=== PATIENT | female | born 1960 | race Caucasian/White ===

== ENCOUNTER 2020-08-04 16:13 | Outpatient (REF) | payer MEDICAID, SELFPAY ==
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
== END 2020-08-04 16:14 | disposition home or self-care (01) ==
LOC: HO.MAMMO 16:13
PROVIDERS: Visit Provider Internal Medicine
DX: Z12.31 Encounter for screening mammogram for malignant neoplasm of breast (principal)
CPT/HCPCS: 77063; 77067

== ENCOUNTER 2020-10-02 16:22 | Emergency (ER) | payer OTHER, MEDICAID, SELFPAY ==
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
[2020-10-02 16:42] VITALS: BP 177/95; PULSE 76; RESP 18; TEMP 35.7; O2SAT 97
[2020-10-02 16:45] VITALS: BP 180/80; PULSE 80; O2SAT 98
[2020-10-02 16:48] VITALS: BP 177/82; PULSE 78; RESP 18; TEMP 36.9; O2SAT 97; BMI 30.6
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
--- NOTE | 2020-10-02 18:07 | PC.NURSE ---
pt ambulating to restroom w c collar on despite educationfrom this rn. pt cleared from c spine by provider while in restroom. pt then ambulated to xray w slow, steady gait.
== END 2020-10-02 20:46 | disposition home or self-care (01) ==
PROVIDERS: Emergency Provider Internal Medicine
DX: S00.83XA Contusion of other part of head, initial encounter (principal); S80.02XA Contusion of left knee, initial encounter; S60.222A Contusion of left hand, initial encounter; S70.02XA Contusion of left hip, initial encounter; S16.1XXA Strain of muscle, fascia and tendon at neck level, initial encounter; V43.62XA Car passenger injured in collision with other type car in traffic accident, initial encounter; M16.0 Bilateral primary osteoarthritis of hip; M17.12 Unilateral primary osteoarthritis, left knee; Y93.89 Activity, other specified; Y92.414 Local residential or business street as the place of occurrence of the external cause; Y99.9 Unspecified external cause status
CPT/HCPCS: 70450; 71046; 72125; 73120; 73502; 73564; 99284

== ENCOUNTER 2020-10-13 16:02 | Outpatient (REF) | payer MEDICAID, OTHER, SELFPAY | END 2020-10-13 16:03 | disposition home or self-care (01) | LOC: HO.HOSX 16:02 | PROVIDERS: Visit Provider Orthopaedic Surgery | DX: Z13.89 Encounter for screening for other disorder (principal) ==

== ENCOUNTER → 2020-10-27 11:14 | Outpatient (BNVA) | payer MEDICAID, SELFPAY | PROVIDERS: PCP Internal Medicine; Visit Provider Orthopaedic Surgery | DX: M79.642 Pain in left hand (principal); M25.532 Pain in left wrist; M79.632 Pain in left forearm | CPT/HCPCS: 99202 ==

== ENCOUNTER 2020-12-11 13:39 | Outpatient (REF) | payer MEDICAID, SELFPAY ==
[2020-12-12 04:52] LABS: CT PCR NOT DETECTED (Not Detect.); NG PCR NOT DETECTED (Not Detect.)
[2020-12-12 11:58] LABS: BV Int Neg Control Negative (Negative); BV Int Pos Control Positive (Positive)
== END 2020-12-11 13:40 | disposition home or self-care (01) ==
LOC: HO.LAB 13:39
PROVIDERS: PCP Internal Medicine; Visit Provider Obstetrics & Gynecology
DX: R10.2 Pelvic and perineal pain (principal); N76.6 Ulceration of vulva; R31.29 Other microscopic hematuria
CPT/HCPCS: 87086; 87255; 87480; 87491; 87510; 87591; 87660; 99212

== ENCOUNTER 2020-12-31 12:33 | Outpatient (REF) | payer MEDICAID, SELFPAY ==
--- NOTE | ~2020-12-31 | US_ITS ---
EXAMINATION: PELVIC ULTRASOUND CLINICAL INFORMATION: Pain COMPARISON: Previous CT of the abdomen and pelvis February 2020 and pelvic ultrasound February 2015 TECHNIQUE: Transabdominal and transvaginal pelvic ultrasound was performed. Transvaginal exam was performed for better visualization of the uterus and ovaries. Exam is limited due to patient body habitus. FINDINGS: The uterus measures 6 x 3 x 3.8 cm in dimension. No focal uterine lesion is seen. Endometrial thickness is normal measuring 0.4 cm. There are multiple nabothian cysts in the cervix. The right ovary is normal-appearing and measures 2.4 x 1.1 x 1.2 cm. The left ovary is not seen. There is no fluid in the pelvis. US/US pelvic and transvaginal IMPRESSION: Very limited exam. Normal-appearing uterus and right ovary. Left ovary not seen.
== END 2020-12-31 12:34 | disposition home or self-care (01) ==
LOC: HO.US 12:33
PROVIDERS: Visit Provider Obstetrics & Gynecology
DX: R10.2 Pelvic and perineal pain (principal)
CPT/HCPCS: 76830; 76856

== ENCOUNTER → 2021-01-26 11:49 | Outpatient (BNVA) | payer MEDICAID, SELFPAY | PROVIDERS: Visit Provider Obstetrics & Gynecology ==

== ENCOUNTER 2021-02-03 11:38 | Outpatient (REF) | payer MEDICAID, SELFPAY ==
[2021-02-04 08:50] LABS: HBsAGNum1 0.18 S/CO (0.00-0.99); HIV AB/AG Nonreactive (Nonreactive); HIV Num 1 0.05 S/CO (0.00-0.99); Hepatitis B Surface Antigen Negative (Negative); ~HepC Num1 0.11 S/CO (0.00-0.79); ~Hepatitis C Antibody Nonreactive (Nonreactive)
[2021-02-04 09:10] LABS: Syphilis Screen Reactive (Nonreactive)
[2021-02-08 17:21] LABS: HSV 1 IgM IFA Negative (Negative); HSV 2 IgM IFA Negative (Negative)
[2021-02-14 13:16] LABS: RPR Quantitative Reactive 1:1 (Nonreactive); T.Pallidum Particle Agg Test Reactive (Nonreactive)
== END 2021-02-03 11:39 | disposition home or self-care (01) ==
LOC: HO.LAB 11:38
PROVIDERS: PCP Internal Medicine; Visit Provider Obstetrics & Gynecology
DX: Z01.84 Encounter for antibody response examination (principal); Z11.4 Encounter for screening for human immunodeficiency virus [HIV]; Z11.3 Encounter for screening for infections with a predominantly sexual mode of transmission; Z11.59 Encounter for screening for other viral diseases; A60.9 Anogenital herpesviral infection, unspecified
CPT/HCPCS: 36415; 86592; 86695; 86696; 86780; 86803; 87340; 87389

== ENCOUNTER → 2021-02-18 13:07 | Outpatient (BNVA) | payer MEDICAID, SELFPAY | PROVIDERS: Visit Provider Obstetrics & Gynecology | DX: R31.29 Other microscopic hematuria (principal); A60.00 Herpesviral infection of urogenital system, unspecified; A52.8 Late syphilis, latent | CPT/HCPCS: 99212; J0561 ==

== ENCOUNTER → 2021-02-25 12:59 | Outpatient (BNVA) | payer MEDICAID, SELFPAY | PROVIDERS: Visit Provider Obstetrics & Gynecology | DX: A52.8 Late syphilis, latent (principal); A60.00 Herpesviral infection of urogenital system, unspecified | CPT/HCPCS: 96372; 99202; 99211; J0561 ==

== ENCOUNTER 2021-03-03 14:48 | Outpatient (REF) | payer MEDICAID, SELFPAY ==
[2021-03-03 16:12] LABS: Blood Urea Nitrogen 15 mg/dL (9-16); Estimated Glomerular Filt Rate > 60
== END 2021-03-03 14:49 | disposition home or self-care (01) ==
LOC: HO.CT 14:48
PROVIDERS: Visit Provider Obstetrics & Gynecology
DX: R31.29 Other microscopic hematuria (principal); A52.8 Late syphilis, latent
CPT/HCPCS: 36415; 82565; 84520; 96372; 99211; J0561

== ENCOUNTER 2021-03-05 13:04 | Outpatient (REF) | payer MEDICAID, SELFPAY ==
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
[2021-03-05] MEDS: iohexoL 350 MG/ML 100 ML INFUS..BTL IV (13:51)
== END 2021-03-05 13:05 | disposition home or self-care (01) ==
LOC: HO.CT 13:04
PROVIDERS: Visit Provider Obstetrics & Gynecology
DX: R31.29 Other microscopic hematuria (principal)
CPT/HCPCS: 74178; Q9967

== ENCOUNTER 2021-03-18 13:58 | Outpatient (REF) | payer MEDICAID, SELFPAY ==
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
== END 2021-03-18 13:59 | disposition home or self-care (01) ==
LOC: HO.MAMMO 13:58
PROVIDERS: PCP Internal Medicine; Visit Provider Emergency Medicine
DX: N64.52 Nipple discharge (principal); R23.4 Changes in skin texture
CPT/HCPCS: 76642

== ENCOUNTER 2021-03-25 10:55 | Outpatient (REF) | payer MEDICAID, SELFPAY ==
--- NOTE | ~2021-03-25 | XR_ITS ---
EXAMINATION: XR HIP, RIGHT CLINICAL INFORMATION: Right hip pain. COMPARISON: Pelvic radiograph dated 10/02/2020. TECHNIQUE: 2 views of the right hip. FINDINGS: [id number] joint space narrowing with subchondral cirrhosis, subchondral cystic change, and marginal osteophytes. Findings are similar when compared to the prior examination. Right sacroiliac subchondral sclerosis and small marginal osteophytes. No fracture or dislocation. XR/XR hip RT min 2V IMPRESSION: Moderate right hip osteoarthritis, unchanged. [id number]-[id number] right sacroiliac joint osteoarthritis, unchanged.
== END 2021-03-25 10:56 | disposition home or self-care (01) ==
LOC: HO.XRAY 10:55
PROVIDERS: PCP Internal Medicine; Visit Provider Internal Medicine
DX: M25.551 Pain in right hip (principal)
CPT/HCPCS: 73502

== ENCOUNTER → 2021-04-03 11:07 | Outpatient (BNVA) | payer MEDICAID, SELFPAY | PROVIDERS: PCP Internal Medicine; Referring Provider Emergency Medicine; Visit Provider Surgery | DX: N64.52 Nipple discharge (principal); L29.8 Other pruritus; T21.01XS Burn of unspecified degree of chest wall, sequela; F17.210 Nicotine dependence, cigarettes, uncomplicated; Z88.6 Allergy status to analgesic agent | CPT/HCPCS: 99202 ==

== ENCOUNTER 2021-04-20 08:54 | Day surgery (SDC) | payer MEDICAID, SELFPAY ==
[2021-04-13 13:53] VITALS: BMI 42.0
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
[2021-04-20 09:36] LABS: Glucose, Whole Blood 119 mg/dL (60-115)
[2021-04-20 09:39] VITALS: BP 153/80; PULSE 63; RESP 16; TEMP 36.5; O2SAT 99
[2021-04-20] MEDS: Lactated Ringers 1,000 ML 100 ML IVCONT (09:59)
--- NOTE | 2021-04-20 10:00 | MHC.SHP ---
Pre-Procedural Eval Section A Date of Service: 04/20/21 The patient is an INPATIENT: No Changes since office visit: Yes Patient answered all questions; No Cold of Flu in the past 2 weeks, No New Medical Problems and No Changes in Medication The History & Physical has been completed within 30 days and I have reviewed it.: Yes Section B Chief Complaint: Nipple discharge Allergies: Allergies Allergy/AdvReac Type Severity Reaction Status Date / Time morphine [MORPHINE] Allergy Unknown UNKNOWN Verified 04/20/21 09:17 Plan Diagnosis/Plan: Unchanged I have reviewed the history and physical and performed a pertinent physical examination on my patient. No changes have occurred unless specified.
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
[2021-04-20 11:15] VITALS: BP 136/74; PULSE 53; RESP 16; TEMP 36.2; O2SAT 100
[2021-04-20 11:20] VITALS: BP 147/78; PULSE 56; RESP 18; O2SAT 100
[2021-04-20 11:25] VITALS: BP 149/78; PULSE 63; RESP 18; O2SAT 98
[2021-04-20 11:32] VITALS: BP 156/90; PULSE 60; RESP 18; O2SAT 97
[2021-04-20 11:47] VITALS: BP 167/83; PULSE 60; RESP 17; TEMP 36.4; O2SAT 97
[2022-11-12 11:34] VITALS: BMI 39.3
== END 2021-04-20 12:00 | disposition home or self-care (01) ==
PROVIDERS: PCP Internal Medicine; Visit Provider Surgery
PROC: (CPT 19120; principal; 2021-04-20 10:20)
DX: N63.0 Unspecified lump in unspecified breast (principal); N64.52 Nipple discharge; Z87.828 Personal history of other (healed) physical injury and trauma; Z94.5 Skin transplant status; F32.9 Major depressive disorder, single episode, unspecified; I10 Essential (primary) hypertension; G47.33 Obstructive sleep apnea (adult) (pediatric); J45.909 Unspecified asthma, uncomplicated; E11.9 Type 2 diabetes mellitus without complications; Z79.84 Long term (current) use of oral hypoglycemic drugs; Z79.82 Long term (current) use of aspirin; Z79.899 Other long term (current) drug therapy; Z88.8 Allergy status to other drugs, medicaments and biological substances; Z98.51 Tubal ligation status; F17.210 Nicotine dependence, cigarettes, uncomplicated
CPT/HCPCS: 19120; 82947; 88305; 88311; J0690; J2250; J2405; J3010

== ENCOUNTER → 2021-04-28 14:40 | Outpatient (BNVA) | payer MEDICAID, SELFPAY | PROVIDERS: PCP Internal Medicine; Referring Provider Internal Medicine; Visit Provider Surgery | DX: N60.01 Solitary cyst of right breast (principal); I10 Essential (primary) hypertension; E11.9 Type 2 diabetes mellitus without complications; E78.00 Pure hypercholesterolemia, unspecified; M79.7 Fibromyalgia; G47.33 Obstructive sleep apnea (adult) (pediatric); F17.210 Nicotine dependence, cigarettes, uncomplicated; F41.8 Other specified anxiety disorders; Z98.890 Other specified postprocedural states; Z88.6 Allergy status to analgesic agent; Z99.89 Dependence on other enabling machines and devices; Z79.84 Long term (current) use of oral hypoglycemic drugs; Z79.899 Other long term (current) drug therapy | CPT/HCPCS: 99212 ==

== ENCOUNTER 2021-06-26 13:48 | Outpatient (REF) | payer MEDICAID, SELFPAY ==
[2021-06-26 15:12] LABS: Syphilis Screen Reactive (Nonreactive)
[2021-07-02 13:26] LABS: RPR Quantitative Reactive 1:1 (Nonreactive); T.Pallidum Particle Agg Test Reactive (Nonreactive)
== END 2021-06-26 13:49 | disposition home or self-care (01) ==
LOC: HO.LAB 13:48
PROVIDERS: Visit Provider Internal Medicine
DX: A52.8 Late syphilis, latent (principal)
CPT/HCPCS: 36415; 86592; 86780

== ENCOUNTER → 2021-06-30 14:46 | Outpatient (BNVA) | payer MEDICAID, SELFPAY | PROVIDERS: Visit Provider Internal Medicine | DX: A52.8 Late syphilis, latent (principal) ==

== ENCOUNTER 2021-07-09 14:51 | Outpatient (REF) | payer MEDICAID, SELFPAY ==
[2021-07-09 16:43] LABS: Urine Cytology See Pathology rpt
== END 2021-07-09 14:52 | disposition home or self-care (01) ==
LOC: HO.LAB 14:51
PROVIDERS: PCP Internal Medicine
DX: R31.9 Hematuria, unspecified (principal)
CPT/HCPCS: 88112; 99202

== ENCOUNTER → 2021-07-28 11:17 | Outpatient (BNVA) | payer MEDICAID, SELFPAY | PROVIDERS: Visit Provider Internal Medicine ==

== ENCOUNTER 2021-07-30 14:59 | Outpatient (REF) | payer MEDICAID, SELFPAY ==
--- NOTE | ~2021-07-30 | US_ITS ---
EXAMINATION: US RETROPERITONEAL LIMITED (RENAL ONLY) CLINICAL INFORMATION: Hematuria, unspecified. COMPARISON: CT abdomen and pelvis without and with contrast 03/05/2021. TECHNIQUE: Real-time imaging of the kidneys. FINDINGS: RIGHT KIDNEY: 11.4 x 5.0 x 6.4 cm (SAG x AP x TRV). The kidney is normal in size, contour, and echogenicity. Renal cortical thickness is normal. There is a 1 x 0.9 x 0.7 cm hypoechoic lesion exophytic to the midpole this is similar in size to previous CT scan February 2021 when compared with previous CT scans this probably represents a hyperdense cyst. No renal calculi or hydronephrosis. LEFT KIDNEY: 11.0 x 5.8 x 5.7 cm (SAG x AP x TRV). The kidney is normal in size, contour, and echogenicity. Renal cortical thickness is normal. There is a 0.7 cm cyst with wall calcification or milk of calcium cyst in the lower pole. There is a 9 mm peripelvic cyst in the midpole. There are 2 small echogenic densities measuring 4 mm in the mid and lower pole questionable for small stones. No stone is seen on most recent CT of the abdomen and pelvis February 2021. No hydronephrosis. US/US renal BI IMPRESSION: Stable 1 cm hypoechoic lesion exophytic to the lateral mid right kidney. When compared with previous CT scans this probably represents a hyperdense or complex cyst. Small left renal cysts. Question small left renal stones. No stone is seen on recent CT of the abdomen and pelvis February 2021.
== END 2021-07-30 15:00 | disposition home or self-care (01) ==
LOC: HO.US 14:59
DX: R31.9 Hematuria, unspecified (principal)
CPT/HCPCS: 76775

== ENCOUNTER 2021-08-06 13:54 | Outpatient (REF) | payer MEDICAID, SELFPAY | END 2021-08-06 13:55 | disposition home or self-care (01) | LOC: HO.MAMMO 13:54 | PROVIDERS: Visit Provider Internal Medicine | DX: Z13.89 Encounter for screening for other disorder (principal) ==

== ENCOUNTER → 2021-08-18 12:54 | Outpatient (BNVA) | payer MEDICAID, SELFPAY | PROVIDERS: PCP Internal Medicine; Referring Provider Internal Medicine; Visit Provider Surgery | DX: N64.4 Mastodynia (principal); Z98.890 Other specified postprocedural states | CPT/HCPCS: 99212 ==

== ENCOUNTER 2021-08-21 11:58 | Outpatient (REF) | payer MEDICAID, SELFPAY ==
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
== END 2021-08-21 11:59 | disposition home or self-care (01) ==
LOC: HO.MAMMO 11:58
PROVIDERS: Visit Provider Surgery
DX: N64.4 Mastodynia (principal); Z98.890 Other specified postprocedural states
CPT/HCPCS: 76641

== ENCOUNTER → 2021-09-03 15:01 | Outpatient (BNVA) | payer MEDICAID, SELFPAY | PROVIDERS: PCP Internal Medicine; Referring Provider Internal Medicine; Visit Provider Surgery | DX: N64.4 Mastodynia (principal) | CPT/HCPCS: 99212 ==

== ENCOUNTER 2021-09-17 06:40 | Outpatient (REF) | payer MEDICAID, SELFPAY ==
--- NOTE | ~2021-09-17 | XR_ITS ---
EXAMINATION: XR PELVIS CLINICAL INFORMATION: Pain COMPARISON: Previous hip x-rays from September and March 2021 TECHNIQUE: AP view of the pelvis. FINDINGS: There is bilateral hip arthritis, right greater than left. This does not appear appreciably changed. There is soft tissue ossification adjacent to the left greater trochanter. Bones of the pelvis are normal. There are degenerative changes of the visualized lower lumbar spine. Soft tissues are normal. XR/XR pelvis 1-2V IMPRESSION: Bilateral hip arthritis, right greater than left.
== END 2021-09-17 06:41 | disposition home or self-care (01) ==
LOC: HO.HOSX 06:40
PROVIDERS: Visit Provider Physician Assistant
DX: M70.61 Trochanteric bursitis, right hip (principal)
CPT/HCPCS: 72170; 99202

== ENCOUNTER → 2021-09-22 08:29 | Outpatient (BNVA) | payer MEDICAID, SELFPAY | PROVIDERS: PCP Internal Medicine | DX: Z13.89 Encounter for screening for other disorder (principal) ==

== ENCOUNTER 2021-09-30 14:07 | Outpatient (REF) | payer MEDICAID, SELFPAY ==
[2021-09-30 17:28] LABS: CT PCR NOT DETECTED (Not Detect.); NG PCR NOT DETECTED (Not Detect.)
[2021-10-01 11:10] LABS: BV Int Neg Control Negative (Negative); BV Int Pos Control Positive (Positive)
== END 2021-09-30 14:08 | disposition home or self-care (01) ==
LOC: HO.LAB 14:07
PROVIDERS: PCP Internal Medicine; Visit Provider Obstetrics & Gynecology
DX: R10.2 Pelvic and perineal pain (principal); N39.0 Urinary tract infection, site not specified; N76.0 Acute vaginitis
CPT/HCPCS: 87086; 87480; 87491; 87510; 87591; 87660; 99212

== ENCOUNTER → 2021-10-08 14:02 | Outpatient (REF) | payer MEDICAID, SELFPAY | LOC: HO.CARD 14:02 | PROVIDERS: PCP Internal Medicine; Referring Provider Internal Medicine; Visit Provider Internal Medicine | DX: R00.2 Palpitations (principal); I10 Essential (primary) hypertension | CPT/HCPCS: 93005; 99202 ==

== ENCOUNTER → 2021-11-27 09:00 | Outpatient (REF) | payer MEDICAID, SELFPAY ==
--- NOTE | 2021-11-27 09:14 | ECG_ITS ---
Hook-up date: 2021-11-27 09:03:00 Duration: 47:59:00 Test Indications: PALPITATIONS Medications: 20170817 QRS complexes 12 Ventricular ectopics which represent <1 % of total QRS comp. 255 Supraventricular ectopics which represent <1 % of total QRS comp. * Paced QRS complexs which represent % of total QRS comp. VENTRICULAR ECTOPY 12 Isolated 0 Bigeminal Cycles 0 Couplets 0 Runs 0 Beats in Runs * Beats LONGEST at * BPM at :: -- * Beats FASTEST at * BPM at :: -- SUPRAVENTRICULAR ECTOPY 194 Isolated 10 Couplets 6 Runs 41 Beats in Runs 21 Beats LONGEST at 46 BPM at 07:21:25 2021-11-28 3 Beats FASTEST at 120 BPM at 18:59:19 2021-11-27 HEART RATES 35 MIN at 05:19:47 2021-11-28 70 AVG 135 MAX at 15:22:37 2021-11-28 LONGEST RR 2.5200 secs at 07:15:52 2021-11-28 S-T LEVELS Channel 1 - 128 mm at 09:03:00 2021-11-27 - 128 mm at 09:03:00 2021-11-27 Channel 2 - 128 mm at 09:03:00 2021-11-27 - 128 mm at 09:03:00 2021-11-27 Channel 3 - 128 mm at 02:82:21 -- - 128 mm at 02:82:21 Basic rhythm Normal sinus rhythm No sinus pauses noted. 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
--- NOTE | 2021-11-27 09:14 | CA_ITS ---
Transthoracic Echocardiogram Patient (Last, First, Middle): Violet Pascal, Gender: Female Date of : 1960 Age: 61 Procedure Date: 11/27/2021 Procedure Type: Transthoracic Echocardiogram Location: OP Height: 157.48 cm Weight: 106.6 kg BSA: 2.05 m2 Heart Rate: 62 bpm BP: 136 / 70 mmHg Representative Government Relations: SB Referring MD: Maury Glover MD Symptoms: R00.2 - Palpitations Study Quality: Adequate ECG Rhythm: Sinus Conclusions: - Normal left ventricular size and systolic function. The visually estimated ejection fraction is between 55-60%. - Elevated filling pressures. There is severe septal asymmetric hypertrophy. - Normal right ventricular cavity size and systolic function. - No significant valvular or pericardial pathology. Findings Left Ventricle Normal left ventricular size and systolic function. The visually estimated ejection fraction is between 55-60%. There is no evidence of regional wall motion abnormalities. Abnormal diastolic function is noted. Spectral Doppler is indicative of a pseudonormal filling pattern. Elevated filling pressures. There is severe septal asymmetric hypertrophy. Right Ventricle Normal right ventricular cavity size and systolic function. Atria The left atrium is normal in size. Aortic Valve Normal aortic valve structure and function. There is no aortic valve stenosis. There is no aortic valve regurgitation. Mitral Valve The mitral valve appears normal. There is no mitral valve regurgitation. There is no mitral valve stenosis. Pulmonic Valve Normal pulmonic valve structure and function. There is trace pulmonic valve regurgitation. Tricuspid Valve Normal tricuspid valve structure and function. There is no tricuspid valve regurgitation. Tricuspid regurgitation envelope is inadequate for calculation of right ventricular systolic pressure. Normal right atrial pressure. Great Vessels All visible segments of the aorta are normal in size. The visualized portions of the pulmonary artery and branches are normal. Venous The inferior vena cava is normal in size and collapses greater than 50% with inspiration. Pericardium/Pleural There is no evidence of pericardial effusion. Measurements 2D Linear Measurements IVSd: 1.47 0.6-0.9/0.6-1.0 cm LVIDd: 4.74 3.9-5.3/4.2-5.9 cm LVIDd Index: 2.31 2.4-3.2/2.2-3.1 cm/m2 LVIDs: 2.89 2.0-3.6 cm LVPWd: 0.84 0.7-1.1 cm Ao Root: 2.80 2.1-3.5 cm LA Diam: 3.10 2.7-3.8/3.0-4.0 cm LAIDs Index: 1.51 1.5-2.3 cm/m2 LV Mass: 253.82 67-162/88-224 g LV Mass Index: 123.81 43-95/49-115 g/m2 LVOT Diam: 2.00 3.0+(-)1.3 cm 2D Systolic Function EF 4C: 62.80 >55% EF 2C: 56.80 >55% Mitral Valve MV Pk E: 0.85 MV PK A: 0.59 MV Decel Time: 234.00 E/A: 1.40 E'Lateral: 8.63 E'Medial: 4.65 E/E' Med: 18.20 E/E' Lat: 9.80 PHT: 69.00 MVA PHT: 3.19 Decel Elk: 3.61 Aortic Valve AoV Pk Beny: 1.43 AoV Mn Beny: 0.96 AoV VTI: 0.31 AoV Pk Grad: 8.00 Aov Mn Grad: 4.00 SAMANTHA Cont.VTI: 2.48 LVOT LVOT Pk Beny: 1.10 LVOT Mn Beny: 0.80 LVOT VTI: 0.25 LVOT Pk Grad: 5.00 LVOT Mn Grad: 3.00 LVOT Diam: 2.00 LVOT Area: 3.14 Diastolic Function MV Pk E: 0.85 MV Pk A: 0.59 E/A: 1.40 E'Medial: 4.65 E/E' Med: 18.20 E' Laterial: 8.63 E/E' Lat: 9.80 Right Ventricle TAPSE (mm): 23.50 TVS' Beny: 12.20 Tricuspid Valve RA Press: 8.00 Great Vessels Aorta Ao Root-2D: 2.80 2.0-3.7 cm Sinus of Valsalva: 2.80 2.0-3.5 cm Ao Asc: 3.00 2.1-3.4 cm Pulmonary Veins Pulm Vein S/D 1.10 Pulmonary Valve PV Pk Beny: 0.78 Peak PV Grad: 2.00 Updated in Other Vendor System with Status of Final Placido Miller MD electronically signed on 11/28/2021 7:41:38 PM with status of Final
== END ==
LOC: HO.CARD 09:00
PROVIDERS: Visit Provider Internal Medicine
DX: R00.2 Palpitations (principal)
CPT/HCPCS: 93225; 93226; 93306

== ENCOUNTER 2021-11-29 15:43 | Emergency (ER) | payer MEDICAID, SELFPAY ==
--- NOTE | ~2021-11-29 | XR_ITS ---
EXAMINATION: XR CHEST CLINICAL INFORMATION: Cough. COMPARISON: Chest 10/02/2020 TECHNIQUE: 2 views of the chest were obtained. FINDINGS: No significant abnormality is noted involving the heart, lungs, mediastinum, bony thorax or soft tissues. XR/XR chest 2V IMPRESSION: Unremarkable chest examination.
[2021-11-29 15:47] VITALS: BP 184/88; PULSE 65; RESP 18; TEMP 36.4; O2SAT 100; BMI 43.5
[2021-11-29 16:26] LABS: COVID-19 Test Negative (Negative); IDNOW Serial# 16C4AD1C
--- NOTE | 2021-11-29 17:26 | ED_ITS ---
HPI - General Adult General Chief complaint: General Medical Stated complaint: exposure to COVID Time Seen by Provider: 11/29/21 16:56 Source: patient Mode of arrival: ambulatory History of Present Illness HPI narrative: 61-year-old female with a past medical history anxiety, depression, asthma, diabetes, hyperlipidemia, fibromyalgia, GERD, hypertension, MARK on CPAP, presenting to the ED requesting COVID-19 testing as lives with someone who just tested positive for COVID-19 today. Reports sinus pain, rhinorrhea, and productive cough. Denies fever, chills, chest pain, shortness breath Related Data Home Medications Medication Instructions Recorded Confirmed duloxetine 30 mg capsule,delayed 30 mg PO QPM 04/03/21 10/08/21 release duloxetine 60 mg capsule,delayed 60 mg PO QAM 04/03/21 10/08/21 release fluoride (sodium) 1.1 % dental appl PO BEDTIME 04/03/21 10/08/21 cream (SF 5000 Plus) hydrochlorothiazide 12.5 mg tablet 12.5 mg PO QAM 04/03/21 10/08/21 albuterol sulfate 1 amp inhalation Q6H PRN Wheezing 04/13/21 10/08/21 albuterol sulfate 90 mcg/actuation 2 puff inhalation Q4-6H PRN 04/13/21 10/08/21 aerosol inhaler (ProAir HFA) Wheezing aspirin 81 mg tablet,delayed 1 tab PO DAILY 04/13/21 10/08/21 release cetirizine 10 mg tablet 1 tab PO QAM 04/13/21 10/08/21 cholecalciferol (vitamin D3) 25 1 cap PO QAM 04/13/21 10/08/21 mcg (1,000 unit) capsule (Vitamin D3) cyclosporine 0.05 % eye drops in a 1 drp ophthalmic (eye) BID 04/13/21 10/08/21 dropperette (Restasis) docusate sodium 100 mg capsule 1 - 2 cap PO BEDTIME PRN 04/13/21 10/08/21 Constipation fluticasone propionate 50 2 spray intranasal DAILY 04/13/21 10/08/21 mcg/actuation nasal spray,suspension gabapentin 300 mg capsule 2 cap PO TID 04/13/21 10/08/21 glipizide 10 mg tablet 1 tab PO QAM 04/13/21 10/08/21 hydroxyzine pamoate 25 mg capsule 1 - 2 cap PO BEDTIME PRN Anxiety 04/13/21 10/08/21 loratadine 10 mg tablet 1 tab PO DAILY PRN allergies 04/13/21 10/08/21 metformin 500 mg tablet 2 tab PO 04/13/21 10/08/21 omeprazole 20 mg capsule,delayed 1 cap PO QAM 04/13/21 10/08/21 release sitagliptin 50 mg tablet (Januvia) 1 tab PO QAM 04/13/21 10/08/21 alcohol swabs (Alcohol Prep Pads) pad topical DAILY 07/09/21 10/08/21 lancets 33 gauge (TRUEplus Lancets) #100 ea 07/09/21 10/08/21 peg [id number] 1 1 drp ophthalmic (eye) QID PRN 07/09/21 10/08/21 %-0.2 %-0.2 % eye drops (Dry Eye Relief) ketoconazole 2 % shampoo topical 2XW 09/22/21 10/08/21 mometasone 0.1 % topical ointment topical 09/22/21 10/08/21 polyvinyl alcohol 1.4 % eye drops 1 drp ophthalmic (eye) 09/22/21 10/08/21 (Artificial Tears (polyvinyl alcohol)) atorvastatin 40 mg tablet 40 mg PO BEDTIME 10/08/21 10/08/21 losartan 50 mg tablet 50 mg PO DAILY 10/08/21 10/08/21 nifedipine 30 mg tablet,extended 30 mg PO DAILY 10/08/21 10/08/21 release Previous Rx's Medication Instructions Recorded cyclobenzaprine 5 mg tablet 10 mg PO TID PRN muscle spasm #10 10/02/20 tabs naproxen 500 mg tablet 500 mg PO BID PRN pain #10 tabs 10/02/20 oxycodone-acetaminophen 5 mg-325 1 tab PO Q6H PRN pain (scale score 04/20/21 mg tablet (Endocet) 7-10) #14 tabs ibuprofen 600 mg tablet 600 mg PO Q6H PRN pain #20 tabs 04/22/21 celecoxib 200 mg capsule (Celebrex) 200 mg PO BID 30 days #60 caps 09/17/21 nitrofurantoin 100 mg PO BID 5 days #10 caps 09/30/21 monohydrate/macrocrystals 100 mg capsule (Macrobid) terconazole 0.8 % vaginal cream 1 appful vaginal BEDTIME 3 days 09/30/21 #20 grams guaifenesin 200 mg/5 mL oral liquid 200 mg (5 mL) PO Q4H PRN cough 11/29/21 #118 mL Allergies Allergy/AdvReac Type Severity Reaction Status Date / Time morphine [MORPHINE] Allergy Unknown UNKNOWN Verified 10/08/21 14:18 Review of Systems Review of Systems: Constitutional: No Fever, No Chills ENT/Mouth: No Ear Pain, + Nasal Congestion, No Hoarseness, No sore throat, + Rhinorrhea, No Swallowing Difficulty Cardiovascular: No Chest Pain, No SOB Respiratory: + Cough, + Sputum, No Wheezing Gastrointestinal: No Nausea, No Vomiting, No Diarrhea, No Constipation, No Abdominal pain Genitourinary: No Dysuria, No Urinary Frequency, No Hematuria, No Urinary Incontinence/retention, No Flank Pain Musculoskeletal: No joint pain, No Myalgias, No Joint Swelling Skin: No Skin Lesions, No rash Neuro: No Weakness, No Numbness, No Paresthesias Yes all other systems are reviewed and are negative [facility] Past Medical History Attestation statement: The following information was validated with the patient. Medical History Anxiety and depression Arthritis Asthma Back pain Chronic sinusitis Diabetes Elevated cholesterol Fibromyalgia GERD (gastroesophageal reflux disease) HTN (hypertension) MARK on CPAP Smoker Surgical History H/O tubal ligation History of skin graft Hx of colonoscopy Hx of dilation and curettage Family History Family History Father No problems noted. Mother No problems noted. 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 Physical Exam ED Vital Signs: Vital Signs - 24 hr 11/29/21 15:47 Temperature 97.5 F Pulse Rate 65 Respiratory Rate 18 Blood Pressure 184/88 H Pulse Oximetry 100 Oxygen Delivery Method Room Air BMI result Body Mass Index 43.5 Const General: cooperative, healthy appearing, no acute distress, well developed, alert and awake Orientation/consciousness: patient oriented x3 Limitations: no limitations HENMT Head: Yes normal to inspection and Yes atraumatic Ears: hearing grossly normal bilaterally General nose exam: Normal external nose present Face and sinus: Yes normal facial exam Mouth: Normal oral and palatal mucosa present Throat: Yes posterior oropharynx normal, Yes tonsils normal, Yes uvula midline, No peritonsillar mass and No uvula laterally displaced Eyes General: appearance normal, both eyes and all related structures EOM: EOMs intact bilaterally Neck Neck: Yes normal visual inspection, Yes no lymphadenopathy, Yes no meningeal signs, Yes supple and No anterior neck swelling Resp Effort & Inspection: normal respiratory effort and no respiratory distress Auscultation: clear to auscultation bilaterally, no crackles, no rales, no rhonchi and no wheezes Cardio Rate: regular rate Heart sounds: S1 normal heart sound present and S2 normal heart sound present Skin Rashes: no rashes Wounds: no wounds Neuro General: patient oriented x3, tone normal and no meningeal signs Gait exam (Neuro): Normal gait present Extrem General: Yes normal to inspection Course Course Course Narrative: -COVID-19 negative CXR unremarkable Medical Decision Making [facility] Narrative Medical decision making narrative: 61-year-old female with a past medical history anxiety, depression, asthma, diabetes, hyperlipidemia, fibromyalgia, GERD, hypertension, MARK on CPAP, presenting to the ED requesting COVID-19 testing as lives with someone who just tested positive for COVID-19 today. On exam vital signs stable, NAD, nontoxic appearing, lungs CTA. Concern for viral illness vs pneumonia. Plan: COVID-19 testing, CXR Medical Records Medical records reviewed: Yes I reviewed the patient's medical records. Lab Data Lab results reviewed: Yes I reviewed the patient's lab results. Labs: Lab Results 11/29/21 Range/Units 15:55 COVID-19 (SAUL) Negative (Negative) COVID-19 Clin Com See Note Discharge Plan Discharge Clinical Impression: Acute viral syndrome Patient Disposition: Home, Self-Care Instructions: Viral Syndrome (ED) Additional Instructions: You tested negative for COVID-19. Her chest x-ray was unremarkable. Please consider getting retested in the next 3-5 days as you have had high exposure to COVID-19. If symptoms persist or worsen please return to the emergency department. Robitussin cough medicine was sent to the pharmacy. follow up with your doctor Kurt negativo para COVID-19. Galan radiograf?a de t?rax fue normal. Considere volver a hacerse la prueba en los pr?ximos 3 a 5 d?as, ya que wadsworth tenido geoffrey alyce exposici?n al COVID-19. Si los s?ntomas persisten o empeoran, regrese al departamento de emergencias. La medicina para la tos Robitussin fue enviada a la farmacia. seguimiento con galan m?dico Prescriptions: New guaifenesin 200 mg/5 mL liquid 200 mg PO Q4H PRN (Reason: cough) Qty: 118 0RF No Action ibuprofen 600 mg tablet 600 mg PO Q6H PRN (Reason: pain) Qty: 20 0RF cyclobenzaprine 5 mg tablet 10 mg PO TID PRN (Reason: muscle spasm) Qty: 10 0RF naproxen 500 mg tablet 500 mg PO BID PRN (Reason: pain) Qty: 10 0RF metformin 500 mg tablet 2 tab PO albuterol sulfate 2.5 mg /3 mL (0.083 %) solution for nebulization 1 amp inhalation Q6H PRN (Reason: Wheezing) cetirizine 10 mg tablet 1 tab PO QAM glipizide 10 mg tablet 1 tab PO QAM aspirin 81 mg tablet,delayed release (DR/EC) 1 tab PO DAILY docusate sodium 100 mg capsule 1 - 2 cap PO BEDTIME PRN (Reason: Constipation) gabapentin 300 mg capsule 2 cap PO TID omeprazole 20 mg capsule,delayed release(DR/EC) 1 cap PO QAM albuterol sulfate [ProAir HFA] 90 mcg/actuation HFA aerosol inhaler 2 puff inhalation Q4-6H PRN (Reason: Wheezing) fluticasone propionate 50 mcg/actuation spray,suspension 2 spray intranasal DAILY loratadine 10 mg tablet 1 tab PO DAILY PRN (Reason: allergies) hydroxyzine pamoate 25 mg capsule 1 - 2 cap PO BEDTIME PRN (Reason: Anxiety) cholecalciferol (vitamin D3) [Vitamin D3] 25 mcg (1,000 unit) capsule 1 cap PO QAM Restasis 0.05 % dropperette 1 drp ophthalmic (eye) BID Januvia 50 mg tablet 1 tab PO QAM oxycodone-acetaminophen [Endocet] 5-325 mg tablet 1 tab PO Q6H PRN (Reason: pain (scale score 7-10)) Qty: 14 0RF atorvastatin 40 mg tablet 40 mg PO BEDTIME nifedipine 30 mg tablet extended release 30 mg PO DAILY penicillin G benzathine 2,400,000 unit/4 mL syringe 2.4 mmu IM QWEEK Qty: 4 0RF alcohol swabs [Alcohol Prep Pads] Pads, Medicated topical DAILY Dry Eye Relief 1-0.2-0.2 % drops 1 drp ophthalmic (eye) QID PRN (DME) lancets [TRUEplus Lancets] 33 gauge misc See Rx Instructions Not Applicable BID Qty: 100 Rx Instructions: As directed terconazole 0.8 % cream 1 appful vaginal BEDTIME 3 Days Qty: 20 0RF nitrofurantoin monohyd/m-cryst [Macrobid] 100 mg capsule 100 mg PO BID 5 Days Qty: 10 0RF losartan 50 mg tablet 50 mg PO DAILY duloxetine 30 mg capsule,delayed release(DR/EC) 30 mg PO QPM duloxetine 60 mg capsule,delayed release(DR/EC) 60 mg PO QAM fluoride (sodium) [SF 5000 Plus] 1.1 % cream PO BEDTIME hydrochlorothiazide 12.5 mg tablet 12.5 mg PO QAM ketoconazole 2 % shampoo topical 2XW polyvinyl alcohol [Artificial Tears (polyvin alc)] 1.4 % drops 1 drp ophthalmic (eye) mometasone 0.1 % ointment topical celecoxib [Celebrex] 200 mg capsule 200 mg PO BID 30 Days Qty: 60 3RF Referrals: Pretty Molina MD [Primary Care Provider] - 3 days Print Language: Sami
== END 2021-11-29 18:19 | disposition home or self-care (01) ==
PROVIDERS: Emergency Provider Internal Medicine; PCP Internal Medicine
DX: B34.9 Viral infection, unspecified (principal); R05.9 Cough, unspecified; J34.89 Other specified disorders of nose and nasal sinuses; Z20.822 Contact with and (suspected) exposure to COVID-19; Z79.899 Other long term (current) drug therapy; F17.210 Nicotine dependence, cigarettes, uncomplicated; Z71.6 Tobacco abuse counseling
CPT/HCPCS: 71046; 87635; 99282

== ENCOUNTER 2021-12-02 13:55 | Outpatient (REF) | payer MEDICAID, SELFPAY ==
[2021-12-02 14:29] LABS: COVID-19 Test Negative (Negative); IDNOW Serial# 08D9AD1C
== END 2021-12-02 13:56 | disposition home or self-care (01) ==
LOC: HO.LAB 13:55
PROVIDERS: Visit Provider Internal Medicine
DX: Z20.822 Contact with and (suspected) exposure to COVID-19 (principal)
CPT/HCPCS: 87635; C9803

== ENCOUNTER → 2021-12-09 14:59 | Outpatient (REF) | payer MEDICAID, SELFPAY | LOC: HO.CARD 14:59 | PROVIDERS: Visit Provider Internal Medicine | DX: I42.2 Other hypertrophic cardiomyopathy (principal); I44.30 Unspecified atrioventricular block; I10 Essential (primary) hypertension | CPT/HCPCS: 99212 ==

== ENCOUNTER 2021-12-23 12:35 | Outpatient (REF) | payer MEDICAID, SELFPAY ==
--- NOTE | ~2021-12-23 | US_ITS ---
EXAMINATION: US PELVIS CLINICAL INFORMATION: Pelvic and perineal pain. COMPARISON: Previous pelvic ultrasound December [address] of the abdomen and pelvis February 2021. TECHNIQUE: Ultrasound of the pelvis is performed using both transabdominal and transvaginal transducers along with Doppler. Transvaginal imaging is performed due to inadequate visualization transabdominally. Exam is limited due to patient body habitus. FINDINGS: The uterus measures 8.4 x 4.6 x 6.3 cm in dimension. There is a large amount of fluid seen in the endometrial cavity. There is also fluid seen in the endocervical canal. This is a new finding from previous exams. No focal uterine lesion is seen. The ovaries are not seen. There is no fluid in the pelvis. US/US pelvic and transvaginal IMPRESSION: Limited exam. New large amount of fluid in the endometrial canal. The endometrium is not well visualized. Tissue sampling recommended.
== END 2021-12-23 12:36 | disposition home or self-care (01) ==
LOC: HO.US 12:35
PROVIDERS: Visit Provider Obstetrics & Gynecology
DX: R10.2 Pelvic and perineal pain (principal)
CPT/HCPCS: 76830; 76856

== ENCOUNTER → 2021-12-29 12:42 | Outpatient (REF) | payer MEDICAID, SELFPAY | LOC: HO.CARD 12:42 | PROVIDERS: Visit Provider Internal Medicine | DX: Z13.89 Encounter for screening for other disorder (principal) ==

== ENCOUNTER 2022-01-06 15:47 | Outpatient (REF) | payer MEDICAID, SELFPAY | END 2022-01-06 15:48 | disposition home or self-care (01) | LOC: HO.LAB 15:47 | PROVIDERS: Visit Provider Obstetrics & Gynecology | DX: R10.2 Pelvic and perineal pain (principal); R31.29 Other microscopic hematuria | CPT/HCPCS: 58100; 88305; 99212 ==

== ENCOUNTER → 2022-02-03 14:05 | Outpatient (BNVA) | payer MEDICAID, SELFPAY | PROVIDERS: PCP Internal Medicine; Visit Provider Obstetrics & Gynecology | DX: R10.2 Pelvic and perineal pain (principal) | CPT/HCPCS: 99212 ==

== ENCOUNTER 2022-03-02 14:27 | Outpatient (REF) | payer MEDICAID, SELFPAY ==
--- NOTE | ~2022-03-02 | US_ITS ---
EXAMINATION: US RETROPERITONEAL LIMITED (RENAL ONLY) CLINICAL INFORMATION: Cyst of kidney, acquired. COMPARISON: Ultrasound retroperitoneal limited (renal only) 07/30/2021. CT abdomen and pelvis without and with contrast 03/05/2021. TECHNIQUE: Real-time imaging of the kidneys. FINDINGS: RIGHT KIDNEY: 10.5 x 5.0 x 5.8 cm (SAG x AP x TRV). The kidney is normal in size, contour, and echogenicity. Renal cortical thickness is normal. There is a 9 x 6 x 7 mm heterogeneous but partially hyperechoic lesion exophytic to the lateral midpole. There is a 7 x 8 x 7 mm hypoechoic lesion exophytic to the lower pole with internal echoes. There is a 4 mm simple cyst in the lower pole. There are 2 stones measuring 4 and 7 mm in the upper pole. No hydronephrosis. LEFT KIDNEY: 11.0 x 4.7 x 5.0 cm (SAG x AP x TRV). The kidney is normal in size, contour, and echogenicity. Renal cortical thickness is normal. There is a 8 x 6 x 8 mm cyst with peripheral wall calcification or milk of calcium cyst in the lower pole. No renal calculi or hydronephrosis. US/US renal BI IMPRESSION: Question right upper pole renal stones and bilateral complex cysts. Small right renal simple cyst.
== END 2022-03-02 14:28 | disposition home or self-care (01) ==
LOC: HO.US 14:27
DX: N28.1 Cyst of kidney, acquired (principal); R00.2 Palpitations; I42.2 Other hypertrophic cardiomyopathy; I10 Essential (primary) hypertension
CPT/HCPCS: 76775; 99212

== ENCOUNTER → 2022-03-09 15:50 | Outpatient (BNVA) | payer MEDICAID, SELFPAY | PROVIDERS: PCP Internal Medicine; Visit Provider Surgery | DX: N64.4 Mastodynia (principal); Z98.890 Other specified postprocedural states | CPT/HCPCS: 99212 ==

== ENCOUNTER 2022-03-10 16:04 | Outpatient (REF) | payer MEDICAID, SELFPAY ==
--- NOTE | ~2022-03-10 | MM_ITS ---
EXAMINATION: MM SCREENING DIGITAL BREAST TOMOSYNTHESIS, BILATERAL CLINICAL INFORMATION: Screening. Asymptomatic. The lifetime risk of breast cancer based on the Tyrer-Cuzick Model is 7%. COMPARISON: Mammography: 08/04/2020, 07/13/2019, 07/10/2018 TECHNIQUE: Digital breast tomosynthesis is performed in both the craniocaudal and mediolateral oblique views along with computer-aided detection (CAD). Synthesized 2D images are generated from the tomosynthesis. FINDINGS: There are scattered areas of fibroglandular density (ACR BI-RADS breast composition Category b). Breast tissue composition borders on predominantly fatty. There is old scarring right breast with benign dystrophic calcification in the scar similar to prior studies. Intramammary node again noted central 11:30 left breast. There is no interval mass or architectural abnormality or abnormal calcifications. No significant changes. MM/MM tomosynthesis screening BI IMPRESSION: No mammographic evidence of malignancy. ASSESSMENT: BI-RADS 2: Benign RECOMMENDATION: Routine annual mammography screening. This patient's information was entered into a reminder system with a target due date for their next mammogram.
== END 2022-03-10 16:05 | disposition home or self-care (01) ==
LOC: HO.MAMMO 16:04
PROVIDERS: PCP Internal Medicine; Visit Provider Internal Medicine
DX: Z12.31 Encounter for screening mammogram for malignant neoplasm of breast (principal)
CPT/HCPCS: 77063; 77067

== ENCOUNTER 2022-04-19 12:35 | Outpatient (REF) | payer MEDICAID, SELFPAY ==
[2022-04-19 17:04] LABS: Urine Cytology See Pathology rpt
== END 2022-04-19 12:36 | disposition home or self-care (01) ==
LOC: HO.LAB 12:35
PROVIDERS: PCP Internal Medicine; Visit Provider Urology
DX: R31.29 Other microscopic hematuria (principal); N28.1 Cyst of kidney, acquired
CPT/HCPCS: 88112; 99212

== ENCOUNTER 2022-05-05 15:03 | Outpatient (REF) | payer MEDICAID, SELFPAY ==
[2022-05-07 07:39] LABS: Creatinine POC 0.6 mg/dL (0.5-1.4); GFR POC > 60
== END 2022-05-05 15:04 | disposition home or self-care (01) ==
LOC: HO.CT 15:03
PROVIDERS: PCP Internal Medicine; Visit Provider Urology
DX: R31.29 Other microscopic hematuria (principal)
CPT/HCPCS: 82565

== ENCOUNTER 2022-05-10 11:51 | Outpatient (REF) | payer MEDICAID, SELFPAY ==
--- NOTE | ~2022-05-10 | CT_ITS ---
EXAMINATION: CT ABDOMEN WITHOUT AND WITH CONTRAST CLINICAL INFORMATION: Microscopic hematuria COMPARISON: Previous CT of the abdomen and pelvis February 2021 and previous renal ultrasound February 2022 and pelvic ultrasound December 2021 TECHNIQUE: Contiguous axial thin section helical images of the abdomen were performed before and after the administration of oral contrast and 85 mL of Omnipaque 350 intravenous contrast. The data set was reformatted in the coronal and sagittal planes and reviewed on an independent workstation. This CT examination was performed using dose optimization techniques as appropriate, variously including the following: *Automated exposure control *Adjustment of mA and/or kV according to patient size (this includes techniques or standardized protocols for targeted exams where dose is matched to indication/reason for exam; i.e. extremities or head) *Use of iterative reconstruction technique DLP: 894 mGy-cm FINDINGS: LUNG BASES: Normal LIVER, GALLBLADDER, AND BILIARY TREE: Normal PANCREAS: Normal SPLEEN: Normal ADRENAL GLANDS AND KIDNEYS: Stable 1.5 x 2.2 cm low-attenuation left adrenal lesion probably representing a benign neuroma. Normal right adrenal gland. Innumerable small less than 1 cm renal cysts. Small 7 mm lesion exophytic to the lateral midpole of right kidney probably representing a complex cyst axial image 49 series 4 and medial upper pole left kidney probably representing a complex cyst, axial image 49 series 4 on the right and 41 series 4 on the left. Similar appearing to February 2021 exam. No stone or hydronephrosis. BOWEL LOOPS: Diverticulosis of the colon. Visualized small and large bowel is otherwise normal. Normal appendix. Normal stomach. LYMPH NODES: Normal. VASCULAR: Unremarkable. BONES: Degenerative changes of the spine. CT/CT abdomen wo/w IV con IMPRESSION: Multiple small bilateral renal cysts. 7 mm complex cyst exophytic to the lateral mid pole right kidney and exophytic to the medial upper pole of the left kidney. The remainder of the cysts probably represent simple cysts cysts. Stable low-attenuation left adrenal lesion probably representing a benign. Diverticulosis of the colon. Fleischner guidelines were followed.
[2022-05-10] MEDS: iohexoL 350 MG/ML 100 ML INFUS..BTL 85 ML IV (12:42)
[2022-05-11 07:21] LABS: Creatinine POC 0.7 mg/dL (0.5-1.4); GFR POC > 60
== END 2022-05-10 11:52 | disposition home or self-care (01) ==
LOC: HO.CT 11:51
PROVIDERS: PCP Internal Medicine; Visit Provider Urology
DX: N28.1 Cyst of kidney, acquired (principal); R31.29 Other microscopic hematuria
CPT/HCPCS: 74170; 82565; Q9967

== ENCOUNTER → 2022-05-14 12:54 | Outpatient (REF) | payer MEDICAID, SELFPAY ==
--- NOTE | 2022-05-14 12:57 | HM_ITS ---
Conclusion: 1. Patient was monitored for total period of 1 day and 23 hours 2. Baseline was normal sinus rhythm with average heart rate of 71 beats per minute 3. No significant pauses noted 4. Occasional PACs noted with total burden of 0.16% 5. No patient reported symptoms MTDD
== END ==
LOC: HO.CARD 12:54
PROVIDERS: PCP Internal Medicine; Visit Provider Internal Medicine
DX: R00.2 Palpitations (principal); I44.30 Unspecified atrioventricular block; I42.2 Other hypertrophic cardiomyopathy
CPT/HCPCS: 93226

== ENCOUNTER → 2022-07-06 12:31 | Outpatient (BNVA) | payer MEDICAID, SELFPAY | PROVIDERS: PCP Internal Medicine; Referring Provider Internal Medicine; Visit Provider Nurse Practitioner Family | DX: R00.2 Palpitations (principal); I44.30 Unspecified atrioventricular block; I42.2 Other hypertrophic cardiomyopathy; I10 Essential (primary) hypertension | CPT/HCPCS: 99212 ==

== ENCOUNTER → 2022-07-09 15:08 | Outpatient (BNVA) | payer MEDICAID, SELFPAY | PROVIDERS: PCP Internal Medicine; Visit Provider Urology | DX: R31.29 Other microscopic hematuria (principal); N32.81 Overactive bladder; N76.0 Acute vaginitis; F17.210 Nicotine dependence, cigarettes, uncomplicated; Z79.82 Long term (current) use of aspirin; Z79.899 Other long term (current) drug therapy | CPT/HCPCS: 52000; 99212 ==

== ENCOUNTER 2022-09-13 13:35 | Outpatient (REF) | payer MEDICAID, SELFPAY ==
--- NOTE | ~2022-09-13 | XR_ITS ---
EXAMINATION: XR RIBS, BILATERAL CLINICAL INFORMATION: Bilateral rib pain COMPARISON: None available. TECHNIQUE: 3 views of the bilateral ribs were obtained. FINDINGS: Lungs are clear. No consolidation, pneumothorax, or pleural effusion. The cardiomediastinal silhouette and pulmonary vasculature are normal. Osseous structures are unremarkable. Ribs are intact. No fractures are identified. XR/XR ribs BI min 4V w CXR1V IMPRESSION: Unremarkable bilateral rib examination.
== END 2022-09-13 13:36 | disposition home or self-care (01) ==
LOC: HO.XRAY 13:35
PROVIDERS: PCP Internal Medicine; Visit Provider Registered Nurse
DX: M79.7 Fibromyalgia (principal); R31.29 Other microscopic hematuria; R10.2 Pelvic and perineal pain; R39.9 Unspecified symptoms and signs involving the genitourinary system; R39.15 Urgency of urination
CPT/HCPCS: 71111; 99212

== ENCOUNTER 2022-09-13 16:34 | Outpatient (REF) | payer MEDICAID, SELFPAY | END 2022-09-13 16:35 | disposition home or self-care (01) | LOC: HO.LAB 16:34 | PROVIDERS: Visit Provider Urology | DX: R31.29 Other microscopic hematuria (principal) | CPT/HCPCS: 87086 ==

== ENCOUNTER → 2022-10-13 12:47 | Outpatient (BNVA) | payer MEDICAID, SELFPAY | PROVIDERS: PCP Internal Medicine; Visit Provider Obstetrics & Gynecology | DX: R23.8 Other skin changes (principal) | CPT/HCPCS: 99212 ==

== ENCOUNTER → 2022-10-25 14:53 | Outpatient (REF) | payer MEDICAID, SELFPAY ==
--- NOTE | 2022-10-25 14:55 | CA_ITS ---
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 The calculated ejection fraction is 58% by biplane method. - Severe focal hypertrophy of the basal septum. - There is mild calcification of the aortic valve. - No obvious valvular pathology seen on this study. Findings Left Ventricle Normal left ventricular cavity size. There is mildly increased left ventricular wall thickness. The left ventricular systolic function is normal. The calculated ejection fraction is 58% by biplane method. There is no evidence of regional wall motion abnormalities. Diastolic function is normal for age. Severe focal hypertrophy of the basal septum. LV peak GLS 14.2%. Right Ventricle Normal right ventricular cavity size and systolic function. Atria Both atria are normal in size. Aortic Valve There is a normal trileaflet aortic valve. There is mild calcification of the aortic valve. There is no aortic valve stenosis. There is no aortic valve regurgitation. Mitral Valve The mitral valve appears normal. There is no mitral valve regurgitation. There is no mitral valve stenosis. Pulmonic Valve The pulmonic valve is likely normal. Tricuspid Valve There is no tricuspid valve regurgitation. Tricuspid regurgitation envelope is inadequate for calculation of right ventricular systolic pressure. Great Vessels The asc aorta is normal in size. Small plaque is seen in the sino tubular ridge. Venous The inferior vena cava is normal in size and collapses less than 50% with inspiration. Pericardium/Pleural There is no evidence of pericardial effusion. Prior Study Comparison No significant change compared to prior study dated: 11/27/2021. Recommendations, Care & Conclusions No obvious valvular pathology seen on this study. Measurements 2D Linear Measurements IVSd: 1.48 0.6-0.9/0.6-1.0 cm LVIDd: 4.45 3.9-5.3/4.2-5.9 cm LVIDd Index: 2.19 2.4-3.2/2.2-3.1 cm/m2 LVIDs: 2.93 2.0-3.6 cm LVPWd: 1.17 0.7-1.1 cm LA Diam: 3.20 2.7-3.8/3.0-4.0 cm LAIDs Index: 1.58 1.5-2.3 cm/m2 LV Mass: 280.58 67-162/88-224 g LV Mass Index: 138.22 43-95/49-115 g/m2 LVOT Diam: 2.10 3.0+(-)1.3 cm 2D Systolic Function EF 4C: 60.00 >55% EF 2C: 53.70 >55% EF BiP: 57.50 >55% Mitral Valve MV Pk E: 0.68 MV PK A: 0.60 MV Decel Time: 275.00 E/A: 1.10 E'Lateral: 9.03 E'Medial: 5.77 E/E' Med: 11.70 E/E' Lat: 7.50 PHT: 80.00 MVA PHT: 2.75 Decel Butler: 2.46 Aortic Valve AoV Pk Beny: 1.45 AoV Mn Beny: 0.98 AoV VTI: 0.33 AoV Pk Grad: 8.00 Aov Mn Grad: 4.00 SAMANTHA Cont.VTI: 2.43 LVOT LVOT Pk Beny: 1.10 LVOT Mn Beny: 0.70 LVOT VTI: 0.23 LVOT Pk Grad: 5.00 LVOT Mn Grad: 2.00 LVOT Diam: 2.10 LVOT Area: 3.46 Diastolic Function MV Pk E: 0.68 MV Pk A: 0.60 E/A: 1.10 E'Medial: 5.77 E/E' Med: 11.70 E' Laterial: 9.03 E/E' Lat: 7.50 Right Ventricle TAPSE (mm): 25.40 TVS' Beny: 12.50 Tricuspid Valve RA Press: 8.00 Great Vessels Aorta Sinus of Valsalva: 3.02 2.0-3.[address] Ridge: 2.19 1.7-3.4 cm Ao Asc: 3.40 2.1-3.4 cm Updated in Other Vendor System with Status of Final Maury Glover MD electronically signed on 10/26/2022 12:23:04 PM with status of Final
== END ==
LOC: HO.CARD 14:53
PROVIDERS: PCP Internal Medicine; Visit Provider Nurse Practitioner Family
DX: I10 Essential (primary) hypertension (principal); I42.2 Other hypertrophic cardiomyopathy
CPT/HCPCS: 93306; 93356

== ENCOUNTER → 2022-11-09 15:13 | Outpatient (BNVA) | payer MEDICAID, SELFPAY | PROVIDERS: PCP Internal Medicine; Visit Provider Surgery | DX: K60.2 Anal fissure, unspecified (principal) | CPT/HCPCS: 99212 ==

== ENCOUNTER 2022-11-16 08:52 | Day surgery (SDC) | payer MEDICAID, SELFPAY ==
[2022-11-12 11:36] VITALS: BMI 39.3
[2022-11-16 10:29] LABS: Glucose, Whole Blood 210 mg/dL (60-115)
--- NOTE | 2022-11-16 10:41 | ECG_ITS ---
Test Reason : postop Blood Pressure : / mmHG Vent. Rate : 054 BPM Atrial Rate : 054 BPM P-R Int : 268 ms QRS Dur : 084 ms QT Int : 434 ms P-R-T Axes : 016 000 005 degrees QTc Int : 411 ms Sinus bradycardia with 1st degree A-V block Otherwise normal ECG When compared with ECG of 10-MAR-2020 12:45, TX interval has increased Non-specific change in ST segment in Inferior leads Referred By: Adam Dillard Electronically Signed By:Placido Miller
[2022-11-16 10:49] VITALS: BP 126/57; PULSE 54; RESP 16; TEMP 36.1; O2SAT 98
[2022-11-16] MEDS: Lactated Ringers 1,000 ML 100 ML IVCONT (10:51)
--- NOTE | 2022-11-16 13:51 | P.HPSUR_ITS ---
Pre-Procedural Eval Section A Date of Service: 11/16/22 The patient is an INPATIENT: No The History & Physical has been completed within 30 days and I have reviewed it.: No Section B Chief Complaint: Other microscopic hematuria Details of Present Illness: Violet is a 62 year old [place] speaking female complains having pain in the pelvis region since 6 months. Complains pain while having a full bladder. CAT scan results reviewed--05/10/2022- Suggestive of 7 mm complex cyst in the right kidney and bilateral simple cyst, no kidney stones. Relevant Family History (Specify if Yes): No Relevant Social History: None Allergies: Allergies Allergy/AdvReac Type Severity Reaction Status Date / Time morphine [MORPHINE] Allergy Unknown UNKNOWN Verified 11/16/22 09:44 Review of Systems Review of Systems Comment: 10 point ROS negative other that stated in HPI Exam Surgical H&P Exam: Normal: HEENT, Normal: Heart, Normal: Lungs, Normal: Skin and Normal: Neurological Plan Diagnosis/Plan: Unchanged I have reviewed the history and physical and performed a pertinent physical examination on my patient. No changes have occurred unless specified. Cystoscopy. Discussed risks to include but not limited to, blood in the urine, burning with urination, urgency. Time Spent With Patient Time: Total time managing care of this patient today ____ minutes.
--- NOTE | 2022-11-16 14:04 | P.CONAN_ITS ---
Documented by User: Mary Santana NP 11/15/22 10:53 HPI - Anesthesia Eval Consult details Narrative: 62yo F for Cystoscopy Hydrodistention of Bladder with poss bladder biopsy Cardiac optimized ( She does have cardiac risk factors but no known CAD. She does have severe basal septal hypertrophy without obstruction.? ) [facility] Active Problems Active Problems: All Active Problems (Updated 10/13/22 @ 13:10 by Ramesh Gurrola MD) Papule of skin (Acute) Urinary urgency (Acute) UTI symptoms (Acute) Pelvic pain (Acute) Overactive bladder (Acute) Microscopic hematuria (Acute) Complex renal cyst (Acute) Heart block atrioventricular (Acute) Asymmetric septal hypertrophy (Acute) Essential hypertension (Acute) Heart palpitations (Acute) UTI (urinary tract infection) (Acute) Vulvovaginitis (Acute) Renal cyst (Acute) Trochanteric bursitis of right hip (Acute) Breast pain, right (Acute) Hematuria of unknown cause (Acute) S/P lumpectomy of breast (Acute 04/20/21) Left hand pain (Acute) Left wrist pain (Acute) Left forearm pain (Acute) Vulvar ulcer (Acute) Female pelvic pain (Acute) Microscopic hematuria (Acute) Herpes genitalia (Acute) Late latent syphilis (Acute) Nipple discharge (Acute) Past Medical History Medical History Anxiety and depression Arthritis Asthma Back pain Chronic sinusitis Diabetes Elevated cholesterol Fibromyalgia GERD (gastroesophageal reflux disease) Hematuria of unknown cause HTN (hypertension) MARK on CPAP Renal cyst Smoker Family History Family History Father No problems noted. Mother No problems noted. Maternal Aunt Breast cancer Surgical History Surgical History H/O tubal ligation History of skin graft Hx of colonoscopy Hx of dilation and curettage S/P lumpectomy of breast (04/20/21) History of Problems with Anesthesia: No Social History Social History Household Members Other:: Friend Are you a primary care transition coordinator to a significant other at home: No Do you presently have visiting nurse or other home services: Yes (Friend helps take care of her) Alcohol intake: never Patient Tobacco Use Status: Current everyday Tobacco user Tobacco use type: Cigarette Cigarette Packs Per Day: 0.25 Cigarettes Per Day: 6 Years Smoked: 30 Use of substances other than those prescribed or required for medical reasons: No Are you DNR?: No Advance Directives: No Advance Directives Information Provided: Yes Current occupational status: disabled 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 Meds Allergies Allergy/AdvReac Type Severity Reaction Status Date / Time morphine [MORPHINE] Allergy Unknown UNKNOWN Verified 11/16/22 09:44 Home Medications Medication Instructions Recorded Confirmed Last Taken Type duloxetine 30 mg capsule,delayed 30 mg PO QPM 04/03/21 11/16/22 11/16/22 08:15 History release (Cymbalta) duloxetine 60 mg capsule,delayed 60 mg PO QAM 04/03/21 11/16/22 11/16/22 08:15 History release (Cymbalta) fluoride (sodium) 1.1 % dental 1 appl dental BID 04/03/21 11/16/22 Unknown History cream (SF 5000 Plus) hydrochlorothiazide 12.5 mg tablet 12.5 mg PO QAM 04/03/21 11/16/22 Unknown History albuterol sulfate 2.5 mg/3 mL 1 amp inhalation Q6H PRN Wheezing 04/13/21 11/16/22 Unknown History (0.083 %) solution for nebulization albuterol sulfate 90 mcg/actuation 2 puff inhalation Q4-6H PRN 04/13/21 11/16/22 04/20/21 08:30 History aerosol inhaler (ProAir HFA) Wheezing cholecalciferol (vitamin D3) 25 1 cap PO QAM 04/13/21 11/16/22 Unknown History mcg (1,000 unit) capsule (Vitamin D3) cyclosporine 0.05 % eye drops in a 1 drp ophthalmic (eye) BID 04/13/21 11/16/22 Unknown History dropperette (Restasis) docusate sodium 100 mg capsule 1 - 2 cap PO BEDTIME PRN 04/13/21 11/16/22 Unknown History (Colace) Constipation fluticasone propionate 50 2 spray intranasal DAILY 04/13/21 11/16/22 04/20/21 08:30 History mcg/actuation nasal spray,suspension (Flonase Allergy Relief) lancets 33 gauge (TRUEplus Lancets) #100 ea 07/09/21 11/16/22 Unknown History ketoconazole 2 % shampoo 1 appl topical BID 09/22/21 11/16/22 Unknown History atorvastatin 40 mg tablet (Lipitor) 40 mg PO BEDTIME 10/08/21 11/16/22 Unknown History losartan 50 mg tablet (Cozaar) 50 mg PO DAILY 10/08/21 11/16/22 Unknown History aspirin 81 mg tablet,delayed 81 mg PO DAILY 03/02/22 11/16/22 11/14/22 History release (Adult Low Dose Aspirin) cetirizine 10 mg tablet (Allergy 10 mg PO QAM 03/02/22 11/16/22 11/16/22 08:15 History Relief (cetirizine)) gabapentin 300 mg capsule 600 mg PO TID 03/02/22 11/16/22 11/16/22 08:15 History (Neurontin) glipizide 10 mg tablet 10 mg PO QAM 03/02/22 11/16/22 Unknown History omeprazole 20 mg capsule,delayed 20 mg PO QAM 03/02/22 11/16/22 11/16/22 08:15 History release sitagliptin phosphate 50 mg tablet 50 mg PO QAM 03/02/22 11/16/22 Unknown History (Januvia) loratadine 10 mg tablet (Claritin) 10 mg PO DAILY PRN allergies 07/06/22 11/16/22 Unknown History empagliflozin 25 mg tablet 25 mg PO QAM 07/09/22 11/16/22 Unknown History (Jardiance) metformin 1,000 mg tablet 1,000 mg PO BID 07/09/22 11/16/22 Unknown History nifedipine 20 mg capsule 20 mg PO DAILY 07/09/22 11/16/22 11/16/22 08:15 History risperidone 2 mg tablet (Risperdal) 2 mg PO BEDTIME 07/09/22 11/16/22 Unknown History carvedilol 6.25 mg tablet (Coreg) 6.25 mg PO BID 11/16/22 11/16/22 11/16/22 08:15 History celecoxib 200 mg capsule (Celebrex) 200 mg PO QAM 11/16/22 11/16/22 11/16/22 08:15 History dulaglutide 0.75 mg/0.5 mL mg subcut QWEEK 11/16/22 11/16/22 Unknown History subcutaneous pen injector (Trulicity) ibuprofen 600 mg tablet (IBU) 600 mg PO Q6H PRN pain 11/16/22 11/16/22 11/13/22 History naproxen 500 mg tablet (Naprosyn) 500 mg PO BID PRN pain 11/16/22 11/16/22 11/13/22 History tdswrgfi-[id number]-lhkczmbpd 3.5 otic (ears) 11/16/22 Unknown History mg/mL-10,000 unit/mL-1 % ear solution Exam Exam Date and Time: November 15, 2022 1043 Height,Weight and Vital Signs: Height 5 ft 2 in Weight 97.522 kg Narrative Narrative: ECHO 10/2022 Conclusions: - The left ventricular systolic function is normal.? The ? calculated ejection fraction is 58% by biplane method. ? - Severe focal hypertrophy of the basal septum.? - There is mild calcification of the aortic valve. ? - No obvious valvular pathology seen on this study.? ? ? Assessment and Plan Assessment Anesthesia Assessment: Chart Reviewed Final Anesthetic Review History of Problems with Anesthesia: No Documented by User: Mckenzie Viveros DO 11/16/22 14:04 [facility] Past Medical History Medical History Anxiety and depression Arthritis Asthma Back pain Chronic sinusitis Diabetes Elevated cholesterol Fibromyalgia GERD (gastroesophageal reflux disease) Hematuria of unknown cause HTN (hypertension) MARK on CPAP Renal cyst Smoker Family History Family History Father No problems noted. Mother No problems noted. Maternal Aunt Breast cancer Surgical History Surgical History H/O tubal ligation History of skin graft Hx of colonoscopy Hx of dilation and curettage S/P lumpectomy of breast (04/20/21) History of Problems with Anesthesia: No Social History Social History Household Members Other:: Friend Are you a primary care transition coordinator to a significant other at home: No Do you presently have visiting nurse or other home services: Yes (Friend helps take care of her) Alcohol intake: never Patient Tobacco Use Status: Current everyday Tobacco user Tobacco use type: Cigarette Cigarette Packs Per Day: 0.25 Cigarettes Per Day: 6 Years Smoked: 30 Use of substances other than those prescribed or required for medical reasons: No Are you DNR?: No Advance Directives: No Advance Directives Information Provided: Yes Current occupational status: disabled 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 Meds Allergies Allergy/AdvReac Type Severity Reaction Status Date / Time morphine [MORPHINE] Allergy Unknown UNKNOWN Verified 11/16/22 09:44 Home Medications Medication Instructions Recorded Confirmed Last Taken Type duloxetine 30 mg capsule,delayed 30 mg PO QPM 04/03/21 11/16/22 11/16/22 08:15 History release (Cymbalta) duloxetine 60 mg capsule,delayed 60 mg PO QAM 04/03/21 11/16/22 11/16/22 08:15 History release (Cymbalta) fluoride (sodium) 1.1 % dental 1 appl dental BID 04/03/21 11/16/22 Unknown Hi story cream (SF 5000 Plus) hydrochlorothiazide 12.5 mg tablet 12.5 mg PO QAM 04/03/21 11/16/22 Unknown History albuterol sulfate 2.5 mg/3 mL 1 amp inhalation Q6H PRN Wheezing 04/13/21 Unknown History (0.083 %) solution for nebulization albuterol sulfate 90 mcg/actuation 2 puff inhalation Q4-6H PRN 04/13/21 11/16/22 04/20/21 08:30 History aerosol inhaler (ProAir HFA) Wheezing cholecalciferol (vitamin D3) 25 1 cap PO QAM 04/13/21 11/16/22 Unknown History mcg (1,000 unit) capsule (Vitamin D3) cyclosporine 0.05 % eye drops in a 1 drp ophthalmic (eye) BID 04/13/21 11/16/22 Unknown History dropperette (Restasis) docusate sodium 100 mg capsule 1 - 2 cap PO BEDTIME PRN 04/13/21 11/16/22 Unknown History (Colace) Constipation fluticasone propionate 50 2 spray intranasal DAILY 04/13/21 11/16/22 04/20/21 08:30 History mcg/actuation nasal spray,suspension (Flonase Allergy Relief) lancets 33 gauge (TRUEplus Lancets) #100 ea 07/09/21 11/16/22 Unknown History ketoconazole 2 % shampoo 1 appl topical BID 09/22/21 11/16/22 Unknown History atorvastatin 40 mg tablet (Lipitor) 40 mg PO BEDTIME 10/08/21 11/16/22 Unknown History losartan 50 mg tablet (Cozaar) 50 mg PO DAILY 10/08/21 11/16/22 Unknown History aspirin 81 mg tablet,delayed 81 mg PO DAILY 03/02/22 11/16/22 11/14/22 History release (Adult Low Dose Aspirin) cetirizine 10 mg tablet (Allergy 10 mg PO QAM 03/02/22 11/16/22 11/16/22 08:15 History Relief (cetirizine)) gabapentin 300 mg capsule 600 mg PO TID 03/02/22 11/16/22 11/16/22 08:15 History (Neurontin) glipizide 10 mg tablet 10 mg PO QAM 03/02/22 11/16/22 Unknown History omeprazole 20 mg capsule,delayed 20 mg PO QAM 03/02/22 11/16/22 11/16/22 08:15 History release sitagliptin phosphate 50 mg tablet 50 mg PO QAM 03/02/22 11/16/22 Unknown History (Januvia) loratadine 10 mg tablet (Claritin) 10 mg PO DAILY PRN allergies 07/06/22 11/16/22 Unknown History empagliflozin 25 mg tablet 25 mg PO QAM 07/09/22 11/16/22 Unknown History (Jardiance) metformin 1,000 mg tablet 1,000 mg PO BID 07/09/22 11/16/22 Unknown History nifedipine 20 mg capsule 20 mg PO DAILY 07/09/22 11/16/22 11/16/22 08:15 History risperidone 2 mg tablet (Risperdal) 2 mg PO BEDTIME 07/09/22 11/16/22 Unknown History carvedilol 6.25 mg tablet (Coreg) 6.25 mg PO BID 11/16/22 11/16/22 11/16/22 08:15 History celecoxib 200 mg capsule (Celebrex) 200 mg PO QAM 11/16/22 11/16/22 11/16/22 08:15 History dulaglutide 0.75 mg/0.5 mL mg subcut QWEEK 11/16/22 11/16/22 Unknown History subcutaneous pen injector (Trulicity) ibuprofen 600 mg tablet (IBU) 600 mg PO Q6H PRN pain 11/16/22 11/16/22 11/13/22 History naproxen 500 mg tablet (Naprosyn) 500 mg PO BID PRN pain 11/16/22 11/16/22 11/13/22 History gdxhicic-mygnuplbu-hphdnewur 3.5 otic (ears) 11/16/22 Unknown History mg/mL-10,000 unit/mL-1 % ear solution Exam Exam Date and Time: November 16, 2022 1400 Height,Weight and Vital Signs: Height 5 ft 2 in Weight 97.522 kg Vital Signs Temperature 96.9 F 11/16/22 10:49 Pulse Rate 54 11/16/22 10:49 Respiratory Rate 16 11/16/22 10:49 Blood Pressure 126/57 L 11/16/22 10:49 Pulse Oximetry 98 11/16/22 10:49 Oxygen Delivery Method Room Air 11/16/22 10:49 Temperature 96.9 F 11/16/22 10:49 Pulse Rate 54 11/16/22 10:49 Respiratory Rate 16 11/16/22 10:49 Blood Pressure 126/57 L 11/16/22 10:49 Pulse Oximetry 98 11/16/22 10:49 Oxygen Delivery Method Room Air 11/16/22 10:49 Airway Mallampati Class: II TM Dist: >3cm Neck ROM: Limited Loose/Missing/Broken Teeth: No (patient denies any loose or chipped teeth) Heart: S1S2 Lungs: CTAB Assessment and Plan Assessment Anesthesia Assessment: Anesthesia Plan Discussed and Chart Reviewed Final Anesthetic Review History of Problems with Anesthesia: No NPO: Yes ASA Class: III Final Preanesthetic Review: No Changes in Pt Med Stat, Meds/Allgs Chart Reviewed, Consent Obtained/Reviewed and Anes Risks/Benef Reviewed Patient Risk: Intermediate Procedure Risk: Low Anesthetic Plan Anesthetic Plan: GA and Agree w/ Assess. and Plan Disposition: Standard PACU
[2022-11-16 14:47] VITALS: BP 146/83; PULSE 59; RESP 16; TEMP 36.3; O2SAT 100
--- NOTE | 2022-11-16 14:48 | W.PM.OPN ---
Operative Note Operative Note Date of Service: 11/16/22 Narrative: PREOP DIAGNOSIS: pelvic pain, microscopic hematuria POSTOP DIAGNOSIS: pelvic pain, microscopic hematuria, PROCEDURE: CYSTOSCOPY HYDRODISTENTION BLADDER INSTILLATION Anethesia: General Surgeon: Dr. Darian Bunn Indications: Violet is a 62 year old female with complaints of pain and pressure in the bladder area. Details of procedure: The patient was brought into the operating room placed on the OR table in supine position. 2 g of Ancef IV. General anesthesia was administered. The patient was repositioned into lithotomy position, prepped and draped in the usual sterile fashion. Time-out was done per protocol. A 22 fr cystoscope was placed transurethrally into the bladder. Urine was drained from the bladder measuring 125 mL.The right and left ureteral orifices were visualized. The entire bladder was visualized. There were no suspicious bladder lesions seen. There were mild trabeculations noted. The bladder was filled with sterile water at 80 cm of water pressure under gravity. The bladder was distended for 2 minutes. Bladder capacity measured 800 mL. Revisualization of the bladder, noted no glomerulations. No Shaan ulcerations. The bladder was refilled with sterile water again at 80 cm of water pressure under gravity. The bladder was distended for 3 minutes. The fluid was drained from the bladder and measured 875 mL. The cystoscope was removed. 2% lidocaine urojet was passed transurethrally, Solution of (1% lidocaine plain, 15 mL, 0.5 % Marcaine 15 mL mixed with 30, 000 units of heparin concentration 5000 units per mL total of 6 mL hepaine) instilled transurethrally into the bladder via 16 fr red rubber catheter. The patient was brought out of anesthesia and taken to recovery in stable condition. Complications: None Drains: none
[2022-11-16 14:52] VITALS: BP 152/77; PULSE 60; RESP 16; O2SAT 100
[2022-11-16 14:57] VITALS: BP 139/73; PULSE 65; RESP 16; O2SAT 97
[2022-11-16 15:02] VITALS: BP 133/46; PULSE 65; RESP 16; TEMP 36.6; O2SAT 96
[2022-11-16 15:16] VITALS: BP 136/78; PULSE 60; RESP 16; TEMP 36.6; O2SAT 96
[2022-11-16] MEDS: Phenazopyridine HCL 200 MG TABLET PO (15:23)
== END 2022-11-16 16:00 | disposition home or self-care (01) ==
PROVIDERS: PCP Internal Medicine; Visit Provider Urology
PROC: 0T7B7ZZ Dilation of Bladder, Via Natural or Artificial Opening (ICD-10-PCS; CPT 52000; principal; 2022-11-16 10:45)
DX: R10.2 Pelvic and perineal pain (principal); R31.29 Other microscopic hematuria; N32.89 Other specified disorders of bladder; N28.1 Cyst of kidney, acquired; R39.15 Urgency of urination; N32.81 Overactive bladder; R39.9 Unspecified symptoms and signs involving the genitourinary system; E11.8 Type 2 diabetes mellitus with unspecified complications; I10 Essential (primary) hypertension; J45.909 Unspecified asthma, uncomplicated; E78.00 Pure hypercholesterolemia, unspecified; M79.7 Fibromyalgia; G47.33 Obstructive sleep apnea (adult) (pediatric); Z79.84 Long term (current) use of oral hypoglycemic drugs; Z79.1 Long term (current) use of non-steroidal anti-inflammatories (NSAID); Z79.51 Long term (current) use of inhaled steroids; Z79.82 Long term (current) use of aspirin; Z79.899 Other long term (current) drug therapy; Z88.8 Allergy status to other drugs, medicaments and biological substances; F17.210 Nicotine dependence, cigarettes, uncomplicated
CPT/HCPCS: 52000; 51700; 82947; 93005; J0690; J1100; J1643; J2405; J2795; J3010

== ENCOUNTER → 2022-11-30 12:04 | Outpatient (BNVA) | payer MEDICAID, SELFPAY | PROVIDERS: PCP Internal Medicine; Visit Provider Surgery | DX: Z31.438 Encounter for other genetic testing of female for procreative management (principal) | CPT/HCPCS: 99211 ==

== ENCOUNTER 2022-12-06 14:08 | Outpatient (AMB) | payer MEDICAID, SELFPAY ==
--- NOTE | 2022-12-06 14:13 | A.OFFVIS_ITS ---
Intake Intake Visit Reasons: S/P cysto hydrodistension Intake Note: * Patient presents today for a follow-up on S/P Cysto Hydrodistemsion. * Meds- Macrobid * Allergies to Antibiotic- None * Blood Thinner- Aspirin Ceo Ziff Davis Required: Yes Ceo Ziff Davis Language: Tajik Allergies morphine [MORPHINE] Allergy (Unknown, Verified 01/21/23 14:24) UNKNOWN HPI HPI Comments History of Present Illness Details Violet is a 62-year-old female who presents to the office s/p cystoscopy [facility]. 12/06/22-- The patient underwent the procedure on 11/16/22 for pelvic pain and microscopic hematuria. Cystoscopy findings-- bladder capacity post distention 875 milliliters. No glomerulations noted post distention. The patient states that her bladder pain has improved since the procedure She states that she has some symptoms of nausea chills and joint pain after the procedure. She thinks that she may have gotten a virus during the recovery period. She is doing much better now. She has stopped oxybutynin and Vistaril because it upsets her stomach. I discussed if her symptoms worsen she can try the Vistaril 25 mg again at bedtime. Review of chart: --09/13/2022-- Violet is a 62-year-old female who presents to the clinic for follow-up OAB and renal cysts. The patient is a Tajik speaking female. Qualified spanish interpreter was present during the visit. States having minimal improvement in OAB with Vesicare 10 mg QD and was replaced with oxybutynin 15 mg. Complains having pain in the pelvis region since 6 months. Complains pain while having a full bladder. Complains feels 'like badder dropping out.' The patient underwent cystoscopy and pelvic exam with Dr. Kovacs which is not suggestive of significant bladder prolapse or bladder lesions. It was discussed that her symptoms may be due to bladder spasms. Plan: Urine for culture was ordered. Patient education material regarding microscopic hematuria was provided to the patient. It was discussed that infection or inflammation in the bladder can cause microscopic hematuria, pelvis pain. Discussed that her symptoms are suggestive of IC, which can cause frequent urination, dysuria or pelvic pain. Consent was obtained to perform cystoscopy hydrodistention. Continue with oxybutynin 15 mg QD. Trial Antihistamine, Vistaril 25 mg qhs Office visit?07/09/2022-- by Dr Kovacs-- The patient was treated for OAB with Vesicare 10 mg QD. Renal US findings showed bilateral complex cyst. CAT scan results reviewed--05/10/2022- Suggestive of 7 mm complex cyst in the right kidney and bilateral simple cyst. There is no kidney stones. 12/06/22--Evaluation today-- Blood: 10 Alverto/uL, leukocytes: 15 Yanni/uL. Plan: Discussed to try Vistaril 25 mg QHS again if symptoms worsen. Follow-up after 6 months. [facility] Medical History Anxiety and depression Arthritis Asthma Back pain Blurring of visual image Burn scar contracture of upper arm Carpal tunnel syndrome Chronic pain Chronic sinusitis Chronic vulvovaginitis Cubital tunnel syndrome Depression Diabetes Elevated cholesterol Fibromyalgia Foot callus Foot pain GERD (gastroesophageal reflux disease) Hematuria of unknown cause Hip pain HTN (hypertension) Hyperlipidemia [place] Mood disorder MARK on CPAP Renal cyst Smoker Vascular insufficiency Surgical History H/O tubal ligation History of skin graft Hx of colonoscopy Hx of dilation and curettage S/P lumpectomy of breast (04/20/21) Family History Father No problems noted. Mother No problems noted. 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 Female Reproductive History Menstrual Age of Menarche: 14 Review of Systems Const Reports no additional complaints Eyes Reports no additional complaints ENT Reports no additional complaints Card Denies dyspnea Resp Denies cough and Denies dyspnea GI Reports no additional complaints Reports no additional complaints Musc Reports no additional complaints Skin/Breast Denies rash and Denies unusual bruising Neuro Reports no additional complaints Psych Reports no additional complaints Endo Reports no additional complaints Isma/Lymph Reports no additional complaints Aller/Immun Reports no additional complaints Physical Exam Const General: cooperative, healthy appearing and no acute distress Nutritional Appearance: overweight Orientation/consciousness: patient oriented x3 HEENT Head: Yes normal to inspection, Yes normocephalic and Yes atraumatic Eyes Conjunctivae: conjunctivae normal Neck Neck: Yes normal visual inspection and Yes trachea midline Chest Chest palpation & inspection: normal inspection of the chest Resp Effort & Inspection: normal respiratory effort Cardio Rate: regular rate GI Inspection: Yes normal to inspection Skin General skin exam: no rashes or lesions noted Neuro General: patient oriented x3 Psych Appearance: grossly normal Results AMB Urinalysis, Automated UA Leukoctes 15 Yanni/uL Last Edit by MILAGRO Booth on 12/06/22 14:37 UA Nitrite Negative Last Edit by MILAGRO Booth on 12/06/22 14:37 UA Urobilinogen 0.2 mg/dL Last Edit by MILAGRO Booth on 12/06/22 14:3 7 UA Protein 300 mg/dL Last Edit by MILAGRO Booth on 12/06/22 14:37 3+ Kurt Crowell 12/06/22 14:37 UA pH 6.0 Last Edit by MILAGRO Booth on 12/06/22 14:37 UA Blood 10 Alverto/uL Last Edit by MILAGRO Booth on 12/06/22 14:37 UA Specific [place] 1.030 Last Edit by MILAGRO Booth on 12/06/22 14: 37 UA Ketone Positive Last Edit by MILAGRO Booth on 12/06/22 14:37 5mg Kurt Crowell 12/06/22 14:37 UA Bilirubin 2 mg/dL Last Edit by MILAGRO Booth on 12/06/22 14:37 2+ Kurt Crowell 12/06/22 14:37 UA Glucose 0 mg/dL Last Edit by MILAGRO Booth on 12/06/22 14:37 Results Reviewed Results Reviewed: Laboratory Last Values Urine pH (Auto) 6.0 12/06/22 14:16 Specific [place] (Auto) 1.030 12/06/22 14:16 Urine Protein (Auto) 300 mg/dL 12/06/22 14:16 Glucose (UA)(Auto) 0 mg/dL 12/06/22 14:16 Urine Ketones (Auto) Positive 12/06/22 14:16 Urine Blood (Auto) 10 Alverto/uL 12/06/22 14:16 Urine Nitrite (Auto) Negative 12/06/22 14:16 Urine Bilirubin (Auto) 2 mg/dL 12/06/22 14:16 Urine Urobilinogen (Auto) 0.2 mg/dL 12/06/22 14:16 Leukocyte Esterase (Auto) 15 Yanni/uL 12/06/22 14:16 Assessment & Plan Assessment & Plan (1) Microscopic hematuria: Code(s): R31.29 - Other microscopic hematuria (2) Pelvic pain: Code(s): R10.2 - Pelvic and perineal pain (3) UTI symptoms: Code(s): R39.9 - Unspecified symptoms and signs involving the genitourinary system (4) Urinary urgency: Code(s): R39.15 - Urgency of urination Plan Discussed to try Vistaril 25 mg QHS again if symptoms worsen. Follow-up after 6 months. Orders: Orders AMB Urinalysis Automated 12/06/22 Z13.9 - Encounter for screening, unspecified Medications: Discontinued naproxen 500 mg PO BID PRN 10 tabs 0RF pain oxycodone-acetaminophen 5-325 mg 1 tab PO Q6H PRN 14 tabs 0RF pain (scale score 7-10) N64.52 - Nipple discharge, Z98.890 - Other specified postprocedural states ibuprofen 600 mg PO Q6H PRN 20 tabs 0RF pain Z98.890 - Other specified postprocedural states carvedilol 6.25 mg PO BID 90 days 180 tabs 1RF celecoxib 200 mg PO QAM 60 caps 3RF Patient Instructions: The patient had an opportunity to ask questions regarding treatment plan. All questions were answered. Laboratory studies and physical exam results were discussed and reviewed in detail. No major barriers to understanding were identified. The patient expressed understanding and agreement with the above treatment plan. The patient is aware they should contact our office by phone for worsening of their current condition or the appearance of new symptoms. Compliance is encouraged with any medications and followup testing that is ordered. It is a privilege to be allowed the opportunity to participate in the urologic care of your patient. If you have any questions or concerns regarding treatment for the above conditions please do not hesitate to contact me. The office tele phone contact is [phone]. This note is constructed in part using voice recognition software. While every effort has been made to ensure accuracy veterinary science teacher errors may have been included. Yours sincerely, Darian Bunn MD Coding Level of Care Code Est Pt Level 4 (85980) Diagnoses Microscopic hematuria R31.29 Pelvic pain R10.2 UTI symptoms R39.9 Urinary urgency R39.15
== END 2022-12-06 14:45 | disposition home or self-care (01) ==
PROVIDERS: PCP Internal Medicine; Visit Provider Urology
DX: R31.29 Other microscopic hematuria (principal); R10.2 Pelvic and perineal pain; R39.9 Unspecified symptoms and signs involving the genitourinary system; R39.15 Urgency of urination
CPT/HCPCS: 99214

== ENCOUNTER → 2022-12-06 14:08 | Outpatient (BNVA) | payer MEDICAID, SELFPAY | PROVIDERS: PCP Internal Medicine; Visit Provider Urology | DX: R31.29 Other microscopic hematuria (principal); R10.2 Pelvic and perineal pain; R39.9 Unspecified symptoms and signs involving the genitourinary system; R39.15 Urgency of urination | CPT/HCPCS: 99212 ==

== ENCOUNTER 2022-12-29 09:16 | Outpatient (REF) | payer MEDICAID, SELFPAY ==
[2022-12-29 11:55] LABS: TSH reflex Free T4 0.89 uIU/mL (0.32-4.0)
== END 2022-12-29 09:17 | disposition home or self-care (01) ==
LOC: HO.LAB 09:16
PROVIDERS: PCP Internal Medicine; Visit Provider Internal Medicine
DX: R53.83 Other fatigue (principal); R00.2 Palpitations
CPT/HCPCS: 36415; 84443

== ENCOUNTER 2023-01-13 11:02 | Outpatient (AMB) | payer MEDICAID, SELFPAY ==
--- NOTE | 2023-01-13 11:06 | A.OFFVIS_ITS ---
Intake Vital Signs 01/13/23 11:23 Height 5 ft 2 in Weight 213 lb BMI 39.0 BP 172/81 H Blood Pressure Location Lt brachial Position Sitting Pulse 77 Intake Visit Reasons: Gen test results *HERE* Intake Note: Patient is seen in office for genetic testing results. Patient c/o:denies any concerns or changes. Credit Risk Modeler Required: Yes Credit Risk Modeler Language: Automatic Presser Name: Hannah HUMPHREY Information Interpreted: non-clinical & clinical Facility Security Officer: Facility Security Officer Present Accompanied by: Self / Same As Patient Allergies morphine [MORPHINE] Allergy (Unknown, Verified 01/13/23 11:24) UNKNOWN Medication List - Last Reconciled 01/13/23 by Henri Flores MD albuterol sulfate 90 mcg/actuation (ProAir HFA) 2 puffs inhalation Q4-6H PRN albuterol sulfate 1 amp inhalation Q6H PRN aspirin (Adult Low Dose Aspirin) 81 mg PO DAILY atorvastatin (Lipitor) 40 mg PO BEDTIME carvedilol (Coreg) 6.25 mg PO BID celecoxib (Celebrex) 200 mg PO QAM cetirizine (Allergy Relief (cetirizine)) 10 mg PO QAM cholecalciferol (vitamin D3) (Vitamin D3) 1 cap PO QAM cyclobenzaprine 10 mg (2 x 5 mg) PO TID PRN cyclosporine 0.05% (Restasis) 1 drp ophthalmic (eye) BID docusate sodium (Colace) 1 - 2 caps PO BEDTIME PRN dulaglutide (Trulicity) 0.75 mg subcut QWEEK duloxetine (Cymbalta) 60 mg PO QAM duloxetine (Cymbalta) 30 mg PO QPM empagliflozin (Jardiance) 25 mg PO QAM fluoride (sodium) 1.1% (SF 5000 Plus) 1 appl dental BID fluticasone propionate 50 mcg/actuation (Flonase Allergy Relief) 2 sprays intranasal DAILY gabapentin (Neurontin) 600 mg PO TID glipizide 10 mg PO QAM guaifenesin 200 mg (5 mL) PO Q4H PRN hydrochlorothiazide 12.5 mg PO QAM hydroxyzine pamoate (Vistaril) 25 mg PO BEDTIME ketoconazole 2% 1 appl topical BID lancets (TRUEplus Lancets) As directed loratadine (Claritin) 10 mg PO DAILY PRN losartan 100 mg PO QAM metformin 1,000 mg PO BID naloxone 4 mg/actuation 1 spray intranasal DAILY PRN [id number]-[id number]-AH 3.5-10,000-1 mg/mL-unit/mL-% 3 drps otic (ears) QD-TID nifedipine ER 60 mg PO DAILY nitrofurantoin monohyd/m-cryst 100 mg (Macrobid) 100 mg PO BID 5 days omeprazole 20 mg PO QAM oxybutynin chloride ER 15 mg PO DAILY 30 days oxycodone-acetaminophen 5-325 mg (Endocet) 1 tab PO BID PRN phenazopyridine (Pyridium) 200 mg PO TID PRN risperidone (Risperdal) 2 mg PO BEDTIME sitagliptin phosphate (Januvia) 50 mg PO QAM HPI HPI Comments History of Present Illness Details Patient returns to discuss genetic testing performed on 11/30/2022. Her family history is significant for her mother having ovarian cancer father having prostate cancer maternal aunt with breast cancer at the age of 57 a paternal aunt with ovarian cancer the age of 43 1st cousin with prostate cancer the age of 59 a niece with pancreatic cancer at the age of 35 and a 2nd niece with thyroid cancer at the age of 47. HER0 Tyrer-Cuzick breast cancer risk calculation for her remaining lifetime was calculated at 7% placing her well below the 20% threshold. Her breast cancer risk score calculated 3%. Genetic testing revealed no clinically significant mutations identified and no variance of uncertain significance identified. A copy of the report was provided to the patient. [facility] Medical History Anxiety and depression Arthritis Asthma Back pain Blurring of visual image Burn scar contracture of upper arm Carpal tunnel syndrome Chronic pain Chronic sinusitis Chronic vulvovaginitis Cubital tunnel syndrome Depression Diabetes Elevated cholesterol Fibromyalgia Foot callus Foot pain GERD (gastroesophageal reflux disease) Hematuria of unknown cause Hip pain HTN (hypertension) Hyperlipidemia Lichen Mood disorder MARK on CPAP Renal cyst Smoker Vascular insufficiency Surgical History H/O tubal ligation History of skin graft Hx of colonoscopy Hx of dilation and curettage S/P lumpectomy of breast (04/20/21) Family History Father No problems noted. Mother No problems noted. 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 Female Reproductive History Menstrual Age of Menarche: 14 Review of Systems Const All systems reviewed & are unremarkable except as noted in HPI and below Physical Exam Vital Signs: Last Vital Signs Pulse 77 01/13/23 11:23 BP 172/81 H 01/13/23 11:23 BMI result Body Mass Index 39.0 Const General: no acute distress and well developed Nutritional Appearance: well nourished Orientation/consciousness: patient oriented x3 Limitations: no limitations Resp Effort & Inspection: normal respiratory effort Skin General skin exam: no rashes or lesions noted Neuro General: patient oriented x3 Extrem General: Yes no clubbing, cyanosis or edema Assessment & Plan Assessment & Plan (1) Family history of cancer: Code(s): Z80.9 - Family history of malignant neoplasm, unspecified Plan Patient returns today to review her genetic testing performed on 11/30/2022. Testing revealed no clinically significant mutations and no mutations of unknown significance. A copy of the report was provided to the patient. She should call for any additional questions. She should follow up as needed. Medications: Discontinued naproxen 500 mg PO BID PRN 10 tabs 0RF pain oxycodone-acetaminophen 5-325 mg 1 tab PO Q6H PRN 14 tabs 0RF pain (scale score 7-10) N64.52 - Nipple discharge, Z98.890 - Other specified postprocedural states ibuprofen 600 mg PO Q6H PRN 20 tabs 0RF pain Z98.890 - Other specified postprocedural states carvedilol 6.25 mg PO BID 90 days 180 tabs 1RF celecoxib 200 mg PO QAM 60 caps 3RF Coding Level of Care Code Est Pt Level 3 (43632) Diagnoses Family history of cancer Z80.9
[2023-01-13 11:23] VITALS: BP 172/81; PULSE 77; BMI 39.0
== END 2023-01-13 11:30 | disposition home or self-care (01) ==
PROVIDERS: PCP Internal Medicine; Referring Provider Internal Medicine; Visit Provider Surgery
DX: Z80.9 Family history of malignant neoplasm, unspecified (principal)
CPT/HCPCS: 99213

== ENCOUNTER → 2023-01-13 11:02 | Outpatient (BNVA) | payer MEDICAID, SELFPAY | PROVIDERS: PCP Internal Medicine; Referring Provider Internal Medicine; Visit Provider Surgery | DX: Z80.9 Family history of malignant neoplasm, unspecified (principal) | CPT/HCPCS: 99212 ==

== ENCOUNTER 2023-01-21 14:07 | Outpatient (AMB) | payer MEDICAID, SELFPAY ==
[2023-01-21 14:16] VITALS: BP 128/82; PULSE 68; BMI 38.3
--- NOTE | 2023-01-21 14:16 | MHC.OFFVIS ---
Intake Vital Signs 01/21/23 14:16 Height 5 ft 2 in Weight 209 lb 7.026 oz BMI 38.3 BP 128/82 Blood Pressure Location Rt brachial Position Sitting Pulse 68 Pulse Source Pulse Oximeter Intake Visit Reasons: 6 month f/u Intake Note: 6 month f/u [facility] [facility] Hospitalist Required: Yes [employer] [facility] Hospitalist Name: radhika zamarripa [id number] Allergies morphine [MORPHINE] Allergy (Unknown, Verified 01/21/23 14:24) UNKNOWN HPI 6 month f/u HPI Details Violet is a 62-year-old female past medical history of hypertension, hyperlipidemia, diabetes, obstructive sleep apnea, hypertropic cardiomyopathy, heart palpitations who presents for follow-up. Today she reports that her heart palpitations have not been as bothersome as they were in the past. She is denying any exertional discomfort in her chest. She is vague with describing her symptoms however no clear shortness of breath, presyncope, syncope, PND, orthopnea or edema. She admits to being mostly sedentary. She ambulates with a cane. Taking all meds as directed. Tells me her blood pressure is high at times and good at other times. 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 [facility] Medical History Anxiety and depression Arthritis Asthma Back pain Blurring of visual image Burn scar contracture of upper arm Carpal tunnel syndrome Chronic pain Chronic sinusitis Chronic vulvovaginitis Cubital tunnel syndrome Depression Diabetes Elevated cholesterol Fibromyalgia Foot callus Foot pain GERD (gastroesophageal reflux disease) Hematuria of unknown cause Hip pain HTN (hypertension) Hyperlipidemia Lichen Mood disorder MARK on CPAP Renal cyst Smoker Vascular insufficiency Surgical History H/O tubal ligation History of skin graft Hx of colonoscopy Hx of dilation and curettage S/P lumpectomy of breast (04/20/21) Family History Father No problems noted. Mother No problems noted. 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 Female Reproductive History Menstrual Age of Menarche: 14 Review of Systems Const All systems reviewed & are unremarkable except as noted in HPI and below ENT Denies dizziness Card Details: Mild palpitation Denies chest pain, Denies chest pain at rest, Denies chest pain with activity, Denies rapid heart rate, Denies pedal edema, Denies edema, Denies leg edema, Denies lightheadedness, Denies palpitations, Denies dyspnea, Denies dyspnea on exertion and Denies orthopnea Resp Denies cough, Denies dyspnea and Denies dyspnea on exertion GI Denies hematochezia and Denies change in stool character Musc Denies abnormal gait, Denies limited range of motion, Denies muscle cramps, Denies muscle weakness, Denies numbness, Denies radiating pain into limb, Denies stiffness and Denies tingling Neuro Denies abnormal gait, Denies dizziness, Denies numbness and Denies tingling Endo Denies palpitations Physical Exam Vital Signs: Last Vital Signs Pulse 68 01/21/23 14:16 BP 128/82 01/21/23 14:16 BMI result Body Mass Index 38.3 Const General: cooperative, comfortable and no acute distress Orientation/consciousness: patient oriented x3 Neck Neck: Yes normal visual inspection Resp Effort & Inspection: normal respiratory effort Auscultation: clear to auscultation bilaterally, no crackles, no rales, no rhonchi and no wheezes Cardio Jugular venous distension: no JVD Rate: regular rate Rhythm: regular rhythm Heart sounds: S1 normal heart sound present, S2 normal heart sound present, no murmurs and no rubs Neuro General: patient oriented x3 Extrem General: Yes normal to inspection Psych Appearance: grossly normal Mental Status: mental status grossly normal Speech and movement: Normal speech and movement present Assessment & Plan Assessment & Plan (1) Heart palpitations: Code(s): R00.2 - Palpitations Plan: Prior reports of heart palpitations, previously described as fluttering. No associated symptoms. Holter monitor done for 48 hours on 11/27/2021 showing sinus rhythm with rare PACs and PVCs, average heart rate 70, low heart rate 35 and high heart rate 135 with episodes of Wenckebach, second-degree type 1 in the early a.m. as well as intermittent junctional rhythm. Echocardiogram done 11/27/2021 showed EF 55-60%, severe septal asymmetric hypertrophy, no regional wall motion abnormality. A 30 day cardiac event monitor was ordered and she declined to wear due to fears of wearing a monitor with wires. Attempted a 7 day heart monitor however her insurance only pay for 48 hours. A repeat Holter monitor done on 05/14/2022 for 48 hours showed sinus rhythm with average heart rate 71, no pauses, rare PAC, 1 PVC. Today she reports less concern over her palpitations. No dizziness, presyncope, syncope. Admits to being mostly sedentary. Will continue to follow clinically. (2) Heart block atrioventricular: Code(s): I44.30 - Unspecified atrioventricular block Plan: As above. Noted on prior Holter. Follow-up Holter did not show anything concerning. (3) Asymmetric septal hypertrophy: Code(s): I42.2 - Other hypertrophic cardiomyopathy Plan: Finding on echocardiogram, likely related to uncontrolled hypertension. Last echo done 10/25/2022 showing EF 58%, severe focal hypertrophy of the basal septum, mild calcification the aortic valve, overall no change from 11/27/2021. Blood pressure good today. She does report elevated readings at times. I do see blood pressure 172/[address] Flores last week. She is on multiple antihypertensive agents. Overall no concerning symptoms. Will continue on current med management including hydrochlorothiazide, carvedilol, losartan and nifedipine for blood pressure control. Reviewed low-salt diet. Instructed on no heavy lifting which she confirms she does not do. (4) Essential hypertension: Code(s): I10 - Essential (primary) hypertension Plan: As above. Medications: Discontinued naproxen 500 mg PO BID PRN 10 tabs 0RF pain oxycodone-acetaminophen 5-325 mg 1 tab PO Q6H PRN 14 tabs 0RF pain (scale score 7-10) N64.52 - Nipple discharge, Z98.890 - Other specified postprocedural states ibuprofen 600 mg PO Q6H PRN 20 tabs 0RF pain Z98.890 - Other specified postprocedural states carvedilol 6.25 mg PO BID 90 days 180 tabs 1RF celecoxib 200 mg PO QAM 60 caps 3RF Coding Level of Care Code Est Pt Level 4 (84865) Diagnoses Heart palpitations R00.2 Heart block atrioventricular I44.30 Asymmetric septal hypertrophy I42.2 Essential hypertension I10 Time Spent (min) 28 Comment Chart review, documentation, interview, assessment
== END 2023-01-21 14:59 | disposition home or self-care (01) ==
PROVIDERS: PCP Internal Medicine; Referring Provider Internal Medicine; Visit Provider Nurse Practitioner Family
DX: R00.2 Palpitations (principal); I44.30 Unspecified atrioventricular block; I42.2 Other hypertrophic cardiomyopathy; I10 Essential (primary) hypertension
CPT/HCPCS: 99214

== ENCOUNTER → 2023-01-21 14:07 | Outpatient (BNVA) | payer MEDICAID, SELFPAY | PROVIDERS: PCP Internal Medicine; Referring Provider Internal Medicine; Visit Provider Nurse Practitioner Family | DX: R00.2 Palpitations (principal); I44.30 Unspecified atrioventricular block; I42.2 Other hypertrophic cardiomyopathy; I10 Essential (primary) hypertension; Z79.899 Other long term (current) drug therapy | CPT/HCPCS: 99212; 99214 ==

== ENCOUNTER 2023-03-16 14:24 | Outpatient (REF) | payer MEDICAID, SELFPAY ==
--- NOTE | ~2023-03-16 | MM_ITS ---
EXAMINATION: MM SCREENING DIGITAL BREAST TOMOSYNTHESIS, BILATERAL CLINICAL INFORMATION: Screening. Asymptomatic. The patient has a history of prior right breast surgery for benign disease. COMPARISON: Mammography: This study is compared with prior exams dating back to TECHNIQUE: Digital breast tomosynthesis is performed in both the craniocaudal and mediolateral oblique views along with computer-aided detection (CAD). Synthesized 2D images are generated from the tomosynthesis. FINDINGS: The breasts are almost entirely fatty (ACR BI-RADS breast composition Category a). There are no significant masses, abnormal calcifications, or other abnormalities. There are architectural changes in the right breast from prior surgery. These include breast deformity and benign, dystrophic calcifications. MM/MM tomosynthesis screening BI IMPRESSION: No mammographic evidence of malignancy. ASSESSMENT: BI-RADS BI-RADS 2 - Benign Findings RECOMMENDATION: Routine annual mammography screening. 1 year F/U This examination should not preclude the clinical evaluation of a suspicious palpable abnormality. This patient's information was entered into a reminder system with a target due date for their next mammogram.
== END 2023-03-16 14:25 | disposition home or self-care (01) ==
LOC: HO.MAMMO 14:24
PROVIDERS: PCP Internal Medicine; Visit Provider Internal Medicine
DX: Z12.31 Encounter for screening mammogram for malignant neoplasm of breast (principal)
CPT/HCPCS: 77063; 77067

== ENCOUNTER → 2023-03-16 15:15 | Outpatient (BNV) | payer MEDICAID, SELFPAY | PROVIDERS: PCP Internal Medicine; Visit Provider Radiology Diagnostic Radiology | DX: Z12.31 Encounter for screening mammogram for malignant neoplasm of breast (principal) | CPT/HCPCS: 77063; 77067 ==

== ENCOUNTER 2023-04-04 12:53 | Outpatient (AMB) | payer MEDICAID, SELFPAY ==
[2023-04-04 13:05] VITALS: BP 95/67; PULSE 69; BMI 38.5
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
== END 2023-04-04 14:34 | disposition home or self-care (01) ==
PROVIDERS: PCP Internal Medicine; Visit Provider Physician Assistant
DX: K59.09 Other constipation (principal); E11.9 Type 2 diabetes mellitus without complications; Z12.11 Encounter for screening for malignant neoplasm of colon; R20.8 Other disturbances of skin sensation
CPT/HCPCS: 99204

== ENCOUNTER → 2023-04-04 12:53 | Outpatient (BNVA) | payer MEDICAID, SELFPAY | PROVIDERS: PCP Internal Medicine; Visit Provider Physician Assistant | DX: Z12.11 Encounter for screening for malignant neoplasm of colon (principal); K59.09 Other constipation; R20.8 Other disturbances of skin sensation; E11.9 Type 2 diabetes mellitus without complications | CPT/HCPCS: 99212 ==

== ENCOUNTER 2023-04-18 15:59 | Outpatient (REF) | payer MEDICAID, SELFPAY ==
[2023-04-21 20:34] LABS: HPV mRNA E6/E7 rflx Not Detected (Not Detected)
== END 2023-04-18 16:00 | disposition home or self-care (01) ==
LOC: HO.HHCLNP 15:59
PROVIDERS: Visit Provider Advanced Practice Midwife
DX: Z12.4 Encounter for screening for malignant neoplasm of cervix (principal); Z11.51 Encounter for screening for human papillomavirus (HPV); R30.0 Dysuria
CPT/HCPCS: 87086; 87624; 88142

== ENCOUNTER 2023-05-23 10:55 | Outpatient (AMB) | payer MEDICAID, SELFPAY ==
--- NOTE | 2023-05-23 11:00 | A.OFFVIS_ITS ---
Intake Intake Visit Reasons: 6m follow up Intake Note: Patient presents today for a follow-up Meds- Oxybutynin & Pyridium Allergies to Antibiotic- None Blood Thinner- Aspirin Post Void Residual: 0 mL Receiving Supervisor Required: Yes Receiving Supervisor Language: Iraqi Accompanied by: Self / Same As Patient Allergies morphine [MORPHINE] Allergy (Unknown, Verified 05/23/23 11:03) UNKNOWN Medication List - Last Reconciled 05/23/23 by Darian Bunn MD albuterol sulfate 90 mcg/actuation (ProAir HFA) 2 puffs inhalation Q4-6H PRN albuterol sulfate 1 amp inhalation Q6H PRN aspirin (Adult Low Dose Aspirin) 81 mg PO DAILY atorvastatin (Lipitor) 40 mg PO BEDTIME bisacodyl (Dulcolax (bisacodyl)) 20 mg (4 x 5 mg) PO ONCE 1 day carvedilol 6.25 mg PO BID celecoxib (Celebrex) 200 mg PO QAM cetirizine (Allergy Relief (cetirizine)) 10 mg PO QAM cholecalciferol (vitamin D3) (Vitamin D3) 1 cap PO QAM cyclobenzaprine 10 mg (2 x 5 mg) PO TID PRN cyclosporine 0.05% (Restasis) 1 drp ophthalmic (eye) BID docusate sodium (Colace) 1 - 2 caps PO BEDTIME PRN dulaglutide (Trulicity) 0.75 mg subcut QWEEK duloxetine (Cymbalta) 60 mg PO QAM duloxetine (Cymbalta) 30 mg PO QPM empagliflozin (Jardiance) 25 mg PO QAM fluoride (sodium) 1.1% (SF 5000 Plus) 1 appl dental BID fluticasone propionate 50 mcg/actuation (Flonase Allergy Relief) 2 sprays intranasal DAILY gabapentin (Neurontin) 600 mg PO TID glipizide 10 mg PO QAM guaifenesin 200 mg (5 mL) PO Q4H PRN hydrochlorothiazide 12.5 mg PO QAM hydroxyzine HCl 50 mg PO BEDTIME ketoconazole 2% 1 appl topical BID lancets (TRUEplus Lancets) As directed loratadine (Claritin) 10 mg PO DAILY PRN losartan 100 mg PO QAM metformin 1,000 mg PO BID mirabegron ER (Myrbetriq) 50 mg PO DAILY naloxone 4 mg/actuation 1 spray intranasal DAILY PRN wyqlccpi-pimictyuo-FM 3.5-10,000-1 mg/mL-unit/mL-% 3 drps otic (ears) QD-TID nifedipine ER 60 mg PO DAILY omeprazole 20 mg PO QAM oxycodone-acetaminophen 5-325 mg (Endocet) 1 tab PO BID PRN phenazopyridine (Pyridium) 200 mg PO TID PRN polyethylene glycol 3350 (Miralax) 238 grams PO ONCE 1 day risperidone (Risperdal) 2 mg PO BEDTIME sitagliptin phosphate (Januvia) 50 mg PO QAM HPI HPI Comments History of Present Illness Details Violet is a 63 year old female who is here for FU for LUTS pelvic pain, urgency. The patient is a Iraqi speaking female. 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 Past Medical history Fibromyalgia, Arthritis, Asthma, Back pain, Chronic vulvovaginitis The patient underwent cystoscopy hydrodistension procedure on 11/16/22 for pelvic pain and microscopic hematuria. The patient complains of daytime urinary frequency every 2-3 hours, denies urinary incontinence, nocturia 2-3x, denies hematuria, has intermittent dysuria, feeling of incomplete bladder emptying/pressure. I have discussed avoiding dietary bladder irritants, including to cut back on caffeine usage. She states she stopped the oxybutynin 15 mg because it was not helping, was treated with vesicare in the past, she states the vistaril 25 mg is beneficial. I will increase the vistaril to 50 mg, disussed pyridium prn dysuria, Trial myrbetriq to replace oxybutynin. Review of chart: Imaging/Labs/Results-- 11/16/22 --Cysto/hydrodistention--Cystosco py findings-- bladder capacity post distention 875 milliliters. No glomerulations noted post distention. The patient stated that her bladder pain improved after the procedure 03/02/22--Renal US findings showed bilate ral complex cyst. CAT scan results reviewed--05/10/2022- Suggestive of 7 mm complex cyst in the right kidney and bilateral simple cyst. There is no kidney stones. Plan: Increase Vistaril to 50 mg QHS Myrbetriq 50 mg Follow-up after 4 months. Diet modification avoid dietary bladder irritants PFSH Medical History Chronic pain Depression Vascular insufficiency Lichen Hip pain Foot pain Foot callus Cubital tunnel syndrome Chronic vulvovaginitis Carpal tunnel syndrome Burn scar contracture of upper arm Blurring of visual image Mood disorder Hyperlipidemia Renal cyst Hematuria of unknown cause Smoker Arthritis Back pain Diabetes GERD (gastroesophageal reflux disease) Fibromyalgia Anxiety and depression MARK on CPAP Chronic sinusitis Asthma Elevated cholesterol HTN (hypertension) Surgical History S/P lumpectomy of breast (04/20/21) Hx of colonoscopy Hx of dilation and curettage H/O tubal ligation History of skin graft Family History Father No problems noted. Mother No problems noted. 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 Female Reproductive History Menstrual Age of Menarche: 14 Review of Systems Const Reports no additional complaints Eyes Reports no additional complaints ENT Reports no additional complaints Card Denies dyspnea Resp Denies cough and Denies dyspnea GI Reports no additional complaints Reports no additional complaints Musc Reports no additional complaints Skin/Breast Denies rash and Denies unusual bruising Neuro Reports no additional complaints Psych Reports no additional complaints Endo Reports no additional complaints Isma/Lymph Reports no additional complaints Aller/Immun Reports no additional complaints Results AMB Urinalysis, Automated UA Leukoctes 15 Yanni/uL Last Edit by MILAGRO Booth on 05/23/23 11:13 UA Nitrite Negative Last Edit by Kurt Croewll Lulu on 05/23/23 11:13 UA Urobilinogen 0.2 mg/dL Last Edit by Kurt Crowell [facility] on 05/23/23 11:1 3 UA Protein 100 mg/dL Last Edit by Kurt Crowell L[facility] on 05/23/23 11:13 2+ Kurt Crowell 05/23/23 11:13 UA pH 6.0 Last Edit by Kurt Crowell Lulu on 05/23/23 11:13 UA Blood 25 Alverto/uL Last Edit by Kurt Crowell [facility] on 05/23/23 11:13 1+ Kurt Crowell 05/23/23 11:13 UA Specific Eva 1.025 Last Edit by MILAGRO Booth on 05/23/23 11: 13 UA Ketone Negative Last Edit by Kurt Crowell [facility] on 05/23/23 11:13 UA Bilirubin 1 mg/dL Last Edit by Kurt Crowell Lulu on 05/23/23 11:13 UA Glucose 0 mg/dL Last Edit by Kurt Crowell [facility] on 05/23/23 11:13 Results Reviewed Results Reviewed: Laboratory Last Values Urine pH (Auto) 6.0 05/23/23 11:11 Specific Eva (Auto) 1.025 05/23/23 11:11 Urine Protein (Auto) 100 mg/dL 05/23/23 11:11 Glucose (UA)(Auto) 0 mg/dL 05/23/23 11:11 Urine Ketones (Auto) Negative 05/23/23 11:11 Urine Blood (Auto) 25 Alverto/uL 05/23/23 11:11 Urine Nitrite (Auto) Negative 05/23/23 11:11 Urine Bilirubin (Auto) 1 mg/dL 05/23/23 11:11 Urine Urobilinogen (Auto) 0.2 mg/dL 05/23/23 11:11 Leukocyte Esterase (Auto) 15 Yanni/uL 12/11/23 11:11 Assessment & Plan Assessment & Plan (1) Microscopic hematuria: Code(s): R31.29 - Other microscopic hematuria (2) Pelvic pain: Code(s): R10.2 - Pelvic and perineal pain (3) UTI symptoms: Code(s): R39.9 - Unspecified symptoms and signs involving the genitourinary system (4) Urinary urgency: Code(s): R39.15 - Urgency of urination (5) Renal cyst: Comment: bilateral Code(s): N28.1 - Cyst of kidney, acquired Plan Increase Vistaril to 50 mg QHS Myrbetriq 50 mg Follow-up after 4 months. Diet modification avoid dietary bladder irritants Orders: Orders AMB Post Void Residual by ultrasound Today N39.8 - Other specified disorders of urinary system AMB Urinalysis Automated Today Z13.9 - Encounter for screening, unspecified Medications: New hydroxyzine HCl 50 mg PO BEDTIME 90 tabs 2RF mirabegron ER (Myrbetriq) 50 mg PO DAILY 90 tabs 2RF Refilled phenazopyridine (Pyridium) 200 mg PO TID PRN 30 tabs 0RF urinary pain bladder pressure Patient Instructions: The patient had an opportunity to ask questions regarding treatment plan. All questions were answered. Imaging, Laboratory studies and physical exam results were discussed and reviewed in detail. No major barriers to understanding were identified. The patient expressed understanding and agreement with the above treatment plan. The patient is aware they should contact our office by phone for worsening of their current condition or the appearance of new symptoms. Compliance is encouraged with any medications and followup testing that is ordered. It is a privilege to be allowed the opportunity to participate in the urologic care of your patient. If you have any questions or concerns regarding treatment for the above conditions please do not hesitate to contact me. The office telephone contact is [phone]. This note is constructed in part using voice recognition software. While every effort has been made to ensure accuracy inweaver errors may have been included. Yours sincerely, Darian Bunn MD Coding Level of Care Code Est Pt Level 4 (30007) Diagnoses Microscopic hematuria R31.29 Pelvic pain R10.2 UTI symptoms R39.9 Urinary urgency R39.15 Renal cyst N28.1
== END 2023-05-23 11:55 | disposition home or self-care (01) ==
PROVIDERS: PCP Internal Medicine; Visit Provider Urology
DX: R31.29 Other microscopic hematuria (principal); R10.2 Pelvic and perineal pain; R39.9 Unspecified symptoms and signs involving the genitourinary system; R39.15 Urgency of urination; N28.1 Cyst of kidney, acquired; Z13.9 Encounter for screening, unspecified
CPT/HCPCS: 99214

== ENCOUNTER → 2023-05-23 10:55 | Outpatient (BNVA) | payer MEDICAID, SELFPAY | PROVIDERS: PCP Internal Medicine; Visit Provider Urology | DX: R31.29 Other microscopic hematuria (principal); R10.2 Pelvic and perineal pain; R39.9 Unspecified symptoms and signs involving the genitourinary system; R39.15 Urgency of urination; N28.1 Cyst of kidney, acquired | CPT/HCPCS: 81003; 99212 ==

== ENCOUNTER 2023-07-26 14:44 | Outpatient (AMB) | payer MEDICAID, SELFPAY ==
--- NOTE | 2023-07-26 14:47 | A.OFFVIS_ITS ---
Intake Vital Signs 07/26/23 14:48 Height 5 ft 2 in Weight 211 lb 10.3 oz BMI 38.7 BP 134/82 Blood Pressure Location Rt radial Position Sitting Pulse 69 Pulse Source Pulse Oximeter Intake Visit Reasons: 6 month follow up Senior Production Supervisor Required: Yes Senior Production Supervisor Language: [employer] Chair Name: radhika dougherty [id number] Allergies morphine [MORPHINE] Allergy (Unknown, Verified 07/26/23 14:49) UNKNOWN Medication List - Last Reconciled 07/26/23 by GIULIA David albuterol sulfate 90 mcg/actuation (ProAir HFA) 2 puffs inhalation Q4-6H PRN albuterol sulfate 1 amp inhalation Q6H PRN aspirin (Adult Low Dose Aspirin) 81 mg PO DAILY atorvastatin (Lipitor) 40 mg PO BEDTIME bisacodyl (Dulcolax (bisacodyl)) 20 mg (4 x 5 mg) PO ONCE 1 day carvedilol 6.25 mg PO BID celecoxib (Celebrex) 200 mg PO QAM cetirizine (Allergy Relief (cetirizine)) 10 mg PO QAM cholecalciferol (vitamin D3) (Vitamin D3) 1 cap PO QAM cyclobenzaprine 10 mg (2 x 5 mg) PO TID PRN cyclosporine 0.05% (Restasis) 1 drp ophthalmic (eye) BID docusate sodium (Colace) 1 - 2 caps PO BEDTIME PRN dulaglutide (Trulicity) 0.75 mg subcut QWEEK duloxetine (Cymbalta) 60 mg PO QAM duloxetine (Cymbalta) 30 mg PO QPM empagliflozin (Jardiance) 25 mg PO QAM fluoride (sodium) 1.1% (SF 5000 Plus) 1 appl dental BID fluticasone propionate 50 mcg/actuation (Flonase Allergy Relief) 2 sprays intranasal DAILY gabapentin (Neurontin) 600 mg PO TID glipizide 10 mg PO QAM guaifenesin 200 mg (5 mL) PO Q4H PRN hydrochlorothiazide 12.5 mg PO QAM hydroxyzine HCl 50 mg PO BEDTIME ketoconazole 2% 1 appl topical BID lancets (TRUEplus Lancets) As directed loratadine (Claritin) 10 mg PO DAILY PRN losartan 100 mg PO QAM metformin 1,000 mg PO BID mirabegron ER (Myrbetriq) 50 mg PO DAILY naloxone 4 mg/actuation 1 spray intranasal DAILY PRN fvyicqme-cdznwrbiz-TJ 3.5-10,000-1 mg/mL-unit/mL-% 3 drps otic (ears) QD-TID nifedipine ER 60 mg PO DAILY omeprazole 20 mg PO QAM oxycodone-acetaminophen 5-325 mg (Endocet) 1 tab PO BID PRN phenazopyridine (Pyridium) 200 mg PO TID PRN polyethylene glycol 3350 (Miralax) 238 grams PO ONCE 1 day risperidone (Risperdal) 2 mg PO BEDTIME sitagliptin phosphate (Januvia) 50 mg PO QAM HPI 6 month follow up HPI Details Violet is a 63-year-old female past medical history of hypertension, hyperlipidemia, diabetes, obstructive sleep apnea, hypertropic cardiomyopathy, heart palpitations who presents for follow-up. Today she reports that she occasionally feels heart palpitations however they are not concerning for her. She describes it as brief fast beating, like fluttering, decreased frequency compared to prior reports. She will also feel an occasional pinching sensation in her chest. No chest discomfort brought on by exertion. No concerning shortness of breath, lightheadedness, presyncope, syncope, PND, orthopnea or edema. She does only light physical activity. She ambulates with a cane. She reports compliance with all her medications. 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 [facility] Medical History Chronic pain Depression Vascular insufficiency Lichen Hip pain Foot pain Foot callus Cubital tunnel syndrome Chronic vulvovaginitis Carpal tunnel syndrome Burn scar contracture of upper arm Blurring of visual image Mood disorder Hyperlipidemia Renal cyst Hematuria of unknown cause Smoker Arthritis Back pain Diabetes GERD (gastroesophageal reflux disease) Fibromyalgia Anxiety and depression MARK on CPAP Chronic sinusitis Asthma Elevated cholesterol HTN (hypertension) Surgical History S/P lumpectomy of breast (04/20/21) Hx of colonoscopy Hx of dilation and curettage H/O tubal ligation History of skin graft Family History Father No problems noted. Mother No problems noted. 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 Female Reproductive History Menstrual Age of Menarche: 14 Review of Systems Const All systems reviewed & are unremarkable except as noted in HPI and below ENT Denies dizziness Card Reports chest pain, Denies chest pain at rest, Denies chest pain with activity, Reports rapid heart rate, Denies pedal edema, Denies edema, Denies leg edema, Denies lightheadedness, Reports palpitations, Denies dyspnea, Denies dyspnea on exertion and Denies orthopnea Resp Denies cough, Denies dyspnea and Denies dyspnea on exertion GI Denies hematochezia and Denies change in stool character Musc Details: Uses cane Reports abnormal gait, Denies limited range of motion, Denies muscle cramps, Denies muscle weakness, Denies numbness, Denies radiating pain into limb, Denies stiffness and Denies tingling Neuro Reports abnormal gait, Denies dizziness, Denies numbness and Denies tingling Endo Reports palpitations Physical Exam Vital Signs: Last Vital Signs Pulse 69 07/26/23 14:48 BP 134/82 07/26/23 14:48 BMI result Body Mass Index 38.7 Const General: cooperative, comfortable and no acute distress Orientation/consciousness: patient oriented x3 Neck Neck: Yes normal visual inspection Resp Effort & Inspection: normal respiratory effort Auscultation: clear to auscultation bilaterally, no crackles, no rales, no rhonchi and no wheezes Cardio Jugular venous distension: no JVD Rate: regular rate Rhythm: regular rhythm Heart sounds: S1 normal heart sound present, S2 normal heart sound present, no murmurs and no rubs Neuro General: patient oriented x3 Extrem General: Yes normal to inspection Psych Appearance: grossly normal Mental Status: mental status grossly normal Speech and movement: Normal speech and movement present Assessment & Plan Assessment & Plan (1) Heart palpitations: Code(s): R00.2 - Palpitations Plan: Prior reports of heart palpitations, previously described as fluttering. No associated symptoms. Holter monitor done for 48 hours on 11/27/2021 showing sinus rhythm with rare PACs and PVCs, average heart rate 70, low heart rate 35 and high heart rate 135 with episodes of Wenckebach, second-degree type 1 in the early a.m. as well as intermittent junctional rhythm. Echocardiogram done 11/27/2021 showed EF 55-60%, severe septal asymmetric hypertrophy, no regional wall motion abnormality. A 30 day cardiac event monitor was ordered and she declined to wear due to fears of wearing a monitor with wires. Attempted a 7 day heart monitor however her insurance only pay for 48 hours. A repeat Holter monitor done on 05/14/2022 for 48 hours showed sinus rhythm with average heart rate 71, no pauses, rare PAC, 1 PVC. Today she reports less concern over her pa lpitations. She still gets occasional brief fluttering lasting seconds. Her symptoms are most likely related to extrasystoles. Offered reassurance. She is on carvedilol for blood pressure control. Will continue without change. (2) Heart block atrioventricular: Code(s): I44.30 - Unspecified atrioventricular block Plan: As above. Noted on prior Holter. Follow-up Holter did not show anything concerning. No dizziness, presyncope, syncope. Pulse is in the normal range today. She continues on carvedilol. (3) Asymmetric septal hypertrophy: Code(s): I42.2 - Other hypertrophic cardiomyopathy Plan: Finding on echocardiogram, likely related to uncontrolled hypertension. Last echo done 10/25/2022 showing EF 58%, severe focal hypertrophy of the basal septum, mild calcification the aortic valve, overall no change from 11/27/2021. Blood pressure good today. She is on multiple antihypertensive agents. Will continue on current med management including hydrochlorothiazide, carvedilol, losartan and nifedipine for blood pressure control. Reviewed low-salt diet. Instructed on no heavy lifting which she confirms she does not do. Checking with her primary culturist to see if cardiac MRI as indicated. (4) Essential hypertension: Code(s): I10 - Essential (primary) hypertension Plan: As above. Plan Time spent on chart review, documentation, interview and assessment Coding Level of Care Code Est Pt Level 4 (04253) Diagnoses Heart palpitations R00.2 Heart block atrioventricular I44.30 Asymmetric septal hypertrophy I42.2 Essential hypertension I10 Time Spent (min) 28
[2023-07-26 14:48] VITALS: BP 134/82; PULSE 69; BMI 38.7
== END 2023-07-26 15:16 | disposition home or self-care (01) ==
PROVIDERS: PCP Internal Medicine; Visit Provider Nurse Practitioner Family
DX: R00.2 Palpitations (principal); I44.30 Unspecified atrioventricular block; I42.2 Other hypertrophic cardiomyopathy; I10 Essential (primary) hypertension
CPT/HCPCS: 99214

== ENCOUNTER → 2023-07-26 14:44 | Outpatient (BNVA) | payer MEDICAID, SELFPAY | PROVIDERS: PCP Internal Medicine; Visit Provider Nurse Practitioner Family | DX: R00.2 Palpitations (principal); I44.30 Unspecified atrioventricular block; I42.2 Other hypertrophic cardiomyopathy; I10 Essential (primary) hypertension | CPT/HCPCS: 99212 ==

== ENCOUNTER 2023-08-10 07:46 | Emergency (ER) | payer MEDICAID, SELFPAY ==
--- NOTE | 2023-08-10 08:14 | ED_ITS ---
HPI - Asthma General Chief Complaint: Dyspnea Stated Complaint: Cough Time Seen by Provider: 08/10/23 07:59 Source: patient, old records reviewed and [employer] Mode of arrival: ambulatory Limitations: no limitations History of Present Illness HPI Narrative: 63 yo female with PMH of asthma, DM, HLD, MARK, GERD, septal hypertrophy, mobitz type 1 2nd degree block here with c/o 2 days of cough, runny nose, body aches and feeling intermittent wheezes. She denies travel or sick contacts. She is vaccinated against the flu and covid complaint: asthma attack , shortness of breath and wheezing Onset (ago): day(s) (2) Severity: mild Associated symptoms: dry cough Asthma History: adult onset Treatments Prior to Arrival: inhaled bronchodilator Related Data Home Medications Medication Instructions Recorded Confirmed duloxetine 30 mg capsule,delayed 30 mg PO QPM 04/03/21 07/26/23 release (Cymbalta) duloxetine 60 mg capsule,delayed 60 mg PO QAM 04/03/21 07/26/23 release (Cymbalta) fluoride (sodium) 1.1 % dental 1 appl dental BID 04/03/21 07/26/23 cream (SF 5000 Plus) hydrochlorothiazide 12.5 mg tablet 12.5 mg PO QAM 04/03/21 07/26/23 albuterol sulfate 2.5 mg/3 mL 1 amp inhalation Q6H PRN Wheezing 04/13/21 07/26/23 (0.083 %) solution for nebulization albuterol sulfate 90 mcg/actuation 2 puff inhalation Q4-6H PRN 04/13/21 07/26/23 aerosol inhaler (ProAir HFA) Wheezing cholecalciferol (vitamin D3) 25 1 cap PO QAM 04/13/21 07/26/23 mcg (1,000 unit) capsule (Vitamin D3) cyclosporine 0.05 % eye drops in a 1 drp ophthalmic (eye) BID 04/13/21 07/26/23 dropperette (Restasis) docusate sodium 100 mg capsule 1 - 2 cap PO BEDTIME PRN 04/13/21 07/26/23 (Colace) Constipation fluticasone propionate 50 2 spray intranasal DAILY 04/13/21 07/26/23 mcg/actuation nasal spray,suspension (Flonase Allergy Relief) lancets 33 gauge (TRUEplus Lancets) #100 ea 07/09/21 07/26/23 ketoconazole 2 % shampoo 1 appl topical BID 09/22/21 07/26/23 atorvastatin 40 mg tablet (Lipitor) 40 mg PO BEDTIME 10/08/21 07/26/23 aspirin 81 mg tablet,delayed 81 mg PO DAILY 03/02/22 07/26/23 release (Adult Low Dose Aspirin) cetirizine 10 mg tablet (Allergy 10 mg PO QAM 03/02/22 07/26/23 Relief (cetirizine)) gabapentin 300 mg capsule 600 mg PO TID 03/02/22 07/26/23 (Neurontin) glipizide 10 mg tablet 10 mg PO QAM 03/02/22 07/26/23 omeprazole 20 mg capsule,delayed 20 mg PO QAM 03/02/22 07/26/23 release sitagliptin phosphate 50 mg tablet 50 mg PO QAM 03/02/22 07/26/23 (Januvia) loratadine 10 mg tablet (Claritin) 10 mg PO DAILY PRN allergies 07/06/22 07/26/23 empagliflozin 25 mg tablet 25 mg PO QAM 07/09/22 07/26/23 (Jardiance) metformin 1,000 mg tablet 1,000 mg PO BID 07/09/22 07/26/23 risperidone 2 mg tablet (Risperdal) 2 mg PO BEDTIME 07/09/22 07/26/23 celecoxib 200 mg capsule (Celebrex) 200 mg PO QAM 11/16/22 07/26/23 dulaglutide 0.75 mg/0.5 mL 0.75 mg subcut QWEEK 11/16/22 07/26/23 subcutaneous pen injector (Trulicity) [id number]-zvsuhownd-txmembeki 3.5 3 drp otic (ears) QD-TID 11/16/22 07/26/23 mg/mL-10,000 unit/mL-1 % ear solution losartan 100 mg tablet 100 mg PO QAM 12/27/22 07/26/23 naloxone 4 mg/actuation nasal spray 1 spray intranasal DAILY PRN 12/27/22 07/26/23 Opioid Overdose nifedipine 60 mg tablet,extended 60 mg PO DAILY 12/27/22 07/26/23 release 24 hr oxycodone-acetaminophen 5 mg-325 1 tab PO BID PRN pain (scale score 12/27/22 07/26/23 mg tablet (Endocet) 7-10) Previous Rx's Medication Instructions Recorded cyclobenzaprine 5 mg tablet 10 mg (2 x 5 mg) PO TID PRN muscle 10/02/20 spasm #10 tabs guaifenesin 200 mg/5 mL oral liquid 200 mg (5 mL) PO Q4H PRN cough 11/29/21 #118 mL bisacodyl 5 mg tablet,delayed 20 mg (4 x 5 mg) PO ONCE 04/04/23 release (Dulcolax (bisacodyl)) colonoscopy prep 1 day #4 tabs polyethylene glycol 3350 17 238 g PO ONCE laxative effect 1 04/04/23 gram/dose oral powder (Miralax) day #238 grams hydroxyzine HCl 50 mg tablet 50 mg PO BEDTIME #90 tabs 05/23/23 mirabegron 50 mg tablet,extended 50 mg PO DAILY #90 tabs 05/23/23 release 24 hr (Myrbetriq) phenazopyridine 200 mg tablet 200 mg PO TID PRN urinary pain 05/23/23 (Pyridium) bladder pressure #30 tabs carvedilol 6.25 mg tablet 6.25 mg PO BID #180 tabs 07/20/23 azithromycin 250 mg tablet See Rx Instructions PO .COMPLEX #6 08/10/23 tabs guaifenesin 100 mg/5 mL oral liquid 200 mg (10 mL) PO Q4H PRN 08/10/23 congestion #473 mL Allergies Allergy/AdvReac Type Severity Reaction Status Date / Time morphine [MORPHINE] Allergy Unknown UNKNOWN Verified 08/10/23 08:39 Review of Systems Review of Systems: Constitutional : No Fever, No Chills ENT/Mouth : No Hoarseness, pos sore throat, pos Rhinorrhea Eyes: No Redness, No Discharge, No Vision Changes Cardiovascular : No Chest Pain, positive SOB, positive Dyspnea on Exertion, No Edema Respiratory : positive Cough, No Sputum, positive Wheezing, Gastrointestinal : No Nausea, No Vomiting, No Diarrhea, No abdominal Pain Genitourinary : No Dysuria, No Hematuria Musculoskeletal : No joint pain, pos Myalgias Skin : No rash Neuro : No Weakness, No Numbness, No Headache Psych : No anxiety, depression All other systems reviewed and are negative PMFSH Past Medical History Attestation statement: The following information was validated with the patient. Source: old records reviewed Medical History Chronic pain Depression Vascular insufficiency Lichen Hip pain Foot pain Foot callus Cubital tunnel syndrome Chronic vulvovaginitis Carpal tunnel syndrome Burn scar contracture of upper arm Blurring of visual image Mood disorder Hyperlipidemia Renal cyst Hematuria of unknown cause Smoker Arthritis Back pain Diabetes GERD (gastroesophageal reflux disease) Fibromyalgia Anxiety and depression MARK on CPAP Chronic sinusitis Asthma Elevated cholesterol HTN (hypertension) Surgical History S/P lumpectomy of breast (04/20/21) Hx of colonoscopy Hx of dilation and curettage H/O tubal ligation History of skin graft Family History Family History Father No problems noted. Mother No problems noted. 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 Oriented X3. No acute distress. Eyes: Pupils equal, round and reactive to light. ENT: Pharynx normal. no erythema no exudates, TM noted bilaterally, no purulence from either nares Neck: Normal inspection. Neck supple. CVS: Normal heart rate and rhythm. Pulses normal. Respiratory: No respiratory distress. Breath sounds diffuse mild end exp wheezes Abdomen: Soft and nontender. Skin: Skin warm and dry. Normal skin color. Normal skin turgor. Extremities: No lower extremity edema. No calf ttp Neuro: Oriented X 3. No motor deficit. No sensory deficit. Course Course Course Narrative: no wheezing or hypoxia but has dry cough now - medications ordered. Medications Administered Discontinued Medications Generic Name Dose Route Start Last Admin Trade Name Freq PRN Reason Stop Dose Admin Benzonatate 200 mg 08/10/23 09:44 08/10/23 09:54 Benzonatate 100 Mg Capsule PO 08/10/23 09:45 200 mg ONCE ONE Administration Albuterol Sulfate 2.5 mg/ 0 mg 08/10/23 08:16 08/10/23 08:19 Albuterol/Ipratropium 3 ml INHALE 08/10/23 08:17 1 dose ONCE ONE Administration Albuterol Sulfate 2.5 mg/ 0 mg 08/10/23 09:04 08/10/23 09:06 Albuterol/Ipratropium 3 ml INHALE 08/10/23 09:05 1 dose ONCE ONE Administration Dexamethasone 10 mg 08/10/23 08:09 08/10/23 08:46 Dexamethasone 2 Mg Tablet PO 08/10/23 08:10 10 mg ONCE ONE Administration Guaifenesin 5 ml 08/10/23 09:45 08/10/23 09:54 Guaifenesin 100 Mg/5 Ml Liquid PO 08/10/23 09:46 5 ml ONCE ONE Administration Medical Decision Making Medical Decision Making [facility] Narrative: 63 yo female with PMH of asthma, DM, HLD, MARK, GERD, septal hypertrophy, mobitz type 1 2nd degree block here with c/o URI symptoms exacerbating her asthma at this time viral panel, PO dexamethasone, bronchodilator protocol ordered, suspect URI - viral exacerbating her asthma at this time Differential Diagnosis Differential Diagnoses: The differential diagnosis associated with the presentation includes flu, covid, rsv, bronchitis, asthma Admission/Observation Consideration of admission/observation: Escalation of care including admission/observation considered no hypoxia improved stable for DC Lab Data [facility] Lab Attestation statement: I reviewed the patient's lab results. Labs: Lab Results 08/10/23 Range/Units 08:21 Influenza Type A (PCR) NEGATIVE (Negative) Influenza Type B (PCR) NEGATIVE (Negative) RSV RNA Qual (PCR) NEGATIVE (Negative) SARS-CoV-2 RNA (RT-PCR) NEGATIVE (Negative) External Record Review External record reviewed: Inpatient record and Office record Prescription Management I considered prescription management with: Antiviral, Antibiotic and Other Chronic Conditions Patient?s care impacted by: Diabetes Discharge Plan Discharge Clinical Impression: Bronchitis Asthma exacerbation Qualifiers: Asthma severity: moderate Asthma persistence: persistent Qualified Code(s): J45.41 - Moderate persistent asthma with (acute) exacerbation Patient Disposition: Home, Self-Care Instructions: Asthma (ED), Acute Bronchitis (ED) Additional Instructions: NEGATIVE FLU COVID RSV return for worsening symptoms, low oxygen saturation, vomiting, inability to breathe or any other concerns, continue your inhalers and neb treatments Regrese si los s?ntomas empeoran, baja saturaci?n de ox?santos, v?mitos, incapacidad para respirar o cualquier otra inquietud, contin?e con luis daniel inhaladores y tratamientos nebulizadores. Prescriptions: New azithromycin 250 mg tablet See Rx Instructions .ROUTE .COMPLEX Qty: 6 0RF Rx Instructions: For 250 mg dose pack: take 500 mg today (day 1), then 250 mg for 4 days (days 2-5) guaifenesin 100 mg/5 mL liquid 200 mg PO Q4H PRN (Reason: congestion) Qty: 473 0RF No Action carvedilol 6.25 mg tablet 6.25 mg PO BID Qty: 180 3RF cyclobenzaprine 5 mg tablet 10 mg PO TID PRN (Reason: muscle spasm) Qty: 10 0RF albuterol sulfate 2.5 mg /3 mL (0.083 %) solution for nebulization 1 amp inhalation Q6H PRN (Reason: Wheezing) docusate sodium [Colace] 100 mg capsule 1 - 2 cap PO BEDTIME PRN (Reason: Constipation) albuterol sulfate [ProAir HFA] 90 mcg/actuation HFA aerosol inhaler 2 puff inhalation Q4-6H PRN (Reason: Wheezing) fluticasone propionate [Flonase Allergy Relief] 50 mcg/actuation spray,suspension 2 spray intranasal DAILY cholecalciferol (vitamin D3) [Vitamin D3] 25 mcg (1,000 unit) capsule 1 cap PO QAM cyclosporine [Restasis] 0.05 % dropperette 1 drp ophthalmic (eye) BID atorvastatin [Lipitor] 40 mg tablet 40 mg PO BEDTIME aspirin [Adult Low Dose Aspirin] 81 mg tablet,delayed release (DR/EC) 81 mg PO DAILY cetirizine [Allergy Relief (cetirizine)] 10 mg tablet 10 mg PO QAM gabapentin [Neurontin] 300 mg capsule 600 mg PO TID glipizide 10 mg tablet 10 mg PO QAM omeprazole 20 mg capsule,delayed release(DR/EC) 20 mg PO QAM Januvia 50 mg tablet 50 mg PO QAM loratadine [Claritin] 10 mg tablet 10 mg PO DAILY PRN (Reason: allergies) guaifenesin 200 mg/5 mL liquid 200 mg PO Q4H PRN (Reason: cough) Qty: 118 0RF celecoxib [Celebrex] 200 mg capsule 200 mg PO QAM [id number]-CW 3.5-10,000-1 mg/mL-unit/mL-% solution 3 drp otic (ears) QD-TID Trulicity 0.75 mg/0.5 mL pen injector 0.75 mg subcut QWEEK nifedipine 60 mg tablet extended release 24hr 60 mg PO DAILY losartan 100 mg tablet 100 mg PO QAM naloxone 4 mg/actuation spray,non-aerosol 1 spray intranasal DAILY PRN (Reason: Opioid Overdose) oxycodone-acetaminophen [Endocet] 5-325 mg tablet 1 tab PO BID PRN (Reason: pain (scale score 7-10)) (DME) lancets [TRUEplus Lancets] 33 gauge misc See Rx Instructions Not Applicable BID Qty: 100 Rx Instructions: As directed duloxetine [Cymbalta] 30 mg capsule,delayed release(DR/EC) 30 mg PO QPM duloxetine [Cymbalta] 60 mg capsule,delayed release(DR/EC) 60 mg PO QAM fluoride (sodium) [SF 5000 Plus] 1.1 % cream 1 appl dental BID hydrochlorothiazide 12.5 mg tablet 12.5 mg PO QAM ketoconazole 2 % shampoo 1 appl topical BID risperidone [Risperdal] 2 mg tablet 2 mg PO BEDTIME metformin 1,000 mg tablet 1,000 mg PO BID Jardiance 25 mg tablet 25 mg PO QAM Myrbetriq 50 mg tablet extended release 24 hr 50 mg PO DAILY Qty: 90 2RF phenazopyridine [Pyridium] 200 mg tablet 200 mg PO TID PRN (Reason: urinary pain bladder pressure) Qty: 30 0RF hydroxyzine HCl 50 mg tablet 50 mg PO BEDTIME Qty: 90 2RF bisacodyl [Dulcolax (bisacodyl)] 5 mg tablet,delayed release (DR/EC) 20 mg PO ONCE 1 Days Qty: 4 0RF Rx Instructions: Day before procedure, prep day Take 4 tablets by mouth upon awakening followed by large glass of water polyethylene glycol 3350 [Miralax] 17 gram/dose powder 238 g PO ONCE 1 Days Qty: 238 0RF Rx Instructions: Take as directed by mouth the day before your procedure. Print Language: Polish
[2023-08-10 08:19] VITALS: PULSE 65; RESP 22; O2SAT 100
[2023-08-10] MEDS: Albuterol Sulfate 2.5 MG, Albuterol/Iprat 2.5/0.5MG 3 ML 3 ML INHALE ×2 (08:19→09:06)
[2023-08-10 08:39] VITALS: BP 177/79; PULSE 71; RESP 20; TEMP 36.6; O2SAT 100; BMI 38.4
[2023-08-10] MEDS: dexAMETHasone 2 MG TABLET 10 MG PO (08:46)
[2023-08-10 09:06] VITALS: PULSE 71; RESP 20; O2SAT 100
[2023-08-10 09:44] LABS: Influenza A PCR NEGATIVE (Negative); Influenza B PCR NEGATIVE (Negative); Resp Syncy Virus RNA Qual PCR NEGATIVE (Negative); SARS COV2 PCR INHOUSE NEGATIVE (Negative)
[2023-08-10] MEDS: guaiFENesin 100 MG/5 ML LIQUID PO (09:54)
[2023-08-10] MEDS: Benzonatate 100 MG CAPSULE 200 MG PO (09:54)
[2023-08-10 10:09] VITALS: BP 145/72; PULSE 70; RESP 16; TEMP 36.6; O2SAT 99
== END 2023-08-10 10:40 | disposition home or self-care (01) ==
PROVIDERS: Emergency Provider Emergency Medicine; PCP Internal Medicine
DX: J45.41 Moderate persistent asthma with (acute) exacerbation (principal); E11.9 Type 2 diabetes mellitus without complications; I44.1 Atrioventricular block, second degree; G47.33 Obstructive sleep apnea (adult) (pediatric); Z11.52 Encounter for screening for COVID-19; Z20.828 Contact with and (suspected) exposure to other viral communicable diseases
CPT/HCPCS: 0241U; 94640; 99284; J8540

== ENCOUNTER 2023-09-22 13:35 | Outpatient (AMB) | payer MEDICAID, SELFPAY ==
--- NOTE | 2023-09-22 13:53 | A.OFFVIS_ITS ---
Intake Intake Visit Reasons: 4m follow up Intake Note: Patient presents today for a follow-up Meds- Oxybutynin & Pyridium Allergies to Antibiotic- None Blood Thinner- Aspirin Post Void Residual: 79mL Quarry Supervisor Required: Yes Quarry Supervisor Language: Inventory Accountant Name: Kurt Crowell, MILAGRO/NIRAJ Fernández Information Interpreted: non-clinical & clinical Accompanied by: Self / Same As Patient Allergies morphine [MORPHINE] Allergy (Unknown, Verified 08/10/23 08:39) UNKNOWN Medication List - Last Reconciled 09/22/23 by Darian Bunn MD albuterol sulfate 90 mcg/actuation (ProAir HFA) 2 puffs inhalation Q4-6H PRN albuterol sulfate 1 amp inhalation Q6H PRN aspirin (Adult Low Dose Aspirin) 81 mg PO DAILY atorvastatin (Lipitor) 40 mg PO BEDTIME bisacodyl (Dulcolax (bisacodyl)) 20 mg (4 x 5 mg) PO ONCE 1 day carvedilol 6.25 mg PO BID celecoxib (Celebrex) 200 mg PO QAM cetirizine (Allergy Relief (cetirizine)) 10 mg PO QAM cholecalciferol (vitamin D3) (Vitamin D3) 1 cap PO QAM cyclobenzaprine 10 mg (2 x 5 mg) PO TID PRN cyclosporine 0.05% (Restasis) 1 drp ophthalmic (eye) BID docusate sodium (Colace) 1 - 2 caps PO BEDTIME PRN dulaglutide (Trulicity) 0.75 mg subcut QWEEK duloxetine (Cymbalta) 60 mg PO QAM duloxetine (Cymbalta) 30 mg PO QPM empagliflozin (Jardiance) 25 mg PO QAM fluoride (sodium) 1.1% (SF 5000 Plus) 1 appl dental BID fluticasone propionate 50 mcg/actuation (Flonase Allergy Relief) 2 sprays intr anasal DAILY gabapentin (Neurontin) 600 mg PO TID glipizide 10 mg PO QAM guaifenesin 200 mg (10 mL) PO Q4H PRN hydrochlorothiazide 12.5 mg PO QAM hydroxyzine HCl 50 mg PO BEDTIME ketoconazole 2% 1 appl topical BID lancets (TRUEplus Lancets) As directed loratadine (Claritin) 10 mg PO DAILY PRN losartan 100 mg PO QAM metformin 1,000 mg PO BID mirabegron ER (Myrbetriq) 50 mg PO DAILY naloxone 4 mg/actuation 1 spray intranasal DAILY PRN [id number] 3.5-10,000-1 mg/mL-unit/mL-% 3 drps otic (ears) QD-TID nifedipine ER 60 mg PO DAILY omeprazole 20 mg PO QAM oxycodone-acetaminophen 5-325 mg (Endocet) 1 tab PO BID PRN phenazopyridine (Pyridium) 200 mg PO TID PRN polyethylene glycol 3350 (Miralax) 238 grams PO ONCE 1 day risperidone (Risperdal) 2 mg PO BEDTIME sitagliptin phosphate (Januvia) 50 mg PO QAM HPI HPI Comments 2 History of Present Illness Details 09/22/23--Violet is a 63 year old fem swetha who is here for FU for LUTS pelvic pain, urgency. The patient is a Thai speaking female. Certified break up worker was present during the visit. Past Medical history Fibromyalgia, Arthritis, Asthma, Back pain, Chronic vulvovaginitis. She had previous cystoscopy hydrodistention 11/16/22, she is prescribed Vistaril 50 mg at bedtime and Myrbetriq 50 mg q.a.m.. She states that she will occasionally still get flare-ups of bladder pressure. I have reviewed the importance of avoiding dietary bladder irritants. Urinalysis 1+ trace protein, Blood 25 Alverto, leuk - trace; bladder scan PVR 79 mL Plan continue Vistaril 50 mg and Myrbetriq 50 mg, IC diet. follow-up in 6 months Review of chart: 05/23/2023-- Violet is a 63 year old female who is here for FU for LUTS pelvic pain, urgency. The patient is a Thai speaking female. Certified break up worker was present during the visit. Past Medical history Fibromyalgia, Arthritis, Asthma, Back pain, Chronic vulvovaginitis The patient underwent cystoscopy hydrodistension procedure on 11/16/22 for pelvic pain and microscopic hematuria. The patient complains of daytime urinary frequency every 2-3 hours, denies urinary incontinence, nocturia 2-3x, denies hematuria, has intermittent dysuria, feeling of incomplete bladder emptying/pressure. I have discussed avoiding dietary bladder irritants, including to cut back on caffeine usage. She states she stopped the oxybutynin 15 mg because it was not helping, was treated with vesicare in the past, she states the vistaril 25 mg is beneficial. I will increase the vistaril to 50 mg, disussed pyridium prn dysuria, Trial myrbetriq to replace oxybutynin. Review of chart: Imaging/Labs/Results-- 11/16/22 --Cysto/hydrodistention--Cystosco py findings-- bladder capacity post distention 875 milliliters. No glomerulations noted post distention. The patient stated that her bladder pain improved after the procedure 03/02/22--Renal US findings showed bilate ral complex cyst. CAT scan results reviewed--05/10/2022- Suggestive of 7 mm complex cyst in the right kidney and bilateral simple cyst. There is no kidney stones. 09/22/23--Plan: Vistaril to 50 mg QHS Myrbetriq 50 mg Follow-up after 6 months. Diet modification avoid dietary bladder irritants PFSH Medical History Asymmetric septal hypertrophy Heart block atrioventricular Chronic pain Depression Vascular insufficiency Lichen Hip pain Foot pain Foot callus Cubital tunnel syndrome Chronic vulvovaginitis Carpal tunnel syndrome Burn scar contracture of upper arm Blurring of visual image Mood disorder Hyperlipidemia Renal cyst Hematuria of unknown cause Smoker Arthritis Back pain Diabetes GERD (gastroesophageal reflux disease) Fibromyalgia Anxiety and depression MARK on CPAP Chronic sinusitis Asthma Elevated cholesterol HTN (hypertension) Surgical History Hx of cystoscopy S/P lumpectomy of breast (04/20/21) Hx of colonoscopy Hx of dilation and curettage H/O tubal ligation History of skin graft Family History Father No problems noted. Mother No problems noted. 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 Female Reproductive History Menstrual Age of Menarche: 14 Review of Systems Const All systems reviewed & are unremarkable except as noted in HPI and below Reports no additional complaints Eyes Reports no additional complaints ENT Reports no additional complaints Card Reports no additional complaints Resp Reports no additional complaints GI Reports no additional complaints Reports as per HPI Musc Reports no additional complaints Skin/Breast Reports system reviewed and no additional complaints, except as documented Neuro Reports no additional complaints Psych Reports no additional complaints Endo Reports no additional complaints Isma/Lymph Reports no additional complaints Aller/Immun Reports no additional complaints Office Procedures Post Void Residual Post Residual Void Post Void Residual (PVR): [id number] Void Residual by ultrasound Results AMB Urinalysis, Automated UA Leukoctes 0 Yanni/uL Last Edit by MILAGRO Booth on 09/22/23 14:20 UA Nitrite Negative Last Edit by MILAGRO Booth on 09/22/23 14:20 UA Urobilinogen 0.2 mg/dL Last Edit by MILAGRO Booth on 09/22/23 14:2 0 UA Protein 15 mg/dL Last Edit by MILAGRO Booth on 09/22/23 14:20 UA pH 5.5 Last Edit by MILAGRO Booth on 09/22/23 14:20 UA Blood 25 Alverto/uL Last Edit by MILAGRO Booth on 09/22/23 14:20 UA Specific [place] 1.015 Last Edit by MILAGRO Booth on 09/22/23 14: 20 UA Ketone Negative Last Edit by MILAGRO Booth on 09/22/23 14:20 UA Bilirubin 0 mg/dL Last Edit by MILAGRO Booth on 09/22/23 14:20 UA Glucose 0 mg/dL Last Edit by MILAGRO Booth on 09/22/23 14:20 Results Reviewed Results Reviewed: Laboratory Last Values Urine pH (Auto) 5.5 09/22/23 14:18 Specific [place] (Auto) 1.015 09/22/23 14:18 Urine Protein (Auto) 15 mg/dL 09/22/23 14:18 Glucose (UA)(Auto) 0 mg/dL 09/22/23 14:18 Urine Ketones (Auto) Negative 09/22/23 14:18 Urine Blood (Auto) 25 Alverto/uL 09/22/23 14:18 Urine Nitrite (Auto) Negative 09/22/23 14:18 Urine Bilirubin (Auto) 0 mg/dL 09/22/23 14:18 Urine Urobilinogen (Auto) 0.2 mg/dL 09/22/23 14:18 Leukocyte Esterase (Auto) 0 Yanni/uL 09/22/23 14:18 Date of Service: 05/10/22 EXAMINATION: CT ABDOMEN WITHOUT AND WITH CONTRAST CLINICAL INFORMATION: Microscopic hematuria? COMPARISON: Previous CT of the abdomen and pelvis February 2021 and previous renal ultrasound February 2022 and pelvic ultrasound December 2021? TECHNIQUE: Contiguous axial thin section helical images of the abdomen were performed before and after the administration of oral contrast and? 85 mL of Omnipaque 350 intravenous contrast. The data set was reformatted in the coronal and sagittal planes and reviewed on an independent workstation. This CT examination was performed using dose optimization techniques as appropriate, variously including the following: *Automated exposure control *Adjustment of mA and/or kV according to patient size (this includes techniques or standardized protocols for targeted exams where dose is matched to indication/reason for exam; i.e. extremities or head) *Use of iterative reconstruction technique DLP: 894 mGy-cm FINDINGS: LUNG BASES: Normal? LIVER, GALLBLADDER, AND BILIARY TREE: Normal? PANCREAS: Normal? SPLEEN: Normal? ADRENAL GLANDS AND KIDNEYS: Stable 1.5 x 2.2 cm low-attenuation left adrenal lesion probably representing a benign neuroma. Normal right adrenal gland. Innumerable small less than 1 cm renal cysts. Small 7 mm lesion exophytic to the lateral midpole of right kidney probably representing a complex cyst axial image 49 series 4 and medial upper pole left kidney probably representing a complex cyst, axial image 49 series 4 on the right and 41 series 4 on the left. Similar appearing to February 2021 exam. No stone or hydronephrosis. BOWEL LOOPS: Diverticulosis of the colon. Visualized small and large bowel is otherwise normal. Normal appendix. Normal stomach.? LYMPH NODES: Normal. VASCULAR: Unremarkable. BONES: Degenerative changes of the spine.? IMPRESSION: Multiple small bilateral renal cysts. 7 mm complex cyst exophytic to the lateral mid pole right kidney and exophytic to the medial upper pole of the left kidney. The remainder of the cysts probably represent simple cysts cysts. Stable low-attenuation left adrenal lesion probably representing a benign. Diverticulosis of the colon.? ? Fleischner guidelines were followed. Assessment & Plan Assessment & Plan (1) Microscopic hematuria: Code(s): R31.29 - Other microscopic hematuria (2) Pelvic pain: Code(s): R10.2 - Pelvic and perineal pain (3) UTI symptoms: Code(s): R39.9 - Unspecified symptoms and signs involving the genitourinary system (4) Urinary urgency: Code(s): R39.15 - Urgency of urination (5) Renal cyst: Comment: bilateral Code(s): N28.1 - Cyst of kidney, acquired Plan Vistaril to 50 mg QHS Myrbetriq 50 mg Follow-up after 6 months. Diet modification avoid dietary bladder irritants Orders: Orders AMB Urinalysis Automated Today Z13.9 - Encounter for screening, unspecified AMB Post Void Residual by ultrasound Today N39.8 - Other specified disorders of urinary system Medications: Refilled hydroxyzine HCl 50 mg PO BEDTIME 90 tabs 2RF mirabegron ER (Myrbetriq) 50 mg PO DAILY 90 tabs 2RF Patient Instructions: The patient had an opportunity to ask questions regarding treatment plan. All questions were answered. Imaging, Laboratory studies and physical exam results were discussed and reviewed in detail. No major barriers to understanding were identified. The patient expressed understanding and agreement with the above treatment plan. The patient is aware they should contact our office by phone for worsening of their current condition or the appearance of new symptoms. Compliance is encouraged with any medications and followup testing that is ordered. It is a privilege to be allowed the opportunity to participate in the urologic care of your patient. If you have any questions or concerns regarding treatment for the above conditions please do not hesitate to contact me. The office telephone contact is [phone]. This note is constructed in part using voice recognition software. While every effort has been made to ensure accuracy developmental mathematics instructor errors may have been included. Yours sincerely, Darian Bunn MD Coding Level of Care Code Est Pt Level 4 (97211) Diagnoses Microscopic hematuria R31.29 Pelvic pain R10.2 UTI symptoms R39.9 Urinary urgency R39.15 Renal cyst N28.1 CPT Codes Post Residual Void - PVR CPT Code: 90288-Gaam Void Residual by ultrasound ([id number])
== END 2023-09-22 14:31 | disposition home or self-care (01) ==
PROVIDERS: PCP Internal Medicine; Referring Provider Internal Medicine; Visit Provider Urology
DX: R31.29 Other microscopic hematuria (principal); R10.2 Pelvic and perineal pain; R39.9 Unspecified symptoms and signs involving the genitourinary system; R39.15 Urgency of urination; N28.1 Cyst of kidney, acquired; Z13.9 Encounter for screening, unspecified
CPT/HCPCS: 99214

== ENCOUNTER → 2023-09-22 13:35 | Outpatient (BNVA) | payer MEDICAID, SELFPAY | PROVIDERS: PCP Internal Medicine; Visit Provider Urology | DX: N28.1 Cyst of kidney, acquired (principal); R39.15 Urgency of urination; R31.29 Other microscopic hematuria; R39.9 Unspecified symptoms and signs involving the genitourinary system; R10.2 Pelvic and perineal pain; Z79.82 Long term (current) use of aspirin; Z79.899 Other long term (current) drug therapy | CPT/HCPCS: 51798; 81003; 99212 ==

== ENCOUNTER → 2023-09-27 12:00 | Outpatient (BNV) | payer MEDICAID, SELFPAY | PROVIDERS: PCP Internal Medicine; Visit Provider Internal Medicine | DX: Z12.11 Encounter for screening for malignant neoplasm of colon (principal); D12.3 Benign neoplasm of transverse colon; K64.8 Other hemorrhoids; K57.30 Diverticulosis of large intestine without perforation or abscess without bleeding; Z91.198 Patient's noncompliance with other medical treatment and regimen for other reason | CPT/HCPCS: 45385 ==

== ENCOUNTER 2023-09-27 14:23 | Day surgery (SDC) | payer MEDICAID, SELFPAY ==
[2023-09-22 09:26] VITALS: BMI 38.7
--- NOTE | 2023-09-27 10:49 | HO.ANESPROP2 ---
PMFSH Active Problems Active Problems: aAll Active Problems Skin pain (Acute) Encounter for screening colonoscopy (Acute) Chronic constipation (Acute) Family history of cancer (Acute) Anal fissure (Acute) Papule of skin (Acute) Urinary urgency (Acute) UTI symptoms (Acute) Pelvic pain (Acute) Overactive bladder (Acute) Microscopic hematuria (Acute) Complex renal cyst (Acute) Heart block atrioventricular (Acute) Asymmetric septal hypertrophy (Acute) Essential hypertension (Acute) Heart palpitations (Acute) UTI (urinary tract infection) (Acute) Vulvovaginitis (Acute) Trochanteric bursitis of right hip (Acute) Breast pain, right (Acute) Nipple discharge (Acute) Late latent syphilis (Acute) Herpes genitalia (Acute) Microscopic hematuria (Acute) Female pelvic pain (Acute) Vulvar ulcer (Acute) Left forearm pain (Acute) Left wrist pain (Acute) Left hand pain (Acute) wDiabetes (Acute) Renal cyst (Acute) Hematuria of unknown cause (Acute) S/P lumpectomy of breast (Acute 04/20/21) Past Medical History Medical History Asymmetric septal hypertrophy Heart block atrioventricular Chronic pain Depression Vascular insufficiency Lichen Hip pain Foot pain Foot callus Cubital tunnel syndrome Chronic vulvovaginitis Carpal tunnel syndrome Burn scar contracture of upper arm Blurring of visual image Mood disorder Hyperlipidemia Renal cyst Hematuria of unknown cause Smoker Arthritis Back pain Diabetes GERD (gastroesophageal reflux disease) Fibromyalgia Anxiety and depression MARK on CPAP Chronic sinusitis Asthma Elevated cholesterol HTN (hypertension) Family History Family History Father No problems noted. Mother No problems noted. Maternal Aunt Breast cancer Surgical History Surgical History Hx of cystoscopy S/P lumpectomy of breast (04/20/21) Hx of colonoscopy Hx of dilation and curettage H/O tubal ligation History of skin graft History of Problems with Anesthesia: No Social History Social History Household Members Other:: Friend Are you a primary skin care instructor to a significant other at home: No Do you presently have visiting nurse or other home services: Yes (Friend helps take care of her) Alcohol intake: never Patient Tobacco Use Status: Current everyday Tobacco user Tobacco use type: Cigarette Cigarette Packs Per Day: 0.25 Cigarettes Per Day: 6 Years Smoked: 30 Current occupational status: disabled 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 Meds Allergies Allergy/AdvReac Type Severity Reaction Status Date / Time morphine [MORPHINE] Allergy Unknown UNKNOWN Verified 08/10/23 08:39 Home Medications ?Medication ?Instructions ?Recorded ?Confirmed ?Last Taken ?Type duloxetine 30 mg capsule,delayed 30 mg PO QPM 04/03/21 09/22/23 11/16/22 08:15 History release (Cymbalta) duloxetine 60 mg capsule,delayed 60 mg PO QAM 04/03/21 09/22/23 11/16/22 08:15 History release (Cymbalta) fluoride (sodium) 1.1 % dental 1 appl dental BID 04/03/21 09/22/23 Unknown History cream (SF 5000 Plus) hydrochlorothiazide 12.5 mg tablet 12.5 mg PO QAM 04/03/21 09/22/23 Unknown History albuterol sulfate 2.5 mg/3 mL 1 amp inhalation Q6H PRN Wheezing 04/13/21 09/22/23 Unknown History (0.083 %) solution for nebulization albuterol sulfate 90 mcg/actuation 2 puff inhalation Q4-6H PRN 04/13/21 09/22/23 04/20/21 08:30 History aerosol inhaler (ProAir HFA) Wheezing cholecalciferol (vitamin D3) 25 1 cap PO QAM 04/13/21 09/22/23 Unknown History mcg (1,000 unit) capsule (Vitamin D3) cyclosporine 0.05 % eye drops in a 1 drp ophthalmic (eye) BID 04/13/21 09/22/23 Unknown History dropperette (Restasis) docusate sodium 100 mg capsule 1 - 2 cap PO BEDTIME PRN 04/13/21 09/22/23 Unknown History (Colace) Constipation fluticasone propionate 50 2 spray intranasal DAILY 04/13/21 09/22/23 04/20/21 08:30 History mcg/actuation nasal spray,suspension (Flonase Allergy Relief) lancets 33 gauge (TRUEplus Lancets) #100 ea 07/09/21 09/22/23 Unknown History ketoconazole 2 % shampoo 1 appl topical BID 09/22/21 09/22/23 Unknown History atorvastatin 40 mg tablet (Lipitor) 40 mg PO BEDTIME 10/08/21 09/22/23 Unknown History aspirin 81 mg tablet,delayed 81 mg PO DAILY 03/02/22 09/22/23 11/14/22 History release (Adult Low Dose Aspirin) cetirizine 10 mg tablet (Allergy 10 mg PO QAM 03/02/22 09/22/23 11/16/22 08:15 History Relief (cetirizine)) gabapentin 300 mg capsule 600 mg PO TID 03/02/22 09/22/23 11/16/22 08:15 History (Neurontin) glipizide 10 mg tablet 10 mg PO QAM 03/02/22 09/22/23 Unknown History omeprazole 20 mg capsule,delayed 20 mg PO QAM 03/02/22 09/22/23 11/16/22 08:15 History release sitagliptin phosphate 50 mg tablet 50 mg PO QAM 03/02/22 09/22/23 Unknown History (Januvia) loratadine 10 mg tablet (Claritin) 10 mg PO DAILY PRN allergies 07/06/22 09/22/23 Unknown History empagliflozin 25 mg tablet 25 mg PO QAM 07/09/22 09/22/23 Unknown History (Jardiance) metformin 1,000 mg tablet 1,000 mg PO BID 07/09/22 09/22/23 Unknown History risperidone 2 mg tablet (Risperdal) 2 mg PO BEDTIME 07/09/22 09/22/23 Unknown History celecoxib 200 mg capsule (Celebrex) 200 mg PO QAM 11/16/22 09/22/23 11/16/22 08:15 History dulaglutide 0.75 mg/0.5 mL 0.75 mg subcut QWEEK 11/16/22 09/22/23 Unknown History subcutaneous pen injector (Trulicity) [id number] 3.5 3 drp otic (ears) QD-TID 11/16/22 09/22/23 Unknown History mg/mL-10,000 unit/mL-1 % ear solution losartan 100 mg tablet 100 mg PO QAM 12/27/22 09/22/23 Unknown History naloxone 4 mg/actuation nasal spray 1 spray intranasal DAILY PRN 12/27/22 09/22/23 Unknown History Opioid Overdose nifedipine 60 mg tablet,extended 60 mg PO DAILY 12/27/22 09/22/23 Unknown History release 24 hr oxycodone-acetaminophen 5 mg-325 1 tab PO BID PRN pain (scale score 12/27/22 09/22/23 Unknown History mg tablet (Endocet) 7-10) Exam Height,Weight and Vital Signs: Height 5 ft 2 in Weight 96 kg Assessment and Plan Final Anesthetic Review History of Problems with Anesthesia: No
[2023-09-27 10:50] VITALS: BP 145/98; PULSE 78; RESP 18; TEMP 36.7; O2SAT 98; BMI 38.4
--- NOTE | 2023-09-27 11:56 | MHC.SHP ---
Pre-Procedural Eval Section A - 24 Hr Update-Section A only Date of Service: 09/27/23 Section B - Complete if H&P > 30 days Chief Complaint: SCREENING Details of Present Illness: Chronic pain Depression Vascular insufficiency Lichen Hip pain Foot pain Foot callus Cubital tunnel syndrome Chronic vulvovaginitis Carpal tunnel syndrome Burn scar contracture of upper arm Blurring of visual image Mood disorder Hyperlipidemia Renal cyst Hematuria of unknown cause Smoker Arthritis Back pain Diabetes GERD (gastroesophageal reflux disease) Fibromyalgia Anxiety and depression MARK on CPAP Chronic sinusitis Asthma Elevated cholesterol HTN (hypertension) Surgical History S/P lumpectomy of breast (04/20/21) Hx of colonoscopy Hx of dilation and curettage H/O tubal ligation History of skin graft Allergies: Allergies Allergy/AdvReac Type Severity Reaction Status Date / Time morphine [MORPHINE] Allergy Unknown UNKNOWN Verified 08/10/23 08:39 Review of Systems Review of Systems Comment: 10 point ROS negative Exam Exam Comment: Gen appear: No acute distress HEENT: no icterus Chest: No overt resp distress Abd: soft, nontender, nondistended Psych: Stable affect, answering questions appropriately Neuro: A/Ox3 noted to move all extremities spontaneously Ext: no peripheral edema Plan Diagnosis/Plan: Unchanged I have reviewed the history and physical and performed a pertinent physical examination on my patient. No changes have occurred unless specified. Time Spent With Patient Time: Total time managing care of this patient today ____ minutes.
[2023-09-27 12:01] VITALS: BMI 38.4
--- NOTE | 2023-09-27 12:48 | W.PM.OPN ---
Operative Note Operative Note Date of Service: 09/27/23 Narrative: Procedure: Colonoscopy Indication: Screening Endoscopist: Viola Acuna MD Anesthesia Provider: Daniella Gay CRNA Anesthesia type: MAC Instrument: Olympus [id number] Consent: Indication, risks vs benefits, and alternatives were discussed with the patient who gave written informed consent to proceed. An medical coordinator pesticide use was utilized to assist with the consent. EKG, pulse, pulse oximetry and blood pressure were monitored throughout the procedure. Please see anesthesia flowsheet. Procedure: The patient was brought to the procedure room and placed in the left lateral decubitus position. IV medications were administered by the anesthesia provider in attendance. A digital rectal exam was performed which was abnormal due to finding of hemorrhoids. A distal attachment cap was affixed to the tip of the scope and the colonoscope was then inserted through the anus and advanced through the colon to the cecum at 80 cm, and terminal ileum. Mucosa was carefully examined under high definition white light as the instrument was slowly withdrawn in a retrograde panoramic fashion. Retroflexion was performed in rectum. The procedure was not difficult. There were no immediate obvious complications. The quality of the prep was BBPS: 1+2+1 = inadequate Withdrawal time 18 minutes. Limitations: Poor prep. Findings: Mucosa: Extensive liquid opaque stool was seen in the colon, which was suctioned and flushed out. Visualization remained poor however bhavesh in R colon. Protruding lesions: 1 sessile polyp of size 3 mm in transverse colon. Cold snare polypectomy was performed. The polyp was completely removed and retrieved. Medium internal hemorrhoids without stigmata of recent bleeding. Excavated lesions: Mild to moderate diverticulosis of left sided colon. Impression: 1. Poor prep 2. Total of 1 polyp removed 3. Diverticulosis 4. External and internal hemorrhoids Recommendations: - Follow path results. - Repeat colonoscopy in 1-2 years due to poor prep.
[2023-09-27 12:51] VITALS: BP 134/55; PULSE 62; RESP 16; TEMP 36.1; O2SAT 97
[2023-09-27 13:06] VITALS: BP 145/64; PULSE 54; RESP 16; O2SAT 98
[2023-09-27 13:21] VITALS: BP 148/68; PULSE 54; RESP 16; TEMP 36.2; O2SAT 98
[2023-10-04 13:11] LABS: Glucose, Whole Blood 110 mg/dL (60-115)
== END 2023-09-27 14:25 | disposition home or self-care (01) ==
LOC: HO.SSS 14:23
PROVIDERS: PCP Internal Medicine; Visit Provider Internal Medicine
PROC: 0DJD8ZZ Inspection of Lower Intestinal Tract, Via Natural or Artificial Opening Endoscopic (ICD-10-PCS; CPT 45378; principal; 2023-09-27 12:00)
DX: Z12.11 Encounter for screening for malignant neoplasm of colon (principal); D12.3 Benign neoplasm of transverse colon; K57.30 Diverticulosis of large intestine without perforation or abscess without bleeding; K64.8 Other hemorrhoids; K64.4 Residual hemorrhoidal skin tags; E11.9 Type 2 diabetes mellitus without complications; I10 Essential (primary) hypertension; J45.909 Unspecified asthma, uncomplicated; Z79.4 Long term (current) use of insulin; Z79.82 Long term (current) use of aspirin; Z79.899 Other long term (current) drug therapy
CPT/HCPCS: 45385; 82947; 88305; J1596; J2704

== ENCOUNTER 2023-10-25 14:09 | Outpatient (REF) | payer MEDICAID, SELFPAY ==
[2023-10-25 16:43] LABS: Anion Gap 15 (12-20); Blood Urea Nitrogen 17 mg/dL (9-16); Calcium 9.5 mg/dL (8.4-10.2); Carbon Dioxide 23 mmol/L (22-29); Chloride 107 mmol/L (96-108); Estimated Glomerular Filt Rate > 60; Glucose Random 80 mg/dL (60-115); Potassium 4.1 mmol/L (3.3-5.1); Sodium 141 mmol/L (135-145)
== END 2023-10-25 14:10 | disposition home or self-care (01) ==
LOC: HO.HHCL 14:09
PROVIDERS: Visit Provider Internal Medicine Geriatric Medicine
DX: M79.602 Pain in left arm (principal)
CPT/HCPCS: 36415; 80048

== ENCOUNTER 2023-11-16 13:07 | Outpatient (AMB) | payer MEDICAID, SELFPAY ==
[2023-11-16 13:17] VITALS: BP 139/79; PULSE 68; BMI 39.1
--- NOTE | 2023-11-16 13:17 | A.OFFVIS_ITS ---
Vital Signs 11/16/23 13:17 Height 5 ft 2 in Weight 214 lb BMI 39.1 BP 139/79 Blood Pressure Location Lt radial Position Sitting Pulse 68 Intake Visit Reasons: S/P colon Intake Note: Patient in office today in follow up s/p colonoscopy. CC: Patient states that since after her colonoscopy she is very constipated and has to digitally help her stool to come out. She also c/of rectal pain and lower back pain. Groundwater Monitoring Technician Required: Yes Accompanied by: Self / Same As Patient Allergies morphine [MORPHINE] Allergy (Unknown, Verified 11/16/23 13:24) UNKNOWN Medication List - Last Reconciled 11/16/23 by Billie Block PA-C albuterol sulfate 90 mcg/actuation (ProAir HFA) 2 puffs inhalation Q4-6H PRN albuterol sulfate 1 amp inhalation Q6H PRN aspirin (Adult Low Dose Aspirin) 81 mg PO DAILY atorvastatin (Lipitor) 40 mg PO BEDTIME carvedilol 6.25 mg PO BID celecoxib (Celebrex) 200 mg PO QAM cetirizine (Allergy Relief (cetirizine)) 10 mg PO QAM cholecalciferol (vitamin D3) (Vitamin D3) 1 cap PO QAM cyclobenzaprine 10 mg (2 x 5 mg) PO TID PRN cyclosporine 0.05% (Restasis) 1 drp ophthalmic (eye) BID docusate sodium (Colace) 1 - 2 caps PO BEDTIME PRN dulaglutide (Trulicity) mg subcut QWEEK duloxetine (Cymbalta) 60 mg PO QAM duloxetine (Cymbalta) 30 mg PO QPM empagliflozin (Jardiance) 25 mg PO QAM fluoride (sodium) 1.1% (SF 5000 Plus) 1 appl dental BID fluticasone propionate 50 mcg/actuation (Flonase Allergy Relief) 2 sprays intranasal DAILY gabapentin (Neurontin) 600 mg PO TID glipizide 10 mg PO QAM guaifenesin 200 mg (10 mL) PO Q4H PRN hydrochlorothiazide 12.5 mg PO QAM hydroxyzine HCl 50 mg PO BEDTIME ketoconazole 2% 1 appl topical BID lancets (TRUEplus Lancets) As directed loratadine (Claritin) 10 mg PO DAILY PRN losartan 100 mg PO QAM metformin 1,000 mg PO BID mirabegron ER (Myrbetriq) 50 mg PO DAILY naloxone 4 mg/actuation 1 spray intranasal DAILY PRN nifedipine ER 60 mg PO DAILY omeprazole 20 mg PO QAM oxycodone-acetaminophen 5-325 mg (Endocet) 1 tab PO BID PRN phenazopyridine (Pyridium) 200 mg PO TID PRN polyethylene glycol 3350 (Miralax) 238 grams PO ONCE 1 day risperidone (Risperdal) 2 mg PO BEDTIME sitagliptin phosphate (Januvia) 50 mg PO QAM HPI Comments Details: A 63 y/o female f/u after colonoscopy with polypectomy - inadequate prep She c/o constipation- at time disimpacts herself-she is not following any remedy She does have hemorrhoids she was scheduled for hemorrhoidectomy per her report however she canceled Reviewed procedure report, pathology and recommendation Diverticulosis/diverticulitis er protocol review Colon prep reviewed- Polyps discussed-need for follow-up with tubular adenomas No nausea, vomiting, hematemesis, fever or chills PFSH Medical History Asymmetric septal hypertrophy Heart block atrioventricular Chronic pain Depression Vascular insufficiency Lichen Hip pain Foot pain Foot callus Cubital tunnel syndrome Chronic vulvovaginitis Carpal tunnel syndrome Burn scar contracture of upper arm Blurring of visual image Mood disorder Hyperlipidemia Renal cyst Hematuria of unknown cause Smoker Arthritis Back pain Diabetes GERD (gastroesophageal reflux disease) Fibromyalgia Anxiety and depression MARK on CPAP Chronic sinusitis Asthma Elevated cholesterol HTN (hypertension) Surgical History Hx of cystoscopy S/P lumpectomy of breast (04/20/21) Hx of colonoscopy Hx of dilation and curettage H/O tubal ligation History of skin graft Family History Father No problems noted. Mother No problems noted. 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 Female Reproductive History Menstrual Age of Menarche: 14 Review of Systems Const All systems reviewed & are unremarkable except as noted in HPI and below GI Denies abdominal pain, Reports constipation, Denies heartburn, Denies nausea and Denies vomiting Physical Exam Vital Signs: Last Vital Signs Pulse 68 11/16/23 13:17 BP 139/79 11/16/23 13:17 BMI result Body Mass Index 39.1 Const General: cooperative, comfortable and no acute distress Nutritional Appearance: overweight Orientation/consciousness: patient oriented x3 Limitations: language barrier and ambulation with cane Resp Effort & Inspection: normal respiratory effort and able to speak in complete sentences Neuro General: patient oriented x3 Psych Appearance: grossly normal Mental Status: mental status grossly normal Speech and movement: Normal speech and movement present Affect: normal affect Attitude: cooperative Thought process: Normal thought process present Thought content: Normal thought content present Results Reviewed Results Reviewed: mpression: 1. Poor prep 2. Total of 1 polyp removed 3. Diverticulosis 4. External and internal hemorrhoids Recommendations: - Follow path results. - Repeat colonoscopy in 1-2 years due to poor prep. Name: Violet Pascal Age/Sex: 63/F Attending: Viola Acuna MD : 1960 Submitted by: Viola Acuna MD Copies to: Pretty Molina MD MR #: [id number] Status: [facility] Collected: 09/27/23 Location: [facility] Received: 09/27/23 Diagnosis Colon, transverse, polypectomy: Tubular adenoma; negative for high-grade dysplasia or carcinoma. Clinical History Pre-Op Dx: Screening Post-Op Dx: External hemorrhoids, diverticulosis, polyp Microscopic Description Microscopic sections reviewed. Material Received Transverse colon polyp Gross Description Received in formalin labeled ?transverse colon polyp? is a 0.25 cm ordonez papular tissue fragment, submitted in toto in a cassette labeled A. CEDS Copies To Pretty Molina MD [address] [place] [address] Viola Acuna MD [address] [place] [address], [address] [place] [address] [email or web address] NOTE: Unless otherwise stated, all tissue is formalin-fixed and paraffin- embedded. Some or all of the immunohistochemical tests reported herein may have been developed and their performance characteristics determined by [facility]. They have not been cleared or approved by the U.S. Food and Drug Administration (FDA). However, the FDA has determined that such clearance or approval is not necessary. This laboratory is certified under the Clinical Laboratory Improvement Amendments of 1988 (CLIA) as qualified to perform high complexity clinical laboratory testing. Electronically Signed By: Wally Harding MD 09/28/23 1522 Patient: Violet Pascal Age/Sex: 63/F MR#: [id number] Page 1 of 1 Assessment & Plan Assessment & Plan (1) Chronic constipation: Comment: Consistent bowel regimen Code(s): K59.09 - Other constipation Category: Medical Plan: Maintain high-fiber Adequate hydration Consistent bowel regimen (2) Tubular adenoma: Code(s): D36.9 - Benign neoplasm, unspecified site Category: Medical Plan: Repeat asymptomatic colonoscopy 1-2 year (3) Hemorrhoids: Code(s): K64.9 - Unspecified hemorrhoids Category: Medical Plan: Avoid straining Follow back with Dr. Mathis Plan Place reminder for 1 year to discuss colonoscopy Will need extended prep Medications: New docusate sodium (Colace) 200 mg (2 x 100 mg) PO BEDTIME 30 days 60 caps 5RF polyethylene glycol 3350 (Miralax) 17 grams PO DAILY 510 grams 6RF psyllium husk (Metamucil) mix into at least 8 oz of water or juice before administering 1 tbsp PO DAILY 30 days 660 grams 5RF bisacodyl (Dulcolax (bisacodyl)) 10 mg [place] DAILY PRN 20 ea 2RF constipation hydrocortisone 2.5% (Proctosol HC) 1 appl [place] BEDTIME PRN 30 grams 3RF hemorrhoids Patient Instructions: Repeat asymptomatic colonoscopy 1 year with extended prep Follow-up with surgery any further issues with hemorrhoids Maintain a high-fiber diet Avoid straining Use rectal cream Adequate hydration Diverticulosis/diverticulitis ER protocol Foods to avoid Coding Level of Care Code Est Pt Level 3 (43433) Diagnoses Chronic constipation K59.09 Tubular adenoma D36.9 Hemorrhoids K64.9 Time Spent (min) 30 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
== END 2023-11-16 14:26 | disposition home or self-care (01) ==
PROVIDERS: PCP Internal Medicine; Visit Provider Physician Assistant
DX: K59.09 Other constipation (principal); D36.9 Benign neoplasm, unspecified site; K64.9 Unspecified hemorrhoids
CPT/HCPCS: 99213

== ENCOUNTER → 2023-11-16 13:07 | Outpatient (BNVA) | payer MEDICAID, SELFPAY | PROVIDERS: PCP Internal Medicine; Visit Provider Physician Assistant | DX: K59.09 Other constipation (principal); K64.9 Unspecified hemorrhoids; D36.9 Benign neoplasm, unspecified site | CPT/HCPCS: 99212 ==

== ENCOUNTER 2024-01-10 08:23 | Outpatient (REF) | payer MEDICAID, SELFPAY ==
[2024-01-10 12:11] LABS: Alanine Aminotransferase 17 U/L (0-31); Albumin Level 4.1 g/dL (3.5-5.0); Alkaline Phosphatase 102 U/L (39-117); Anion Gap 12 (12-20); Aspartate Amino Transferase 21 U/L (5-31); Bilirubin Total 0.3 mg/dL (0.0-1.0); Blood Urea Nitrogen 19 mg/dL (9-16); Carbon Dioxide 26 mmol/L (22-29); Chloride 105 mmol/L (96-108); Cholesterol 155 mg/dL (<200); Estimated Glomerular Filt Rate > 60; Glucose Random 108 mg/dL (60-115); HDL Cholesterol 47 mg/dL (>40); LDL Cholesterol Calculated 80 mg/dL (<100); Potassium 4.4 mmol/L (3.3-5.1); Sodium 139 mmol/L (135-145); Total Protein 6.8 g/dL (6.5-8.0); Triglycerides 140 mg/dL (<150)
[2024-01-10 12:16] LABS: Vitamin D 25-OH Total 54.1 ng/mL (>30)
[2024-01-10 12:48] LABS: Reflex LDLD? No
== END 2024-01-10 08:24 | disposition home or self-care (01) ==
LOC: HO.HHCL 08:23
PROVIDERS: Visit Provider Internal Medicine
DX: I10 Essential (primary) hypertension (principal)
CPT/HCPCS: 36415; 80053; 80061; 82306

== ENCOUNTER 2024-02-02 13:42 | Outpatient (AMB) | payer MEDICAID, SELFPAY ==
--- NOTE | 2024-02-02 13:45 | MHC.OFFVIS ---
Vital Signs 02/02/24 13:46 Height 5 ft 2 in Weight 210 lb 5.136 oz BMI 38.5 BP 130/78 Blood Pressure Location Lt brachial Position Sitting Pulse 66 Pulse Source Pulse Oximeter Intake Visit Reasons: 6 month f/u (Pt wants to see MD only) Plunger Shovel Operator Required: Yes Plunger Shovel Operator Services: Plunger Shovel Operator Present Plunger Shovel Operator Name: Savannah [id number] Accompanied by: Self / Same As Patient Allergies morphine [MORPHINE] Allergy (Unknown, Verified 11/16/23 13:24) UNKNOWN Medication List - Last Reconciled 02/02/24 by Maury Glover MD albuterol sulfate 90 mcg/actuation (ProAir HFA) 2 puffs inhalation Q4-6H PRN albuterol sulfate 1 amp inhalation Q6H PRN aspirin (Adult Low Dose Aspirin) 81 mg PO DAILY atorvastatin (Lipitor) 40 mg PO BEDTIME bisacodyl (Dulcolax (bisacodyl)) 10 mg [place] DAILY PRN carvedilol 6.25 mg PO BID celecoxib (Celebrex) 200 mg PO QAM cetirizine (Allergy Relief (cetirizine)) 10 mg PO QAM cholecalciferol (vitamin D3) (Vitamin D3) 1 cap PO QAM cyclobenzaprine 10 mg (2 x 5 mg) PO TID PRN cyclosporine 0.05% (Restasis) 1 drp ophthalmic (eye) BID docusate sodium (Colace) 200 mg (2 x 100 mg) PO BEDTIME 30 days dulaglutide (Trulicity) mg subcut QWEEK duloxetine (Cymbalta) 60 mg PO QAM duloxetine (Cymbalta) 30 mg PO QPM empagliflozin (Jardiance) 25 mg PO QAM fluoride (sodium) 1.1% (SF 5000 Plus) 1 appl dental BID fluticasone propionate 50 mcg/actuation (Flonase Allergy Relief) 2 sprays intranasal DAILY gabapentin (Neurontin) 600 mg PO TID glipizide 10 mg PO QAM hydrochlorothiazide 12.5 mg PO QAM hydrocortisone 2.5% (Proctosol HC) 1 appl [place] BEDTIME PRN hydroxyzine HCl 50 mg PO BEDTIME ketoconazole 2% 1 appl topical BID lancets (TRUEplus Lancets) As directed loratadine (Claritin) 10 mg PO DAILY PRN losartan 100 mg PO QAM metformin 1,000 mg PO BID mirabegron ER (Myrbetriq) 50 mg PO DAILY naloxone 4 mg/actuation 1 spray intranasal DAILY PRN nifedipine ER 60 mg PO DAILY omeprazole 20 mg PO QAM oxycodone-acetaminophen 5-325 mg (Endocet) 1 tab PO BID PRN polyethylene glycol 3350 (Miralax) 17 grams PO DAILY psyllium husk (Metamucil) 1 tbsp PO DAILY 30 days risperidone (Risperdal) 2 mg PO BEDTIME sitagliptin phosphate (Januvia) 50 mg PO QAM HPI Comments Details: Patient returns for follow-up. She has been seen in the past regarding hypertension and palpitations. Many comorbidities including hypertension, diabetes, dyslipidemia, obstructive sleep apnea. She has had uncontrolled blood pressures in the past but improved more recently. She still has some palpitations off and on. She also gets some chest pressure/discomfort at different times. Even with the river rafting guide, difficult to assess what it is. No documented coronary disease. [facility] Medical History Asymmetric septal hypertrophy Heart block atrioventricular Chronic pain Depression Vascular insufficiency Lichen Hip pain Foot pain Foot callus Cubital tunnel syndrome Chronic vulvovaginitis Carpal tunnel syndrome Burn scar contracture of upper arm Blurring of visual image Mood disorder Hyperlipidemia Renal cyst Hematuria of unknown cause Smoker Arthritis Back pain Diabetes GERD (gastroesophageal reflux disease) Fibromyalgia Anxiety and depression MARK on CPAP Chronic sinusitis Asthma Elevated cholesterol HTN (hypertension) Surgical History Hx of cystoscopy S/P lumpectomy of breast (04/20/21) Hx of colonoscopy Hx of dilation and curettage H/O tubal ligation History of skin graft Family History Father No problems noted. Mother No problems noted. 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 Female Reproductive History Menstrual Age of Menarche: 14 Review of Systems Const Denies chills, Denies fatigue, Denies fever(s), Denies weight gain and Denies weight loss ENT Denies dizziness Card Denies chest pain, Denies leg edema, Denies lightheadedness, Denies palpitations, Denies dyspnea on exertion, Denies orthopnea and Denies other Resp Denies cough and Denies dyspnea on exertion GI Denies hematochezia and Denies change in stool character Musc Denies abnormal gait, Denies muscle weakness, Denies numbness, Denies radiating pain into limb and Denies tingling Neuro Denies abnormal gait, Denies dizziness, Denies numbness and Denies tingling Endo Denies fatigue and Denies palpitations Physical Exam Vital Signs: Last Vital Signs Pulse 66 02/02/24 13:46 BP 130/78 02/02/24 13:46 BMI result Body Mass Index 38.5 Const General: comfortable and no acute distress Orientation/consciousness: patient oriented x3 HEENT Other: Unremarkable Head: Yes normal to inspection Neck Neck: Yes normal visual inspection Chest Chest palpation & inspection: normal inspection of the chest Resp Auscultation: clear to auscultation bilaterally Cardio Palpation: normal PMI Heart sounds: S1 normal heart sound present, S2 normal heart sound present, no gallops, no murmurs and no rubs GI Palpation (GI): Soft to palpation Back/Spine/Pelvis Other: unremarkable Skin General skin exam: no rashes or lesions noted Neuro General: patient oriented x3 Extrem General: Yes normal to inspection Psych Mental Status: mental status grossly normal Assessment & Plan Assessment & Plan (1) Asymmetric septal hypertrophy: Code(s): I42.2 - Other hypertrophic cardiomyopathy Category: Medical Plan: Echocardiogram with severe septal hypertrophy which could be related to hypertension. Mainly blood pressure management only. No evidence of LVOT obstruction. (2) Essential hypertension: Code(s): I10 - Essential (primary) hypertension Category: Medical Plan: She is on combination of losartan, hydrochlorothiazide as well as carvedilol. Seems stable at this time. (3) Heart block atrioventricular: Code(s): I44.30 - Unspecified atrioventricular block Category: Medical Plan: Was seen in a prior Holter during revenue enforcement agent hours-Mobitz type 1 second-degree block and some junctional. Baseline EKG has first-degree heart block. Possibly stopped beta-blockers in the future but then her blood pressure may go up. In that case, may need a different agent for blood pressure like spironolactone. Can address follow-up visits. (4) Chest discomfort: Code(s): R07.89 - Other chest pain Category: Medical Plan: She is walking with a cane and hence not suitable for exercise stress testing. She already has evidence of heart block and hence not suitable for Lexiscan either. Obtain coronary CTA. Orders: Orders Basic Metabolic Panel Today I42.2 - Other hypertrophic cardiomyopathy CT Cardiac Coronary Angio Today I25.10 - Atherosclerotic heart disease of [place] coronary artery without angina pectoris Coding Level of Care Code Est Pt Level 4 (57645) Diagnoses Asymmetric septal hypertrophy I42.2 Essential hypertension I10 Heart block atrioventricular I44.30 Chest discomfort R07.89
[2024-02-02 13:46] VITALS: BP 130/78; PULSE 66; BMI 38.5
== END 2024-02-02 14:22 | disposition home or self-care (01) ==
PROVIDERS: PCP Internal Medicine; Referring Provider Internal Medicine; Visit Provider Internal Medicine
DX: I42.2 Other hypertrophic cardiomyopathy (principal); I10 Essential (primary) hypertension; I44.30 Unspecified atrioventricular block; R07.89 Other chest pain
CPT/HCPCS: 99214

== ENCOUNTER → 2024-02-02 13:42 | Outpatient (BNVA) | payer MEDICAID, SELFPAY | PROVIDERS: PCP Internal Medicine; Visit Provider Internal Medicine | DX: I10 Essential (primary) hypertension (principal); I44.30 Unspecified atrioventricular block; I42.2 Other hypertrophic cardiomyopathy; R07.89 Other chest pain | CPT/HCPCS: 99212 ==

== ENCOUNTER 2024-03-22 08:51 | Outpatient (AMB) | payer MEDICAID, SELFPAY ==
--- NOTE | 2024-03-22 09:03 | MHC.OFFVIS ---
Intake Visit Reasons: 6m follow up Intake Note: Patient is present for 6M F/U Urology Medication:HYDROXYZINE, MYRBETRIQ Antibiotic Allergy:NONE Blood Thinner:NONE Patternmaker Pressure Cast Required: Yes Patternmaker Pressure Cast Language: Engraver Copperplate Name: Cortney--[id number] Allergies morphine [MORPHINE] Allergy (Unknown, Verified 04/04/24 14:05) UNKNOWN HPI Comments Details: 03/22/24--Violet is a 64 year old female who is here for FU for LUTS pelvic pain, urgency. The patient is a Swedish speaking female. Certified eyeglass fitter was present during the visit. She had previous cystoscopy hydrodistention 11/16/22, presenting with urinary frequency and nocturia. She complains of vaginal pain. Will refer to GEL COAT SPRAYER Review of chart: 09/22/23--Violet is a 63 year old female who is here for FU for LUTS pelvic pain, urgency. The patient is a Swedish speaking female. Certified eyeglass fitter was present during the visit. Past Medical history Fibromyalgia, Arthritis, Asthma, Back pain, Chronic vulvovaginitis. She had previous cystoscopy hydrodistention 11/16/22, she is prescribed Vistaril 50 mg at bedtime and Myrbetriq 50 mg q.a.m.. She states that she will occasionally still get flare-ups of bladder pressure. I have reviewed the importance of avoiding dietary bladder irritants. Urinalysis 1+ trace protein, Blood 25 Alverto, leuk - trace; bladder scan PVR 79 mL Plan continue Vistaril 50 mg and Myrbetriq 50 mg, IC diet. follow-up in 6 months. 05/23/2023-- Violet is a 63 year old female who is here for FU for LUTS pelvic pain, urgency. The patient is a Swedish speaking female. Certified eyeglass fitter was present during the visit. Past Medical history Fibromyalgia, Arthritis, Asthma, Back pain, Chronic vulvovaginitis The patient underwent cystoscopy hydrodistension procedure on 11/16/22 for pelvic pain and microscopic hematuria. The patient complains of daytime urinary frequency every 2-3 hours, denies urinary incontinence, nocturia 2-3x, denies hematuria, has intermittent dysuria, feeling of incomplete bladder emptying/pressure. I have discussed avoiding dietary bladder irritants, including to cut back on caffeine usage. She states she stopped the oxybutynin 15 mg because it was not helping, was treated with vesicare in the past, she states the vistaril 25 mg is beneficial. I will increase the vistaril to 50 mg, disussed pyridium prn dysuria, Trial myrbetriq to replace oxybutynin. Review of Tests: Imaging/Labs/Results-- 11/16/22 --Cysto/hydrodistention--Cystoscopy findings-- bladder capacity post distention 875 milliliters. No glomerulations noted post distention. The patient stated that her bladder pain improved after the procedure 03/02/22--Renal US findings showed bilateral complex cyst. CAT scan results reviewed--05/10/2022- Suggestive of 7 mm complex cyst in the right kidney and bilateral simple cyst. There is no kidney stones. [facility] Medical History Asymmetric septal hypertrophy Heart block atrioventricular Chronic pain Depression Vascular insufficiency Lichen Hip pain Foot pain Foot callus Cubital tunnel syndrome Chronic vulvovaginitis Carpal tunnel syndrome Burn scar contracture of upper arm Blurring of visual image Mood disorder Hyperlipidemia Renal cyst Hematuria of unknown cause Smoker Arthritis Back pain Diabetes GERD (gastroesophageal reflux disease) Fibromyalgia Anxiety and depression MARK on CPAP Chronic sinusitis Asthma Elevated cholesterol HTN (hypertension) Surgical History Hx of cystoscopy S/P lumpectomy of breast (04/20/21) Hx of colonoscopy Hx of dilation and curettage H/O tubal ligation History of skin graft Family History Father No problems noted. Mother No problems noted. 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 Female Reproductive History Menstrual Age of Menarche: 14 Review of Systems Const All systems reviewed & are unremarkable except as noted in HPI and below Reports no additional complaints Eyes Reports no additional complaints ENT Reports no additional complaints Card Reports no additional complaints Resp Reports no additional complaints GI Reports no additional complaints Reports as per HPI Musc Reports no additional complaints Skin/Breast Reports system reviewed and no additional complaints, except as documented Neuro Reports no additional complaints Psych Reports no additional complaints Endo Reports no additional complaints Isma/Lymph Reports no additional complaints Aller/Immun Reports no additional complaints Results AMB Urinalysis, Automated UA Leukoctes 0 Yanni/uL Last Edit by REYMUNDO Corea on 03/22/24 09:39 UA Nitrite Negative Last Edit by Kira Orozco CCM on 03/22/24 09:39 UA Urobilinogen 0.2 mg/dL Last Edit by REYMUNDO Corea on 03/22/24 09:39 UA Protein 100 mg/dL Last Edit by Kira Orozco CCM on 03/22/24 09:39 UA pH 6.0 Last Edit by Kira Orozco CCM on 03/22/24 09:39 UA Blood 80 Alverto/uL Last Edit by Kira Orozco CCM on 03/22/24 09:39 UA Specific [place] 1.025 Last Edit by REYMUNDO Corea on 03/22/24 09:39 UA Ketone Negative Last Edit by Kira Orozco CCM on 03/22/24 09:39 UA Bilirubin 0 mg/dL Last Edit by Kira Orozco CCM on 03/22/24 09:39 UA Glucose 0 mg/dL Last Edit by Kira Orozco [facility] on 03/22/24 09:39 Results Reviewed Results Reviewed: Laboratory Last Values Urine pH (Auto) 6.0 03/22/24 09:38 Specific [place] (Auto) 1.025 03/22/24 09:38 Urine Protein (Auto) 100 mg/dL 03/22/24 09:38 Glucose (UA)(Auto) 0 mg/dL 03/22/24 09:38 Urine Ketones (Auto) Negative 03/22/24 09:38 Urine Blood (Auto) 80 Alverto/uL 03/22/24 09:38 Urine Nitrite (Auto) Negative 10/10/24 09:38 Urine Bilirubin (Auto) 0 mg/dL 03/22/24 09:38 Urine Urobilinogen (Auto) 0.2 mg/dL 03/22/24 09:38 Leukocyte Esterase (Auto) 0 Yanni/uL 03/22/24 09:38 Assessment & Plan Assessment & Plan (1) Urinary frequency: Code(s): R35.0 - Frequency of micturition Category: Medical (2) Microscopic hematuria: Code(s): R31.29 - Other microscopic hematuria Category: Medical (3) Pelvic pain: Code(s): R10.2 - Pelvic and perineal pain Category: Medical (4) Urinary urgency: Code(s): R39.15 - Urgency of urination Category: Medical (5) Renal cyst: Comment: bilateral Code(s): N28.1 - Cyst of kidney, acquired Category: Medical Plan Vistaril to 50 mg QHS Myrbetriq 50 mg Diet modification avoid dietary bladder irritants. renal US Refer to GEL COAT SPRAYER - vaginal pain Orders: Orders US renal BI 03/29/24 R35.0 - Frequency of micturition AMB Urinalysis Automated 03/22/24 Z13.9 - Encounter for screening, unspecified Patient Instructions: The patient had an opportunity to ask questions regarding treatment plan. The patient expressed understanding and agreement with the above treatment plan. The patient is aware they should contact our office by phone for worsening of their current condition or the appearance of new symptoms. Compliance is encouraged with any medications and followup testing that is ordered. It is a privilege to be allowed the opportunity to participate in the urologic care of your patient. If you have any questions or concerns regarding treatment for the above conditions please do not hesitate to contact me. The office telephone contact is [phone]. This note is constructed in part using voice recognition software. While every effort has been made to ensure accuracy dope maintenance worker errors may have been included. Yours sincerely, Darian Bunn MD Coding Level of Care Code Est Pt Level 4 (58575) Diagnoses Urinary frequency R35.0 Microscopic hematuria R31.29 Pelvic pain R10.2 Urinary urgency R39.15 Renal cyst N28.1
== END 2024-03-22 10:14 | disposition home or self-care (01) ==
PROVIDERS: PCP Internal Medicine; Visit Provider Urology
DX: R35.0 Frequency of micturition (principal); R31.29 Other microscopic hematuria; R10.2 Pelvic and perineal pain; R39.15 Urgency of urination; N28.1 Cyst of kidney, acquired
CPT/HCPCS: 99214

== ENCOUNTER → 2024-03-22 08:51 | Outpatient (BNVA) | payer MEDICAID, SELFPAY | PROVIDERS: PCP Internal Medicine; Visit Provider Urology | DX: R35.1 Nocturia (principal); R35.0 Frequency of micturition; R10.2 Pelvic and perineal pain | CPT/HCPCS: 81003; 99212 ==

== ENCOUNTER 2024-03-29 13:43 | Outpatient (REF) | payer MEDICAID, SELFPAY ==
--- NOTE | ~2024-03-29 | US_ITS ---
EXAMINATION: US RETROPERITONEAL LIMITED (RENAL ONLY) CLINICAL INFORMATION: Frequency of micturition. COMPARISON: CT abdomen without and with contrast 05/10/2022. Renal ultrasound 03/10/2022 and 07/30/2021. TECHNIQUE: Real-time imaging of the kidneys. FINDINGS: RIGHT KIDNEY: 9.7 x 4.9 x 5.5 cm (SAG x AP x TRV). The kidney is normal in size, contour, and echogenicity. Renal cortical thickness is normal. No renal calculi or hydronephrosis. There is a right lower pole cortical exophytic 9 x 7 x 7 mm mass present, similar to the 03/02/2022 ultrasound. On the prior CT dated 05/10/2022, this can be seen and shows no enhancement. LEFT KIDNEY: 10.0 x 4.9 x 3.6 cm (SAG x AP x TRV). The kidney is normal in size, contour, and echogenicity. Renal cortical thickness is normal. No renal calculi or hydronephrosis. A benign lower pole 0.6 cm Bosniak class I renal cyst is noted which requires no additional imaging or follow up. No solid renal masses are seen. US/US renal BI IMPRESSION: 1. A cause for the patient's urinary frequency has not been found. The bladder or prostate was not evaluated as this was not ordered. 2. Incidental note made of a 9 mm right lower pole cortical exophytic mass which is stable compared to the 03/02/2022 ultrasound and 05/10/2022 CT scan. This is a benign Bosniak class I or possibly II renal cyst which, in either case, requires no additional imaging or follow up. Electronically signed by: Ruben Peterson MD 05/27/2024 10:50 PM EST
== END 2024-03-29 13:44 | disposition home or self-care (01) ==
LOC: HO.US 13:43
PROVIDERS: PCP Internal Medicine; Visit Provider Urology
DX: R35.0 Frequency of micturition (principal)
CPT/HCPCS: 76775

== ENCOUNTER 2024-04-04 13:51 | Outpatient (AMB) | payer MEDICAID, SELFPAY ==
--- NOTE | 2024-04-04 13:54 | MHC.OFFVIS ---
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 Operator Required: Yes Filling And Stapling Machine Operator Language: Botany Technician Services: Filling And Stapling Machine Operator Present (in person) Filling And Stapling Machine Operator Name: Kandice HUMPHREY Information Interpreted: non-clinical & clinical Assistant Cross Country Coach: Assistant Cross Country Coach Present (Kandice HUMPHREY) Accompanied by: Self / Same As Patient Allergies morphine [MORPHINE] Allergy (Unknown, Verified 04/04/24 14:05) UNKNOWN Post menopausal: Yes HPI Comments Details: Presenting complaining of suprapubic pressure associated with urinary frequency and nocturia and relieved after emptying blood bladder. The patient had microscopic hematuria was refer to urology, and was treated with oxybutynin and VESIcare to no avail then the patient was started on Vistaril and the dose was increased to 50 mg p.o. Last visit was on 03/22/24. No vaginal bleeding discharge or any other symptom PFSH Medical History Asymmetric septal hypertrophy Heart block atrioventricular Chronic pain Depression Vascular insufficiency Lichen Hip pain Foot pain Foot callus Cubital tunnel syndrome Chronic vulvovaginitis Carpal tunnel syndrome Burn scar contracture of upper arm Blurring of visual image Mood disorder Hyperlipidemia Renal cyst Hematuria of unknown cause Smoker Arthritis Back pain Diabetes GERD (gastroesophageal reflux disease) Fibromyalgia Anxiety and depression MARK on CPAP Chronic sinusitis Asthma Elevated cholesterol HTN (hypertension) Surgical History Hx of cystoscopy S/P lumpectomy of breast (04/20/21) Hx of colonoscopy Hx of dilation and curettage H/O tubal ligation History of skin graft Family History Father No problems noted. Mother No problems noted. 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 Female Reproductive History Menstrual Age of Menarche: 14 Review of Systems Const All systems reviewed & are unremarkable except as noted in HPI and below Physical Exam Vital Signs: BMI result Body Mass Index 38.3 General: Yes no CVA tenderness External Female Exam: normal external appearance and normal appearance of the urethra Speculum Exam - Vagina: normal appearance of the vagina, normal palpation, no lesions and no masses Speculum Exam - Cervix: normal appearance of the cervix, normal palpation, no lesions, no masses and nontender Bimanual exam- vagina & uterus: normal bimanual exam, normal palpation, uterine size normal, normal palpation, uterine shape normal, No Cervical tenderness present and non-tender Bimanual Exam- Adnexa, other: normal adnexae Back/Spine/Pelvis Back: no CVA tenderness Assessment & Plan Assessment & Plan (1) Pelvic pressure in female: Code(s): R10.2 - Pelvic and perineal pain Category: Medical Plan: Urine dip done in the office was negative. Will order pelvic ultrasound to rule out pelvic pathology causing urinary frequency. Instructions given the patient to schedule a pelvic ultrasound and an ultrasound follow-up appointment within 2 weeks. All questions answered, the patient verbalized understanding Coding Level of Care Code Est Pt Level 3 (97824) Diagnoses Pelvic pressure in female R10.2
[2024-04-04 14:05] VITALS: BMI 38.3
== END 2024-04-04 15:10 | disposition home or self-care (01) ==
LOC: HO.HWS 13:51
PROVIDERS: PCP Internal Medicine; Visit Provider Obstetrics & Gynecology
DX: R10.2 Pelvic and perineal pain (principal)
CPT/HCPCS: 99213

== ENCOUNTER → 2024-04-04 13:51 | Outpatient (BNVA) | payer MEDICAID, SELFPAY | PROVIDERS: PCP Internal Medicine; Visit Provider Obstetrics & Gynecology | DX: R10.2 Pelvic and perineal pain (principal) | CPT/HCPCS: 99212 ==

== ENCOUNTER 2024-04-10 13:27 | Outpatient (REF) | payer MEDICAID, SELFPAY | END 2024-04-10 13:28 | disposition home or self-care (01) | LOC: HO.US 13:27 | PROVIDERS: PCP Internal Medicine; Visit Provider Obstetrics & Gynecology | DX: R10.2 Pelvic and perineal pain (principal) | CPT/HCPCS: 76830; 76856 ==

== ENCOUNTER 2024-04-24 12:58 | Emergency (ER) | payer MEDICAID, SELFPAY ==
--- NOTE | ~2024-04-24 | XR_ITS ---
EXAMINATION: XR CHEST CLINICAL INFORMATION: Cough for several weeks COMPARISON: 11/29/2021 and 09/13/2022 TECHNIQUE: 2 views of the chest were obtained. FINDINGS: Lungs grossly clear. Heart size normal with normal caliber pulmonary vessels. No pleural effusion. Mild spondylitic change in the thoracic spine. Calcified left axillary node noted. XR/XR chest 2V IMPRESSION: No active disease. Electronically signed by: Khoa Machuca MD 04/24/2024 02:20 PM EDEN TAYLOR
--- NOTE | ~2024-04-24 | CT_ITS ---
EXAMINATION: CT CHEST WITHOUT CONTRAST CLINICAL INFORMATION: RSV, SOB, ?PNA COMPARISON: Chest x-ray April 22, 2024 TECHNIQUE: Multidetector volumetric CT imaging of the chest was done. Axial MIP volume rendering provided. Sagittal and coronal reformatted images were obtained. This CT examination was performed using dose optimization techniques as appropriate, variously including the following: *Automated exposure control *Adjustment of mA and/or kV according to patient size (this includes techniques or standardized protocols for targeted exams where dose is matched to indication/reason for exam; i.e. extremities or head) *Use of iterative reconstruction technique DLP: 362 mGy-cm FINDINGS: LUNGS: Multifocal scattered groundglass opacities in the lungs bilateral. This is nonspecific but consistent with inflammatory/ infectious etiology given patient history. No dense consolidation. Central bronchial airways are open. There is no bronchiectasis. MEDIASTINUM: No bulky lymphadenopathy. 0.9 cm lymph node in the pretracheal retrovascular space and a few smaller shotty lymph nodes at the AP window and subcarinal. Heart size normal. No pericardial effusion. CORONARY ARTERY CALCIFICATION: Small volume of coronary calcification. PLEURA: There is no pleural effusion. No pleural mass or thickening. AXILLA: No lymphadenopathy. UPPER ABDOMEN: Enlarged left adrenal gland measuring 2.7 x 1.9 cm. Density measurement 2 Hounsfield units consistent with adrenal adenoma. No further follow-up imaging recommended. Left Adrenal adenoma unchanged since CAT scan May 10, 2022. Normal right adrenal gland. OSSEOUS STRUCTURES: Unremarkable. CT/CT chest wo IV con IMPRESSION: 1. Multifocal scattered groundglass opacities in the lungs bilateral. This is nonspecific but consistent with inflammatory/infectious etiology given patient history. No dense consolidation. Fleischner guidelines were followed. Electronically signed by: Lavelle Kendall MD 04/24/2024 11:13 PM [facility]
--- NOTE | 2024-04-24 13:49 | ED_ITS ---
HPI - General Adult General Chief complaint: Upper Respiratory Symptoms Stated complaint: multiple symptoms Time Seen by Provider: 04/24/24 20:34 Source: patient Mode of arrival: ambulatory Limitations: no limitations History of Present Illness ED Provider: Ashlie Rust NP HPI narrative: Patient is a 64-year-old female who presents emergency department for evaluation. She states that she received her flu vaccination at the end of March, and she has been feeling generally unwell since then. She has been having progressive shortness of breath, productive cough, intermittent headache, fatigue and generalized weakness. She states that she was seen at [facility] 04/18 and was given medication for management of her asthma but she states she has not had any relief with this. She continues to be using her inhaler at home and nebulizer without much improvement. Denies dizziness, neck pain, neck stiffness, chest pain, sore throat, nausea, vomiting, abdominal pain, numbness or tingling of the extremities, genitourinary symptoms. Related Data Home Medications ?Medication ?Instructions ?Recorded ?Confirmed duloxetine 30 mg capsule,delayed 30 mg PO QPM 04/03/21 02/02/24 release (Cymbalta) duloxetine 60 mg capsule,delayed 60 mg PO QAM 04/03/21 02/02/24 release (Cymbalta) fluoride (sodium) 1.1 % dental 1 appl dental BID 04/03/21 02/02/24 cream (SF 5000 Plus) hydrochlorothiazide 12.5 mg tablet 12.5 mg PO QAM 04/03/21 02/02/24 albuterol sulfate 2.5 mg/3 mL 1 amp inhalation Q6H PRN Wheezing 04/13/21 02/02/24 (0.083 %) solution for nebulization albuterol sulfate 90 mcg/actuation 2 puff inhalation Q4-6H PRN 04/13/21 02/02/24 aerosol inhaler (ProAir HFA) Wheezing cholecalciferol (vitamin D3) 25 1 cap PO QAM 04/13/21 02/02/24 mcg (1,000 unit) capsule (Vitamin D3) cyclosporine 0.05 % eye drops in a 1 drp ophthalmic (eye) BID 04/13/21 02/02/24 dropperette (Restasis) fluticasone propionate 50 2 spray intranasal DAILY 04/13/21 02/02/24 mcg/actuation nasal spray,suspension (Flonase Allergy Relief) lancets 33 gauge (TRUEplus Lancets) #100 ea 07/09/21 02/02/24 ketoconazole 2 % shampoo 1 appl topical BID 09/22/21 02/02/24 atorvastatin 40 mg tablet (Lipitor) 40 mg PO BEDTIME 10/08/21 02/02/24 aspirin 81 mg tablet,delayed 81 mg PO DAILY 03/02/22 02/02/24 release (Adult Low Dose Aspirin) cetirizine 10 mg tablet (Allergy 10 mg PO QAM 03/02/22 02/02/24 Relief (cetirizine)) gabapentin 300 mg capsule 600 mg PO TID 03/02/22 02/02/24 (Neurontin) glipizide 10 mg tablet 10 mg PO QAM 03/02/22 02/02/24 omeprazole 20 mg capsule,delayed 20 mg PO QAM 03/02/22 02/02/24 release sitagliptin phosphate 50 mg tablet 50 mg PO QAM 03/02/22 02/02/24 (Januvia) loratadine 10 mg tablet (Claritin) 10 mg PO DAILY PRN allergies 07/06/22 02/02/24 empagliflozin 25 mg tablet 25 mg PO QAM 07/09/22 02/02/24 (Jardiance) metformin 1,000 mg tablet 1,000 mg PO BID 07/09/22 02/02/24 risperidone 2 mg tablet (Risperdal) 2 mg PO BEDTIME 07/09/22 02/02/24 celecoxib 200 mg capsule (Celebrex) 200 mg PO QAM 11/16/22 02/02/24 losartan 100 mg tablet 100 mg PO QAM 12/27/22 02/02/24 naloxone 4 mg/actuation nasal spray 1 spray intranasal DAILY PRN 12/27/22 02/02/24 Opioid Overdose nifedipine 60 mg tablet,extended 60 mg PO DAILY 12/27/22 02/02/24 release 24 hr oxycodone-acetaminophen 5 mg-325 1 tab PO BID PRN pain (scale score 12/27/22 02/02/24 mg tablet (Endocet) 7-10) dulaglutide 1.5 mg/0.5 mL mg subcut QWEEK 06/05/24 08/22/24 subcutaneous pen injector (Trulicity) Previous Rx's ?Medication ?Instructions ?Recorded cyclobenzaprine 5 mg tablet 10 mg (2 x 5 mg) PO TID PRN muscle 10/02/20 spasm #10 tabs carvedilol 6.25 mg tablet 6.25 mg PO BID #180 tabs 07/20/23 hydroxyzine HCl 50 mg tablet 50 mg PO BEDTIME #90 tabs 09/22/23 mirabegron 50 mg tablet,extended 50 mg PO DAILY #90 tabs 09/22/23 release 24 hr (Myrbetriq) bisacodyl 10 mg rectal suppository 10 mg WV DAILY PRN constipation 11/16/23 (Dulcolax (bisacodyl)) #20 ea docusate sodium 100 mg capsule 200 mg (2 x 100 mg) PO BEDTIME 30 11/16/23 (Colace) days #60 caps polyethylene glycol 3350 17 17 g PO DAILY #510 grams 11/16/23 gram/dose oral powder (Miralax) psyllium husk 3.4 gram/5.4 gram 1 tbsp PO DAILY 30 days #660 grams 11/16/23 oral powder (Metamucil) hydrocortisone 2.5 % topical cream 1 appl WV BEDTIME PRN hemorrhoids 03/02/24 with perineal applicator #30 grams amoxicillin 875 mg-potassium 1 tab PO BID #14 tabs 04/24/24 clavulanate 125 mg tablet azithromycin 250 mg tablet See Rx Instructions PO .COMPLEX #6 04/24/24 tabs prednisone 20 mg tablet 40 mg (2 x 20 mg) PO DAILY #8 tabs 04/24/24 Allergies Allergy/AdvReac Type Severity Reaction Status Date / Time morphine [MORPHINE] Allergy Unknown UNKNOWN Verified 04/24/24 13:55 Review of Systems 2 Review of Systems: Yes all other systems are reviewed and are negative PMFSH Past Medical History Attestation statement: The following information was validated with the patient. Source: old records reviewed Medical History Asymmetric septal hypertrophy Heart block atrioventricular Chronic pain Depression Vascular insufficiency Lichen Hip pain Foot pain Foot callus Cubital tunnel syndrome Chronic vulvovaginitis Carpal tunnel syndrome Burn scar contracture of upper arm Blurring of visual image Mood disorder Hyperlipidemia Renal cyst Hematuria of unknown cause Smoker Arthritis Back pain Diabetes GERD (gastroesophageal reflux disease) Fibromyalgia Anxiety and depression MARK on CPAP Chronic sinusitis Asthma Elevated cholesterol HTN (hypertension) Surgical History Hx of cystoscopy S/P lumpectomy of breast (04/20/21) Hx of colonoscopy Hx of dilation and curettage H/O tubal ligation History of skin graft Family History Family History Father No problems noted. Mother No problems noted. 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 No acute distress.?Normal affect. Eyes: Pupils equal, round and reactive to light.? ENT: Pharynx normal.??TM normal bilaterally. Neck: Normal inspection.? Neck supple.??No cervical adenopathy. Full range of motion. CVS: Heart sounds normal. Normal heart rate and rhythm.? Pulses normal.?? Respiratory: No respiratory distress.? Lung sounds diminished in the right lung base, clear in the right apices, diffuse expiratory wheezing on the left.?? Abdomen: Soft and non-tender. Normoactive bowel sounds. Skin: Skin warm and dry.? Normal skin color.? Extremities: No lower extremity edema.? No calf ttp? Neuro: Moves all extremities spontaneously. Sensation intact bilaterally. No focal neuro deficits. Ambulates with normal steady gait. Course Course Course Narrative: This is a rapid medical exam performed by Madison Grewal NP: Additional HPI, ROS, PE not included below will be deferred to primary provider. Patient is a 64-year-old Turkmen speaking female with history of asymetric septal hypertrophy, AV block, DM, chronic pain, depression, arthritis, fibromyalgia, MARK on CPAP, asthma, HTN presenting with complaint of shortness of breath, body aches, headache, weakness, cough for several days. Went to an ED on 04/18, was prescribed an unknown medication but states it did not help her symptoms. Wheezing throughout. Plan: viral serology, labs, CXR Reevaluation(s) Reevaluation #1: CT revealing multifocal pneumonia, consistent with RSV, however given her past medical history and duration of illness, I will treat prophylactically to cover any bacterial etiology, including Augmentin and azithromycin. Will do a short course of prednisone burst therapy. Ambulatory O2 trial without distress, O2 saturation remaining at 98%. At this time I feel that she is stable for discharge, we discussed strict return precautions. Discussed conservative treatment including rest, hydration, Tylenol as needed for fever and body aches, saline nasal spray, humidifier, [id number] cold medication. Advised to follow-up with primary care provider as needed, discussed reasons to return back to the emergency department. All questions were answered. Patient discharged home in stable condition. Medications Administered Discontinued Medications Generic Name Dose Route Start Last Admin Trade Name Freq PRN Reason Stop Dose Admin Albuterol Sulfate 7.5 mg/ 10 mg 04/24/24 22:03 04/24/24 22:13 Albuterol Sulfate 2.5 mg INHALE 04/24/24 22:04 10 mg ONCE ONE Administration Prednisone 60 mg 04/24/24 21:30 04/24/24 21:35 Prednisone 20 Mg Tablet PO 04/24/24 21:31 60 mg ONCE ONE Administration Medical Decision Making Medical Decision Making MDM Narrative: Patient is a 64-year-old female with past medical history of asymetric septal hypertrophy, AV block, DM, chronic pain, depression, arthritis, fibromyalgia, MARK on CPAP, asthma, HTN, presenting for evaluation of upper respiratory symptoms. Serum labs were obtained prior to my assumption of care, revealing a mild leukocytosis of 12.7 without left shift, no electrolyte derangement, no DELROY, LFTs within normal range. She was no associated chest pain. No lower extremity swelling pain or history of DVT. COVID-19 /influenza testing are negative. RSV testing is positive. At this time history and physical exam not consistent with ACS/PE/pneumonia. CXR does not show evidence of any infiltrate or consolidation. However she states that she has been sick for the better part of 2-3 weeks. On evaluation she has expiratory wheezing primarily on the left. At rest she is able to speak clear full sentences. Overall she appears slightly fatigued nontoxic, afebrile, no tachycardia or tachypnea/hypoxia. Speaking clear full sentences, ambulatory with steady gait. Evaluation of her pharmacy records it is appears as though on 04/19 she received prescription for guaifenesin cough syrup and Tylenol which she states have not helped her symptoms. She continues to feel unwell. Given her duration of illness, and lung sounds, will obtain CT of the chest to evaluate for pneumonia, she will receive nebulizer in the emergency department as well as prednisone, planning for ambulatory O2 trial and re-evaluation. Differential Diagnosis Differential Diagnoses: The differential diagnosis associated with the presentation includes ( See narrative above) Admission/Observation Consideration of admission/observation: Escalation of care including admission/observation considered ( see narrative above) Lab Data MDM Lab Attestation statement: I reviewed the patient's lab results. ( see narrative above) 04/24/24 15:11 04/24/24 15:11 Labs: Lab Results 04/24/24 Range/Units 15:11 WBC 12.7 H (4.8-10.8) X10*3/uL RBC 4.24 (4.20-5.50) X10*6/uL Hgb 13.6 (12.0-16.0) g/dl Hct 39.8 (37.0-47.0) % MCV 93.9 (80.0-98.0) fL MCH 32.1 (27.0-33.0) pg MCHC 34.2 (31.0-35.0) g/dl RDW 13.5 (11.0-16.0) % Plt Count 329 (160-400) X10*3/uL MPV 9.4 (9.4-12.3) fL Immature Gran % (Auto) 0.2 (0.0-0.4) % Neut % (Auto) 54.2 (45-73) % Lymph % (Auto) 32.9 (20-40) % Norman % (Auto) 6.7 (2-11) % Eos % (Auto) 5.6 H (0-4) % Baso % (Auto) 0.4 (0-2) % Lymph # (Auto) 4.2 (1.2-4.9) X10*3/uL Norman # (Auto) 0.9 (0.1-1.2) X10*3/uL Eos # (Auto) 0.7 H (0.0-0.4) X10*3/uL Baso # (Auto) 0.1 (0.0-0.2) X10*3/uL Abs Immat Gran (auto) 0.03 (0.00-0.03) X10*3/uL Absolute Neuts (auto) 6.9 (2.0-8.3) x10*3/uL Absolute Nucleated RBC 0.000 (0.0-0.012) X10*3/uL Nucleated RBC % (auto) 0.0 (0.0-0.2) /100WBC Sodium 140 (135-145) mmol/L Potassium 4.4 (3.3-5.1) mmol/L Chloride 105 (96-108) mmol/L Carbon Dioxide 25 (22-29) mmol/L Anion Gap 14 (12-20) BUN 17 H (9-16) mg/dL Creatinine 0.77 (0.5-1.4) mg/dL Estim Creat Clear Calc 80.3 Estimated GFR > 60 Random Glucose 75 (60-115) mg/dL Calcium 9.8 (8.4-10.2) mg/dL Total Bilirubin 0.3 (0.0-1.0) mg/dL AST 25 (5-31) U/L ALT 21 (0-31) U/L Alkaline Phosphatase 107 (39-117) U/L Total Protein 7.0 (6.5-8.0) g/dL Albumin 3.9 (3.5-5.0) g/dL Influenza Type A (PCR) NEGATIVE (Negative) Influenza Type B (PCR) NEGATIVE (Negative) RSV RNA Qual (PCR) POSITIVE A (Negative) SARS-CoV-2 RNA (RT-PCR) NEGATIVE (Negative) Radiology Impression Discussion of test interpretation with radiology: I have reviewed the radiologist's reading. Radiologist Impression: CT/CT chest wo IV con IMPRESSION: 1. Multifocal scattered groundglass opacities in the lungs bilateral. This is nonspecific but consistent with inflammatory/infectious etiology given patient history. No dense consolidation. XR/XR chest 2V IMPRESSION: No active disease. Prescription Management I considered prescription management with: Pain Medication ( acetaminophen/ibuprofen) Discharge Plan Discharge Clinical Impression: Multifocal pneumonia, Respiratory syncytial virus (RSV) Patient Disposition: Home, Self-Care Instructions: Pneumonia (ED) Additional Instructions: A CT imaging today shows that you have developed pneumonia, in the setting of having an RSV infection. RSV is a common respiratory viruses that causes mild, cold-like symptoms. Typically symptoms resolve in 1-2 weeks. Be sure to get plenty of rest, stay well hydrated drinking plenty of fluids, eat small frequent meals. Tylenol may be used for fever or pain. Saline nasal spray, humidifier may be helpful for nasal congestion. Most people are usually contagious for 3-8 days, however in some infants they may continue to spread the virus even after having symptoms for as long as 4 weeks. As discussed, I have sent prescriptions to your pharmacy, given how long you have been ill for an your past medical history I am also sending a course of antibiotics to treat any bacterial source of the pneumonia, prescription for Augmentin and azithromycin were sent, please take these accordingly as prescribed do not skip any doses or stopped taking early even if you begin to feel better. A short course of prednisone has been sent to your pharmacy, take this daily with food you may start taking this tomorrow as he received a dose in the emergency department today. Use your albuterol inhaler/nebulizer as needed at home for shortness of breath/wheezing. You may return to the emergency department with any new or worsening symptoms or concerns, be sure to monitor for shortness of breath, or difficulty breathing as discussed. Follow-up with your primary care provider as needed. Prescriptions: New prednisone 20 mg tablet 40 mg PO DAILY Qty: 8 0RF azithromycin 250 mg tablet See Rx Instructions .ROUTE .COMPLEX Qty: 6 0RF Rx Instructions: For 250 mg dose pack: take 500 mg today (day 1), then 250 mg for 4 days (days 2-5) amoxicillin-pot clavulanate 875-125 mg tablet 1 tab PO BID Qty: 14 0RF No Action carvedilol 6.25 mg tablet 6.25 mg PO BID Qty: 180 3RF hydrocortisone 2.5 % cream with perineal applicator 1 appl WV BEDTIME PRN (Reason: hemorrhoids) Qty: 30 3RF cyclobenzaprine 5 mg tablet 10 mg PO TID PRN (Reason: muscle spasm) Qty: 10 0RF albuterol sulfate 2.5 mg /3 mL (0.083 %) solution for nebulization 1 amp inhalation Q6H PRN (Reason: Wheezing) albuterol sulfate [ProAir HFA] 90 mcg/actuation HFA aerosol inhaler 2 puff inhalation Q4-6H PRN (Reason: Wheezing) fluticasone propionate [Flonase Allergy Relief] 50 mcg/actuation spray,suspension 2 spray intranasal DAILY cholecalciferol (vitamin D3) [Vitamin D3] 25 mcg (1,000 unit) capsule 1 cap PO QAM cyclosporine [Restasis] 0.05 % dropperette 1 drp ophthalmic (eye) BID atorvastatin [Lipitor] 40 mg tablet 40 mg PO BEDTIME aspirin [Adult Low Dose Aspirin] 81 mg tablet,delayed release (DR/EC) 81 mg PO DAILY cetirizine [Allergy Relief (cetirizine)] 10 mg tablet 10 mg PO QAM gabapentin [Neurontin] 300 mg capsule 600 mg PO TID glipizide 10 mg tablet 10 mg PO QAM omeprazole 20 mg capsule,delayed release(DR/EC) 20 mg PO QAM Januvia 50 mg tablet 50 mg PO QAM loratadine [Claritin] 10 mg tablet 10 mg PO DAILY PRN (Reason: allergies) celecoxib [Celebrex] 200 mg capsule 200 mg PO QAM nifedipine 60 mg tablet extended release 24hr 60 mg PO DAILY losartan 100 mg tablet 100 mg PO QAM naloxone 4 mg/actuation spray,non-aerosol 1 spray intranasal DAILY PRN (Reason: Opioid Overdose) oxycodone-acetaminophen [Endocet] 5-325 mg tablet 1 tab PO BID PRN (Reason: pain (scale score 7-10)) (DME) lancets [TRUEplus Lancets] 33 gauge misc See Rx Instructions Not Applicable BID Qty: 100 Rx Instructions: As directed duloxetine [Cymbalta] 30 mg capsule,delayed release(DR/EC) 30 mg PO QPM duloxetine [Cymbalta] 60 mg capsule,delayed release(DR/EC) 60 mg PO QAM fluoride (sodium) [SF 5000 Plus] 1.1 % cream 1 appl dental BID hydrochlorothiazide 12.5 mg tablet 12.5 mg PO QAM ketoconazole 2 % shampoo 1 appl topical BID risperidone [Risperdal] 2 mg tablet 2 mg PO BEDTIME metformin 1,000 mg tablet 1,000 mg PO BID Jardiance 25 mg tablet 25 mg PO QAM Myrbetriq 50 mg tablet extended release 24 hr 50 mg PO DAILY Qty: 90 2RF hydroxyzine HCl 50 mg tablet 50 mg PO BEDTIME Qty: 90 2RF Trulicity 1.5 mg/0.5 mL pen injector subcut QWEEK bisacodyl [Dulcolax (bisacodyl)] 10 mg suppository 10 mg W[place] DAILY PRN (Reason: constipation) Qty: 20 2RF docusate sodium [Colace] 100 mg capsule 200 mg PO BEDTIME 30 Days Qty: 60 5RF polyethylene glycol 3350 [Miralax] 17 gram/dose powder 17 g PO DAILY Qty: 510 6RF Metamucil 3.4 gram/5.4 gram powder 1 tbsp PO DAILY 30 Days Qty: 660 5RF Rx Instructions: mix into at least 8 oz of water or juice before administering Referrals: Pretty Molina MD [Primary Care Provider] - Print Language: Turkmen
[2024-04-24 13:50] VITALS: BP 137/112; PULSE 62; RESP 18; TEMP 37.1; O2SAT 97; BMI 38.3
[2024-04-24 15:14] LABS: MANUAL DIFF FLAG NO
[2024-04-24 15:16] LABS: Basophils Absolute Auto 0.1 X10*3/uL (0.0-0.2); Basophils Percent Auto 0.4 % (0-2); Eosinophils Absolute Auto 0.7 X10*3/uL (0.0-0.4); Eosinophils Percent Auto 5.6 % (0-4); Hematocrit 39.8 % (37.0-47.0); Hemoglobin 13.6 g/dl (12.0-16.0); Imm Gran Abs Auto 0.03 X10*3/uL (0.00-0.03); Imm Gran Pct Auto 0.2 % (0.0-0.4); Lymphocytes Absolute Auto 4.2 X10*3/uL (1.2-4.9); Lymphocytes Percent Auto 32.9 % (20-40); Mean Corpuscular HGB Conc 34.2 g/dl (31.0-35.0); Mean Corpuscular Hemoglobin 32.1 pg (27.0-33.0); Mean Corpuscular Volume 93.9 fL (80.0-98.0); Mean Platelet Volume 9.4 fL (9.4-12.3); Monocytes Absolute Auto 0.9 X10*3/uL (0.1-1.2); Monocytes Percent Auto 6.7 % (2-11); Neutrophils Absolute Auto 6.9 x10*3/uL (2.0-8.3); Neutrophils Percent Auto 54.2 % (45-73); Platelet Count 329 X10*3/uL (160-400); Red Blood Count 4.24 X10*6/uL (4.20-5.50); Red Cell Distribution Width 13.5 % (11.0-16.0); White Blood Count 12.7 X10*3/uL (4.8-10.8)
[2024-04-24 15:29] LABS: Alanine Aminotransferase 21 U/L (0-31); Albumin Level 3.9 g/dL (3.5-5.0); Alkaline Phosphatase 107 U/L (39-117); Anion Gap 14 (12-20); Aspartate Amino Transferase 25 U/L (5-31); Bilirubin Total 0.3 mg/dL (0.0-1.0); Blood Urea Nitrogen 17 mg/dL (9-16); Calcium 9.8 mg/dL (8.4-10.2); Carbon Dioxide 25 mmol/L (22-29); Chloride 105 mmol/L (96-108); Creatinine Clr Calc Pharmacy 80.3; Estimated Glomerular Filt Rate > 60; Glucose Random 75 mg/dL (60-115); Potassium 4.4 mmol/L (3.3-5.1); Sodium 140 mmol/L (135-145)
[2024-04-24 15:53] LABS: Influenza A PCR NEGATIVE (Negative); Influenza B PCR NEGATIVE (Negative); Resp Syncy Virus RNA Qual PCR POSITIVE (Negative); SARS COV2 PCR INHOUSE NEGATIVE (Negative)
[2024-04-24 20:55] VITALS: BP 154/69; PULSE 67; RESP 16; TEMP 37.4; O2SAT 98
[2024-04-24] MEDS: predniSONE 20 MG TABLET 60 MG PO (21:35)
[2024-04-24 22:01] VITALS: PULSE 80; RESP 18; O2SAT 99
[2024-04-24 22:02] VITALS: BP 121/52; PULSE 63; RESP 16; TEMP 36.9; O2SAT 99
[2024-04-24] MEDS: Albuterol Sulfate 7.5 MG, Albuterol Sulfate (0.083%) 2.5 MG 10 MG INHALE (22:13)
[2024-04-24 22:26] VITALS: O2SAT 98
--- NOTE | 2024-04-24 22:26 | PC.NURSE ---
Breathing treatment complete; ambulation trial completed, oxygen saturation remained 98% and greater for the entire duration of the ambulation trial
[2024-04-25] MEDS: Amoxicillin/Potassium Clav 875 MG TABLET PO (00:04)
[2024-04-25 00:06] VITALS: BP 121/52; PULSE 63; RESP 16; TEMP 36.9; O2SAT 98
== END 2024-04-25 00:07 | disposition home or self-care (01) ==
PROVIDERS: Registered Nurse Emergency; Emergency Provider Emergency Medicine; PCP Internal Medicine
DX: J18.9 Pneumonia, unspecified organism (principal); J12.1 Respiratory syncytial virus pneumonia; R05.9 Cough, unspecified; R06.02 Shortness of breath; R51.9 Headache, unspecified; R53.83 Other fatigue; R53.1 Weakness; J45.909 Unspecified asthma, uncomplicated; Z79.899 Other long term (current) drug therapy
CPT/HCPCS: 0241U; 36415; 71046; 71250; 80053; 85025; 94640; 99284

== ENCOUNTER 2024-05-28 15:50 | Outpatient (AMB) | payer MEDICAID, SELFPAY ==
[2024-05-28 15:52] VITALS: BP 144/86; PULSE 76; O2SAT 97; BMI 38.7
--- NOTE | 2024-05-28 15:52 | A.OFFVIS_ITS ---
Vital Signs 05/28/24 15:52 Height 5 ft 2 in Weight 211 lb 10.3 oz BMI 38.7 BP 144/86 H Blood Pressure Location Rt radial Position Sitting Pulse 76 Pulse Source Pulse Oximeter Pulse Oximetry (%) 97 Oxygen Delivery Method Room Air Comment R Radial per pt request. Intake Visit Reasons: Chronic Constipation/ Billie pt Intake Note: ESTABLISHED PATIENT Violet presents in office today for a scheduled FUV to re-establish care. Pt prev saw SYEDA. Meds and Allergies reviewed? Y No recent or relevant surgeries? N Any significant concerns or new changes? No significant changes or concerns at this time. Pharmacy verified? [facility] Pharmacy. Complex Director Required: Yes Complex Director Services: Complex Director Present Complex Director Name: Mary [id number] Information Interpreted: non-clinical & clinical Allergies morphine [MORPHINE] Allergy (Unknown, Verified 05/28/24 16:01) UNKNOWN HPI Comments Details: 64 y.o F who is here to discuss repeat colo - as previous colo was poor prep. Pt seen with conference interpreter. Pt reports constipation at baseline. Has to take bisacodyl and miralax 2-3 times a week to ensure daily BMs. Otherwise has hard stools that she has to strain for. Otherwise has no abd pain, N/V,D. No blood in stool. No fam hx of crc. Smokes 5-6 cigs/day. No etOH use. Last colo September 2023 - R colon not visualised. TA in transverse colon. Pt also reports lower back pain in lumbar area that is worse in the mornings, unchanged with BMs. PMH: septal hypertrophy, HTN, DM PFSH Medical History Asymmetric septal hypertrophy Heart block atrioventricular Chronic pain Depression Vascular insufficiency Lichen Hip pain Foot pain Foot callus Cubital tunnel syndrome Chronic vulvovaginitis Carpal tunnel syndrome Burn scar contracture of upper arm Blurring of visual image Mood disorder Hyperlipidemia Renal cyst Hematuria of unknown cause Smoker Arthritis Back pain Diabetes GERD (gastroesophageal reflux disease) Fibromyalgia Anxiety and depression MARK on CPAP Chronic sinusitis Asthma Elevated cholesterol HTN (hypertension) Surgical History Hx of cystoscopy S/P lumpectomy of breast (04/20/21) Hx of colonoscopy Hx of dilation and curettage H/O tubal ligation History of skin graft Family History Father No problems noted. Mother No problems noted. 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 Female Reproductive History Menstrual Age of Menarche: 14 Review of Systems Const All systems reviewed & are unremarkable except as noted in HPI and below Physical Exam Vital Signs: Last Vital Signs Pulse 76 05/28/24 15:52 BP 144/86 H 05/28/24 15:52 Pulse Ox 97 05/28/24 15:52 Oxygen Delivery Method Room Air 05/28/24 15:52 BMI result Body Mass Index 38.7 No apparent distress Nonicteric Abdomen soft, nondistended Alert and oriented x3, normal gait Assessment & Plan Assessment & Plan (1) Tubular adenoma: Code(s): D36.9 - Benign neoplasm, unspecified site Category: Medical (2) Hemorrhoids: Code(s): K64.9 - Unspecified hemorrhoids Category: Medical (3) Low back pain: Code(s): M54.50 - Low back pain, unspecified Category: Medical (4) Diabetes: Code(s): E11.9 - Type 2 diabetes mellitus without complications Category: Medical Plan 1. Hx of polyps Repeat colo will be set up. Detailed instructions reviewed in English with the pt including hte need to hold trulicity and jardiane. PEG prep sent to pharmacy 2. LBP Educated pt that likely not GI related. Encouraged to discuss mgmt with PCP. Follow up after colo Medications: New peg 3350-electrolytes 236-22.74-6.74 -5.86 gram (Golytely) as per split prep instructions, until fecal effluent is clear 240 mL PO Q10M 4,000 mL 0RF colonoscopy Coding Level of Care Code Est Pt Level 4 (89534) Diagnoses Tubular adenoma D36.9 Hemorrhoids K64.9 Low back pain M54.50 Diabetes E11.9
== END 2024-05-30 09:30 | disposition home or self-care (01) ==
PROVIDERS: PCP Internal Medicine; Visit Provider Internal Medicine
DX: D36.9 Benign neoplasm, unspecified site (principal); K64.9 Unspecified hemorrhoids; M54.50 Low back pain, unspecified; E11.9 Type 2 diabetes mellitus without complications
CPT/HCPCS: 99214

== ENCOUNTER → 2024-05-28 15:50 | Outpatient (BNVA) | payer MEDICAID, SELFPAY | PROVIDERS: PCP Internal Medicine; Visit Provider Internal Medicine | DX: K59.09 Other constipation (principal); K64.9 Unspecified hemorrhoids; M54.50 Low back pain, unspecified; D36.9 Benign neoplasm, unspecified site; E11.9 Type 2 diabetes mellitus without complications | CPT/HCPCS: 99212 ==

== ENCOUNTER 2024-07-11 14:53 | Outpatient (AMB) | payer MEDICAID, SELFPAY ==
--- NOTE | 2024-07-11 15:11 | MHC.OFFVIS ---
Intake Visit Reasons: US follow up/DO NOT RS Director Product Management Required: Yes Director Product Management Language: Right Of Way Man Services: Director Product Management Present ([employer]) Director Product Management Name: Arianna [id number] Information Interpreted: clinical only Accompanied by: Self / Same As Patient Allergies morphine [MORPHINE] Allergy (Unknown, Verified 07/11/24 15:15) UNKNOWN HPI Comments Details: Presenting for ultrasound follow-up which showed the following: Uterus: The uterus is anteverted and measures 7.4 x 2.9 x 3.7 cm. The double wall endometrial thickness is 6 mm. The uterus is smooth in contour and has normal myometrial echogenicity. There is a 1.0 x 1.4 x 1.3 cm fibroid at the fundus on the left. Nabothian cysts are present in the cervix, some complex Adnexa: The right ovary measures 2.4 x 0.8 x 1.7 cm for a volume 1.8 cc and contains a few punctate calcifications. Left ovary was not seen. [facility] Medical History Asymmetric septal hypertrophy Heart block atrioventricular Chronic pain Depression Vascular insufficiency Lichen Hip pain Foot pain Foot callus Cubital tunnel syndrome Chronic vulvovaginitis Carpal tunnel syndrome Burn scar contracture of upper arm Blurring of visual image Mood disorder Hyperlipidemia Renal cyst Hematuria of unknown cause Smoker Arthritis Back pain Diabetes GERD (gastroesophageal reflux disease) Fibromyalgia Anxiety and depression MARK on CPAP Chronic sinusitis Asthma Elevated cholesterol HTN (hypertension) Surgical History Hx of cystoscopy S/P lumpectomy of breast (04/20/21) Hx of colonoscopy Hx of dilation and curettage H/O tubal ligation History of skin graft Family History Father No problems noted. Mother No problems noted. 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 Female Reproductive History Menstrual Age of Menarche: 14 Review of Systems Const All systems reviewed & are unremarkable except as noted in HPI and below Reports as per HPI and Reports no additional complaints GI Reports no additional complaints Reports no additional complaints Assessment & Plan Assessment & Plan (1) Uterine myoma: Code(s): D25.9 - Leiomyoma of uterus, unspecified Category: Medical Plan: Discussed with the patient the findings on pelvic ultrasound & the risk of myosarcoma; discussed with the patient the options of treatment including expectant management versus hysterectomy; the pros and cons, risks benefits of each approach were discussed with the patient including the fact that in cases of myosarcoma, surgical treatment can lead to early diagnosis and positively affects the prognosis; after further discussion, the patient decided to proceed with expectant management. Will repeat pelvic ultrasound periodically. Instructions given to patient to call in case any of the following occurs: pressure symptoms, abnormal uterine bleeding, pelvic pain; and to schedule a 3-months pelvic ultrasound (order placed) and a follow-up appointment . All questions answered, the patient verbalized understanding and agreed with the plan . (2) Thickened endometrium: Code(s): R93.89 - Abnormal findings on diagnostic imaging of other specified body structures Category: Medical Plan: Discussed with the patient endometrial thickness above 4 mm in menopause , the differential diagnosis of a thickened endometrium includes but not limited to endometrial polyp, hyperplasia or carcinoma. Explained to the patient that endometrial each thickness is less predictive of endometrial neoplasia in asymptomatic patients, i.e. those without postmenopausal uterine bleeding. The sensitivity and specificity for detecting endometrial carcinoma at an endometrial thickness of >= 5mm was 83 and 72 percent, respectively; this is lower than in patients with bleeding. Studies have shown that postmenopausal patients without uterine bleeding who had an endometrial thickness >11 mm had an endometrial carcinoma risk of 6.7 percent; this risk is similar to postmenopausal patients with bleeding and an endometrial thickness >5 mm. Recommended endometrial sampling to rule endometrial pathology via either office endometrial biopsy or diagnostic hysteroscopy/D&C with possible polypectomy/myomectomy. All pros and cons, risks and benefits of each approach were discussed with the patient, the patient decided to proceed with endometrial biopsy. Instructions given the patient to schedule an EMB appointment within 2 weeks. All questions answered, the patient verbalized Orders: Orders US pelvic and transvaginal Today D25.9 - Leiomyoma of uterus, unspecified Coding Level of Care Code Est Pt Level 3 (65100) Diagnoses Uterine myoma D25.9 Thickened endometrium R93.89
--- OUTSIDE RECORDS SUMMARY | 2024-07-11 17:00 | XMS_ITS | Encounter Summary ---
Author Organization [employer] Address [address] [facility] 7t [place] [address] Care Team Providers Care Contract Coordinator Name Role Phone Pretty Molina MD Primary Care Provide r Reason for Visit * Reason Comments Med Refill Encounter Details Date Type Department Care Team (Late st Contact Info) Description 07/01/2024 Refill [facility] [address] [place] [address] Keysha Nagel, ERIC [address] [place] [address] Social History Tobacco Use Types Packs/Day Years Used Date Smoking Tobacco: Some Days Cigarettes Passive Smoke Exposure: Current Smokeless Tobacco: Never Alcohol Use Standard Drinks/Week Comments Not Currently 0 (1 standard drink = 0.6 oz pur e alcohol) Depression Answer Date Recorded Patient Health Questionnaire-9 Score 4 01/06/2024 Patient Health Questionnaire-9 Score 4 01/06/2024 Last PHQ-9: Questionnaire Data Not on file 0 01/06/2024 Housing Stability Answer Date Recorded What is your housing situation today? I have krystian rascon 12/28/[address] you li ve. Do you have problems with any of the following? None of the above 12/28/2023 Food Insecurity Answer Date Recorded Within the past 12 months, y ou worried that your food would run out before you got money to buy more: Never True 12/28/2023 Within the past 12 months,th e food you bought just didn't last and you didn't have enough money to get more: Never True Transportation Answer Date Recorded In the past 12 months, has l ack of transportation kept you from medical appts, meetings, work or from getting things needed for daily living? No 12/28/2023 Utilities Answer Date Recorded In the past 12 months, has t he electric, gas, oil or water company threatened to shut off services in your home? No 12/28/2023 Depression Answer Date Recorded Patient Health Questionnaire-2 Score 2 01/06/2024 Internet Access Answer Date Recorded Internet Access Q1 Yes 02/13/2024 Internet Access Q2 Not on file 02/13/2024 Comments No Sex and Gender Information Value Date Recorded Sex Assigned at Female 04/12/2022 10:19 AM EDT Legal Sex Female 10:19 AM EDT Gender Identity Female 04/12/2022 10:19 AM EDT Sexual Orientation Straight 04/12/2022 10 :19 AM EDT documented as of this encounter Plan of Treatment Upcoming Encounters Date Type Department Care Team (Late st Contact Info) Description 07/23/2024 1:00 PM EST Medication Management [address] [address] Guero Burns, PharmD [address] [place] [phone] 10/04/2024 1:00 PM EDT Clinical Support [address] [address] Sandra Boyd, RN documented as of this encounter Visit Diagnoses Not on filedocumented in this encounter Additional Health Concerns Assessment Noted Time PHQ-9 Depression Total Score: 4 01/06/20 24 2:22 PM EDT documented as of this encounter Care Teams Contract Coordinator Relationship Specialty Start Date End Date Pretty Molina MD [address] [place] [phone] PCP - General Family Medicine 12/24/20 documented as of this encounter
--- OUTSIDE RECORDS SUMMARY | 2024-07-11 17:00 | XMS_ITS | Encounter Summary ---
Author Organization [employer] Address [address] [facility] 7t [place] [address] Care Team Providers Care Ink Technician Name Role Phone Pretty Molina MD Primary Care Provide r Encounter Details Date Type Department Care Team (Late st Contact Info) Description 07/01/2022 Orders Only [facility] [address] [place] [address] Marti Cedillo RN Chronically on opiate therapy (Primary Dx) Social History Tobacco Use Types Packs/Day Years Used Date Smoking Tobacco: Never Assessed Comments Unknown Sex and Gender Information Value Date Recorded Sex Assigned at Female 04/12/2022 10:19 AM EDT Legal Sex Female 10:19 AM EDT Gender Identity Female 04/12/2022 10:19 AM EDT Sexual Orientation Straight 04/12/2022 10 :19 AM EDT documented as of this encounter Plan of Treatment Upcoming Encounters Date Type Department Care Team (Late st Contact Info) Description 07/23/2024 1:00 PM EST Medication Management [address] [address] Guero Burns, PoloD [address] [place] [address] 10/04/2024 1:00 PM EDT Clinical Support [address] [address] Snadra Boyd RN documented as of this encounter Visit Diagnoses Diagnosis Chronically on opiate therapy- Primary documented in this encounter Care Teams Ink Technician Relationship Specialty Start Date End Date Pretty Molina MD [address] [place] [address] PCP - General Family Medicine 12/24/20 documented as of this encounter
--- OUTSIDE RECORDS SUMMARY | 2024-07-11 17:00 | XMS_ITS | Encounter Summary ---
Author Organization [employer] Address [address] [facility] 7t [place] [address] Care Team Providers Care It Programmer Analyst Name Role Phone Pretty Molina MD Primary Care Provide r Reason for Visit * Reason Comments Med Refill Encounter Details Date Type Department Care Team (Late st Contact Info) Description 06/25/2024 Refill [facility] [address] [place] [address] Pretty Molina MD [address] [place] [address] Primary hypertension Social History Tobacco Use Types Packs/Day Years [...] Description 07/23/2024 1:00 PM EST Medication Management [address] [address] Guero Burns, PharmD [address] [place] [address] 10/04/2024 1:00 PM EDT Clinical Support [address] [address] Sandra Boyd, RN documented as of this encounter Visit Diagnoses Diagnosis Primary hypertension Unspecified essential hypertension documented in this encounter Additional Health Concerns Assessment Noted Time PHQ-9 Depression Total Score: 4 01/06/20 24 2:22 PM EDT documented as of this encounter Care Teams It Programmer Analyst Relationship Specialty Start Date End Date Pretty Molina MD [address] [place] [address] PCP - General Family Medicine 12/24/20 documented as of this encounter
--- OUTSIDE RECORDS SUMMARY | 2024-07-11 17:00 | XMS_ITS | Encounter Summary ---
Author Organization [employer] Address [address] [facility] 7t [place] [address] Care Team Providers Care Staffing Administrator Name Role Phone Pretty Molian MD Primary Care Provide r Encounter Details Date Type Department Care Team ([facility] Contact Info) Description 09/01/2022 Orders Only [facility] [address] [place], [place] [phone] Jocelyn Fleming LPN Social History Tobacco Use Types Packs/Day Years Used Date Smoking Tobacco: Never Smokeless Tobacco: Never Comments Unknown Sex and Gender Information Value Date Recorded Sex Assigned at Female 04/12/2022 10:19 AM EDT Legal Sex Female 10:19 AM EDT Gender Identity Female 04/12/2022 10:19 AM EDT Sexual Orientation Straight 04/12/2022 10 :19 AM EDT COVID-19 Exposure Response Date Recorded In the last 10 days, have yo u been in contact with someone who was confirmed or suspected to have Coronavirus/COVID-19? No / Unsure 08/31/2022 12:01 PM EDT documented as of this encounter Plan of Treatment Upcoming Encounters Date Type Department Care Team (Late st Contact Info) Description 07/23/2024 1:00 PM EST Medication Management [facility] [address] [place] [address] Guero Burns, PoloD [address] [place] [address] 10/04/2024 1:00 PM EDT Clinical Support [facility] [address] [place] [address] Sandra Boyd, RN documented as of this encounter Visit Diagnoses Not on filedocumented in this encounter Care Teams Staffing Administrator Relationship Specialty Start Date End Date Pretty Molina MD [address] [place] [address] PCP - General Family Medicine 12/24/20 documented as of this encounter
--- OUTSIDE RECORDS SUMMARY | 2024-07-11 17:00 | XMS_ITS | Encounter Summary ---
Author Organization [employer] Address [address] [facility] 7t [place] [address] Care Team Providers Care Rn Occupational Health Name Role Phone Pretty Molina MD Primary Care Provide r Reason for Visit * Reason Onset Date Comments Med Refill 07/09/2024 Encounter Details Date Type Department Care Team (Late st Contact Info) Description 07/09/2024 Refill [facility] [address] [place] [address] Pretty Molina MD [address] [place] [address] Other chronic pain Social History Tobacco Use Types Packs/Day Years [...] AM EDT documented as of this encounter Miscellaneous Notes * Telephone Encounter - Anastacio Montano - 07/09/2024 9:00 AM EST TC from pt requesting medication refill. Medications needing refill: oxyCODONE-acetaminophen (Percocet) 5-325 MG tablet To be sent to: [facility] - [place], [place] - [address] [place] [address] documented in this encounter Plan of Treatment Upcoming Encounters Date Type Department Care Team ([facility] st Contact Info) Description 07/23/2024 1:00 PM EST Medication Management [facility] [address] [place] [address] Guero Burns, PharmD [address] [place] [address] 10/04/2024 1:00 PM EDT Clinical Support [address] [address] Sandra Boyd, TONY documented as of this encounter Visit Diagnoses Diagnosis Other chronic pain documented in this encounter Additional Health Concerns Assessment Noted Time PHQ-9 Depression Total Score: 4 01/06/20 24 2:22 PM EDT documented as of this encounter Care Teams Rn Occupational Health Relationship Specialty Start Date End Date Pretty Molina MD [address] [place] [address] PCP - General Family Medicine 12/24/20 documented as of this encounter
--- OUTSIDE RECORDS SUMMARY | 2024-07-11 17:00 | XMS_ITS | Encounter Summary ---
Author Organization [employer] Address [address] [facility] 7t [place] [address] Care Team Providers Care Lever Tender Name Role Phone Pretty Molina MD Primary Care Provide r Encounter Details Date Type Department Care Team (Late st Contact Info) Description 07/12/2022 Orders Only [facility] [address] [place], [place] [phone] Jocelyn Fleming LPN Social History Tobacco Use [...] Description 07/23/2024 1:00 PM EST Medication Management [address] [address] Guero Burns, PharmD [address] [place] [address] 10/04/2024 1:00 PM EDT Clinical Support [address] [phone] Sandra Boyd, RN documented as of this encounter Visit Diagnoses Not on filedocumented in this encounter Care Teams Lever Tender Relationship Specialty Start Date End Date Pretty Molina MD [address] [place] [phone] PCP - General Family Medicine 12/24/20 documented as of this encounter
--- OUTSIDE RECORDS SUMMARY | 2024-07-11 17:01 | XMS_ITS | Encounter Summary ---
Author Organization [email or web address] Address [address] [facility] 7t [place] [address] Care Team Providers Care Cardiopulmonary Technologist Name Role Phone Pretty Molina MD Primary Care Provide r Encounter Details Date Type Department Care Team (Latest Contact Info) Description 2019 Abstract [facility] CONVERSIONS Dental, Provider, DDS Social History Tobacco Use Types Packs/Day Years [...] Description 07/23/2024 1:00 PM EST Medication Management [facility] [address] [place] [phone] Guero Burns, PoloD [address] [place] [address] 10/04/2024 1:00 PM EDT Clinical Support [facility] [address] [place] [phone] Sandra Boyd, TONY documented as of this encounter Visit Diagnoses Not on filedocumented in this encounter Care Teams Cardiopulmonary Technologist Relationship Specialty Start Date End Date Pretty Molina MD [address] [place] [address] PCP - General Family Medicine 12/24/20 documented as of this encounter
--- OUTSIDE RECORDS SUMMARY | 2024-07-11 17:01 | XMS_ITS | Encounter Summary ---
Author Organization [employer] Address [address] [facility] [address]t [place] [address] Care Team Providers Care Hair Spinning Machine Operator Name Role Phone Pretty Molina MD Primary Care Provide r Reason for Visit * Reason Comments Med Refill Encounter Details Date Type Department Care Team (Late st Contact Info) Description 06/20/2024 Refill [facility] MEDICINE [address] [place] [address] Noemi Schwartz MD [address] [place] [address] Seasonal allergies Social History Tobacco Use Types Packs/Day Years [...] 07/23/2024 1:00 PM EST Medication Management [address] [address] Guero Burns, PharmD [address] [place] [phone] 10/04/2024 1:00 PM EDT Clinical Support [address] [address] Sandra Boyd, TONY documented as of this encounter Visit Diagnoses Diagnosis Seasonal allergies Allergic rhinitis, cause unspecified documented in this encounter Additional Health Concerns Assessment Noted Time PHQ-9 Depression Total Score: 4 01/06/20 24 2:22 PM EDT documented as of this encounter Care Teams Hair Spinning Machine Operator Relationship Specialty Start Date End Date Pretty Molina MD [address] [place] [phone] PCP - General Family Medicine 12/24/20 documented as of this encounter
--- OUTSIDE RECORDS SUMMARY | 2024-07-11 17:01 | XMS_ITS | Encounter Summary ---
Author Organization [employer] Address 75 [facility] 7t [place] [address] Care Team Providers Care Property Worker Name Role Phone Pretty Molina MD Primary Care Provide r Reason for Visit * Reason Comments Med Refill Encounter Details Date Type Department Care Team (Late st Contact Info) Description 06/16/2024 Refill [facility] MEDICINE 230 [place], [place] [phone] Pretty Molina MD 230 [place], [place] [phone] Neuropathy Social History Tobacco Use Types Packs/Day Years [...] Description 07/23/2024 1:00 PM EST Medication Management [address] [address] Guero Burns, PharmD [address] [place] [address] 10/04/2024 1:00 PM EDT Clinical Support [address] [address] Sandra Boyd, TONY documented as of this encounter Visit Diagnoses Diagnosis Neuropathy Mononeuritis of unspecified site documented in this encounter Additional Health Concerns Assessment Noted Time PHQ-9 Depression Total Score: 4 01/06/20 24 2:22 PM EDT documented as of this encounter Care Teams Property Worker Relationship Specialty Start Date End Date Pretty Molina MD [address] [place] [phone] PCP - General Family Medicine 12/24/20 documented as of this encounter
--- OUTSIDE RECORDS SUMMARY | 2024-07-11 17:01 | XMS_ITS | Encounter Summary ---
Author Organization [employer] Address 75 [facility] 7t [place] [address] Care Team Providers Care Curriculum Facilitator Name Role Phone Pretty Molina MD Primary Care Provide r Reason for Visit * Reason Comments Med Refill Encounter Details Date Type Department Care Team (Late st Contact Info) Description 05/12/[address] [facility] MED & PEDS [address] [place], [place] [phone] Pretty Molina MD 230 [place] [address] Neuropathy Social History Tobacco Use Types Packs/Day Years Used Date Smoking Tobacco: Never Smokeless Tobacco: Never Alcohol Use Standard Drinks/Week Comments Not Currently 0 (1 standard drink = 0.6 oz pur e alcohol) Depression Answer Date Recorded Patient Health Questionnaire-9 Score 12 11/24/2022 Housing Stability Answer Date Recorded What is your housing situation today? I have krystian rascon 03/30/[address] you li ve. Do you have problems with any of the following? None of the above 03/30/2023 Food Insecurity Answer Date Recorded Within the past 12 months, y ou worried that your food would run out before you got money to buy more: Never True 03/30/2023 Within the past 12 months,th e food you bought just didn't last and you didn't have enough money to get more: Never True Transportation Answer Date Recorded In the past 12 months, has l ack of transportation kept you from medical appts, meetings, work or from getting things needed for daily living? No 03/30/2023 Utilities Answer Date Recorded In the past 12 months, has t he electric, gas, oil or water company threatened to shut off services in your home? No 03/30/2023 Depression Answer Date Recorded Patient Health Questionnaire-2 Score 4 11/24/2022 Comments No Sex and Gender Information Value [...] Description 07/23/2024 1:00 PM EST Medication Management [address] [address] Guero Burns, PharmD [address] [place] [phone] 10/04/2024 1:00 PM EDT Clinical Support [address] [address] Sandra Boyd, TONY documented as of this encounter Visit Diagnoses Diagnosis Neuropathy Mononeuritis of unspecified site documented in this encounter Additional Health Concerns Assessment Noted Time PHQ-9 Depression Total Score: 12 023 3:08 PM EDT documented as of this encounter Care Teams Curriculum Facilitator Relationship Specialty Start Date End Date Pretty Molina MD [address] [place] [phone] PCP - General Family Medicine 12/24/20 documented as of this encounter
--- OUTSIDE RECORDS SUMMARY | 2024-07-11 17:01 | XMS_ITS | Encounter Summary ---
Author Organization [employer] Address [address] [facility] 7t [place] [address] Care Team Providers Care Filteration Operator Name Role Phone Pretty Molina MD Primary Care Provide r Reason for Visit * Reason Comments Med Refill Encounter Details Date Type Department Care Team (Late st Contact Info) Description 05/09/2023 Refill [facility] MEDICINE 230 [place], [place] [phone] Pretty Molina MD 230 [place], [place] [phone] Other chronic pain Social History Tobacco Use [...] Description 07/23/2024 1:00 PM EST Medication Management [facility] MEDICINE [address] [place] [phone] Guero Burns, PharmD [address] [place] [address] 10/04/2024 1:00 PM EDT Clinical Support [address] [address] Sandra Boyd, RN documented as of this encounter Visit Diagnoses Diagnosis Other chronic pain documented in this encounter Additional Health Concerns Assessment Noted Time PHQ-9 Depression Total Score: 12 023 3:08 PM EDT documented as of this encounter Care Teams Filteration Operator Relationship Specialty Start Date End Date Pretty Molina MD [address] [place] [phone] PCP - General Family Medicine 12/24/20 documented as of this encounter
--- OUTSIDE RECORDS SUMMARY | 2024-07-11 17:01 | XMS_ITS | Clinical Summary ---
Author Organization [facility] Address [address] [place] [address] Phone Care Team Providers Care Flask Fitter Name Role Phone Pretty Molina MD Primary Care Provide r Allergies No known active allergies Medications Medication Sig Dispensed Refills Start Date End Date Status albuterol HFA (PROAIR HFA ; PROVENTIL HFA ; VENTOLIN HFA) 90 mcg/actuation inhaler Inhale 2 Puffs into the lungs every 4 hours as needed. Active ammonium lactate (AMLACTIN) 12 % cream Apply topically 2 times daily as needed. Active ammonium lactate (LAC-HYDRIN) 12 % lotion APPLY TO SUNS OF FEET DAILY. EN LA NOCHE UTILIZA MEDIAS PARA DORMIR 10/28/2023 Active aspirin 81 mg EC tablet Take 81 mg by mouth daily. Active atorvastatin (LIPITOR) 40 mg tablet Take 40 mg by mouth daily. Active clonazePAM (KlonoPIN) 1 mg disintegrating tablet Take 1 mg by mouth 2 times daily as needed. Active clotrimazole (LOTRIMIN) 1 % cream Apply topically 2 times daily. Active clotrimazole-betametha sone (LOTRISONE) 1-0.05 % cream Apply topically to affected area twice daily for no more than 10 days 01/16/2019 Active citrate dextrose (ACD-A) 2.45-2.2 gram- 730 mg/100 mL solution Take 4 g by mouth. Active econazole nitrate (ECONAZOLE TOP) Apply topically. Act junior docusate sodium (COLACE) 100 mg capsule Take 100 mg by mouth 2 times daily. Active ceramide 1,3,9-GL-xqdg-hyalur (CeraVe PM) lotion,extended release Apply topically. Active colloidal oatmeaL 1 % cream Apply topically. Active ARTIFICIAL TEARS,HYPROMELLOSE, OPHT apply to the eye. Active estradioL (ESTRACE) 0.01 % (0.1 mg/gram) vaginal cream Place 1 g vaginally at bedtime. Active fluocinonide (LIDEX) 0.05 % gel Apply topically 2 times daily. Active gabapentin (NEURONTIN) 300 mg capsule Take 300 mg by mouth 2 times daily. Active glipiZIDE (GLUCOTROL) 5 mg tablet Take 5 mg by mouth 2 times daily (before meals). Active hydroCHLOROthiazide (HYDRODIURIL) 25 mg tablet Take 25 mg by mouth daily. Active hydrOXYzine pamoate (VISTARIL) 50 mg capsule Take 1 Cap by mouth every 6 hours as needed for Itching. 01/16/2019 Active ketoconazole (NIZORAL) 2 % shampoo Apply topically daily as needed. Active loratadine (CLARITIN) 10 mg tablet Take 10 mg by mouth daily. Active losartan (COZAAR) 100 mg tablet Take 100 mg by mouth daily. Active metFORMIN (GLUCOPHAGE) 500 mg tablet Take 500 mg by mouth 2 times daily (with meals). Active NIFEdipine (ADALAT CC) 30 mg 24 hr tablet Take 30 mg by mouth daily. Active omeprazole 20 mg tablet,disintegrat, delay rel Take by mouth. Active oxyCODONE-acetaminophe n (PERCOCET) 5-325 mg per tablet Take 1 tablet by mouth every 4 hours as needed. Active risperiDONE (RisperDAL) 1 mg tablet Take 1 mg by mouth 2 times daily. Active miscellaneous medical supply mis by Does not apply route. Active NICOTINE, POLACRILEX, BUCL Take by mouth. Active polyethylene glycol (PEG) 17 gram/dose oral powder Take by mouth. Active sertraline HCl (SERTRALINE ORAL) Take 100 mg by mouth. Active meloxicam (MOBIC) 15 mg tablet Take 1 Tablet by mouth daily. - Oral 03/19/2024 Active diclofenac (VOLTAREN) 1 % topical gel Apply topically. Apply 1 Squirt topically 3 times daily. Apply to affected area - Apply externally 03/19/2024 Active Active Problems Problem Noted Date Diagnosed Date HTN (hypertension) 03/20/2024 IBS (irritable bowel syndrome) 03/20/2024 Chronic pruritus 01/23/2019 Overview (03/20/2024): Had allergy testing completed and was unremarkable Morbid obesity 01/23/2019 Type 2 diabetes mellitus 01/23/2019 Encounters Date Type Department Care Team Description 05/25/2024 Telephone Orthopedic Surgery - [facility] [address] [facility] [address] [place] [address] Maria Isabel More MA from Last 3 Months Surgical History Surgery Date Site/Laterality Comments TUBAL LIGATION PROCEDURE: HISTORICAL TUBAL LIGATION OTHER SURGICAL HISTORY PROCEDURE: IN GRAFT COMPOSITE W/PRIMARY CLOSURE DONOR AREA Medical History Medical History Date Comments HTN (hypertension) DX:HTN (hyper tension) Depression DX:Depression Chronic pain DX:Chronic pain Obesity DX:Obesity 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) Hyperlipidemia DX:Hyperlipidemi a Carpal tunnel syndrome, bilateral DX:Carpal tunnel syndrome, bilateral Type 2 diabetes mellitus (CMS/HCC) DX:Type 2 diabetes mellitus (HCC) IBS (irritable bowel syndrome) D X:IBS (irritable bowel syndrome) Asthma DX:Asthma 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 Family History Medical History Relation Name Comments Hypertension Father Mental illness Father Hypertension Mother Mental illness Mother Relation Name Status Comments Father Mother Social History Tobacco Use Types Packs/Day Years Used Date Smoking Tobacco: Former Smokeless Tobacco: Never Alcohol Use Standard Drinks/Week Comments No 0 (1 standard drink = 0.6 oz pur e alcohol) Sex and Gender Information Value Date Recorded Sex Assigned at Not on file Gender Identity Not on file Sexual Orientation Not on file Job Start Date Occupation Industry Not on file Not on file Not on file Obstetrics History Last Filed Vital Signs Vital Sign Reading Time Taken Comments Blood Pressure - - Pulse - - Temperature - - Respiratory Rate - - Oxygen Saturation - - Inhaled Oxygen Concentration - - Weight 83.9 kg (185 lb) 03/19/2024 1:29 PM EDT Height 165.1 cm (5' 5 ) 03/19/2024 1:29 PM EDT Body Mass Index 30.79 03/19/2024 1:29 PM EDT Plan of Treatment Health Maintenance Due Date Last Done Comments Breast Cancer Screening 1961 Pneumococcal Vaccine: Pediat rics (0 to 5 Years) and At-Risk Patients (6 to 64 Years) (1 of 2 - PCV) 1967 Diabetes: Annual Foot Exam 1971 Diabetes: Annual Retina Eye Exam 1971 DTaP,Tdap,and Td Vaccines (1 - Tdap) 1980 Zoster Vaccines (1 of 2) 2011 RSV Immunization Patients 60 + Years Old (1 - Risk 60-74 years 1-dose series) 2021 Colorectal Cancer Screening: Colonoscopy 05/11/2022 Depression Screening 05/11/2022 HIV Screening 05/11/2022 Hepatitis C Screening 05/11/2022 Social Influencers of Health Screening 05/11/2022 Diabetes: Annual Urine Albumin-Creatinine Ratio (uACR) 05/27/2022 Diabetes: Blood Sugar Contro l Test (HGBA1C) 05/27/2022 07/20/2021 COVID-19 Vaccine ( - 2023-2 5 season) 2024 Influenza Vaccine (#1) 2024 Diabetes: Annual GFR (Glomer ular Filtration Rate) 01/09/2025 01/10/2024 Hypertension/CHF/CAD Annual BMP Blood Test 01/09/2025 01/10/2024 Cervical Cancer Screening: HPV 04/18/2028 04/18/2023 Cholesterol Screening (Lipid Panel) 01/09/2029 01/10/2024 HIB Vaccines Aged Out No longer eligi ble based on patient's age to complete this topic HPV Vaccines Aged Out No longer eligi ble based on patient's age to complete this topic Hepatitis A Vaccines Aged Out No long er eligible based on patient's age to complete this topic Hepatitis B Vaccines Aged Out No long er eligible based on patient's age to complete this topic IPV Vaccines Aged Out No longer eligi ble based on patient's age to complete this topic MMR Vaccines Aged Out No longer eligi ble based on patient's age to complete this topic Meningococcal ACWY Vaccine Aged Out N o longer eligible based on patient's age to complete this topic RSV Immunization Patients Un eleonora 20 months Aged Out No longer eligible b ased on patient's age to complete this topic Varicella Vaccines Aged Out No longer eligible based on patient's age to complete this topic Procedures Procedure Name Priority Date/Time Associated Diagnosis Comments ANNUAL BMP BLOOD TEST Routine 01/10/2024 LIPID PANEL Routine 01/10/2024 HPV Routine 04/18/2023 HEMOGLOBIN A1C Routine 07/20/2021 from Last 3 Months or Most Recently Relevant to Health Maintenance Results * Annual BMP Blood Test (01/10/2024) Pathologist [facility] Annual BMP Blood Test abstracted Historical Provider MD MARY ACOSTA E * Lipid panel (01/10/2024) [facility] Triglycerides 0 mg/dL Comment:no interpretation Cholesterol 0 mg/dL Comment:no interpretation HDL 0 mg/dL Comment:no interpretation LDL Cholesterol 0 mg/dL Comment:no interpretation Blood Venous blood specimen / Unknown Historical Provider LAB BLOOD ORDERAB LES * Cervical Cancer Screening: HPV (04/18/2023) [facility] Cervical Cancer Screening: HPV No interpreta tion,abstr acted Historical Provider MD MARY ACOSTA E * Hemoglobin A1c (07/20/2021) [facility] Hemoglobin A1C 0.0 % Comment:no interpretation Blood Venous blood specimen / Unknown Historical Provider LAB BLOOD ORDERAB LES from Last 3 Months or Most Recently Relevant to Health Maintenance Care Teams Flask Fitter Relationship Specialty Start Date End Date Pretty Molina MD [address] [phone] [facility] - General 06/01/23
--- OUTSIDE RECORDS SUMMARY | 2024-07-11 17:01 | XMS_ITS | Encounter Summary ---
Author Organization [employer] Address [address] [facility] 7t [place] [address] Care Team Providers Care Rhythmic Gymnastics Coach Name Role Phone Pretty Molina MD Primary Care Provide r Reason for Visit * Reason Comments Med Refill Encounter Details Date Type Department Care Team (Late st Contact Info) Description 03/30/2023 Refill [facility] MEDICINE 230 [place], [place] [phone] Pretty Molina MD [address] [place] [address] Other chronic pain Social History Tobacco Use [...] Patient Health Questionnaire-2 Score 4 11/24/2022 Comments Unknown Sex and Gender Information Value [...] Description 07/23/2024 1:00 PM EST Medication Management [facility] MEDICINE [address] [place] [address] Guero Burns, PharmD [address] [place] [address] 10/04/2024 1:00 PM EDT Clinical Support [address] [address] Sandra Boyd, RN documented as of this encounter Visit Diagnoses Diagnosis Other chronic pain documented in this encounter Additional Health Concerns Assessment Noted Time PHQ-9 Depression Total Score: 12 023 3:08 PM EDT documented as of this encounter Care Teams Rhythmic Gymnastics Coach Relationship Specialty Start Date End Date Pretty Molina MD [address] [place] [phone] PCP - General Family Medicine 12/24/20 documented as of this encounter
--- OUTSIDE RECORDS SUMMARY | 2024-07-11 17:01 | XMS_ITS | Encounter Summary ---
Author Organization [employer] Address [address] [facility] 7t [place] [address] Care Team Providers Care Screedman Name Role Phone Pretty Molina MD Primary Care Provide r Reason for Referral * Consultation (Routine) - Authorized Specialty Diagnoses / Procedures Referred By Chrissy lopez Referred To Contact Pharmacy Diagnoses Tobacco dependence Pretty Molina MD [address] [place] [address] Phone: tel: fax: Referral ID Status Reason Start Date Expiration Date Visits Requested Visits Authorized [id number] Authorized Consult and Treat 06/11/2024 06/11/2025 6 6 * Imaging (Routine) - Closed Specialty Diagnoses / Procedures Referred By Chrissy lopez Referred To Contact Radiology Diagnoses Encounter for screening mammogram for malignant neoplasm of breast Procedures BI Mammogram Screening Tomosynthesis Bilateral Pretty Molina MD [address] [place] [address] Phone: tel: fax: [facility] [address] [place] [address] Phone: tel: fax: Referral ID Status Reason Start Date Expiration Date Visits Re quested Visits Authorized [id number] Closed 06/11/2024 06/11/2025 1 1 Encounter Details Date Type Department Care Team (Late st Contact Info) Description 06/11/2024 2:00 PM EST Office Visit [facility] [address] [facility] [place] [address] Pretty Molina MD [address] [facility] [place] [address] Chronic cough (Primary Dx); Type 2 diabetes mellitus with hyperglycemia, without long-term current use of insulin ([facility]); Encounter for screening mammogram for malignant neoplasm of breast; Tobacco dependence; Encounter for preventive care Social History Tobacco Use Types Packs/Day Years [...] AM EDT documented as of this encounter Last Filed Vital Signs Vital Sign Reading Time Taken Comments Blood Pressure 157/85 06/11/2024 1:57 PM EST Pulse 77 06/11/2024 1:57 PM EST Temperature 35.6 ??C (96 ??F) 06/11/2024 1:57 PM EST Respiratory Rate 18 06/11/2024 1:57 PM EST Oxygen Saturation - - Inhaled Oxygen Concentration - - Weight 94.3 kg (208 lb) 06/11/2024 1:57 PM EST Height 157.5 cm (5' 2 ) 06/11/2024 1:57 PM EST Body Mass Index 38.04 06/11/2024 1:57 PM EST documented in this encounter Progress Notes * Pretty Zayas MD - 06/11/2024 2:00 PM EST SUBJECTIVE: Violet Pascal is a 64 y.o. year old female who presents for Physical . 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 Diet:diabetic diet/low Na diet Exercise: sedentary Pap Smear: up to date due on 04/18/2028 Colonoscopy: patient has an appointment on 07/2024 Mammogram ordered today Hospitalizations/Surgeries: no recently Eye Care: up to date Dental Care: up to date Immunizations: Reviewed Acute Concerns: Cough requesting cough syrup Social History Social History Narrative Not on file Patient Active Problem List Diagnosis Type 2 diabetes mellitus with hyperglycemia, without long-term current use of insulin (CMS/HCC) Mood disorder (CMS/HCC) Hyperlipidemia Complex renal cyst Fibromyalgia Blurring of visual image Breast discharge Burn scar contracture of upper arm Carpal tunnel syndrome Chronic vulvovaginitis Cubital tunnel syndrome Foot callus Foot pain Hip pain Essential hypertension Hypertension Lichen Microalbuminuric diabetic nephropathy (CMS/HCC) Moderate persistent asthma without complication Morbid obesity (CMS/HCC) Palpitations Vascular insufficiency Chronic pain Depressive disorder Genital warts Other hemorrhoids Acute diffuse otitis externa of both ears Subacute cough Other fatigue Seasonal allergies Recurrent otitis externa of left ear Colon cancer screening Other constipation Dry eyes Chronic cough Encounter for preventive care Dermatitis Bronchitis Right foot pain Bunion of right foot UTI symptoms Moderate persistent asthma with exacerbation RSV (respiratory syncytial virus pneumonia) Encounter for screening mammogram for malignant neoplasm of breast Tobacco dependence No family history on file. Review of Systems Constitutional: Negative. HENT: Negative. Respiratory: Positive for cough. Negative for apnea, choking, chest tightness, shortness of breath,wheezing and stridor. Cardiovascular: Negative. OBJECTIVE: Vitals: 06/11/24 1357 BP: (!) 157/85 BP Location: Left arm Patient Position: Sitting BP Cuff Size: Large adult Pulse: 77 Resp: 18 Temp: 96 ??F (35.6 ??C) TempSrc: Oral Weight: 208 lb (94.3 kg) Height: 5' 2 (1.575 m) Physical Exam Constitutional: Appearance: Normal appearance. Cardiovascular: Rate and Rhythm: Normal rate and regular rhythm. Pulmonary: Effort: Pulmonary effort is normal. Breath sounds: Normal breath sounds. Abdominal: General: Abdomen is flat. Palpations: Abdomen is soft. Musculoskeletal: Right lower leg: No edema. Left lower leg: No edema. Neurological: Mental Status: She is alert. Follow Up: No follow-ups on file. Current Outpatient Medications on File Prior to Visit Medication Sig Dispense Refill albuterol (2.5 MG/3ML) 0.083% nebulizer solution INHALE 1 AMPULE USING A NEBULIZER EVERY 6 HOURS ASNEEDED 90 mL 3 albuterol (Ventolin HFA) 108 (90 Base) MCG/ACT inhaler INHALE 2 PUFFS EVERY 4 TO 6 HOURS NEEDED 18 g 3 Alcohol Swabs (Alcohol Prep) 70 % pads USE FOR TEST BLOOD SUGAR THREE TIMES DAILY 100 each 11 Aspirin Low Dose 81 MG EC tablet TAKE 1 TABLET BY MOUTH EVERYDAY AT NOON 90 tablet 3 atorvastatin (Lipitor) 80 MG tablet Take 1 tablet (80 mg) by mouth Once per day. 30 tablet 11 Blood Glucose Monitoring Suppl ([employer] Lite) w/Device kit 1 kit 2 times daily. To monitor blood glucose. 1 kit 0 Blood Pressure Monitoring (B-D ASSURE BPM/AUTO WRIST CUFF) misc 1 each Once daily. 1 each 0 cetirizine (ZyrTEC) 10 MG tablet TAKE 1 TABLET BY MOUTH EVERY MORNING 90 tablet 0 cholecalciferol (D3-1000) 25 MCG (1000 UT) capsule TAKE 1 CAPSULE BY MOUTH EVERY MORNING 90 capsule1 dextran 70-hypromellose (artificial tears) 0.1-0.3 % ophthalmic solution Administer 1 drop into both eyes if needed in the morning, at noon, and at bedtime for dry eyes. 30 mL 0 Diclofenac Sodium 1 % gel APPLY 2 GRAMS TOPICALLY TO AFFECTED AREA(S) EVERY TWELVE HOURS NEEDED 100 g 1 dulaglutide (Trulicity) 1.5 MG/0.5ML solution pen-injector Inject 1.5 mg under the skin 1 (one) time per week. 4 pen 11 Dulaglutide 1.5 MG/0.5ML solution auto-injector Inject 0.5 mL (1.5 mg) under the skin 1 (one) time per week. 0.5 mL 1 estradiol (Estrace) 0.1 MG/GM vaginal cream APPLY 1 GRAM TOPICALLY VAGINALLY 2 TIMES PER WEEK. 42.5g 1 fluticasone (Flonase) 50 MCG/ACT nasal spray INHALE 2 SPRAYS IN EACH NOSTRIL ONCE DAILY 48 g 1 gabapentin (Neurontin) 300 MG capsule TAKE 2 CAPSULES BY MOUTH THREE TIMES DAILY IN THE MORNING, EVENING AND BEDTIME 180 capsule 1 glipiZIDE (Glucotrol) 10 MG tablet TAKE 1 TABLET BY MOUTH EVERY MORNING BEFORE BREAKFAST 90 tablet 3 glucose blood (FREESTYLE LITE) test strip TEST BLOOD SUGAR 3 TIMES A DAY DIRECTED 100 strip 11 Grfmqcma-Qyiackgyrnwi-VIY 400 (SM Dry Eye Relief) 0.2-0.2-1 % solution INSTILL 1 DROP IN EACH EYE THREE TIMES DAILY IN THE MORNING, AT NOON, AND AT BEDTIME FOR DRY EYES 15 mL 1 hydroCHLOROthiazide 12.5 MG tablet TAKE 1 TABLET BY MOUTH EVERY MORNING (CALL IF BLOOD PRESSURE CONTINUAMENTE >140/90) 90 tablet 1 hydrocortisone (Anusol-HC) 2.5 % rectal cream Apply a thin layer to affected area(s)twice daily to four times daily as needed 30 g 0 Jardiance 25 MG TAKE 1 TABLET BY MOUTH EVERY MORNING 90 tablet 1 losartan (Cozaar) 100 MG tablet TAKE 1 TABLET BY MOUTH EVERY MORNING 90 tablet 3 magnesium hydroxide (Milk of Magnesia) 2400 MG/10ML suspension suspension Take 10 mL by mouth if needed each day for constipation. 300 mL 1 metFORMIN (Glucophage) 1000 MG tablet TAKE 1 TABLET BY MOUTH TWICE DAILY IN THE MORNING AND IN THE EVENING WITH FOOD 180 tablet 3 naloxone (Narcan) 4 mg/0.1 mL nasal spray Administer 1 spray (4 mg) into affected nostril(s) if needed for opioid reversal. May repeat every 2-3 minutes if needed, alternating nostrils, until medicalassistance becomes available. Pt on Oxycodone 2 each 2 Ygwmivku-Msjemxdse-EK 1 % solution Administer 3 drops into affected ear(s) 4 times daily. 10 mL 0 NIFEdipine XL (Procardia XL) 60 MG 24 hr tablet TAKE 1 TABLET BY MOUTH EVERYDAY AT NOON 90 tablet 3 omeprazole (PriLOSEC) [address] capsule TAKE 1 CAPSULE BY MOUTH EVERY MORNING 90 capsule 1 oxyCODONE-acetaminophen (Percocet) 5-325 MG tablet Take 1 tablet by mouth every 12 (twelve) hours if needed for severe pain for up to 28 days. 56 tablet 0 polyvinyl alcohol (Liquifilm Tears) 1.4 % ophthalmic solution INSTILL 1 DROP IN EACH EYE THREE TIMES DAILY IN THE MORNING, AT NOON, AND AT BEDTIME NEEDED FOR DRY EYES 15 mL 1 Proventil HFA 108 (90 Base) MCG/ACT inhaler INHALE 2 PUFFS BY MOUTH EVERY 4 TO 6 HOURS NEEDED 6.7 g 3 RSV Pre-Fusion F A&B Vac Rcmb (Abrysvo) 120 MCG/0.5ML reconstituted solution Inject 1 each intothe shoulder, thigh, or buttocks Once daily. 1 each 0 SF 5000 Plus 1.1 % cream USE AT BEDTIME DO NOT RINSE FOR 30 MINUTES 51 g 0 TRUEplus Lancets 33G misc TEST BLOOD SUGAR 3 TIMES DAILY 100 each 11 [DISCONTINUED] oxyCODONE-acetaminophen (Percocet) 5-325 MG tablet Take 1 tablet by mouth every 12 (twelve) hours if needed for severe pain for up to 28 days. 56 tablet 0 [DISCONTINUED] Trulicity 0.75 MG/0.5ML solution pen-injector INJECT ONE PEN (=0.75MG) SUBCUTANEOUSLY ONCE A WEEK DIRECTED 2 mL 2 No current facility-administered medications on file prior to visit. Problem List Items Addressed This Visit Type 2 diabetes mellitus with hyperglycemia, without long-term current use of insulin ([facility]) Diabetes is: almost at goal - Lab Results Component Value Date HGBA1C 6.9 (A) 04/05/2024 HGBA1C 6.5 (A) 01/06/2024 HGBA1C 6.3 (A) 05/30/2023 - Lab Results Component Value Date MICROALBUR 204.8 07/20/2021 CREATININE 0.89 01/10/2024 -Changes: none - Diabetic eye exam:up o date - Diabetic foot exam:up to date - Continue lifestyle modifications - Continue current medications - Follow up: 3 months Relevant Orders POCT Glucose (Completed) Chronic cough - Primary Relevant Medications ifjbhrcshtoxtzj-hwlgdhtooinvfez-PA 30-2-10 MG/5ML syrup Encounter for screening mammogram for malignant neoplasm of breast Relevant Orders BI Mammogram Screening Tomosynthesis Bilateral Tobacco dependence Counseling done CDTM referral Relevant Medications nicotine polacrilex (Nicotine Mini) 2 MG lozenge Other Relevant Orders Referral to Pharmacy CDTM Encounter for preventive care See HPI documented in this encounter Miscellaneous Notes * Assessment & Plan Note - Pretty Zayas MD - 06/11/2024 4:03 PM EST Associated Problem(s): Tobacco dependence Counseling done CDTM referral * Assessment & Plan Note - Pretty Zayas MD - 06/11/2024 4:02 PM EST Associated Problem(s): Encounter for preventive care See HPI * Assessment & Plan Note - Pretty Zayas MD - 06/11/2024 4:02 PM EST Associated Problem(s): Type 2 diabetes mellitus with hyperglycemia, without long-term current use of insulin ([facility]) Diabetes is: almost at goal - Lab Results Component Value Date HGBA1C 6.9 (A) 04/05/2024 HGBA1C 6.5 (A) 01/06/2024 HGBA1C 6.3 (A) 05/30/2023 - Lab Results Component Value Date MICROALBUR 204.8 07/20/2021 CREATININE 0.89 01/10/2024 -Changes: none - Diabetic eye exam:up o date - Diabetic foot exam:up to date - Continue lifestyle modifications - Continue current medications - Follow up: 3 months documented in this encounter Plan of Treatment Upcoming Encounters Date Type Department Care Team (Late st Contact Info) Description 07/23/2024 1:00 PM EST Medication Management [address] [address] Guero Burns PharmD [address] [place] [phone] 10/04/2024 1:00 PM EDT Clinical Support [address] [address] Sandra Boyd, TONY Scheduled Orders Name Type Priority Associated Diagnoses Orde r Schedule BI Mammogram Screening Tomosynthesis Bilateral Imaging Routine Encounter for screening mammogram for malignant neoplasm of breast Expected: 06/11/2024, Expires: 08/10/2025 Scheduled Referrals Name Type Priority Associated Diagnoses Orde r Schedule Referral to Pharmacy CDTM Outpatient Referral Routine Tobacco dependence Ordered: 06/11/2024 documented as of this encounter Procedures Procedure Name Priority Date/Time Associated Diagnosis Comments POCT GLUCOSE Routine 06/11/2024 1:58 PM EST Type 2 diabetes mellitus with hyperglycemia, without long-term current use of insulin ([facility]) documented in this encounter Results * POCT Glucose (06/11/2024 1:58 PM EST) Glucose Blood, POC 103 60 - 200 mg/dL QC Media Lot # [id number] Lot# Expiration Date Blood Capillary blood specimen / Unknown 06/11/2024 1:58 PM EST us Pretty Zayas MD POINT OF CARE TEST EN TER/EDIT ORDERABLES Final Result documented in this encounter Visit Diagnoses Diagnosis Chronic cough- Primary Cough Type 2 diabetes mellitus with hyperglycemia, without long-term current use of insulin ([facility]) Encounter for screening mammogram for malignant neoplasm of breast Tobacco dependence Tobacco use disorder Encounter for preventive care documented in this encounter Additional Health Concerns Assessment Noted Time PHQ-9 Depression Total Score: 4 01/06/20 24 2:22 PM EDT documented as of this encounter Care Teams Screedman Relationship Specialty Start Date End Date Pretty Molina MD [address] [place] [phone] PCP - General Family Medicine 12/24/20 documented as of this encounter
--- OUTSIDE RECORDS SUMMARY | 2024-07-11 17:01 | XMS_ITS | Encounter Summary ---
Author Organization [employer] Address [address] [facility] 7t [place] [address] Care Team Providers Care Conference Center Coordinator Name Role Phone Pretty Molina MD Primary Care Provide r Reason for Visit * Reason Comments Med Refill Encounter Details Date Type Department Care Team (Late st Contact Info) Description 06/11/2022 Refill [facility] [address] [place], [place] [phone] Yasmine Hernandez MD [address] [place] [address] Chronic pain syndrome Social History Tobacco Use Types Packs/Day Years Used Date Smoking Tobacco: Never Assessed Comments Unknown Sex and Gender Information Value Date Recorded Sex Assigned at Female 04/12/2022 10:19 AM EDT Legal Sex Female 10:19 AM EDT Gender Identity Female 04/12/2022 10:19 AM EDT Sexual Orientation Straight 04/12/2022 10 :19 AM EDT documented as of this encounter Miscellaneous Notes * Telephone Encounter - Marti Cedillo RN - 06/15/2022 10:45 AM EST Hospitality Host ck 06/15/22. documented in this encounter Plan of Treatment Upcoming Encounters Date Type Department Care Team (Late st Contact Info) Description 07/23/2024 1:00 PM EST Medication Management [facility] [address] [place] [address] Guero Burns, PharmD [address] [place] [address] 10/04/2024 1:00 PM EDT Clinical Support [facility] [address] [place] [address] Sandra Boyd RN documented as of this encounter Visit Diagnoses Diagnosis Chronic pain syndrome documented in this encounter Care Teams Conference Center Coordinator Relationship Specialty Start Date End Date Pretty Molina MD [address] [place] [address] PCP - General Family Medicine 12/24/20 documented as of this encounter
--- OUTSIDE RECORDS SUMMARY | 2024-07-11 17:01 | XMS_ITS | Encounter Summary ---
Author Organization [employer] Address [address] [facility] 7t [place] [address] Care Team Providers Care Java Web User Interface Developer Name Role Phone Pretty Molina MD Primary Care Provide r Encounter Details Date Type Department Care Team (Latest Contact Info) Description 05/31/2019 Abstract [facility] CONVERSIONS Dental, Provider, DDS Social History [...] Description 07/23/2024 1:00 PM EST Medication Management [facility] [address] [place] [phone] Guero Burns, PoloD [address] [place] [address] 10/04/2024 1:00 PM EDT Clinical Support [facility] [address] [place] [phone] Sandra Boyd, TONY documented as of this encounter Visit Diagnoses Not on filedocumented in this encounter Care Teams Java Web User Interface Developer Relationship Specialty Start Date End Date Pretty Molina MD [address] [place] [address] PCP - General Family Medicine 12/24/20 documented as of this encounter
--- OUTSIDE RECORDS SUMMARY | 2024-07-11 17:01 | XMS_ITS | Encounter Summary ---
Author Organization [employer] Address [address] [facility] 7t [place] [address] Care Team Providers Care Signal Circuit Designer Name Role Phone Pretty Molina MD Primary Care Provide r Reason for Visit * Reason Onset Date Comments DME from [facility] 06/07/2024 Encounter Details Date Type Department Care Team ([facility] st Contact Info) Description 06/07/2024 Telephone [facility] [address] [place] [address] Mauro Frye MA DME from [facility] Social History Tobacco Use Types Packs/Day Years [...] encounter Miscellaneous Notes * Telephone Encounter - Ro Beckwith MA - 06/18/2024 12:57 PM EST Received fors below back from PCP and I faxed them back to company. * Telephone Encounter - Mauro Frye MA - 06/07/2024 10:00 AM EST Certificate or medical necessity and DME for DM shoes from [facility] placed on PCP desk for signature. documented in this encounter Plan of Treatment Upcoming Encounters Date Type Department Care Team (Late st Contact Info) Description 07/23/2024 1:00 PM EST Medication Management [facility] [address] [place] [phone] Guero Burns, PharmD [address] [place] [address] 10/04/2024 1:00 PM EDT Clinical Support [facility] [address] [place] [phone] Sandra Boyd RN documented as of this encounter Visit Diagnoses Not on filedocumented in this encounter Additional Health Concerns Assessment Noted Time PHQ-9 Depression Total Score: 4 01/06/20 24 2:22 PM EDT documented as of this encounter Care Teams Signal Circuit Designer Relationship Specialty Start Date End Date Pretty Molina MD [address] [place] [address] PCP - General Family Medicine 12/24/20 documented as of this encounter
--- OUTSIDE RECORDS SUMMARY | 2024-07-11 17:01 | XMS_ITS | Encounter Summary ---
Author Organization [employer] Address [address] [facility] 7t [place] [address] Care Team Providers Care Seo Marketing Specialist Name Role Phone Pretty Molina MD Primary Care Provide r Encounter Details Date Type Department Care Team (Latest Contact Info) Description 04/21/2020 Abstract [facility] CONVERSIONS Dental, Provider, DDS Social History [...] Description 07/23/2024 1:00 PM EST Medication Management [facility] MEDICINE [address] [place] [id number] Guero Burns, PoloD [address] [place] [address] 10/04/2024 1:00 PM EDT Clinical Support [facility] [address] [place] [phone] Sandra Boyd, RN documented as of this encounter Visit Diagnoses Not on filedocumented in this encounter Care Teams Seo Marketing Specialist Relationship Specialty Start Date End Date Pretty Molina MD [address] [place] [address] PCP - General Family Medicine 12/24/20 documented as of this encounter
--- OUTSIDE RECORDS SUMMARY | 2024-07-11 17:01 | XMS_ITS | Encounter Summary ---
Author Organization [employer] Address 75 [facility] [address]t [place] [address] Care Team Providers Care Axle Turner Name Role Phone Pretty Molina MD Primary Care Provide r Reason for Visit * Reason Comments Med Refill Encounter Details Date Type Department Care Team (Late st Contact Info) Description 05/02/2023 Refill [facility] [address] [place] [address] Jocelyn Bender DO [address] [place] [address] Seasonal allergic rhinitis, unspecified trigger Social History Tobacco Use Types Packs/Day Years [...] Description 07/23/2024 1:00 PM EST Medication Management [address] [address] Guero Burns, PharmD [address] [place] [address] 10/04/2024 1:00 PM EDT Clinical Support [address] [address] Sandra Boyd, TONY documented as of this encounter Visit Diagnoses Diagnosis Seasonal allergic rhinitis, unspecified trigger documented in this encounter Additional Health Concerns Assessment Noted Time PHQ-9 Depression Total Score: 12 023 3:08 PM EDT documented as of this encounter Care Teams Axle Turner Relationship Specialty Start Date End Date Pretty Molina MD [address] [place] [phone] PCP - General Family Medicine 12/24/20 documented as of this encounter
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
--- OUTSIDE RECORDS SUMMARY | 2024-07-11 17:01 | XMS_ITS | Encounter Summary ---
Author Organization [employer] Address [address] [facility] 7t [place] [address] Care Team Providers Care Contract Post Office Clerk Name Role Phone Pretty Molina MD Primary Care Provide r Reason for Visit * Reason Comments Med Refill Encounter Details Date Type Department Care Team (Late st Contact Info) Description 07/05/2023 Refill [facility] MED & PEDS [address] [place], [place] [phone] Pretty Molina MD [address] [place] [address] Social History Tobacco Use Types Packs/Day Years Used Date Smoking Tobacco: Some Days Cigarettes Smokeless Tobacco: Never Alcohol Use Standard Drinks/Week [...] Description 07/23/2024 1:00 PM EST Medication Management [address] [address] Guero Burns, PharmD [address] [place] [address] 10/04/2024 1:00 PM EDT Clinical Support [address] [address] Sandra Boyd, TONY documented as of this encounter Visit Diagnoses Not on filedocumented in this encounter Additional Health Concerns Assessment Noted Time PHQ-9 Depression Total Score: 12 023 3:08 PM EDT documented as of this encounter Care Teams Contract Post Office Clerk Relationship Specialty Start Date End Date Pretty Molina MD [address] [place] [phone] PCP - General Family Medicine 12/24/20 documented as of this encounter
--- OUTSIDE RECORDS SUMMARY | 2024-07-11 17:01 | XMS_ITS | Encounter Summary ---
Author Organization [employer] Address [address] [facility] 7t [place] [address] Care Team Providers Care Health Navigator Name Role Phone Pretty Molina MD Primary Care Provide r Reason for Visit * Reason Onset Date Comments Appointment Request 06/10/2022 Encounter Details Date Type Department Care Team ([facility] st Contact Info) Description 06/10/2022 Telephone [facility] MEDICINE [address] [place] [address] Pretty Molina MD [address] [place] [address] Appointment Request Social History Tobacco Use Types Packs/Day Years Used Date Smoking Tobacco: Never Assessed Depression Answer Date Recorded Patient Health Questionnaire-9 [...] Access Q2 Not on file 02/13/2024 Comments Unknown Sex and Gender Information Value [...] suspected to have Coronavirus/COVID-19? No / Unsure 12/02/2022 2:47 PM EDT documented as of this encounter Miscellaneous Notes * Telephone Encounter - Mehnaz Alejandra - 06/10/2022 2:04 PM EST Tc from pt requesting to r/s COT RN appt scheduled for 06/10/22 @ 2;30pm , Appt was cancelled RN out today, Advised pt will leave a message. Please contact at [phone] Speaks Arabic. documented in this encounter Plan of Treatment Upcoming Encounters Date Type Department Care Team (Late st Contact Info) Description 07/23/2024 1:00 PM EST Medication Management [facility] MED[facility]INE [address] [place] [phone] Guero Burns, PharmD [address] [place] [address] 10/04/2024 1:00 PM EDT Clinical Support [address] [address] Sandra Boyd RN documented as of this encounter Visit Diagnoses Not on filedocumented in this encounter Care Teams Health Navigator Relationship Specialty Start Date End Date Pretty Molina MD [address] [place] [address] PCP - General Family Medicine 12/24/20 documented as of this encounter
--- OUTSIDE RECORDS SUMMARY | 2024-07-11 17:01 | XMS_ITS | Encounter Summary ---
Author Organization [employer] Address [address] [place] [address] 7t [place] [address] Care Team Providers Care Paralegal Assistant Name Role Phone Pretty Molina MD Primary Care Provide r Reason for Visit * Reason Comments Med Refill Encounter Details Date Type Department Care Team (Late st Contact Info) Description 02/28/2023 Refill [facility] MEDICINE [address] [place], [place] [phone] Pretty Molina MD [address] [place], [place] [phone] Social History Tobacco Use Types Packs/Day Years Used Date Smoking Tobacco: Never Smokeless Tobacco: Never Alcohol Use Standard Drinks/Week Comments Not Currently 0 (1 standard drink = 0.6 oz pur e alcohol) Depression Answer Date Recorded Patient Health Questionnaire-9 Score 12 11/24/2022 Depression Answer Date Recorded Patient Health Questionnaire-2 [...] Description 07/23/2024 1:00 PM EST Medication Management [facility] [address] [place] [address] Guero Burns, PharmD [address] [place], [place] [phone] 10/04/2024 1:00 PM EDT Clinical Support [facility] [address] [place] [address] Sandra Boyd RN documented as of this encounter Visit Diagnoses Not on filedocumented in this encounter Additional Health Concerns Assessment Noted Time PHQ-9 Depression Total Score: 12 11/24/ 023 3:08 PM EDT documented as of this encounter Care Teams Paralegal Assistant Relationship Specialty Start Date End Date Pretty Molina MD [address] [place] [address] PCP - General Family Medicine 12/24/20 documented as of this encounter
--- OUTSIDE RECORDS SUMMARY | 2024-07-11 17:01 | XMS_ITS | Encounter Summary ---
Author Organization [employer] Address [address] [facility] 7t [place] [address] Care Team Providers Care Director Of Public Health Name Role Phone Pretty Molina MD Primary Care Provide r Reason for Visit * Reason Comments Med Refill Encounter Details Date Type Department Care Team ([facility] st Contact Info) Description 03/23/2023 Refill [facility] MED & PEDS [address] [place] [address] Pretty Molina MD [address] [place] [address] Neuropathy Social History Tobacco Use Types Packs/Day Years Used Date Smoking Tobacco: Never Smokeless Tobacco: Never Alcohol Use Standard Drinks/Week Comments Not Currently 0 (1 standard drink = 0.6 oz pur e alcohol) Depression Answer Date Recorded Patient Health Questionnaire-9 Score 12 11/24/2022 Housing Stability Answer Date Recorded What is your housing situation today? I have krystian rascon 03/23/[address] you li ve. Do you have problems with any of the following? None of the above 03/23/2023 Food Insecurity Answer Date Recorded Within the past 12 months, y ou worried that your food would run out before you got money to buy more: Never True 03/23/2023 Within the past 12 months,th e food you bought just didn't last and you didn't have enough money to get more: Never True 04/2023 Transportation Answer Date Recorded In the past 12 months, has l ack of transportation kept you from medical appts, meetings, work or from getting things needed for daily living? No 03/23/2023 Utilities Answer Date Recorded In the past 12 months, has t he electric, gas, oil or water company threatened to shut off services in your home? No 03/23/2023 Depression Answer Date Recorded Patient Health Questionnaire-2 [...] Description 07/23/2024 1:00 PM EST Medication Management [address] [address] Guero Burns, PharmD [address] [place] [address] 10/04/2024 1:00 PM EDT Clinical Support [address] [address] Sandra Boyd, TONY documented as of this encounter Visit Diagnoses Diagnosis Neuropathy Mononeuritis of unspecified site documented in this encounter Additional Health Concerns Assessment Noted Time PHQ-9 Depression Total Score: 12 023 3:08 PM EDT documented as of this encounter Care Teams Director Of Public Health Relationship Specialty Start Date End Date Pretty Molina MD [address] [place] [phone] PCP - General Family Medicine 12/24/20 documented as of this encounter
--- OUTSIDE RECORDS SUMMARY | 2024-07-11 17:01 | XMS_ITS | Encounter Summary ---
Author Organization [employer] Address [address] [facility] 7t [place] [address] Care Team Providers Care Clinical Program Director Name Role Phone Pretty Molina MD Primary Care Provide r Encounter Details Date Type Department Care Team (Latest Contact Info) Description 06/11/2024 Travel Social History Tobacco Use Types Packs/Day Years [...] Description 07/23/2024 1:00 PM EST Medication Management [address] [address] Guero Burns, PharmD [address] [place] [address] 10/04/2024 1:00 PM EDT Clinical Support [address] [address] Sandra Boyd, TONY documented as of this encounter Visit Diagnoses Not on filedocumented in this encounter Additional Health Concerns Assessment Noted Time PHQ-9 Depression Total Score: 4 01/06/20 24 2:22 PM EDT documented as of this encounter Care Teams Clinical Program Director Relationship Specialty Start Date End Date Pretty Molina MD [address] [place] [address] PCP - General Family Medicine 12/24/20 documented as of this encounter
--- OUTSIDE RECORDS SUMMARY | 2024-07-11 17:01 | XMS_ITS | Encounter Summary ---
Author Organization [employer] Address [address] [facility] 7t [place] [address] Care Team Providers Care Media Center Assistant Name Role Phone Pretty Molina MD Primary Care Provide r Reason for Visit * Reason Comments Med Refill Encounter Details Date Type Department Care Team (Late st Contact Info) Description 06/06/2024 Refill [facility] MED & PEDS [address] [place] [address] Pretty Molina MD [address] [place] [address] Type 2 diabetes mellitus with hyperglycemia, without long-term current use of insulin ([facility]) Social History Tobacco Use Types Packs/Day Years [...] Description 07/23/2024 1:00 PM EST Medication Management [address] [address] Guero Burns, PharmD [address] [place] [address] 10/04/2024 1:00 PM EDT Clinical Support [address] [address] Sandra Boyd RN documented as of this encounter Visit Diagnoses Diagnosis Type 2 diabetes mellitus with hyperglycemia, without long-term current use of insulin ([facility]) documented in this encounter Additional Health Concerns Assessment Noted Time PHQ-9 Depression Total Score: 4 01/06/20 24 2:22 PM EDT documented as of this encounter Care Teams Media Center Assistant Relationship Specialty Start Date End Date Pretty Molina MD [address] [place] [phone] PCP - General Family Medicine 12/24/20 documented as of this encounter
--- OUTSIDE RECORDS SUMMARY | 2024-07-11 17:01 | XMS_ITS | Encounter Summary ---
Author Organization [employer] Address [address] [facility] 7 [place] [address] Care Team Providers Care Central Service Tech Name Role Phone Pretty Molina MD Primary Care Provide r Reason for Visit * Reason Onset Date Comments Med Refill 06/10/2022 Encounter Details Date Type Department Care Team (Late st Contact Info) Description 06/10/2022 Refill [facility] [address] [place] [address] Pretty Molina MD [address] [place] [address] Social History Tobacco Use Types Packs/Day Years Used Date Smoking Tobacco: Never Assessed Comments Unknown Sex and Gender Information Value Date Recorded Sex Assigned at Female 04/12/2022 10:19 AM EDT Legal Sex Female 10:19 AM EDT Gender Identity Female 04/12/2022 10:19 AM EDT Sexual Orientation Straight 04/12/2022 10 :19 AM EDT documented as of this encounter Miscellaneous Notes * Telephone Encounter - Willis Ghosh - 06/10/2022 9:22 AM EST Tc from pt requesting med refill (oxycodone HCl/acetaminophen) 5 mg-325 mg take 1 tablet by oral route twice daily as needed ) documented in this encounter Plan of Treatment Upcoming Encounters Date Type Department Care Team (Late st Contact Info) Description 07/23/2024 1:00 PM EST Medication Management [facility] [address] [place], [place] [phone] Guero Burns, PharmD [address] [place] [address] 10/04/2024 1:00 PM EDT Clinical Support [facility] [address] [place] [phone] Sandra Boyd, RN documented as of this encounter Visit Diagnoses Not on filedocumented in this encounter Care Teams Central Service Tech Relationship Specialty Start Date End Date Pretty Molina MD [address] [place] [phone] PCP - General Family Medicine 12/24/20 documented as of this encounter
--- OUTSIDE RECORDS SUMMARY | 2024-07-11 17:01 | XMS_ITS | Encounter Summary ---
Author Organization [employer] Address [address] [facility] 7t [place] [address] Care Team Providers Care Broach Operator Name Role Phone Pretty Molina MD Primary Care Provide r Reason for Visit * Reason Comments Med Refill Encounter Details Date Type Department Care Team (Late st Contact Info) Description 05/10/2023 Refill [facility] MEDICINE [address] [place], [place] [phone] Pretty Molina MD [address] [place], [place] [phone] Other chronic pain Social History Tobacco Use [...] Description 07/23/2024 1:00 PM EST Medication Management [facility] MED[facility]INE [address] [place] [address] Guero Burns, PharmD [address] [place] [address] 10/04/2024 1:00 PM EDT Clinical Support [address] [address] Sandra Boyd, RN documented as of this encounter Visit Diagnoses Diagnosis Other chronic pain documented in this encounter Additional Health Concerns Assessment Noted Time PHQ-9 Depression Total Score: 12 023 3:08 PM EDT documented as of this encounter Care Teams Broach Operator Relationship Specialty Start Date End Date Pretty Molina MD [address] [place] [address] PCP - General Family Medicine 12/24/20 documented as of this encounter
--- OUTSIDE RECORDS SUMMARY | 2024-07-11 17:01 | XMS_ITS | Clinical Summary ---
Author Organization [employer] Address [address] [place] [address] [address] [place] [address] Care Team Providers Care Carton Folder Name Role Phone Pretty Molina MD Primary Care Provide r Allergies Active Allergy Reactions Criticality Noted Date Comments Morphine Palpitations Low 06/25/2022 tachycardia Medications hydrocortisone (Anusol-HC) 2.5 % rectal creamIndications :Hemorrhoids, unspecified hemorrhoid type Apply a thin layer to affected area(s)twice daily to four times daily as needed 30 g 023 Active Proventil HFA 108 (90 Base) MCG/ACT inhaler INHALE 2 PUFFS BY MOUTH EVERY 4 TO 6 HOURS NEEDED 6.7 g 3 023 Active Neomycin-Polymyx in-HC 1 % solutionIndicati ons:Acute diffuse otitis externa of both ears Administer 3 drops into affected ear(s) 4 times daily. 10 mL 023 Active Blood Glucose Monitoring Suppl (FreeStyle Lite) w/Device kitIndications:T ype 2 diabetes mellitus with hyperglycemia, without long-term current use of insulin (CMS/[facility]) 1 kit 2 times daily. To monitor blood glucose. 1 kit 023 Active SF 5000 Plus 1.1 % cream USE AT BEDTIME DO NOT RINSE FOR 30 MINUTES 51 g 023 Active dulaglutide (Trulicity) 1.5 MG/0.5ML solution pen-injectorIndi cations:Type 2 diabetes mellitus with hyperglycemia, without long-term current use of insulin (CMS/HCC) Inject 1.5 mg under the skin 1 (one) time per week. 4 pen 11 023 Active Blood Pressure Monitoring (B-D ASSURE BPM/AUTO WRIST CUFF) miscIndications: Essential hypertension 1 each Once daily. 1 each 023 Active RSV Pre-Fusion F A&B Vac Rcmb (Abrysvo) 120 MCG/0.5ML reconstituted solutionIndicati ons:Type 2 diabetes mellitus with hyperglycemia, without long-term current use of insulin (CMS/HCC) Inject 1 each into the shoulder, thigh, or buttocks Once daily. 1 each 023 Active Alcohol Swabs (Alcohol Prep) 70 % pads USE FOR TEST BLOOD SUGAR THREE TIMES DAILY 100 each 11 024 Active estradiol (Estrace) 0.1 MG/GM vaginal cream APPLY 1 GRAM TOPICALLY VAGINALLY 2 TIMES PER WEEK. 42.5 g 1 024 Active metFORMIN (Glucophage) 1000 MG tablet TAKE 1 TABLET BY MOUTH TWICE DAILY IN THE MORNING AND IN THE EVENING WITH FOOD 180 tablet 3 024 Active Aspirin Low Dose 81 MG EC tablet TAKE 1 TABLET BY MOUTH EVERYDAY AT NOON 90 tablet 3 024 Active NIFEdipine XL (Procardia XL) 60 MG 24 hr tabletIndication s:Essential hypertension TAKE 1 TABLET BY MOUTH EVERYDAY AT NOON 90 tablet 3 024 Active magnesium hydroxide (Milk of Magnesia) 2400 MG/10ML suspension suspensionIndica tions:Other constipation Take 10 mL by mouth if needed each day for constipation. 300 mL 1 024 Active dextran 70-hypromellose (artificial tears) 0.1-0.3 % ophthalmic solutionIndicati ons:Dry eyes Administer 1 drop into both eyes if needed in the morning, at noon, and at bedtime for dry eyes. 30 mL 024 2024 Active Glycerin-Hyprome llose-PEG 400 (SM Dry Eye Relief) 0.2-0.2-1 % solutionIndicati ons:Dry eye syndrome of bilateral lacrimal glands INSTILL 1 DROP IN EACH EYE THREE TIMES DAILY IN THE MORNING, AT NOON, AND AT BEDTIME FOR DRY EYES 15 mL 1 024 Active losartan (Cozaar) 100 MG tabletIndication s:Primary hypertension TAKE 1 TABLET BY MOUTH EVERY MORNING 90 tablet 3 024 Active glipiZIDE (Glucotrol) 10 MG tabletIndication s:Diabetes mellitus type 2 in nonobese ([facility]) TAKE 1 TABLET BY MOUTH EVERY MORNING BEFORE BREAKFAST 90 tablet 3 Active Diclofenac Sodium 1 % gelIndications:F ibromyalgia APPLY 2 GRAMS TOPICALLY TO AFFECTED AREA(S) EVERY TWELVE HOURS NEEDED 100 g 1 024 Active glucose blood (FREESTYLE LITE) test strip TEST BLOOD SUGAR 3 TIMES A DAY DIRECTED 100 strip 11 Active TRUEplus Lancets 33G misc TEST BLOOD SUGAR 3 TIMES DAILY 100 each 11 024 Active polyvinyl alcohol (Liquifilm Tears) 1.4 % ophthalmic solutionIndicati ons:Dry eye syndrome of bilateral lacrimal glands INSTILL 1 DROP IN EACH EYE THREE TIMES DAILY IN THE MORNING, AT NOON, AND AT BEDTIME NEEDED FOR DRY EYES 15 mL 1 024 Active atorvastatin (Lipitor) 80 MG tabletIndication s:Essential hypertension Take 1 tablet (80 mg) by mouth Once per day. 30 tablet 11 024 2024 Active fluticasone (Flonase) 50 MCG/ACT nasal sprayIndications :Cough in adult patient INHALE 2 SPRAYS IN EACH NOSTRIL ONCE DAILY 48 g 1 024 Active cholecalciferol (D3-1000) 25 MCG (1000 UT) capsuleIndicatio ns:Vitamin D deficiency TAKE 1 CAPSULE BY MOUTH EVERY MORNING 90 capsule 1 024 Active albuterol (2.5 MG/3ML) 0.083% nebulizer solution INHALE 1 AMPULE USING A NEBULIZER EVERY 6 HOURS NEEDED 90 mL 3 024 Active albuterol (Ventolin HFA) 108 (90 Base) MCG/ACT inhaler INHALE 2 PUFFS EVERY 4 TO 6 HOURS NEEDED 18 g 3 024 Active Jardiance 25 MGIndications:Ty pe 2 diabetes mellitus with other specified complication, unspecified whether usp insulin use ([facility]) TAKE 1 TABLET BY MOUTH EVERY MORNING 90 tablet 1 024 Active omeprazole (PriLOSEC) [address] capsule TAKE 1 CAPSULE BY MOUTH EVERY MORNING 90 capsule 1 024 Active Dulaglutide 1.5 MG/0.5ML solution auto-injectorInd ications:Type 2 diabetes mellitus with hyperglycemia, without long-term current use of insulin ([facility]) Inject 0.5 mL (1.5 mg) under the skin 1 (one) time per week. 0.5 mL 1 024 Active nicotine polacrilex (Nicotine Mini) 2 MG lozengeIndicatio ns:Tobacco dependence Dissolve 1 lozenge (2 mg) in the mouth if needed for smoking cessation. 100 lozenge 024 Active gabapentin (Neurontin) 300 MG capsuleIndicatio ns:Neuropathy TAKE 2 CAPSULES BY MOUTH THREE TIMES DAILY IN THE MORNING, EVENING AND BEDTIME 180 capsule 1 025 Active cetirizine (ZyrTEC) 10 MG tabletIndication s:Seasonal allergies TAKE 1 TABLET BY MOUTH EVERY MORNING 90 tablet 025 Active hydroCHLOROthiaz malorie 12.5 MG tabletIndication s:Primary hypertension TAKE 1 TABLET BY MOUTH EVERY MORNING (CALL IF BLOOD PRESSURE CONTINUAMENTE >140/90) 90 tablet 1 025 Active oxyCODONE-acetam inophen (Percocet) 5-325 MG tabletIndication s:Other chronic pain Take 1 tablet by mouth every 12 (twelve) hours if needed for severe pain for up to 28 days. 56 tablet 025 2024 Active naloxone (Narcan) 4 mg/0.1 mL nasal sprayIndications :Other chronic pain Administer 1 spray (4 mg) into affected nostril(s) if needed for opioid reversal. May repeat every 2-3 minutes if needed, alternating nostrils, until medical assistance becomes available. Pt on Oxycodone 2 each 2 024 2024 hydroCHLOROthiaz malorie 12.5 MG tabletIndication s:Primary hypertension TAKE 1 TABLET BY MOUTH EVERY MORNING (CALL IF BLOOD PRESSURE CONTINUAMENTE >140/90) 90 tablet 1 024 2024 Discontinued cetirizine (ZyrTEC) 10 MG tabletIndication s:Seasonal allergies TAKE 1 TABLET BY MOUTH EVERY MORNING 90 tablet 024 2024 Discontinued gabapentin (Neurontin) 300 MG capsuleIndicatio ns:Neuropathy TAKE 2 CAPSULES BY MOUTH THREE TIMES DAILY IN THE MORNING, EVENING AND BEDTIME 180 capsule 1 024 2024 Discontinued oxyCODONE-acetam inophen (Percocet) 5-325 MG tabletIndication s:Other chronic pain Take 1 tablet by mouth every 12 (twelve) hours if needed for severe pain for up to 28 days. 56 tablet 024 2024 Discontinued(R eorder (will not trigger notification to Pharmacy)) brompheniramine- pseudoephedrine- DM 30-2-10 MG/5ML syrupIndications :Chronic cough Take 5 mL by mouth if needed in the morning, at noon, in the evening, and at bedtime for allergies for up to 10 days. 473 mL 2024 Active Problems Problem Noted Date Diagnosed Date Encounter for screening mamm ogram for malignant neoplasm of breast 06/11/2024 Tobacco dependence 06/11/2024 Assessment & Plan (06/11/2024 4:03 PM EST): Counseling done CDTM referral Moderate persistent asthma with exacerbation Assessment & Plan (04/27/2024 4:22 PM EST): Albuterol nebulization today I will extend her prednisone therapy for 5 more days RSV (respiratory syncytial virus pneumonia) 04/13 Assessment & Plan (04/27/2024 4:23 PM EST): Finish medications prescribed in the emergency room Drink plenty of fluids and rest UTI symptoms 01/06/2024 Bronchitis 10/07/2023 Assessment & Plan (10/07/2023 4:41 PM EDT): Resolved Right foot pain 10/07/2023 Bunion of right foot 10/07/2023 Encounter for preventive care 05/30/2023 Assessment & Plan (06/11/2024 4:02 PM EST): See HPI Assessment & Plan (05/30/2023 4:06 PM EST): See HPI Dermatitis 05/30/2023 Colon cancer screening 02/23/2023 Other constipation 02/23/2023 Dry eyes 02/23/2023 Chronic cough 02/23/2023 Other fatigue 11/24/2022 Seasonal allergies 11/24/2022 Recurrent otitis externa of left ear 11/24/2022 Genital warts 10/06/2022 Other hemorrhoids 10/06/2022 Acute diffuse otitis externa of both ears 2022 Subacute cough 10/06/2022 Blurring of visual image 10/01/2022 Breast discharge 10/01/2022 Chronic vulvovaginitis 10/01/2022 Foot callus 10/01/2022 Foot pain 10/01/2022 Hip pain 10/01/2022 Essential hypertension 10/01/2022 Assessment & Plan (04/05/2024 3:38 PM EDT): Today blood pressure is elevated likely because of pain, I advise low Na diet continue with same medication regimen I increase her atorvastatin to 80mg due to high ASCVD risk Assessment & Plan (10/07/2023 4:41 PM EDT): Slightly elevated I advice low Na diet and to take her medications every day, monitor BP at home and report back Assessment & Plan (05/30/2023 4:06 PM EST): Patient is known to have high blood pressure readings, her BP fluctuates, I advise low Na diet, she is already losing some weight I advise not to miss her medications Continue to follow with cardiology Assessment & Plan (02/23/2023 3:03 PM EDT): - Aerobic exercise to reduce BP. Initial goal of 30 min walk 3-5x/week. Increase as tolerated. - low-sodium diet (goal: <2g/day) and heart healthy diet such as DASH to reduce BP and prevent ASCVD. - Home BP monitoring 1-2 x day with goal of <140/90. - Seek immediate medical attention for chest pain, palpitations, SOB, syncope, or sudden changes in mental status. - Do not change or discontinue current prescriptions without first consulting health care provider Assessment & Plan (11/24/2022 4:45 PM EDT): I prescribed a wrist BP kit I advise to monitor BP then RTC 1 week with nurse for BP check if still high Ill adjust her medications Assessment & Plan (10/06/2022 11:27 AM EDT): Maintenance: BMP: ordered Lipid Panel: ordered - Aerobic exercise to reduce BP. Initial goal of 30 min walk 3-5x/week. Increase as tolerated. - low-sodium diet (goal: <2g/day) and heart healthy diet such as DASH to reduce BP and prevent ASCVD. - Home BP monitoring 1-2 x day with goal of <140/90. - Seek immediate medical attention for chest pain, palpitations, SOB, syncope, or sudden changes in mental status. -I increase nifedipine to 60mg daily - Do not change or discontinue current prescriptions without first consulting health care provider [place] 10/01/2022 Moderate persistent asthma without complication 10/01/2022 Assessment & Plan (04/05/2024 3:40 PM EDT): Stable c/w same interventions Palpitations 10/01/2022 Vascular insufficiency 10/01/2022 Mood disorder 08/31/2022 Complex renal cyst 08/31/2022 Fibromyalgia 08/31/2022 Assessment & Plan (01/07/2024 11:45 AM EDT): Patient was educated about multidisciplinary approach for her condition, it was advise cardiovascular exercise, maintain hydration, treat anxiety/depression and take medications as directed Assessment & Plan (09/05/2022 5:58 PM EDT): -Will order XR for further eval as requested, although low suspicion for fx Type 2 diabetes mellitus wit h hyperglycemia, without long-term current use of insulin 05/23/2018 Assessment & Plan (06/11/2024 4:02 PM EST): Diabetes is: almost at goal - Lab Results Component Value Date HGBA1C 6.9 (A) 04/05/2024 HGBA1C 6.5 (A) 01/06/2024 HGBA1C 6.3 (A) 05/30/2023 - Lab Results Component Value Date MICROALBUR 204.8 07/20/2021 CREATININE 0.89 01/10/2024 -Changes: none - Diabetic eye exam:up o date - Diabetic foot exam:up to date - Continue lifestyle modifications - Continue current medications - Follow up: 3 months Assessment & Plan (04/05/2024 3:39 PM EDT): Diabetes is: controlled - Lab Results Component Value Date HGBA1C 6.9 (A) 04/05/2024 HGBA1C 6.5 (A) 01/06/2024 HGBA1C 6.3 (A) 05/30/2023 - Lab Results Component Value Date MICROALBUR 204.8 07/20/2021 CREATININE 0.89 01/10/2024 -Changes: c/w same medications - Diabetic eye exam: pending - Diabetic foot exam:pending - Continue lifestyle modifications - Continue current medications - Follow up: 3 months Assessment & Plan (01/07/2024 11:44 AM EDT): Diabetes is: controlled - Lab Results Component Value Date HGBA1C 6.5 (A) 01/06/2024 HGBA1C 6.3 (A) 05/30/2023 HGBA1C 6.3 (A) 02/23/2023 - Lab Results Component Value Date MICROALBUR 204.8 07/20/2021 CREATININE 0.75 10/25/2023 -Changes: none - Diabetic eye exam:up to date - Diabetic foot exam:pending - Continue lifestyle modifications - Continue current medications - Follow up: 3 months Assessment & Plan (10/07/2023 4:42 PM EDT): Diabetes is: controlled - Lab Results Component Value Date HGBA1C 6.3 (A) 05/30/2023 HGBA1C 6.3 (A) 02/23/2023 HGBA1C 9.0 (A) 11/24/2022 - Lab Results Component Value Date MICROALBUR 204.8 07/20/2021 CREATININE 0.96 10/11/2022 -Changes: none - Diabetic eye exam:up to date - Diabetic foot exam:referral done - Continue lifestyle modifications - Continue current medications - Follow up: 3 months Assessment & Plan (02/23/2023 3:02 PM EDT): - Lab Results Component Value Date HGBA1C 6.3 (A) 02/23/2023 HGBA1C 9.0 (A) 11/24/2022 HGBA1C 9.1 (A) 10/06/2022 - Lab Results Component Value Date MICROALBUR 204.8 07/20/2021 CREATININE 0.96 10/11/2022 - - Continue lifestyle modifications - Continue current medications Assessment & Plan (11/24/2022 4:44 PM EDT): I increase trulicity to 1.5mg weekly C/w rest of interventions Assessment & Plan (10/06/2022 11:28 AM EDT): A1c 9 - Lab Results Component Value Date HGBA1C 7.7 (H) 07/20/2021 HGBA1C 6.5 (H) 09/19/2020 - Lab Results Component Value Date MICROALBUR 204.8 07/20/2021 CREATININE 0.76 03/03/2021 - - Diabetic eye exam: - Diabetic foot exam: - Continue lifestyle modifications - Continue current medications, I added today trulicity 0.75mg weekly Carpal tunnel syndrome 04/07/2018 Cubital tunnel syndrome 04/07/2018 Hyperlipidemia 04/15/2016 Microalbuminuric diabetic nephropathy 04/15/2016 Burn scar contracture of upper arm 06/01/2013 Hypertension 06/01/2013 Morbid obesity 06/01/2013 Chronic pain 06/01/2013 Depressive disorder 06/01/2013 Encounters Date Type Department Care Team Description 07/09/2024 Refill [facility] [address] [place] [address] Pretty Molina MD Other chronic pain 07/01/2024 Refill [facility] [address], [place] [phone] Cristian Briones CNM 06/25/2024 Refill [facility] [address] [place], [place] [phone] Pretty Molina MD Primary hypertension 06/20/2024 Refill [facility] [address] [place] [address] Noemi Schwartz MD Seasonal allergies 06/16/2024 Refill [facility] [address] [place] [address] Pretty Molina MD Neuropathy 06/11/2024 2:00 PM EST Office Visit [address] [phone] Pretty Molina MD Chronic cough (Primary Dx); Type 2 diabetes mellitus with hyperglycemia, without long-term current use of insulin (CMS/HCC); Encounter for screening mammogram for malignant neoplasm of breast; Tobacco dependence; Encounter for preventive care 06/11/2024 Travel 06/08/[address] [phone] Vicki Ghosh MA Chart Prep 06/07/[address] [phone] Mauro Frye MA DME from [facility] 06/06/2024 Refill [facility] [address] [place] [address] Pretty Molina MD Type 2 diabetes mellitus with hyperglycemia, without long-term current use of insulin (CMS/HCC) 06/05/2024 10:30 AM EST Clinical Support [address] [phone] Sandra Boyd RN Other chronic pain (Primary Dx) 06/05/2024 Refill [facility] [address] [place] [phone] Sandra Boyd RN Other chronic pain 06/05/2024 Refill [facility] [address] [place] [phone] Pretty Molina MD Type 2 diabetes mellitus with hyperglycemia, without long-term current use of insulin (CMS/HCC) 06/05/2024 Travel 06/05/[address] [phone] Sandra Boyd, TONY Recommend [employer] Tier 3 05/30/2024 Patient Outreach [address] [place] [address] Pretty Molina MD Pre-visit Planning ([facility] screening completed on 12/28/2023) 05/25/2024 Telephone [facility] [address] [place] [phone] Frye, MaikelCRISTIN brownlee DME from [facility] 05/22/2024 Refill [facility] [address] [place] [phone] Pretty Molina MD 05/20/2024 Refill [facility] [address] [place] [address] Pretty Molina MD Type 2 diabetes mellitus with other specified complication, unspecified whether usp insulin use (CMS/[facility]) 05/16/2024 Refill [facility] [address] [place] [address] Pretty Molina MD 05/08/2024 Telephone [facility] [address] [place] [phone] Pretty Molina MD Med Refill 05/07/2024 Refill [facility] [address] [place] [address] Pretty Molina MD Other chronic pain 05/04/2024 Telephone [facility] [address] [place] [phone] Pretty Molina MD Appointment Request 04/30/2024 Refill [facility] [address] [place] [phone] Pretty Molina MD Neuropathy 04/27/2024 11:00 AM EST Office Visit [facility] [address] [place] [phone] Pretty Molina MD Moderate persistent asthma with exacerbation (Primary Dx); Type 2 diabetes mellitus with hyperglycemia, without long-term current use of insulin (CMS/[facility]); RSV (respiratory syncytial virus pneumonia) 04/27/2024 Travel 04/26/2024 Telephone [facility] [address] [place] [phone] Pretty Molina MD Nurse Triage 04/26/2024 Refill [facility] [address] [place] [address] Pretty Molina MD Vitamin D deficiency 04/24/2024 Orders Only [facility] External Provider, [facility] 04/21/2024 Refill [facility] [address] [place] [phone] Pretty Molina MD Neuropathy 04/19/2024 3:20 PM EST Office Visit [facility] [address] [place] [phone] Lorena Wilson NP Wheezing on auscultation (Primary Dx); Cough in adult patient 04/16/[address] [address] Pretty Molina MD Durable Medical Equipment 04/15/2024 Refill [facility] [address] [place] [address] Pretty Molina MD 04/12/2024 1:00 PM EDT Clinical Support [facility] [address] [place] [phone] Sandra Boyd RN Chronic pain syndrome (Primary Dx); Other chronic pain 04/12/[address] [phone] Mandy Coffey RN 04/12/2024 Travel 04/11/2024 Telephone [facility] [address] [place] [phone] Pretty Molina MD Durable Medical Equipment from Last 3 Months Immunizations Name Administration Dates Next Due Hep B, adult 08/26/2016,05/27/2016,04/27/2016 Influenza injectable quadriv alent IIV4 with preservative 03/07/2018,04/15/2016 Influenza injectable quadriv alent preservative free 04/15/2022,03/28/2020,03/08/2019,2016,03/24/2015 Influenza, IIV3, injectable 02/22/2014 Influenza, seasonal, injecta ble, preservative free 04/05/2024 RSV Bivalent 06/03/2023 Tdap 04/15/2016 Zoster, Recombinant 08/17/2023,06/16/2023 Social History Tobacco Use Types Packs/Day Years Used Date Smoking Tobacco: Some Days Cigarettes Passive Smoke Exposure: Current Smokeless Tobacco: Never Tobacco Cessation:Ready to Q uit: Not Asked; Counseling Given: Not Answered Alcohol Use Standard Drinks/Week Comments Not Currently [...] the past 12 months, has t he [employer], gas, oil or water company threatened to [...] Orientation Straight 04/12/2022 10 :19 AM EDT Last Filed Vital Signs Vital Sign Reading Time Taken Comments Blood Pressure 157/85 06/11/2024 1:57 PM EST Pulse 77 06/11/2024 1:57 PM EST Temperature 35.6 ??C (96 ??F) 06/11/2024 1:57 PM EST Respiratory Rate 18 06/11/2024 1:57 PM EST Oxygen Saturation 99% 04/27/2024 11:19 AM EST Inhaled Oxygen Concentration - - Weight 94.3 kg (208 lb) 06/11/2024 1:57 PM EST Height 157.5 cm (5' 2 ) 06/11/2024 1:57 PM EST Body Mass Index 38.04 06/11/2024 1:57 PM EST Plan of Treatment Upcoming Encounters Date Type Department Care Team (Late st Contact Info) Description 07/23/2024 1:00 PM EST Medication Management [facility] [address] [place] [phone] Guero Burns, PharmD [address] [place] [address] 10/04/2024 1:00 PM EDT Clinical Support [facility] [address] [place] [phone] Sandra Boyd, RN Health Maintenance Due Date Last Done Comments CT Colonography 1961 Colonoscopy 1961 Colorectal Cancer Screening 1961 FIT DNA/Cologuard 1961 FIT 1961 FOBT 1961 Sigmoidoscopy 1961 Pneumococcal Vaccine: Pediatrics (0 to 5 Years) and At-Risk Patients (6 to 49) Years) (1 of 2 - PCV) 1967 Diabetes: Foot Exam 1971 Eye Exam 1971 Alcohol/Substance Use Screening 1973 Hepatitis A Vaccines (1 of 2 - Risk 2-dose series) 1980 COVID-19 Vaccine ( season) 2024 10/30/2020, 10/02/2020 Mammogram 03/16/2024 03/16/2023, 02/12, 08/04/2020, Additional history exists Diabetes: Hemoglobin A1C 10/04/2024 024, 01/06/2024, 05/30/2023, Additional history exists SDOH Screening 12/27/2024 12/28/2023 Depression Screening 01/05/2025 01/06/2024, 01/06/20 Lipid Panel 01/09/2025 01/10/2024, 05/0 06/2022, 07/20/2021, Additional history exists Tobacco Screening 06/11/2025 06/11/2024 DTaP/Tdap/Td Vaccines (2 - Td or Tdap) 04/15/2026 04/15/2016 Pap Smear 04/18/2026 04/18/2023 Cervical Cancer Screening 04/18/2028 HPV/Cotest 04/18/2028 04/18/2023, 04/19/2018 Hepatitis B Vaccines Completed 08/26/2016, 05/27/2016, 04/27/2016 HIV Screening Completed 02/03/2021 Hepatitis C Screening Completed 02/03/2021 RSV Patients and Patients Aged 60 years or older Completed 06/03/2023 Zoster Vaccines Completed 08/17/2023, 06/16/2023 Influenza Vaccine Completed 04/05/2024, , 03/28/2020, Additional history exists HIB Vaccines Aged Out No longer eligi ble based on patient's age to complete this topic HPV Vaccines Aged Out No longer eligi ble based on patient's age to complete this topic IPV Vaccines Aged Out No longer eligi ble based on patient's age to complete this topic Meningococcal Vaccine Aged Out No herber jaguar eligible based on patient's age to complete this topic RSV under 20 months Aged Out No longe r eligible based on patient's age to complete this topic Rotavirus Vaccines Aged Out No longer eligible based on patient's age to complete this topic Procedures Procedure Name Priority Date/Time Associated Diagnosis Comments POCT GLUCOSE Routine 06/11/2024 1:58 PM EST Type 2 diabetes mellitus with hyperglycemia, without long-term current use of insulin ([facility]) POCT HECTOR-14 URINE DRUG SCREEN Routine 06/05/2024 10:01 AM EST Other chronic pain POCT GLUCOSE Routine 04/27/2024 11:24 AM EST Type 2 diabetes mellitus with hyperglycemia, without long-term current use of insulin (CMS/HCC) CT CHEST WO CONTRAST Routine 04/24/2024 9:30 PM EST POCT INFLUENZA B (ID NOW RAPID MOLECULAR) Routine 04/19/2024 2:56 PM EST Cough in adult patient POCT INFLUENZA A (ID NOW RAPID MOLECULAR) Routine 04/19/2024 2:56 PM EST Cough in adult patient POCT RAPID COVID ANTIGEN Routine 04/19/2024 2:56 PM EST Cough in adult patient POCT HECTOR-14 URINE DRUG SCREEN Routine 04/12/2024 1:16 PM EDT Chronic pain syndrome US PELVIS TRANSVAGINAL Routine 04/10/2024 1:56 PM EDT POCT GLYCATED HEMOGLOBIN, TOTAL Routine 04/05/2024 3:05 PM EDT Type 2 diabetes mellitus with hyperglycemia, without long-term current use of insulin (CMS/HCC) LIPID PANEL WITH REFLEX TO DIRECT LDL Routine 01/10/2024 8:26 AM EDT Essential hypertension HPV MRNA E6/E7 REFLEX TO HPV 16, 18/45 Routine 04/18/2023 2:08 PM EST PAP SMEAR Routine 04/18/2023 2:08 PM EST BI MAMMOGRAM SCREENING TOMOSYNTHESIS BILATERAL Routine 03/16/2023 3:02 PM EDT ZZZ HISTORICAL HEPATITIS C ANTIBODY Routine 02/03/2021 12:01 PM EDT from Last 3 Months or Most Recently Relevant to Health Maintenance Results * POCT Glucose (06/11/2024 1:58 PM EST) Only the most recent of2 resultswithin the time period is included. Pathologist [facility] Glucose Blood, POC 103 60 - 200 mg/dL QC Media Lot # [id number] Lot# Expiration Date Blood Capillary blood specimen / Unknown 06/11/2024 1:58 PM EST Pretty Zayas MD POINT OF CARE TEST EN TER/EDIT ORDERABLES Final Result * POCT HECTOR-14 Urine Drug Screen (06/05/2024 10:01 AM EST) Only the most recent of2 resultswithin the time period is included. Pathologist [facility] Oxycodone Screen, Urine Positive Urine Urine specimen obtained by clean catch procedure / Unknown 06/05/2024 10:01 AM EST Narrative Sandra Boyd RN - 06/05/2024 10:01 AM EST UTOX cup Lot#[id number] Exp. 03/07/26 Internal Pass Control us Pretty Zayas MD POINT OF CARE TEST EN TER/EDIT ORDERABLES Final Result * CT Chest w/o Contrast (04/24/2024 9:30 PM EST) Anatomical Region Laterality Modality Body, Chest Computed Tomogra phy 04/24/2024 9:30 PM EST Narrative 04/24/2024 11:17 PM EST ? [facility] ?[address] ?[place] [address] ? CT Scan Report ? Signed ? Patient: Naida,Violet ?MR#: [id number] ?? [id number] ? : 1960 ?Acct:[id number] ? Age/Sex: 64 / F ?ADM Date: 11/12/24 ? Loc: HO.ED ? Attending Dr: ? Ordering Physician: Ashlie Rust CNP ?? Date of Service: 04/24/24 ?? Procedure(s): CT chest wo IV con ?? Accession Number(s): [id number] ? cc: Pretty Molina MD; Ashlie Rust CNP ? EXAMINATION: ?? CT CHEST WITHOUT CONTRAST ? CLINICAL INFORMATION: ?? RSV, SOB, ?PNA ? COMPARISON: ?? Chest x-ray April 22, 2024 ? TECHNIQUE: ?? Multidetector volumetric CT imaging of the chest was done. Axial MIP ?? volume rendering provided. Sagittal and coronal reformatted images were ?? obtained. ? This CT examination was performed using dose optimization techniques as ?? appropriate, variously including the following: ?? *Automated exposure control ?? *Adjustment of mA and/or kV according to patient size (this includes ?? techniques or standardized protocols for targeted exams where dose is ?? matched to indication/reason for exam; i.e. extremities or head) ?? *Use of iterative reconstruction technique ? DLP: ?? 362 mGy-cm ? FINDINGS: ? LUNGS: Multifocal scattered groundglass opacities in the lungs ?? bilateral. This is nonspecific but consistent with inflammatory/ ?? infectious etiology given patient history. ??No dense consolidation. ?? Central bronchial airways are open. There is no bronchiectasis. ? MEDIASTINUM: No bulky lymphadenopathy. 0.9 cm lymph node in the ?? pretracheal retrovascular space and a few smaller shotty lymph nodes at ?? the AP window and subcarinal. ? Heart size normal. No pericardial effusion. ? CORONARY ARTERY CALCIFICATION: Small volume of coronary calcification. ? PLEURA: There is no pleural effusion. No pleural mass or thickening. ? AXILLA: No lymphadenopathy. ? UPPER ABDOMEN: Enlarged left adrenal gland measuring 2.7 x 1.9 cm. ?? Density measurement 2 Hounsfield units consistent with adrenal adenoma. ?? No further follow-up imaging recommended. Left Adrenal adenoma ?? unchanged since CAT scan May 10, 2022. ?? Normal right adrenal gland. ? OSSEOUS STRUCTURES: Unremarkable. ? CT/CT chest wo IV con ?? IMPRESSION: ?? 1. ??Multifocal scattered groundglass opacities in the lungs bilateral. ?? This is nonspecific but consistent with inflammatory/infectious ?? etiology given patient history. No dense consolidation. ? Fleischner guidelines were followed. ? Electronically signed by: ??Lavelle Kendall MD ??04/24/2024 11:13 PM EST RP ? Dictated By: ?Lavelle Kendall MD ? Signed By: ?<Electronically signed by Lavelle Kendall MD in OV> ?04/24/242312 ? DD/ 29 ? TD/TT: 04/24/245 ? Channel Lip Stiffener Insoles: BREANNA ? Procedure Note Donotuseinterpreter, Image - 04/24/[address] [address] [address] Scan Report Signed Patient: Abraham Pascal#: [id number] : 1960cct:[id number] Age/Sex: 64 / FADM Date: 04/24/24 Loc: HO.ED Attending Dr: Ordering Physician: Ashlie Rust CNP Date of Service: 04/24/24 Procedure(s): CT chest wo IV con Accession Number(s): [id number] cc: Pretty Molina MD; Ashlie Rust CNP EXAMINATION: CT CHEST WITHOUT CONTRAST CLINICAL INFORMATION: RSV, SOB, ?PNA COMPARISON: Chest x-ray April 22, 2024 TECHNIQUE: Multidetector volumetric CT imaging of the chest was done. Axial MIP volume rendering provided. Sagittal and coronal reformatted images were obtained. This CT examination was performed using dose optimization techniques as appropriate, variously including the following: *Automated exposure control *Adjustment of mA and/or kV according to patient size (this includes techniques or standardized protocols for targeted exams where dose is matched to indication/reason for exam; i.e. extremities or head) *Use of iterative reconstruction technique DLP: 362 mGy-cm FINDINGS: LUNGS: Multifocal scattered groundglass opacities in the lungs bilateral. This is nonspecific but consistent with inflammatory/ infectious etiology given patient history. No dense consolidation. Central bronchial airways are open. There is no bronchiectasis. MEDIASTINUM: No bulky lymphadenopathy. 0.9 cm lymph node in the pretracheal retrovascular space and a few smaller shotty lymph nodes at the AP window and subcarinal. Heart size normal. No pericardial effusion. CORONARY ARTERY CALCIFICATION: Small volume of coronary calcification. PLEURA: There is no pleural effusion. No pleural mass or thickening. AXILLA: No lymphadenopathy. UPPER ABDOMEN: Enlarged left adrenal gland measuring 2.7 x 1.9 cm. Density measurement 2 Hounsfield units consistent with adrenal adenoma. No further follow-up imaging recommended. Left Adrenal adenoma unchanged since CAT scan May 10, 2022. Normal right adrenal gland. OSSEOUS STRUCTURES: Unremarkable. CT/CT chest wo IV con IMPRESSION: 1. Multifocal scattered groundglass opacities in the lungs bilateral. This is nonspecific but consistent with inflammatory/infectious etiology given patient history. No dense consolidation. Fleischner guidelines were followed. Electronically signed by: Lavelle Kendall MD 04/24/2024 11:13 PM EST Dictated By: Lavelle Kendall MD Signed By: <Electronically signed by Lavelle Kendall MD in OV> 04/24/248 DD/ 29 TD/TT: 04/24/242144 Channel Lip Stiffener Insoles: BREANNA [facility] External Provider IMG CT PROCEDURES Edited Result - Final * Influenza B (ID NOW Rapid Molecular) (04/19/2024 2:56 PM EST) Influenza B Negative Negative, Indeterminate [facility] Swab 04/19/2024 2:56 PM EST [facility] Lavern GAS APPLIANCE INSTALLER POINT OF CARE TEST ENTER/EDIT O RDERABLES Final Result Performing Organization Address [facility] Co de Phone Number [facility] [address] [place] [phone] * Influenza A (ID NOW Rapid Molecular) (04/19/2024 2:56 PM EST) Influenza A Negative Negative, Indeterminate [facility] Swab 04/19/2024 2:56 PM EST [facility] Appra GAS APPLIANCE INSTALLER POINT OF CARE TEST ENTER/EDIT O RDERABLES Final Result Performing Organization Address [facility] Co de Phone Number [facility] [address] [place] [address] [phone] * POCT Rapid COVID Ag (04/19/2024 2:56 PM EST) Rapid COVID Ag Negative Swab 04/19/2024 2:56 PM EST us Lorena Appram G[employer] APPLIANCE INSTALLER POINT OF CARE TEST ENTER/EDIT O RDERABLES Final Result * US Pelvis Transvaginal (04/10/2024 1:56 PM EDT) Anatomical Region Laterality Modality Pelvis Ultrasound 04/10/2024 1:56 PM EDT Narrative 06/05/2024 11:59 AM EST ? [facility] ?[address] ?[place] [address] ? Ultrasound Report ? Signed ? Patient: Naida,Violet ?MR#: [id number] ?? [id number] ? : 1960 ?Acct:[id number] ? Age/Sex: 64 / F ?ADM Date: 04/10/24 ? Loc: HO.US ? Attending Dr: Ramesh Gurrola MD ? Ordering Physician: Ramesh Gurrola MD ?? Date of Service: 04/10/24 ?? Procedure(s): US pelvic and transvaginal ?? Accession Number(s): [id number] ? cc: Pretty Molina MD; Ramesh Gurrola MD ? EXAMINATION: ? US PELVIS ? CLINICAL INFORMATION: ? Pelvic and perineal pain ? COMPARISON: ?? CT abdomen pelvis 05/10/2022, pelvic ultrasound 12/23/2021 ? TECHNIQUE: ?? Ultrasound of the pelvis is performed using both transabdominal and ?? transvaginal transducers along with Doppler. Transvaginal imaging is ?? performed due to inadequate visualization transabdominally. ? FINDINGS: ?? Uterus: ?? The uterus is anteverted and measures 7.4 x 2.9 x 3.7 cm. ? The double wall endometrial thickness is 6 mm. ? The uterus is smooth in contour and has normal myometrial echogenicity. ?There is a 1.0 x 1.4 x 1.3 cm fibroid at the fundus on the left. ?? Nabothian cysts are present in the cervix, some complex ? Adnexa: ?? The right ovary measures 2.4 x 0.8 x 1.7 cm for a volume 1.8 cc and ?? contains a few punctate calcifications. ?? Left ovary was not seen. ? US/US pelvic and transvaginal ?? IMPRESSION: ?? 1. ??Small uterine fibroid. ?? 2. ??Left ovary not seen. ? Electronically signed by: ??Ruben Peterson MD ??06/05/2024 11:56 AM EST ?? RP ? Dictated By: ?Ruben Peterson MD ? Signed By: ?<Electronically signed by Ruben Peterson MD in OV> ? 06/05/24 1156 ? DD/ 1356 ? TD/TT: 04/10/24 1408 ? Channel Lip Stiffener Insoles: SS ? Procedure Note Gila Parr - 06/05/2024 [place] [address] Ultrasound Report Signed Patient: Abraham Pascal#: [id number] : 1960cct:[id number] Age/Sex: 64 / FADM Date: 04/10/24 Loc: HO.US Attending Dr: Ramesh Gurrola MD Ordering Physician: Ramesh Gurrola MD Date of Service: 04/10/24 Procedure(s): US pelvic and transvaginal Accession Number(s): [id number] cc: Pretty Molina MD; Ramesh Gurrola MD EXAMINATION: US PELVIS CLINICAL INFORMATION: Pelvic and perineal pain COMPARISON: CT abdomen pelvis 05/10/2022, pelvic ultrasound 12/23/2021 TECHNIQUE: Ultrasound of the pelvis is performed using both transabdominal and transvaginal transducers along with Doppler. Transvaginal imaging is performed due to inadequate visualization transabdominally. FINDINGS: Uterus: The uterus is anteverted and measures 7.4 x 2.9 x 3.7 cm. The double wall endometrial thickness is 6 mm. The uterus is smooth in contour and has normal myometrial echogenicity. There is a 1.0 x 1.4 x 1.3 cm fibroid at the fundus on the left. Nabothian cysts are present in the cervix, some complex Adnexa: The right ovary measures 2.4 x 0.8 x 1.7 cm for a volume 1.8 cc and contains a few punctate calcifications. Left ovary was not seen. US/US pelvic and transvaginal IMPRESSION: 1. Small uterine fibroid. 2. Left ovary not seen. Electronically signed by: Ruben Peterson MD 06/05/2024 11:56 AM [facility] Dictated By: Ruben Peterson MD Signed By: <Electronically signed by Ruben Peterson MD in OV> 06/05/24 1156 DD/ 1356 TD/TT: 04/10/24 1408 Channel Lip Stiffener Insoles: SS [facility] External Provider IMG US PROCEDURES Edited Result - Final * (ABNORMAL) POCT HGB A1C (04/05/2024 3:05 PM EDT) Hemoglobin A1C 6.9(A) 4.0 - 6.0 % QC Media Lot # [id number] Lot# Expiration Date [id number] Blood 04/05/2024 3:05 PM EDT Pretty Zayas MD POINT OF CARE TEST EN TER/EDIT ORDERABLES Final Result * Lipid Panel with Reflex to Direct LDL (01/10/2024 8:26 AM EDT) Triglycerides 140 <150 mg/dL [facility] Comment:Desirable Triglyceri de: less than 150 mg/dLBorderline High Triglyceride 150-199 mg/dLHigh Triglyceride: 200-499 mg/dLVery High Triglyceride: greater than or equal to 5OO mg/dL Cholesterol 155 <200 mg/dL [facility] Comment:Desirable Cholestero l: less than 200 mg/dLBorderline High Cholesterol: 200-239 mg/dLHigh Cholesterol: greater than 239 mg/dL LDL Cholesterol Calculated 80 <100 mg/dL [facility] Comment:Desirable LDL: less than 100 mg/dLNear Optimal/Above Optimal LDL: 110- 129 mg/dLBorderline High LDL: 130-159 mg/dLHigh LDL: 160-189 mg/dLVery High LDL: greater than or equal to 190 mg/dL HDL Cholesterol 47 >40 mg/dL [facility] Comment:Desirable HDL: great er than 40 mg/dL Note: This HDL assay may give artificially low results in patients with liver disease. Blood 01/10/2024 8:26 AM EDT 01/10/2024 11:20 AM EDT Pretty Zayas MD LAB BLOOD ORDERABLES Final Result [facility] [address] [place] [address] [phone] * HPV mRNA E6/E7 w/Reflex to HPV Genotypes 16, 18/45 (04/18/2023 2:08 PM EST) HPV nRNA E6/E7 Not Detected Not Detected [facility] Comment:Methodology: Transcr iption-Mediated AmplificationThis assay detects E6/E7 viral messenger RNA (mRNA) from 14high-risk HPV types (16,18,31,33,35,39,45,51,52,56,58,59,66,68).Cervical sources are required for HPV testing.If a vaginal source from a patient who has had atotal hysterectomy with removal of cervix wassubmitted, please contact the testing laboratoryfor alternative testing options.For additional information, please refer tohttp://education.Productify/faq/VKP245r6(This link if provided for information/educational purposes only.)THIS TEST WAS PERFORMED AT:[facility] [place] [phone] ANNE MD HPV mRNA E6/E7 TNP [facility] HPV 16 RNA [facility] HPV 18/45 RNA [facility] 04/18/2023 2:08 PM EST 04/19/2023 8:20 AM EST [facility]ian [facility] CYTOLOGY ORDERABLES F inal Result [facility] [address] [place] [phone] * Pap Smear (04/18/2023 2:08 PM EST) 04/18/2023 2:08 PM EST 04/19/2023 8:20 AM EST Narrative [facility] - 04/26/2023 1:40 PM EST ----- ------- Name: Violet Pascal ? Age/Sex: 63/F ? : 1960 Unit#: [id number] ?? Attend Dr: CRISTIAN BRIONES CNM ?Re04/18/23 ?Status: DEP REF ? Location: HO.HHCLNP ? Disch: ? ----- ------- SPEC : [id number] ?RECD: 04/19/23 ? STATUS: ??SOUT ? REQ NUM: [id number] ? YASMINE: 04/18/23 ? SUBM DR: CRISTIAN BRIONES CNGeovanni ? ENTERED: ??04/19/23 ?SP TYPE: Pap Smr ?OTHR DR: ? ORDERED: ??Pap Smear ? Interpretation ?? Satisfactory for evaluation. ?? No endocervical cells seen. ?? Cytolysis noted. ?? Negative for intraepithelial lesion or malignancy. ?HPV mRNA E6/E7: ?NOT DETECTED ? This assay detects E6/E7 viral messenger RNA (mRNA) from 14 high-risk HPV types (16, 18, ?? 31, 33, 35, 39, 45, 51, 52, 56, 58, 59, 66, 68) ?? HPV testing performed by [facility], [place], [place]. ??See reference laboratory ?? pion of the EMR for entire report. ?Clinical Information LMP: Postmenopausal Previous PAP test: Unknown date/findings ? Material Received ?? ThinPrep-Cervical ----- ------- Signed (signature on file) MARIOLA Walker ([facility]) 04/26/23 1340 ? ----- ------- ? END OF REPORT ? us Cristian Briones [facility] CYTOLOGY ORDERABLES F inal Result [facility] [address] [place] [address] [phone] * BI Mammogram Screening Tomosynthesis Bilateral (03/16/2023 3:02 PM EDT) Anatomical Region Laterality Modality Breast Bilateral Mammography 03/16/2023 3:02 PM EDT Narrative 04/06/2023 11:34 PM EDT ? [facility] ? [address] ?[place] [address] ? Mammography Report ? Signed ? Patient: Violet Pascal ?MR#: [id number] ?? [id number] ? : 1960 ?Acct:[id number] ? Age/Sex: 63 / F ?ADM Date: 10/04/23 ? Loc: HO.MAMMO ? Attending Dr: Pretty Zayas MD ? Ordering Physician: Pretty Molina MD ?Results: ?? 2Benign Findings ? Date of Service: 03/16/23 ?Follow Up: 1 Year From Orig ?? inal Mammogram ? Procedure(s): MM tomosynthesis screening BI ?? Accession Number(s): [id number] ? cc: Pretty Molina MD ? EXAMINATION: ?? MM SCREENING DIGITAL BREAST TOMOSYNTHESIS, BILATERAL ? CLINICAL INFORMATION: ? Screening. Asymptomatic. ? The patient has a history of prior right breast surgery for benign ?? disease. ? COMPARISON: ?? Mammography: This study is compared with prior exams dating back to ? TECHNIQUE: ?? Digital breast tomosynthesis is performed in both the craniocaudal and ?? mediolateral oblique views along with computer-aided detection (CAD). ?? Synthesized 2D images are generated from the tomosynthesis. ? FINDINGS: ?? The breasts are almost entirely fatty (ACR BI-RADS breast composition ?? Category a). ? There are no significant masses, abnormal calcifications, or other ?? abnormalities. ?? There are architectural changes in the right breast from prior surgery. ?? These include breast deformity and benign, dystrophic calcifications. ? MM/MM tomosynthesis screening BI ?? IMPRESSION: ?? No mammographic evidence of malignancy. ? ASSESSMENT: ? BI-RADS BI-RADS 2 - Benign Findings ? RECOMMENDATION: ?? Routine annual mammography screening. ? 1 year F/U ? This examination should not preclude the clinical evaluation of a ?? suspicious palpable abnormality. ? This patient's information was entered into a reminder system with a ?? target due date for their next mammogram. ? Dictated By: ?Kimberlyn Anderson MD ? Signed By: ?<Electronically signed by Kimberlyn Anderson MD in OV> ? 04/06/234 ? DD/ 1502 ? TD/TT: ? Channel Lip Stiffener Insoles: ? Procedure Note Donotuseinterpreter, Image - 04/06/2023 [place] [facility] [address] [place] [address] Mammography Report Signed Patient: Abraham Pascal#: [id number] : 1960cct:[id number] Age/Sex: 63 / FADM Date: 03/16/23 Loc: HO.MAMMO Attending Dr: Pretty Zayas MD Ordering Physician: Pretty Molina MDResults: 2Benign Findings Date of Service: 03/16/23Follow Up: 1 Year From Orig inal Mammogram Procedure(s): MM tomosynthesis screening BI Accession Number(s): [id number] cc: Pretty Molina MD EXAMINATION: MM SCREENING DIGITAL BREAST TOMOSYNTHESIS, BILATERAL CLINICAL INFORMATION: Screening. Asymptomatic. The patient has a history of prior right breast surgery for benign disease. COMPARISON: Mammography: This study is compared with prior exams dating back to TECHNIQUE: Digital breast tomosynthesis is performed in both the craniocaudal and mediolateral oblique views along with computer-aided detection (CAD). Synthesized 2D images are generated from the tomosynthesis. FINDINGS: The breasts are almost entirely fatty (ACR BI-RADS breast composition Category a). There are no significant masses, abnormal calcifications, or other abnormalities. There are architectural changes in the right breast from prior surgery. These include breast deformity and benign, dystrophic calcifications. MM/MM tomosynthesis screening BI IMPRESSION: No mammographic evidence of malignancy. ASSESSMENT: BI-RADS BI-RADS 2 - Benign Findings RECOMMENDATION: Routine annual mammography screening. 1 year F/U This examination should not preclude the clinical evaluation of a suspicious palpable abnormality. This patient's information was entered into a reminder system with a target due date for their next mammogram. Dictated By: Kimberlyn Anderson MD Signed By: <Electronically signed by Kimberlyn Anderson MD in OV> 04/06/23 2304 DD/ 1502 TD/TT: Channel Lip Stiffener Insoles: us Pretty Zayas MD IMG BI PROCEDURES Fadi tiara Result - Final * Hepatitis C Antibody (02/03/2021 12:01 PM EDT) Hepatitis C Antibody Nonreactive Nonreactive [facility] Comment: Antibodies to HCV not detected; does not exclude early acute HCV infection. HIV AB/AG Nonreactive Nonreactive [facility] Comment: HIV-1 p24 Ag and/or HIV-1/HIV-2 Ab not detected. ?? A test result that is nonreactive does not exclude the possibility of exposure to or infection with HIV-1 and/or HIV-2. Nonreactive results in this assay for individuals with prior exposure to HIV-1 and/or HIV-2 may be due to antigen and antibody levels that are below the limit of detection of this assay. ?? The [employer] HIV Ag/Ab Combo assay result and supplemental assay results should be interpreted in conjunction with the patient's clinical presentation, history and other laboratory results. ??If the results are inconsistent with clinical evidence, additional testing is suggested to confirm the result. Hepatitis B Surface Antigen Negative Negative [facility] 02/03/2021 12:0 1 PM EDT us Ramesh Gurrola MD HISTORICAL/NON ORDERABLE LABS Fi nal Result [facility] [address] [place] [address], from Last 3 Months or Most Recently Relevant to Health Maintenance Insurance [email or web address] Care Teams Carton Folder Relationship Specialty Start Date End Date Pretty Molina MD [address] [place] [phone] PCP - General Family Medicine 12/24/20
--- OUTSIDE RECORDS SUMMARY | 2024-07-11 17:02 | XMS_ITS | Encounter Summary ---
Author Organization [employer] Address [address] [facility] [address] [place] [address] Care Team Providers Care Hand Twister Name Role Phone Pretty Molina MD Primary Care Provide r Reason for Visit * Reason Comments Med Refill Encounter Details Date Type Department Care Team (Late st Contact Info) Description 04/15/2024 Refill C [facility] [address] [place] [phone] Pretty Molina MD [address] [place] [address] Social History Tobacco Use Types Packs/Day Years [...] Description 07/23/2024 1:00 PM EST Medication Management [address] [address] Guero Burns, PharmD [address] [place] [phone] 10/04/2024 1:00 PM EDT Clinical Support [address] [phone] Sandra Boyd, RN documented as of this encounter Visit Diagnoses Not on filedocumented in this encounter Additional Health Concerns Assessment Noted Time PHQ-9 Depression Total Score: 4 01/06/20 24 2:22 PM EDT documented as of this encounter Care Teams Hand Twister Relationship Specialty Start Date End Date Pretty Molina MD [address] [place] [phone] PCP - General Family Medicine 12/24/20 documented as of this encounter
--- OUTSIDE RECORDS SUMMARY | 2024-07-11 17:02 | XMS_ITS | Encounter Summary ---
Author Organization [employer] Address [address] [facility] [address] [place] [address] Care Team Providers Care Security Coordinator Name Role Phone Pretty Molina MD Primary Care Provide r Encounter Details Date Type Department Care Team (Late st Contact Info) Description 11/12/2022 Orders Only [facility] [address] [place] [address] Jocelyn Fleming LPN Social History Tobacco Use Types Packs/Day Years Used Date Smoking Tobacco: Never Smokeless Tobacco: Never Alcohol Use Standard Drinks/Week Comments Not Currently 0 (1 standard drink = 0.6 oz pur e alcohol) Comments Unknown Sex and Gender Information Value [...] Description 07/23/2024 1:00 PM EST Medication Management [facility] MEDICINE [address] [place] [phone] Guero Burns, PharmD [address] [place], [place] [phone] 10/04/2024 1:00 PM EDT Clinical Support [facility] [address] [place], [place] [phone] Sandra Boyd RN documented as of this encounter Visit Diagnoses Not on filedocumented in this encounter Care Teams Security Coordinator Relationship Specialty Start Date End Date Pretty Molina MD [address] [place] [address] PCP - General Family Medicine 12/24/20 documented as of this encounter
--- OUTSIDE RECORDS SUMMARY | 2024-07-11 17:02 | XMS_ITS | Encounter Summary ---
Author Organization [employer] Address 75 [facility] 7t [place] [address] Care Team Providers Care Dredge Mechanic Name Role Phone Pretty Molina MD Primary Care Provide r Reason for Visit * Reason Comments Med Refill Encounter Details Date Type Department Care Team (Late Contact Info) Description 12/27/2022 Refill [facility] MEDICINE 230 [place] [address] Jocelyn Bender DO 230 [place] [address] Seasonal allergic rhinitis, unspecified trigger Social History [...] Encounters Date Type Department Care Team (Late Contact Info) Description 07/23/2024 1:00 PM EST Medication Management [address] [address] Guero Burns, PoloD 230 [place] [address] 10/04/2024 1:00 PM EDT Clinical Support [address] [address] Sandra Boyd RN documented as of this encounter Visit Diagnoses Diagnosis Seasonal allergic rhinitis, unspecified trigger documented in this encounter Additional Health Concerns Assessment Noted Time PHQ-9 Depression Total Score: 12 11/24/ 023 3:08 PM EDT documented as of this encounter Care Teams Dredge Mechanic Relationship Specialty Start Date End Date Pretty Molina MD [address] [place] [address] PCP - General Family Medicine 12/24/20 documented as of this encounter
--- OUTSIDE RECORDS SUMMARY | 2024-07-11 17:02 | XMS_ITS | Encounter Summary ---
Author Organization [employer] Address 75 [facility] 7t [place] [address] Care Team Providers Care Garment Steamer Name Role Phone Pretty Molina MD Primary Care Provide r Reason for Visit * Reason Onset Date Comments Med Refill 01/05/2023 Encounter Details Date Type Department Care Team (Late st Contact Info) Description 01/05/2023 Telephone [facility] MEDICINE 230 [place] [address] Pretty Molina MD 230 [place] [address] Med Refill Social History Tobacco Use Types Packs/Day Years [...] encounter Miscellaneous Notes * Telephone Encounter - Zhanna Newsome - 01/05/2023 9:36 AM EDT Tc from pt requesting med refill for medication oxyCODONE-acetaminophen (Percocet) 5-325 MG tablet. documented in this encounter Plan of Treatment Upcoming Encounters Date Type Department Care Team (Late st Contact Info) Description 07/23/2024 1:00 PM EST Medication Management [address] [address] Guero Burns, PoloD 230 [place] [address] 10/04/2024 1:00 PM EDT Clinical Support [address] [address] Sandra Boyd, TONY documented as of this encounter Visit Diagnoses Not on filedocumented in this encounter Additional Health Concerns Assessment Noted Time PHQ-9 Depression Total Score: 12 11/24/ 023 3:08 PM EDT documented as of this encounter Care Teams Garment Steamer Relationship Specialty Start Date End Date Pretty Molina MD [address] [place] [address] PCP - General Family Medicine 12/24/20 documented as of this encounter
--- OUTSIDE RECORDS SUMMARY | 2024-07-11 17:02 | XMS_ITS | Encounter Summary ---
Author Organization [employer] Address 75 [facility] 7t [place] [address] Care Team Providers Care Cobbler Sole Name Role Phone Pretty Molina MD Primary Care Provide r Reason for Visit * Reason Comments Med Refill Encounter Details Date Type Department Care Team (Late st Contact Info) Description 12/06/2023 Refill [facility] MEDICINE 230 [place], [place] [phone] Pretty Molina MD 230 [place], [place] [phone] Other chronic pain Social History Tobacco Use [...] Description 07/23/2024 1:00 PM EST Medication Management [address] [address] Guero Burns, PharmD [address] [place] [address] 10/04/2024 1:00 PM EDT Clinical Support [address] [address] Sandra Boyd, TONY documented as of this encounter Visit Diagnoses Diagnosis Other chronic pain documented in this encounter Additional Health Concerns Assessment Noted Time PHQ-9 Depression Total Score: 12 023 3:08 PM EDT documented as of this encounter Care Teams Cobbler Sole Relationship Specialty Start Date End Date Pretty Molina MD [address] [place] [address] PCP - General Family Medicine 12/24/20 documented as of this encounter
--- OUTSIDE RECORDS SUMMARY | 2024-07-11 17:02 | XMS_ITS | Encounter Summary ---
Author Organization [employer] Address 75 [facility] 7t [place] [address] Care Team Providers Care Circuit Walker Name Role Phone Pretty Molina MD Primary Care Provide r Reason for Visit * Reason Comments Med Refill Encounter Details Date Type Department Care Team (Late st Contact Info) Description 11/24/2022 Refill [facility] 230 [place] [address] Eliezer Richardson DDS 230 [place] [address] Social History Tobacco Use Types Packs/Day Years [...] suspected to have Coronavirus/COVID-19? No / Unsure 11/24/2022 2:55 PM EDT documented as of this encounter Miscellaneous Notes * Telephone Encounter - Eliezer Richardson DDS - 11/24/2022 9:23 AM EDT Approving, but needs appt for additional refills. documented in this encounter Plan of Treatment Upcoming Encounters Date Type Department Care Team (Late st Contact Info) Description 07/23/2024 1:00 PM EST Medication Management [address] [address] Guero Burns, PoloD 230 [place] [address] 10/04/2024 1:00 PM EDT Clinical Support [address] [address] Sandra Boyd RN documented as of this encounter Visit Diagnoses Not on filedocumented in this encounter Additional Health Concerns Assessment Noted Time PHQ-9 Depression Total Score: 12 023 3:08 PM EDT documented as of this encounter Care Teams Circuit Walker Relationship Specialty Start Date End Date Pretty Molina MD [address] [place] [address] PCP - General Family Medicine 12/24/20 documented as of this encounter
--- OUTSIDE RECORDS SUMMARY | 2024-07-11 17:02 | XMS_ITS | Encounter Summary ---
Author Organization [employer] Address 75 [facility] 7t [place] [address] Care Team Providers Care Mortgage Loan Specialist Name Role Phone Pretty Molina MD Primary Care Provide r Reason for Visit * Reason Comments Med Refill Encounter Details Date Type Department Care Team (Late st Contact Info) Description 04/05/2024 Refill [facility] MEDICINE 230 [place], [place] [phone] Pretty Molina MD 230 [place] [address] Other chronic pain Social History Tobacco Use [...] Description 07/23/2024 1:00 PM EST Medication Management [address] [address] Guero Burns, PharmD [address] [place] [address] 10/04/2024 1:00 PM EDT Clinical Support [address] [address] Sandra Boyd, RN documented as of this encounter Visit Diagnoses Diagnosis Other chronic pain documented in this encounter Additional Health Concerns Assessment Noted Time PHQ-9 Depression Total Score: 4 01/06/20 24 2:22 PM EDT documented as of this encounter Care Teams Mortgage Loan Specialist Relationship Specialty Start Date End Date Pretty Molina MD [address] [place] [address] PCP - General Family Medicine 12/24/20 documented as of this encounter
--- OUTSIDE RECORDS SUMMARY | 2024-07-11 17:02 | XMS_ITS | Encounter Summary ---
Author Organization [employer] Address 75 [facility] 7t [place] [address] Care Team Providers Care Purchasing Clerk Name Role Phone Pretty Molina MD Primary Care Provide r Reason for Visit * Reason Comments Med Refill Encounter Details Date Type Department Care Team (Late st Contact Info) Description 04/21/2024 Refill [facility] MEDICINE 230 [place], [place] [phone] Pretty Molina MD 230 [place] [address] Neuropathy Social History Tobacco Use Types Packs/Day [...] Description 07/23/2024 1:00 PM EST Medication Management [address] [address] Guero Burns, PharmD [address] [place] [address] 10/04/2024 1:00 PM EDT Clinical Support [address] [address] Sandra Boyd, RN documented as of this encounter Visit Diagnoses Diagnosis Neuropathy Mononeuritis of unspecified site documented in this encounter Additional Health Concerns Assessment Noted Time PHQ-9 Depression Total Score: 4 01/06/20 24 2:22 PM EDT documented as of this encounter Care Teams Purchasing Clerk Relationship Specialty Start Date End Date Pretty Molina MD [address] [place] [address] PCP - General Family Medicine 12/24/20 documented as of this encounter
--- OUTSIDE RECORDS SUMMARY | 2024-07-11 17:02 | XMS_ITS | Encounter Summary ---
Author Organization [employer] Address 75 [facility] 7t [place] [address] Care Team Providers Care Social Media Intern Name Role Phone Pretty Molina MD Primary Care Provide r Reason for Visit * Reason Onset Date Comments Nurse Triage 04/26/2024 Encounter Details Date Type Department Care Team ([facility] st Contact Info) Description 04/26/2024 Telephone [facility] MEDICINE 230 [place] [address] Pretty Molina MD 230 [place] [address] Nurse Triage Social History Tobacco Use Types Packs/Day Years [...] encounter Miscellaneous Notes * Telephone Encounter - Valeria Hooper LPN - 04/26/2024 12:18 PM EST Please obtain note from [facility] ED visit 04/24/24, Upcoming appt with PCP tomorrow at 11am. * Telephone Encounter - Valeira Hooper LPN - 04/26/2024 11:58 AM EST Triage call returned with BLS #[id number] Yonathan. Patient reports that she was seen on 04/19/24. Patient is reporting following her Flu shot she has been feeling delicate . Chart shows Flu given in March. Call dropped. Return call with Adult Manager Neto [phone]. Patient reports seen at [facility] and not improved with cough and congestion. Has no reported fever. Patient then reports presented to [facility] ED on 04/24/24 and was given scan of chest and labs completed. Note not in chart at this time. CT chest results only. Patient without acute shortness of breath is using inhaler as needed. Disposition reviewed and Patient in agreement with plan.ASK/PCP tomorrow at 11am with Protocol Used: Cough (Adult) Protocol-Based Disposition: See in Office or Video Visit Today Override (Final) Disposition: See in Office or Video Visit Today or Tomorrow Override Reason: No appointments available Video visit not offered Positive Triage Question: * Known COPD or other severe lung disease (i.e., bronchiectasis, cystic fibrosis, lung surgery) andsymptoms getting worse (i.e., increased sputum purulence or amount, increased breathing difficulty)< br /> * All higher-acuity triage questions were negative Care Advice Discussed: * Cough Medicines * Cough Syrup With Dextromethorphan * Coughing Spells * Prevent Dehydration * Avoid Tobacco Smoke * Reasons To Call Back - Difficulty breathing - Cough lasts more than 3 weeks - Fever lasts more than 3 days - You become worse * Telephone Encounter - Nilson Ball - 04/26/2024 11:49 AM EST Symptom: Breathing Trouble Outcome: Talk to a nurse or provider within 15 minutes Reason: Trouble breathing through the mouth The caller accepted this outcome. Contact pt at [phone] documented in this encounter Plan of Treatment Upcoming Encounters Date Type Department Care Team (Late st Contact Info) Description 07/23/2024 1:00 PM EST Medication Management [address] [address] Guero Burns, PharmD [address] [place] [address] 10/04/2024 1:00 PM EDT Clinical Support [address] [address] Sandra Boyd, TONY documented as of this encounter Visit Diagnoses Not on filedocumented in this encounter Additional Health Concerns Assessment Noted Time PHQ-9 Depression Total Score: 4 01/06/20 24 2:22 PM EDT documented as of this encounter Care Teams Social Media Intern Relationship Specialty Start Date End Date Pretty Molina MD [address] [place] [address] PCP - General Family Medicine 12/24/20 documented as of this encounter
== END 2024-07-11 16:32 | disposition home or self-care (01) ==
LOC: HO.HWS 14:53
PROVIDERS: PCP Internal Medicine; Visit Provider Obstetrics & Gynecology
DX: D25.9 Leiomyoma of uterus, unspecified (principal); R93.89 Abnormal findings on diagnostic imaging of other specified body structures
CPT/HCPCS: 99213

== ENCOUNTER → 2024-07-11 14:53 | Outpatient (BNVA) | payer MEDICAID, SELFPAY | PROVIDERS: PCP Internal Medicine; Visit Provider Obstetrics & Gynecology | DX: D25.9 Leiomyoma of uterus, unspecified (principal); R93.89 Abnormal findings on diagnostic imaging of other specified body structures | CPT/HCPCS: 99212 ==

== ENCOUNTER 2024-07-18 11:15 | Outpatient (REF) | payer MEDICAID, SELFPAY ==
--- OUTSIDE RECORDS SUMMARY | 2024-07-18 13:39 | XMS_ITS | Encounter Summary ---
Author Organization [employer] Address 75 [facility] 7t [place] [address] Care Team Providers Care Information Systems Operator Name Role Phone Pretty Molina MD Primary Care Provide r Reason for Visit * Reason Comments Med Refill Encounter Details Date Type Department Care Team (Late st Contact Info) Description 06/11/2022 Refill [facility] MEDICINE 230 [place], [place] [phone] Yasmine Hernandez MD 230 [place] [address] Chronic pain syndrome Social History Tobacco Use [...] Cedillo RN - 06/15/2022 10:45 AM EST [employer] ck 06/15/22. documented in this encounter Plan of Treatment Upcoming Encounters Date Type Department Care Team (Late st Contact Info) Description 07/23/2024 1:00 PM EST Medication Management [facility] MEDICINE [address] [place] [address] Guero Burns, PharmD 230 [place] [address] 10/04/2024 1:00 PM EDT Clinical Support [facility] MEDICINE [address] [place] [address] Sandra Boyd RN documented as of this encounter Visit Diagnoses Diagnosis Chronic pain syndrome documented in this encounter Care Teams Information Systems Operator Relationship Specialty Start Date End Date Pretty Molina MD 230 [place] [address] PCP - General Family Medicine 12/24/20 documented as of this encounter
--- OUTSIDE RECORDS SUMMARY | 2024-07-18 13:39 | XMS_ITS | Encounter Summary ---
Author Organization [employer] Address 75 [facility] 7 [place] [address] Care Team Providers Care Food Beverage Manager Name Role Phone Pretty Molina MD Primary Care Provide r Reason for Visit * Reason Onset Date Comments Med Refill 06/10/2022 Encounter Details Date Type Department Care Team (Late st Contact Info) Description 06/10/2022 Refill [facility] MEDICINE 230 [place] [address] Pretty Molina MD 230 [place] [address] Social History Tobacco Use Types Packs/Day Years [...] Description 07/23/2024 1:00 PM EST Medication Management [facility] MEDICINE 230 [place], [place] [phone] Guero Burns, PharmD 230 [place] [address] 10/04/2024 1:00 PM EDT Clinical Support [facility] MEDICINE [address] [place] [phone] Sandra Boyd, RN documented as of this encounter Visit Diagnoses Not on filedocumented in this encounter Care Teams Food Beverage Manager Relationship Specialty Start Date End Date Pretty Molina MD [address] [place] [address] PCP - General Family Medicine 12/24/20 documented as of this encounter
--- OUTSIDE RECORDS SUMMARY | 2024-07-18 13:39 | XMS_ITS | Encounter Summary ---
Author Organization [employer] Address 75 [facility] 7t [place] [address] Care Team Providers Care Make Up Artist Name Role Phone Pretty Molina MD Primary Care Provide r Reason for Visit * Reason Onset Date Comments DME from O&P 06/07/2024 Encounter Details Date Type Department Care Team ([facility] st Contact Info) Description 06/07/2024 Telephone [facility] MEDICINE 230 [place] [address] Mauro Frye MA DME from O&P Social [...] Description 07/23/2024 1:00 PM EST Medication Management [facility] MEDICINE [address] [place] [address] Guero Burns, PharmD 230 [place] [address] 10/04/2024 1:00 PM EDT Clinical Support [facility] MEDICINE [address] [place] [address] Sandra Boyd RN documented as of this encounter Visit Diagnoses Not on filedocumented in this encounter Additional Health Concerns Assessment Noted Time PHQ-9 Depression Total Score: 4 01/06/20 24 2:22 PM EDT documented as of this encounter Care Teams Make Up Artist Relationship Specialty Start Date End Date Pretty Molina MD 230 [place] [address] PCP - General Family Medicine 12/24/20 documented as of this encounter
--- OUTSIDE RECORDS SUMMARY | 2024-07-18 13:39 | XMS_ITS | Encounter Summary ---
Author Organization [employer] Address 75 [facility] 7t [place] [address] Care Team Providers Care Computer Programming Supervisor Name Role Phone Pretty Molina MD Primary Care Provide r Reason for Visit * Reason Comments Med Refill Encounter Details Date Type Department Care Team (Late st Contact Info) Description 07/01/2024 Refill [facility] MEDICINE 230 [place] [address] Keysha Nagel, ERIC [address] [place] [address] Social History Tobacco Use Types Packs/Day Years [...] Description 07/23/2024 1:00 PM EST Medication Management [address] [address] Guero Burns, PharmD [address] [place] [address] 10/04/2024 1:00 PM EDT Clinical Support [address] [address] Sandra Boyd, RN documented as of this encounter Visit Diagnoses Not on filedocumented in this encounter Additional Health Concerns Assessment Noted Time PHQ-9 Depression Total Score: 4 01/06/20 24 2:22 PM EDT documented as of this encounter Care Teams Computer Programming Supervisor Relationship Specialty Start Date End Date Pretty Molina MD [address] [place] [address] PCP - General Family Medicine 12/24/20 documented as of this encounter
--- OUTSIDE RECORDS SUMMARY | 2024-07-18 13:39 | XMS_ITS | Encounter Summary ---
Author Organization [employer] Address 75 [facility] 7t [place] [address] Care Team Providers Care Classifier Name Role Phone Pretty Molina MD Primary Care Provide r Reason for Visit * Reason Onset Date Comments Med Refill 07/09/2024 Encounter Details Date Type Department Care Team (Late st Contact Info) Description 07/09/2024 Refill [facility] MEDICINE 230 [place] [address] Pretty Molina MD 230 [place] [address] Other chronic pain Social History Tobacco Use [...] 5-325 MG tablet To be sent to: [facility] - [place], [place] - [address] [place] [address] documented in this encounter Plan of Treatment Upcoming Encounters Date Type Department Care Team ([facility] st Contact Info) Description 07/23/2024 1:00 PM EST Medication Management [facility] MEDICINE [address] [place] [address] Guero Burns, PharmD [address] [place] [address] 10/04/2024 1:00 PM EDT Clinical Support [address] [address] Sandra Boyd, TONY documented as of this encounter Visit Diagnoses Diagnosis Other chronic pain documented in this encounter Additional Health Concerns Assessment Noted Time PHQ-9 Depression Total Score: 4 01/06/20 24 2:22 PM EDT documented as of this encounter Care Teams Classifier Relationship Specialty Start Date End Date Pretty Molina MD 230 [place] [address] PCP - General Family Medicine 12/24/20 documented as of this encounter
--- OUTSIDE RECORDS SUMMARY | 2024-07-18 13:39 | XMS_ITS | Encounter Summary ---
Author Organization [employer] Address 75 [facility] 7t [place] [address] Care Team Providers Care Physical Therapist Assistant Name Role Phone Pretty Molina MD Primary Care Provide r Reason for Visit * Reason Comments Med Refill Encounter Details Date Type Department Care Team (Late st Contact Info) Description 03/30/2023 Refill [facility] MEDICINE 230 [place], [place] [phone] Pretty Molina MD 230 [place] [address] Other chronic pain Social History Tobacco Use [...] Description 07/23/2024 1:00 PM EST Medication Management [facility] [address] [place] [address] Guero Burns, PharmD [address] [place] [address] 10/04/2024 1:00 PM EDT Clinical Support [address] [address] Sandra Boyd, RN documented as of this encounter Visit Diagnoses Diagnosis Other chronic pain documented in this encounter Additional Health Concerns Assessment Noted Time PHQ-9 Depression Total Score: 12 023 3:08 PM EDT documented as of this encounter Care Teams Physical Therapist Assistant Relationship Specialty Start Date End Date Pretty Molina MD [address] [place] [address] PCP - General Family Medicine 12/24/20 documented as of this encounter
--- OUTSIDE RECORDS SUMMARY | 2024-07-18 13:39 | XMS_ITS | Encounter Summary ---
Author Organization [employer] Address 75 [facility] 7t [place] [address] Care Team Providers Care Junior Copywriter Name Role Phone Pretty Molina MD Primary Care Provide r Reason for Visit * Reason Comments Med Refill Encounter Details Date Type Department Care Team (Late st Contact Info) Description 06/25/2024 Refill [facility] 505 [place] [address] Pretty Molina MD 230 [place] [address] Primary hypertension Social History Tobacco Use Types [...] Description 07/23/2024 1:00 PM EST Medication Management [address] [address] Guero Burns, PharmD [address] [place] [address] 10/04/2024 1:00 PM EDT Clinical Support [address] [address] Sandra Boyd, RN documented as of this encounter Visit Diagnoses Diagnosis Primary hypertension Unspecified essential hypertension documented in this encounter Additional Health Concerns Assessment Noted Time PHQ-9 Depression Total Score: 4 01/06/20 24 2:22 PM EDT documented as of this encounter Care Teams Junior Copywriter Relationship Specialty Start Date End Date Pretty Molina MD [address] [place] [address] PCP - General Family Medicine 12/24/20 documented as of this encounter
--- OUTSIDE RECORDS SUMMARY | 2024-07-18 13:39 | XMS_ITS | Encounter Summary ---
Author Organization [employer] Address 75 [facility] 7t [place] [address] Care Team Providers Care Slumber Room Attendant Name Role Phone Pretty Molina MD Primary Care Provide r Encounter Details Date Type Department Care Team (Late st Contact Info) Description 07/12/2022 Orders Only [facility] MED & PEDS 505 [place], [place] [phone] Jocelyn Fleming LPN Social History Tobacco Use [...] Description 07/23/2024 1:00 PM EST Medication Management [address] [address] Guero Burns, PharmD 230 [place] [address] 10/04/2024 1:00 PM EDT Clinical Support [address] [phone] Sandra Boyd, RN documented as of this encounter Visit Diagnoses Not on filedocumented in this encounter Care Teams Slumber Room Attendant Relationship Specialty Start Date End Date Pertty Molina MD [address] [place] [address] PCP - General Family Medicine 12/24/20 documented as of this encounter
--- OUTSIDE RECORDS SUMMARY | 2024-07-18 13:39 | XMS_ITS | Encounter Summary ---
Author Organization [employer] Address 75 [facility] 7t [place] [address] Care Team Providers Care Peanut Farmer Name Role Phone Pretty Molina MD Primary Care Provide r Encounter Details Date Type Department Care Team (Late st Contact Info) Description 07/01/2022 Orders Only [facility] 230 [place] [address] Marti Cedillo RN Chronically on opiate therapy [...] 07/23/2024 1:00 PM EST Medication Management [address] [address] Guero Burns, PoloD 230 [place] [address] 10/04/2024 1:00 PM EDT Clinical Support [address] [address] Sandra Boyd RN documented as of this encounter Visit Diagnoses Diagnosis Chronically on opiate therapy- Primary documented in this encounter Care Teams Peanut Farmer Relationship Specialty Start Date End Date Pretty Molina MD [address] [place] [address] PCP - General Family Medicine 12/24/20 documented as of this encounter
--- OUTSIDE RECORDS SUMMARY | 2024-07-18 13:39 | XMS_ITS | Encounter Summary ---
Author Organization [employer] Address 75 [facility] 7t [place] [address] Care Team Providers Care School Psychological Examiner Name Role Phone Pretty Molina MD Primary Care Provide r Reason for Visit * Reason Comments Med Refill Encounter Details Date Type Department Care Team (Late st Contact Info) Description 07/18/2024 Refill [facility] MEDICINE 230 [place] [address] Pretty Molina MD 230 [place] [address] Dry eye syndrome of bilateral lacrimal glands Social History Tobacco Use Types Packs/Day Years [...] Description 07/23/2024 1:00 PM EST Medication Management [address] [address] Guero Burns, PharmD [address] [place] [address] 10/04/2024 1:00 PM EDT Clinical Support [address] [address] Sandra Boyd, TONY documented as of this encounter Visit Diagnoses Diagnosis Dry eye syndrome of bilateral lacrimal glands documented in this encounter Additional Health Concerns Assessment Noted Time PHQ-9 Depression Total Score: 4 01/06/20 24 2:22 PM EDT documented as of this encounter Care Teams School Psychological Examiner Relationship Specialty Start Date End Date Pretty Molina MD [address] [place] [address] PCP - General Family Medicine 12/24/20 documented as of this encounter
--- OUTSIDE RECORDS SUMMARY | 2024-07-18 13:39 | XMS_ITS | Encounter Summary ---
Author Organization [employer] Address 75 [facility] 7t [place] [address] Care Team Providers Care Licensed Home Inspector Name Role Phone Pretty Molina MD Primary Care Provide r Encounter Details Date Type Department Care Team ([facility] Contact Info) Description 09/01/2022 Orders Only [facility] CHC MED & PEDS 505 [place], [place] [phone] Jocelyn Fleming LPN Social History Tobacco Use [...] Description 07/23/2024 1:00 PM EST Medication Management [facility] MEDICINE [address] [place] [address] Guero Burns, PoloD 230 [place] [address] 10/04/2024 1:00 PM EDT Clinical Support [facility] MEDICINE 230 [place] [address] Sandra Boyd, RN documented as of this encounter Visit Diagnoses Not on filedocumented in this encounter Care Teams Licensed Home Inspector Relationship Specialty Start Date End Date Pretty Molina MD 230 [place] [address] PCP - General Family Medicine 12/24/20 documented as of this encounter
--- OUTSIDE RECORDS SUMMARY | 2024-07-18 13:39 | XMS_ITS | Encounter Summary ---
Author Organization [employer] Address 75 [facility] 7t [place] [address] Care Team Providers Care Logistic Manager Name Role Phone Pretty Molina MD Primary Care Provide r Reason for Visit * Reason Comments Med Refill Encounter Details Date Type Department Care Team (Late st Contact Info) Description 07/05/2023 Refill [facility] CH[facility] MED & PEDS 505 [place], [place] [phone] Pretty Molina MD 230 [place] [address] Social History Tobacco Use Types Packs/Day Years [...] Description 07/23/2024 1:00 PM EST Medication Management [address] [address] Guero Burns, PharmD [address] [place] [address] 10/04/2024 1:00 PM EDT Clinical Support [address] [address] Sandra Boyd, TONY documented as of this encounter Visit Diagnoses Not on filedocumented in this encounter Additional Health Concerns Assessment Noted Time PHQ-9 Depression Total Score: 12 023 3:08 PM EDT documented as of this encounter Care Teams Logistic Manager Relationship Specialty Start Date End Date Pretty Molina MD [address] [place] [address] PCP - General Family Medicine 12/24/20 documented as of this encounter
--- OUTSIDE RECORDS SUMMARY | 2024-07-18 13:39 | XMS_ITS | Encounter Summary ---
Author Organization [employer] Address 75 [facility] 7t [place] [address] Care Team Providers Care Software Technical Lead Name Role Phone Pretty Molina MD Primary Care Provide r Reason for Visit * Reason Comments Med Refill Encounter Details Date Type Department Care Team (Late st Contact Info) Description 05/02/2023 Refill [facility] MEDICINE 230 [place] [address] Jocelyn Bender DO 230 [place] [address] Seasonal allergic rhinitis, unspecified trigger Social History [...] Description 07/23/2024 1:00 PM EST Medication Management [address] [address] Guero Burns, PharmD [address] [place] [address] 10/04/2024 1:00 PM EDT Clinical Support [address] [address] Sandra Boyd, TONY documented as of this encounter Visit Diagnoses Diagnosis Seasonal allergic rhinitis, unspecified trigger documented in this encounter Additional Health Concerns Assessment Noted Time PHQ-9 Depression Total Score: 12 023 3:08 PM EDT documented as of this encounter Care Teams Software Technical Lead Relationship Specialty Start Date End Date Pretty Molina MD [address] [place] [address] PCP - General Family Medicine 12/24/20 documented as of this encounter
--- OUTSIDE RECORDS SUMMARY | 2024-07-18 13:39 | XMS_ITS | Encounter Summary ---
Author Organization [employer] Address 75 [facility] 7t [place] [address] Care Team Providers Care Hand Outside Cutter Name Role Phone Pretty Molina MD Primary Care Provide r Reason for Visit * Reason Comments Med Refill Encounter Details Date Type Department Care Team (Late st Contact Info) Description 06/16/2024 Refill [facility] MEDICINE 230 [place], [place] [phone] Pretty Molina MD 230 [place], [place] [phone] Neuropathy Social History Tobacco Use Types Packs/Day [...] Description 07/23/2024 1:00 PM EST Medication Management [address] [address] Guero Burns, PharmD [address] [place] [address] 10/04/2024 1:00 PM EDT Clinical Support [address] [address] Sandra Boyd, OTNY documented as of this encounter Visit Diagnoses Diagnosis Neuropathy Mononeuritis of unspecified site documented in this encounter Additional Health Concerns Assessment Noted Time PHQ-9 Depression Total Score: 4 01/06/20 24 2:22 PM EDT documented as of this encounter Care Teams Hand Outside Cutter Relationship Specialty Start Date End Date Pretty Molina MD [address] [place] [address] PCP - General Family Medicine 12/24/20 documented as of this encounter
--- OUTSIDE RECORDS SUMMARY | 2024-07-18 13:39 | XMS_ITS | Encounter Summary ---
Author Organization [employer] Address 75 [facility] 7t [place] [address] Care Team Providers Care Manager Talent Name Role Phone Pretty Molina MD Primary Care Provide r Encounter Details Date Type Department Care Team (Latest Contact Info) Description [address] [facility] CONVERSIONS Dental, Provider, DDS Social History [...] Description 07/23/2024 1:00 PM EST Medication Management [facility] MEDICINE [address] [place] [address] Guero Burns, PoloD 230 [place] [address] 10/04/2024 1:00 PM EDT Clinical Support [facility] MEDICINE [address] [place] [address] Sandra Boyd, TONY documented as of this encounter Visit Diagnoses Not on filedocumented in this encounter Care Teams Manager Talent Relationship Specialty Start Date End Date Pretty Molina MD 230 [place] [address] PCP - General Family Medicine 12/24/20 documented as of this encounter
--- OUTSIDE RECORDS SUMMARY | 2024-07-18 13:39 | XMS_ITS | Encounter Summary ---
Author Organization [employer] Address 75 [facility] 7t [place] [address] Care Team Providers Care Bar Finish Operator Name Role Phone Pretty Molina MD Primary Care Provide r Reason for Visit * Reason Comments Med Refill Encounter Details Date Type Department Care Team (Late st Contact Info) Description 06/20/2024 Refill [facility] MEDICINE 230 [place] [address] Noemi Schwartz MD 230 [place] [address] Seasonal allergies Social History Tobacco Use Types [...] Description 07/23/2024 1:00 PM EST Medication Management [address] [address] Guero Burns, PharmD [address] [place] [address] 10/04/2024 1:00 PM EDT Clinical Support [address] [address] Sandra Boyd, TONY documented as of this encounter Visit Diagnoses Diagnosis Seasonal allergies Allergic rhinitis, cause unspecified documented in this encounter Additional Health Concerns Assessment Noted Time PHQ-9 Depression Total Score: 4 01/06/20 24 2:22 PM EDT documented as of this encounter Care Teams Bar Finish Operator Relationship Specialty Start Date End Date Pretty Molina MD [address] [place] [address] PCP - General Family Medicine 12/24/20 documented as of this encounter
--- OUTSIDE RECORDS SUMMARY | 2024-07-18 13:39 | XMS_ITS | Encounter Summary ---
Author Organization [employer] Address 75 [facility] 7t [place] [address] Care Team Providers Care Salesforce Specialist Name Role Phone Pretty Molina MD Primary Care Provide r Reason for Visit * Reason Comments Med Refill Encounter Details Date Type Department Care Team ([facility] st Contact Info) Description 05/12/2023 Refill [facility] CHC MED & PEDS 505 [place], [place] [phone] Pretty Molina MD 230 [place] [address] Neuropathy Social History Tobacco Use Types Packs/Day [...] Description 07/23/2024 1:00 PM EST Medication Management [address] [address] Guero Burns, PharmD [address] [place] [address] 10/04/2024 1:00 PM EDT Clinical Support [address] [address] Sandra Boyd, TONY documented as of this encounter Visit Diagnoses Diagnosis Neuropathy Mononeuritis of unspecified site documented in this encounter Additional Health Concerns Assessment Noted Time PHQ-9 Depression Total Score: 12 023 3:08 PM EDT documented as of this encounter Care Teams Salesforce Specialist Relationship Specialty Start Date End Date Pretty Molina MD [address] [place] [address] PCP - General Family Medicine 12/24/20 documented as of this encounter
--- OUTSIDE RECORDS SUMMARY | 2024-07-18 13:39 | XMS_ITS | Encounter Summary ---
Author Organization [employer] Address 75 [facility] 7t [place] [address] Care Team Providers Care Airborne Mission Systems Superintendent Name Role Phone Pretty Molina MD Primary Care Provide r Reason for Visit * Reason Comments Med Refill Encounter Details Date Type Department Care Team (Late st Contact Info) Description 05/10/2023 Refill [facility] MEDICINE 230 [place], [place] [phone] Pretty Molina MD 230 [place], [place] [phone] Other chronic pain Social History Tobacco Use [...] Description 07/23/2024 1:00 PM EST Medication Management [facility] MEDICINE [address] [place] [address] Guero Burns, PharmD [address] [place] [address] 10/04/2024 1:00 PM EDT Clinical Support [address] [address] Sandra Boyd, RN documented as of this encounter Visit Diagnoses Diagnosis Other chronic pain documented in this encounter Additional Health Concerns Assessment Noted Time PHQ-9 Depression Total Score: 12 023 3:08 PM EDT documented as of this encounter Care Teams Airborne Mission Systems Superintendent Relationship Specialty Start Date End Date Pretty Molina MD [address] [place] [address] PCP - General Family Medicine 12/24/20 documented as of this encounter
--- OUTSIDE RECORDS SUMMARY | 2024-07-18 13:39 | XMS_ITS | Encounter Summary ---
Author Organization [employer] Address 75 [facility] 7t [place] [address] Care Team Providers Care Lead Java Programmer Name Role Phone Pretty Molina MD Primary Care Provide r Reason for Visit * Reason Comments Med Refill Encounter Details Date Type Department Care Team (Late st Contact Info) Description 06/06/2024 Refill [facility] CHC MED & PEDS 505 [place] [address] Pretty Molina MD 230 [place] [address] Type 2 diabetes mellitus with hyperglycemia, without long-term current use of insulin ([facility]) Social History Tobacco Use Types Packs/Day Years [...] Description 07/23/2024 1:00 PM EST Medication Management [address] [address] Guero Burns, PharmD [address] [place] [address] 10/04/2024 1:00 PM EDT Clinical Support [address] [address] Sandra Boyd RN documented as of this encounter Visit Diagnoses Diagnosis Type 2 diabetes mellitus with hyperglycemia, without long-term current use of insulin ([facility]) documented in this encounter Additional Health Concerns Assessment Noted Time PHQ-9 Depression Total Score: 4 01/06/20 24 2:22 PM EDT documented as of this encounter Care Teams Lead Java Programmer Relationship Specialty Start Date End Date Pretty Molina MD [address] [place] [address] PCP - General Family Medicine 12/24/20 documented as of this encounter
--- OUTSIDE RECORDS SUMMARY | 2024-07-18 13:39 | XMS_ITS | Encounter Summary ---
Author Organization [employer] Address 75 [facility] 7t [place] [address] Care Team Providers Care Control Electrician Name Role Phone Pretty Molina MD Primary Care Provide r Encounter Details Date Type Department Care Team (Latest Contact Info) Description 04/21/2020 Abstract [facility] CONVERSIONS Dental, Provider, DDS Social History [...] Description 07/23/2024 1:00 PM EST Medication Management [facility] MEDICINE [address] [place] [address] Guero Burns, PoloD 230 [place] [address] 10/04/2024 1:00 PM EDT Clinical Support [facility] MEDICINE [address] [place] [address] Sandra Boyd, RN documented as of this encounter Visit Diagnoses Not on filedocumented in this encounter Care Teams Control Electrician Relationship Specialty Start Date End Date Pretty Molina MD 230 [place] [address] PCP - General Family Medicine 12/24/20 documented as of this encounter
--- OUTSIDE RECORDS SUMMARY | 2024-07-18 13:39 | XMS_ITS | Encounter Summary ---
Author Organization [employer] Address 75 [facility] 7t [place] [address] Care Team Providers Care Darklight Inspector Name Role Phone Pretty Molina MD Primary Care Provide r Encounter Details Date Type Department Care Team (Latest Contact Info) Description 05/31/2019 Abstract [facility] CONVERSIONS Dental, Provider, DDS Social History Tobacco [...] Description 07/23/2024 1:00 PM EST Medication Management [facility] MEDICINE [address] [place] [address] Guero Burns, PoloD 230 [place] [address] 10/04/2024 1:00 PM EDT Clinical Support [facility] MEDICINE [address] [place] [address] Sandra Boyd, TONY documented as of this encounter Visit Diagnoses Not on filedocumented in this encounter Care Teams Darklight Inspector Relationship Specialty Start Date End Date Pretty Molina MD 230 [place] [address] PCP - General Family Medicine 12/24/20 documented as of this encounter
--- OUTSIDE RECORDS SUMMARY | 2024-07-18 13:39 | XMS_ITS | Encounter Summary ---
Author Organization [employer] Address 75 [facility] 7t [place] [address] Care Team Providers Care Burn Table Operator Name Role Phone Pretty Molina MD Primary Care Provide r Reason for Visit * Reason Comments Med Refill Encounter Details Date Type Department Care Team (Late st Contact Info) Description 05/09/2023 Refill [facility] MEDICINE 230 [place], [place] [phone] Pretty Molina MD 230 [place], [place] [phone] Other chronic pain Social History Tobacco Use [...] Description 07/23/2024 1:00 PM EST Medication Management [facility] MEDICINE [address] [place] [address] Guero Burns, PharmD [address] [place] [address] 10/04/2024 1:00 PM EDT Clinical Support [address] [address] Sandra Boyd, RN documented as of this encounter Visit Diagnoses Diagnosis Other chronic pain documented in this encounter Additional Health Concerns Assessment Noted Time PHQ-9 Depression Total Score: 12 023 3:08 PM EDT documented as of this encounter Care Teams Burn Table Operator Relationship Specialty Start Date End Date Pretty Molina MD [address] [place] [address] PCP - General Family Medicine 12/24/20 documented as of this encounter
--- OUTSIDE RECORDS SUMMARY | 2024-07-18 13:39 | XMS_ITS | Encounter Summary ---
Author Organization [employer] Address 75 [facility] 7t [place] [address] Care Team Providers Care Windows 7 Deployment Lead Name Role Phone Pretty Molina MD Primary Care Provide r Reason for Visit * Reason Onset Date Comments Appointment Request 06/10/2022 Encounter Details Date Type Department Care Team ([facility] st Contact Info) Description 06/10/2022 Telephone [facility] MEDICINE 230 [place] [address] Pretty Molina MD 230 [place] [address] Appointment Request Social History Tobacco Use Types [...] will leave a message. Please contact at [phone] Speaks Upper Sor[place]. documented in this encounter Plan of Treatment Upcoming Encounters Date Type Department Care Team (Late st Contact Info) Description 07/23/2024 1:00 PM EST Medication Management [facility] MEDICINE [address] [place] [address] Guero Burns, PharmD [address] [place] [address] 10/04/2024 1:00 PM EDT Clinical Support [address] [address] Sandra Boyd RN documented as of this encounter Visit Diagnoses Not on filedocumented in this encounter Care Teams Windows 7 Deployment Lead Relationship Specialty Start Date End Date Pretty Molina MD 230 [place] [address] PCP - General Family Medicine 12/24/20 documented as of this encounter
--- OUTSIDE RECORDS SUMMARY | 2024-07-18 13:40 | XMS_ITS | Encounter Summary ---
Author Organization [employer] Address 75 [facility] 7t [place] [address] Care Team Providers Care Housekeeping/Laundry Supervisor Name Role Phone Pretty Molina MD Primary Care Provide r Encounter Details Date Type Department Care Team (Late st Contact Info) Description 11/12/2022 Orders Only [facility] CHC MED & PEDS 505 [place] [address] Jocelyn Fleming LPN Social History Tobacco Use [...] Description 07/23/2024 1:00 PM EST Medication Management [facility] MEDICINE [address] [place] [address] Guero Burns, PharmD 230 [place], [place] [phone] 10/04/2024 1:00 PM EDT Clinical Support [facility] MEDICINE 230 [place], [place] [phone] Sandra Boyd RN documented as of this encounter Visit Diagnoses Not on filedocumented in this encounter Care Teams Housekeeping/Laundry Supervisor Relationship Specialty Start Date End Date Pretty Molina MD 230 [place] [address] PCP - General Family Medicine 12/24/20 documented as of this encounter
--- OUTSIDE RECORDS SUMMARY | 2024-07-18 13:40 | XMS_ITS | Clinical Summary ---
Author Organization [address] [facility] Address [address] [place] [address] Phone Care Team Providers Care Mac Operator Name Role Phone Pretty Molina MD [...] by mouth 2 times daily. Active ceramide 1,3,4-NN-sbrm-hyalur (CeraVe PM) lotion,extended release Apply topically. Active [...] Team Description 05/25/2024 Telephone Orthopedic Surgery - [place] [address] [facility] [address] [place] [address] Maria Isabel More MA from Last 3 Months Surgical History Surgery Date Site/Laterality Comments TUBAL LIGATION PROCEDURE: HISTORICAL TUBAL LIGATION OTHER SURGICAL HISTORY PROCEDURE: LA GRAFT COMPOSITE W/PRIMARY CLOSURE DONOR AREA Medical [...] BMP Blood Test (01/10/2024) Pathologist [facility] Annual BMP Blood Test abstracted Historical Provider MD MARY ACOSTA E * Lipid panel (01/10/2024) [facility] Triglycerides 0 mg/dL Comment:no interpretation Cholesterol 0 mg/dL Comment:no interpretation HDL 0 mg/dL Comment:no interpretation LDL Cholesterol 0 mg/dL Comment:no interpretation Blood Venous blood specimen / Unknown Historical Provider LAB BLOOD ORDERAB LES * Cervical Cancer Screening: HPV (04/18/2023) [facility] Cervical Cancer Screening: HPV No interpreta tion,abstr acted Historical Provider MD MARY ACOSTA E * Hemoglobin A1c (07/20/2021) [facility] Hemoglobin A1C 0.0 % Comment:no interpretation Blood Venous blood specimen / Unknown Historical Provider LAB BLOOD ORDERAB LES from Last 3 Months or Most Recently Relevant to Health Maintenance Care Teams Mac Operator Relationship Specialty Start Date End Date Pretty Molina MD [address] [address] [facility] - General 06/01/23
--- OUTSIDE RECORDS SUMMARY | 2024-07-18 13:40 | XMS_ITS | Encounter Summary ---
Author Organization [employer] Address [address] [facility] 7t [place] [address] Care Team Providers Care Receptionist Scheduler Name Role Phone Pretty Molina MD Primary Care Provide r Reason for Visit * Reason Comments Med Refill Encounter Details Date Type Department Care Team (Late st Contact Info) Description 11/24/2022 Refill [facility] ADULT DENTAL [address] [place] [address] Eliezer Richardson DDS [address] [place] [address] Social History Tobacco Use Types Packs/Day Years [...] Description 07/23/2024 1:00 PM EST Medication Management [address] [address] Guero Burns, PoloD 230 [place] [address] 10/04/2024 1:00 PM EDT Clinical Support [address] [address] Sandra Boyd RN documented as of this encounter Visit Diagnoses Not on filedocumented in this encounter Additional Health Concerns Assessment Noted Time PHQ-9 Depression Total Score: 12 023 3:08 PM EDT documented as of this encounter Care Teams Receptionist Scheduler Relationship Specialty Start Date End Date Pretty Molina MD [address] [place] [phone] PCP - General Family Medicine 12/24/20 documented as of this encounter
--- OUTSIDE RECORDS SUMMARY | 2024-07-18 13:40 | XMS_ITS | Encounter Summary ---
Author Organization [email or web address] Address [address] [facility] 7t [place] [address] Care Team Providers Care Wire Puller Name Role Phone Pretty Molina MD Primary Care Provide r Reason for Visit * Reason Comments Med Refill Encounter Details Date Type Department Care Team (Late Contact Info) Description 12/27/2022 Refill [facility] MEDICINE 230 [place] [address] Jocelyn Bender DO 230 [place] [address] Seasonal allergic rhinitis, unspecified trigger Social History [...] 07/23/2024 1:00 PM EST Medication Management [address] [address] Guero Burns, PoloD [address] [place] [address] 10/04/2024 1:00 PM EDT Clinical Support [address] [address] Sandra Boyd RN documented as of this encounter Visit Diagnoses Diagnosis Seasonal allergic rhinitis, unspecified trigger documented in this encounter Additional Health Concerns Assessment Noted Time PHQ-9 Depression Total Score: 12 11/24/ 023 3:08 PM EDT documented as of this encounter Care Teams Wire Puller Relationship Specialty Start Date End Date Pretty Molina MD [address] [place] [phone] PCP - General Family Medicine 12/24/20 documented as of this encounter
--- OUTSIDE RECORDS SUMMARY | 2024-07-18 13:40 | XMS_ITS | Encounter Summary ---
Author Organization [employer] Address [address] [facility] 7t [place] [address] Care Team Providers Care Punch Press Setter Name Role Phone Pretty Molina MD Primary Care Provide r Reason for Visit * Reason Comments Med Refill Encounter Details Date Type Department Care Team (Late st Contact Info) Description 04/21/2024 Refill [facility] MEDICINE 230 [place], [place] [phone] Pretty Molina MD 230 [place] [address] Neuropathy Social History Tobacco Use Types Packs/Day [...] Description 07/23/2024 1:00 PM EST Medication Management [address] [address] Guero Burns, PharmD [address] [place] [address] 10/04/2024 1:00 PM EDT Clinical Support [address] [address] Sandra Boyd, RN documented as of this encounter Visit Diagnoses Diagnosis Neuropathy Mononeuritis of unspecified site documented in this encounter Additional Health Concerns Assessment Noted Time PHQ-9 Depression Total Score: 4 01/06/20 24 2:22 PM EDT documented as of this encounter Care Teams Punch Press Setter Relationship Specialty Start Date End Date Pretty Molina MD [address] [place] [id number] PCP - General Family Medicine 12/24/20 documented as of this encounter
--- OUTSIDE RECORDS SUMMARY | 2024-07-18 13:40 | XMS_ITS | Encounter Summary ---
Author Organization [employer] Address [address] [facility] 7t [place] [address] Care Team Providers Care Dean Of Chapel Name Role Phone Pretty Molina MD Primary Care Provide r Reason for Visit * Reason Onset Date Comments Nurse Triage 04/26/2024 Encounter Details Date Type Department Care Team ([facility] st Contact Info) Description 04/26/2024 Telephone [facility] MEDICINE 230 [place] [address] Pretty Molina MD 230 [place] [address] Nurse Triage Social History Tobacco Use Types [...] 12:18 PM EST Please obtain note from [facility] ED visit 04/24/24, Upcoming appt with PCP tomorrow at 11am. * Telephone Encounter - Valeria Hooper LPN - 04/26/2024 11:58 AM EST Triage call returned with BLS #[id number] Yonathan. Patient reports that she was seen on 04/19/24. Patient is reporting following her Flu shot she has been feeling delicate . Chart shows Flu given in March. Call dropped. [facility] call with [facility] [place] [phone]. Patient reports seen at [facility] and not improved with cough and congestion. Has no reported fever. Patient then reports presented to [facility] ED on 04/24/24 and was given scan [...] caller accepted this outcome. Contact pt at [phone] documented in this encounter Plan of Treatment Upcoming Encounters Date Type Department Care Team (Late st Contact Info) Description 07/23/2024 1:00 PM EST Medication Management [address] [address] Guero Burns, PharmD [address] [place] [address] 10/04/2024 1:00 PM EDT Clinical Support [address] [address] Sandra Boyd, TONY documented as of this encounter Visit Diagnoses Not on filedocumented in this encounter Additional Health Concerns Assessment Noted Time PHQ-9 Depression Total Score: 4 01/06/20 24 2:22 PM EDT documented as of this encounter Care Teams Dean Of [employer] Relationship Specialty Start Date End Date Pretty Molina MD [address] [place] [phone] PCP - General Family Medicine 12/24/20 documented as of this encounter
--- OUTSIDE RECORDS SUMMARY | 2024-07-18 13:40 | XMS_ITS | Encounter Summary ---
Author Organization [employer] Address [address] [facility] 7t [place] [address] Care Team Providers Care Mold Yard Crane Operator Name Role Phone Pretty Molina MD Primary Care Provide r Reason for Visit * Reason Comments Med Refill Encounter Details Date Type Department Care Team (Late st Contact Info) Description 02/28/2023 Refill [facility] MEDICINE 230 [place], [place] [phone] rPetty Molina MD 230 [place], [place] [phone] Social History Tobacco Use Types Packs/Day Years [...] Medication Management [facility] MEDICINE [address] [place] [address] Guero Burns, PharmD 230 [place], [place] [phone] 10/04/2024 1:00 PM EDT Clinical Support [facility] MEDICINE [address] [place] [address] Sandra Boyd RN documented as of this encounter Visit Diagnoses Not on filedocumented in this encounter Additional Health Concerns Assessment Noted Time PHQ-9 Depression Total Score: 12 11/24/ 023 3:08 PM EDT documented as of this encounter Care Teams Mold Yard Crane Operator Relationship Specialty Start Date End Date Pretty Molina MD 230 [place] [address] PCP - General Family Medicine 12/24/20 documented as of this encounter
--- OUTSIDE RECORDS SUMMARY | 2024-07-18 13:40 | XMS_ITS | Clinical Summary ---
Author Organization [employer] Address [address] [place] [address] 7t [place] [address] Care Team Providers Care Program Aide Group Work Name Role Phone Pretty Molina MD Primary [...] hyperglycemia, without long-term current use of insulin (CMS/[facility]) 1 kit 2 times daily. [...] tabletIndication s:Diabetes mellitus type 2 in nonobese ([facility]) TAKE 1 TABLET BY MOUTH [...] mellitus with other specified complication, unspecified whether mcc insulin use ([facility]) TAKE 1 TABLET BY MOUTH EVERY MORNING 90 tablet 1 024 Active omeprazole (PriLOSEC) [address] capsule TAKE 1 CAPSULE BY MOUTH EVERY MORNING 90 capsule 1 024 Active Dulaglutide 1.5 MG/0.5ML solution auto-injectorInd ications:Type 2 diabetes mellitus with hyperglycemia, without long-term current use of insulin ([facility]) Inject 0.5 mL (1.5 mg) [...] 28 days. 56 tablet 025 2024 Active hydroCHLOROthiaz malorie 12.5 MG tabletIndication s:Primary hypertension TAKE 1 TABLET BY MOUTH EVERY MORNING (CALL IF BLOOD PRESSURE CONTINUAMENTE >140/90) 90 tablet 1 024 2024 Discontinued cetirizine (ZyrTEC) 10 MG tabletIndication s:Seasonal allergies TAKE 1 TABLET BY MOUTH EVERY MORNING 90 tablet 024 2024 Discontinued oxyCODONE-acetam inophen (Percocet) 5-325 [...] for up to 10 days. 473 mL 024 2024 Active Problems Problem Noted Date Diagnosed [...] Encounters Date Type Department Care Team Description 07/18/2024 Refill [facility] [address] [place] [address] Pretty Molina MD Dry eye syndrome of bilateral lacrimal glands 07/09/2024 Refill [facility] [address] [place] [address] Pretty Molina MD Other chronic pain 07/01/2024 Refill [facility] [address] [place] [address] Cristian Briones CN 06/25/2024 Refill [facility] [address] [place] [address] Pretty Molina MD Primary hypertension 06/20/2024 Refill [facility] [address] [place] [address] Noemi Schwartz MD Seasonal allergies 06/16/2024 Refill [facility] [address] [place] [address] Pretty Molina MD Neuropathy 06/11/2024 2:00 PM EST Office Visit [facility] [address] [place] [address] Pretty Molina MD Chronic cough (Primary Dx); Type 2 diabetes mellitus with hyperglycemia, without long-term current use of insulin ([facility]/HCC); Encounter for screening mammogram for malignant neoplasm of breast; Tobacco dependence; Encounter for preventive care 06/11/2024 Travel 06/08/[address] [address] Vicki Ghosh MA Chart Prep 06/07/[address] [address] Mauro Frye MA DME from [facility] 06/06/2024 Refill [facility] [address], [place] [phone] Pretty Molina MD Type 2 diabetes mellitus with hyperglycemia, without long-term current use of insulin ([facility]/HCC) 06/05/2024 10:30 AM EST Clinical Support [address] [address] Sandra Boyd, TONY Other chronic pain (Primary Dx) 06/05/[address] [address] Sandra Boyd, RN Other chronic pain 06/05/[address] [address] Pretty Molina MD Type 2 diabetes mellitus with hyperglycemia, without long-term current use of insulin ([facility]/HCC) 06/05/2024 Travel 06/05/[address] [address] Sandra Boyd, RN Recommend PHYSICIAN ASSISTANT PRIMARY CARE Tier 3 05/30/2024 Patient Outreach [address] [address] Pretty Molina MD Pre-visit Planning ([facility] screening completed on 12/28/2023) 05/25/[address] [address] Mauro Frye MA DME from [facility] 05/22/2024 Refill [facility] [address] [place] [address] Pretty Molina MD 05/20/2024 Refill [facility] [address] [place] [address] Pretty Molina MD Type 2 diabetes mellitus with other specified complication, unspecified whether mcc insulin use ([facility]) 05/16/2024 Refill [facility] [address] [place] [address] Pretty Molina MD 05/08/2024 Telephone [facility] [address] [place] [address] Pretty Molina MD Med Refill 05/07/2024 Refill [facility] [address] [place] [address] Pretty Molina MD Other chronic pain 05/04/2024 Telephone [facility] [address] [place] [address] Pretty Molina MD Appointment Request 04/30/2024 Refill [facility] [address] [place] [address] Pretty Molina MD Neuropathy 04/27/2024 11:00 AM EST Office Visit [facility] [address] [place] [address] Pretty Molina MD Moderate persistent asthma with exacerbation (Primary Dx); Type 2 diabetes mellitus with hyperglycemia, without long-term current use of insulin ([facility]); RSV (respiratory syncytial virus pneumonia) 04/27/2024 Travel 04/26/2024 Telephone [facility] [address] [place] [address] Pretty Molina MD Nurse Triage 04/26/2024 Refill [facility] [address] [place] [address] Pretty Molina MD Vitamin D deficiency 04/24/2024 Orders Only [facility] External Provider, [facility] 04/21/2024 Refill [facility] [address] [place] [address] Pretty Molina MD Neuropathy 04/19/2024 3:20 PM EST Office Visit [facility] [address] [place] [address] Appram, Lorena, CAMPER ASSEMBLER Wheezing on auscultation (Primary Dx); Cough in adult patient from Last 3 Months Immunizations Name Administration [...] Description 07/23/2024 1:00 PM EST Medication Management [facility] [address] [place] [address] Guero Burns, PharmD [address] [place] [address] 10/04/2024 1:00 PM EDT Clinical Support [facility] [address] [place] [address] Sandra Boyd, RN Health Maintenance Due Date [...] of 2 - Risk 2-dose series) 1980 Pneumococcal Vaccine: 50+ Years (1 of 2 - PCV) 1980 COVID-19 Vaccine ( season) 2024 10/30/2020, 10/02/2020 Mammogram 03/16/2024 03/16/2023, 02/12, 08/04/2020, Additional history exists Diabetes: Hemoglobin A1C 10/04/2024 024, 01/06/2024, 05/30/2023, Additional history exists SDOH Screening 12/27/2024 12/28/2023 Depression Screening 01/05/2025 01/06/2024, 01/06/20 24 Lipid Panel 01/09/2025 01/10/2024, 05/0 06/2022, 07/20/2021, [...] hyperglycemia, without long-term current use of insulin ([facility]) POCT HECTOR-14 URINE DRUG SCREEN Routine 06/05/2024 10:01 AM EST Other chronic pain POCT GLUCOSE Routine 04/27/2024 11:24 AM EST Type 2 diabetes mellitus with hyperglycemia, without long-term current use of insulin ([facility]) CT CHEST WO CONTRAST Routine 04/24/2024 9:30 PM EST POCT INFLUENZA B (ID NOW RAPID MOLECULAR) Routine 04/19/2024 2:56 PM EST Cough in adult patient POCT INFLUENZA A (ID NOW RAPID MOLECULAR) Routine 04/19/2024 2:56 PM EST Cough in adult patient POCT RAPID COVID ANTIGEN Routine 04/19/2024 2:56 PM EST Cough in adult patient POCT GLYCATED HEMOGLOBIN, TOTAL Routine 04/05/2024 3:05 PM EDT Type 2 diabetes mellitus with hyperglycemia, without long-term current use of insulin ([facility]) LIPID PANEL WITH REFLEX TO DIRECT LDL [...] of2 resultswithin the time period is included. Glucose Blood, POC 103 60 - 200 mg/dL QC Media Lot # [id number] Lot# Expiration Date Blood Capillary blood specimen / Unknown 06/11/2024 1:58 PM EST us Pretty Zayas MD POINT OF CARE TEST EN TER/EDIT ORDERABLES Final Result * POCT HECTOR-14 Urine Drug Screen (06/05/2024 10:01 AM EST) Oxycodone Screen, Urine Positive Urine Urine specimen obtained by clean catch procedure / Unknown 06/05/2024 10:01 AM EST Narrative Sandra Boyd RN - 06/05/2024 10:01 AM EST UTOX cup Lot#[id number] Exp. 03/07/26 Internal Pass Control Pretty Zayas MD POINT OF CARE TEST EN TER/EDIT ORDERABLES Final Result * CT Chest w/o Contrast (04/24/2024 9:30 PM EST) Anatomical Region Laterality Modality Body, Chest Computed Tomogra phy 04/24/2024 9:30 PM EST Narrative 04/24/2024 11:17 PM EST ? [facility] ?[address] ?[place] [address] ? CT Scan Report ? Signed ? Patient: Pascal,Amberda ?MR#: [id number] ?? [id number] ? : 1960 ?Acct:[id number] ? Age/Sex: 64 / F ?ADM Date: 04/24/24 ? Loc: HO.ED ? Attending Dr: ? Ordering Physician: Ashlie Rust CNP ?? Date of Service: 04/24/24 ?? Procedure(s): CT chest wo IV con ?? Accession Number(s): [id number] ? cc: Pretty Molina MD; Ashlie Rust [...] signed by Lavelle Kendall MD in OV> ?04/24/24 2313 ? DD/ 29 ? TD/TT: 04/24/242144 ? Arcade Games Mechanic: BA ? Procedure Note Gila Parr - 04/24/[address] [place] [address] [address] Scan Report Signed Patient: Abraham Pascal#: [id number] : 1960cct:[id number] Age/Sex: 64 / FADM Date: 04/24/24 Loc: HO.ED Attending Dr: Ordering Physician: Ashlie Rust CNP Date of Service: 04/24/24 Procedure(s): CT chest wo IV con Accession Number(s): [id number] cc: Pretty Molina MD; Ashlie Rust INTEGRATION SOFTWARE DEVELOPER EXAMINATION: CT CHEST WITHOUT CONTRAST CLINICAL INFORMATION: [...] signed by Lavelle Kendall MD in OV> 04/24/24 2313 DD/ 29 TD/TT: 04/24/242144 Arcade Games Mechanic: BREANNA [facility] External Provider IMG CT PROCEDURES Edited Result - Final * Influenza B (ID NOW Rapid Molecular) (04/19/2024 2:56 PM EST) Influenza B Negative Negative, Indeterminate [facility] Swab 04/19/2024 2:56 PM EST Lorena Wilson NP POINT OF CARE TEST ENTER/EDIT O RDERABLES Final Result [facility] [address] [place] [phone] * Influenza A (ID NOW Rapid Molecular) (04/19/2024 2:56 PM EST) [facility] Influenza A Negative Negative, Indeterminate [facility] Swab 04/19/2024 2:56 PM EST Lorena Wilson NP POINT OF CARE TEST ENTER/EDIT O RDERABLES Final Result [facility] [address] [place] [phone] [phone] * POCT Rapid COVID Ag (04/19/2024 2:56 PM EST) [facility] Rapid COVID Ag Negative Swab 04/19/2024 2:56 PM EST Lorena Wilson CAMPER ASSEMBLER POINT OF CARE TEST ENTER/EDIT O RDERABLES Final Result * (ABNORMAL) POCT HGB A1C (04/05/2024 3:05 PM EDT) [facility] Hemoglobin A1C 6.9(A) 4.0 - 6.0 % QC Media Lot # [id number] Lot# Expiration Date 848 Blood 04/05/2024 3:05 PM EDT Pretty Zayas MD POINT OF CARE TEST EN TER/EDIT ORDERABLES Final Result * Lipid Panel with Reflex to Direct LDL (01/10/2024 8:26 AM EDT) [facility] Triglycerides 140 <150 mg/dL [facility] Comment:Desirable Triglyceri de: less than 150 mg/dLBorderline High Triglyceride 150-199 mg/dLHigh Triglyceride: 200-499 mg/dLVery High Triglyceride: greater than or equal to 5OO mg/dL Cholesterol 155 <200 mg/dL [facility] Comment:Desirable Cholestero l: less than 200 mg/dLBorderline High Cholesterol: 200-239 mg/dLHigh Cholesterol: greater than 239 mg/dL LDL Cholesterol Calculated 80 <100 mg/dL [facility] Comment:Desirable LDL: less than 100 mg/dLNear Optimal/Above Optimal LDL: 110- 129 mg/dLBorderline High LDL: 130-159 mg/dLHigh LDL: 160-189 mg/dLVery High LDL: greater than or equal to 190 mg/dL HDL Cholesterol 47 >40 mg/dL [facility] Comment:Desirable HDL: great er than 40 mg/dL Note: This HDL assay may give artificially low results in patients with liver disease. Blood 01/10/2024 8:26 AM EDT 01/10/2024 11:20 AM EDT Pretty Zayas MD LAB BLOOD ORDERABLES Final Result [facility] [address] [place] [phone] * HPV mRNA E6/E7 w/Reflex to HPV Genotypes 16, 18/45 (04/18/2023 2:08 PM EST) HPV nRNA E6/E7 Not Detected Not Detected [facility] Comment:Methodology: Transcr iption-Mediated AmplificationThis assay detects E6/E7 viral messenger RNA (mRNA) from 14high-risk HPV types (16,18,31,33,35,39,45,51,52,56,58,59,66,68).Cervical sources are required for HPV testing.If a vaginal source from a patient who has had atotal hysterectomy with removal of cervix wassubmitted, please contact the testing laboratoryfor alternative testing options.For additional information, please refer tohttp://education.LINYWORKS/faq/EOI492j4(This link if provided for information/educational purposes only.)THIS TEST WAS PERFORMED AT:[facility] [place] [phone] ANNE MD HPV mRNA E6/E7 TNP [facility] HPV 16 RNA TNP [facility] HPV 18/45 RNA TNP [facility] 04/18/2023 2:08 PM EST 04/19/2023 8:20 AM EST Cristian Briones CNM LAB CYTOLOGY ORDERABLES F inal Result [facility] [address] [place] [phone] * Pap Smear (04/18/2023 2:08 PM EST) 04/18/2023 2:08 PM EST 04/19/2023 8:20 AM EST Narrative [facility] - 04/26/2023 1:40 PM EST ----- ------- Name: Violet Pascal ? Age/Sex: 63/F ? : 1960 Unit#: [id number] ?? Attend Dr: CRISTIAN BRIONES CNM ?Re04/18/23 ?Status: DEP REF ? Location: HO.HHCLNP ? Disch: ? ----- ------- SPEC : [id number] ?RECD: 04/19/23 ? STATUS: ??SOUT ? REQ NUM: [id number] ? YASMINE: 04/18/23 ? SUBM DR: CRISTIAN BRIONES CNM ? ENTERED: ??04/19/23 ?SP TYPE: Pap Smr ?OTHR : ? ORDERED: ??Pap Smear ? Interpretation ?? [...] 66, 68) ?? HPV testing performed by [facility], [place], [place]. ??See reference laboratory ?? pion of the EMR for entire report. ?Clinical Information LMP: Postmenopausal Previous PAP test: Unknown date/findings ? Material Received ?? ThinPrep-Cervical ----- ------- Signed (signature on file) MARIOLA Walker (ASCP) 04/26/23 1340 ? ----- ------- ? END OF REPORT ? us Cristian Briones [facility] CYTOLOGY ORDERABLES F inal Result [facility] [address] [place] [phone] * BI Mammogram Screening Tomosynthesis Bilateral (03/16/2023 3:02 PM EDT) Anatomical Region Laterality Modality Breast Bilateral Mammography 03/16/2023 3:02 PM EDT Narrative 04/06/2023 11:34 PM EDT ? [facility] [place] ? [address] [facility] ?[place] [address] ? Mammography Report ? Signed ? Patient: Naida,Violet ?MR#: [id number] ?? [id number] ? : 1960 ?Acct:[id number] ? Age/Sex: 63 / F ?ADM Date: 10/04/23 ? Loc: HO.MAMMO ? Attending Dr: Pretty Zayas MD ? Ordering Physician: Pretty Molina MD ?Results: ?? 2Benign Findings ? Date of Service: 03/16/23 ?Follow Up: 1 Year From Orig ?? inal Mammogram ? Procedure(s): MM tomosynthesis screening BI ?? Accession Number(s): [id number] ? cc: Pretty Molina MD ? EXAMINATION: [...] MD in OV> ? 04/06/234 ? DD/ ? TD/TT: ? Arcade Games Mechanic: ? Procedure Note Karolyn, Image - 04/06/2023 [place] [facility] [address] [place] [address] Mammography Report Signed Patient: Abraham Pascal#: [id number] : 1960cct:[id number] Age/Sex: 63 / FADM Date: 03/16/23 Loc: HO.MAMMO Attending Dr: Pretty Zayas MD Ordering Physician: Pretty Molina MDResults: 2Benign Findings Date of Service: 03/16/23Follow Up: 1 Year From Orig inal Mammogram Procedure(s): MM tomosynthesis screening BI Accession Number(s): [id number] cc: Pretty Molina MD EXAMINATION: MM SCREENING [...] by Kimberlyn Anderson MD in OV> 04/06/23 4328 DD/ 1502 TD/TT: Arcade Games Mechanic: us Pretty Zayas MD IMG BI PROCEDURES Fadi tiara Result - Final * Hepatitis C Antibody (02/03/2021 12:01 PM EDT) Hepatitis C Antibody Nonreactive Nonreactive [facility] Comment: Antibodies to HCV not [...] detection of this assay. ?? The [employer] Safety Glass Installer HIV Ag/Ab Combo assay result and supplemental assay results should be interpreted in conjunction with the patient's clinical presentation, history and other laboratory results. ??If the results are inconsistent with clinical evidence, additional testing is suggested to confirm the result. Hepatitis B Surface Antigen Negative Negative [facility] 02/03/2021 12:0 1 PM EDT us Ramesh Gurrola MD HISTORICAL/NON ORDERABLE LABS Fi nal Result [facility] [address] [place] [address], from Last 3 Months or Most Recently Relevant to Health Maintenance Insurance [employer] C3 Care Teams Program Aide Group Work Relationship Specialty Start Date End Date Pretty Molina MD [address] [place] [address] PCP - General Family Medicine 12/24/20
--- OUTSIDE RECORDS SUMMARY | 2024-07-18 13:40 | XMS_ITS | Encounter Summary ---
Author Organization [employer] Address [address] [facility] 7t [place] [address] Care Team Providers Care Quality Director Name Role Phone Pretty Molina MD Primary Care Provide r Reason for Visit * Reason Comments Med Refill Encounter Details Date Type Department Care Team (Late st Contact Info) Description 12/06/2023 Refill [facility] [address] [place], [place] [phone] Pretty Molina MD [address] [place], [place] [phone] Other chronic pain Social History Tobacco Use [...] Description 07/23/2024 1:00 PM EST Medication Management [address] [address] Guero Burns, PharmD [address] [place] [address] 10/04/2024 1:00 PM EDT Clinical Support [address] [address] Sandra Boyd, TONY documented as of this encounter Visit Diagnoses Diagnosis Other chronic pain documented in this encounter Additional Health Concerns Assessment Noted Time PHQ-9 Depression Total Score: 12 023 3:08 PM EDT documented as of this encounter Care Teams Quality Director Relationship Specialty Start Date End Date Pretty Molina MD [address] [place] [phone] PCP - General Family Medicine 12/24/20 documented as of this encounter
--- OUTSIDE RECORDS SUMMARY | 2024-07-18 13:40 | XMS_ITS | Encounter Summary ---
Author Organization [employer] Address [address] [facility] 7t [place] [address] Care Team Providers Care Metal And Plastic Heater Name Role Phone Pretty Molina MD Primary Care Provide r Reason for Visit * Reason Comments Med Refill Encounter Details Date Type Department Care Team (Late st Contact Info) Description 04/05/2024 Refill [facility] [address] [place], [place] [phone] Pretty Molina MD [address] [place] [address] Other chronic pain Social History Tobacco Use [...] Description 07/23/2024 1:00 PM EST Medication Management [address] [address] Guero Burns, PharmD [address] [place] [address] 10/04/2024 1:00 PM EDT Clinical Support [address] [address] Sandra Boyd, RN documented as of this encounter Visit Diagnoses Diagnosis Other chronic pain documented in this encounter Additional Health Concerns Assessment Noted Time PHQ-9 Depression Total Score: 4 01/06/20 24 2:22 PM EDT documented as of this encounter Care Teams Metal And Plastic Heater Relationship Specialty Start Date End Date Pretty Molina MD [address] [place] [phone] PCP - General Family Medicine 12/24/20 documented as of this encounter
--- OUTSIDE RECORDS SUMMARY | 2024-07-18 13:40 | XMS_ITS | Encounter Summary ---
Author Organization [employer] Address [address] [facility] 7t [place] [address] Care Team Providers Care Production Miner Name Role Phone Pretty Molina MD Primary Care Provide r Reason for Visit * Reason Comments Med Refill Encounter Details Date Type Department Care Team (Late st Contact Info) Description 04/15/2024 Refill [facility] [address] [place] [address] Pretty Molina MD [address] [place] [address] Social History Tobacco Use Types Packs/Day Years [...] Description 07/23/2024 1:00 PM EST Medication Management [address] [address] Guero Burns, PharmD [address] [place] [address] 10/04/2024 1:00 PM EDT Clinical Support [address] [address] Sandra Boyd, RN documented as of this encounter Visit Diagnoses Not on filedocumented in this encounter Additional Health Concerns Assessment Noted Time PHQ-9 Depression Total Score: 4 01/06/20 24 2:22 PM EDT documented as of this encounter Care Teams Production Miner Relationship Specialty Start Date End Date Pretty Molina MD [address] [place] [phone] PCP - General Family Medicine 12/24/20 documented as of this encounter
--- OUTSIDE RECORDS SUMMARY | 2024-07-18 13:40 | XMS_ITS | Encounter Summary ---
Author Organization [employer] Address [address] [facility] 7 [place] [address] Care Team Providers Care Presidential Support Specialist Name Role Phone Pretty Molina MD Primary Care Provide r Reason for Visit * Reason Onset Date Comments Med Refill 01/05/2023 Encounter Details Date Type Department Care Team (Late st Contact Info) Description 01/05/2023 Telephone [facility] [address] [place] [address] Pretty Molina MD [address] [place] [address] Med Refill Social History Tobacco Use Types [...] Description 07/23/2024 1:00 PM EST Medication Management [address] [address] Guero Burns, PoloD [address] [place] [address] 10/04/2024 1:00 PM EDT Clinical Support [address] [address] Sandra Boyd, TONY documented as of this encounter Visit Diagnoses Not on filedocumented in this encounter Additional Health Concerns Assessment Noted Time PHQ-9 Depression Total Score: 12 11/24/ 023 3:08 PM EDT documented as of this encounter Care Teams Presidential Support Specialist Relationship Specialty Start Date End Date Pretty Molina MD [address] [place] [phone] PCP - General Family Medicine 12/24/20 documented as of this encounter
--- OUTSIDE RECORDS SUMMARY | 2024-07-18 13:40 | XMS_ITS | Encounter Summary ---
Author Organization [employer] Address [address] [facility] 7t [place] [address] Care Team Providers Care Yardage Caller Name Role Phone Pretty Molina MD Primary Care Provide r Reason for Visit * Reason Comments Med Refill Encounter Details Date Type Department Care Team ([facility] st Contact Info) Description 03/23/2023 Refill [facility] [address] [place] [address] Pretty Molina MD [address] [place] [address] Neuropathy Social History Tobacco Use Types Packs/Day [...] 07/23/2024 1:00 PM EST Medication Management [address] [address] Guero Burns, PharmD [address] [place] [address] 10/04/2024 1:00 PM EDT Clinical Support [address] [address] Sandra Boyd, TONY documented as of this encounter Visit Diagnoses Diagnosis Neuropathy Mononeuritis of unspecified site documented in this encounter Additional Health Concerns Assessment Noted Time PHQ-9 Depression Total Score: 12 023 3:08 PM EDT documented as of this encounter Care Teams Yardage Caller Relationship Specialty Start Date End Date Pretty Molina MD [address] [place] [phone] PCP - General Family Medicine 12/24/20 documented as of this encounter
== END 2024-07-18 11:16 | disposition home or self-care (01) ==
LOC: HO.LNP 11:15
PROVIDERS: PCP Internal Medicine; Visit Provider Obstetrics & Gynecology
DX: R93.89 Abnormal findings on diagnostic imaging of other specified body structures (principal)
CPT/HCPCS: 58100; 88305

== ENCOUNTER 2024-07-18 11:15 | Outpatient (AMB) | payer MEDICAID, SELFPAY ==
--- NOTE | 2024-07-18 11:19 | A.OFFVIS_ITS ---
Vital Signs 07/18/24 11:20 Height 5 ft 2 in Weight 211 lb BMI 38.6 Intake Visit Reasons: EMB It Operations Specialist Required: Yes It Operations Specialist Language: Canvas Cutter Machine Services: It Operations Specialist Present (in person) It Operations Specialist Name: Kandice HUMPHREY Information Interpreted: non-clinical & clinical Superintendent Police: Superintendent Police Present (Kandice HUMPHREY) Accompanied by: Self / Same As Patient Allergies morphine [MORPHINE] Allergy (Unknown, Verified 07/18/24 11:38) UNKNOWN Post menopausal: Yes HPI Comments Details: Presenting for EMB [facility] Medical History Asymmetric septal hypertrophy Heart block atrioventricular Chronic pain Depression Vascular insufficiency Lichen Hip pain Foot pain Foot callus Cubital tunnel syndrome Chronic vulvovaginitis Carpal tunnel syndrome Burn scar contracture of upper arm Blurring of visual image Mood disorder Hyperlipidemia Renal cyst Hematuria of unknown cause Smoker Arthritis Back pain Diabetes GERD (gastroesophageal reflux disease) Fibromyalgia Anxiety and depression MARK on CPAP Chronic sinusitis Asthma Elevated cholesterol HTN (hypertension) Surgical History Hx of cystoscopy S/P lumpectomy of breast (04/20/21) Hx of colonoscopy Hx of dilation and curettage H/O tubal ligation History of skin graft Family History Father No problems noted. Mother No problems noted. 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 Female Reproductive History Menstrual Age of Menarche: 14 Review of Systems Const All systems reviewed & are unremarkable except as noted in HPI and below Reports as per HPI and Reports no additional complaints GI Reports no additional complaints Reports no additional complaints Physical Exam Vital Signs: BMI result Body Mass Index 38.6 Office Procedures Endometrial Biopsy Details: The patient was counseled regarding the indication and benefits of endometrial sampling to rule out endometrial pathology including not limited to endometrial hyperplasia or endometrial cancer and others; The alternatives (Either do nothing vs. hysteroscopy D&C) & the risks were discussed with the patient including but not limited: pain, uterine perforation, bleeding, infection, possible injury to bladder, bowel, ureter, possible need for blood transfusion with all its possible risks. The patient verbalized understanding all questions answered and signed consent. The patient was placed into the dorsal lithotomy position; a speculum was inserted in the vagina. Using aseptic technique for the procedure, the cervix was cleansed with Betadine. The anterior lip of the cervix was grasped with a single tooth tenaculum. The uterus was sounded to 7 cm with a 4 mm Pipelle was used. Minimal tissue samples were obtained and placed in formalin, in a patient labeled container and sent to the pathology department. At the end of the procedure, there was minimal bleeding noted The patient tolerated the procedure well and was discharged in good condition with the following instructions: Nothing in the vagina until the bleeding stops. No sex until the bleeding stops, to call if any of the following occurs: fever (>100.4), flu-like symptoms, abdominal pain, heavy bleeding, four smelling vaginal discharge. The patient was instructed to schedule a Follow up appointment in 2 weeks to discuss pathology results of the biopsy and treatment options. This note was generated with a voice recognition program. Some errors may have been overlooked during the review of this note. Sometimes these errors may affect the content or meaning of a given sentence. [id number] Biopsy Assessment & Plan Assessment & Plan (1) Thickened endometrium: Code(s): R93.89 - Abnormal findings on diagnostic imaging of other specified body structures Category: Medical Plan: EMB done, see procedure note Orders: Orders AMB Endometrial Biopsy Today R93.89 - Abnormal findings on diagnostic imaging of other specified body structures Coding Level of Care Code Procedure Only Diagnoses Thickened endometrium R93.89 CPT Codes Endometrial Biopsy - CPT: 04278-[id number] Biopsy ([id number])
[2024-07-18 11:20] VITALS: BMI 38.6
== END 2024-07-18 12:02 | disposition home or self-care (01) ==
LOC: HO.HWS 11:15
PROVIDERS: PCP Internal Medicine; Visit Provider Obstetrics & Gynecology
DX: R93.89 Abnormal findings on diagnostic imaging of other specified body structures (principal)
CPT/HCPCS: 58100

== ENCOUNTER 2024-07-20 11:40 | Outpatient (REF) | payer MEDICAID, SELFPAY ==
--- NOTE | ~2024-07-20 | US_ITS ---
CLINICAL HISTORY: D25.9 - Leiomyoma of uterus, unspecified US pelvis transvaginal Comparison: 04/10/2024 Findings: Transvaginal scanning performed. Anteverted uterus is 7.1 cm length. Normal myometrium. No endometrial lesion, 2.0 mm thickness. Is a fundal myometrial 1.2 x 1.2 x 0 9 cm leiomyoma. Right ovary 2.4 x 1.7 x 0.8 cm. Left ovary not visualized. No free fluid. IMPRESSION: 1. Uterine fundal myometrial leiomyoma This document has been electronically signed by: Eliceo David MD on 07/21/2024 09:20:05
--- OUTSIDE RECORDS SUMMARY | 2024-07-20 12:43 | XMS_ITS | Encounter Summary ---
Author Organization [employer] Address 75 [facility] 7t [place] [address] Care Team Providers Care Note Taker Name Role Phone Pretty Molina MD Primary Care Provide r Encounter Details Date Type Department Care Team (Latest Contact Info) Description [address] [facility] CONVERSIONS Dental, Provider, DDS Social History [...] PM EST Medication Management [facility] MEDICINE [address] [place] [address] Guero Burns, PoloD 230 [place] [address] 10/04/2024 1:00 PM EDT Clinical Support [facility] MEDICINE [address] [place] [address] Sandra Boyd, TONY documented as of this encounter Visit Diagnoses Not on filedocumented in this encounter Care Teams Note Taker Relationship Specialty Start Date End Date Pretty Molina MD 230 [place] [address] PCP - General Family Medicine 12/24/20 documented as of this encounter
--- OUTSIDE RECORDS SUMMARY | 2024-07-20 12:43 | XMS_ITS | Encounter Summary ---
Author Organization [employer] Address 75 [facility] 7t [place] [address] Care Team Providers Care Product Lister Name Role Phone Pretty Molina MD Primary Care Provide r Reason for Visit * Reason Comments Med Refill Encounter Details Date Type Department Care Team (Late st Contact Info) Description 06/11/2022 Refill [facility] MEDICINE 230 [place], [place] [phone] Yasmine Hernandez MD 230 [place] [address] Chronic pain syndrome Social History Tobacco Use [...] Cedillo RN - 06/15/2022 10:45 AM EST Lathing Supervisor ck 06/15/22. documented in this encounter Plan of Treatment Upcoming Encounters Date Type Department Care Team (Late st Contact Info) Description 07/23/2024 1:00 PM EST Medication Management [facility] MEDICINE 230 [place] [address] Guero Burns, PharmD 230 [place] [address] 10/04/2024 1:00 PM EDT Clinical Support [facility] MEDICINE 230 [place] [address] Sandra Boyd RN documented as of this encounter Visit Diagnoses Diagnosis Chronic pain syndrome documented in this encounter Care Teams Product Lister Relationship Specialty Start Date End Date Pretty Molina MD [address] [place] [address] PCP - General Family Medicine 12/24/20 documented as of this encounter
--- OUTSIDE RECORDS SUMMARY | 2024-07-20 12:43 | XMS_ITS | Encounter Summary ---
Author Organization [employer] Address 75 [facility] 7t [place] [address] Care Team Providers Care Makeup Editor Name Role Phone Pretty Molina MD Primary Care Provide r Encounter Details Date Type Department Care Team ([facility] Contact Info) Description 09/01/2022 Orders Only [facility] CHC MED & PEDS [address] [place], [place] [phone] Jocelyn Fleming LPN Social History Tobacco Use [...] Description 07/23/2024 1:00 PM EST Medication Management [facility] MEDICINE [address] [place] [address] Guero Burns, PoloD 230 [place] [address] 10/04/2024 1:00 PM EDT Clinical Support [facility] MEDICINE 230 [place] [address] Sandra Boyd, RN documented as of this encounter Visit Diagnoses Not on filedocumented in this encounter Care Teams Makeup Editor Relationship Specialty Start Date End Date Pretty Molina MD 230 [place] [address] PCP - General Family Medicine 12/24/20 documented as of this encounter
--- OUTSIDE RECORDS SUMMARY | 2024-07-20 12:43 | XMS_ITS | Encounter Summary ---
Author Organization [employer] Address 75 [facility] 7t [place] [address] Care Team Providers Care Modern Greek Studies Professor Name Role Phone Pretty Molina MD Primary Care Provide r Reason for Visit * Reason Onset Date Comments Med Refill 06/10/2022 Encounter Details Date Type Department Care Team (Late st Contact Info) Description 06/10/2022 Refill [facility] MEDICINE 230 [place] [address] Pretty Molina MD 230 [place] [address] Social History Tobacco Use Types Packs/Day Years [...] Description 07/23/2024 1:00 PM EST Medication Management [facility] MEDICINE 230 [place], [place] [phone] Guero Burns, PharmD 230 [place] [address] 10/04/2024 1:00 PM EDT Clinical Support [facility] MEDICINE [address] [place] [address] [phone] Sandra Boyd, RN documented as of this encounter Visit Diagnoses Not on filedocumented in this encounter Care Teams Modern Greek Studies Professor Relationship Specialty Start Date End Date Pretty Molina MD [address] [place] [address] PCP - General Family Medicine 12/24/20 documented as of this encounter
--- OUTSIDE RECORDS SUMMARY | 2024-07-20 12:43 | XMS_ITS | Encounter Summary ---
Author Organization [employer] Address 75 [facility] 7t [place] [address] Care Team Providers Care Steam Room Attendant Name Role Phone Pretty Molina MD Primary Care Provide r Reason for Visit * Reason Comments Med Refill Encounter Details Date Type Department Care Team ([facility] st Contact Info) Description 03/23/2023 Refill [facility] CHC MED & PEDS 505 [place] [address] Pretty Molina MD 230 [place] [address] Neuropathy Social History Tobacco Use Types Packs/Day [...] Description 07/23/2024 1:00 PM EST Medication Management [address] [address] Guero Burns, PharmD [address] [place] [address] 10/04/2024 1:00 PM EDT Clinical Support [address] [address] Sandra Boyd, TONY documented as of this encounter Visit Diagnoses Diagnosis Neuropathy Mononeuritis of unspecified site documented in this encounter Additional Health Concerns Assessment Noted Time PHQ-9 Depression Total Score: 12 023 3:08 PM EDT documented as of this encounter Care Teams Steam Room Attendant Relationship Specialty Start Date End Date Pretty Molina MD [address] [place] [address] PCP - General Family Medicine 12/24/20 documented as of this encounter
--- OUTSIDE RECORDS SUMMARY | 2024-07-20 12:43 | XMS_ITS | Encounter Summary ---
Author Organization [employer] Address 75 [facility] 7t [place] [address] Care Team Providers Care Shake Maker Name Role Phone Pretty Molina MD Primary Care Provide r Reason for Visit * Reason Comments Med Refill Encounter Details Date Type Department Care Team (Late st Contact Info) Description 07/18/2024 Refill [facility] MEDICINE 230 [place] [address] Pretty Molina MD 230 [place] [address] Dry eye syndrome of bilateral lacrimal glands [...] Description 07/23/2024 1:00 PM EST Medication Management [address] [address] Guero Burns, PharmD [address] [place] [address] 10/04/2024 1:00 PM EDT Clinical Support [address] [address] Sandra Boyd, TONY documented as of this encounter Visit Diagnoses Diagnosis Dry eye syndrome of bilateral lacrimal glands documented in this encounter Additional Health Concerns Assessment Noted Time PHQ-9 Depression Total Score: 4 01/06/20 24 2:22 PM EDT documented as of this encounter Care Teams Shake Maker Relationship Specialty Start Date End Date Pretty Molina MD [address] [place] [address] PCP - General Family Medicine 12/24/20 documented as of this encounter
--- OUTSIDE RECORDS SUMMARY | 2024-07-20 12:43 | XMS_ITS | Encounter Summary ---
Author Organization [employer] Address 75 [facility] 7t [place] [address] Care Team Providers Care Furnace Unloader Name Role Phone Pretty Molina MD Primary Care Provide r Encounter Details Date Type Department Care Team (Late st Contact Info) Description 07/12/2022 Orders Only [facility] CHC MED & PEDS 505 [place], [place] [phone] Jocelyn Fleming LPN Social History Tobacco Use [...] PM EST Medication Management [address] [address] Guero Bursn, PharmD 230 [place] [address] 10/04/2024 1:00 PM EDT Clinical Support [address] [phone] Sandra Boyd, RN documented as of this encounter Visit Diagnoses Not on filedocumented in this encounter Care Teams Furnace Unloader Relationship Specialty Start Date End Date Pretty Molina MD [address] [place] [address] PCP - General Family Medicine 12/24/20 documented as of this encounter
--- OUTSIDE RECORDS SUMMARY | 2024-07-20 12:43 | XMS_ITS | Encounter Summary ---
Author Organization [employer] Address 75 [facility] 7t [place] [address] Care Team Providers Care Painting Instructor Name Role Phone Pretty Molina MD Primary Care Provide r Reason for Visit * Reason Comments Med Refill Encounter Details Date Type Department Care Team (Late st Contact Info) Description 05/02/2023 Refill [facility] MEDICINE 230 [place] [address] Jocelyn Bender DO 230 [place] [address] Seasonal allergic rhinitis, unspecified trigger Social History [...] Description 07/23/2024 1:00 PM EST Medication Management [address] [address] Guero Burns, PharmD [address] [place] [address] 10/04/2024 1:00 PM EDT Clinical Support [address] [address] Sandra Boyd, TONY documented as of this encounter Visit Diagnoses Diagnosis Seasonal allergic rhinitis, unspecified trigger documented in this encounter Additional Health Concerns Assessment Noted Time PHQ-9 Depression Total Score: 12 023 3:08 PM EDT documented as of this encounter Care Teams Painting Instructor Relationship Specialty Start Date End Date Pretty Molina MD [address] [place] [address] PCP - General Family Medicine 12/24/20 documented as of this encounter
--- OUTSIDE RECORDS SUMMARY | 2024-07-20 12:43 | XMS_ITS | Encounter Summary ---
Author Organization [employer] Address 75 [facility] 7t [place] [address] Care Team Providers Care Rack Puller Name Role Phone Pretty Molina MD Primary Care Provide r Reason for Visit * Reason Comments Med Refill Encounter Details Date Type Department Care Team (Late st Contact Info) Description 07/05/2023 Refill [facility] CHC MED & PEDS 505 [place], [place] [phone] Pretty Molina MD 230 [place] [address] Social History Tobacco Use Types Packs/Day Years [...] 07/23/2024 1:00 PM EST Medication Management [address] [address] Guero Burns, PharmD [address] [place] [address] 10/04/2024 1:00 PM EDT Clinical Support [address] [address] Sandra Boyd, TONY documented as of this encounter Visit Diagnoses Not on filedocumented in this encounter Additional Health Concerns Assessment Noted Time PHQ-9 Depression Total Score: 12 023 3:08 PM EDT documented as of this encounter Care Teams Rack Puller Relationship Specialty Start Date End Date Pretty Molina MD [address] [place] [address] PCP - General Family Medicine 12/24/20 documented as of this encounter
--- OUTSIDE RECORDS SUMMARY | 2024-07-20 12:43 | XMS_ITS | Encounter Summary ---
Author Organization [employer] Address 75 [facility] 7t [place] [address] Care Team Providers Care Fulfillment Mail Clerk Name Role Phone Pretty Molina MD Primary Care Provide r Reason for Visit * Reason Comments Med Refill Encounter Details Date Type Department Care Team ([facility] st Contact Info) Description 05/12/2023 Refill [facility] CHC MED & PEDS 505 [place], [place] [phone] Pretty Molina MD 230 [place] [address] Neuropathy Social History Tobacco Use Types Packs/Day [...] Description 07/23/2024 1:00 PM EST Medication Management [address] [address] Guero Burns, PharmD [address] [place] [address] 10/04/2024 1:00 PM EDT Clinical Support [address] [address] Sandra Boyd, TONY documented as of this encounter Visit Diagnoses Diagnosis Neuropathy Mononeuritis of unspecified site documented in this encounter Additional Health Concerns Assessment Noted Time PHQ-9 Depression Total Score: 12 023 3:08 PM EDT documented as of this encounter Care Teams Fulfillment Mail Clerk Relationship Specialty Start Date End Date Pretty Molina MD [address] [place] [address] PCP - General Family Medicine 12/24/20 documented as of this encounter
--- OUTSIDE RECORDS SUMMARY | 2024-07-20 12:43 | XMS_ITS | Encounter Summary ---
Author Organization [employer] Address 75 [facility] 7t [place] [address] Care Team Providers Care Butter Printer Name Role Phone Pretty Molina MD Primary Care Provide r Reason for Visit * Reason Onset Date Comments Appointment Request 06/10/2022 Encounter Details Date Type Department Care Team ([facility] st Contact Info) Description 06/10/2022 Telephone [facility] MEDICINE 230 [place] [address] Pretty Molina MD 230 [place] [address] Appointment Request Social History Tobacco Use Types [...] will leave a message. Please contact at [phone] Speaks Lao. documented in this encounter Plan of Treatment Upcoming Encounters Date Type Department Care Team (Late st Contact Info) Description 07/23/2024 1:00 PM EST Medication Management [facility] MEDICINE [address] [place] [address] Guero Bursn, PharmD [address] [place] [address] 10/04/2024 1:00 PM EDT Clinical Support [address] [address] Sandra Boyd RN documented as of this encounter Visit Diagnoses Not on filedocumented in this encounter Care Teams Butter Printer Relationship Specialty Start Date End Date Pretty Molina MD 230 [place] [address] PCP - General Family Medicine 12/24/20 documented as of this encounter
--- OUTSIDE RECORDS SUMMARY | 2024-07-20 12:43 | XMS_ITS | Encounter Summary ---
Author Organization [employer] Address 75 [facility] 7t [place] [address] Care Team Providers Care Ring Spinner Name Role Phone Pretty Molina MD Primary Care Provide r Reason for Visit * Reason Onset Date Comments Med Refill 07/09/2024 Encounter Details Date Type Department Care Team (Late st Contact Info) Description 07/09/2024 Refill [facility] MEDICINE 230 [place] [address] Pretty Molina MD 230 [place] [address] Other chronic pain Social History Tobacco Use [...] 5-325 MG tablet To be sent to: [facility] [place], [place] - [address] [place] [address] documented in this encounter Plan of Treatment Upcoming Encounters Date Type Department Care Team ([facility] st Contact Info) Description 07/23/2024 1:00 PM EST Medication Management [facility] MEDICINE [address] [place] [address] Guero Burns, PharmD [address] [place] [address] 10/04/2024 1:00 PM EDT Clinical Support [address] [address] Sandra Boyd, TONY documented as of this encounter Visit Diagnoses Diagnosis Other chronic pain documented in this encounter Additional Health Concerns Assessment Noted Time PHQ-9 Depression Total Score: 4 01/06/20 24 2:22 PM EDT documented as of this encounter Care Teams Ring Spinner Relationship Specialty Start Date End Date Pretty Molina MD 230 [place] [address] PCP - General Family Medicine 12/24/20 documented as of this encounter
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
--- OUTSIDE RECORDS SUMMARY | 2024-07-20 12:43 | XMS_ITS | Encounter Summary ---
Author Organization [employer] Address 75 [facility] 7t [place] [address] Care Team Providers Care Ortho Assistant Name Role Phone Pretty Molina MD Primary Care Provide r Reason for Visit * Reason Onset Date Comments Med Refill 01/05/2023 Encounter Details Date Type Department Care Team (Late st Contact Info) Description 01/05/2023 Telephone [facility] MEDICINE 230 [place] [address] Pretty Molina MD 230 [place] [address] Med Refill Social History Tobacco Use Types [...] Description 07/23/2024 1:00 PM EST Medication Management [address] [address] Guero Burns, PoloD 230 [place] [address] 10/04/2024 1:00 PM EDT Clinical Support [address] [address] Sandra Boyd, TONY documented as of this encounter Visit Diagnoses Not on filedocumented in this encounter Additional Health Concerns Assessment Noted Time PHQ-9 Depression Total Score: 12 11/24/ 023 3:08 PM EDT documented as of this encounter Care Teams Ortho Assistant Relationship Specialty Start Date End Date Pretty Molina MD [address] [place] [address] PCP - General Family Medicine 12/24/20 documented as of this encounter
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
--- OUTSIDE RECORDS SUMMARY | 2024-07-20 12:43 | XMS_ITS | Encounter Summary ---
Author Organization [employer] Address 75 [facility] 7t [place] [address] Care Team Providers Care Escrow Officer Name Role Phone Pretty Molina MD Primary Care Provide r Reason for Visit * Reason Comments Med Refill Encounter Details Date Type Department Care Team (Late st Contact Info) Description 06/25/2024 Refill [facility] MED & PEDS 505 [place] [address] Pretty Molina MD 230 [place] [address] Primary hypertension Social History Tobacco Use Types [...] 07/23/2024 1:00 PM EST Medication Management [address] [address] Guero Burns, PharmD [address] [place] [address] 10/04/2024 1:00 PM EDT Clinical Support [address] [address] Sandra Boyd, RN documented as of this encounter Visit Diagnoses Diagnosis Primary hypertension Unspecified essential hypertension documented in this encounter Additional Health Concerns Assessment Noted Time PHQ-9 Depression Total Score: 4 01/06/20 24 2:22 PM EDT documented as of this encounter Care Teams Escrow Officer Relationship Specialty Start Date End Date Pretty Molina MD [address] [place] [address] PCP - General Family Medicine 12/24/20 documented as of this encounter
--- OUTSIDE RECORDS SUMMARY | 2024-07-20 12:43 | XMS_ITS | Encounter Summary ---
Author Organization [employer] Address 75 [facility] 7t [place] [address] Care Team Providers Care Pharmaceutical Representative Name Role Phone Pretty Molina MD Primary Care Provide r Encounter Details Date Type Department Care Team (Latest Contact Info) Description 05/31/2019 Abstract [facility] CONVERSIONS Dental, Provider, DDS Social History Tobacco [...] Medication Management [facility] MEDICINE [address] [place] [address] Guero Burns, PoloD 230 [place] [address] 10/04/2024 1:00 PM EDT Clinical Support [facility] MEDICINE [address] [place] [address] Sandra Boyd, TONY documented as of this encounter Visit Diagnoses Not on filedocumented in this encounter Care Teams Pharmaceutical Representative Relationship Specialty Start Date End Date Pretty Molina MD 230 [place] [address] PCP - General Family Medicine 12/24/20 documented as of this encounter
--- OUTSIDE RECORDS SUMMARY | 2024-07-20 12:43 | XMS_ITS | Encounter Summary ---
Author Organization [employer] Address 75 [facility] 7t [place] [address] Care Team Providers Care Inventory Representative Name Role Phone Pretty Molina MD Primary Care Provide r Reason for Visit * Reason Comments Med Refill Encounter Details Date Type Department Care Team (Late st Contact Info) Description 06/20/2024 Refill [facility] MEDICINE 230 [place] [address] Noemi Schwartz MD 230 [place] [address] Seasonal allergies Social History Tobacco Use Types [...] Description 07/23/2024 1:00 PM EST Medication Management [address] [address] Guero Burns, PharmD [address] [place] [address] 10/04/2024 1:00 PM EDT Clinical Support [address] [address] Sandra Boyd, TONY documented as of this encounter Visit Diagnoses Diagnosis Seasonal allergies Allergic rhinitis, cause unspecified documented in this encounter Additional Health Concerns Assessment Noted Time PHQ-9 Depression Total Score: 4 01/06/20 24 2:22 PM EDT documented as of this encounter Care Teams Inventory Representative Relationship Specialty Start Date End Date Pretty Molina MD [address] [place] [address] PCP - General Family Medicine 12/24/20 documented as of this encounter
--- OUTSIDE RECORDS SUMMARY | 2024-07-20 12:43 | XMS_ITS | Encounter Summary ---
Author Organization [employer] Address [address] [facility] 7t [place] [address] Care Team Providers Care Palletizer Name Role Phone Pretty Molina MD Primary Care Provide r Encounter Details Date Type Department Care Team (Late st Contact Info) Description 07/01/2022 Orders Only [facility] [address] [place] [address] Marti Cedillo RN Chronically on opiate therapy [...] 07/23/2024 1:00 PM EST Medication Management [address] [phone] Guero Burns, PoloD [address] [place] [address] 10/04/2024 1:00 PM EDT Clinical Support [address] [address] Sandra Boyd RN documented as of this encounter Visit Diagnoses Diagnosis Chronically on opiate therapy- Primary documented in this encounter Care Teams Palletizer Relationship Specialty Start Date End Date Pretty Molina MD [address] [place] [phone] PCP - General Family Medicine 12/24/20 documented as of this encounter
--- OUTSIDE RECORDS SUMMARY | 2024-07-20 12:43 | XMS_ITS | Encounter Summary ---
Author Organization [employer] Address [address] [facility] 7t [place] [address] Care Team Providers Care Tool Inspector Name Role Phone Pretty Molina MD Primary Care Provide r Reason for Visit * Reason Comments Med Refill Encounter Details Date Type Department Care Team (Late st Contact Info) Description 05/09/2023 Refill [facility] [address] [place], [place] [phone] Pretty Molina MD [address] [place], [place] [phone] Other chronic pain Social History Tobacco Use [...] [facility] [address] [place] [phone] Guero Burns, PharmD [address] [place] [phone] 10/04/2024 1:00 PM EDT Clinical Support [address] [address] Sandra Boyd, RN documented as of this encounter Visit Diagnoses Diagnosis Other chronic pain documented in this encounter Additional Health Concerns Assessment Noted Time PHQ-9 Depression Total Score: 12 023 3:08 PM EDT documented as of this encounter Care Teams Tool Inspector Relationship Specialty Start Date End Date Pretty Molina MD [address] [place] [phone] PCP - General Family Medicine 12/24/20 documented as of this encounter
--- OUTSIDE RECORDS SUMMARY | 2024-07-20 12:43 | XMS_ITS | Encounter Summary ---
Author Organization [employer] Address [address] [facility] 7t [place] [address] Care Team Providers Care Proposal Consultant Name Role Phone Pretty Molina MD Primary Care Provide r Reason for Visit * Reason Comments Med Refill Encounter Details Date Type Department Care Team (Late st Contact Info) Description 03/30/2023 Refill [facility] [address] [place], [place] [phone] Pretty Molina MD [address] [place] [address] Other chronic pain Social History Tobacco Use [...] Description 07/23/2024 1:00 PM EST Medication Management [facility] [address] [place] [phone] Guero Burns, PharmD [address] [place] [phone] 10/04/2024 1:00 PM EDT Clinical Support [address] [address] Sandra Boyd, RN documented as of this encounter Visit Diagnoses Diagnosis Other chronic pain documented in this encounter Additional Health Concerns Assessment Noted Time PHQ-9 Depression Total Score: 12 023 3:08 PM EDT documented as of this encounter Care Teams Proposal Consultant Relationship Specialty Start Date End Date Pretty Molina MD [address] [place] [phone] PCP - General Family Medicine 12/24/20 documented as of this encounter
--- OUTSIDE RECORDS SUMMARY | 2024-07-20 12:43 | XMS_ITS | Encounter Summary ---
Author Organization [employer] Address [address] [facility] 7t [place] [address] Care Team Providers Care Track Equipment Operator Name Role Phone Pretty Molina MD Primary Care Provide r Reason for Visit * Reason Comments Med Refill Encounter Details Date Type Department Care Team (Late st Contact Info) Description 06/06/2024 Refill [facility] [address] [place] [address] Pretty Molina MD [address] [place] [address] Type 2 diabetes mellitus with hyperglycemia, without long-term current use of insulin ([facility]) Social History Tobacco Use Types Packs/Day Years [...] 07/23/2024 1:00 PM EST Medication Management [address] [address] Guero Burns, PharmD [address] [place] [phone] 10/04/2024 1:00 PM EDT Clinical Support [address] [address] Sandra Boyd RN documented as of this encounter Visit Diagnoses Diagnosis Type 2 diabetes mellitus with hyperglycemia, without long-term current use of insulin ([facility]) documented in this encounter Additional Health Concerns Assessment Noted Time PHQ-9 Depression Total Score: 4 01/06/20 24 2:22 PM EDT documented as of this encounter Care Teams Track Equipment Operator Relationship Specialty Start Date End Date Pretty Molina MD [address] [place] [phone] PCP - General Family Medicine 12/24/20 documented as of this encounter
--- OUTSIDE RECORDS SUMMARY | 2024-07-20 12:43 | XMS_ITS | Clinical Summary ---
Author Organization [employer] Address [address] [facility] 7t [place] [address] Care Team Providers Care Entry Level Account Executive Name Role Phone Pretty Molina MD Primary [...] hyperglycemia, without long-term current use of insulin (CMS/[facility]) 1 kit 2 times daily. [...] hyperglycemia, without long-term current use of insulin ([facility]) Inject 1 each into the shoulder, thigh, or buttocks Once daily. 1 each 023 Active Alcohol Swabs (Alcohol Prep) 70 % pads USE FOR TEST BLOOD SUGAR THREE TIMES DAILY 100 each 11 024 Active estradiol (Estrace) 0.1 MG/GM vaginal cream APPLY 1 GRAM TOPICALLY VAGINALLY 2 TIMES PER WEEK. 42.5 g 1 024 Active NIFEdipine XL (Procardia XL) 60 [...] tabletIndication s:Diabetes mellitus type 2 in nonobese ([facility]) TAKE 1 TABLET BY MOUTH EVERY MORNING BEFORE BREAKFAST 90 tablet 3 024 Active Diclofenac Sodium 1 % gelIndications:F ibromyalgia APPLY 2 GRAMS TOPICALLY TO AFFECTED AREA(S) EVERY TWELVE HOURS NEEDED 100 g 1 09/17/2 024 Active glucose blood (FREESTYLE LITE) test strip TEST BLOOD SUGAR 3 TIMES A DAY DIRECTED 100 strip 11 Active TRUEplus Lancets 33G misc TEST BLOOD SUGAR 3 TIMES DAILY 100 each 11 Active atorvastatin (Lipitor) 80 MG tabletIndication s:Essential hypertension Take 1 tablet (80 mg) by mouth Once per day. 30 tablet 11 024 2024 Active fluticasone (Flonase) 50 MCG/ACT nasal sprayIndications :Cough in adult patient INHALE 2 SPRAYS IN EACH NOSTRIL ONCE DAILY 48 g 1 Active cholecalciferol (D3-1000) 25 MCG (1000 UT) capsuleIndicatio ns:Vitamin D deficiency TAKE 1 CAPSULE BY MOUTH EVERY MORNING 90 capsule 1 Active albuterol (2.5 MG/3ML) 0.083% nebulizer solution INHALE 1 AMPULE USING A NEBULIZER EVERY 6 HOURS NEEDED 90 mL 3 Active albuterol (Ventolin HFA) 108 (90 Base) MCG/ACT inhaler INHALE 2 PUFFS EVERY 4 TO 6 HOURS NEEDED 18 g 3 024 Active Jardiance 25 MGIndications:Ty pe 2 diabetes mellitus with other specified complication, unspecified whether terminal manager insulin use (CMS/[facility]) TAKE 1 TABLET BY MOUTH EVERY MORNING 90 tablet 1 Active omeprazole (PriLOSEC) [address] capsule TAKE 1 CAPSULE BY MOUTH EVERY MORNING 90 capsule 1 Active Dulaglutide 1.5 MG/0.5ML solution auto-injectorInd ications:Type 2 diabetes mellitus with hyperglycemia, without long-term current use of insulin (CMS/HCC) Inject 0.5 mL (1.5 mg) under the skin 1 (one) time per week. 0.5 mL 1 Active nicotine polacrilex (Nicotine Mini) 2 MG lozengeIndicatio ns:Tobacco dependence Dissolve 1 lozenge (2 mg) in the mouth if needed for smoking cessation. 100 lozenge Active gabapentin (Neurontin) 300 MG capsuleIndicatio ns:Neuropathy [...] 28 days. 56 tablet 025 2024 Active polyvinyl alcohol (Liquifilm Tears) 1.4 % ophthalmic solutionIndicati ons:Dry eye syndrome of bilateral lacrimal glands PLACE 1 DROP IN EACH EYE THREE TIMES DAILY IN THE MORNING, AT NOON, AND AT BEDTIME NEEDED FOR DRY EYES 15 mL 1 025 Active Aspirin Low Dose 81 MG EC tablet TAKE 1 TABLET BY MOUTH EVERYDAY AT NOON 90 tablet 3 025 Active metFORMIN (Glucophage) 1000 MG tablet TAKE 1 TABLET BY MOUTH TWICE DAILY IN THE MORNING AND IN THE EVENING WITH FOOD 180 tablet 3 025 Active metFORMIN (Glucophage) 1000 MG tablet TAKE 1 TABLET BY MOUTH TWICE DAILY IN THE MORNING AND IN THE EVENING WITH FOOD 180 tablet 3 024 2024 Discontinued Aspirin Low Dose 81 MG EC tablet TAKE 1 TABLET BY MOUTH EVERYDAY AT NOON 90 tablet 3 024 2024 Discontinued hydroCHLOROthiaz malorie 12.5 MG tabletIndication s:Primary hypertension TAKE 1 TABLET BY MOUTH EVERY MORNING (CALL IF BLOOD PRESSURE CONTINUAMENTE >140/90) 90 tablet 1 024 2024 Discontinued polyvinyl alcohol (Liquifilm Tears) 1.4 % ophthalmic solutionIndicati ons:Dry eye syndrome of bilateral lacrimal glands INSTILL 1 DROP IN EACH EYE THREE TIMES DAILY IN THE MORNING, AT NOON, AND AT BEDTIME NEEDED FOR DRY EYES 15 mL 1 024 2024 Discontinued oxyCODONE-acetam inophen (Percocet) [...] Encounters Date Type Department Care Team Description 07/19/2024 Refill [facility] [address] [place] [address] Pretty Molina MD 07/18/2024 Orders Only GENERIC EXTERNAL DATA DEPARTMENT Provider, Generic External Data 07/18/2024 Refill [facility] [address] [place], [place] [phone] Pretty Molina MD Dry eye syndrome of bilateral lacrimal glands 07/09/2024 Refill [facility] [address] [place], [place] [phone] Pretty Molina MD Other chronic pain 07/01/2024 Refill [facility] [address] [place], [place] [phone] Cristian Briones CNM 06/25/2024 Refill [facility] [address] [place] [address] Pretty Molina MD Primary hypertension 06/20/2024 Refill [facility] [address] [place] [address] Noemi Schwartz MD Seasonal allergies 06/16/2024 Refill [facility] [address] [place] [address] Pretty Molina MD Neuropathy 06/11/2024 2:00 PM EST Office Visit [facility] [address] [place] [phone] Pretty Molina MD Chronic cough (Primary Dx); Type 2 diabetes mellitus with hyperglycemia, without long-term current use of insulin (CMS/HCC); Encounter for screening mammogram for malignant neoplasm of breast; Tobacco dependence; Encounter for preventive care 06/11/2024 Travel 06/08/2024 Telephone [facility] [address] [place] [phone] Vicki Ghosh MA Chart Prep 06/07/2024 Telephone [facility] [address] [place] [address] Mauro Frye MA DME from [facility] 06/06/2024 Refill [facility] [address], [place] [phone] Pretty Molina MD Type 2 diabetes mellitus with hyperglycemia, without long-term current use of insulin (CMS/HCC) 06/05/2024 10:30 AM EST Clinical Support [facility] [address] [place] [address] Sandra Boyd, TONY Other chronic pain (Primary Dx) 06/05/2024 Refill [facility] [address] [place] [address] Sandra Boyd, TONY Other chronic pain 06/05/2024 Refill [facility] [address] [place] [phone] Pretty Molina MD Type 2 diabetes mellitus with hyperglycemia, without long-term current use of insulin (CMS/HCC) 06/05/2024 Travel 06/05/2024 Telephone [facility] [address] [place] [phone] Sandra Boyd, TONY Recommend SENIOR INSTRUCTIONAL DESIGNER Tier 3 05/30/2024 Patient Outreach [facility] [address] [place] [phone] Pretty Molina MD Pre-visit Planning ([facility] screening completed on 12/28/2023) 05/25/2024 Telephone [facility] [address] [place] [address] Mauro Frye MA DME from [facility] 05/22/2024 Refill [facility] [address] [place] [phone] Pretty Molina MD 05/20/2024 Refill [facility] [address] [place] [address] Pretty Molina MD Type 2 diabetes mellitus with other specified complication, unspecified whether fci insulin use (CMS/[facility]) 05/16/2024 Refill [facility] [address] [place] [address] Pretty Molina MD 05/08/2024 Telephone [facility] [address] [place] [phone] Pretty Molina MD Med Refill 05/07/2024 Refill [facility] [address] [place] [address] Pretty Molina MD Other chronic pain 05/04/2024 Telephone [facility] [address] [place] [phone] Pretty Molina MD Appointment Request 04/30/2024 Refill [facility] [address] [place] [phone] Pretty Molina MD Neuropathy 04/27/2024 11:00 AM EST Office Visit [facility] [address] [place] [phone] Pretty Molina MD Moderate persistent asthma with exacerbation (Primary Dx); Type 2 diabetes mellitus with hyperglycemia, without long-term current use of insulin ([facility]); RSV (respiratory syncytial virus pneumonia) 04/27/2024 Travel 04/26/2024 Telephone [facility] [address] [place] [address] Pretty Molina MD Nurse Triage 04/26/2024 Refill [facility] [address] [place] [address] Pretty Molina MD Vitamin D deficiency 04/24/2024 Orders Only [facility] External Provider, [facility] 04/21/2024 Refill [facility] [address] [place] [address] Pretty Molina MD Neuropathy 04/19/2024 3:20 PM EST Office Visit [facility] [address] [place] [phone] Lorena Wilson, GRANT Wheezing on auscultation (Primary Dx); Cough in [...] Description 07/23/2024 1:00 PM EST Medication Management [address] [address] Guero Burns, PharmD [address] [place] [address] 10/04/2024 1:00 PM EDT Clinical Support [address] [address] Sandra Boyd, RN Health Maintenance Due Date Last Done Comments CT Colonography 1961 Colonoscopy 1961 Colorectal Cancer Screening 1961 FIT DNA/Cologuard 1961 FIT 1961 FOBT 1960 Sigmoidoscopy 1961 Diabetes: Foot Exam 1971 Eye Exam 1971 [...] Procedure Name Priority Date/Time Associated Diagnosis Comments HEMATOXYLIN AND EOSIN STAIN Routine 07/18/2024 12:02 PM EST POCT GLUCOSE Routine 06/11/2024 1:58 PM EST Type 2 diabetes mellitus with hyperglycemia, without long-term current use of insulin ([facility]/HCC) POCT HECTOR-14 URINE DRUG SCREEN Routine 06/05/2024 [...] hyperglycemia, without long-term current use of insulin ([facility]) LIPID PANEL WITH REFLEX TO DIRECT LDL Routine 01/10/2024 8:26 AM EDT Essential hypertension HPV MRNA E6/E7 REFLEX TO HPV 16, 18/45 Routine 04/18/2023 2:08 PM EST PAP SMEAR Routine 04/18/2023 2:08 PM EST BI MAMMOGRAM SCREENING TOMOSYNTHESIS BILATERAL Routine 03/16/2023 3:02 PM EDT [facility] HISTORICAL HEPATITIS C ANTIBODY Routine 02/03/2021 12:01 PM EDT from Last 3 Months or Most Recently Relevant to Health Maintenance Results * Hematoxylin and Eosin Stain (07/18/2024 12:02 PM EST) 07/18/2024 12:0 2 PM EST 07/19/2024 7:32 AM EST [facility] - 07/20/2024 11:43 AM EST ----- ------- Name: Violet Pascal ? Age/Sex: 64/F [facility] 1960 [id number] ?? Attend Dr: Ramesh Gurrola MD ?Re07/18/24 ?Status: DEP REF ? Location: HO.LNP ?Disch: ? ----- ------- SPEC : [id number] ?RECD: 07/19/24 ? STATUS: ??SOUT ? REQ NUM: [id number] ? YASMINE: 07/18/24-1202 ? SUBM DR: Ramesh Gurrola MD ? ENTERED: ??07/19/24 ?SP TYPE: Surgical ? OTHR DR: Pretty Molina MD ? ORDERED: ??HE Stain/2, Gross Micro L4 ? Diagnosis ?? Endometrium, biopsy: ?- Few strips of benign endometrium. ?- Few strips and fragments of benign endocervical and squamous epithelium; ?? mucoinflammatory material. ?- No atypia identified. ? Comment: The endometrial sampling is sparse; consider repeat, as clinically appropriate. ?Clinical History Thickened endometrium ?Microscopic Description Microscopic sections reviewed. ? Material Received ?? EMB ? Gross Description Received in formalin labeled ?EMB? is a 2.0 x 1.8 x 0.8 cm aggregate of cloudy cao-white and ordonez-brown mucus and shards of ordonez tissue, submitted in toto in a cassette labeled A. CEDS Copies To: ?? Pretty Molina MD ?? [facility] ?? [address] ?? [place] [address] ?? [phone] ?? Ramesh Gurrola MD ?? [facility] ?? [address] ?? [place] [address] ?? [phone] ? CONTINUED ON NEXT PAGE ----- ------- Name: Violet Pascal ? Age/Sex: 64/F ? : 1960 Unit#: [id number] ?? Attend Dr: Ramesh Gurrola MD ?Re07/18/24 ?Status: DEP REF ? Location: HO.LNP ?Disch: ? ----- ------- SPEC : [id number] ?RECD: 07/19/24 ? STATUS: ??SOUT ? REQ NUM: [id number] ? YASMINE: 07/18/24-1201 ? SUBM DR: Ramesh Gurrola MD ? ENTERED: ??07/19/24 ?SP TYPE: Surgical ? OTHR : Pretty Molina MD ? ORDERED: ??HE Stain/2, Gross Micro L4 ? ----- ------- Signed (signature on file) Wally Harding MD 07/20/24 1143 ? ----- ------- ? END OF REPORT ? Generic External Data Provider LAB BLOOD ORDERAB LES Final Result Performing Organization Address City/State/[facility] Co de Phone Number [facility] [address] [place] [phone] * POCT Glucose (06/11/2024 1:58 PM EST) [...] Urine Drug Screen (06/05/2024 10:01 AM EST) Pathologist [facility] Oxycodone Screen, Urine Positive Urine Urine specimen obtained by clean catch procedure / Unknown 06/05/2024 10:01 AM EST Narrative Sandra Boyd RN - 06/05/2024 10:01 AM EST UTOX cup Lot#[id number] Exp. 03/07/26 Internal Pass Control Pretty Zayas MD POINT OF CARE TEST EN TER/EDIT ORDERABLES Final Result * CT Chest w/o Contrast (04/24/2024 9:30 PM EST) Anatomical Region Laterality Modality Body, Chest Computed Tomogra phy 04/24/2024 9:30 PM EST Narrative 04/24/2024 11:17 PM EST ? [facility] ?[address] ?[place] [address] ? CT Scan Report ? Signed ? Patient: Pascal,Frerianavinda ?MR#: [id number] ?? [id number] ? : 1960 ?Acct:[id number] ? Age/Sex: 64 / F ?ADM Date: 04/24/24 ? Loc: HO.ED ? Attending Dr: ? Ordering Physician: Ashlie Rust CNP ?? Date of Service: 04/24/24 ?? Procedure(s): CT chest wo IV con ?? Accession Number(s): [id number] ? cc: Pretty Molina MD; Ashlie Rust [...] MD in OV> ?04/24/24 2313 ? DD/ ? TD/TT: 04/24/242144 ? Plant Chief: BA ? Procedure Note Karolyn, Image - 04/24/[address] [place] [address] [address] Scan Report Signed Patient: Abraham Pascal#: [id number] : 1960cct:[id number] Age/Sex: 64 / FADM Date: 04/24/24 Loc: HO.ED Attending Dr: Ordering Physician: Ashlie Rust CNP Date of Service: 04/24/24 Procedure(s): CT chest wo IV con Accession Number(s): [id number] cc: Pretty Molina MD; Ashlie Rust CNP [...] OV> 04/24/24 2313 DD/ 29 TD/TT: 04/24/242144 Plant Chief: BREANNA [facility] External Provider IMG CT PROCEDURES Edited Result - Final * Influenza B (ID NOW Rapid Molecular) (04/19/2024 2:56 PM EST) Influenza B Negative Negative, Indeterminate [facility] Swab 04/19/2024 2:56 PM EST Lorena Wilson NP POINT OF CARE TEST ENTER/EDIT O RDERABLES Final Result [facility] [address] [place] [phone] [phone] * Influenza A (ID NOW Rapid Molecular) (04/19/2024 2:56 PM EST) [facility] Influenza A Negative Negative, Indeterminate [facility] Swab 04/19/2024 2:56 PM EST Lorena Wilson NP POINT OF CARE TEST ENTER/EDIT O RDERABLES Final Result [facility] [address] [place] [address] [phone] * POCT Rapid COVID Ag (04/19/2024 2:56 PM EST) [facility] Rapid COVID Ag Negative Swab 04/19/2024 2:56 PM EST Lorena Wilson NP POINT OF CARE TEST ENTER/EDIT O RDERABLES Final Result * (ABNORMAL) POCT HGB A1C (04/05/2024 3:05 PM EDT) [facility] Hemoglobin A1C 6.9(A) 4.0 - 6.0 % QC Media Lot # [id number] Lot# Expiration Date [id number] Blood 04/05/2024 3:05 PM EDT Pretty Zayas MD POINT OF CARE TEST EN TER/EDIT ORDERABLES Final Result * Lipid Panel with Reflex to Direct LDL (01/10/2024 8:26 AM EDT) [facility] Triglycerides 140 <150 mg/dL [facility] Comment:Desirable Triglyceri de: less than 150 mg/dLBorderline High Triglyceride 150-199 mg/dLHigh Triglyceride: 200-499 mg/dLVery High Triglyceride: greater than or equal to 5OO mg/dL Cholesterol 155 <200 mg/dL [facility] Comment:Desirable Cholestero l: less than 200 mg/dLBorderline High Cholesterol: 200-239 mg/dLHigh Cholesterol: greater than 239 mg/dL LDL Cholesterol Calculated 80 <100 mg/dL [facility] Comment:Desirable LDL: less than 100 mg/dLNear Optimal/Above Optimal LDL: 110- 129 mg/dLBorderline High LDL: 130-159 mg/dLHigh LDL: 160-189 mg/dLVery High LDL: greater than or equal to 190 mg/dL HDL Cholesterol 47 >40 mg/dL [facility] Comment:Desirable HDL: great er than 40 mg/dL Note: This HDL assay may give artificially low results in patients with liver disease. Blood 01/10/2024 8:26 AM EDT 01/10/2024 11:20 AM EDT Pretty Zayas MD LAB BLOOD ORDERABLES Final Result [facility] [address] [place] [phone] * HPV mRNA E6/E7 w/Reflex to HPV Genotypes 16, 18/45 (04/18/2023 2:08 PM EST) HPV nRNA E6/E7 Not Detected Not Detected [facility] Comment:Methodology: Transcr iption-Mediated AmplificationThis assay detects E6/E7 viral messenger RNA (mRNA) from 14high-risk HPV types (16,18,31,33,35,39,45,51,52,56,58,59,66,68).Cervical sources are required for HPV testing.If a vaginal source from a patient who has had atotal hysterectomy with removal of cervix wassubmitted, please contact the testing laboratoryfor alternative testing options.For additional information, please refer [email or web address](This link if provided for information/educational purposes only.)THIS TEST WAS PERFORMED AT:[employer] [place] [phone] ANNE MD HPV mRNA E6/E7 [facility] HPV 16 RNA TNP [facility] HPV 18/45 RNA TNP [facility] 04/18/2023 2:08 PM EST 04/19/2023 8:20 AM EST Cristian Briones CNM LAB CYTOLOGY ORDERABLES F inal Result [facility] [address] [place] [phone] * Pap Smear (04/18/2023 2:08 PM EST) 04/18/2023 2:08 PM EST 04/19/2023 8:20 AM EST Narrative [facility] - 04/26/2023 1:40 PM EST ----- ------- Name: Violet Pascal ? Age/Sex: 63/F ? : 1960 Unit#: [id number] ?? Attend Dr: CRISTIAN BRIONES CNM ?Re04/18/23 ?Status: DEP REF ? Location: HO.HHCLNP ? Disch: ? ----- ------- SPEC : [id number] ?RECD: 04/19/23 ? STATUS: ??SOUT ? REQ NUM: [id number] ? YASMINE: 04/18/23 ? SUBM DR: CRISTIAN [...] 66, 68) ?? HPV testing performed by [employer], [place], [place]. ??See reference laboratory ?? pion of the EMR for entire report. ?Clinical Information LMP: Postmenopausal Previous PAP test: Unknown date/findings ? Material Received ?? ThinPrep-Cervical ----- ------- Signed (signature on file) MARIOLA Walker ([facility]) 04/26/23 1340 ? ----- ------- ? END OF REPORT ? us Cristian Briones [facility] CYTOLOGY ORDERABLES F inal Result [facility] [address] [place] [phone] * BI Mammogram Screening Tomosynthesis Bilateral (03/16/2023 3:02 PM EDT) Anatomical Region Laterality Modality Breast Bilateral Mammography 03/16/2023 3:02 PM EDT Narrative 04/06/2023 11:34 PM EDT ? [facility] ? [address] [facility] ?[place] [address] ? Mammography Report ? Signed ? Patient: Pascal,Fredevinda ?MR#: [id number] ?? [id number] ? : 1960 ?Acct:[id number] ? Age/Sex: 63 / F ?ADM Date: 10/04/23 ? Loc: HO.MAMMO ? Attending Dr: Pretty Zayas MD ? Ordering Physician: Pretty Molina MD ?Results: ?? 2Benign Findings ? Date of Service: 03/16/23 ?Follow Up: 1 Year From Orig ?? inal Mammogram ? Procedure(s): MM tomosynthesis screening BI ?? Accession Number(s): [id number] ? cc: Pretty Molina MD ? EXAMINATION: [...] by Kimberlyn Anderson MD in OV> ? 04/06/ 2304 ? DD/ 1502 ? TD/TT: ? Plant Chief: ? Procedure Note Donotuseinterpreter, Image - 04/06/2023 [place] [facility] [address] [place] [address] Mammography Report Signed Patient: Abraham Pascal#: [id number] : 1Acct:[id number] Age/Sex: 63 / FADM Date: 03/16/23 Loc: HO.MAMMO Attending Dr: Pretty Zayas MD Ordering Physician: Pretty Molina MDResults: 2Benign Findings Date of Service: 03/16/23Follow Up: 1 Year From Orig inal Mammogram Procedure(s): MM tomosynthesis screening BI Accession Number(s): [id number] cc: Pretty Molina MD EXAMINATION: MM SCREENING [...] in OV> 04/06/23 2304 DD/ 1502 TD/TT: Plant Chief: us Pretty Zayas MD IMG BI PROCEDURES Fadi tiara Result - Final * Hepatitis C Antibody (02/03/2021 12:01 PM EDT) Hepatitis C Antibody Nonreactive Nonreactive [facility] Comment: Antibodies to HCV not detected; does not exclude early acute HCV infection. HIV AB/AG Nonreactive Nonreactive [facility] Comment: HIV-1 p24 Ag and/or [...] detection of this assay. ?? The [employer] Line Tester HIV Ag/Ab Combo assay result and supplemental assay results should be interpreted in conjunction with the patient's clinical presentation, history and other laboratory results. ??If the results are inconsistent with clinical evidence, additional testing is suggested to confirm the result. Hepatitis B Surface Antigen Negative Negative [facility] 02/03/2021 12:0 1 PM EDT us Ramesh Gurrola MD HISTORICAL/NON ORDERABLE LABS Fi nal Result [facility] [address] [place] [address], from Last 3 Months or Most Recently Relevant to Health Maintenance Insurance [facility] C3 Care Teams Entry Level Account Executive Relationship Specialty Start Date End Date Pretty Molina MD [address] [place] [address] PCP - General Family Medicine 12/24/20
--- OUTSIDE RECORDS SUMMARY | 2024-07-20 12:43 | XMS_ITS | Encounter Summary ---
Author Organization [employer] Address [address] [facility] 7t [place] [address] Care Team Providers Care Pinball Machine Repairer Name Role Phone Pretty Molina MD Primary Care Provide r Reason for Visit * Reason Comments Med Refill Encounter Details Date Type Department Care Team (Late st Contact Info) Description 05/10/2023 Refill [facility] [address] [place], [place] [phone] Pretty Molina MD [address] [place], [place] [phone] Other chronic pain Social History Tobacco Use [...] PM EST Medication Management [facility] [address] [place] [phone] Guero Burns, PharmD [address] [place] [phone] 10/04/2024 1:00 PM EDT Clinical Support [address] [address] Sandra Boyd, RN documented as of this encounter Visit Diagnoses Diagnosis Other chronic pain documented in this encounter Additional Health Concerns Assessment Noted Time PHQ-9 Depression Total Score: 12 023 3:08 PM EDT documented as of this encounter Care Teams Pinball Machine Repairer Relationship Specialty Start Date End Date Pretty Molina MD [address] [place] [phone] PCP - General Family Medicine 12/24/20 documented as of this encounter
--- OUTSIDE RECORDS SUMMARY | 2024-07-20 12:43 | XMS_ITS | Encounter Summary ---
Author Organization [employer] Address [address] [facility] 7t [place] [address] Care Team Providers Care Medical Transcription Editor Name Role Phone Pretty Molina MD Primary Care Provide r Reason for Visit * Reason Comments Med Refill Encounter Details Date Type Department Care Team (Late st Contact Info) Description 07/01/2024 Refill [facility] [address] [place] [address] Keysha Nagel, ERIC [address] [place] [address] Social History Tobacco Use Types Packs/Day Years [...] 07/23/2024 1:00 PM EST Medication Management [address] [address] Guero Burns, PharmD [address] [place] [phone] 10/04/2024 1:00 PM EDT Clinical Support [address] [address] Sandra Boyd, RN documented as of this encounter Visit Diagnoses Not on filedocumented in this encounter Additional Health Concerns Assessment Noted Time PHQ-9 Depression Total Score: 4 01/06/20 24 2:22 PM EDT documented as of this encounter Care Teams Medical Transcription Editor Relationship Specialty Start Date End Date Pretty Molina MD [address] [place] [phone] PCP - General Family Medicine 12/24/20 documented as of this encounter
--- OUTSIDE RECORDS SUMMARY | 2024-07-20 12:43 | XMS_ITS | Encounter Summary ---
Author Organization [employer] Address [address] [facility] 7t [place] [address] Care Team Providers Care Transit Mechanic Name Role Phone Pretty Molina MD Primary Care Provide r Reason for Visit * Reason Comments Med Refill Encounter Details Date Type Department Care Team (Late Contact Info) Description 12/27/2022 Refill [facility] MEDICINE [address] [place] [address] Jocelyn Bender DO 230 [place] [address] Seasonal allergic rhinitis, unspecified trigger Social History [...] Description 07/23/2024 1:00 PM EST Medication Management [address] [address] Guero Burns, PoloD 230 [place] [address] 10/04/2024 1:00 PM EDT Clinical Support [address] [address] Sandra Boyd RN documented as of this encounter Visit Diagnoses Diagnosis Seasonal allergic rhinitis, unspecified trigger documented in this encounter Additional Health Concerns Assessment Noted Time PHQ-9 Depression Total Score: 12 11/24/ 023 3:08 PM EDT documented as of this encounter Care Teams Transit Mechanic Relationship Specialty Start Date End Date Pretty Molina MD [address] [place] [address] PCP - General Family Medicine 12/24/20 documented as of this encounter
--- OUTSIDE RECORDS SUMMARY | 2024-07-20 12:43 | XMS_ITS | Encounter Summary ---
Author Organization [employer] Address 75 [facility] 7t [place] [address] Care Team Providers Care Stone Sawyer Name Role Phone Pretty Molina MD Primary Care Provide r Reason for Visit * Reason Comments Med Refill Encounter Details Date Type Department Care Team (Late st Contact Info) Description 02/28/2023 Refill [facility] MEDICINE 230 [place], [place] [phone] Pretty Molina MD 230 [place], [place] [phone] Social History Tobacco Use Types Packs/Day Years [...] Description 07/23/2024 1:00 PM EST Medication Management [facility] MED[facility] 230 [place] [address] Guero Burns, PharmD 230 [place], [place] [phone] 10/04/2024 1:00 PM EDT Clinical Support [facility] [address] [place] [address] Sandra Boyd RN documented as of this encounter Visit Diagnoses Not on filedocumented in this encounter Additional Health Concerns Assessment Noted Time PHQ-9 Depression Total Score: 12 11/24/ 023 3:08 PM EDT documented as of this encounter Care Teams Stone Sawyer Relationship Specialty Start Date End Date Pretty Molina MD 230 [place] [address] PCP - General Family Medicine 12/24/20 documented as of this encounter
--- OUTSIDE RECORDS SUMMARY | 2024-07-20 12:43 | XMS_ITS | Encounter Summary ---
Author Organization [employer] Address 75 [facility] 7t [place] [address] Care Team Providers Care Pitch Flaker Name Role Phone Pretty Molina MD Primary Care Provide r Encounter Details Date Type Department Care Team (Latest Contact Info) Description 04/21/2020 Abstract [facility] CONVERSIONS Dental, Provider, DDS Social History [...] Description 07/23/2024 1:00 PM EST Medication Management [facility] MEDICINE [address] [place] [address] Guero Burns, PoloD 230 [place] [address] 10/04/2024 1:00 PM EDT Clinical Support [facility] MEDICINE [address] [place] [address] Sandra Boyd, RN documented as of this encounter Visit Diagnoses Not on filedocumented in this encounter Care Teams Pitch Flaker Relationship Specialty Start Date End Date Pretty Molina MD 230 [place] [address] PCP - General Family Medicine 12/24/20 documented as of this encounter
--- OUTSIDE RECORDS SUMMARY | 2024-07-20 12:44 | XMS_ITS | Encounter Summary ---
Author Organization [employer] Address 75 [facility] 7t [place] [address] Care Team Providers Care Hvac Refrigeration Technician Name Role Phone Pretty Molina MD Primary Care Provide r Reason for Visit * Reason Onset Date Comments Nurse Triage 04/26/2024 Encounter Details Date Type Department Care Team ([facility] st Contact Info) Description 04/26/2024 Telephone [facility] MEDICINE 230 [place] [address] Pretty Molina MD 230 [place] [address] Nurse Triage Social History Tobacco Use Types [...] 12:18 PM EST Please obtain note from [facility] [place] 04/24/24, Upcoming appt with PCP tomorrow at 11am. * Telephone Encounter - Valeria Hooper LPN - 04/26/2024 11:58 AM EST Triage call returned with BLS #[id number] Yonathan. Patient reports that she was seen on 04/19/24. Patient is reporting following her Flu shot she has been feeling delicate . Chart shows Flu given in March. Call dropped. Return call with Shot Hole Shooter Neto [phone]. Patient reports seen at [facility] and not improved with cough and congestion. Has no reported fever. Patient then reports presented to [facility] on 04/24/24 and was given scan [...] caller accepted this outcome. Contact pt at [phone] documented in this encounter Plan of Treatment Upcoming Encounters Date Type Department Care Team (Late st Contact Info) Description 07/23/2024 1:00 PM EST Medication Management [address] [address] Guero Burns, PharmD [address] [place] [address] 10/04/2024 1:00 PM EDT Clinical Support [address] [address] Sandra Boyd, TONY documented as of this encounter Visit Diagnoses Not on filedocumented in this encounter Additional Health Concerns Assessment Noted Time PHQ-9 Depression Total Score: 4 01/06/20 24 2:22 PM EDT documented as of this encounter Care Teams Hvac Refrigeration Technician Relationship Specialty Start Date End Date Pretty Molina MD [address] [place] [address] PCP - General Family Medicine 12/24/20 documented as of this encounter
--- OUTSIDE RECORDS SUMMARY | 2024-07-20 12:44 | XMS_ITS | Encounter Summary ---
Author Organization [employer] Address 75 [facility] 7t [place] [address] Care Team Providers Care Programming Director Name Role Phone Pretty Molina MD Primary Care Provide r Reason for Visit * Reason Comments Med Refill Encounter Details Date Type Department Care Team (Late st Contact Info) Description 12/06/2023 Refill [facility] MEDICINE 230 [place], [place] [phone] Pretty Molina MD 230 [place], [place] [phone] Other chronic pain Social History Tobacco Use [...] Description 07/23/2024 1:00 PM EST Medication Management [address] [address] Guero Burns, PharmD [address] [place] [address] 10/04/2024 1:00 PM EDT Clinical Support [address] [address] Sandra Boyd, TONY documented as of this encounter Visit Diagnoses Diagnosis Other chronic pain documented in this encounter Additional Health Concerns Assessment Noted Time PHQ-9 Depression Total Score: 12 023 3:08 PM EDT documented as of this encounter Care Teams Programming Director Relationship Specialty Start Date End Date Pretty Molina MD [address] [place] [address] PCP - General Family Medicine 12/24/20 documented as of this encounter
--- OUTSIDE RECORDS SUMMARY | 2024-07-20 12:44 | XMS_ITS | Encounter Summary ---
Author Organization [employer] Address 75 [facility] 7t [place] [address] Care Team Providers Care Electrical And Instrumentation Mechanic Name Role Phone Pretty Molina MD Primary Care Provide r Reason for Visit * Reason Comments Med Refill Encounter Details Date Type Department Care Team (Late st Contact Info) Description 07/19/2024 Refill [facility] MEDICINE 230 [place] [address] Pretty Molina MD 230 [place] [address] Social History Tobacco Use Types Packs/Day Years [...] Description 07/23/2024 1:00 PM EST Medication Management [facility] MEDICINE [address] [place] [address] Guero Burns, PharmD [address] [place] [address] 10/04/2024 1:00 PM EDT Clinical Support [address] [address] Sandra Boyd, RN documented as of this encounter Visit Diagnoses Not on filedocumented in this encounter Additional Health Concerns Assessment Noted Time PHQ-9 Depression Total Score: 4 01/06/20 24 2:22 PM EDT documented as of this encounter Care Teams Electrical And Instrumentation Mechanic Relationship Specialty Start Date End Date Pretty Molina MD [address] [place] [phone] PCP - General Family Medicine 12/24/20 documented as of this encounter
--- OUTSIDE RECORDS SUMMARY | 2024-07-20 12:44 | XMS_ITS | Encounter Summary ---
Author Organization [employer] Address 75 [facility] 7t [place] [address] Care Team Providers Care Dental Technician Name Role Phone Pretty Molina MD Primary Care Provide r Encounter Details Date Type Department Care Team (Late st Contact Info) Description 11/12/2022 Orders Only [facility] MED & PEDS [address] [place] [address] Jocelyn Fleming LPN Social History Tobacco Use [...] EST Medication Management [facility] MEDICINE [address] [place] [address] Guero Burns, PharmD 230 [place], [place] [phone] 10/04/2024 1:00 PM EDT Clinical Support [facility] MEDICINE 230 [place], [place] [phone] Sandra Boyd RN documented as of this encounter Visit Diagnoses Not on filedocumented in this encounter Care Teams Dental Technician Relationship Specialty Start Date End Date Pretty Molina MD 230 [place] [address] PCP - General Family Medicine 12/24/20 documented as of this encounter
--- OUTSIDE RECORDS SUMMARY | 2024-07-20 12:44 | XMS_ITS | Encounter Summary ---
Author Organization [employer] Address 75 [facility] 7t [place] [address] Care Team Providers Care Adjuster Arbitrator Name Role Phone Pretty Molina MD Primary Care Provide r Encounter Details Date Type Department Care Team (Late st Contact Info) Description 07/18/2024 Orders Only GENERIC EXTERNAL DATA DEPARTMENT Provider, Generic External Data Social History Tobacco Use Types Packs/Day Years [...] Description 07/23/2024 1:00 PM EST Medication Management [address] [address] Guero Burns, PharmD [address] [place] [address] 10/04/2024 1:00 PM EDT Clinical Support [address] [address] Sandra Boyd, TONY documented as of this encounter Procedures Procedure Name Priority Date/Time Associated Diagnosis Comments HEMATOXYLIN AND EOSIN STAIN Routine 07/18/2024 12:02 PM EST documented in this encounter Results * Hematoxylin and Eosin Stain (07/18/2024 12:02 PM EST) 07/18/2024 12:0 2 PM EST 07/19/2024 7:32 AM EST [facility] - 07/20/2024 11:43 AM EST ----- ------- Name: Violet Pascal ? Age/Sex: 64/F ? : 1960 Unit#: [id number] ?? Attend Dr: Ramesh Gurrola MD ?Re07/18/24 ?Status: DEP REF ? Location: HO.LNP ?Disch: ? ----- ------- SPEC : [id number] ?RECD: 07/19/24 ? STATUS: ??SOUT ? REQ NUM: [id number] ? YASMINE: 07/18/24 ? SUBM DR: Ramesh Gurrola MD ? [...] 0.8 cm aggregate of cloudy cao-white and orodnez-brown mucus and shards of ordonez tissue, submitted in toto in a cassette labeled A. CEDS Copies To: ?? Pretty Molina MD ?? [facility] ?? [address] ?? [place] [address] ?? [phone] ?? Ramesh Gurrola MD ?? [facility] ?? [address] [facility] [address] ?? [place] [address] ?? [phone] ? CONTINUED ON NEXT PAGE ----- ------- Name: iVolet Pascal ? Age/Sex: 64/F ? : 1960 Unit#: [id number] ?? Attend Dr: Ramesh Gurrola MD ?Re07/18/24 ?Status: DEP REF ? Location: HO.LNP ?Disch: ? ----- ------- SPEC : [id number] ?RECD: 07/19/24 ? STATUS: ??SOUT ? REQ NUM: [id number] ? YASMINE: 07/18/24-2 ? SUBM DR: Ramesh Gurrola MD ? ENTERED: ??07/19/24 ?SP TYPE: Surgical ? OTHR : Pretty Molina MD ? ORDERED: ??HE Stain/2, Gross Micro L4 ? ----- ------- Signed (signature on file) Wally Harding MD 07/20/24 1143 ? ----- ------- ? END OF REPORT ? us Generic External Data Provider LAB BLOOD ORDERAB LES Final Result [facility] [address] [place] [address] [phone] documented in this encounter Visit Diagnoses Not on filedocumented in this encounter Additional Health Concerns Assessment Noted Time PHQ-9 Depression Total Score: 4 01/06/20 24 2:22 PM EDT documented as of this encounter Care Teams Adjuster Arbitrator Relationship Specialty Start Date End Date Pretty Molina MD [address] [place] [address] PCP - General Family Medicine 12/24/20 documented as of this encounter
--- OUTSIDE RECORDS SUMMARY | 2024-07-20 12:44 | XMS_ITS | Encounter Summary ---
Author Organization [employer] Address 75 [facility] 7t [place] [address] Care Team Providers Care Loop Machine Operator Name Role Phone Pretty Molina MD Primary Care Provide r Reason for Visit * Reason Comments Med Refill Encounter Details Date Type Department Care Team (Late st Contact Info) Description 04/15/2024 Refill [facility] [address] [place] [address] Pretty Molina MD 230 [place] [address] Social History Tobacco Use Types Packs/Day Years [...] Description 07/23/2024 1:00 PM EST Medication Management [address] [address] Guero Burns, PharmD [address] [place] [address] 10/04/2024 1:00 PM EDT Clinical Support [address] [address] Sandar Boyd, RN documented as of this encounter Visit Diagnoses Not on filedocumented in this encounter Additional Health Concerns Assessment Noted Time PHQ-9 Depression Total Score: 4 01/06/20 24 2:22 PM EDT documented as of this encounter Care Teams Loop Machine Operator Relationship Specialty Start Date End Date Pretty Molina MD [address] [place] [address] PCP - General Family Medicine 12/24/20 documented as of this encounter
--- OUTSIDE RECORDS SUMMARY | 2024-07-20 12:44 | XMS_ITS | Encounter Summary ---
Author Organization [employer] Address 75 [facility] 7t [place] [address] Care Team Providers Care Gaming Floor Supervisor Name Role Phone Pretty Molina MD Primary Care Provide r Reason for Visit * Reason Comments Med Refill Encounter Details Date Type Department Care Team (Late st Contact Info) Description 04/05/2024 Refill [facility] MEDICINE [address] [place], [place] [phone] Pretty Molina MD 230 [place] [address] Other chronic pain Social History Tobacco Use [...] Description 07/23/2024 1:00 PM EST Medication Management [address] [address] Guero Burns, PharmD [address] [place] [address] 10/04/2024 1:00 PM EDT Clinical Support [address] [address] Sandra Boyd, RN documented as of this encounter Visit Diagnoses Diagnosis Other chronic pain documented in this encounter Additional Health Concerns Assessment Noted Time PHQ-9 Depression Total Score: 4 01/06/20 24 2:22 PM EDT documented as of this encounter Care Teams Gaming Floor Supervisor Relationship Specialty Start Date End Date Pretty Molina MD [address] [place] [address] PCP - General Family Medicine 12/24/20 documented as of this encounter
--- OUTSIDE RECORDS SUMMARY | 2024-07-20 12:44 | XMS_ITS | Encounter Summary ---
Author Organization [employer] Address 75 [facility] 7t [place] [address] Care Team Providers Care Independent Freight Agent Name Role Phone Pretty Molina MD Primary Care Provide r Reason for Visit * Reason Comments Med Refill Encounter Details Date Type Department Care Team (Late st Contact Info) Description 04/21/2024 Refill [facility] MEDICINE [address] [place], [place] [phone] Pretty Molina MD [address] [place] [address] Neuropathy Social History Tobacco Use Types Packs/Day [...] Description 07/23/2024 1:00 PM EST Medication Management [address] [address] Guero Burns, PharmD [address] [place] [address] 10/04/2024 1:00 PM EDT Clinical Support [address] [address] Sandra Boyd, RN documented as of this encounter Visit Diagnoses Diagnosis Neuropathy Mononeuritis of unspecified site documented in this encounter Additional Health Concerns Assessment Noted Time PHQ-9 Depression Total Score: 4 01/06/20 24 2:22 PM EDT documented as of this encounter Care Teams Independent Freight Agent Relationship Specialty Start Date End Date Pretty Molina MD [address] [place] [address] PCP - General Family Medicine 12/24/20 documented as of this encounter
--- OUTSIDE RECORDS SUMMARY | 2024-07-20 12:44 | XMS_ITS | Encounter Summary ---
Author Organization [employer] Address 75 [facility] 7t [place] [address] Care Team Providers Care Senior Controller Name Role Phone Pretty Molina MD Primary Care Provide r Reason for Visit * Reason Comments Med Refill Encounter Details Date Type Department Care Team (Late st Contact Info) Description 11/24/2022 Refill [facility] DENTAL [address] [place] [address] Eliezer Richardson DDS [address] [place] [address] Social History Tobacco Use Types Packs/Day Years [...] 07/23/2024 1:00 PM EST Medication Management [address] [address] Guero Burns, PoloD [address] [place] [address] 10/04/2024 1:00 PM EDT Clinical Support [address] [address] Sandra Boyd RN documented as of this encounter Visit Diagnoses Not on filedocumented in this encounter Additional Health Concerns Assessment Noted Time PHQ-9 Depression Total Score: 12 023 3:08 PM EDT documented as of this encounter Care Teams Senior Controller Relationship Specialty Start Date End Date Pretty Molina MD [address] [place] [address] PCP - General Family Medicine 12/24/20 documented as of this encounter
[2024-07-20 13:17] LABS: Anion Gap 14 (12-20); Blood Urea Nitrogen 18 mg/dL (9-16); Calcium 9.4 mg/dL (8.4-10.2); Carbon Dioxide 24 mmol/L (22-29); Chloride 103 mmol/L (96-108); Estimated Glomerular Filt Rate > 60; Glucose Random 156 mg/dL (60-115); Potassium 4.2 mmol/L (3.3-5.1); Sodium 137 mmol/L (135-145)
== END 2024-07-20 11:41 | disposition home or self-care (01) ==
LOC: HO.US 11:40
PROVIDERS: Absent Provider Internal Medicine; PCP Internal Medicine; Visit Provider Obstetrics & Gynecology
DX: I42.2 Other hypertrophic cardiomyopathy (principal); D25.9 Leiomyoma of uterus, unspecified
CPT/HCPCS: 36415; 76830; 76856; 80048

== ENCOUNTER → 2024-07-20 12:32 | Outpatient (BNV) | payer MEDICAID, SELFPAY | PROVIDERS: Absent Provider Internal Medicine; PCP Internal Medicine; Visit Provider Specialist | DX: D25.9 Leiomyoma of uterus, unspecified (principal) | CPT/HCPCS: 76830 ==

== ENCOUNTER 2024-07-23 14:12 | Outpatient (AMB) | payer MEDICAID, SELFPAY ==
--- NOTE | 2024-07-23 14:59 | MHC.OFFVIS ---
Vital Signs 07/23/24 15:00 Height 5 ft 2 in Weight 211 lb BMI 38.6 Intake Visit Reasons: EMB Results/? hysteroscopy Nursing Assistants Teacher Required: Yes Nursing Assistants Teacher Language: Photocopier Technician Services: Nursing Assistants Teacher Present (in person) Nursing Assistants Teacher Name: Kandice HUMPHREY Information Interpreted: non-clinical & clinical Saw Superintendent: Saw Superintendent Present Accompanied by: Self / Same As Patient Allergies morphine [MORPHINE] Allergy (Unknown, Verified 07/18/24 11:38) UNKNOWN Is last menstrual period known: Yes Last menstrual period: 04/10/20 Post menopausal: No Patient : No Do you need a note to return to daycare/school/sports/work: Yes (for surgery on tuesday) HPI Comments Details: The patient is presenting after endometrial biopsy. The patient has no complaints, no vaginal bleeding, no feverishness chills or abdominal pain. The endometrial biopsy pathology report showed the following: Endometrium, biopsy: - Few strips of benign endometrium. - Few strips and fragments of benign endocervical and squamous epithelium; mucoinflammatory material. - No atypia identified. Comment: The endometrial sampling is sparse; consider repeat, as clinically appropriate [facility] Medical History Asymmetric septal hypertrophy Heart block atrioventricular Chronic pain Depression Vascular insufficiency Lichen Hip pain Foot pain Foot callus Cubital tunnel syndrome Chronic vulvovaginitis Carpal tunnel syndrome Burn scar contracture of upper arm Blurring of visual image Mood disorder Hyperlipidemia Renal cyst Hematuria of unknown cause Smoker Arthritis Back pain Diabetes GERD (gastroesophageal reflux disease) Fibromyalgia Anxiety and depression MARK on CPAP Chronic sinusitis Asthma Elevated cholesterol HTN (hypertension) Surgical History Hx of cystoscopy S/P lumpectomy of breast (04/20/21) Hx of colonoscopy Hx of dilation and curettage H/O tubal ligation History of skin graft Family History Father No problems noted. Mother No problems noted. 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 Female Reproductive History Menstrual Age of Menarche: 14 Date of last menstrual period: 04/10/20 Total pregnancies: 2 Full term: 2 Review of Systems Card Reports as per HPI and Reports no additional complaints Resp Reports as per HPI and Reports no additional complaints GI Reports as per HPI and Reports no additional complaints Reports as per HPI Physical Exam Vital Signs: BMI result Body Mass Index 38.6 Const General: cooperative, healthy appearing and comfortable Resp Effort & Inspection: normal respiratory effort Auscultation: clear to auscultation bilaterally Percussion: percussion normal Cardio Palpation: normal PMI Rate: regular rate Rhythm: regular rhythm Heart sounds: no murmurs and no rubs Peripheral pulses: Peripheral pulses 2+ throughout GI Inspection: Yes normal to inspection Palpation (GI): Soft to palpation, nontender, no guarding, not rigid and No hepatosplenomegaly present Percussion: Yes normal to percussion Auscultation: normal bowel sounds Rectal Exam - Female: deferred Assessment & Plan Assessment & Plan (1) Thickened endometrium: Code(s): R93.89 - Abnormal findings on diagnostic imaging of other specified body structures Category: Medical Plan: Discussed with the patient the results the pathology, the fact that the tissue is sparse and did not rule out endometrial pathology with high accuracy given the amount of tissue samples. Recommended to the patient that the next step is an endometrial sampling via hysteroscopy D&C possible polypectomy versus endometrial biopsy to r/o endometrial pathology including hyperplasia or cancer. All the pros and cons risks and benefits of each approach were discussed with the patient, endometrial biopsy being less invasive, office procedure with less sensitivity and inability diagnose a polyp and removal versus hysteroscopy done under anesthesia more invasive more sensitive to endometrial cancer and possibility of diagnosing and endometrial polyp with the possibility of polypectomy. All questions were answered pt verbalized understanding and decided to proceed with hysteroscopy D&C possible polypectomy/myomectomy. Discussed with the patient the procedure , all benefits and risks including but not limited to inability to complete the procedure , insufficient endometrial tissue for a complete evaluation of the endometrial cavity , bleeding, infection, possible need for blood transfusion with all its risk ( HIV,syphilis, Hepatitis, anaphylaxis shock, others..), injury to bladder, rectum, possible need for laparoscopy/laparotomy or hysterectomy. The patient verbalized understanding and signed the consent. Instructions given the patient to: Stay NPO after midnight the day prior to the procedure To hold off Trulicity for 1 week prior to the procedure, Jardiance for 3 days prior to the procedure and to take only the following medications the morning of the procedure: Losartan, nifedipine ER, and carvedilol All other medications are not to be taken the morning of the procedure, a list of the medication that need to be held off for a week, for 3 days and does that need to be taken the morning of the procedure were given to the patient in writing. Instructions given the patient to schedule a 2 week postoperative appointment Coding Level of Care Code Est Pt Level 3 (32678) Diagnoses Thickened endometrium R93.89
[2024-07-23 15:00] VITALS: BMI 38.6
== END 2024-07-23 15:30 | disposition home or self-care (01) ==
LOC: HO.HWS 14:12
PROVIDERS: PCP Internal Medicine; Visit Provider Obstetrics & Gynecology
DX: R93.89 Abnormal findings on diagnostic imaging of other specified body structures (principal)
CPT/HCPCS: 99213

== ENCOUNTER → 2024-07-23 14:12 | Outpatient (BNVA) | payer MEDICAID, SELFPAY | PROVIDERS: PCP Internal Medicine; Visit Provider Obstetrics & Gynecology | DX: R93.89 Abnormal findings on diagnostic imaging of other specified body structures (principal) | CPT/HCPCS: 99212 ==

== ENCOUNTER 2024-07-25 14:04 | Outpatient (REF) | payer MEDICAID, SELFPAY ==
--- OUTSIDE RECORDS SUMMARY | 2024-07-25 15:27 | XMS_ITS | Encounter Summary ---
Author Organization [employer] Address [address] [facility] 7t [place] [address] Care Team Providers Care Youth Pastor Name Role Phone Pretty Molina MD Primary Care Provide r Reason for Visit * Reason Comments Med Refill Encounter Details Date Type Department Care Team (Late st Contact Info) Description 07/01/2024 Refill [facility] MEDICINE [address] [place] [address] Keysha Nagel, ERIC [address] [place] [address] Social History Tobacco Use Types Packs/Day Years [...] Care Team (Late st Contact Info) Description 10/04/2024 1:00 PM EDT Clinical Support [facility] MEDICINE [address] [place] [address] Sandra Boyd RN documented as of this encounter Visit Diagnoses Not on filedocumented in this encounter Additional Health Concerns Assessment Noted Time PHQ-9 Depression Total Score: 4 01/06/20 24 2:22 PM EDT documented as of this encounter Care Teams Youth Pastor Relationship Specialty Start Date End Date Pretty Molina MD [address] [place] [address] PCP - General Family Medicine 12/24/20 documented as of this encounter
--- OUTSIDE RECORDS SUMMARY | 2024-07-25 15:27 | XMS_ITS | Encounter Summary ---
Author Organization [employer] Address [address] [facility] 7t [place] [address] Care Team Providers Care Linen Clerk Name Role Phone Pretty Molina MD Primary Care Provide r Reason for Visit * Reason Comments Med Refill Encounter Details Date Type Department Care Team (Late st Contact Info) Description 06/25/2024 Refill [facility] [address] [place] [address] Pretty Molina MD [address] [place] [address] Primary hypertension Social History Tobacco Use Types [...] Description 10/04/2024 1:00 PM EDT Clinical Support [facility] MEDICINE [address] [place] [address] Sandra Boyd, TONY documented as of this encounter Visit Diagnoses Diagnosis Primary hypertension Unspecified essential hypertension documented in this encounter Additional Health Concerns Assessment Noted Time PHQ-9 Depression Total Score: 4 01/06/20 24 2:22 PM EDT documented as of this encounter Care Teams Linen Clerk Relationship Specialty Start Date End Date Pretty Molina MD [address] [place] [address] PCP - General Family Medicine 12/24/20 documented as of this encounter
--- OUTSIDE RECORDS SUMMARY | 2024-07-25 15:27 | XMS_ITS | Encounter Summary ---
Author Organization [employer] Address [address] [facility] 7t [place] [address] Care Team Providers Care Sign Writer Letterer Or Painter Name Role Phone Pretty Molina MD Primary Care Provide r Reason for Visit * Reason Onset Date Comments Med Refill 07/09/2024 Encounter Details Date Type Department Care Team (Late st Contact Info) Description 07/09/2024 Refill [facility] MEDICINE [address] [place] [address] Pretty Molina MD [address] [place] [address] Other chronic pain Social History Tobacco Use [...] 5-325 MG tablet To be sent to: [facility] - [place], [place] - [address] [place] [address] documented in this encounter Plan of Treatment Upcoming Encounters Date Type Department Care Team (Late st Contact Info) Description 10/04/2024 1:00 PM EDT Clinical Support [facility] MEDICINE [address] [place] [address] Sandra Boyd RN documented as of this encounter Visit Diagnoses Diagnosis Other chronic pain documented in this encounter Additional Health Concerns Assessment Noted Time PHQ-9 Depression Total Score: 4 01/06/20 24 2:22 PM EDT documented as of this encounter Care Teams Sign Writer Letterer Or Painter Relationship Specialty Start Date End Date Pretty Molina MD [address] [place] [address] PCP - General Family Medicine 12/24/20 documented as of this encounter
--- OUTSIDE RECORDS SUMMARY | 2024-07-25 15:27 | XMS_ITS | Encounter Summary ---
Author Organization [employer] Address [address] [facility] 7t [place] [address] Care Team Providers Care Client Services Director Name Role Phone Pretty Molina MD Primary Care Provide r Encounter Details Date Type Department Care Team ([facility] Contact Info) Description 09/01/2022 Orders Only [facility] MED & PEDS [address] [place] [address] Jocelyn Fleming LPN Social History Tobacco Use [...] Description 10/04/2024 1:00 PM EDT Clinical Support [facility] MEDICINE [address] [place] [address] Sandra Boyd RN documented as of this encounter Visit Diagnoses Not on filedocumented in this encounter Care Teams Client Services Director Relationship Specialty Start Date End Date Pretty Molina MD [address] [place] [address] PCP - General Family Medicine 12/24/20 documented as of this encounter
--- OUTSIDE RECORDS SUMMARY | 2024-07-25 15:27 | XMS_ITS | Encounter Summary ---
Author Organization [employer] Address [address] [facility] 7t [place] [address] Care Team Providers Care Wealth Management Director Name Role Phone Pretty Molina MD Primary Care Provide r Encounter Details Date Type Department Care Team (Late st Contact Info) Description 07/12/2022 Orders Only [facility] MED & PEDS [address] [place] [address] Jocelyn Fleming LPN Social History Tobacco Use [...] Description 10/04/2024 1:00 PM EDT Clinical Support [facility] MEDICINE [address] [place] [address] Sandra Boyd, RN documented as of this encounter Visit Diagnoses Not on filedocumented in this encounter Care Teams Wealth Management Director Relationship Specialty Start Date End Date Pretty Molina MD [address] [place] [address] PCP - General Family Medicine 12/24/20 documented as of this encounter
--- OUTSIDE RECORDS SUMMARY | 2024-07-25 15:27 | XMS_ITS | Encounter Summary ---
Author Organization [employer] Address [address] [facility] 7t [place] [address] Care Team Providers Care Survey Research Associate Name Role Phone Pretty Molina MD Primary Care Provide r Encounter Details Date Type Department Care Team (Late st Contact Info) Description 07/01/2022 Orders Only [facility] MEDICINE [address] [place] [address] Marti Cedillo RN Chronically on opiate therapy [...] 10/04/2024 1:00 PM EDT Clinical Support [facility] MEDICINE [address] [place] [phone] Sandra Boyd, TONY documented as of this encounter Visit Diagnoses Diagnosis Chronically on opiate therapy- Primary documented in this encounter Care Teams Survey Research Associate Relationship Specialty Start Date End Date Pretty Molina MD [address] [place] [address] PCP - General Family Medicine 12/24/20 documented as of this encounter
--- OUTSIDE RECORDS SUMMARY | 2024-07-25 15:28 | XMS_ITS | Encounter Summary ---
Author Organization [employer] Address [address] [facility] 7t [place] [address] Care Team Providers Care Client Renewal Specialist Name Role Phone Pretty Molina MD Primary Care Provide r Reason for Visit * Reason Comments Med Refill Encounter Details Date Type Department Care Team (Late st Contact Info) Description 07/05/2023 Refill [facility] MED & PEDS [address] [place], [place] [phone] Pretty Molina MD [address] [place] [address] Social History Tobacco Use Types Packs/Day Years [...] Description 10/04/2024 1:00 PM EDT Clinical Support [facility] MEDICINE [address] [place] [address] Sandra Boyd RN documented as of this encounter Visit Diagnoses Not on filedocumented in this encounter Additional Health Concerns Assessment Noted Time PHQ-9 Depression Total Score: 12 023 3:08 PM EDT documented as of this encounter Care Teams Client Renewal Specialist Relationship Specialty Start Date End Date Pretty Molina MD [address] [place] [address] PCP - General Family Medicine 12/24/20 documented as of this encounter
--- OUTSIDE RECORDS SUMMARY | 2024-07-25 15:28 | XMS_ITS | Encounter Summary ---
Author Organization [employer] Address [address] [facility] 7t [place] [address] Care Team Providers Care Etl Data Architect Name Role Phone Pretty Molina MD Primary Care Provide r Reason for Visit * Reason Comments Med Refill Encounter Details Date Type Department Care Team (Late st Contact Info) Description 07/18/2024 Refill [facility] MEDICINE [address] [place] [address] Pretty Molina MD [address] [place] [address] Dry eye syndrome of bilateral lacrimal glands [...] Description 10/04/2024 1:00 PM EDT Clinical Support [facility] MEDICINE [address] [place] [address] Sandra Boyd, TONY documented as of this encounter Visit Diagnoses Diagnosis Dry eye syndrome of bilateral lacrimal glands documented in this encounter Additional Health Concerns Assessment Noted Time PHQ-9 Depression Total Score: 4 01/06/20 24 2:22 PM EDT documented as of this encounter Care Teams Etl Data Architect Relationship Specialty Start Date End Date Pretty Molina MD [address] [place] [address] PCP - General Family Medicine 12/24/20 documented as of this encounter
--- OUTSIDE RECORDS SUMMARY | 2024-07-25 15:28 | XMS_ITS | Encounter Summary ---
Author Organization [employer] Address [address] [facility] 7t [place] [address] Care Team Providers Care Home Teaching Grades 9 Thru 12 Teacher Name Role Phone Pretty Molina MD Primary Care Provide r Reason for Visit * Reason Comments Med Refill Encounter Details Date Type Department Care Team (Late st Contact Info) Description 05/09/2023 Refill [facility] MEDICINE [address] [place], [place] [phone] Pretty Molina MD [address] [place], [place] [phone] Other chronic pain Social History Tobacco Use [...] Description 10/04/2024 1:00 PM EDT Clinical Support [facility] MEDICINE [address] [place] [address] Sandra Boyd RN documented as of this encounter Visit Diagnoses Diagnosis Other chronic pain documented in this encounter Additional Health Concerns Assessment Noted Time PHQ-9 Depression Total Score: 12 023 3:08 PM EDT documented as of this encounter Care Teams Home Teaching Grades 9 Thru 12 Teacher Relationship Specialty Start Date End Date Pretty Molina MD [address] [place] [address] PCP - General Family Medicine 12/24/20 documented as of this encounter
--- OUTSIDE RECORDS SUMMARY | 2024-07-25 15:28 | XMS_ITS | Encounter Summary ---
Author Organization [employer] Address [address] [facility] 7t [place] [address] Care Team Providers Care Insurance Processing Clerk Name Role Phone Pretty Molina MD Primary Care Provide r Reason for Visit * Reason Comments Med Refill Encounter Details Date Type Department Care Team (Late st Contact Info) Description 03/30/2023 Refill [facility] MEDICINE [address] [place], [place] [phone] Pretty Molina MD [address] [place] [address] Other chronic pain Social History Tobacco Use [...] Description 10/04/2024 1:00 PM EDT Clinical Support [facility] MEDICINE [address] [place] [address] Sandra Boyd RN documented as of this encounter Visit Diagnoses Diagnosis Other chronic pain documented in this encounter Additional Health Concerns Assessment Noted Time PHQ-9 Depression Total Score: 12 023 3:08 PM EDT documented as of this encounter Care Teams Insurance Processing Clerk Relationship Specialty Start Date End Date Pretty Molina MD [address] [place] [address] PCP - General Family Medicine 12/24/20 documented as of this encounter
--- OUTSIDE RECORDS SUMMARY | 2024-07-25 15:28 | XMS_ITS | Encounter Summary ---
Author Organization [employer] Address [address] [facility] 7t [place] [address] Care Team Providers Care Occupational Therapy Aide Name Role Phone Pretty Molina MD Primary Care Provide r Reason for Visit * Reason Comments Med Refill Encounter Details Date Type Department Care Team (Late st Contact Info) Description 06/11/2022 Refill [facility] MEDICINE [address] [place] [address] Yasmine Hernandez MD [address] [place], [place] [phone] Chronic pain syndrome Social History Tobacco Use [...] Cedillo RN - 06/15/2022 10:45 AM EST Lens Molder ck 06/15/22. documented in this encounter Plan of Treatment Upcoming Encounters Date Type Department Care Team (Late st Contact Info) Description 10/04/2024 1:00 PM EDT Clinical Support [facility] MEDICINE [address] [place] [phone] Sandra Boyd RN documented as of this encounter Visit Diagnoses Diagnosis Chronic pain syndrome documented in this encounter Care Teams Occupational Therapy Aide Relationship Specialty Start Date End Date Pretty Molina MD [address] [place] [address] PCP - General Family Medicine 12/24/20 documented as of this encounter
--- OUTSIDE RECORDS SUMMARY | 2024-07-25 15:28 | XMS_ITS | Encounter Summary ---
Author Organization [employer] Address [address] [facility] 7t [place] [address] Care Team Providers Care Poultry Helper Name Role Phone Pretty Molina MD Primary Care Provide r Encounter Details Date Type Department Care Team (Latest Contact Info) Description 2019 Abstract [facility] CONVERSIONS Dental, Provider, DDS Social History Tobacco [...] Description 10/04/2024 1:00 PM EDT Clinical Support [facility] MEDICINE [address] [place] [address] Sandra Boyd RN documented as of this encounter Visit Diagnoses Not on filedocumented in this encounter Care Teams Poultry Helper Relationship Specialty Start Date End Date Pretty Molina MD [address] [place] [address] PCP - General Family Medicine 12/24/20 documented as of this encounter
--- OUTSIDE RECORDS SUMMARY | 2024-07-25 15:28 | XMS_ITS | Encounter Summary ---
Author Organization [employer] Address [address] [facility] 7t [place] [address] Care Team Providers Care Music Director Name Role Phone Pretty Molina MD Primary Care Provide r Reason for Visit * Reason Comments Med Refill Encounter Details Date Type Department Care Team (Late st Contact Info) Description 06/06/2024 Refill [facility] MED & PEDS [address] [place] [address] Pretty Molina MD [address] [place] [address] Type 2 diabetes mellitus with hyperglycemia, without long-term current use of insulin ([facility]) Social History Tobacco Use Types Packs/Day Years [...] Description 10/04/2024 1:00 PM EDT Clinical Support [facility] MEDICINE [address] [place] [address] Sandra Boyd, TONY documented as of this encounter Visit Diagnoses Diagnosis Type 2 diabetes mellitus with hyperglycemia, without long-term current use of insulin ([facility]) documented in this encounter Additional Health Concerns Assessment Noted Time PHQ-9 Depression Total Score: 4 01/06/20 24 2:22 PM EDT documented as of this encounter Care Teams Music Director Relationship Specialty Start Date End Date Pretty Molina MD [address] [place] [address] PCP - General Family Medicine 12/24/20 documented as of this encounter
--- OUTSIDE RECORDS SUMMARY | 2024-07-25 15:28 | XMS_ITS | Encounter Summary ---
Author Organization [employer] Address [address] [facility] 7t [place] [address] Care Team Providers Care It Project Lead Name Role Phone Pretty Molina MD Primary Care Provide r Reason for Visit * Reason Comments Med Refill Encounter Details Date Type Department Care Team (Late st Contact Info) Description 05/02/2023 Refill [facility] MEDICINE [address] [place] [address] Jocelyn Bender DO [address] [place] [address] Seasonal allergic rhinitis, unspecified trigger Social History [...] Description 10/04/2024 1:00 PM EDT Clinical Support [facility] MEDICINE [address] [place] [address] Sandra Boyd RN documented as of this encounter Visit Diagnoses Diagnosis Seasonal allergic rhinitis, unspecified trigger documented in this encounter Additional Health Concerns Assessment Noted Time PHQ-9 Depression Total Score: 12 023 3:08 PM EDT documented as of this encounter Care Teams It Project Lead Relationship Specialty Start Date End Date Pretty Molina MD [address] [place] [address] PCP - General Family Medicine 12/24/20 documented as of this encounter
--- OUTSIDE RECORDS SUMMARY | 2024-07-25 15:28 | XMS_ITS | Clinical Summary ---
Author Organization [employer] Address [address] [place] [address] 7t [place] [address] Care Team Providers Care Wafer Slicer Name Role Phone Pretty Molina MD Primary [...] hyperglycemia, without long-term current use of insulin ([facility]) 1 kit 2 times daily. [...] hyperglycemia, without long-term current use of insulin ([facility]) Inject 1 each into the [...] tabletIndication s:Diabetes mellitus type 2 in nonobese ([facility]) TAKE 1 TABLET BY MOUTH [...] mellitus with other specified complication, unspecified whether manager terminal insulin use ([facility]) TAKE 1 TABLET BY MOUTH [...] eorder (will not trigger notification to Pharmacy)) Active Problems Problem Noted Date Diagnosed Date [...] Encounters Date Type Department Care Team Description 07/20/2024 Orders Only GENERIC EXTERNAL DATA DEPARTMENT Provider, Generic External Data 07/19/2024 Refill [facility] [address] [place] [address] Pretty Molina MD 07/18/2024 Orders Only GENERIC EXTERNAL DATA DEPARTMENT Provider, Generic External Data 07/18/2024 Refill [facility] [address] [place] [address] Pretty Molina MD Dry eye syndrome of bilateral lacrimal glands 07/09/2024 Refill [facility] [address] [place], [place] [phone] Pretty Molina MD Other chronic pain 07/01/2024 Refill [facility] [address] [place] [address] Cristian Briones CNM 06/25/2024 Refill [facility] [address] [place], [place] [phone] Pretty Molina MD Primary hypertension 06/20/[address] [facility] MEDICINE [address] [place] [address] Noemi Schwartz MD Seasonal allergies 06/16/[address] [facility] MEDICINE [address] [place] [address] Pretty Molina MD Neuropathy 06/11/2024 2:00 PM EST Office Visit [facility] MEDICINE [address] [place] [address] Pretty Molina MD Chronic cough (Primary Dx); Type 2 diabetes mellitus with hyperglycemia, without long-term current use of insulin (CMS/HCC); Encounter for screening mammogram for malignant neoplasm of breast; Tobacco dependence; Encounter for preventive care 06/11/2024 Travel 06/08/[address] [facility] MEDICINE [address] [place] [address] Vicki Ghosh MA Chart Prep 06/07/[address] [address] Mauro Frye MA DME from [facility]&P 06/06/[address] [facility] MED [facility] PEDS [address] [place], [place] [phone] Pretty Molina MD Type 2 diabetes mellitus with hyperglycemia, without long-term current use of insulin (CMS/HCC) 06/05/2024 10:30 AM EST Clinical Support [facility] MEDICINE [address] [place] [address] Sandra Boyd RN Other chronic pain (Primary Dx) 06/05/[address] [facility] MEDICINE [address] [place] [address] Sandra Boyd RN Other chronic pain 06/05/[address] [facility] MEDICINE [address] [place] [address] Pretty Molina MD Type 2 diabetes mellitus with hyperglycemia, without long-term current use of insulin (CMS/HCC) 06/05/2024 Travel 06/05/[address] [facility] MEDICINE [address] [place] [address] Sandra Boyd, TONY Recommend FLORAL DESIGN TEACHER Tier 3 05/30/2024 Patient Outreach [facility] MEDICINE [address] [place] [phone] Pretty Molina MD Pre-visit Planning ([facility] screening completed on 12/28/2023) 05/25/[address] [facility] MEDICINE [address] [place] [phone] Mauro Frye MA DME from [facility] 05/22/[address] [facility] MEDICINE [address] [place] [phone] Pretty Molina MD 05/20/2024 Refill [facility] MED & PEDS [address] [place] [address] Pretty Molina MD Type 2 diabetes mellitus with other specified complication, unspecified whether manager terminal insulin use (CMS/HCC) 05/16/2024 Refill [facility] MED & PEDS [address] [place] [address] Pretty Molina MD 05/08/[address] [facility] MEDICINE [address] [place] [address] Pretty Molina MD Med Refill 05/07/2024 Refill [facility] MED & PEDS [address] [place] [address] Pretty Molina MD Other chronic pain 05/04/[address] [facility] MEDICINE [address] [place] [phone] Pretty Molina MD Appointment Request 04/30/[address] [facility] MEDICINE [address] [place] [phone] Pretty Molina MD Neuropathy 04/27/2024 11:00 AM EST Office Visit [facility] MEDICINE [address] [place] [phone] Pretty Molina MD Moderate persistent asthma with exacerbation (Primary Dx); Type 2 diabetes mellitus with hyperglycemia, without long-term current use of insulin (CMS/HCC); RSV (respiratory syncytial virus pneumonia) 04/27/2024 Travel 04/26/[address] [facility] MEDICINE [address] [place] [address] Pretty Molina MD Nurse Triage 04/26/[address] [facility] PEDS [address] [place] [address] Pretty Molina MD Vitamin D deficiency 04/24/2024 Orders Only [facility] External Provider, [facility] from Last 3 Months Immunizations Name Administration [...] Description 10/04/2024 1:00 PM EDT Clinical Support [facility] MEDICINE [address] [place] [phone] Sandra Boyd, RN Health Maintenance Due Date Last Done Comments CT Colonography 1960 Colonoscopy 1961 Colorectal Cancer Screening 1961 FIT DNA/Cologuard 1961 FIT 1961 FOBT 1961 Sigmoidoscopy 1961 Diabetes: Foot Exam 1971 Eye Exam 1971 Alcohol/Substance Use Screening 1973 Hepatitis A Vaccines (1 of 2 - Risk 2-dose series) 1980 Pneumococcal Vaccine: 50+ Years (1 of 2 - PCV) 1980 COVID-19 Vaccine (3 - season) 2024 10/30/2020, 10/02/2020 Mammogram 03/16/2024 03/16/2023, [...] Procedure Name Priority Date/Time Associated Diagnosis Comments US PELVIS TRANSVAGINAL Routine 07/21/2024 9:20 AM EST BASIC METABOLIC PANEL Routine 07/20/2024 12:01 PM EST HEMATOXYLIN AND EOSIN STAIN Routine 07/18/2024 12:02 PM EST POCT GLUCOSE Routine 06/11/2024 1:58 PM EST Type 2 diabetes mellitus with hyperglycemia, without long-term current use of insulin (CMS/HCC) POCT HECTOR-14 URINE DRUG SCREEN Routine 06/05/2024 10:01 AM EST Other chronic pain POCT GLUCOSE Routine 04/27/2024 11:24 AM EST Type 2 diabetes mellitus with hyperglycemia, without long-term current use of insulin (CMS/HCC) CT CHEST WO CONTRAST Routine 04/24/2024 9:30 PM EST POCT GLYCATED HEMOGLOBIN, TOTAL Routine 04/05/2024 3:05 [...] Recently Relevant to Health Maintenance Results * US Pelvis Transvaginal (07/21/2024 9:20 AM EST) Anatomical Region Laterality Modality Pelvis Ultrasound 07/21/2024 9:20 AM EST Narrative 07/21/2024 9:21 AM EST ? [facility] ?[address] ?[place] [address] ? Ultrasound Report ? Signed ? Patient: Violet Pascal ?MR#: [id number] ?? [id number] ? : 1960 ?Acct:[id number] ? Age/Sex: 64 / F ?ADM Date: 07/20/24 ? Loc: HO.US ? Attending Dr: Ramesh Gurrola MD ? Ordering Physician: Ramesh Gurrola MD ?? Date of Service: 07/20/24 ?? Procedure(s): US pelvic and transvaginal ?? Accession Number(s): [id number] ? cc: Pretty Molina MD; Ramesh Gurrola MD ? CLINICAL HISTORY: D25.9 - Leiomyoma of uterus, unspecified ? US pelvis transvaginal ? Comparison: 04/10/2024 ? Findings: ?? Transvaginal scanning performed. ? Anteverted uterus is 7.1 cm length. ?? Normal myometrium. ?? No endometrial lesion, 2.0 mm thickness. ?? Is a fundal myometrial 1.2 x 1.2 x 0 9 cm leiomyoma. ? Right ovary 2.4 x 1.7 x 0.8 cm. ?? Left ovary not visualized. ? No free fluid. ? IMPRESSION: ?? 1. Uterine fundal myometrial leiomyoma ? This document has been electronically signed by: Eliceo David MD on ?? 07/21/2024 09:20:05 ? Dictated By: ?Eliceo David MD ? Signed By: ?<Electronically signed by Eliceo David MD in OV> ?07/21/24 0920 ? DD/ 0920 ? TD/TT: 07/21/24 0920 ? Dust Handler: ? Procedure Note Gila Parr - 07/21/[address] [address] Ultrasound Report Signed Patient: Abraham Pascal#: [id number] : 1960cct:[id number] Age/Sex: 64 / FADM Date: 07/20/24 Loc: HO.US Attending Dr: Ramesh Gurrola MD Ordering Physician: Ramesh Gurrola MD Date of Service: 07/20/24 Procedure(s): US pelvic and transvaginal Accession Number(s): [id number] cc: Pretty Molina MD; Ramesh Gurrola MD CLINICAL HISTORY: D25.9 - Leiomyoma of uterus, unspecified US pelvis transvaginal Comparison: 04/10/2024 Findings: Transvaginal scanning performed. Anteverted uterus is 7.1 cm length. Normal myometrium. No endometrial lesion, 2.0 mm thickness. Is a fundal myometrial 1.2 x 1.2 x 0 9 cm leiomyoma. Right ovary 2.4 x 1.7 x 0.8 cm. Left ovary not visualized. No free fluid. IMPRESSION: 1. Uterine fundal myometrial leiomyoma This document has been electronically signed by: Eliceo David MD on 07/21/2024 09:20:05 Dictated By: Eliceo David MD Signed By: <Electronically signed by Eliceo David MD in OV> 07/21/[address] DD/ 9 TD/TT: 07/21/24919 Dust Handler: us [facility] External Provider IMG US PROCEDURES Edited Result - Final * (ABNORMAL) Basic Metabolic Panel (07/20/2024 12:01 PM EST) Sodium 137 135 - 145 mmol/L [facility] Potassium 4.2 3.3 - 5.1 mmol/L [facility] Chloride 103 96 - 108 mmol/L [facility] Carbon Dioxide 24 22 - 29 mmol/L [facility] Anion Gap 14 12 - 20 [facility] Urea Nitrogen (BUN) 18(H) 9 - 16 mg/dL [facility] Creatinine, Serum 0.75 0.5 - 1.4 mg/dL [facility] Estimated Glomerular Filt Rate >60 [facility] Comment:Chronic Kidney Disea se: Estimated GFR < 60 mL/min/1.89i5Nwbpoi Kidney Disease: Estimated GFR < 15 mL/min/1.73m2 Glucose 156(H) 60 - 115 mg/dL [facility] Calcium 9.4 8.4 - 10.2 mg/dL [facility] 07/20/2024 12:0 1 PM EST 07/20/2024 12:01 PM EST us Generic External Data Provider LAB BLOOD ORDERAB LES Final Result [facility] [address] [place], [place] [phone] * Hematoxylin and Eosin Stain (07/18/2024 12:02 PM EST) 07/18/2024 12:0 2 PM EST 07/19/2024 7:32 AM EST Narrative [facility] - 07/20/2024 11:43 AM EST ----- ------- Name: Violet Pascal ? Age/Sex: 64/F ? : 1960 Unit#: [id number] ?? Attend Dr: Ramesh Gurrola MD ?Re07/18/24 ?Status: DEP REF ? Location: HO.LNP ?Disch: ? ----- ------- SPEC : [id number] ?RECD: 07/19/24 ? STATUS: ??SOUT ? REQ NUM: [id number] ? YASMINE: 07/18/24 ? SUBM DR: Ramesh [...] submitted in toto in a cassette labeled Kierra ARCHULETA Copies To: ?? Pretty Molina MD ?? [facility] ?? [address] ?? [place] [address] ?? [phone] ?? Ramesh Gurrola MD ?? [facility] ?? [address] [facility] [address] ?? [place] [address] ?? [phone] ? CONTINUED ON NEXT PAGE ----- ------- Name: Violet Pascal ? Age/Sex: 64/F ? : 1960 Unit#: [id number] ?? Attend Dr: Ramesh Gurrola MD ?Re07/18/24 ?Status: DEP REF ? Location: HO.LNP ?Disch: ? ----- ------- SPEC : [id number] ?RECD: 07/19/24 ? STATUS: ??SOUT ? REQ NUM: [id number] ? YASMINE: 07/18/24-1202 ? SUBM DR: Ramesh Gurrola MD ? ENTERED: ??07/19/24-735 ?SP TYPE: Surgical ? OTHR DR: Pretty Molina MD ? ORDERED: ??HE Stain/2, Gross Micro L4 ? ----- ------- Signed (signature on file) Wally Harding MD 07/20/24 1143 ? ----- ------- ? END OF REPORT ? us Generic External Data Provider LAB BLOOD ORDERAB LES Final Result [facility] [address] [place] [address] [phone] * POCT Glucose (06/11/2024 1:58 PM [...] - 06/05/2024 10:01 AM EST UTOX cup Lot#[id number] Exp. 03/07/26 Internal Pass Control us Pretty Zayas MD POINT OF CARE TEST EN TER/EDIT ORDERABLES Final Result * CT Chest w/o Contrast (04/24/2024 9:30 PM EST) Anatomical Region Laterality Modality Body, Chest Computed Tomogra phy 04/24/2024 9:30 PM EST Narrative 04/24/2024 11:17 PM EST ? [facility] ?[address] [place] [address]. ?[place] [address] ? CT Scan Report ? Signed ? Patient: Pascal,Fredevinda ?MR#: [id number] ?? [id number] ? : 1960 ?Acct:[id number] ? Age/Sex: 64 / F ?ADM Date: 11/12/24 ? Loc: HO.ED ? Attending Dr: ? Ordering Physician: Ashlie Rust CNP ?? Date of Service: 04/24/24 ?? Procedure(s): CT chest wo IV con ?? Accession Number(s): [id number] ? cc: rPetty Molina MD; Ashlie Rust CNP ? EXAMINATION: [...] MD in OV> ?04/24/24 2313 ? DD/ 2130 ? TD/TT: 04/24/24 2145 ? Dust Handler: BA ? Procedure Note Dontabithater, Image - 04/24/[address] [place] [address] [address] Scan Report Signed Patient: Abraham Pascal#: [id number] : 1960cct:[id number] Age/Sex: 64 / FADM Date: 04/24/24 Loc: HO.ED Attending Dr: Ordering Physician: Ashlie Rust CNP Date of Service: 04/24/24 Procedure(s): CT chest wo IV con Accession Number(s): [id number] cc: Pretty Molina MD; Ashlie Rust ELECT EQUIP MAINT ENG EXAMINATION: CT CHEST WITHOUT CONTRAST CLINICAL INFORMATION: [...] Kendall MD Signed By: <Electronically signed by aLvelle Kendall MD in OV> 04/24/242312 DD/ 29 TD/TT: 04/24/242144 Dust Handler: BRE[facility]NA [facility] External Provider IMG CT PROCEDURES Edited Result - Final * (ABNORMAL) POCT HGB A1C (04/05/2024 3:05 PM EDT) Hemoglobin A1C 6.9(A) 4.0 - 6.0 % QC Media Lot # [id number] Lot# Expiration Date ,391,[id number] Blood 04/05/2024 3:05 PM EDT Pretty Zayas MD POINT OF CARE TEST EN TER/EDIT ORDERABLES Final Result * Lipid Panel with Reflex to Direct LDL (01/10/2024 8:26 AM EDT) Triglycerides 140 <150 mg/dL [facility] Comment:Desirable Triglyceri de: less than 150 mg/dLBorderline High Triglyceride 150-199 mg/dLHigh Triglyceride: 200-499 mg/dLVery High Triglyceride: greater than or equal to 5OO mg/dL Cholesterol 155 <200 mg/dL [facility] Comment:Desirable Cholestero l: less than 200 mg/dLBorderline High Cholesterol: 200-239 mg/dLHigh Cholesterol: greater than 239 mg/dL LDL Cholesterol Calculated 80 <100 mg/dL [facility] Comment:Desirable LDL: less than 100 mg/dLNear Optimal/Above Optimal LDL: 110- 129 mg/dLBorderline High LDL: 130-159 mg/dLHigh LDL: 160-189 mg/dLVery High LDL: greater than or equal to 190 mg/dL HDL Cholesterol 47 >40 mg/dL [facility] Comment:Desirable HDL: great er than 40 mg/dL Note: This HDL assay may give artificially low results in patients with liver disease. Blood 01/10/2024 8:26 AM EDT 01/10/2024 11:20 AM EDT Pretty Zayas MD LAB BLOOD ORDERABLES Final Result [facility] [address] [place] [phone] * HPV mRNA E6/E7 w/Reflex to HPV Genotypes 16, 18/45 (04/18/2023 2:08 PM EST) HPV nRNA E6/E7 Not Detected Not Detected [facility] Comment:Methodology: Transcr iption-Mediated AmplificationThis assay detects E6/E7 viral messenger RNA (mRNA) from 14high-risk HPV types (16,18,31,33,35,39,45,51,52,56,58,59,66,68).Cervical sources are required for HPV testing.If a vaginal source from a patient who has had atotal hysterectomy with removal of cervix wassubmitted, please contact the testing laboratoryfor alternative testing options.For additional information, please refer tohttp://education.[employer]/faq/AWS159w5(This link if provided for information/educational purposes only.)THIS TEST WAS PERFORMED AT:[address] [place] [id number] ANNE MD HPV mRNA E6/E7 TNP [facility] HPV 16 RNA TNP [facility] HPV 18/45 RNA TNP [facility] 04/18/2023 2:08 PM EST 04/19/2023 8:20 AM EST us Cristian Briones CNM LAB CYTOLOGY ORDERABLES F inal Result [facility] [address] [place] [address] [phone] * Pap Smear (04/18/2023 2:08 PM EST) 04/18/2023 2:08 PM EST 04/19/2023 8:20 AM EST Narrative [facility] - 04/26/2023 1:40 PM EST ----- ------- Name: Violet Pascal ? Age/Sex: 63/F ? : 1960 Unit#: [id number] ?? Attend Dr: CRISTIAN BRIONES CNM ?Re04/18/23 ?Status: DEP REF ? Location: HO.HHCLNP ? Disch: ? ----- ------- SPEC : [id number] ?RECD: 04/19/23 ? STATUS: ??SOUT ? REQ NUM: [id number] ? YASMINE: 04/18/23 ? SUBM DR: CRISTIAN [...] 66, 68) ?? HPV testing performed by [facility], [place], [place]. ??See reference laboratory ?? pion of the EMR for entire report. ?Clinical Information LMP: Postmenopausal Previous PAP test: Unknown date/findings ? Material Received ?? ThinPrep-Cervical ----- ------- Signed (signature on file) MARIOLA Walker (ASCP) 04/26/23 1340 ? ----- ------- ? END OF REPORT ? us Cristian Briones [facility] LAB CYTOLOGY ORDERABLES F inal Result Performing Organization Address [facility]/State/ZIP Co de Phone Number [facility] [address] [place] [phone] * BI Mammogram Screening Tomosynthesis Bilateral (03/16/2023 3:02 PM EDT) Anatomical Region Laterality Modality Breast Bilateral Mammography 03/16/2023 3:02 PM EDT Narrative 04/06/2023 11:34 PM EDT ? [facility] [place] ? [address] ?[place] [address] ? Mammography Report ? Signed ? Patient: Pascal,Fredevinda ?MR#: [id number] ?? [id number] ? : 1960 ?Acct:[id number] ? Age/Sex: 63 / F ?ADM Date: 10/04/23 ? Loc: HO.MAMMO ? Attending Dr: Pretty Zayas MD ? Ordering Physician: Pretty Molina MD ?Results: ?? 2Benign Findings ? Date of Service: 03/16/23 ?Follow Up: 1 Year From Orig ?? inal Mammogram ? Procedure(s): MM tomosynthesis screening BI ?? Accession Number(s): [id number] ? cc: Pretty Molina MD ? EXAMINATION: [...] by Kimberlyn Anderson MD in OV> ? 04/06/23 2304 ? DD/ 1502 ? TD/TT: ? Dust Handler: ? Procedure Note Donotuseinterpreter, Image - 04/06/2023 [place] [facility] [address] [place] [address] Mammography Report Signed Patient: Abraham Pascal#: [id number] : 1960cct:[id number] Age/Sex: 63 / FADM Date: 03/16/23 Loc: HO.MAMMO Attending Dr: Pretty Zayas MD Ordering Physician: Pretty Molina MDResults: 2Benign Findings Date of Service: 03/16/23Follow Up: 1 Year From Orig inal Mammogram Procedure(s): MM tomosynthesis screening BI Accession Number(s): [id number] cc: Pretty Molina MD EXAMINATION: MM SCREENING [...] in OV> 04/06/23 2304 DD/ 1502 TD/TT: Dust Handler: us Pretty Zayas MD IMG BI PROCEDURES Fadi tiara Result - Final * Hepatitis C Antibody (02/03/2021 12:01 PM EDT) Hepatitis C Antibody Nonreactive Nonreactive [facility] Comment: Antibodies to HCV not detected; does not exclude early acute HCV infection. HIV AB/AG Nonreactive Nonreactive [facility] Comment: HIV-1 p24 Ag and/or [...] detection of this assay. ?? The [facility] Resident Intern HIV Ag/Ab Combo assay result and supplemental assay results should be interpreted in conjunction with the patient's clinical presentation, history and other laboratory results. ??If the results are inconsistent with clinical evidence, additional testing is suggested to confirm the result. Hepatitis B Surface Antigen Negative Negative [facility] 02/03/2021 12:0 1 PM EDT us Ramesh Gurrola MD HISTORICAL/NON ORDERABLE LABS Fi nal Result [facility] [address] [place] [address], from Last 3 Months or Most Recently Relevant to Health Maintenance Insurance [facility] C3 Care Teams Wafer Slicer Relationship Specialty Start Date End Date Pretty Molina MD [address] [place] [address] PCP - General Family Medicine 12/24/20
--- OUTSIDE RECORDS SUMMARY | 2024-07-25 15:28 | XMS_ITS | Encounter Summary ---
Author Organization [employer] Address [address] [facility] 7t [place] [address] Care Team Providers Care Media Assistant Name Role Phone Pretty Molina MD Primary Care Provide r Encounter Details Date Type Department Care Team (Latest Contact Info) Description 05/31/2019 Abstract [facility] CONVERSIONS Dental, Provider, DDS Social [...] 1:00 PM EDT Clinical Support [facility] MEDICINE [address] [place] [address] Sandra Boyd RN documented as of this encounter Visit Diagnoses Not on filedocumented in this encounter Care Teams Media Assistant Relationship Specialty Start Date End Date Pretty Molina MD [address] [place] [address] PCP - General Family Medicine 12/24/20 documented as of this encounter
--- OUTSIDE RECORDS SUMMARY | 2024-07-25 15:28 | XMS_ITS | Encounter Summary ---
Author Organization [employer] Address [address] [facility] [address]t [place] [address] Care Team Providers Care Manager Transport Name Role Phone Pretty Molina MD Primary Care Provide r Reason for Visit * Reason Comments Med Refill Encounter Details Date Type Department Care Team ([facility] st Contact Info) Description 05/12/2023 Refill [facility]S [address] [place], [place] [phone] Pretty Molina MD [address] [place] [address] Neuropathy Social History Tobacco Use Types Packs/Day [...] Description 10/04/2024 1:00 PM EDT Clinical Support [facility] MEDICINE [address] [place] [address] Sandra Boyd RN documented as of this encounter Visit Diagnoses Diagnosis Neuropathy Mononeuritis of unspecified site documented in this encounter Additional Health Concerns Assessment Noted Time PHQ-9 Depression Total Score: 12 023 3:08 PM EDT documented as of this encounter Care Teams Manager Transport Relationship Specialty Start Date End Date Pretty Molina MD [address] [place] [address] PCP - General Family Medicine 12/24/20 documented as of this encounter
--- OUTSIDE RECORDS SUMMARY | 2024-07-25 15:28 | XMS_ITS | Encounter Summary ---
Author Organization [employer] Address [address] [facility] 7t [place] [address] Care Team Providers Care Duck Farmer Name Role Phone Pretty Molina MD Primary Care Provide r Reason for Visit * Reason Comments Med Refill Encounter Details Date Type Department Care Team ([facility] st Contact Info) Description 03/23/2023 Refill [facility] MED & PEDS [address] [place] [address] Pretty Molina MD [address] [place] [address] Neuropathy Social History Tobacco Use Types Packs/Day [...] Description 10/04/2024 1:00 PM EDT Clinical Support [facility] MEDICINE [address] [place] [address] Sandra Boyd RN documented as of this encounter Visit Diagnoses Diagnosis Neuropathy Mononeuritis of unspecified site documented in this encounter Additional Health Concerns Assessment Noted Time PHQ-9 Depression Total Score: 12 023 3:08 PM EDT documented as of this encounter Care Teams Duck Farmer Relationship Specialty Start Date End Date Pretty Molina MD [address] [place] [address] PCP - General Family Medicine 12/24/20 documented as of this encounter
--- OUTSIDE RECORDS SUMMARY | 2024-07-25 15:28 | XMS_ITS | Encounter Summary ---
Author Organization [employer] Address [address] [facility] 7 [place] [address] Care Team Providers Care Riveter Helper Name Role Phone Pretty Molina MD Primary Care Provide r Reason for Visit * Reason Onset Date Comments Med Refill 06/10/2022 Encounter Details Date Type Department Care Team (Late st Contact Info) Description 06/10/2022 Refill [facility] MEDICINE [address] [place] [address] Pretty Molina MD 230 [place], [place] [phone] Social History Tobacco Use Types Packs/Day Years [...] Description 10/04/2024 1:00 PM EDT Clinical Support [facility] MEDICINE [address] [place] [address] Sandra Boyd, RN documented as of this encounter Visit Diagnoses Not on filedocumented in this encounter Care Teams Riveter Helper Relationship Specialty Start Date End Date Pretty Molina MD 230 [place] [address] PCP - General Family Medicine 12/24/20 documented as of this encounter
--- OUTSIDE RECORDS SUMMARY | 2024-07-25 15:28 | XMS_ITS | Encounter Summary ---
Author Organization [employer] Address [address] [facility] 7t [place] [address] Care Team Providers Care Concrete Buildings Assembler Name Role Phone Pretty Molina MD Primary Care Provide r Reason for Visit * Reason Comments Med Refill Encounter Details Date Type Department Care Team (Late st Contact Info) Description 02/28/2023 Refill [facility] MEDICINE [address] [place], [place] [phone] Pretty Molina MD 230 [place], [place] [phone] Social History Tobacco Use Types Packs/Day Years [...] 1:00 PM EDT Clinical Support [facility] MEDICINE [address] [place] [phone] Sandra Boyd RN documented as of this encounter Visit Diagnoses Not on filedocumented in this encounter Additional Health Concerns Assessment Noted Time PHQ-9 Depression Total Score: 12 023 3:08 PM EDT documented as of this encounter Care Teams Concrete Buildings Assembler Relationship Specialty Start Date End Date Pretty Molina MD 230 [place] [address] PCP - General Family Medicine 12/24/20 documented as of this encounter
--- OUTSIDE RECORDS SUMMARY | 2024-07-25 15:28 | XMS_ITS | Encounter Summary ---
Author Organization [employer] Address 75 [facility] 7t [place] [address] Care Team Providers Care Rate Inserter Name Role Phone Pretty Molina MD Primary Care Provide r Encounter Details Date Type Department Care Team (Latest Contact Info) Description 04/21/2020 Abstract [facility] CONVERSIONS Dental, Provider, DDS Social History [...] Description 10/04/2024 1:00 PM EDT Clinical Support [facility] MEDICINE 230 [place] [address] Sandra Boyd RN documented as of this encounter Visit Diagnoses Not on filedocumented in this encounter Care Teams Rate Inserter Relationship Specialty Start Date End Date Pretty Molina MD 230 [place] [address] PCP - General Family Medicine 12/24/20 documented as of this encounter
--- OUTSIDE RECORDS SUMMARY | 2024-07-25 15:28 | XMS_ITS | Encounter Summary ---
Author Organization [employer] Address [address] [facility] 7t [place] [address] Care Team Providers Care Grill Associate Name Role Phone Pretty Molina MD Primary Care Provide r Reason for Visit * Reason Onset Date Comments Appointment Request 06/10/2022 Encounter Details Date Type Department Care Team ([facility] st Contact Info) Description 06/10/2022 Telephone [facility] MEDICINE [address] [place] [address] Pretty Molina MD 230 [place] [address] Appointment Request Social History Tobacco Use Types [...] will leave a message. Please contact at [phone] Speaks Nepali. documented in this encounter Plan of Treatment Upcoming Encounters Date Type Department Care Team (Late st Contact Info) Description 10/04/2024 1:00 PM EDT Clinical Support [facility] MEDICINE 230 [place] [address] Sandra Boyd, TONY documented as of this encounter Visit Diagnoses Not on filedocumented in this encounter Care Teams Grill Associate Relationship Specialty Start Date End Date Pretty Molina MD 230 [place] [address] PCP - General Family Medicine 12/24/20 documented as of this encounter
--- OUTSIDE RECORDS SUMMARY | 2024-07-25 15:28 | XMS_ITS | Encounter Summary ---
Author Organization [employer] Address [address] [facility] 7t [place] [address] Care Team Providers Care Audio Visual Design Engineer Name Role Phone Pretty Molina MD Primary Care Provide r Reason for Visit * Reason Comments Med Refill Encounter Details Date Type Department Care Team (Late st Contact Info) Description 05/10/2023 Refill [facility] MEDICINE 230 [place], [place] [phone] Pretty Molina MD 230 [place], [place] [phone] Other chronic pain Social History Tobacco Use [...] 1:00 PM EDT Clinical Support [facility] MEDICINE 230 [place] [address] Sandra Boyd RN documented as of this encounter Visit Diagnoses Diagnosis Other chronic pain documented in this encounter Additional Health Concerns Assessment Noted Time PHQ-9 Depression Total Score: 12 023 3:08 PM EDT documented as of this encounter Care Teams Audio Visual Design Engineer Relationship Specialty Start Date End Date Pretty Molina MD 230 [place] [address] PCP - General Family Medicine 12/24/20 documented as of this encounter
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
--- OUTSIDE RECORDS SUMMARY | 2024-07-25 15:29 | XMS_ITS | Encounter Summary ---
Author Organization [employer] Address 75 [facility] 7t [place] [address] Care Team Providers Care Hip Hop Dancer Name Role Phone Pretty Molina MD Primary Care Provide r Reason for Visit * Reason Comments Med Refill Encounter Details Date Type Department Care Team (Late st Contact Info) Description 04/15/2024 Refill [facility] [address] [place] [address] Pretty Molina MD 230 [place] [address] Social History Tobacco Use Types Packs/Day Years [...] Description 10/04/2024 1:00 PM EDT Clinical Support [facility] MEDICINE 230 [place] [address] Sandra Boyd RN documented as of this encounter Visit Diagnoses Not on filedocumented in this encounter Additional Health Concerns Assessment Noted Time PHQ-9 Depression Total Score: 4 01/06/20 24 2:22 PM EDT documented as of this encounter Care Teams Hip Hop Dancer Relationship Specialty Start Date End Date Pretty Molina MD 230 [place] [address] PCP - General Family Medicine 12/24/20 documented as of this encounter
--- OUTSIDE RECORDS SUMMARY | 2024-07-25 15:29 | XMS_ITS | Encounter Summary ---
Author Organization [employer] Address 75 [facility] 7t [place] [address] Care Team Providers Care Senior Analysis Specialist Name Role Phone Pretty Molina MD Primary Care Provide r Reason for Visit * Reason Comments Med Refill Encounter Details Date Type Department Care Team (Late st Contact Info) Description 11/24/2022 Refill [facility] ADULT DENTAL 230 [place] [address] Eliezer Richardson DDS [address] [place] [address] Social History Tobacco Use Types Packs/Day Years [...] Description 10/04/2024 1:00 PM EDT Clinical Support [facility] MEDICINE [address] [place] [address] Sandra Boyd RN documented as of this encounter Visit Diagnoses Not on filedocumented in this encounter Additional Health Concerns Assessment Noted Time PHQ-9 Depression Total Score: 12 023 3:08 PM EDT documented as of this encounter Care Teams Senior Analysis Specialist Relationship Specialty Start Date End Date Pretty Molina MD [address] [place] [address] PCP - General Family Medicine 12/24/20 documented as of this encounter
--- OUTSIDE RECORDS SUMMARY | 2024-07-25 15:29 | XMS_ITS | Encounter Summary ---
Author Organization [employer] Address 75 [facility] 7t [place] [address] Care Team Providers Care Refractory Grinder Operator Name Role Phone Pretty Molina MD Primary Care Provide r Reason for Visit * Reason Comments Med Refill Encounter Details Date Type Department Care Team (Late Contact Info) Description 12/27/2022 Refill [facility] MEDICINE 230 [place] [address] Jocelyn Bender DO [address] [place] [address] Seasonal allergic rhinitis, unspecified trigger Social History [...] Department Care Team (Late Contact Info) Description 10/04/2024 1:00 PM EDT Clinical Support [facility] MEDICINE 230 [place] [address] Sandra Boyd RN documented as of this encounter Visit Diagnoses Diagnosis Seasonal allergic rhinitis, unspecified trigger documented in this encounter Additional Health Concerns Assessment Noted Time PHQ-9 Depression Total Score: 12 023 3:08 PM EDT documented as of this encounter Care Teams Refractory Grinder Operator Relationship Specialty Start Date End Date Pretty Molina MD 230 [place] [address] PCP - General Family Medicine 12/24/20 documented as of this encounter
--- OUTSIDE RECORDS SUMMARY | 2024-07-25 15:29 | XMS_ITS | Encounter Summary ---
Author Organization [employer] Address 75 [facility] 7t [place] [address] Care Team Providers Care Bakery Chef Name Role Phone Pretty Molina MD Primary Care Provide r Reason for Visit * Reason Onset Date Comments Nurse Triage 04/26/2024 Encounter Details Date Type Department Care Team ([facility] st Contact Info) Description 04/26/2024 Telephone [facility] MEDICINE 230 [place] [address] Pretty Molina MD 230 [place] [address] Nurse Triage Social History Tobacco Use Types [...] 12:18 PM EST Please obtain note from [facility] visit 04/24/24, Upcoming appt with PCP tomorrow at 11am. * Telephone Encounter - Valeria Hooper LPN - 04/26/2024 11:58 AM EST Triage call returned with BLS #[id number] Yonathan. Patient reports that she was seen on 04/19/24. Patient is reporting following her Flu shot she has been feeling delicate . Chart shows Flu given in March. Call dropped. Return call with [employer] [place] [phone]. Patient reports seen at [facility] and not improved with cough and congestion. Has no reported fever. Patient then reports presented to [facility] on 04/24/24 and was given scan [...] caller accepted this outcome. Contact pt at [phone] documented in this encounter Plan of Treatment Upcoming Encounters Date Type Department Care Team (Late st Contact Info) Description 10/04/2024 1:00 PM EDT Clinical Support [facility] MEDICINE 230 [place] [address] Sandra Boyd, RN documented as of this encounter Visit Diagnoses Not on filedocumented in this encounter Additional Health Concerns Assessment Noted Time PHQ-9 Depression Total Score: 4 01/06/20 24 2:22 PM EDT documented as of this encounter Care Teams Bakery Chef Relationship Specialty Start Date End Date Pretty Molina MD 230 [place] [address] PCP - General Family Medicine 12/24/20 documented as of this encounter
--- OUTSIDE RECORDS SUMMARY | 2024-07-25 15:29 | XMS_ITS | Encounter Summary ---
Author Organization [employer] Address [address] [facility] 7t [place] [address] Care Team Providers Care Supervisor Fryer Farm Name Role Phone Pretty Molina MD Primary Care Provide r Reason for Visit * Reason Comments Med Refill Encounter Details Date Type Department Care Team (Late st Contact Info) Description 04/21/2024 Refill [facility] MEDICINE 230 [place], [place] [phone] Pretty Molina MD 230 [place] [address] Neuropathy Social History Tobacco Use Types Packs/Day [...] 1:00 PM EDT Clinical Support [facility] MEDICINE 230 [place] [address] Sandra Boyd RN documented as of this encounter Visit Diagnoses Diagnosis Neuropathy Mononeuritis of unspecified site documented in this encounter Additional Health Concerns Assessment Noted Time PHQ-9 Depression Total Score: 4 01/06/20 24 2:22 PM EDT documented as of this encounter Care Teams Supervisor [employer]er Farm Relationship Specialty Start Date End Date Pretty Molina MD 230 [place] [address] PCP - General Family Medicine 12/24/20 documented as of this encounter
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
--- OUTSIDE RECORDS SUMMARY | 2024-07-25 15:29 | XMS_ITS | Encounter Summary ---
Author Organization [employer] Address 75 [facility] 7t [place] [address] Care Team Providers Care Family Resource Management Professor Name Role Phone Pretty Molina MD [...] Description 10/04/2024 1:00 PM EDT Clinical Support [address] [address] Sandra Boyd RN documented as of this encounter Procedures Procedure Name Priority Date/Time Associated Diagnosis Comments HEMATOXYLIN AND EOSIN STAIN Routine 07/18/2024 12:02 PM EST documented in this encounter Results * Hematoxylin and Eosin Stain (07/18/2024 12:02 PM EST) 07/18/2024 12:0 2 PM EST 07/19/2024 7:32 AM EST [facility] - 07/20/2024 11:43 AM EST ----- ------- Name: Violet Pascal ? Age/Sex: 64/F ? : 1960 Unit#: [id number] ?? Attend Dr: Ramesh Gurrola MD ?Re07/18/24 ?Status: DEP REF ? Location: HO.LNP ?Disch: ? ----- ------- SPEC : [id number] ?RECD: 07/19/24 ? STATUS: ??SOUT ? REQ NUM: [id number] ? YASMINE: 07/18/24 ? SUBM DR: Ramesh [...] in toto in a cassette labeled A. CEDArash Copies To: ?? Pretty Molina MD ?? [facility] ?? [address] ?? [place] [address] ?? [phone] ?? Ramesh Gurrola MD ?? [facility] ?? [address] [facility] [address] ?? [place] [address] ?? [phone] ? CONTINUED ON NEXT PAGE ----- ------- Name: Violet Pascal ? Age/Sex: 64/F ? : 1960 Unit#: [id number] ?? Attend Dr: Ramesh Gurrola MD ?Re07/18/24 ?Status: DEP REF ? Location: HO.LNP ?Disch: ? ----- ------- SPEC : [id number] ?RECD: 07/19/24 ? STATUS: ??SOUT ? REQ NUM: [id number] ? YASMINE: 07/18/24-2 ? SUBM DR: Ramesh Gurrola MD ? ENTERED: ??07/19/24 ?SP TYPE: Surgical ? OTHR : Pretty Molina MD ? ORDERED: ??TRACEY Stain/2, Gross Micro L4 ? ----- ------- Signed (signature on file) Wally Harding MD 07/20/24 1143 ? ----- ------- ? END OF REPORT ? us Generic External Data Provider LAB BLOOD ORDERAB LES Final Result [facility] [address] [place] [address] [phone] documented in this encounter Visit Diagnoses Not on filedocumented in this encounter Additional Health Concerns Assessment Noted Time PHQ-9 Depression Total Score: 4 01/06/20 24 2:22 PM EDT documented as of this encounter Care Teams Family Resource Management Professor Relationship Specialty Start Date End Date Pretty Molina MD 230 [place] [address] PCP - General Family Medicine 12/24/20 documented as of this encounter
--- OUTSIDE RECORDS SUMMARY | 2024-07-25 15:29 | XMS_ITS | Encounter Summary ---
Author Organization [employer] Address 75 [facility] 7t [place] [address] Care Team Providers Care Manager Community Relations Name Role Phone Pretty Molina MD Primary Care Provide r Encounter Details Date Type Department Care Team (Late st Contact Info) Description 11/12/2022 Orders Only [facility]S [address] [place] [address] Jocelyn Fleming LPN Social History Tobacco Use [...] Description 10/04/2024 1:00 PM EDT Clinical Support [facility] MEDICINE 230 [place] [address] Sandra Boyd, RN documented as of this encounter Visit Diagnoses Not on filedocumented in this encounter Care Teams Manager Community Relations Relationship Specialty Start Date End Date Pretty Molina MD 230 [place] [address] PCP - General Family Medicine 12/24/20 documented as of this encounter
--- OUTSIDE RECORDS SUMMARY | 2024-07-25 15:29 | XMS_ITS | Encounter Summary ---
Author Organization [employer] Address [address] [facility] 7t [place] [address] Care Team Providers Care Manager Interface Name Role Phone Pretty Molina MD Primary Care Provide r Reason for Visit * Reason Comments Med Refill Encounter Details Date Type Department Care Team (Late st Contact Info) Description 07/19/2024 Refill [facility] MEDICINE 230 [place], [place] [phone] Pretty Molina MD 230 [place] [address] Social History Tobacco Use Types Packs/Day Years [...] Description 10/04/2024 1:00 PM EDT Clinical Support [facility] MEDICINE [address] [place] [address] Sandra Boyd RN documented as of this encounter Visit Diagnoses Not on filedocumented in this encounter Additional Health Concerns Assessment Noted Time PHQ-9 Depression Total Score: 4 01/06/20 24 2:22 PM EDT documented as of this encounter Care Teams Manager Interface Relationship Specialty Start Date End Date Pretty Molina MD [address] [place] [address] PCP - General Family Medicine 12/24/20 documented as of this encounter
--- OUTSIDE RECORDS SUMMARY | 2024-07-25 15:29 | XMS_ITS | Encounter Summary ---
Author Organization [employer] Address 75 [facility] 7t [place] [address] Care Team Providers Care Donkey Ride Operator Name Role Phone Pretty Molina MD Primary Care Provide r Reason for Visit * Reason Comments Med Refill Encounter Details Date Type Department Care Team (Late st Contact Info) Description 04/05/2024 Refill [facility] MEDICINE [address] [place], [place] [phone] Pretty Molina MD [address] [place] [address] Other chronic pain Social History Tobacco Use [...] Description 10/04/2024 1:00 PM EDT Clinical Support [facility] [address] [place] [address] Sandra Boyd RN documented as of this encounter Visit Diagnoses Diagnosis Other chronic pain documented in this encounter Additional Health Concerns Assessment Noted Time PHQ-9 Depression Total Score: 4 01/06/20 24 2:22 PM EDT documented as of this encounter Care Teams Donkey Ride Operator Relationship Specialty Start Date End Date Pretty Molina MD [address] [place] [address] PCP - General Family Medicine 12/24/20 documented as of this encounter
--- OUTSIDE RECORDS SUMMARY | 2024-07-25 15:29 | XMS_ITS | Encounter Summary ---
Author Organization [employer] Address 75 [facility] 7t [place] [address] Care Team Providers Care Snuff Grinder And Screener Name Role Phone Pretty Molina MD Primary Care Provide r Reason for Visit * Reason Comments Med Refill Encounter Details Date Type Department Care Team (Late st Contact Info) Description 12/06/2023 Refill [facility] MED[facility]INE [address] [place], [place] [phone] Pretty Molina MD [address] [place], [place] [phone] Other chronic pain Social History Tobacco Use [...] Support [facility] MED[facility]INE [address] [place] [address] Sandra Boyd RN documented as of this encounter Visit Diagnoses Diagnosis Other chronic pain documented in this encounter Additional Health Concerns Assessment Noted Time PHQ-9 Depression Total Score: 12 023 3:08 PM EDT documented as of this encounter Care Teams Snuff Grinder And Screener Relationship Specialty Start Date End Date Pretty Molina MD [address] [place] [address] PCP - General Family Medicine 12/24/20 documented as of this encounter
--- OUTSIDE RECORDS SUMMARY | 2024-07-25 15:29 | XMS_ITS | Encounter Summary ---
Author Organization [employer] Address 75 [facility] 7t [place] [address] Care Team Providers Care Fabrication Inspector Name Role Phone Pretty Molina MD Primary Care Provide r Encounter Details Date Type Department Care Team (Late st Contact Info) Description 07/20/2024 Orders Only GENERIC EXTERNAL DATA [...] Description 10/04/2024 1:00 PM EDT Clinical Support [facility] [address] [facility] [place] [address] Sandra Boyd RN documented as of this encounter Procedures Procedure Name Priority Date/Time Associated Diagnosis Comments US PELVIS TRANSVAGINAL Routine 07/21/2024 9:20 AM EST BASIC METABOLIC PANEL Routine 07/20/2024 12:01 PM EST documented in this encounter Results * US Pelvis Transvaginal (07/21/2024 9:20 AM EST) Anatomical Region Laterality Modality Pelvis Ultrasound 07/21/2024 9:20 AM EST Narrative 07/21/2024 9:21 AM EST ? [facility] ?[address] ?[place] [address] ? Ultrasound Report ? Signed ? Patient: Pascal,Violte ?MR#: [id number] ?? [id number] ? : 1960 ?Acct:[id number] ? Age/Sex: 64 / F ?ADM Date: 02/07/25 ? Loc: HO.US ? Attending Dr: Ramesh Gurrola MD ? Ordering Physician: Ramesh Gurrola MD ?? Date of Service: 07/20/24 ?? Procedure(s): US pelvic and transvaginal ?? Accession Number(s): [id number] ? cc: Pretty Molina MD; Ramesh Gurrola [...] MD in OV> ?07/21/24 0920 ? DD/ 9 ? TD/TT: 07/21/24919 ? Powerhouse Tender: ? Procedure Note Dontabithater, Image - 07/21/2024 [place] [address] Ultrasound Report Signed Patient: Abraham Pascal#: [id number] : 1960cct:[id number] Age/Sex: 64 / FADM Date: 07/20/24 Loc: HO.US Attending Dr: Ramesh Gurrola MD Ordering Physician: Ramesh Gurrola MD Date of Service: 07/20/24 Procedure(s): US pelvic and transvaginal Accession Number(s): [id number] cc: Pretty Molina MD; Ramesh Gurrola MD [...] in OV> 07/21/24919 DD/ 9 TD/TT: 07/21/24919 Powerhouse Tender: us [facility] External Provider IMG US PROCEDURES Edited Result - Final * (ABNORMAL) Basic Metabolic Panel (07/20/2024 12:01 PM EST) Sodium 137 135 - 145 mmol/L [facility] Potassium 4.2 3.3 - 5.1 mmol/L [facility] Chloride 103 96 - 108 mmol/L [facility] Carbon Dioxide 24 22 - 29 mmol/L [facility] Anion Gap 14 12 - 20 [facility] Urea Nitrogen (BUN) 18(H) 9 - 16 mg/dL [facility] Creatinine, Serum 0.75 0.5 - 1.4 mg/dL [facility] Estimated Glomerular Filt Rate >60 [facility] Comment:Chronic Kidney Disea se: Estimated GFR < 60 mL/min/1.92m5Rrfwze Kidney Disease: Estimated GFR < 15 mL/min/1.73m2 Glucose 156(H) 60 - 115 mg/dL [facility] Calcium 9.4 8.4 - 10.2 mg/dL [facility] 07/20/2024 12:0 1 PM EST 07/20/2024 12:01 PM EST Generic External Data Provider LAB BLOOD ORDERAB LES Final Result [facility] [address] [place] [address] [phone] documented in this encounter Visit Diagnoses Not on filedocumented in this encounter Additional Health Concerns Assessment Noted Time PHQ-9 Depression Total Score: 4 01/06/20 24 2:22 PM EDT documented as of this encounter Care Teams Fabrication Inspector Relationship Specialty Start Date End Date Pretty Molina MD [address] [place] [address] PCP - General Family Medicine 12/24/20 documented as of this encounter
--- OUTSIDE RECORDS SUMMARY | 2024-07-25 15:29 | XMS_ITS | Encounter Summary ---
Author Organization [employer] Address 75 [facility] 7t [place] [address] Care Team Providers Care Technical Translator Name Role Phone Pretty Molina MD Primary Care Provide r Reason for Visit * Reason Onset Date Comments Med Refill 01/05/2023 Encounter Details Date Type Department Care Team (Late st Contact Info) Description 01/05/2023 Telephone [facility] MED[facility]INE [address] [place] [address] Pretty Molina MD [address] [place] [address] Med Refill Social History Tobacco Use Types [...] Description 10/04/2024 1:00 PM EDT Clinical Support [facility] [address] [place] [address] Sandra Boyd RN documented as of this encounter Visit Diagnoses Not on filedocumented in this encounter Additional Health Concerns Assessment Noted Time PHQ-9 Depression Total Score: 12 023 3:08 PM EDT documented as of this encounter Care Teams Technical Translator Relationship Specialty Start Date End Date Pretty Molina MD [address] [place] [address] PCP - General Family Medicine 12/24/20 documented as of this encounter
== END 2024-07-25 14:05 | disposition home or self-care (01) ==
LOC: HO.MAMMO 14:04
PROVIDERS: PCP Internal Medicine; Visit Provider Internal Medicine
DX: Z12.31 Encounter for screening mammogram for malignant neoplasm of breast (principal)
CPT/HCPCS: 77063; 77067

== ENCOUNTER → 2024-07-25 14:30 | Outpatient (BNV) | payer MEDICAID, SELFPAY | PROVIDERS: PCP Internal Medicine; Visit Provider Internal Medicine | DX: Z12.31 Encounter for screening mammogram for malignant neoplasm of breast (principal) | CPT/HCPCS: 77063; 77067 ==

== ENCOUNTER 2024-08-07 14:15 | Outpatient (AMB) | payer MEDICAID, SELFPAY ==
[2024-08-07 14:31] VITALS: BP 132/78; PULSE 62; BMI 38.5
--- NOTE | 2024-08-07 14:31 | MHC.OFFVIS ---
Vital Signs 08/07/24 14:31 Height 5 ft 2 in Weight 210 lb 5.136 oz BMI 38.5 BP 132/78 Blood Pressure Location Lt radial Position Sitting Pulse 62 Intake Visit Reasons: f/up 08/01 cta Bumper Straightener Required: Yes Bumper Straightener Services: Bumper Straightener Present Bumper Straightener Name: Lee Morel [phone] Accompanied by: Self / Same As Patient Allergies morphine [MORPHINE] Allergy (Unknown, Verified 07/18/24 11:38) UNKNOWN Medication List - Last Reconciled 08/07/24 by Garrett Braun NP albuterol sulfate 90 mcg/actuation (ProAir HFA) 2 puffs inhalation Q4-6H PRN albuterol sulfate 1 amp inhalation Q6H PRN aspirin (Adult Low Dose Aspirin) 81 mg PO DAILY atorvastatin 80 mg PO BEDTIME bisacodyl (Dulcolax (bisacodyl)) 10 mg IL DAILY PRN blood sugar diagnostic (FreeStyle Lite Strips) As directed carvedilol 6.25 mg PO BID celecoxib (Celebrex) 200 mg PO QAM cetirizine (Allergy Relief (cetirizine)) 10 mg PO QAM cholecalciferol (vitamin D3) (Vitamin D3) 1 cap PO QAM cyclobenzaprine 10 mg (2 x 5 mg) PO TID PRN cyclosporine 0.05% (Restasis) 1 drp ophthalmic (eye) BID docusate sodium (Colace) 200 mg (2 x 100 mg) PO BEDTIME 30 days dulaglutide (Trulicity) mg subcut QWEEK duloxetine (Cymbalta) 60 mg PO QAM duloxetine (Cymbalta) 30 mg PO QPM empagliflozin (Jardiance) 25 mg PO QAM estradiol 0.01%(0.1mg/gram) 1 g vaginal 2XW fluoride (sodium) 1.1% (SF 5000 Plus) 1 appl dental BID fluticasone propionate 50 mcg/actuation (Flonase Allergy Relief) 2 sprays intranasal DAILY gabapentin (Neurontin) 600 mg PO TID glipizide 10 mg PO QAM hydrochlorothiazide 12.5 mg PO QAM hydrocortisone 2.5% (Proctozone-HC) 1 appl IL BEDTIME PRN hydroxyzine pamoate 25 - 50 mg PO BEDTIME PRN ketoconazole 2% 1 appl topical BID lancets (TRUEplus Lancets) As directed loratadine (Claritin) 10 mg PO DAILY PRN losartan 100 mg PO QAM metformin 1,000 mg PO BID mirabegron ER (Myrbetriq) 50 mg PO DAILY naloxone 4 mg/actuation 1 spray intranasal DAILY PRN nifedipine ER 60 mg PO DAILY omeprazole 20 mg PO QAM oxycodone-acetaminophen 5-325 mg (Endocet) 1 tab PO BID PRN peg 3350-electrolytes 236-22.74-6.74 -5.86 gram (Golytely) 240 mL PO Q10M polyethylene glycol 3350 (Miralax) 17 grams PO DAILY psyllium husk (Metamucil) 1 tbsp PO DAILY 30 days risperidone (Risperdal) 2 mg PO BEDTIME HPI Comments Details: This is a 64-year-old [place]ayan-speaking female patient presenting for a follow-up visit. A employee benefits insurance agent was used throughout the visit. Patient with a history of hypertension, diabetes, dyslipidemia, and heart block atrioventricular, and was previously seen in the office for palpitations and chest discomfort. To address the chest discomfort, the patient underwent coronary CTA and is here to discuss the results. Patient is otherwise reporting feeling well overall and denies any symptoms of exertional chest pain, shortness of breath, palpitations, dizziness, fatigue, orthopnea, PND, leg edema, presyncope, or syncope. Patient states she has been compliant with all her medications. [facility] Medical History Asymmetric septal hypertrophy Heart block atrioventricular Chronic pain Depression Vascular insufficiency Lichen Hip pain Foot pain Foot callus Cubital tunnel syndrome Chronic vulvovaginitis Carpal tunnel syndrome Burn scar contracture of upper arm Blurring of visual image Mood disorder Hyperlipidemia Renal cyst Hematuria of unknown cause Smoker Arthritis Back pain Diabetes GERD (gastroesophageal reflux disease) Fibromyalgia Anxiety and depression MARK on CPAP Chronic sinusitis Asthma Elevated cholesterol HTN (hypertension) Surgical History Hx of cystoscopy S/P lumpectomy of breast (04/20/21) Hx of colonoscopy Hx of dilation and curettage H/O tubal ligation History of skin graft Family History Father No problems noted. Mother No problems noted. 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 Female Reproductive History Menstrual Age of Menarche: 14 Review of Systems Const Denies chills, Denies fatigue, Denies fever(s), Denies weight gain and Denies weight loss ENT Denies dizziness Card Denies chest pain, Denies leg edema, Denies lightheadedness, Denies palpitations, Denies dyspnea on exertion, Denies orthopnea and Denies other Resp Denies cough and Denies dyspnea on exertion GI Denies hematochezia and Denies change in stool character Musc Denies abnormal gait, Denies muscle weakness, Denies numbness, Denies radiating pain into limb and Denies tingling Neuro Denies abnormal gait, Denies dizziness, Denies numbness and Denies tingling Endo Denies fatigue and Denies palpitations Physical Exam Vital Signs: Last Vital Signs Pulse 62 08/07/24 14:31 BP 132/78 08/07/24 14:31 BMI result Body Mass Index 38.5 Const General: cooperative, healthy appearing, comfortable and no acute distress Orientation/consciousness: patient oriented x3 HEENT Head: Yes normal to inspection Neck Neck: Yes normal visual inspection, Yes trachea midline and Yes supple Chest Chest palpation & inspection: normal inspection of the chest Resp Effort & Inspection: normal respiratory effort Auscultation: clear to auscultation bilaterally, no crackles, no rales, no rhonchi and no wheezes Cardio Jugular venous distension: no JVD Palpation: normal PMI Rate: regular rate Rhythm: regular rhythm Heart sounds: S1 normal heart sound present, S2 normal heart sound present, no click, no gallops, no murmurs and no rubs Peripheral pulses: Peripheral pulses 2+ throughout GI Inspection: Yes normal to inspection Palpation (GI): Soft to palpation Auscultation: normal bowel sounds Skin General skin exam: no rashes or lesions noted Neuro General: patient oriented x3 Extrem General: Yes normal to inspection, No no pedal edema and No calf tenderness Psych Appearance: grossly normal Mental Status: mental status grossly normal Speech and movement: Normal speech and movement present Office Procedures EKG Details: EKG today showed normal sinus rhythm, 62 beats per minute, low-voltage QRS, nonspecific STT wave abnormalities, normal IL, [place]. [address]-Meyuvmzsnykryelsr, Complete Assessment & Plan Assessment & Plan (1) Heart block atrioventricular: Code(s): I44.30 - Unspecified atrioventricular block Category: Medical Plan: Holter monitor back November of 2021 showed multiple episodes of Mobitz type 1 2nd degree AV block with intermittent junctional rhythm in the early childhood associate hours. We might have to slowly come off the carvedilol due to this. Also have to be careful about her blood pressure management and may need to add spironolactone at that time. EKG today showed normal sinus rhythm with normal IL. (2) Hyperlipidemia: Code(s): E78.5 - Hyperlipidemia, unspecified Category: Medical Plan: 08/02/2024-coronary CTA showed minimal stenosis in the mid left main, minimal stenosis at the origin of the ramus. 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 Multiple risk factors. Most recent LDL at 80, ideally goal for her LDL less than 70. Continue high dose statin therapy. We will add Zetia to this management. We will repeat labs. (3) Essential hypertension: Code(s): I10 - Essential (primary) hypertension Category: Medical Plan: Blood pressure today is well-controlled. Continue carvedilol, hydrochlorothiazide, losartan, nifedipine. Advised patient to continue monitoring blood pressures at home. Ideally, blood pressure goal for patient less than 130/84. (4) Asymmetric septal hypertrophy: Code(s): I42.2 - Other hypertrophic cardiomyopathy Category: Medical Plan: 10/25/2022-echo showed a normal EF 58% with severe focal hypertrophy of the basal septum, mild calcification of the aortic valve. We will repeat echo before her next visit. Advised heart healthy diet, regular exercise, losing weight, aggressive management of diabetes, blood pressure, cholesterol. Patient will follow-up with us in the office in 6 months. Interim, patient will call us with any concerns. This note was generated using voice recognition software. While every effort has been made to ensure accuracy and proper speech instructor, there may be occasional errors that could affect the content or meaning of the described symptoms. Orders: Orders Lipid Panel Today E78.5 - Hyperlipidemia, unspecified AMB EKG-In Office Today I44.30 - Unspecified atrioventricular block CA echo transthoracic complete Today I10 - Essential (primary) hypertension Medications: New ezetimibe 10 mg PO DAILY 90 tabs 1RF Coding Level of Care Code Est Pt Level 4 (08426) Diagnoses Heart block atrioventricular I44.30 Hyperlipidemia E78.5 Essential hypertension I10 Asymmetric septal hypertrophy I42.2 CPT Codes EKG - CPT: 81981-Zczfmlfurlicnahkj, Complete ([id number]) Time Spent (min) 32 Comment Time spent in reviewing the chart, test results, assessment, counseling and documentation.
--- OUTSIDE RECORDS SUMMARY | 2024-08-07 17:51 | XMS_ITS | Encounter Summary ---
Author Organization [employer] Address 75 [facility] 7t [place] [address] Care Team Providers Care Hr Systems Analyst Name Role Phone Pretty Molina MD Primary Care Provide r Reason for Visit * Reason Comments Care Coordination SDOH Encounter Details Date Type Department Care Team (Latest Contact Info) Description 08/02/2024 Patient Outreach [facility] MEDICINE [address] [place] [address] Pretty Molina MD [address] [place] [address] Care Coordination (SDOH) Social History Tobacco Use Types Packs/Day Years [...] AM EDT documented as of this encounter Progress Notes * Mercedez Montano - 08/02/2024 10:31 AM EST CHW Mercedez Montano placed outbound call to patient to follow up on SDOH needs. Patient's name, and address confirmed. Patient states is doing well. Patient expressed food insecurities, stated FS at times not enough. CHW explained [employer] project bread program and let her know I would send a referral to [employer]. Patient understood and agreed. CHW will follow up with patient to see if she was approved. No further questions or concerns. CHW reinforced direct contact information or CM for any additional questions or concerns and extended clinic hours on Mondays and Wednesdays, and Walk-In Urgent Care Located in [facility]. Patient provided with after-hours line for [facility], , which offer nighttime triage service and option to transfer to school commissioner provider ifneeded. Patient verbalizes understanding, and able to repeat back to tag writer. A follow up call will be placed within 10 days, patient agrees with plan. documented in this encounter Plan of Treatment Upcoming Encounters Date Type Department Care Team ([facility] st Contact Info) Description 10/04/2024 1:00 PM EDT Clinical Support [facility]INE [address] [place] [phone] Sandra Boyd, RN 10/10/2024 10:30 AM EDT Office Visit [facility] [address] [place], [place] [phone] Pretty Molina MD [address] [place] [phone] documented as of this encounter Visit Diagnoses Not on filedocumented in this encounter Additional Health Concerns Assessment Noted Time PHQ-9 Depression Total Score: 4 01/06/20 24 2:22 PM EDT documented as of this encounter Care Teams Hr Systems Analyst Relationship Specialty Start Date End Date Pretty Molina MD [address] [place] [phone] PCP - General Family Medicine 12/24/20 documented as of this encounter
--- OUTSIDE RECORDS SUMMARY | 2024-08-07 17:51 | XMS_ITS | Encounter Summary ---
Author Organization [employer] Address 75 [facility] 7t [place] [address] Care Team Providers Care Staff Air Tactical Officer Name Role Phone Pretty Molina MD Primary Care Provide r Reason for Visit * Reason Comments Med Refill Encounter Details Date Type Department Care Team (Late st Contact Info) Description 06/11/2022 Refill [facility] MEDICINE [address] [place] [address] Yasmine Hernandez MD [address] [place], [place] [phone] Chronic pain syndrome Social History Tobacco Use [...] Cedillo RN - 06/15/2022 10:45 AM EST Digital Content Producer ck 06/15/22. documented in this encounter Plan of Treatment Upcoming Encounters Date Type Department Care Team (Late st Contact Info) Description 10/04/2024 1:00 PM EDT Clinical Support [facility] MEDICINE [address] [place] [phone] Sandra Boyd RN 10/10/2024 10:30 AM EDT Office Visit [facility] MED[facility]INE [address] [place] [address] Pretty Molina MD [address] [place] [phone] documented as of this encounter Visit Diagnoses Diagnosis Chronic pain syndrome documented in this encounter Care Teams Staff Air Tactical Officer Relationship Specialty Start Date End Date Pretty Molina MD [address] [place] [phone] PCP - General Family Medicine 12/24/20 documented as of this encounter
--- OUTSIDE RECORDS SUMMARY | 2024-08-07 17:51 | XMS_ITS | Encounter Summary ---
Author Organization [employer] Address 75 [facility] 7t [place] [address] Care Team Providers Care Cage Operator Name Role Phone Pretty Molina MD Primary Care Provide r Reason for Visit * Reason Comments Med Refill Encounter Details Date Type Department Care Team (Late st Contact Info) Description 05/09/[address] [facility] MEDICINE [address] [place], [place] [phone] Pretty Molina MD [address] [place], [place] [phone] Other chronic pain Social History Tobacco Use [...] Description 10/04/2024 1:00 PM EDT Clinical Support [facility] MEDICINE [address] [place] [phone] Sandra Boyd RN 10/10/2024 10:30 AM EDT Office Visit [facility]INE [address] [place] [phone] Pretty Molina MD [address] [place] [phone] documented as of this encounter Visit Diagnoses Diagnosis Other chronic pain documented in this encounter Additional Health Concerns Assessment Noted Time PHQ-9 Depression Total Score: 12 023 3:08 PM EDT documented as of this encounter Care Teams Cage Operator Relationship Specialty Start Date End Date Pretty Molina MD [address] [place] [phone] PCP - General Family Medicine 12/24/20 documented as of this encounter
--- OUTSIDE RECORDS SUMMARY | 2024-08-07 17:51 | XMS_ITS | Encounter Summary ---
Author Organization [employer] Address 75 [facility] 7t [place] [address] Care Team Providers Care E Business Specialist Name Role Phone Pretty Molina MD Primary Care Provide r Reason for Visit * Reason Comments Med Refill Encounter Details Date Type Department Care Team ([facility] st Contact Info) Description 03/23/[address] [facility]EDS [address] [place] [address] Pretty Molina MD [address] [place] [address] Neuropathy Social History Tobacco Use Types Packs/Day [...] [facility] MEDICINE [address] [place] [phone] Sandra Boyd RN 10/10/2024 10:30 AM EDT Office Visit [facility] MEDICINE [address] [place] [phone] Pretty Molina MD [address] [place] [phone] documented as of this encounter Visit Diagnoses Diagnosis Neuropathy Mononeuritis of unspecified site documented in this encounter Additional Health Concerns Assessment Noted Time PHQ-9 Depression Total Score: 12 023 3:08 PM EDT documented as of this encounter Care Teams E Business Specialist Relationship Specialty Start Date End Date Pretty Molina MD [address] [place] [phone] PCP - General Family Medicine 12/24/20 documented as of this encounter
--- OUTSIDE RECORDS SUMMARY | 2024-08-07 17:51 | XMS_ITS | Encounter Summary ---
Author Organization [employer] Address [address] [facility] 7t [place] [address] Care Team Providers Care Can Feeder Name Role Phone Pretty Molina MD Primary Care Provide r Reason for Visit * Reason Comments Med Refill Encounter Details Date Type Department Care Team (Late st Contact Info) Description 07/18/2024 Refill [facility] [address] [place] [address] Pretty Molina MD 230 [place] [address] Dry eye syndrome of bilateral lacrimal glands [...] Description 10/04/2024 1:00 PM EDT Clinical Support [facility] [address] [place] [phone] Sandra Boyd RN 10/10/2024 10:30 AM EDT Office Visit [facility] [address] [place] [phone] Pretty Molina MD [address] [place] [phone] documented as of this encounter Visit Diagnoses Diagnosis Dry eye syndrome of bilateral lacrimal glands documented in this encounter Additional Health Concerns Assessment Noted Time PHQ-9 Depression Total Score: 4 01/06/20 24 2:22 PM EDT documented as of this encounter Care Teams Can Feeder Relationship Specialty Start Date End Date Pretty Molina MD [address] [place] [phone] PCP - General Family Medicine 12/24/20 documented as of this encounter
--- OUTSIDE RECORDS SUMMARY | 2024-08-07 17:51 | XMS_ITS | Encounter Summary ---
Author Organization [employer] Address [address] [place] [address] 7t [place] [address] Care Team Providers Care Correctional Probation Officer Name Role Phone Pretty Molina MD Primary Care Provide r Reason for Visit * Reason Comments Med Refill Encounter Details Date Type Department Care Team (Late st Contact Info) Description 02/28/2023 Refill [facility] MED[facility]INE [address] [place] [address] [phone] Pretty Molina MD [address] [place] [address] Social History Tobacco Use Types Packs/Day Years [...] Description 10/04/2024 1:00 PM EDT Clinical Support [facility] MED[facility]INE [address] [place] [address] [phone] Sandra Boyd RN 10/10/2024 10:30 AM EDT Office Visit [facility] [address] [place] [phone] Pretty Molina MD [address] [place], [place] [phone] documented as of this encounter Visit Diagnoses Not on filedocumented in this encounter Additional Health Concerns Assessment Noted Time PHQ-9 Depression Total Score: 12 11/24/ 023 3:08 PM EDT documented as of this encounter Care Teams Correctional Probation Officer Relationship Specialty Start Date End Date Pretty Molina MD [address] [place] [address] PCP - General Family Medicine 12/24/20 documented as of this encounter
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
--- OUTSIDE RECORDS SUMMARY | 2024-08-07 17:51 | XMS_ITS | Encounter Summary ---
Author Organization [employer] Address [address] [facility] 7t [place] [address] Care Team Providers Care Typesetting Machine Tender Name Role Phone Pretty Molina MD Primary Care Provide r Encounter Details Date Type Department Care Team (Latest Contact Info) Description 04/21/2020 Abstract [facility] Dental, Provider, DDS Social History [...] Description 10/04/2024 1:00 PM EDT Clinical Support [facility] [address] [place] [phone] Sandra Boyd RN 10/10/2024 10:30 AM EDT Office Visit [facility] [address] [place] [phone] Pretty Molina MD 230 [place] [address] documented as of this encounter Visit Diagnoses Not on filedocumented in this encounter Care Teams Typesetting Machine Tender Relationship Specialty Start Date End Date Pretty Molina MD [address] [place] [phone] PCP - General Family Medicine 7/14/21 documented as of this encounter
--- OUTSIDE RECORDS SUMMARY | 2024-08-07 17:51 | XMS_ITS | Encounter Summary ---
Author Organization [employer] Address [address] [facility] 7t [place] [address] Care Team Providers Care Evp Business Development Name Role Phone Pretty Molina MD Primary Care Provide r Reason for Visit * Reason Comments Med Refill Encounter Details Date Type Department Care Team (Late st Contact Info) Description 07/30/2024 Refill [facility] 230 [place], [place] [phone] Pretty Molina MD 230 [place] [address] Type 2 diabetes mellitus with hyperglycemia, without long-term current use of insulin ([facility]) Social [...] Description 10/04/2024 1:00 PM EDT Clinical Support [facility] [address] [place] [phone] Sandra Boyd RN 10/10/2024 10:30 AM EDT Office Visit [address] [phone] Pretty Molina MD [address] [place] [phone] documented as of this encounter Visit Diagnoses Diagnosis Type 2 diabetes mellitus with hyperglycemia, without long-term current use of insulin ([facility]) documented in this encounter Additional Health Concerns Assessment Noted Time PHQ-9 Depression Total Score: 4 01/06/20 24 2:22 PM EDT documented as of this encounter Care Teams Evp Business Development Relationship Specialty Start Date End Date Pretty Molina MD [address] [place] [phone] PCP - General Family Medicine 12/24/20 documented as of this encounter
--- OUTSIDE RECORDS SUMMARY | 2024-08-07 17:51 | XMS_ITS | Encounter Summary ---
Author Organization [employer] Address [address] [facility] 7t [place] [address] Care Team Providers Care Manager Intermediate Name Role Phone Pretty Molina MD Primary Care Provide r Reason for Visit * Reason Comments Med Refill Encounter Details Date Type Department Care Team (Late st Contact Info) Description 05/10/2023 Refill [facility] MEDICINE 230 [place], [place] [phone] Pretty Molina MD 230 [place], [place] [phone] Other chronic pain Social History Tobacco Use [...] EDT Clinical Support [facility] MEDICINE [address] [place] [phone] Sandra Boyd RN 10/10/2024 10:30 AM EDT Office Visit [facility] [address] [place] [phone] Pretty Molina MD [address] [place] [phone] documented as of this encounter Visit Diagnoses Diagnosis Other chronic pain documented in this encounter Additional Health Concerns Assessment Noted Time PHQ-9 Depression Total Score: 12 023 3:08 PM EDT documented as of this encounter Care Teams Manager Intermediate Relationship Specialty Start Date End Date Pretty Molina MD [address] [place] [phone] PCP - General Family Medicine 12/24/20 documented as of this encounter
--- OUTSIDE RECORDS SUMMARY | 2024-08-07 17:51 | XMS_ITS | Encounter Summary ---
Author Organization [employer] Address [address] [facility] 7t [place] [address] Care Team Providers Care Die Casting Machine Maintainer Name Role Phone Pretty Molina MD Primary Care Provide r Reason for Visit * Reason Comments Med Refill Encounter Details Date Type Department Care Team (Late st Contact Info) Description 07/27/2024 Refill [facility] 230 [place] [phone] Pretty Molina MD 230 [place] [address] Social History Tobacco Use Types Packs/Day Years [...] Description 10/04/2024 1:00 PM EDT Clinical Support [facility] [address] [place] [phone] Sandra Boyd RN 10/10/2024 10:30 AM EDT Office Visit [facility] [address] [place] [phone] Pretty Molina MD [address] [place] [phone] documented as of this encounter Visit Diagnoses Not on filedocumented in this encounter Additional Health Concerns Assessment Noted Time PHQ-9 Depression Total Score: 4 01/06/20 24 2:22 PM EDT documented as of this encounter Care Teams Die Casting Machine Maintainer Relationship Specialty Start Date End Date Pretty Molina MD [address] [place] [phone] PCP - General Family Medicine 12/24/20 documented as of this encounter
--- OUTSIDE RECORDS SUMMARY | 2024-08-07 17:51 | XMS_ITS | Encounter Summary ---
Author Organization [employer] Address [address] [facility] 7t [place] [address] Care Team Providers Care Loom Setter Fourdrinier Name Role Phone Pretty Molina MD Primary Care Provide r Encounter Details Date Type Department Care Team ([facility] Contact Info) Description 09/01/2022 Orders Only [facility] [address] [place], [place] [phone] Jocelyn Fleming LPN Social History Tobacco Use [...] PM EDT Clinical Support [facility] [address] [place] [phone] Sandra Boyd RN 10/10/2024 10:30 AM EDT Office Visit [facility] [address] [place] [phone] Pretty Molina MD 230 [place], [place] [phone] documented as of this encounter Visit Diagnoses Not on filedocumented in this encounter Care Teams Loom Setter Fourdrinier Relationship Specialty Start Date End Date Pretty Molina MD [address] [place] [address] PCP - General Family Medicine 12/24/20 documented as of this encounter
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
--- OUTSIDE RECORDS SUMMARY | 2024-08-07 17:51 | XMS_ITS | Clinical Summary ---
Author Organization [email or web address] Address [address] [place] [address] 7[address] [place] [address] Care Team Providers Care Grief Counsellor Name Role Phone Pretty Molina MD Primary [...] hyperglycemia, without long-term current use of insulin (CMS/[facility]) 1 kit 2 times daily. [...] hyperglycemia, without long-term current use of insulin ([facility]) Inject 1 each into the shoulder, thigh, or buttocks Once daily. 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 ([facility]) TAKE 1 TABLET BY MOUTH EVERY MORNING 90 tablet 1 024 Active omeprazole (PriLOSEC) [address] capsule TAKE 1 CAPSULE BY MOUTH EVERY MORNING 90 capsule 1 024 Active nicotine polacrilex (Nicotine Mini) [...] CONTINUAMENTE >140/90) 90 tablet 1 025 Active polyvinyl alcohol (Liquifilm Tears) 1.4 % ophthalmic solutionIndicati ons:Dry eye syndrome of bilateral lacrimal glands PLACE 1 DROP IN EACH EYE THREE TIMES DAILY IN THE MORNING, AT NOON, AND AT BEDTIME NEEDED FOR DRY EYES 15 mL 1 025 Active Aspirin Low Dose 81 MG EC tablet TAKE 1 TABLET BY MOUTH EVERYDAY AT NOON 90 tablet 3 Active metFORMIN (Glucophage) 1000 MG tablet TAKE 1 TABLET BY MOUTH TWICE DAILY IN THE MORNING AND IN THE EVENING WITH FOOD 180 tablet 3 025 Active Alcohol Swabs (Alcohol Prep) 70 % pads TEST BLOOD SUGAR THREE TIMES DAILY 100 each 11 Active Trulicity 1.5 MG/0.5ML solution auto-injectorInd ications:Type 2 diabetes mellitus with hyperglycemia, without long-term current use of insulin (CMS/HCC) INJECT ONE PEN (=1.5MG) SUBCUTANEOUSLY ONCE A WEEK DIRECTED 2 mL 1 025 Active oxyCODONE-acetam inophen (Percocet) 5-325 MG tabletIndication s:Other chronic pain Take 1 tablet by mouth every 12 (twelve) hours if needed for severe pain for up to 28 days. Do not start before August 07, 2024. 56 tablet 025 2024 Active Alcohol Swabs (Alcohol Prep) 70 % pads USE FOR TEST BLOOD SUGAR THREE TIMES DAILY 100 each 11 024 2024 Discontinued metFORMIN (Glucophage) 1000 MG tablet TAKE 1 TABLET BY MOUTH TWICE DAILY IN THE MORNING AND IN THE EVENING WITH FOOD 180 tablet 3 024 2024 Discontinued Aspirin Low Dose 81 MG EC tablet TAKE 1 TABLET BY MOUTH EVERYDAY AT NOON 90 tablet 3 024 2024 Discontinued polyvinyl alcohol (Liquifilm Tears) 1.4 % ophthalmic solutionIndicati ons:Dry eye syndrome of bilateral lacrimal glands INSTILL 1 DROP IN EACH EYE THREE TIMES DAILY IN THE MORNING, AT NOON, AND AT BEDTIME NEEDED FOR DRY EYES 15 mL 1 024 2024 Discontinued Dulaglutide 1.5 MG/0.5ML solution auto-injectorInd ications:Type 2 diabetes mellitus with hyperglycemia, without long-term current use of insulin (CMS/HCC) Inject 0.5 mL (1.5 mg) under the skin 1 (one) time per week. 0.5 mL 1 024 2024 Discontinued oxyCODONE-acetam inophen (Percocet) 5-325 MG tabletIndication s:Other chronic pain Take 1 tablet by mouth every 12 (twelve) hours if needed for severe pain for up to 28 days. 56 tablet 024 2024 Discontinued(R eorder (will not trigger notification to Pharmacy)) oxyCODONE-acetam inophen (Percocet) 5-325 MG tabletIndication s:Other chronic pain Take 1 tablet by mouth every 12 (twelve) hours if needed for severe pain for up to 28 days. 56 tablet 025 2024 Discontinued(R eorder (will not trigger notification [...] Encounters Date Type Department Care Team Description 08/06/2024 Refill [facility] [address] [place] [address] Pretty Molina MD Other chronic pain 08/02/2024 Patient Outreach [facility] [address] [place] [address] Pretty Molina MD Care Coordination (SDOH) 08/02/2024 Patient Outreach [facility] [address] [place] [address] Pretty Molina MD Care Coordination ([facility]) 07/30/2024 Refill [facility] [address] [place] [address] Pretty Molina MD Type 2 diabetes mellitus with hyperglycemia, without long-term current use of insulin ([facility]) 07/27/2024 Patient Outreach [facility] [address] [place] [address] Pretty Molina MD Care Coordination (SDND) 07/27/2024 Refill [facility] [address] [place] [address] Pretty Molina MD 07/20/2024 Orders Only GENERIC EXTERNAL DATA DEPARTMENT Provider, Generic External Data 07/19/2024 Refill [facility] [address] [place] [address] Pretty Molina MD 07/18/2024 Orders Only GENERIC EXTERNAL DATA DEPARTMENT Provider, Generic External Data 07/18/2024 Refill [facility] [address] [place] [address] Pretty Molina MD Dry eye syndrome of bilateral lacrimal glands 07/09/2024 Refill [facility] [address] [place] [address] Pretty Molina MD Other chronic pain 07/01/2024 Refill [facility] [address] [place] [address] Cristian Brinoes CNM 06/25/2024 Refill [facility] [address], [place] [phone] Pretty Molina MD Primary hypertension 06/20/2024 Refill [facility] [address] [place] [address] Noemi Schwartz MD Seasonal allergies 06/16/2024 Refill [facility] [address] [place] [address] Pretty Molina MD Neuropathy 06/11/2024 2:00 PM EST Office Visit [address] [address] Pretty Molina MD Chronic cough (Primary Dx); Type 2 diabetes mellitus with hyperglycemia, without long-term current use of insulin (CMS/HCC); Encounter for screening mammogram for malignant neoplasm of breast; Tobacco dependence; Encounter for preventive care 06/11/2024 Travel 06/08/[address] [address] Vicki Ghosh MA Chart Prep 06/07/[address] [address] Mauro Frye MA DME from [facility] 06/06/2024 Refill [facility] [address] [place] [address] Pretty Molina MD Type 2 diabetes mellitus with hyperglycemia, without long-term current use of insulin (CMS/HCC) 06/05/2024 10:30 AM EST Clinical Support [address] [address] Sandra Boyd, RN Other chronic pain (Primary Dx) 06/05/[address] [address] Sandra Boyd, RN Other chronic pain 06/05/[address] [address] Pretty Molina MD Type 2 diabetes mellitus with hyperglycemia, without long-term current use of insulin ([facility]/HCC) 06/05/2024 Travel 06/05/[address] [address] Sandra Boyd, RN 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 05/30/2024 Patient Outreach [address] [address] Pretty Molina MD Pre-visit Planning (SDOH screening completed on 12/28/2023) 05/25/[address] [address] Mauro Frye MA DME from [facility] 05/22/2024 Refill [facility] [address] [place] [address] Pretty Molina MD 05/20/2024 Refill [facility] [address], [place] [phone] Pretty Molina MD Type 2 diabetes mellitus with other specified complication, unspecified whether nursing home insulin use ([facility]) 05/16/2024 Refill [facility] [address], [place] [phone] Pretty Molina MD 05/08/2024 Telephone [facility] [address], [place] [phone] Pretty Molina MD Med Refill 05/07/2024 Refill [facility] [address], [place] [phone] Pretty Molina MD Other chronic pain from Last 3 Months Immunizations Name Administration [...] Description 10/04/2024 1:00 PM EDT Clinical Support [facility] [address] [place] [address] Sandra Boyd RN 10/10/2024 10:30 AM EDT Office Visit [facility] [address] [place] [address] Pretty Molina MD [address] [place], [place] [phone] Health Maintenance Due Date Last Done Comments [...] COVID-19 Vaccine ( season) 2024 10/30/2020, 10/02/2020 Diabetes: Hemoglobin A1C 10/04/2024 024, 01/06/2024, 05/30/2023, Additional history exists SDOH Screening 12/27/2024 12/28/2023 Depression Screening 01/05/2025 01/06/2024, 01/06/20 24 Lipid Panel 01/09/2025 01/10/2024, 050 06/2022, 07/20/2021, Additional history exists Tobacco Screening 06/11/2025 06/11/2024 Mammogram 07/25/2025 07/25/2024, 1009/2022, 03/10/2022, Additional history exists DTaP/Tdap/Td Vaccines (2 - Td or Tdap) [...] Procedure Name Priority Date/Time Associated Diagnosis Comments BI MAMMOGRAM SCREENING TOMOSYNTHESIS BILATERAL Routine 07/25/2024 2:30 PM EST Encounter for screening mammogram for malignant neoplasm of breast US PELVIS TRANSVAGINAL Routine 07/21/2024 9:20 AM EST BASIC METABOLIC PANEL Routine 07/20/2024 12:01 PM EST HEMATOXYLIN AND EOSIN STAIN Routine 07/18/2024 12:02 PM EST POCT GLUCOSE Routine 06/11/2024 1:58 PM EST Type 2 diabetes mellitus with hyperglycemia, without long-term current use of insulin (CMS/HCC) POCT HECTOR-14 URINE DRUG SCREEN Routine 06/05/2024 10:01 AM EST Other chronic pain POCT GLYCATED HEMOGLOBIN, TOTAL Routine 04/05/2024 3:05 PM EDT Type 2 diabetes mellitus with hyperglycemia, without long-term current use of insulin (CMS/HCC) LIPID PANEL WITH REFLEX TO DIRECT LDL Routine 01/10/2024 8:26 AM EDT Essential hypertension HPV MRNA E6/E7 REFLEX TO HPV 16, 18/45 Routine 04/18/2023 2:08 PM EST PAP SMEAR Routine 04/18/2023 2:08 PM EST ZZZ HISTORICAL HEPATITIS C ANTIBODY Routine 02/03/2021 12:01 PM EDT from Last 3 Months or Most Recently Relevant to Health Maintenance Results * BI Mammogram Screening Tomosynthesis Bilateral (07/25/2024 2:30 PM EST) Anatomical Region Laterality Modality Breast Bilateral Mammography 07/25/2024 2:30 PM EST Narrative 08/03/2024 4:35 PM EST ? [facility] [place] ? [address] ?[place] [address] ? Mammography Report ? Signed ? Patient: Violet Pascal ?MR#: [id number] ?? [id number] ? : 1960 ?Acct:[id number] ? Age/Sex: 64 / F ?ADM Date: 07/25/ ? Loc: HO.MAMMO ? Attending Dr: Pretty Zayas MD ? Ordering Physician: Pretty Molina MD ?Results: ?? 2Benign Findings ? Date of Service: 07/25/ ?Follow Up: 1 Year From Orig ?? inal Mammogram ? Procedure(s): MM tomosynthesis screening BI ?? Accession Number(s): [id number] ? cc: Peace Zayas,Pretty HUTCHINSON ? EXAMINATION: ?? MM SCREENING DIGITAL BREAST TOMOSYNTHESIS, BILATERAL ? CLINICAL INFORMATION: ? Screening. Asymptomatic. ??Patient has bilateral skin cuellar. ? COMPARISON: ?? Mammography: Comparison is made with available priors ? TECHNIQUE: ?? Digital breast mammography with tomosynthesis is performed in both the ?? craniocaudal and mediolateral oblique views along with computer-aided ?? detection (CAD). ? FINDINGS: ?? There are scattered areas of fibroglandular density (ACR BI-RADS breast ?? composition Category b). ?? Postsurgical changes to the right breast are stable. Right benign ?? calcifications are stable. ?? There are no significant masses, abnormal calcifications, or other ?? abnormalities. ? MM/MM tomosynthesis screening BI ?? IMPRESSION: [...] due date for their next mammogram. ? Electronically signed by: ??Darlin Garcia DO ??08/03/2024 04:32 PM EST ?? RP ? Dictated By: ?Darlin Garcia DO ? Signed By: ?<Electronically signed by Darlin Garcia, DO in OV> ? 08/03/24 1632 ? DD/ 1430 ? TD/TT: 07/25/24 1446 ? Slicing Machine Tender: ? Procedure Note Karolyn, Image - 08/03/2024 [facility] [address] [place] [address] Mammography Report Signed Patient: Abraham Pascal#: [id number] : 1960cct:[id number] Age/Sex: 64 / FADM Date: 07/25/24 Loc: HO.MAMMO Attending Dr: Pretty Zayas MD Ordering Physician: Pretty Molina MDResults: 2Benign Findings Date of Service: 07/25/24Follow Up: 1 Year From Orig inal Mammogram Procedure(s): MM tomosynthesis screening BI Accession Number(s): [id number] cc: Pretty Molina MD EXAMINATION: MM SCREENING DIGITAL BREAST TOMOSYNTHESIS, BILATERAL CLINICAL INFORMATION: Screening. Asymptomatic. Patient has bilateral skin cuellar. COMPARISON: Mammography: Comparison is made with available priors TECHNIQUE: Digital breast mammography with tomosynthesis is performed in both the craniocaudal and mediolateral oblique views along with computer-aided detection (CAD). FINDINGS: There are scattered areas of fibroglandular density (ACR BI-RADS breast composition Category b). Postsurgical changes to the right breast are stable. Right benign calcifications are stable. There are no significant masses, abnormal calcifications, or other abnormalities. MM/MM tomosynthesis screening BI IMPRESSION: No mammographic evidence of malignancy. ASSESSMENT: BI-RADS BI-RADS 2 - Benign Findings RECOMMENDATION: Routine annual mammography screening. 1 year F/U This examination should not preclude the clinical evaluation of a suspicious palpable abnormality. This patient's information was entered into a reminder system with a target due date for their next mammogram. Electronically signed by: Darlin Garcia DO 08/03/2024 04:32 PM EST RP Dictated By: Darlin Garcia DO Signed By: <Electronically signed by Darlin Garcia DO in OV> 08/03/24 1632 DD/ 1430 TD/TT: 07/25/24 1446 Slicing Machine Tender: us Pretty Zayas MD IMG BI PROCEDURES Fin al Result * US Pelvis Transvaginal (07/21/2024 9:20 AM EST) Anatomical Region Laterality Modality Pelvis Ultrasound 07/21/2024 9:20 AM EST Narrative 07/21/2024 9:21 AM EST ? [facility] ?[address] ?[place] [address] ? Ultrasound Report ? Signed ? Patient: Pascal,Fredevinda ?MR#: [id number] ?? [id number] ? : 1960 ?Acct:[id number] ? Age/Sex: 64 / F ?ADM Date: 07/20/24 ? Loc: HO.US ? Attending Dr: Ramesh Gurrola MD ? Ordering Physician: Ramesh Gurrola MD ?? Date of Service: 07/20/24 ?? Procedure(s): US pelvic and transvaginal ?? Accession Number(s): [id number] ? cc: Pretty Molina MD; Ramesh Gurrola [...] signed by Eliceo David MD in OV> ?07/21/2420 ? DD/ 9 ? TD/TT: 07/21/[address] ? Slicing Machine Tender: ? Procedure Note Gila Parr - 07/21/[address] [address] Ultrasound Report Signed Patient: Abraham Pascal#: [id number] : 1Acct:[id number] Age/Sex: 64 / FADM Date: 07/20/24 Loc: HO.US Attending Dr: Ramesh Gurrola MD Ordering Physician: Ramesh Gurrola MD Date of Service: 07/20/24 Procedure(s): US pelvic and transvaginal Accession Number(s): [id number] cc: Pretty Molina MD; Ramesh Gurrola MD [...] in OV> 07/21/24919 DD/ 9 TD/TT: 07/21/24919 Slicing Machine Tender: [facility] External Provider IMG US PROCEDURES Edited Result - Final * (ABNORMAL) Basic Metabolic Panel (07/20/2024 12:01 PM EST) Sodium 137 135 - 145 mmol/L [facility] Potassium 4.2 3.3 - 5.1 mmol/L [facility] Chloride 103 96 - 108 mmol/L [facility] Carbon Dioxide 24 22 - 29 mmol/L [facility] Anion Gap 14 12 - 20 [facility] Urea Nitrogen (BUN) 18(H) 9 - 16 mg/dL [facility] Creatinine, Serum 0.75 0.5 - 1.4 mg/dL [facility] Estimated Glomerular Filt Rate >60 [facility] Comment:Chronic Kidney Disea se: Estimated GFR < 60 mL/min/1.12h4Zigwgh Kidney Disease: Estimated GFR < 15 mL/min/1.73m2 Glucose 156(H) 60 - 115 mg/dL [facility] Calcium 9.4 8.4 - 10.2 mg/dL [facility] 07/20/2024 12:0 1 PM EST 07/20/2024 12:01 PM EST us Generic External Data Provider LAB BLOOD ORDERAB LES Final Result Performing Organization Address City/State/[facility] Co de Phone Number [facility] [address] [place] [phone] * Hematoxylin and Eosin Stain (07/18/2024 12:02 PM EST) 07/18/2024 12:0 2 PM EST 07/19/2024 7:32 AM EST Narrative [facility] - 07/20/2024 11:43 AM EST ----- ------- Name: Violet Pascal ? Age/Sex: 64/F ? : 1960 Unit#: [id number] ?? Attend Dr: Ramesh Gurrola MD ?Re07/18/24 ?Status: DEP REF ? Location: HO.LNP ?Disch: ? ----- ------- SPEC : [id number] ?RECD: 07/19/24 ? STATUS: ??SOUT ? REQ NUM: [id number] ? YASMINE: 07/18/24 ? SUBM DR: Ramesh [...] Copies To: ?? Pretty Molina MD ?? [facility] ?? [address] [facility] ?? [place] [address] ?? [phone] ?? Ramesh Gurrola MD ?? [facility] ?? [address] [facility] [address] ?? [place] [address] ?? [phone] ? CONTINUED ON NEXT PAGE ----- ------- Name: Violet Pascal ? Age/Sex: 64/F ? : 1960 Unit#: [id number] ?? Attend Dr: Ramesh Gurrola MD ?Re07/18/24 ?Status: DEP REF ? Location: HO.LNP ?Disch: ? ----- ------- SPEC : [id number] ?RECD: 07/19/24-731 ? STATUS: ??SOUT ? REQ NUM: [id number] ? YASMINE: 07/18/24-1202 ? SUBM DR: Ramesh Gurrola MD ? ENTERED: ??07/19/24-735 ?SP TYPE: Surgical ? OTHR DR: Pretty Molina MD ? ORDERED: ??HE Stain/2, Gross Micro L4 ? ----- ------- Signed (signature on file) Wally Harding MD 07/20/24 1143 ? ----- ------- ? END OF REPORT ? us Generic External Data Provider LAB BLOOD ORDERAB LES Final Result [facility] [address] [place] [address] [phone] * POCT Glucose (06/11/2024 1:58 PM EST) Glucose Blood, POC 103 60 - 200 mg/dL QC Media Lot # [id number] Lot# Expiration Date ,025 Blood Capillary blood specimen / Unknown 06/11/2024 1:58 PM EST Pretty Zayas MD POINT OF CARE TEST EN TER/EDIT ORDERABLES Final Result * POCT HCETOR-14 Urine Drug Screen (06/05/2024 10:01 AM EST) Pathologist [facility] Oxycodone Screen, Urine Positive Urine Urine specimen obtained by clean catch procedure / Unknown 06/05/2024 10:01 AM EST Sandra Watt RN - 06/05/2024 10:01 AM EST UTOX cup Lot#[id number] Exp. 03/07/26 Internal Pass Control Pretty Zayas MD POINT OF CARE TEST EN TER/EDIT ORDERABLES Final Result * (ABNORMAL) POCT HGB A1C (04/05/2024 3:05 PM EDT) Pathologist [facility] Hemoglobin A1C 6.9(A) 4.0 - 6.0 % QC Media Lot # [id number] Lot# Expiration Date ,026 Blood 04/05/2024 3:05 PM EDT Pretty Zayas MD POINT OF CARE TEST EN TER/EDIT ORDERABLES Final Result * Lipid Panel with Reflex to Direct LDL (01/10/2024 8:26 AM EDT) Pathologist [facility] Triglycerides 140 <150 mg/dL [facility] Comment:Desirable Triglyceri de: less than 150 mg/dLBorderline High Triglyceride 150-199 mg/dLHigh Triglyceride: 200-499 mg/dLVery High Triglyceride: greater than or equal to 5OO mg/dL Cholesterol 155 <200 mg/dL [facility] Comment:Desirable Cholestero l: less than 200 mg/dLBorderline High Cholesterol: 200-239 mg/dLHigh Cholesterol: greater than 239 mg/dL LDL Cholesterol Calculated 80 <100 mg/dL [facility] Comment:Desirable LDL: less than 100 mg/dLNear Optimal/Above Optimal LDL: 110- 129 mg/dLBorderline High LDL: 130-159 mg/dLHigh LDL: 160-189 mg/dLVery High LDL: greater than or equal to 190 mg/dL HDL Cholesterol 47 >40 mg/dL [facility] Comment:Desirable HDL: great er than 40 mg/dL Note: This HDL assay may give artificially low results in patients with liver disease. Blood 01/10/2024 8:26 AM EDT 01/10/2024 11:20 AM EDT Pretty Zayas MD LAB BLOOD ORDERABLES Final Result [facility] [address] [place] [phone] * HPV mRNA E6/E7 w/Reflex to HPV Genotypes 16, 18/45 (04/18/2023 2:08 PM EST) HPV nRNA E6/E7 Not Detected Not Detected [facility] Comment:Methodology: Transcr iption-Mediated AmplificationThis assay detects E6/E7 viral messenger RNA (mRNA) from 14high-risk HPV types (16,18,31,33,35,39,45,51,52,56,58,59,66,68).Cervical sources are required for HPV testing.If a vaginal source from a patient who has had atotal hysterectomy with removal of cervix wassubmitted, please contact the testing laboratoryfor alternative testing options.For additional information, please refer tohttp://education.[employer]/faq/CQI773d2(This link if provided for information/educational purposes only.)THIS TEST WAS PERFORMED AT:[facility] [place] [phone] ANNE MD HPV mRNA E6/E7 TNP [facility] HPV 16 RNA TNP [facility] HPV 18/45 RNA TNP [facility] 04/18/2023 2:08 PM EST 04/19/2023 8:20 AM EST Cristian Briones CNM LAB CYTOLOGY ORDERABLES F inal Result [facility] [address] [place] [phone] * Pap Smear (04/18/2023 2:08 PM EST) 04/18/2023 2:08 PM EST 04/19/2023 8:20 AM EST Narrative [facility] - 04/26/2023 1:40 PM EST ----- ------- Name: Violet Pascal ? Age/Sex: 63/F ? : 1960 Unit#: [id number] ?? Attend Dr: CRISTIAN BRIONES CNM ?Re04/18/23 ?Status: DEP REF ? Location: HO.HHCLNP ? Disch: ? ----- ------- SPEC : [id number] ?RECD: 04/19/23 ? STATUS: ??SOUT ? REQ NUM: [id number] ? YASMINE: 04/18/23 ? SUBM DR: CRISTIAN [...] 66, 68) ?? HPV testing performed by [employer], [place], [place]. ??See reference laboratory ?? pion of the EMR for entire report. ?Clinical Information LMP: Postmenopausal Previous PAP test: Unknown date/findings ? Material Received ?? ThinPrep-Cervical ----- ------- Signed (signature on file) MARIOLA Walkre ([facility]) 04/26/23 1340 ? ----- ------- ? END OF REPORT ? us Cristian Briones [facility] CYTOLOGY ORDERABLES F inal Result [facility] [address] [place] [phone] * Hepatitis C Antibody (02/03/2021 12:01 PM EDT) [facility] Hepatitis C Antibody Nonreactive Nonreactive [facility] Comment: Antibodies to HCV not detected; does not exclude early acute HCV infection. HIV AB/AG Nonreactive Nonreactive [facility] Comment: HIV-1 p24 Ag and/or [...] detection of this assay. ?? The [employer] HIV Ag/Ab Combo assay result and supplemental assay results should be interpreted in conjunction with the patient's clinical presentation, history and other laboratory results. ??If the results are inconsistent with clinical evidence, additional testing is suggested to confirm the result. Hepatitis B Surface Antigen Negative Negative [facility] 02/03/2021 12:0 1 PM EDT us Ramesh Gurrola MD HISTORICAL/NON ORDERABLE LABS Fi nal Result [facility] [address] from Last 3 Months or Most Recently Relevant to Health Maintenance [facility] Care Teams Grief Counsellor Relationship Specialty Start Date End Date Pretty Molina MD [address] [place] [address] PCP - General Family Medicine 12/24/20
--- OUTSIDE RECORDS SUMMARY | 2024-08-07 17:51 | XMS_ITS | Encounter Summary ---
Author Organization [employer] Address 75 [facility] 7t [place] [address] Care Team Providers Care Gradall Operator Name Role Phone Pretty Molina MD Primary Care Provide r Reason for Visit * Reason Comments Care Coordination SDOH Encounter Details Date Type Department Care Team (Latest Contact Info) Description 07/27/2024 Patient Outreach [facility] [address] [place] [address] Pretty Molina MD 230 [place] [address] Care Coordination (SDOH) Social History Tobacco Use [...] encounter Progress Notes * Mercedez Montano - 07/27/2024 11:27 AM EST CHW Mercedez Montano, placed outbound call to patient in regard to offer SDOH services. No answer at this time. CHW LVM introducing herself from [facility] CM Department with CHW's name, department and direct contact number requesting call back. Will re-attempt to contact within 5 days. and address not confirmed. documented in this encounter Plan of Treatment Upcoming Encounters Date Type Department Care Team (Late st Contact Info) Description 10/04/2024 1:00 PM EDT Clinical Support [facility] [address] [place] [phone] Sandra Boyd RN 10/10/2024 10:30 AM EDT Office Visit [facility] [address] [place] [address] Pretty Molina MD 230 [place] [address] documented as of this encounter Visit Diagnoses Not on filedocumented in this encounter Additional Health Concerns Assessment Noted Time PHQ-9 Depression Total Score: 4 01/06/20 24 2:22 PM EDT documented as of this encounter Care Teams Gradall Operator Relationship Specialty Start Date End Date Pretty Molina MD 230 [place] [address] PCP - General Family Medicine 12/24/20 documented as of this encounter
--- OUTSIDE RECORDS SUMMARY | 2024-08-07 17:51 | XMS_ITS | Encounter Summary ---
Author Organization [employer] Address 75 [facility] 7t [place] [address] Care Team Providers Care Cognos Architect Name Role Phone Pretty Molina MD Primary Care Provide r Encounter Details Date Type Department Care Team (Late st Contact Info) Description 07/01/2022 Orders Only [facility] [address] [place] [address] Marti Cedillo RN Chronically on opiate therapy [...] Description 10/04/2024 1:00 PM EDT Clinical Support [address] [address] Sandra Boyd RN 10/10/2024 10:30 AM EDT Office Visit [address] [address] Pretty Molina MD [address] [place] [address] documented as of this encounter Visit Diagnoses Diagnosis Chronically on opiate therapy- Primary documented in this encounter Care Teams Cognos Architect Relationship Specialty Start Date End Date Pretty Molina MD 230 [place] [address] PCP - General Family Medicine 12/24/20 documented as of this encounter
--- OUTSIDE RECORDS SUMMARY | 2024-08-07 17:51 | XMS_ITS | Encounter Summary ---
Author Organization [employer] Address 75 [facility] 7 [place] [address] Care Team Providers Care Asbestos Hazard Abatement Worker Name Role Phone Pretty Molina MD Primary Care Provide r Reason for Visit * Reason Onset Date Comments Med Refill 01/05/2023 Encounter Details Date Type Department Care Team (Late st Contact Info) Description 01/05/2023 Telephone [facility] 230 [place] [address] Pretty Molina MD 230 [place] [address] Med Refill Social History Tobacco Use Types [...] Description 10/04/2024 1:00 PM EDT Clinical Support [address] [address] Sandra Boyd, RN 10/10/2024 10:30 AM EDT Office Visit [facility] [address] [place] [address] Pretty Molina MD [address] [place] [address] documented as of this encounter Visit Diagnoses Not on filedocumented in this encounter Additional Health Concerns Assessment Noted Time PHQ-9 Depression Total Score: 12 11/24/ 023 3:08 PM EDT documented as of this encounter Care Teams Asbestos Hazard Abatement Worker Relationship Specialty Start Date End Date Pretty Molina MD [address] [place] [address] PCP - General Family Medicine 12/24/20 documented as of this encounter
--- OUTSIDE RECORDS SUMMARY | 2024-08-07 17:51 | XMS_ITS | Encounter Summary ---
Author Organization [employer] Address 75 [facility] 7t [place] [address] Care Team Providers Care Brush Or Broom Cutter Name Role Phone Pretty Molina MD Primary Care Provide r Reason for Visit * Reason Comments Med Refill Encounter Details Date Type Department Care Team (Late st Contact Info) Description 07/05/2023 Refill [facility] MED & PEDS [address] [place], [place] [phone] Pretty Molina MD 230 [place] [address] Social History Tobacco Use Types Packs/Day Years [...] 10/04/2024 1:00 PM EDT Clinical Support [facility] [address] [place] [address] Sandra Boyd RN 10/10/2024 10:30 AM EDT Office Visit [facility] [address] [place] [address] Pretty Moilna MD [address] [place] [address] documented as of this encounter Visit Diagnoses Not on filedocumented in this encounter Additional Health Concerns Assessment Noted Time PHQ-9 Depression Total Score: 12 023 3:08 PM EDT documented as of this encounter Care Teams Brush Or Broom Cutter Relationship Specialty Start Date End Date Pretty Molina MD [address] [place] [address] PCP - General Family Medicine 12/24/20 documented as of this encounter
--- OUTSIDE RECORDS SUMMARY | 2024-08-07 17:51 | XMS_ITS | Encounter Summary ---
Author Organization [employer] Address 75 [facility] 7t [place] [address] Care Team Providers Care Urologist Md Name Role Phone Pretty Molina MD Primary Care Provide r Reason for Visit * Reason Comments Med Refill Encounter Details Date Type Department Care Team (Late st Contact Info) Description 07/01/2024 Refill [facility] 230 [place] [address] Keysha Nagel, ERIC 230 [place] [address] Social History Tobacco Use Types Packs/Day Years [...] 10/04/2024 1:00 PM EDT Clinical Support [facility] [address] [place] [address] Sandra Boyd RN 10/10/2024 10:30 AM EDT Office Visit [facility] [address] [place] [address] Pretty Molina MD [address] [place] [address] documented as of this encounter Visit Diagnoses Not on filedocumented in this encounter Additional Health Concerns Assessment Noted Time PHQ-9 Depression Total Score: 4 01/06/20 24 2:22 PM EDT documented as of this encounter Care Teams Urologist Md Relationship Specialty Start Date End Date Pretty Molina MD [address] [place] [address] PCP - General Family Medicine 12/24/20 documented as of this encounter
--- OUTSIDE RECORDS SUMMARY | 2024-08-07 17:51 | XMS_ITS | Encounter Summary ---
Author Organization [employer] Address 75 [facility] 7 [place] [address] Care Team Providers Care Dispatcher Refinery Name Role Phone Pretty Molina MD Primary Care Provide r Reason for Visit * Reason Onset Date Comments Med Refill 06/10/2022 Encounter Details Date Type Department Care Team (Late st Contact Info) Description 06/10/2022 Refill [facility] 230 [place], [place] [phone] Pretty Molina MD 230 [place], [place] [phone] Social History Tobacco Use Types Packs/Day Years [...] Description 10/04/2024 1:00 PM EDT Clinical Support [facility] 230 [place], [place] [phone] Sandra Boyd RN 10/10/2024 10:30 AM EDT Office Visit [facility] 230 [place], [place] [phone] Pretty Molina MD [address] [place] [address] documented as of this encounter Visit Diagnoses Not on filedocumented in this encounter Care Teams Dispatcher Refinery Relationship Specialty Start Date End Date Pretty Molina MD [address] [place] [address] PCP - General Family Medicine 12/24/20 documented as of this encounter
--- OUTSIDE RECORDS SUMMARY | 2024-08-07 17:51 | XMS_ITS | Encounter Summary ---
Author Organization [employer] Address 75 [facility] 7t [place] [address] Care Team Providers Care Pulling Unit Operator Name Role Phone Pretty Molina MD Primary Care Provide r Reason for Visit * Reason Comments Med Refill Encounter Details Date Type Department Care Team ([facility] st Contact Info) Description 05/12/2023 Refill [facility] MED & PEDS 505 [place], [place] [phone] Pretty Molina MD 230 [place] [address] Neuropathy Social History Tobacco Use Types Packs/Day [...] Description 10/04/2024 1:00 PM EDT Clinical Support [facility] [address] [place] [address] Sandra Boyd RN 10/10/2024 10:30 AM EDT Office Visit [facility] [address] [place] [phone] Pretty Molina MD [address] [place] [address] documented as of this encounter Visit Diagnoses Diagnosis Neuropathy Mononeuritis of unspecified site documented in this encounter Additional Health Concerns Assessment Noted Time PHQ-9 Depression Total Score: 12 023 3:08 PM EDT documented as of this encounter Care Teams Pulling Unit Operator Relationship Specialty Start Date End Date Pretty Molina MD [address] [place] [address] PCP - General Family Medicine 12/24/20 documented as of this encounter
--- OUTSIDE RECORDS SUMMARY | 2024-08-07 17:51 | XMS_ITS | Encounter Summary ---
Author Organization [employer] Address 75 [facility] 7t [place] [address] Care Team Providers Care Master Esthetician Name Role Phone Pretty Mloina MD Primary Care Provide r Reason for Visit * Reason Comments Med Refill Encounter Details Date Type Department Care Team (Late st Contact Info) Description 03/30/2023 Refill [facility] 230 [place], [place] [phone] Pretty Molina MD 230 [place] [address] Other chronic pain Social History Tobacco Use [...] EDT Clinical Support [facility] [address] [place] [phone] Sandra Boyd RN 10/10/2024 10:30 AM EDT Office Visit [facility] [address] [place] [address] Pretty Molina MD [address] [place] [address] documented as of this encounter Visit Diagnoses Diagnosis Other chronic pain documented in this encounter Additional Health Concerns Assessment Noted Time PHQ-9 Depression Total Score: 12 023 3:08 PM EDT documented as of this encounter Care Teams Master Esthetician Relationship Specialty Start Date End Date Pretty Molina MD [address] [place] [address] PCP - General Family Medicine 12/24/20 documented as of this encounter
--- OUTSIDE RECORDS SUMMARY | 2024-08-07 17:51 | XMS_ITS | Encounter Summary ---
Author Organization [employer] Address 75 [facility] 7t [place] [address] Care Team Providers Care Rail Car Loader Name Role Phone Pretty Molina MD Primary Care Provide r Reason for Visit * Reason Comments Med Refill Encounter Details Date Type Department Care Team (Late st Contact Info) Description 05/02/2023 Refill [facility] 230 [place] [address] Jocelyn Bender DO 230 [place] [address] Seasonal allergic rhinitis, unspecified trigger Social History [...] 10/04/2024 1:00 PM EDT Clinical Support [facility] [address] [place] [address] Sandra Boyd RN 10/10/2024 10:30 AM EDT Office Visit [facility] [address] [place] [phone] Pretty Molina MD [address] [place] [address] documented as of this encounter Visit Diagnoses Diagnosis Seasonal allergic rhinitis, unspecified trigger documented in this encounter Additional Health Concerns Assessment Noted Time PHQ-9 Depression Total Score: 12 023 3:08 PM EDT documented as of this encounter Care Teams Rail Car Loader Relationship Specialty Start Date End Date Pretty Molina MD [address] [place] [address] PCP - General Family Medicine 12/24/20 documented as of this encounter
--- OUTSIDE RECORDS SUMMARY | 2024-08-07 17:51 | XMS_ITS | Encounter Summary ---
Author Organization [employer] Address 75 [facility] 7t [place] [address] Care Team Providers Care Hand Filer Balance Wheel Name Role Phone Pretty Molina MD Primary Care Provide r Encounter Details Date Type Department Care Team (Latest Contact Info) Description 05/31/2019 Abstract [facility] CONVERSIONS Dental, Provider, DDS Social History [...] 1:00 PM EDT Clinical Support [facility] MED[facility]INE [address] [place] [address] Sandra Boyd RN 10/10/2024 10:30 AM EDT Office Visit [facility] [address] [place] [address] Pretty Molina MD 230 [place] [address] documented as of this encounter Visit Diagnoses Not on filedocumented in this encounter Care Teams Hand Filer Balance Wheel Relationship Specialty Start Date End Date Pretty Molina MD [address] [place] [address] PCP - General Family Medicine 7/14/21 documented as of this encounter
--- OUTSIDE RECORDS SUMMARY | 2024-08-07 17:51 | XMS_ITS | Encounter Summary ---
Author Organization [employer] Address 75 [facility] 7t [place] [address] Care Team Providers Care Batch Analyst Name Role Phone Pretty Molina MD Primary Care Provide r Reason for Visit * Reason Onset Date Comments Med Refill 07/09/2024 Encounter Details Date Type Department Care Team (Late st Contact Info) Description 07/09/2024 Refill [facility] 230 [place] [address] Pretty Molina MD 230 [place] [address] Other chronic pain Social History Tobacco Use [...] 5-325 MG tablet To be sent to: [facility] - [place], [place] - [address] [place] [address] documented in this encounter Plan of Treatment Upcoming Encounters Date Type Department Care Team ([facility] st Contact Info) Description 10/04/2024 1:00 PM EDT Clinical Support [facility]INE [address] [place] [address] Sandra Boyd RN 10/10/2024 10:30 AM EDT Office Visit [facility] [address] [place] [phone] Pretty Molina MD [address] [place] [address] documented as of this encounter Visit Diagnoses Diagnosis Other chronic pain documented in this encounter Additional Health Concerns Assessment Noted Time PHQ-9 Depression Total Score: 4 01/06/20 24 2:22 PM EDT documented as of this encounter Care Teams Batch Analyst Relationship Specialty Start Date End Date Pretty Molina MD 230 [place] [address] PCP - General Family Medicine 12/24/20 documented as of this encounter
--- OUTSIDE RECORDS SUMMARY | 2024-08-07 17:51 | XMS_ITS | Encounter Summary ---
Author Organization [employer] Address 75 [facility] 7t [place] [address] Care Team Providers Care Rail Setter Name Role Phone Pretty Molina MD Primary Care Provide r Encounter Details Date Type Department Care Team (Late st Contact Info) Description 07/12/2022 Orders Only [facility] MED & PEDS 505 [place] [address] Jocelyn Fleming LPN Social History Tobacco Use [...] Description 10/04/2024 1:00 PM EDT Clinical Support [facility]INE [address] [place] [address] Sandra Boyd RN 10/10/2024 10:30 AM EDT Office Visit [facility] [address] [place] [address] Pretty Molina MD 230 [place] [address] documented as of this encounter Visit Diagnoses Not on filedocumented in this encounter Care Teams Rail Setter Relationship Specialty Start Date End Date Pretty Molina MD [address] [place] [address] PCP - General Family Medicine 12/24/20 documented as of this encounter
--- OUTSIDE RECORDS SUMMARY | 2024-08-07 17:51 | XMS_ITS | Encounter Summary ---
Author Organization [employer] Address 75 [facility] 7t [place] [address] Care Team Providers Care Hand Slitter Name Role Phone Pretty Molina MD Primary Care Provide r Reason for Visit * Reason Comments Med Refill Encounter Details Date Type Department Care Team (Late st Contact Info) Description 06/06/2024 Refill [facility] MED & PEDS 505 [place] [address] Pretty Molina MD 230 [place] [address] Type 2 diabetes mellitus with hyperglycemia, without long-term current use of insulin ([facility]) Social History Tobacco Use Types Packs/Day Years [...] Description 10/04/2024 1:00 PM EDT Clinical Support [facility]INE [address] [place] [phone] Sandra Boyd RN 10/10/2024 10:30 AM EDT Office Visit [facility] [address] [place] [phone] Pretty Molina MD [address] [place] [address] documented as of this encounter Visit Diagnoses Diagnosis Type 2 diabetes mellitus with hyperglycemia, without long-term current use of insulin ([facility]) documented in this encounter Additional Health Concerns Assessment Noted Time PHQ-9 Depression Total Score: 4 01/06/20 24 2:22 PM EDT documented as of this encounter Care Teams Hand Slitter Relationship Specialty Start Date End Date Pretty Molina MD [address] [place] [address] PCP - General Family Medicine 12/24/20 documented as of this encounter
--- OUTSIDE RECORDS SUMMARY | 2024-08-07 17:51 | XMS_ITS | Encounter Summary ---
Author Organization [employer] Address 75 [facility] 7t [place] [address] Care Team Providers Care Horticultural Specialty Grower Field Name Role Phone Pretty Molina MD Primary Care Provide r Reason for Visit * Reason Comments Care Coordination SDOH Encounter Details Date Type Department Care Team (Latest Contact Info) Description 08/02/2024 Patient Outreach [facility]ICINE 230 [place] [address] Pretty Molina MD 230 [place] [address] Care Coordination (SDOH) Social History Tobacco Use [...] Progress Notes * Mercedez Montano - 08/02/2024 10:17 AM EST CHW Mercedez Montano, placed outbound call to patient in regard to offer SDOH services. No answer at this time. CHW LVM introducing herself from [facility] CM Department with CHW's name, department and direct contact number requesting call back. Will re-attempt to contact within 5 days. and address not confirmed. documented in this encounter Plan of Treatment Upcoming Encounters Date Type Department Care Team ([facility] st Contact Info) Description 10/04/2024 1:00 PM EDT Clinical Support [facility] MEDICINE [address] [place] [address] Sandra Boyd RN 10/10/2024 10:30 AM EDT Office Visit [facility] MEDICINE [address] [place] [address] Pretty Molina MD 230 [place] [address] documented as of this encounter Visit Diagnoses Not on filedocumented in this encounter Additional Health Concerns Assessment Noted Time PHQ-9 Depression Total Score: 4 01/06/20 2:22 PM EDT documented as of this encounter Care Teams Horticultural Specialty Grower Field Relationship Specialty Start Date End Date Pretty Molina MD 230 [place] [address] PCP - General Family Medicine 12/24/20 documented as of this encounter
--- OUTSIDE RECORDS SUMMARY | 2024-08-07 17:51 | XMS_ITS | Encounter Summary ---
Author Organization [employer] Address 75 [facility] 7t [place] [address] Care Team Providers Care Surtass Analyst Name Role Phone Pretty Molina MD Primary Care Provide r Encounter Details Date Type Department Care Team (Latest Contact Info) Description 2019 Abstract [facility] CONVERSIONS Dental, Provider, DDS Social History Tobacco [...] 1:00 PM EDT Clinical Support [facility] MEDICINE [address] [place] [phone] Sandra Boyd RN 10/10/2024 10:30 AM EDT Office Visit [facility] MEDICINE [address] [place] [address] Pretty Molina MD 230 [place] [address] documented as of this encounter Visit Diagnoses Not on filedocumented in this encounter Care Teams Surtass Analyst Relationship Specialty Start Date End Date Pretty Molina MD [address] [place] [address] PCP - General Family Medicine 7/14/21 documented as of this encounter
--- OUTSIDE RECORDS SUMMARY | 2024-08-07 17:51 | XMS_ITS | Encounter Summary ---
Author Organization [employer] Address 75 [facility] 7t [place] [address] Care Team Providers Care Senior Loan Processor Name Role Phone Pretty Molina MD Primary Care Provide r Reason for Visit * Reason Onset Date Comments Med Refill 08/06/2024 Encounter Details Date Type Department Care Team (Late st Contact Info) Description 08/06/2024 Refill [facility]INE 230 [place] [address] Pretty Molina MD 230 [place] [address] Other chronic pain Social History Tobacco Use [...] encounter Miscellaneous Notes * Telephone Encounter - Paula Valencia - 08/06/2024 12:20 PM EST TC from pt requesting medication refill. Medications needing refill : oxyCODONE-acetaminophen (Percocet) 5-325 MG tablet To be sent to: [facility] documented in this encounter Plan of Treatment Upcoming Encounters Date Type Department Care Team (Late st Contact Info) Description 10/04/2024 1:00 PM EDT Clinical Support [facility] MEDICINE [address] [place] [address] Sandra Boyd RN 10/10/2024 10:30 AM EDT Office Visit [facility] [address] [place] [address] Pretty Molina MD 230 [place] [address] documented as of this encounter Visit Diagnoses Diagnosis Other chronic pain documented in this encounter Additional Health Concerns Assessment Noted Time PHQ-9 Depression Total Score: 4 01/06/20 24 2:22 PM EDT documented as of this encounter Care Teams Senior Loan Processor Relationship Specialty Start Date End Date Pretty Molina MD [address] [facility] [place] [address] PCP - General Family Medicine 12/24/20 documented as of this encounter
--- OUTSIDE RECORDS SUMMARY | 2024-08-07 17:52 | XMS_ITS | Encounter Summary ---
Author Organization [employer] Address 75 [facility] 7t [place] [address] Care Team Providers Care Corporate Administrator Name Role Phone Pretty Molina MD Primary Care Provide r Reason for Visit * Reason Comments Med Refill Encounter Details Date Type Department Care Team (Late st Contact Info) Description 11/24/2022 Refill [facility] DENTAL [address] [place] [address] Eliezer Richardson DDS [address] [place] [address] Social History Tobacco Use Types Packs/Day Years [...] Description 10/04/2024 1:00 PM EDT Clinical Support [address] [address] Sandra Boyd RN 10/10/2024 10:30 AM EDT Office Visit [address] [address] Pretty Molina MD [address] [place] [address] documented as of this encounter Visit Diagnoses Not on filedocumented in this encounter Additional Health Concerns Assessment Noted Time PHQ-9 Depression Total Score: 12 023 3:08 PM EDT documented as of this encounter Care Teams Corporate Administrator Relationship Specialty Start Date End Date Pretty Molina MD [address] [place] [address] PCP - General Family Medicine 12/24/20 documented as of this encounter
--- OUTSIDE RECORDS SUMMARY | 2024-08-07 17:52 | XMS_ITS | Encounter Summary ---
Author Organization [employer] Address 75 [facility] 7t [place] [address] Care Team Providers Care Compounder Helper Name Role Phone Pretty Molina MD Primary Care Provide r Reason for Visit * Reason Onset Date Comments Nurse Triage 04/26/2024 Encounter Details Date Type Department Care Team ([facility] st Contact Info) Description 04/26/2024 Telephone [facility] [address] [place] [address] Pretty Molina MD [address] [place] [address] Nurse Triage Social History Tobacco Use Types [...] 12:18 PM EST Please obtain note from [facility] ED visit 04/24/24, Upcoming appt with PCP tomorrow at 11am. * Telephone Encounter - Valeria Hooper LPN - 04/26/2024 11:58 AM EST Triage call returned with BLS #[id number] Yonathan. Patient reports that she was seen on 04/19/24. Patient is reporting following her Flu shot she has been feeling delicate . Chart shows Flu given in March. Call dropped. Return call with Electronic Operator Neto [phone]. Patient reports seen at [facility] and not improved with cough and congestion. Has no reported fever. Patient then reports presented to [facility] ED on 04/24/24 and was given scan [...] caller accepted this outcome. Contact pt at [phone] documented in this encounter Plan of Treatment Upcoming Encounters Date Type Department Care Team (Late st Contact Info) Description 10/04/2024 1:00 PM EDT Clinical Support [address] [address] Sandra Boyd RN 10/10/2024 10:30 AM EDT Office Visit [facility] [address] [place] [phone] Pretty Molina MD [address] [place] [address] documented as of this encounter Visit Diagnoses Not on filedocumented in this encounter Additional Health Concerns Assessment Noted Time PHQ-9 Depression Total Score: 4 01/06/20 24 2:22 PM EDT documented as of this encounter Care Teams Compounder Helper Relationship Specialty Start Date End Date Pretty Molina MD [address] [place] [phone] PCP - General Family Medicine 12/24/20 documented as of this encounter
--- OUTSIDE RECORDS SUMMARY | 2024-08-07 17:52 | XMS_ITS | Encounter Summary ---
Author Organization [employer] Address 75 [facility] 7t [place] [address] Care Team Providers Care Drill Press Operator Numerical Control Name Role Phone Pretty Molina MD Primary Care Provide r Reason for Visit * Reason Comments Med Refill Encounter Details Date Type Department Care Team (Late st Contact Info) Description 12/06/2023 Refill [facility] [address] [place], [place] [phone] Pretty Molina MD [address] [place], [place] [phone] Other chronic pain Social History Tobacco Use [...] Description 10/04/2024 1:00 PM EDT Clinical Support [facility] [address] [place] [phone] Sandra Boyd RN 10/10/2024 10:30 AM EDT Office Visit [facility] [address] [place] [phone] Pretty Molina MD [address] [place] [phone] documented as of this encounter Visit Diagnoses Diagnosis Other chronic pain documented in this encounter Additional Health Concerns Assessment Noted Time PHQ-9 Depression Total Score: 12 023 3:08 PM EDT documented as of this encounter Care Teams Drill Press Operator Numerical Control Relationship Specialty Start Date End Date Pretty Molina MD [address] [place] [phone] PCP - General Family Medicine 12/24/20 documented as of this encounter
--- OUTSIDE RECORDS SUMMARY | 2024-08-07 17:52 | XMS_ITS | Encounter Summary ---
Author Organization [employer] Address 75 [facility] 7t [place] [address] Care Team Providers Care School Teacher Name Role Phone rPetty Molina MD Primary Care Provide r Reason for Visit * Reason Comments Med Refill Encounter Details Date Type Department Care Team (Late st Contact Info) Description 07/19/[address] [facility] 230 [place], [place] [phone] Pretty Molina MD 230 [place] [address] Social History Tobacco Use Types Packs/Day Years [...] 10/04/2024 1:00 PM EDT Clinical Support [facility] [address] [place] [address] Sandra Boyd RN 10/10/2024 10:30 AM EDT Office Visit [facility] [address] [place] [phone] Pretty Molina MD [address] [place] [phone] documented as of this encounter Visit Diagnoses Not on filedocumented in this encounter Additional Health Concerns Assessment Noted Time PHQ-9 Depression Total Score: 4 01/06/20 24 2:22 PM EDT documented as of this encounter Care Teams School Teacher Relationship Specialty Start Date End Date Pretty Molina MD [address] [place] [phone] PCP - General Family Medicine 12/24/20 documented as of this encounter
--- OUTSIDE RECORDS SUMMARY | 2024-08-07 17:52 | XMS_ITS | Encounter Summary ---
Author Organization [employer] Address 75 [facility] 7t [place] [address] Care Team Providers Care Software Validation Engineer Name Role Phone Pretty Molina MD Primary Care Provide r Encounter Details Date Type Department Care Team (Late st Contact Info) Description 11/12/2022 Orders Only [facility] [address] [place], [place] [phone] Jocelyn Fleming LPN Social History Tobacco Use [...] 1:00 PM EDT Clinical Support [facility] [address] [place] [address] [phone] Sandra Boyd RN 10/10/2024 10:30 AM EDT Office Visit [facility] [address] [place] [address] [phone] Pretty Molina MD 230 [place], [place] [phone] documented as of this encounter Visit Diagnoses Not on filedocumented in this encounter Care Teams Software Validation Engineer Relationship Specialty Start Date End Date Pretty Molina MD [address] [place] [address] PCP - General Family Medicine 12/24/20 documented as of this encounter
--- OUTSIDE RECORDS SUMMARY | 2024-08-07 17:52 | XMS_ITS | Encounter Summary ---
Author Organization [employer] Address 75 [facility] 7t [place] [address] Care Team Providers Care Setup Technician Name Role Phone Pretty Molina MD [...] Description 10/04/2024 1:00 PM EDT Clinical Support [address] [phone] Sandra Boyd RN 10/10/2024 10:30 AM EDT Office Visit [address] [address] Pretty Molina MD [address] [place] [phone] documented as of this encounter Procedures Procedure [...] ? Age/Sex: 64/F ? : 1960 Unit#: [id number] ?? Attend Dr: Ramesh Gurrola MD ?Re07/18/24 ?Status: DEP REF ? Location: HO.LNP ?Disch: ? ----- ------- SPEC : [id number] ?RECD: 07/19/24 ? STATUS: ??SOUT ? REQ NUM: [id number] ? YASMINE: 07/18/24-1201 ? SUBM DR: Ramesh [...] Copies To: ?? Pretty Molina MD ?? [facility] ?? [address] ?? [place] [address] ?? [phone] ?? Ramesh Gurrola MD ?? [facility] ?? [address] [facility] [address] ?? [place] [address] ?? [phone] ? CONTINUED ON NEXT PAGE ----- ------- Name: Violet Pascal ? Age/Sex: 64/F ? : 1960 Unit#: [id number] ?? Attend Dr: Ramesh Gurrola MD ?Re07/18/24 ?Status: DEP REF ? Location: HO.LNP ?Disch: ? ----- ------- SPEC : [id number] ?RECD: 07/19/24 ? STATUS: ??SOUT ? REQ NUM: [id number] ? YASMINE: 07/18/24-2 ? SUBM DR: Ramesh Gurrola MD ? ENTERED: ??07/19/24 ?SP TYPE: Surgical ? OTHR : Pretty Molina MD ? ORDERED: ??HE Stain/2, Gross Micro L4 ? ----- ------- Signed (signature on file) Wally Harding MD 07/20/24 8243 ? ----- ------- ? END OF REPORT ? us Generic External Data Provider LAB BLOOD ORDERAB LES Final Result [facility] [address] [place] [address] [phone] documented in this encounter Visit Diagnoses Not on filedocumented in this encounter Additional Health Concerns Assessment Noted Time PHQ-9 Depression Total Score: 4 01/06/20 24 2:22 PM EDT documented as of this encounter Care Teams Setup Technician Relationship Specialty Start Date End Date Pretty Molina MD [address] [place] [phone] PCP - General Family Medicine 12/24/20 documented as of this encounter
--- OUTSIDE RECORDS SUMMARY | 2024-08-07 17:52 | XMS_ITS | Encounter Summary ---
Author Organization [employer] Address 75 [facility] 7t [place] [address] Care Team Providers Care Sawing And Assembly Supervisor Name Role Phone Pretty Molina MD Primary Care Provide r Reason for Visit * Reason Comments Med Refill Encounter Details Date Type Department Care Team (Late st Contact Info) Description 04/05/2024 Refill [facility] [address] [place], [place] [phone] Pretty Molina MD [address] [place] [address] Other chronic pain Social History Tobacco Use [...] 10/04/2024 1:00 PM EDT Clinical Support [facility] [address] [place] [phone] Sandra Boyd RN 10/10/2024 10:30 AM EDT Office Visit [facility] [address] [place] [phone] Pretty Molina MD [address] [place] [address] documented as of this encounter Visit Diagnoses Diagnosis Other chronic pain documented in this encounter Additional Health Concerns Assessment Noted Time PHQ-9 Depression Total Score: 4 01/06/20 24 2:22 PM EDT documented as of this encounter Care Teams Sawing And Assembly Supervisor Relationship Specialty Start Date End Date Pretty Molina MD [address] [place] [phone] PCP - General Family Medicine 12/24/20 documented as of this encounter
--- OUTSIDE RECORDS SUMMARY | 2024-08-07 17:52 | XMS_ITS | Encounter Summary ---
Author Organization [employer] Address 75 [facility] 7t [place] [address] Care Team Providers Care Commercial Loan Assistant Name Role Phone Pretty Molina MD Primary Care Provide r Reason for Visit * Reason Comments Med Refill Encounter Details Date Type Department Care Team (Late Contact Info) Description 12/27/2022 Refill [facility] [address] [place] [address] Jocelyn Bender DO [address] [place] [address] Seasonal allergic rhinitis, unspecified trigger Social History [...] 1:00 PM EDT Clinical Support [facility] [address] [place] [phone] Sandra Boyd, TONY 10/10/2024 10:30 AM EDT Office Visit [facility] [address] [place] [phone] Pretty Molina MD [address] [place] [phone] documented as of this encounter Visit Diagnoses Diagnosis Seasonal allergic rhinitis, unspecified trigger documented in this encounter Additional Health Concerns Assessment Noted Time PHQ-9 Depression Total Score: 12 023 3:08 PM EDT documented as of this encounter Care Teams Commercial Loan Assistant Relationship Specialty Start Date End Date Pretty Molina MD [address] [place] [phone] PCP - General Family Medicine 12/24/20 documented as of this encounter
--- OUTSIDE RECORDS SUMMARY | 2024-08-07 17:52 | XMS_ITS | Encounter Summary ---
Author Organization [employer] Address 75 [facility] 7t [place] [address] Care Team Providers Care Catcher Helper Name Role Phone Pretty Molina MD Primary Care Provide r Reason for Visit * Reason Comments Med Refill Encounter Details Date Type Department Care Team (Late st Contact Info) Description 04/15/2024 Refill [facility] [address] [place] [address] Pretty Molina MD [address] [place] [address] Social History Tobacco Use Types Packs/Day Years [...] Description 10/04/2024 1:00 PM EDT Clinical Support [facility] [address] [place] [phone] Sandra Boyd RN 10/10/2024 10:30 AM EDT Office Visit [facility] [address] [place] [phone] Pretty Molina MD [address] [place] [phone] documented as of this encounter Visit Diagnoses Not on filedocumented in this encounter Additional Health Concerns Assessment Noted Time PHQ-9 Depression Total Score: 4 01/06/20 24 2:22 PM EDT documented as of this encounter Care Teams Catcher Helper Relationship Specialty Start Date End Date Pretty Molina MD [address] [place] [phone] PCP - General Family Medicine 12/24/20 documented as of this encounter
--- OUTSIDE RECORDS SUMMARY | 2024-08-07 17:52 | XMS_ITS | Encounter Summary ---
Author Organization [employer] Address 75 [facility] 7t [place] [address] Care Team Providers Care Professor Of Visual Arts Name Role Phone Pretty Molina MD Primary [...] Description 10/04/2024 1:00 PM EDT Clinical Support [facility] [address] [place] [phone] Sandra Boyd RN 10/10/2024 10:30 AM EDT Office Visit [address] [address] Pretty Molina MD [address] [place] [phone] documented as of this encounter Procedures Procedure Name Priority Date/Time Associated Diagnosis Comments US PELVIS TRANSVAGINAL Routine 07/21/2024 9:20 AM EST BASIC METABOLIC PANEL Routine 07/20/2024 12:01 PM EST documented in this encounter Results * US Pelvis Transvaginal (07/21/2024 9:20 AM EST) Anatomical Region Laterality Modality Pelvis Ultrasound 07/21/2024 9:20 AM EST Narrative 07/21/2024 9:21 AM EST ? [facility] ?[address] ?[place] [address] ? Ultrasound Report ? Signed ? Patient: Pascal,Fredevinda ?MR#: [id number] ?? [id number] ? : 1960 ?Acct:[id number] ? Age/Sex: 64 / F ?ADM Date: 02/07/25 ? Loc: HO.US ? Attending Dr: Ramesh Gurrola MD ? Ordering Physician: Ramesh Gurrola MD ?? Date of Service: 07/20/24 ?? Procedure(s): US pelvic and transvaginal ?? Accession Number(s): [id number] ? cc: Pretty Molina MD; Ramesh Gurrola [...] ? DD/ 9 ? TD/TT: 07/21/24919 ? Commercial Review Appraiser: ? Procedure Note Gila Parr - 07/21/2024 [place] [address] Ultrasound Report Signed Patient: Abraham Pascal#: [id number] : 1960cct:[id number] Age/Sex: 64 / FADM Date: 07/20/24 Loc: HO.US Attending Dr: Ramesh Gurrola MD Ordering Physician: Ramesh Gurrola MD Date of Service: 07/20/24 Procedure(s): US pelvic and transvaginal Accession Number(s): [id number] cc: Pretty Molina MD; Ramesh Gurrola MD [...] in OV> 07/21/24919 DD/ 9 TD/TT: 07/21/24919 Commercial Review Appraiser: us [facility] External Provider IMG US PROCEDURES Edited Result - Final * (ABNORMAL) Basic Metabolic Panel (07/20/2024 12:01 PM EST) Sodium 137 135 - 145 mmol/L [facility] Potassium 4.2 3.3 - 5.1 mmol/L [facility] Chloride 103 96 - 108 mmol/L [facility] Carbon Dioxide 24 22 - 29 mmol/L [facility] Anion Gap 14 12 - 20 [facility] Urea Nitrogen (BUN) 18(H) 9 - 16 mg/dL [facility] Creatinine, Serum 0.75 0.5 - 1.4 mg/dL [facility] Estimated Glomerular Filt Rate >60 [facility] Comment:Chronic Kidney Disea se: Estimated GFR < 60 mL/min/1.59u4Jugpyn Kidney Disease: Estimated GFR < 15 mL/min/1.73m2 Glucose 156(H) 60 - 115 mg/dL [facility] Calcium 9.4 8.4 - 10.2 mg/dL [facility] 07/20/2024 12:0 1 PM EST 07/20/2024 12:01 PM EST Generic External Data Provider LAB BLOOD ORDERAB LES Final Result [facility] [address] [place] [phone] documented in this encounter Visit Diagnoses Not on filedocumented in this encounter Additional Health Concerns Assessment Noted Time PHQ-9 Depression Total Score: 4 01/06/20 24 2:22 PM EDT documented as of this encounter Care Teams Professor Of Visual Arts Relationship Specialty Start Date End Date Pretty Molina MD [address] [place] [address] PCP - General Family Medicine 12/24/20 documented as of this encounter
--- OUTSIDE RECORDS SUMMARY | 2024-08-07 17:52 | XMS_ITS | Encounter Summary ---
Author Organization [employer] Address 75 [facility] 7t [place] [address] Care Team Providers Care Director Of Quality Improvement Name Role Phone Pretty Molina MD Primary Care Provide r Reason for Visit * Reason Comments Med Refill Encounter Details Date Type Department Care Team (Late st Contact Info) Description 04/21/2024 Refill [facility] [address] [place], [place] [phone] Pretty Molina MD [address] [place] [address] Neuropathy Social History Tobacco Use Types Packs/Day [...] Description 10/04/2024 1:00 PM EDT Clinical Support [facility] [address] [place] [phone] Sandra Boyd RN 10/10/2024 10:30 AM EDT Office Visit [facility] [address] [place] [phone] Pretty Molina MD [address] [place] [phone] documented as of this encounter Visit Diagnoses Diagnosis Neuropathy Mononeuritis of unspecified site documented in this encounter Additional Health Concerns Assessment Noted Time PHQ-9 Depression Total Score: 4 01/06/20 24 2:22 PM EDT documented as of this encounter Care Teams Director Of Quality Improvement Relationship Specialty Start Date End Date Pretty Molina MD [address] [place] [phone] PCP - General Family Medicine 12/24/20 documented as of this encounter
== END 2024-08-07 15:12 | disposition home or self-care (01) ==
PROVIDERS: PCP Internal Medicine
DX: I44.30 Unspecified atrioventricular block (principal); E78.5 Hyperlipidemia, unspecified; I10 Essential (primary) hypertension; I42.2 Other hypertrophic cardiomyopathy
CPT/HCPCS: 93010; 99214

== ENCOUNTER → 2024-08-07 14:15 | Outpatient (BNVA) | payer MEDICAID, SELFPAY | PROVIDERS: PCP Internal Medicine | DX: I44.30 Unspecified atrioventricular block (principal); I42.2 Other hypertrophic cardiomyopathy; I10 Essential (primary) hypertension; E78.5 Hyperlipidemia, unspecified | CPT/HCPCS: 93005; 99212 ==

== ENCOUNTER 2024-08-16 08:43 | Outpatient (REF) | payer MEDICAID, SELFPAY ==
--- OUTSIDE RECORDS SUMMARY | 2024-08-16 09:21 | XMS_ITS | Encounter Summary ---
Author Organization [employer] Address [address] [facility] 7t [place] [address] Care Team Providers Care Pipeline Integrity Engineer Name Role Phone Pretty Molina MD Primary Care Provide r Reason for Visit * Reason Comments Med Refill Encounter Details Date Type Department Care Team (Late st Contact Info) Description 06/06/2024 Refill [facility] MED & PEDS [address] [place] [address] Pretty Molina MD [address] [place] [address] Type 2 diabetes mellitus with hyperglycemia, without long-term current use of insulin ([facility]) Social History Tobacco Use Types [...] 1:00 PM EDT Clinical Support [facility] MEDICINE [address] [place] [phone] Sandra Boyd RN 10/10/2024 10:30 AM EDT Office Visit [facility] [address] [place] [phone] Pretty Molina MD [address] [place] [phone] documented as of this encounter Visit Diagnoses Diagnosis Type 2 diabetes mellitus with hyperglycemia, without long-term current use of insulin ([facility]) documented in this encounter Additional Health Concerns Assessment Noted Time PHQ-9 Depression Total Score: 4 01/06/20 24 2:22 PM EDT documented as of this encounter Care Teams Pipeline Integrity Engineer Relationship Specialty Start Date End Date Pretty Molina MD [address] [place] [phone] PCP - General Family Medicine 12/24/20 documented as of this encounter
--- OUTSIDE RECORDS SUMMARY | 2024-08-16 09:21 | XMS_ITS | Encounter Summary ---
Author Organization [employer] Address [address] [facility] 7t [place] [address] Care Team Providers Care Production Packager Name Role Phone Pretty Molina MD Primary Care Provide r Reason for Visit * Reason Comments Med Refill Encounter Details Date Type Department Care Team (Late st Contact Info) Description 07/01/2024 Refill [facility]INE [address] [place] [address] Keysha Nagel, ERIC [address] [place] [address] Social History Tobacco Use Types Packs/Day Years [...] 1:00 PM EDT Clinical Support [facility] [address] [place] [phone] Sandra Boyd RN 10/10/2024 10:30 AM EDT Office Visit [facility] [address] [place] [phone] Pretty Molina MD [address] [place] [phone] documented as of this encounter Visit Diagnoses Not on filedocumented in this encounter Additional Health Concerns Assessment Noted Time PHQ-9 Depression Total Score: 4 01/06/20 24 2:22 PM EDT documented as of this encounter Care Teams Production Packager Relationship Specialty Start Date End Date Pretty Molina MD [address] [place] [phone] PCP - General Family Medicine 12/24/20 documented as of this encounter
--- OUTSIDE RECORDS SUMMARY | 2024-08-16 09:21 | XMS_ITS | Encounter Summary ---
Author Organization [employer] Address [address] [facility] 7t [place] [address] Care Team Providers Care Pipe Tester Name Role Phone Pretty Molina MD Primary Care Provide r Encounter Details Date Type Department Care Team (Late st Contact Info) Description 07/12/2022 Orders Only [facility] CH[facility] MED & PEDS [address] [place] [address] Jocelyn Fleming LPN Social History Tobacco Use [...] [facility] MED[facility]INE [address] [place] [phone] Sandra Boyd RN 10/10/2024 10:30 AM EDT Office Visit [facility] MED[facility]INE [address] [place] [phone] Pretty Molina MD [address] [place] [address] documented as of this encounter Visit Diagnoses Not on filedocumented in this encounter Care Teams Pipe Tester Relationship Specialty Start Date End Date Pretty Molina MD [address] [place] [phone] PCP - General Family Medicine 12/24/20 documented as of this encounter
--- OUTSIDE RECORDS SUMMARY | 2024-08-16 09:21 | XMS_ITS | Encounter Summary ---
Author Organization [employer] Address [address] [facility] 7t [place] [address] Care Team Providers Care Booth Cashier Name Role Phone Pretty Molina MD Primary Care Provide r Encounter Details Date Type Department Care Team ([facility] Contact Info) Description 09/01/2022 Orders Only [facility] CHC MED & PEDS [address] [place], [place] [phone] Jocelyn Fleming LPN Social History Tobacco Use [...] Description 10/04/2024 1:00 PM EDT Clinical Support [facility] MEDICINE [address] [place] [phone] Sandra Boyd RN 10/10/2024 10:30 AM EDT Office Visit [facility] [address] [place] [phone] Pretty Molina MD [address] [place], [place] [phone] documented as of this encounter Visit Diagnoses Not on filedocumented in this encounter Care Teams Booth Cashier Relationship Specialty Start Date End Date rPetty Molina MD [address] [place] [address] PCP - General Family Medicine 12/24/20 documented as of this encounter
--- OUTSIDE RECORDS SUMMARY | 2024-08-16 09:21 | XMS_ITS | Encounter Summary ---
Author Organization [employer] Address [address] [facility] 7t [place] [address] Care Team Providers Care Sales Engagement Executive Name Role Phone Pretty Molina MD Primary Care Provide r Encounter Details Date Type Department Care Team (Late st Contact Info) Description 07/01/2022 Orders Only [facility] MEDICINE [address] [place] [phone] Marti Cedillo RN Chronically on opiate therapy [...] Description 10/04/2024 1:00 PM EDT Clinical Support [address] [phone] Sandra Boyd RN 10/10/2024 10:30 AM EDT Office Visit [address] [phone] Pretty Molina MD [address] [place] [phone] documented as of this encounter Visit Diagnoses Diagnosis Chronically on opiate therapy- Primary documented in this encounter Care Teams Sales Engagement Executive Relationship Specialty Start Date End Date Pretty Molina MD [address] [place] [address] PCP - General Family Medicine 12/24/20 documented as of this encounter
--- OUTSIDE RECORDS SUMMARY | 2024-08-16 09:21 | XMS_ITS | Encounter Summary ---
Author Organization [employer] Address [address] [facility] 7t [place] [address] Care Team Providers Care Scrubbing Machine Operator Name Role Phone Pretty Molina MD Primary Care Provide r Encounter Details Date Type Department Care Team (Latest Contact Info) Description 04/21/2020 Abstract [facility] CONVERSIONS Dental, Provider, DDS Social [...] Clinical Support [facility] MEDICINE [address] [place] [phone] Sandra Boyd RN 10/10/2024 10:30 AM EDT Office Visit [facility] MEDICINE [address] [place] [phone] Pretty Molina MD [address] [place] [address] documented as of this encounter Visit Diagnoses Not on filedocumented in this encounter Care Teams Scrubbing Machine Operator Relationship Specialty Start Date End Date Pretty Molina MD [address] [place] [phone] PCP - General Family Medicine 7/14/21 documented as of this encounter
--- OUTSIDE RECORDS SUMMARY | 2024-08-16 09:21 | XMS_ITS | Encounter Summary ---
Author Organization [employer] Address 75 [facility] 7t [place] [address] Care Team Providers Care Supervisor Esters And Emulsifiers Name Role Phone Pretty Molina MD Primary Care Provide r Reason for Visit * Reason Comments Med Refill Encounter Details Date Type Department Care Team (Late st Contact Info) Description 06/11/2022 Refill [facility] MEDICINE [address] [place] [phone] Yasmine Hernandez MD 230 [place], [place] [phone] Chronic pain syndrome Social History Tobacco Use [...] Cedillo RN - 06/15/2022 10:45 AM EST Recreational Therapy Technician ck 06/15/22. documented in this encounter Plan of Treatment Upcoming Encounters Date Type Department Care Team (Late st Contact Info) Description 10/04/2024 1:00 PM EDT Clinical Support [facility] MEDICINE [address] [place] [phone] Sandra Boyd RN 10/10/2024 10:30 AM EDT Office Visit [facility] MEDICINE 230 [place] [address] Pretty Molina MD 230 [place] [address] documented as of this encounter Visit Diagnoses Diagnosis Chronic pain syndrome documented in this encounter Care Teams Supervisor Esters And Emulsifiers Relationship Specialty Start Date End Date Pretty Molina MD [address] [place] [phone] PCP - General Family Medicine 12/24/20 documented as of this encounter
--- OUTSIDE RECORDS SUMMARY | 2024-08-16 09:21 | XMS_ITS | Encounter Summary ---
Author Organization [employer] Address 75 [facility] 7t [place] [address] Care Team Providers Care Molded Candles Wicker Name Role Phone Pretty Molina MD Primary Care Provide r Encounter Details Date Type Department Care Team (Latest Contact Info) Description 05/31/2019 Abstract [facility] CONVERSIONS Dental, Provider, DDS Social History [...] 1:00 PM EDT Clinical Support [facility] MEDICINE [address] [place] [phone] Sandra Boyd RN 10/10/2024 10:30 AM EDT Office Visit [facility] MEDICINE [address] [place] [address] [phone] Pretty Molina MD 230 [place] [address] documented as of this encounter Visit Diagnoses Not on filedocumented in this encounter Care Teams Molded Candles Wicker Relationship Specialty Start Date End Date Pretty Molina MD [address] [place] [phone] PCP - General Family Medicine 7/14/21 documented as of this encounter
--- OUTSIDE RECORDS SUMMARY | 2024-08-16 09:21 | XMS_ITS | Encounter Summary ---
Author Organization [employer] Address 75 [facility] 7t [place] [address] Care Team Providers Care Contract Paralegal Name Role Phone Pretty Molina MD Primary Care Provide r Reason for Visit * Reason Comments Care Coordination SDOH f/u Encounter Details Date Type Department Care Team (Latest Contact Info) Description 08/09/2024 Patient Outreach [facility] MEDICINE 230 [place] [address] Pretty Molina MD 230 [place] [address] Care Coordination (SDOH f/u) Social History Tobacco Use Types Packs/Day Years [...] encounter Progress Notes * Mercedez Montano - 08/09/2024 11:20 AM EST CHW Mercedez Montano placed outbound call to patient to follow up on SDOH needs. Patient's name, and address confirmed. Patient states is doing well. Patient stated she has not received a call [employer] yet but will be on the lookout. CHW let patient know that if they don't call by next week then i will call them to do a status check. Patient agreed. No further questions or concerns. CHW reinforced direct contact information or CM for any additional questions or concerns and extended clinic hours on Mondays and Wednesdays, and Walk-In Urgent Care Located in [facility] of [facility]. Patient provided with after-hours line for [facility], , which offer nighttime triage service and option to transfer to sleeping car conductor provider ifneeded. Patient verbalizes understanding, and able to repeat back to designer/writer. A follow up call will be placed within 10 days, patient agrees with plan. documented in this encounter Plan of Treatment Upcoming Encounters Date Type Department Care Team ([facility] st Contact Info) Description 10/04/2024 1:00 PM EDT Clinical Support [address] [address] Sandra Boyd RN 10/10/2024 10:30 AM EDT Office Visit [facility] MEDICINE 230 [place] [address] Pretty Molina MD 230 [place] [address] documented as of this encounter Visit Diagnoses Not on filedocumented in this encounter Additional Health Concerns Assessment Noted Time PHQ-9 Depression Total Score: 4 01/06/20 24 2:22 PM EDT documented as of this encounter Care Teams Contract Paralegal Relationship Specialty Start Date End Date Pretty Molina MD [address] [place] [phone] PCP - General Family Medicine 12/24/20 documented as of this encounter
--- OUTSIDE RECORDS SUMMARY | 2024-08-16 09:21 | XMS_ITS | Encounter Summary ---
Author Organization [employer] Address 75 [facility] 7 [place] [address] Care Team Providers Care Dairy Equipment Installer Name Role Phone Pretty Molina MD Primary Care Provide r Reason for Visit * Reason Onset Date Comments Med Refill 06/10/2022 Encounter Details Date Type Department Care Team (Late st Contact Info) Description 06/10/2022 Refill [facility] MEDICINE 230 [place] [address] Pretty Molina MD 230 [place], [place] [phone] Social History Tobacco Use Types Packs/Day Years [...] 1:00 PM EDT Clinical Support [facility] MEDICINE 230 [place], [place] [phone] Sandra Boyd RN 10/10/2024 10:30 AM EDT Office Visit [facility] MEDICINE [address] [place], [place] [phone] Pretty Molina MD [address] [place] [address] documented as of this encounter Visit Diagnoses Not on filedocumented in this encounter Care Teams Dairy Equipment Installer Relationship Specialty Start Date End Date Pretty Molina MD [address] [place] [phone] PCP - General Family Medicine 12/24/20 documented as of this encounter
--- OUTSIDE RECORDS SUMMARY | 2024-08-16 09:22 | XMS_ITS | Encounter Summary ---
Author Organization [employer] Address 75 [facility] 7t [place] [address] Care Team Providers Care Circular Clerk Name Role Phone Pretty Molina MD Primary Care Provide r Reason for Visit * Reason Comments Med Refill Encounter Details Date Type Department Care Team (Late st Contact Info) Description 05/09/2023 Refill [facility] MEDICINE 230 [place], [place] [phone] Pretty Molina MD 230 [place], [place] [phone] Other chronic pain Social History Tobacco Use [...] Clinical Support [facility] MEDICINE [address] [place] [phone] Sandra Boyd RN 10/10/2024 10:30 AM EDT Office Visit [facility] MEDICINE [address] [place] [address] Pretty Molina MD [address] [place] [address] documented as of this encounter Visit Diagnoses Diagnosis Other chronic pain documented in this encounter Additional Health Concerns Assessment Noted Time PHQ-9 Depression Total Score: 12 023 3:08 PM EDT documented as of this encounter Care Teams Circular Clerk Relationship Specialty Start Date End Date Pretty Molina MD [address] [place] [phone] PCP - General Family Medicine 12/24/20 documented as of this encounter
--- OUTSIDE RECORDS SUMMARY | 2024-08-16 09:22 | XMS_ITS | Encounter Summary ---
Author Organization [employer] Address 75 [facility] 7t [place] [address] Care Team Providers Care Polisher Aluminum Name Role Phone Prtety Molina MD Primary Care Provide r Reason for Visit * Reason Comments Care Coordination SDOH Encounter Details Date Type Department Care Team (Latest Contact Info) Description 08/02/2024 Patient Outreach [facility]ICINE 230 [place] [address] Pretty Molina MD 230 [place] [address] Care Coordination (SDOH) Social History Tobacco Use [...] this time. CHW LVM introducing herself from [facility] CM Department with CHW's name, department and direct contact number requesting call back. Will re-attempt to contact within 5 days. and address not confirmed. documented in this encounter Plan of Treatment Upcoming Encounters Date Type Department Care Team ([facility] st Contact Info) Description 10/04/2024 1:00 PM EDT Clinical Support [facility] MEDICINE [address] [place] [address] Sandra Boyd RN 10/10/2024 10:30 AM EDT Office Visit [facility] MED[facility]INE [address] [place] [phone] Pretty Molina MD 230 [place] [address] documented as of this encounter Visit Diagnoses Not on filedocumented in this encounter Additional Health Concerns Assessment Noted Time PHQ-9 Depression Total Score: 4 01/06/20 2:22 PM EDT documented as of this encounter Care Teams Polisher Aluminum Relationship Specialty Start Date End Date Pretty Molina MD 230 [place] [address] PCP - General Family Medicine 12/24/20 documented as of this encounter
--- OUTSIDE RECORDS SUMMARY | 2024-08-16 09:22 | XMS_ITS | Encounter Summary ---
Author Organization [employer] Address 75 [facility] 7t [place] [address] Care Team Providers Care Habilitation Specialist Name Role Phone Pretty Molina MD Primary Care Provide r Reason for Visit * Reason Comments Med Refill Encounter Details Date Type Department Care Team (Late st Contact Info) Description 08/15/2024 Refill [facility] MEDICINE 230 [place], [place] [phone] Pretty Molina MD 230 [place] [address] Essential hypertension Social History Tobacco Use Types Packs/Day [...] Description 10/04/2024 1:00 PM EDT Clinical Support [facility] MEDICINE [address] [place] [address] Sandra Boyd RN 10/10/2024 10:30 AM EDT Office Visit [facility] MEDICINE [address] [place] [phone] Pretty Molina MD [address] [place] [address] documented as of this encounter Visit Diagnoses Diagnosis Essential hypertension Unspecified essential hypertension documented in this encounter Additional Health Concerns Assessment Noted Time PHQ-9 Depression Total Score: 4 01/06/20 24 2:22 PM EDT documented as of this encounter Care Teams Habilitation Specialist Relationship Specialty Start Date End Date Pretty Molina MD [address] [place] [address] PCP - General Family Medicine 12/24/20 documented as of this encounter
--- OUTSIDE RECORDS SUMMARY | 2024-08-16 09:22 | XMS_ITS | Encounter Summary ---
Author Organization [employer] Address 75 [facility] 7t [place] [address] Care Team Providers Care Landing Gear Mechanic Name Role Phone Pretty Molina MD Primary Care Provide r Reason for Visit * Reason Comments Med Refill Encounter Details Date Type Department Care Team (Late st Contact Info) Description 07/05/2023 Refill [facility] CHC MED & PEDS [address] [place], [place] [phone] Pretty Molina MD 230 [place] [address] Social History Tobacco Use Types Packs/Day Years [...] 1:00 PM EDT Clinical Support [facility] MEDICINE [address] [place] [phone] Sandra Boyd RN 10/10/2024 10:30 AM EDT Office Visit [facility] MEDICINE [address] [place] [phone] Pretty Molina MD [address] [place] [address] documented as of this encounter Visit Diagnoses Not on filedocumented in this encounter Additional Health Concerns Assessment Noted Time PHQ-9 Depression Total Score: 12 023 3:08 PM EDT documented as of this encounter Care Teams Landing Gear Mechanic Relationship Specialty Start Date End Date Pretty Molina MD [address] [place] [phone] PCP - General Family Medicine 12/24/20 documented as of this encounter
--- OUTSIDE RECORDS SUMMARY | 2024-08-16 09:22 | XMS_ITS | Encounter Summary ---
Author Organization [employer] Address 75 [facility] 7t [place] [address] Care Team Providers Care Prover Name Role Phone Pretty Molina MD Primary Care Provide r Reason for Visit * Reason Comments Care Coordination SDOH Encounter Details Date Type Department Care Team (Latest Contact Info) Description 07/27/2024 Patient Outreach [facility] MEDICINE 230 [place] [address] Pretty Molina MD 230 [place] [address] Care Coordination (SDOH) Social History Tobacco Use [...] this time. CHW LVM introducing herself from [facility] CM Department with CHW's name, department and direct contact number requesting call back. Will re-attempt to contact within 5 days. and address not confirmed. documented in this encounter Plan of Treatment Upcoming Encounters Date Type Department Care Team (Late st Contact Info) Description 10/04/2024 1:00 PM EDT Clinical Support [facility] MEDICINE [address] [place] [address] Sandra Boyd RN 10/10/2024 10:30 AM EDT Office Visit [facility] MEDICINE [address] [place] [address] Pretty Molina MD 230 [place] [address] documented as of this encounter Visit Diagnoses Not on filedocumented in this encounter Additional Health Concerns Assessment Noted Time PHQ-9 Depression Total Score: 4 01/06/20 24 2:22 PM EDT documented as of this encounter Care Teams Prover Relationship Specialty Start Date End Date Pretty Molina MD 230 [place] [address] PCP - General Family Medicine 12/24/20 documented as of this encounter
--- OUTSIDE RECORDS SUMMARY | 2024-08-16 09:22 | XMS_ITS | Encounter Summary ---
Author Organization [employer] Address 75 [facility] 7t [place] [address] Care Team Providers Care Special Education Professional Name Role Phone Pretty Molina MD Primary Care Provide r Reason for Visit * Reason Comments Med Refill Encounter Details Date Type Department Care Team ([facility] st Contact Info) Description 03/23/2023 Refill [facility] CHC MED & PEDS 505 [place], [place] [phone] Pretty Molina MD 230 [place] [address] Neuropathy Social History Tobacco Use Types Packs/Day [...] 10/04/2024 1:00 PM EDT Clinical Support [facility] MEDICINE [address] [place] [phone] Sandra Boyd RN 10/10/2024 10:30 AM EDT Office Visit [facility] MEDICINE [address] [place] [phone] Pretty Molina MD [address] [place] [address] documented as of this encounter Visit Diagnoses Diagnosis Neuropathy Mononeuritis of unspecified site documented in this encounter Additional Health Concerns Assessment Noted Time PHQ-9 Depression Total Score: 12 023 3:08 PM EDT documented as of this encounter Care Teams Special Education Professional Relationship Specialty Start Date End Date Pretty Molina MD [address] [place] [address] [phone] PCP - General Family Medicine 12/24/20 documented as of this encounter
--- OUTSIDE RECORDS SUMMARY | 2024-08-16 09:22 | XMS_ITS | Encounter Summary ---
Author Organization [employer] Address [address] [facility] 7t [place] [address] Care Team Providers Care Sheriff Deputy Name Role Phone Pretty Molina MD Primary Care Provide r Reason for Visit * Reason Comments Med Refill Encounter Details Date Type Department Care Team (Late st Contact Info) Description 03/30/2023 Refill [facility] MEDICINE 230 [place], [place] [phone] Pretty Molina MD 230 [place] [address] Other chronic pain Social History Tobacco Use [...] 1:00 PM EDT Clinical Support [facility] MEDICINE [address] [place] [address] Sandra Boyd RN 10/10/2024 10:30 AM EDT Office Visit [facility] MEDICINE [address] [place] [address] Pretty Molina MD [address] [place] [address] documented as of this encounter Visit Diagnoses Diagnosis Other chronic pain documented in this encounter Additional Health Concerns Assessment Noted Time PHQ-9 Depression Total Score: 12 023 3:08 PM EDT documented as of this encounter Care Teams Sheriff Deputy Relationship Specialty Start Date End Date Pretty Molina MD [address] [place] [address] PCP - General Family Medicine 12/24/20 documented as of this encounter
--- OUTSIDE RECORDS SUMMARY | 2024-08-16 09:22 | XMS_ITS | Encounter Summary ---
Author Organization [employer] Address 75 [facility] 7t [place] [address] Care Team Providers Care Logistics System Engineer Name Role Phone Pretty Molina MD Primary Care Provide r Reason for Visit * Reason Comments Med Refill Encounter Details Date Type Department Care Team (Late st Contact Info) Description 05/12/2023 Refill [facility] CHC MED & PEDS 505 [place], [place] [phone] Pretty Molina MD 230 [place] [address] Neuropathy Social History Tobacco Use Types Packs/Day [...] Description 10/04/2024 1:00 PM EDT Clinical Support [facility] MEDICINE [address] [place] [address] Sandra Boyd RN 10/10/2024 10:30 AM EDT Office Visit [facility] MEDICINE [address] [place] [address] Pretty Molina MD [address] [place] [address] documented as of this encounter Visit Diagnoses Diagnosis Neuropathy Mononeuritis of unspecified site documented in this encounter Additional Health Concerns Assessment Noted Time PHQ-9 Depression Total Score: 12 023 3:08 PM EDT documented as of this encounter Care Teams Logistics System Engineer Relationship Specialty Start Date End Date Pretty Molina MD [address] [place] [address] PCP - General Family Medicine 12/24/20 documented as of this encounter
--- OUTSIDE RECORDS SUMMARY | 2024-08-16 09:22 | XMS_ITS | Encounter Summary ---
Author Organization [employer] Address [address] [facility] 7t [place] [address] Care Team Providers Care Hay Chopper Name Role Phone Pretty Molina MD Primary Care Provide r Reason for Visit * Reason Comments Med Refill Encounter Details Date Type Department Care Team (Late st Contact Info) Description 02/28/2023 Refill [facility] MEDICINE [address] [place] [address] [phone] Pretty Molina MD 230 [place] [address] Social History Tobacco Use Types Packs/Day Years [...] Description 10/04/2024 1:00 PM EDT Clinical Support [facility] MEDICINE [address] [place] [address] [phone] Sandra Boyd RN 10/10/2024 10:30 AM EDT Office Visit [facility] MEDICINE [address] [place] [address] Pretty Molina MD 230 [place], [place] [phone] documented as of this encounter Visit Diagnoses Not on filedocumented in this encounter Additional Health Concerns Assessment Noted Time PHQ-9 Depression Total Score: 12 11/24/ 023 3:08 PM EDT documented as of this encounter Care Teams Hay Chopper Relationship Specialty Start Date End Date Pretty Molina MD 230 [place] [address] PCP - General Family Medicine 12/24/20 documented as of this encounter
--- OUTSIDE RECORDS SUMMARY | 2024-08-16 09:22 | XMS_ITS | Encounter Summary ---
Author Organization [employer] Address 75 [facility] 7t [place] [address] Care Team Providers Care Associate Product Integrity Engineer Name Role Phone Pretty Molina MD Primary Care Provide r Reason for Visit * Reason Comments Med Refill Encounter Details Date Type Department Care Team (Late st Contact Info) Description 05/10/[address] [facility] MEDICINE 230 [place], [place] [phone] Pretty Molina MD 230 [place], [place] [phone] Other chronic pain Social History Tobacco Use [...] 10/04/2024 1:00 PM EDT Clinical Support [facility] MEDICINE [address] [place] [phone] Sandra Boyd RN 10/10/2024 10:30 AM EDT Office Visit [facility] MEDICINE [address] [place] [address] [phone] Pretty Molina MD [address] [place] [address] documented as of this encounter Visit Diagnoses Diagnosis Other chronic pain documented in this encounter Additional Health Concerns Assessment Noted Time PHQ-9 Depression Total Score: 12 023 3:08 PM EDT documented as of this encounter Care Teams Associate Product Integrity Engineer Relationship Specialty Start Date End Date Pretty Molina MD [address] [place] [phone] PCP - General Family Medicine 12/24/20 documented as of this encounter
--- OUTSIDE RECORDS SUMMARY | 2024-08-16 09:22 | XMS_ITS | Encounter Summary ---
Author Organization [employer] Address 75 [facility] 7t [place] [address] Care Team Providers Care Access Developer Name Role Phone Pretty Molina MD Primary Care Provide r Reason for Visit * Reason Comments Med Refill Encounter Details Date Type Department Care Team (Late st Contact Info) Description 07/27/2024 Refill [facility] MEDICINE 230 [place] [address] Pretty Molina MD 230 [place] [address] Social History Tobacco Use Types Packs/Day Years [...] Description 10/04/2024 1:00 PM EDT Clinical Support [facility] MEDICINE [address] [place] [address] Sandra Boyd RN 10/10/2024 10:30 AM EDT Office Visit [facility] MEDICINE [address] [place] [address] Pretty Molina MD [address] [place] [address] 209[address] documented as of this encounter Visit Diagnoses Not on filedocumented in this encounter Additional Health Concerns Assessment Noted Time PHQ-9 Depression Total Score: 4 01/06/20 24 2:22 PM EDT documented as of this encounter Care Teams Access Developer Relationship Specialty Start Date End Date Pretty Molina MD [address] [place] [phone] PCP - General Family Medicine 12/24/20 documented as of this encounter
--- OUTSIDE RECORDS SUMMARY | 2024-08-16 09:22 | XMS_ITS | Encounter Summary ---
Author Organization [employer] Address 75 [facility] 7t [place] [address] Care Team Providers Care Automotive Consultant Name Role Phone Pretty Molina MD [...] [facility] MEDICINE [address] [place] [address] [phone] Sandra Boyd RN 10/10/2024 10:30 AM EDT Office Visit [facility] MEDICINE [address] [place] [phone] Pretty Molina MD 230 [place] [address] documented as of this encounter Visit Diagnoses Not on filedocumented in this encounter Care Teams Automotive Consultant Relationship Specialty Start Date End Date Pretty Molina MD [address] [place] [phone] PCP - General Family Medicine 7/14/21 documented as of this encounter
--- OUTSIDE RECORDS SUMMARY | 2024-08-16 09:22 | XMS_ITS | Encounter Summary ---
Author Organization [employer] Address 75 [facility] 7t [place] [address] Care Team Providers Care Gas Station Manager Name Role Phone Pretty Molina MD Primary Care Provide r Reason for Visit * Reason Comments Med Refill Encounter Details Date Type Department Care Team (Late st Contact Info) Description 07/18/2024 Refill [facility] 230 [place] [address] Pretty Molina MD 230 [place] [address] Dry eye syndrome of bilateral lacrimal glands [...] Description 10/04/2024 1:00 PM EDT Clinical Support [facility] [address] [place] [phone] Sandra Boyd RN 10/10/2024 10:30 AM EDT Office Visit [facility] [address] [place] [phone] Pretty Molina MD [address] [place] [phone] documented as of this encounter Visit Diagnoses Diagnosis Dry eye syndrome of bilateral lacrimal glands documented in this encounter Additional Health Concerns Assessment Noted Time PHQ-9 Depression Total Score: 4 01/06/20 24 2:22 PM EDT documented as of this encounter Care Teams Gas Station Manager Relationship Specialty Start Date End Date Pretty Molina MD [address] [place] [phone] PCP - General Family Medicine 12/24/20 documented as of this encounter
--- OUTSIDE RECORDS SUMMARY | 2024-08-16 09:22 | XMS_ITS | Encounter Summary ---
Author Organization [employer] Address 75 [facility] 7t [place] [address] Care Team Providers Care Research Study Assistant Name Role Phone Pretty Molina MD Primary Care Provide r Reason for Visit * Reason Comments Care Coordination SDOH Encounter Details Date Type Department Care Team (Latest Contact Info) Description 08/02/2024 Patient Outreach [facility] 230 [place] [address] Pretty Molina MD 230 [place] [address] Care Coordination (SDOH) Social History Tobacco Use [...] Wednesdays, and Walk-In Urgent Care Located in [facility]. Patient provided with after-hours line for [facility], , which offer nighttime triage service and option to transfer to director recreation center provider ifneeded. Patient verbalizes understanding, and able to repeat back to screen writer. A follow up call will be placed within 10 days, patient agrees with plan. documented in this encounter Plan of Treatment Upcoming Encounters Date Type Department Care Team ([facility] st Contact Info) Description 10/04/2024 1:00 PM EDT Clinical Support [facility] [address] [place] [address] [phone] Sandra Boyd, RN 10/10/2024 10:30 AM EDT Office Visit [facility] 230 [place], [place] [phone] Pretty Molina MD [address] [place] [phone] documented as of this encounter Visit Diagnoses Not on filedocumented in this encounter Additional Health Concerns Assessment Noted Time PHQ-9 Depression Total Score: 4 01/06/20 24 2:22 PM EDT documented as of this encounter Care Teams Research Study Assistant Relationship Specialty Start Date End Date Pretty Molina MD [address] [place] [address] [phone] PCP - General Family Medicine 12/24/20 documented as of this encounter
--- OUTSIDE RECORDS SUMMARY | 2024-08-16 09:22 | XMS_ITS | Encounter Summary ---
Author Organization [employer] Address 75 [facility] 7t [place] [address] Care Team Providers Care Pharmacy Sales Assistant Name Role Phone Pretty Molina MD Primary Care Provide r Reason for Visit * Reason Comments Med Refill Encounter Details Date Type Department Care Team (Late st Contact Info) Description 05/02/2023 Refill [facility] 230 [place] [address] Jocelyn Bender DO 230 [place] [address] Seasonal allergic rhinitis, unspecified trigger Social History [...] EDT Clinical Support [facility] [address] [place] [phone] Sandra Boyd RN 10/10/2024 10:30 AM EDT Office Visit [facility] [address] [place] [phone] Pretty Molina MD [address] [place] [phone] documented as of this encounter Visit Diagnoses Diagnosis Seasonal allergic rhinitis, unspecified trigger documented in this encounter Additional Health Concerns Assessment Noted Time PHQ-9 Depression Total Score: 12 023 3:08 PM EDT documented as of this encounter Care Teams Pharmacy Sales Assistant Relationship Specialty Start Date End Date Pretty Molina MD [address] [place] [phone] PCP - General Family Medicine 12/24/20 documented as of this encounter
--- OUTSIDE RECORDS SUMMARY | 2024-08-16 09:22 | XMS_ITS | Encounter Summary ---
Author Organization [employer] Address 75 [facility] 7t [place] [address] Care Team Providers Care Guinea Pig Breeder Name Role Phone Pretty Molina MD Primary Care Provide r Reason for Visit * Reason Comments Med Refill Encounter Details Date Type Department Care Team (Late st Contact Info) Description 07/30/2024 Refill [facility] 230 [place], [place] [phone] Pretty Molina MD 230 [place] [address] Type 2 diabetes mellitus with hyperglycemia, without long-term current use of insulin ([facility]) Social History Tobacco Use Types [...] Description 10/04/2024 1:00 PM EDT Clinical Support [facility] [address] [place] [phone] Sandra Boyd RN 10/10/2024 10:30 AM EDT Office Visit [address] [address] Pretty Molina MD [address] [place] [address] documented as of this encounter Visit Diagnoses Diagnosis Type 2 diabetes mellitus with hyperglycemia, without long-term current use of insulin ([facility]) documented in this encounter Additional Health Concerns Assessment Noted Time PHQ-9 Depression Total Score: 4 01/06/20 24 2:22 PM EDT documented as of this encounter Care Teams Guinea Pig Breeder Relationship Specialty Start Date End Date Pretty Molina MD [address] [place] [phone] PCP - General Family Medicine 12/24/20 documented as of this encounter
--- OUTSIDE RECORDS SUMMARY | 2024-08-16 09:22 | XMS_ITS | Encounter Summary ---
Author Organization [employer] Address 75 [facility] 7t [place] [address] Care Team Providers Care Pumper Gager Apprentice Name Role Phone Pretty Molina MD Primary Care Provide r Reason for Visit * Reason Onset Date Comments Med Refill 08/06/2024 Encounter Details Date Type Department Care Team (Late st Contact Info) Description 08/06/2024 Refill [facility] 230 [place] [address] Pretty Molina MD 230 [place] [address] Other chronic pain Social History Tobacco Use [...] 5-325 MG tablet To be sent to: [facility] documented in this encounter Plan of Treatment Upcoming Encounters Date Type Department Care Team (Late st Contact Info) Description 10/04/2024 1:00 PM EDT Clinical Support [facility] [address] [place] [phone] Sandra Boyd RN 10/10/2024 10:30 AM EDT Office Visit [facility] [address] [place] [phone] Pretty Molina MD 230 [place] [address] documented as of this encounter Visit Diagnoses Diagnosis Other chronic pain documented in this encounter Additional Health Concerns Assessment Noted Time PHQ-9 Depression Total Score: 4 01/06/20 24 2:22 PM EDT documented as of this encounter Care Teams Pumper Gager Apprentice Relationship Specialty Start Date End Date Pretty Molina MD [address] [facility] [place] [address] PCP - General Family Medicine 12/24/20 documented as of this encounter
--- OUTSIDE RECORDS SUMMARY | 2024-08-16 09:23 | XMS_ITS | Encounter Summary ---
Author Organization [employer] Address 75 [facility] 7t [place] [address] Care Team Providers Care Blending Technician Name Role Phone Pretty Molina MD Primary Care Provide r Reason for Visit * Reason Comments Med Refill Encounter Details Date Type Department Care Team (Late st Contact Info) Description 04/05/2024 Refill [facility] 230 [place], [place] [phone] Pretty Molina MD 230 [place] [address] Other chronic pain Social History Tobacco Use [...] Clinical Support [facility] [address] [place] [phone] Sandra Boyd RN 10/10/2024 10:30 AM EDT Office Visit [facility] [address] [place] [phone] Pretty Molina MD [address] [place] [address] documented as of this encounter Visit Diagnoses Diagnosis Other chronic pain documented in this encounter Additional Health Concerns Assessment Noted Time PHQ-9 Depression Total Score: 4 01/06/20 24 2:22 PM EDT documented as of this encounter Care Teams Blending Technician Relationship Specialty Start Date End Date Pretty Molina MD [address] [place] [phone] PCP - General Family Medicine 12/24/20 documented as of this encounter
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
--- OUTSIDE RECORDS SUMMARY | 2024-08-16 09:23 | XMS_ITS | Encounter Summary ---
Author Organization [employer] Address 75 [facility] 7t [place] [address] Care Team Providers Care Aircraft Charter Dispatcher Name Role Phone Pretty Molina MD Primary Care Provide r Encounter Details Date Type Department Care Team (Late st Contact Info) Description 11/12/2022 Orders Only [facility]S [address] [place], [place] [phone] Jocelyn Fleming LPN Social History Tobacco Use [...] Support [facility] MEDICINE [address] [place] [address] [phone] Sandra Boyd RN 10/10/2024 10:30 AM EDT Office Visit [facility]INE [address] [place] [address] [phone] Pretty Molina MD 230 [place], [place] [phone] documented as of this encounter Visit Diagnoses Not on filedocumented in this encounter Care Teams Aircraft Charter Dispatcher Relationship Specialty Start Date End Date Pretty Molina MD 230 [place] [address] PCP - General Family Medicine 12/24/20 documented as of this encounter
--- OUTSIDE RECORDS SUMMARY | 2024-08-16 09:23 | XMS_ITS | Encounter Summary ---
Author Organization [employer] Address 75 [facility] 7t [place] [address] Care Team Providers Care Enamel Burner Name Role Phone Pretty Molina MD Primary Care Provide r Reason for Visit * Reason Comments Med Refill Encounter Details Date Type Department Care Team (Late st Contact Info) Description 04/15/2024 Refill [facility] 505 [place] [address] Pretty Molina MD 230 [place] [address] Social History Tobacco Use Types Packs/Day Years [...] PM EDT Clinical Support [facility] [address] [place] [phone] Sandra Boyd RN 10/10/2024 10:30 AM EDT Office Visit [facility] [address] [place] [phone] Pretty Molina MD [address] [place] [address] documented as of this encounter Visit Diagnoses Not on filedocumented in this encounter Additional Health Concerns Assessment Noted Time PHQ-9 Depression Total Score: 4 01/06/20 24 2:22 PM EDT documented as of this encounter Care Teams Enamel Burner Relationship Specialty Start Date End Date Pretty Molina MD [address] [place] [address] PCP - General Family Medicine 12/24/20 documented as of this encounter
--- OUTSIDE RECORDS SUMMARY | 2024-08-16 09:23 | XMS_ITS | Encounter Summary ---
Author Organization [employer] Address 75 [facility] 7t [place] [address] Care Team Providers Care Ui Programmer Name Role Phone Pretty Molina MD Primary Care Provide r Reason for Visit * Reason Onset Date Comments Nurse Triage 04/26/2024 Encounter Details Date Type Department Care Team ([facility] st Contact Info) Description 04/26/2024 Telephone [facility] 230 [place] [address] Pretty Molina MD 230 [place] [address] Nurse Triage Social History Tobacco Use Types [...] 12:18 PM EST Please obtain note from [facility] ED visit 04/24/24, Upcoming appt with PCP tomorrow at 11am. * Telephone Encounter - Valeria Hooper LPN - 04/26/2024 11:58 AM EST Triage call returned with BLS #[id number] Yonathan. Patient reports that she was seen on 04/19/24. Patient is reporting following her Flu shot she has been feeling delicate . Chart shows Flu given in March. Call dropped. Return call with Calender Tender Neto [phone]. Patient reports seen at [facility] and not improved with cough and congestion. Has no reported fever. Patient then reports presented to [facility] ED on 04/24/24 and was given scan [...] caller accepted this outcome. Contact pt at [phone] documented in this encounter Plan of Treatment Upcoming Encounters Date Type Department Care Team (Late st Contact Info) Description 10/04/2024 1:00 PM EDT Clinical Support [address] [address] Sandra Boyd RN 10/10/2024 10:30 AM EDT Office Visit [facility] [address] [place] [address] Pretty Molina MD [address] [place] [address] documented as of this encounter Visit Diagnoses Not on filedocumented in this encounter Additional Health Concerns Assessment Noted Time PHQ-9 Depression Total Score: 4 01/06/20 24 2:22 PM EDT documented as of this encounter Care Teams Ui Programmer Relationship Specialty Start Date End Date Pretty Molina MD [address] [place] [phone] PCP - General Family Medicine 12/24/20 documented as of this encounter
--- OUTSIDE RECORDS SUMMARY | 2024-08-16 09:23 | XMS_ITS | Encounter Summary ---
Author Organization [employer] Address 75 [facility] 7t [place] [address] Care Team Providers Care Automotive Product Specialist Name Role Phone Pretty Molina MD Primary Care Provide r Reason for Visit * Reason Comments Med Refill Encounter Details Date Type Department Care Team (Late st Contact Info) Description 12/06/2023 Refill [facility] 230 [place], [place] [phone] Pretty Molina MD 230 [place], [place] [phone] Other chronic pain Social History Tobacco Use [...] 1:00 PM EDT Clinical Support [facility]INE [address] [place] [phone] Sandra Boyd RN 10/10/2024 10:30 AM EDT Office Visit [facility] [address] [place] [phone] Pretty Molina MD [address] [place] [address] documented as of this encounter Visit Diagnoses Diagnosis Other chronic pain documented in this encounter Additional Health Concerns Assessment Noted Time PHQ-9 Depression Total Score: 12 023 3:08 PM EDT documented as of this encounter Care Teams Automotive Product Specialist Relationship Specialty Start Date End Date Pretty Molina MD [address] [place] [phone] PCP - General Family Medicine 12/24/20 documented as of this encounter
--- OUTSIDE RECORDS SUMMARY | 2024-08-16 09:23 | XMS_ITS | Encounter Summary ---
Author Organization [employer] Address 75 [facility] 7t [place] [address] Care Team Providers Care Airline Security Representative Name Role Phone Pretty Molina MD Primary Care Provide r Reason for Visit * Reason Comments Med Refill Encounter Details Date Type Department Care Team (Late st Contact Info) Description 07/19/2024 Refill [facility] 230 [place], [place] [phone] Pretty Molina MD 230 [place] [address] Social History Tobacco Use Types Packs/Day Years [...] 1:00 PM EDT Clinical Support [facility] [address] [place] [phone] Sandra Boyd RN 10/10/2024 10:30 AM EDT Office Visit [facility] [address] [place] [address] Pretty Molina MD [address] [place] [address] documented as of this encounter Visit Diagnoses Not on filedocumented in this encounter Additional Health Concerns Assessment Noted Time PHQ-9 Depression Total Score: 4 01/06/20 24 2:22 PM EDT documented as of this encounter Care Teams Airline Security Representative Relationship Specialty Start Date End Date Pretty Molina MD [address] [place] [phone] PCP - General Family Medicine 12/24/20 documented as of this encounter
--- OUTSIDE RECORDS SUMMARY | 2024-08-16 09:23 | XMS_ITS | Encounter Summary ---
Author Organization [employer] Address 75 [facility] 7t [place] [address] Care Team Providers Care Payroll Technician Name Role Phone Pretty Molina MD Primary Care Provide r Reason for Visit * Reason Comments Med Refill Encounter Details Date Type Department Care Team (Late Contact Info) Description 12/27/2022 Refill [facility] 230 [place] [address] Jocelyn Bender DO 230 [place] [address] Seasonal allergic rhinitis, unspecified trigger Social History [...] 1:00 PM EDT Clinical Support [facility] [address] [place] [phone] Sandra Boyd, TONY 10/10/2024 10:30 AM EDT Office Visit [facility] [address] [place] [phone] Pretty Molina MD [address] [place] [address] documented as of this encounter Visit Diagnoses Diagnosis Seasonal allergic rhinitis, unspecified trigger documented in this encounter Additional Health Concerns Assessment Noted Time PHQ-9 Depression Total Score: 12 023 3:08 PM EDT documented as of this encounter Care Teams Payroll Technician Relationship Specialty Start Date End Date Pretty Molina MD [address] [place] [phone] PCP - General Family Medicine 12/24/20 documented as of this encounter
--- OUTSIDE RECORDS SUMMARY | 2024-08-16 09:23 | XMS_ITS | Encounter Summary ---
Author Organization [employer] Address 75 [facility] 7t [place] [address] Care Team Providers Care Hydro Station Operator Name Role Phone Pretty Molina MD Primary Care Provide r Reason for Visit * Reason Comments Med Refill Encounter Details Date Type Department Care Team (Late st Contact Info) Description 11/24/2022 Refill [facility] 230 [place] [address] Eliezer Richardson DDS 230 [place] [address] Social History Tobacco Use Types Packs/Day Years [...] Description 10/04/2024 1:00 PM EDT Clinical Support [address] [phone] Sandra Boyd RN 10/10/2024 10:30 AM EDT Office Visit [address] [address] Pretty Molina MD [address] [place] [address] documented as of this encounter Visit Diagnoses Not on filedocumented in this encounter Additional Health Concerns Assessment Noted Time PHQ-9 Depression Total Score: 12 023 3:08 PM EDT documented as of this encounter Care Teams Hydro Station Operator Relationship Specialty Start Date End Date Pretty Molina MD [address] [place] [address] PCP - General Family Medicine 12/24/20 documented as of this encounter
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
--- OUTSIDE RECORDS SUMMARY | 2024-08-16 09:23 | XMS_ITS | Clinical Summary ---
Author Organization [employer] Address [address] [place] [address] 7[address] [place] [address] Care Team Providers Care Fleet Manager/Dispatch Name Role Phone Pretty Molina MD Primary [...] hyperglycemia, without long-term current use of insulin (CMS/[facility]) 1 kit 2 times daily. To monitor [...] hyperglycemia, without long-term current use of insulin ([facility]) Inject 1 each into the shoulder, thigh, or buttocks Once daily. 1 each 023 Active estradiol (Estrace) 0.1 MG/GM vaginal cream APPLY 1 GRAM TOPICALLY VAGINALLY 2 TIMES PER WEEK. 42.5 g 1 024 Active magnesium hydroxide (Milk of Magnesia) [...] tabletIndication s:Diabetes mellitus type 2 in nonobese ([facility]) TAKE 1 TABLET BY MOUTH EVERY MORNING BEFORE BREAKFAST 90 tablet 3 024 Active Diclofenac Sodium 1 % gelIndications:F ibromyalgia APPLY 2 GRAMS TOPICALLY TO AFFECTED AREA(S) EVERY TWELVE HOURS NEEDED 100 g 1 024 Active glucose blood (FREESTYLE LITE) test strip TEST BLOOD SUGAR 3 TIMES A DAY DIRECTED 100 strip 11 024 Active TRUEplus Lancets 33G misc TEST BLOOD SUGAR 3 TIMES DAILY 100 each 11 024 Active atorvastatin (Lipitor) 80 MG tabletIndication [...] mellitus with other specified complication, unspecified whether bed bug exterminator insulin use (CMS/[facility]) TAKE 1 TABLET BY MOUTH EVERY MORNING [...] BLOOD SUGAR THREE TIMES DAILY 100 each 025 Active Trulicity 1.5 MG/0.5ML solution auto-injectorInd ications:Type 2 diabetes mellitus with hyperglycemia, without long-term current use of insulin ([facility]) INJECT ONE PEN (=1.5MG) SUBCUTANEOUSLY ONCE A WEEK DIRECTED 2 mL 1 025 Active oxyCODONE-acetam inophen (Percocet) 5-325 MG tabletIndication s:Other chronic pain Take 1 tablet by mouth every 12 (twelve) hours if needed for severe pain for up to 28 days. Do not start before August 07, 2024. 56 tablet 025 2024 Active NIFEdipine XL (Procardia XL) 60 MG 24 hr tabletIndication s:Essential hypertension TAKE 1 TABLET BY MOUTH EVERYDAY AT NOON 90 tablet 3 Active Alcohol Swabs (Alcohol Prep) 70 % pads USE FOR TEST BLOOD SUGAR THREE TIMES DAILY 100 each 024 2024 Discontinued metFORMIN (Glucophage) 1000 MG tablet TAKE 1 TABLET BY MOUTH TWICE DAILY IN THE MORNING AND IN THE EVENING WITH FOOD 180 tablet 3 024 2024 Discontinued Aspirin Low Dose 81 MG EC tablet TAKE 1 TABLET BY MOUTH EVERYDAY AT NOON 90 tablet 3 024 2024 Discontinued NIFEdipine XL (Procardia XL) 60 MG 24 [...] hyperglycemia, without long-term current use of insulin ([facility]) Inject 0.5 mL (1.5 mg) under the [...] Encounters Date Type Department Care Team Description 08/15/2024 Refill [facility] MEDICINE [address] [place] [address] Pretty Molina MD Essential hypertension 08/09/2024 Patient Outreach [facility] MEDICINE [address], [place] [phone] Pretty Molina MD Care Coordination ([facility] f/u) 08/06/2024 Refill [facility] MEDICINE [address] [place] [address] Pretty Molina MD Other chronic pain 08/02/2024 Patient Outreach [facility] [address] [place] [address] Pretty Molina MD Care Coordination ([facility]) 08/02/2024 Patient Outreach [facility] [address] [place] [address] Pretty Molina MD Care Coordination ([facility]) 07/30/2024 Refill [facility]INE [address] [place] [address] Pretty Molina MD Type 2 diabetes mellitus with hyperglycemia, without long-term current use of insulin ([facility]) 07/27/2024 Patient Outreach [facility] MEDICINE [address] [place] [address] Pretty Molina MD Care Coordination ([facility]) 07/27/2024 Refill [facility] [address] [place] [address] Pretty Molina MD 07/20/2024 Orders Only GENERIC EXTERNAL DATA DEPARTMENT Provider, Generic External Data 07/19/2024 Refill [facility] [address] [place] [address] Pretty Molina MD 07/18/2024 Orders Only GENERIC EXTERNAL DATA DEPARTMENT Provider, Generic External Data 07/18/2024 Refill [facility] [address] [place] [address] Pretty Molina MD Dry eye syndrome of bilateral lacrimal glands 07/09/2024 Refill [facility] [address] [place] [address] Pretty Molina MD Other chronic pain 07/01/2024 Refill [facility] [address] [place] [address] Cristian Briones CNM 06/25/2024 Refill [facility] P[facility] [address] [place] [address] Pretty Molina MD Primary hypertension 06/20/2024 Refill [facility] [address] [place] [address] Noemi Schwartz MD Seasonal allergies 06/16/2024 Refill [facility] MEDICINE [address] [place] [address] Pretty Molina MD Neuropathy 06/11/2024 2:00 PM EST Office Visit [address] [address] Pretty Molina MD Chronic cough (Primary Dx); Type 2 diabetes mellitus with hyperglycemia, without long-term current use of insulin (CMS/HCC); Encounter for screening mammogram for malignant neoplasm of breast; Tobacco dependence; Encounter for preventive care 06/11/2024 Travel 06/08/[address] [address] Vicki Ghosh MA Chart Prep 06/07/[address] [address] Mauro Frye MA DME from [facility] 06/06/2024 Refill [facility] PEDS [address] [place], [place] [phone] Pretty Molina MD Type 2 diabetes mellitus with hyperglycemia, without long-term current use of insulin (CMS/HCC) 06/05/2024 10:30 AM EST Clinical Support [address] [address] Sandra Boyd, TONY Other chronic pain (Primary Dx) 06/05/2024 Refill [facility] MEDICINE [address] [place] [address] Sandra Boyd RN Other chronic pain 06/05/2024 Refill [facility] MEDICINE [address] [place] [address] Pretty Molina MD Type 2 diabetes mellitus with hyperglycemia, without long-term current use of insulin (CMS/HCC) 06/05/2024 Travel 06/05/2024 Telephone [facility] MEDICINE [address] [place] [address] Sandra Boyd, TONY Recommend ASTROBIOLOGIST Tier 3 05/30/2024 Patient Outreach [address] [address] Pretty Molina MD Pre-visit Planning (SDOH screening completed on 12/28/2023) 05/25/2024 Telephone [facility] MEDICINE [address] [place] [address] Mauro Frye MA DME from [facility] 05/22/2024 Refill [facility] MEDICINE [address] [place] [address] Pretty Molina MD 05/20/2024 Refill [facility] [address] [place], [place] [phone] Pretty Molina MD Type 2 diabetes mellitus with other specified complication, unspecified whether chcf insulin use ([facility]) from Last 3 Months Immunizations Name Administration [...] Description 10/04/2024 1:00 PM EDT Clinical Support [address] [address] Sandra Boyd RN 10/10/2024 10:30 AM EDT Office Visit [facility] MEDICINE [address] [place] [address] [place] [address] Pretty Molina MD [address] [place] [address] Health Maintenance Due Date Last Done Comments [...] Tobacco Screening 06/11/2025 06/11/2024 Mammogram 07/25/2025 07/25/2024, 100 09/2022, 03/10/2022, Additional history exists DTaP/Tdap/Td Vaccines (2 [...] hyperglycemia, without long-term current use of insulin ([facility]) POCT HECTOR-14 URINE DRUG SCREEN Routine 06/05/2024 10:01 AM EST Other chronic pain POCT GLYCATED HEMOGLOBIN, TOTAL Routine 04/05/2024 3:05 PM EDT Type 2 diabetes mellitus with hyperglycemia, without long-term current use of insulin ([facility]/HCC) LIPID PANEL WITH REFLEX TO DIRECT LDL [...] EST Narrative 08/03/2024 4:35 PM EST ? [facility] ? [address] ?[place] [address] ? Mammography Report ? Signed ? Patient: Azar Pascalrianakyara ?MR#: [id number] ?? [id number] ? : 1960 ?Acct:[id number] ? Age/Sex: 64 / F ?ADM Date: 07/25/24 ? Loc: HO.MAMMO ? Attending Dr: Pretty Zayas MD ? Ordering Physician: Pretty Molina MD ?Results: ?? 2Benign Findings ? Date of Service: 07/25/24 ?Follow Up: 1 Year From Orig ?? inal Mammogram ? Procedure(s): MM tomosynthesis screening BI ?? Accession Number(s): [id number] ? cc: Pretty Molina MD ? EXAMINATION: [...] ??Darlin Garcia DO ??08/03/2024 04:32 PM EST ? Dictated By: ?Darlin Garcia DO ? Signed By: ?<Electronically signed by Darlin Garcia, DO in OV> ? 08/03/24 1632 ? DD/ 1430 ? TD/TT: 07/25/24 1446 ? Bow String Maker: ? Procedure Note Tatyter, Image - 08/03/2024 [facility] [address] [place] [address] [place] [address] Mammography Report Signed Patient: Abraham Pascal#: [id number] : 1960cct:[id number] Age/Sex: 64 / FADM Date: 07/25/24 Loc: HO.MAMMO Attending Dr: Pretty Zayas MD Ordering Physician: Barciona Zayas,Pretty MDResults: 2Benign Findings Date of Service: 07/25/24Follow Up: 1 Year From Orig ina Mammogram Procedure(s): MM tomosynthesis screening BI Accession Number(s): [id number] cc: Pretty Molina MD EXAMINATION: MM SCREENING [...] Darlin Garcia DO 08/03/2024 04:32 PM EST Dictated By: Darlin Garcia DO Signed By: <Electronically signed by Darlin Garcia DO in OV> 08/03/24 1632 DD/ 1430 TD/TT: 07/25/24 1446 Bow String Maker: us Pretty Zayas MD IMG BI PROCEDURES Fin al Result * US Pelvis Transvaginal (07/21/2024 9:20 AM EST) Anatomical Region Laterality Modality Pelvis Ultrasound 07/21/2024 9:20 AM EST Narrative 07/21/2024 9:21 AM EST ? [facility] ?[address] ?[place] [address] ? Ultrasound Report ? Signed ? Patient: Pascal,Fredevinda ?MR#: [id number] ?? [id number] ? : 1960 ?Acct:[id number] ? Age/Sex: 64 / F ?ADM Date: 07/20/24 ? Loc: HO.US ? Attending Dr: Ramesh Gurrola MD ? Ordering Physician: Ramesh Gurrola MD ?? Date of Service: 07/20/24 ?? Procedure(s): US pelvic and transvaginal ?? Accession Number(s): [id number] ? cc: Pretty Molina MD; Ramesh Gurrola [...] signed by Eliceo David MD in OV> ?07/21/[address] ? DD/ 9 ? TD/TT: 07/21/[address] ? Bow String Maker: ? Procedure Note Gila Parr - 07/21/[address] [address] Ultrasound Report Signed Patient: Abraham Pascal#: [id number] : 1960cct:[id number] Age/Sex: 64 / FADM Date: 07/20/24 Loc: HO.US Attending Dr: Ramesh Gurrola MD Ordering Physician: Ramesh Gurrola MD Date of Service: 07/20/24 Procedure(s): US pelvic and transvaginal Accession Number(s): [id number] cc: Pretty Molina MD; Ramesh Gurrola MD [...] in OV> 07/21/24919 DD/ 9 TD/TT: 07/21/24919 Bow String Maker: us [facility] External Provider IMG US PROCEDURES Edited Result - Final * (ABNORMAL) Basic Metabolic Panel (07/20/2024 12:01 PM EST) Sodium 137 135 - 145 mmol/L [facility] Potassium 4.2 3.3 - 5.1 mmol/L [facility] Chloride 103 96 - 108 mmol/L [facility] Carbon Dioxide 24 22 - 29 mmol/L [facility] Anion Gap 14 12 - 20 [facility] Urea Nitrogen (BUN) 18(H) 9 - 16 mg/dL [facility] Creatinine, Serum 0.75 0.5 - 1.4 mg/dL [facility] Estimated Glomerular Filt Rate >60 [facility] Comment:Chronic Kidney Disea se: Estimated GFR < 60 mL/min/1.64s5Yuzffn Kidney Disease: Estimated GFR < 15 mL/min/1.73m2 Glucose 156(H) 60 - 115 mg/dL [facility] Calcium 9.4 8.4 - 10.2 mg/dL [facility] 07/20/2024 12:0 1 PM EST 07/20/2024 12:01 PM EST us Generic External Data Provider LAB BLOOD ORDERAB LES Final Result [facility] [address] [place] [address] [phone] * Hematoxylin and Eosin Stain (07/18/2024 12:02 PM EST) 07/18/2024 12:0 2 PM EST 07/19/2024 7:32 AM EST Narrative [facility] - 07/20/2024 11:43 AM EST ----- ------- Name: Violet Pascal ? Age/Sex: 64/F ? : 1960 Unit#: [id number] ?? Attend Dr: Ramesh Gurrola MD ?Re07/18/24 ?Status: DEP REF ? Location: HO.LNP ?Disch: ? ----- ------- SPEC : [id number] ?RECD: 07/19/24 ? STATUS: ??SOUT ? REQ NUM: [id number] ? YASMINE: 07/18/24 ? SUBM DR: Ramesh [...] Copies To: ?? Pretty Molina MD ?? [facility] ?? [address] ?? [place] [address] ?? [phone] ?? Ramesh Gurrola MD ?? [facility] ?? [address] [facility] [address] ?? [place] ?? [phone] ? CONTINUED ON NEXT PAGE ----- ------- Name: Violet Pascal ? Age/Sex: 64/F ? : 1960 Unit#: [id number] ?? Attend Dr: Ramesh Gurrola MD ?Re07/18/24 ?Status: DEP REF ? Location: HO.LNP ?Disch: ? ----- ------- SPEC : [id number] ?RECD: 07/19/24 ? STATUS: ??SOUT ? REQ NUM: [id number] ? YASMINE: 07/18/24-1201 ? SUBM DR: Ramesh Gurrola MD ? ENTERED: ??07/19/24 ?SP TYPE: Surgical ? OTHR : Pretty Molina MD ? ORDERED: ??HE Stain/2, Gross Micro L4 ? ----- ------- Signed (signature on file) Wally Harding MD 07/20/24 1143 ? ----- ------- ? END OF REPORT ? us Generic External Data Provider LAB BLOOD ORDERAB LES Final Result [facility] [address] [place] [address] [phone] * POCT Glucose (06/11/2024 1:58 PM EST) Glucose Blood, POC 103 60 - 200 mg/dL QC Media Lot # [id number] Lot# Expiration Date Blood Capillary blood specimen / Unknown 06/11/2024 1:58 PM EST Pretty Zayas MD POINT OF CARE TEST EN TER/EDIT ORDERABLES Final Result * POCT HECTOR-14 Urine Drug Screen (06/05/2024 10:01 AM EST) Pathologist [facility] Oxycodone Screen, Urine Positive Urine Urine specimen obtained by clean catch procedure / Unknown 06/05/2024 10:01 AM EST Narrative Sandra Boyd RN - 06/05/2024 10:01 AM EST UTOX cup Lot#[id number] Exp. 03/07/26 Internal Pass Control Pretty Zayas MD POINT OF CARE TEST EN TER/EDIT ORDERABLES Final Result * (ABNORMAL) POCT HGB A1C (04/05/2024 3:05 PM EDT) Pathologist [facility] Hemoglobin A1C 6.9(A) 4.0 - 6.0 % QC Media Lot # [id number] Lot# Expiration Date ,448,[id number] Blood 04/05/2024 3:05 PM EDT Pretty Zayas MD POINT OF CARE TEST EN TER/EDIT ORDERABLES Final Result * Lipid Panel with Reflex to Direct LDL (01/10/2024 8:26 AM EDT) Triglycerides 140 <150 mg/dL [facility] Comment:Desirable Triglyceri de: less than 150 mg/dLBorderline High Triglyceride 150-199 mg/dLHigh Triglyceride: 200-499 mg/dLVery High Triglyceride: greater than or equal to 5OO mg/dL Cholesterol 155 <200 mg/dL [facility] Comment:Desirable Cholestero l: less than 200 mg/dLBorderline High Cholesterol: 200-239 mg/dLHigh Cholesterol: greater than 239 mg/dL LDL Cholesterol Calculated 80 <100 mg/dL [facility] Comment:Desirable LDL: less than 100 mg/dLNear Optimal/Above Optimal LDL: 110- 129 mg/dLBorderline High LDL: 130-159 mg/dLHigh LDL: 160-189 mg/dLVery High LDL: greater than or equal to 190 mg/dL HDL Cholesterol 47 >40 mg/dL [facility] Comment:Desirable HDL: great er than 40 mg/dL Note: This HDL assay may give artificially low results in patients with liver disease. Blood 01/10/2024 8:26 AM EDT 01/10/2024 11:20 AM EDT us Pretty Zayas MD LAB BLOOD ORDERABLES Final Result [facility] [address] [place] [phone] * HPV mRNA E6/E7 w/Reflex to HPV Genotypes 16, 18/45 (04/18/2023 2:08 PM EST) HPV nRNA E6/E7 Not Detected Not Detected [facility] Comment:Methodology: Transcr iption-Mediated AmplificationThis assay detects E6/E7 viral messenger RNA (mRNA) from 14high-risk HPV types (16,18,31,33,35,39,45,51,52,56,58,59,66,68).Cervical sources are required for HPV testing.If a vaginal source from a patient who has had atotal hysterectomy with removal of cervix wassubmitted, please contact the testing laboratoryfor alternative testing options.For additional information, please refer tohttp://education.Tyche/faq/NOQ578k8(This link if provided for information/educational purposes only.)THIS TEST WAS PERFORMED AT:[employer] [place] [phone] ANNE MD HPV mRNA E6/E7 TNP [facility] HPV 16 RNA TNP [facility] HPV 18/45 RNA [facility] 04/18/2023 2:08 PM EST 04/19/2023 8:20 AM EST us Cristian Briones [facility] CYTOLOGY ORDERABLES F inal Result [facility] [address] [place] [address] [phone] * Pap Smear (04/18/2023 2:08 PM EST) 04/18/2023 2:0 8 PM EST 04/19/2023 8:20 AM EST Narrative [facility] - 04/26/2023 1:40 PM EST ----- ------- Name: Violet Pascal ? Age/Sex: 63/F ? : 1960 Unit#: [id number] ?? Attend Dr: CRISTIAN BRIONES [facility] ?Re04/18/23 ?Status: DEP REF ? Location: HO.HHCLNP ? Disch: ? ----- ------- SPEC : [id number] ?RECD: 11/07/23-0820 ? STATUS: ??SOUT ? REQ NUM: [id number] ? YASMINE: 04/18/23 ? SUBM DR: CRISTIAN [...] 66, 68) ?? HPV testing performed by [employer], [place], [place]. ??See reference laboratory ?? pion of the EMR for entire report. ?Clinical Information LMP: Postmenopausal Previous PAP test: Unknown date/findings ? Material Received ?? ThinPrep-Cervical ----- ------- Signed (signature on file) MARIOLA Walker ([facility]) 04/26/23 1340 ? ----- ------- ? END OF REPORT ? us Cristian Briones [facility] CYTOLOGY ORDERABLES F inal Result [facility] [address] [place] [phone] * Hepatitis C Antibody (02/03/2021 12:01 PM EDT) [facility] Hepatitis C Antibody Nonreactive Nonreactive [facility] Comment: Antibodies to HCV not detected; does not exclude early acute HCV infection. HIV AB/AG Nonreactive Nonreactive [facility] Comment: HIV-1 p24 Ag and/or [...] detection of this assay. ?? The [employer] Guide HIV Ag/Ab Combo assay result and supplemental assay results should be interpreted in conjunction with the patient's clinical presentation, history and other laboratory results. ??If the results are inconsistent with clinical evidence, additional testing is suggested to confirm the result. Hepatitis B Surface Antigen Negative Negative [facility] 02/03/2021 12:0 1 PM EDT us Ramesh Gurrola MD HISTORICAL/NON ORDERABLE LABS Fi nal Result [facility] [address] [place] [address], from Last 3 Months or Most Recently Relevant to Health Maintenance Insurance [facility] C3 Care Teams Fleet Manager/Dispatch Relationship Specialty Start Date End Date Pretty Molina MD [address] [place] [address] PCP - General Family Medicine 12/24/20
--- OUTSIDE RECORDS SUMMARY | 2024-08-16 09:23 | XMS_ITS | Encounter Summary ---
Author Organization [employer] Address [address] [facility] 7t [place] [address] Care Team Providers Care Grinder Set Up Operator Centerless Name Role Phone Pretty Molina MD Primary Care Provide r Reason for Visit * Reason Onset Date Comments Med Refill 01/05/2023 Encounter Details Date Type Department Care Team (Late st Contact Info) Description 01/05/2023 Telephone [facility] [address] [place] [address] Pretty Molina MD [address] [place] [address] Med Refill Social History Tobacco Use Types [...] Description 10/04/2024 1:00 PM EDT Clinical Support [address] [address] Sandra Boyd, RN 10/10/2024 10:30 AM EDT Office Visit [facility] [address] [place] [phone] Pretty Molina MD [address] [place] [phone] documented as of this encounter Visit Diagnoses Not on filedocumented in this encounter Additional Health Concerns Assessment Noted Time PHQ-9 Depression Total Score: 12 11/24/ 023 3:08 PM EDT documented as of this encounter Care Teams Grinder Set Up Operator Centerless Relationship Specialty Start Date End Date Pretty Molina MD [address] [place] [phone] PCP - General Family Medicine 12/24/20 documented as of this encounter
--- OUTSIDE RECORDS SUMMARY | 2024-08-16 09:23 | XMS_ITS | Encounter Summary ---
Author Organization [employer] Address [address] [facility] 7t [place] [address] Care Team Providers Care Skin Tanner Name Role Phone Pretty Molina MD Primary Care Provide r Reason for Visit * Reason Comments Med Refill Encounter Details Date Type Department Care Team (Late st Contact Info) Description 04/21/2024 Refill [facility] [address] [place], [place] [phone] Pretty Molina MD [address] [place] [address] Neuropathy Social History Tobacco Use Types Packs/Day [...] Description 10/04/2024 1:00 PM EDT Clinical Support [facility] [address] [place] [phone] Sandra Boyd RN 10/10/2024 10:30 AM EDT Office Visit [facility] [address] [place] [phone] Pretty Molina MD [address] [place] [phone] documented as of this encounter Visit Diagnoses Diagnosis Neuropathy Mononeuritis of unspecified site documented in this encounter Additional Health Concerns Assessment Noted Time PHQ-9 Depression Total Score: 4 01/06/20 24 2:22 PM EDT documented as of this encounter Care Teams Skin Tanner Relationship Specialty Start Date End Date Pretty Molina MD [address] [place] [phone] PCP - General Family Medicine 12/24/20 documented as of this encounter
--- OUTSIDE RECORDS SUMMARY | 2024-08-16 09:23 | XMS_ITS | Encounter Summary ---
Author Organization [employer] Address [address] [facility] 7t [place] [address] Care Team Providers Care Chemical Production Engineer Name Role Phone Pretty Molina MD [...] 10/04/2024 1:00 PM EDT Clinical Support [facility] [address] [place] [address] Sandra Boyd RN 10/10/2024 10:30 AM EDT Office Visit [address] [address] Pretty Molina MD [address] [place] [phone] documented as of this encounter Procedures Procedure Name Priority Date/Time Associated Diagnosis Comments US PELVIS TRANSVAGINAL Routine 07/21/2024 9:20 AM EST BASIC METABOLIC PANEL Routine 07/20/2024 12:01 PM EST documented in this encounter Results * US Pelvis Transvaginal (07/21/2024 9:20 AM EST) Anatomical Region Laterality Modality Pelvis Ultrasound 07/21/2024 9:20 AM EST Narrative 07/21/2024 9:21 AM EST ? [facility] ?[address] ?[place] [address] ? Ultrasound Report ? Signed ? Patient: Pascal,Fredevinda ?MR#: [id number] ?? [id number] ? : 1960 ?Acct:[id number] ? Age/Sex: 64 / F ?ADM Date: 02/07/25 ? Loc: HO.US ? Attending Dr: Ramesh Gurrola MD ? Ordering Physician: Ramesh Gurrola MD ?? Date of Service: 07/20/24 ?? Procedure(s): US pelvic and transvaginal ?? Accession Number(s): [id number] ? cc: Pretty Molina MD; Ramesh Gurrola [...] ? DD/ 9 ? TD/TT: 07/21/24919 ? Electrical Instrument Technician: ? Procedure Note Gila Parr - 07/21/2024 [place] [address] Ultrasound Report Signed Patient: bAraham Pascal#: [id number] : 1960cct:[id number] Age/Sex: 64 / FADM Date: 07/20/24 Loc: HO.US Attending Dr: Ramesh Gurrola MD Ordering Physician: Ramesh Gurrola MD Date of Service: 07/20/24 Procedure(s): US pelvic and transvaginal Accession Number(s): [id number] cc: Pretty Molina MD; Ramesh Gurrola MD [...] MD Signed By: <Electronically signed by Eliceo Davdi MD in OV> 07/21/24919 DD/ 9 TD/TT: 07/21/24919 Electrical Instrument Technician: us [facility] External Provider IMG US PROCEDURES Edited Result - Final * (ABNORMAL) Basic Metabolic Panel (07/20/2024 12:01 PM EST) Sodium 137 135 - 145 mmol/L [facility] Potassium 4.2 3.3 - 5.1 mmol/L [facility] Chloride 103 96 - 108 mmol/L [facility] Carbon Dioxide 24 22 - 29 mmol/L [facility] Anion Gap 14 12 - 20 [facility] Urea Nitrogen (BUN) 18(H) 9 - 16 mg/dL [facility] Creatinine, Serum 0.75 0.5 - 1.4 mg/dL [facility] Estimated Glomerular Filt Rate >60 [facility] Comment:Chronic Kidney Disea se: Estimated GFR < 60 mL/min/1.58z1Kzmmep Kidney Disease: Estimated GFR < 15 mL/min/1.73m2 Glucose 156(H) 60 - 115 mg/dL [facility] Calcium 9.4 8.4 - 10.2 mg/dL [facility] 07/20/2024 12:0 1 PM EST 07/20/2024 12:01 PM EST Generic External Data Provider LAB BLOOD ORDERAB LES Final Result [facility] [address] [place] [phone] documented in this encounter Visit Diagnoses Not on filedocumented in this encounter Additional Health Concerns Assessment Noted Time PHQ-9 Depression Total Score: 4 01/06/20 24 2:22 PM EDT documented as of this encounter Care Teams Chemical Production Engineer Relationship Specialty Start Date End Date Pretty Molina MD [address] [place] [address] PCP - General Family Medicine 12/24/20 documented as of this encounter
--- OUTSIDE RECORDS SUMMARY | 2024-08-16 09:23 | XMS_ITS | Encounter Summary ---
Author Organization [employer] Address [address] [facility] 7t [place] [address] Care Team Providers Care Propagation Manager Name Role Phone Pretty Molina MD [...] Description 10/04/2024 1:00 PM EDT Clinical Support [address] [address] Sandra Boyd RN 10/10/2024 10:30 AM EDT Office Visit [address] [address] Pretty Molina MD [address] [place] [phone] documented as of this encounter Procedures Procedure Name Priority Date/Time Associated Diagnosis Comments HEMATOXYLIN AND EOSIN STAIN Routine 07/18/2024 12:02 PM EST documented in this encounter Results * Hematoxylin and Eosin Stain (07/18/2024 12:02 PM EST) 07/18/2024 12:0 2 PM EST 07/19/2024 7:32 AM EST [facility] - 07/20/2024 11:43 AM EST ----- ------- Name: Violet Pascal ? Age/Sex: 64/F ? : 1960 Unit#: [id number] ?? Attend Dr: Ramesh Gurrola MD ?Re07/18/24 ?Status: DEP REF ? Location: HO.LNP ?Disch: ? ----- ------- SPEC : [id number] ?RECD: 07/19/24 ? STATUS: ??SOUT ? REQ NUM: [id number] ? YASMINE: 07/18/24-1201 ? SUBM DR: Ramesh [...] Copies To: ?? Pretty Molina MD ?? [facility] ?? [address] ?? [place] [address] ?? [phone] ?? Ramesh Gurrola MD ?? [facility] ?? [address] [facility] [address] ?? [place] [address] ?? [phone] ? CONTINUED ON NEXT PAGE ----- ------- Name: Violet Pascal ? Age/Sex: 64/F ? : 1960 Unit#: [id number] ?? Attend Dr: Ramesh Gurrola MD ?Re07/18/24 ?Status: DEP REF ? Location: HO.LNP ?Disch: ? ----- ------- SPEC : [id number] ?RECD: 07/19/24 ? STATUS: ??SOUT ? REQ NUM: [id number] ? YASMINE: 07/18/24-2 ? SUBM DR: Ramesh Gurrola MD ? ENTERED: ??07/19/24 ?SP TYPE: Surgical ? OTHR : Pretty Molina MD ? ORDERED: ??HE Stain/2, Gross Micro L4 ? ----- ------- Signed (signature on file) Wally Harding MD 07/20/24 1043 ? ----- ------- ? END OF REPORT ? us Generic External Data Provider LAB BLOOD ORDERAB LES Final Result [facility] [address] [place] [phone] [phone] documented in this encounter Visit Diagnoses Not on filedocumented in this encounter Additional Health Concerns Assessment Noted Time PHQ-9 Depression Total Score: 4 01/06/20 24 2:22 PM EDT documented as of this encounter Care Teams Propagation Manager Relationship Specialty Start Date End Date Pretty Molina MD [address] [place] [phone] PCP - General Family Medicine 12/24/20 documented as of this encounter
[2024-08-16 11:04] LABS: Cholesterol 148 mg/dL (<200); HDL Cholesterol 46 mg/dL (>40); LDL Cholesterol Calculated 81 mg/dL (<100); Triglycerides 106 mg/dL (<150)
== END 2024-08-16 08:44 | disposition home or self-care (01) ==
LOC: HO.LAB 08:43
PROVIDERS: PCP Internal Medicine
DX: E78.5 Hyperlipidemia, unspecified (principal)
CPT/HCPCS: 36415; 80061

== ENCOUNTER 2024-08-16 09:04 | Day surgery (SDC) | payer MEDICAID, SELFPAY ==
--- NOTE | 2024-08-08 14:36 | P.CONAN_ITS ---
Documented by User: Mary Santana NP 08/09/24 08:51 HPI - Anesthesia Eval Consult details Narrative: 64yo F for D&C Hysteroscopy,possible myomectomy,possible polypectomy Follows [facility] Cardiology for heart block, minimal CAD - coronary CTA ok 07/2024 - optimized to proceed with surgery per workload message Anesthesia Pre-Procedure Meds Is the patient on any of the following meds?: GLP1/DPP4 and SGLT2 Inhib PMFSH Active Problems Active Problems: All Active Problems Hyperlipidemia (Acute) Thickened endometrium (Acute) Uterine myoma (Acute) Low back pain (Acute) Pelvic pressure in female (Acute) Urinary frequency (Acute) Chest discomfort (Acute) Hemorrhoids (Acute) Tubular adenoma (Acute) Skin pain (Acute) Encounter for screening colonoscopy (Acute) Chronic constipation (Acute) Family history of cancer (Acute) Anal fissure (Acute) Papule of skin (Acute) Urinary urgency (Acute) UTI symptoms (Acute) Pelvic pain (Acute) Overactive bladder (Acute) Microscopic hematuria (Acute) Complex renal cyst (Acute) Heart block atrioventricular (Acute) Asymmetric septal hypertrophy (Acute) Essential hypertension (Acute) Heart palpitations (Acute) UTI (urinary tract infection) (Acute) Vulvovaginitis (Acute) Trochanteric bursitis of right hip (Acute) Breast pain, right (Acute) Nipple discharge (Acute) Late latent syphilis (Acute) Herpes genitalia (Acute) Microscopic hematuria (Acute) Female pelvic pain (Acute) Vulvar ulcer (Acute) Left forearm pain (Acute) Left wrist pain (Acute) Left hand pain (Acute) Diabetes (Acute) Renal cyst (Acute) Hematuria of unknown cause (Acute) S/P lumpectomy of breast (Acute 04/20/21) Past Medical History Medical History Asymmetric septal hypertrophy Heart block atrioventricular Chronic pain Depression Vascular insufficiency Lichen Hip pain Foot pain Foot callus Cubital tunnel syndrome Chronic vulvovaginitis Carpal tunnel syndrome Burn scar contracture of upper arm Blurring of visual image Mood disorder Hyperlipidemia Renal cyst Hematuria of unknown cause Smoker Arthritis Back pain Diabetes GERD (gastroesophageal reflux disease) Fibromyalgia Anxiety and depression MARK on CPAP Chronic sinusitis Asthma Elevated cholesterol HTN (hypertension) Family History Family History Father No problems noted. Mother No problems noted. Maternal Aunt Breast cancer Surgical History Surgical History Hx of cystoscopy S/P lumpectomy of breast (04/20/21) Hx of colonoscopy Hx of dilation and curettage H/O tubal ligation History of skin graft History of Problems with Anesthesia: No Social History Social History Household Members Other:: Friend Are you a primary animal care service worker to a significant other at home: No Do you presently have visiting nurse or other home services: No Alcohol intake: never Patient Tobacco Use Status: Current everyday Tobacco user Tobacco use type: Cigarette Cigarette Packs Per Day: 0.25 Cigarettes Per Day: 5 Years Smoked: 30 Use of substances other than those prescribed or required for medical reasons: No Have you been hit, kicked, punched, or otherwise hurt by someone within the past year? 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 Meds Allergies Allergy/AdvReac Type Severity Reaction Status Date / Time morphine [MORPHINE] Allergy Unknown UNKNOWN Verified 07/18/24 11:38 Home Medications ?Medication ?Instructions ?Recorded ?Confirmed ?Last Taken ?Type duloxetine 30 mg capsule,delayed 30 mg PO QPM 04/03/21 08/07/24 11/16/22 08:15 History release (Cymbalta) duloxetine 60 mg capsule,delayed 60 mg PO QAM 04/03/21 08/07/24 11/16/22 08:15 History release (Cymbalta) fluoride (sodium) 1.1 % dental 1 appl dental BID 04/03/21 08/07/24 Unknown History cream (SF 5000 Plus) hydrochlorothiazide 12.5 mg tablet 12.5 mg PO QAM 04/03/21 08/07/24 Unknown History albuterol sulfate 2.5 mg/3 mL 1 amp inhalation Q6H PRN Wheezing 04/13/21 08/07/24 Unknown History (0.083 %) solution for nebulization albuterol sulfate 90 mcg/actuation 2 puff inhalation Q4-6H PRN 04/13/21 08/07/24 04/20/21 08:30 History aerosol inhaler (ProAir HFA) Wheezing cholecalciferol (vitamin D3) 25 1 cap PO QAM 04/13/21 08/07/24 Unknown History mcg (1,000 unit) capsule (Vitamin D3) cyclosporine 0.05 % eye drops in a 1 drp ophthalmic (eye) BID 04/13/21 08/07/24 Unknown History dropperette (Restasis) fluticasone propionate 50 2 spray intranasal DAILY 04/13/21 08/07/24 04/20/21 08:30 History mcg/actuation nasal spray,suspension (Flonase Allergy Relief) lancets 33 gauge (TRUEplus Lancets) #100 ea 07/09/21 08/07/24 Unknown History ketoconazole 2 % shampoo 1 appl topical BID 09/22/21 08/07/24 Unknown History aspirin 81 mg tablet,delayed 81 mg PO DAILY 03/02/22 08/07/24 08/11/24 History release (Adult Low Dose Aspirin) cetirizine 10 mg tablet (Allergy 10 mg PO QAM 03/02/22 08/07/24 11/16/22 08:15 History Relief (cetirizine)) gabapentin 300 mg capsule 600 mg PO TID 03/02/22 08/07/24 11/16/22 08:15 History (Neurontin) glipizide 10 mg tablet 10 mg PO QAM 03/02/22 08/07/24 Unknown History omeprazole 20 mg capsule,delayed 20 mg PO QAM 03/02/22 08/07/24 11/16/22 08:15 History release loratadine 10 mg tablet (Claritin) 10 mg PO DAILY PRN allergies 07/06/22 08/07/24 Unknown History empagliflozin 25 mg tablet 25 mg PO QAM 07/09/22 08/07/24 08/11/24 History (Jardiance) metformin 1,000 mg tablet 1,000 mg PO BID 07/09/22 08/07/24 Unknown History risperidone 2 mg tablet (Risperdal) 2 mg PO BEDTIME 07/09/22 08/07/24 Unknown History celecoxib 200 mg capsule (Celebrex) 200 mg PO QAM 11/16/22 08/07/24 11/16/22 08:15 History losartan 100 mg tablet 100 mg PO QAM 12/27/22 08/07/24 Unknown History naloxone 4 mg/actuation nasal spray 1 spray intranasal DAILY PRN 12/27/22 08/07/24 Unknown History Opioid Overdose nifedipine 60 mg tablet,extended 60 mg PO DAILY 12/27/22 08/07/24 Unknown History release 24 hr oxycodone-acetaminophen 5 mg-325 1 tab PO BID PRN pain (scale score 12/27/22 08/07/24 Unknown History mg tablet (Endocet) 7-10) atorvastatin 80 mg tablet 80 mg PO BEDTIME 05/28/24 08/07/24 Unknown History blood sugar diagnostic (FreeStyle #10 ea 05/28/24 08/07/24 Unknown History Lite Strips) dulaglutide 0.75 mg/0.5 mL mg subcut QWEEK 05/28/24 08/07/24 Unknown History subcutaneous pen injector (Trulicity) estradiol 0.01% (0.1 mg/gram) 1 g vaginal 2XW 05/28/24 08/07/24 Unknown History vaginal cream hydroxyzine pamoate 25 mg capsule 25 - 50 mg PO BEDTIME PRN 05/28/24 08/07/24 Unknown History Exam Pertinent Lab Results Pertinent Lab Results: Laboratory Tests 04/24/24 07/20/24 15:11 12:01 WBC 12.7 H Hgb 13.6 Hct 39.8 Plt Count 329 Sodium 137 Potassium 4.2 Chloride 103 Carbon Dioxide 24 BUN 18 H Creatinine 0.75 Narrative Narrative: EKG 07/2024 EKG Details: EKG today showed normal sinus rhythm, 62 beats per minute, low-voltage QRS, nonspecific STT wave abnormalities, normal NE, corrected QT. 08/02/2024-coronary CTA showed minimal stenosis in the mid left main, minimal stenosis at the origin of the ramus. 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 ECHO 2022 Conclusions: - The left ventricular systolic function is normal. The calculated ejection fraction is 58% by biplane method. - Severe focal hypertrophy of the basal septum. - There is mild calcification of the aortic valve. - No obvious valvular pathology seen on this study. Assessment and Plan Assessment Anesthesia Assessment: Chart Reviewed Final Anesthetic Review History of Problems with Anesthesia: No Documented by User: Komal Boo MD 08/16/24 11:30 HPI - Anesthesia Eval Anesthesia Pre-Procedure Meds Is the patient on any of the following meds?: GLP1/DPP4 (Trulicity was over 1 month ago) and SGLT2 Inhib (Jardiance 08/11/24) If yes to any meds - educate patient: Pt education - increased risk of aspiration and/or euvolemic DKA PMFSH Active Problems Active Problems: All Active Problems Hyperlipidemia (Acute) Thickened endometrium (Acute) Uterine myoma (Acute) Low back pain (Acute) Pelvic pressure in female (Acute) Urinary frequency (Acute) Chest discomfort (Acute) Hemorrhoids (Acute) Tubular adenoma (Acute) Skin pain (Acute) Encounter for screening colonoscopy (Acute) Chronic constipation (Acute) Family history of cancer (Acute) Anal fissure (Acute) Papule of skin (Acute) Urinary urgency (Acute) UTI symptoms (Acute) Pelvic pain (Acute) Overactive bladder (Acute) Microscopic hematuria (Acute) Complex renal cyst (Acute) Heart block atrioventricular (Acute) Asymmetric septal hypertrophy (Acute) Essential hypertension (Acute) Heart palpitations (Acute) UTI (urinary tract infection) (Acute) Vulvovaginitis (Acute) Trochanteric bursitis of right hip (Acute) Breast pain, right (Acute) Nipple discharge (Acute) Late latent syphilis (Acute) Herpes genitalia (Acute) Microscopic hematuria (Acute) Female pelvic pain (Acute) Vulvar ulcer (Acute) Left forearm pain (Acute) Left wrist pain (Acute) Left hand pain (Acute) Diabetes (Acute) Renal cyst (Acute) Hematuria of unknown cause (Acute) S/P lumpectomy of breast (Acute 04/20/21) Smoker- last cigarette yesterday Past Medical History Medical History Asymmetric septal hypertrophy Heart block atrioventricular Chronic pain Depression Vascular insufficiency Lichen Hip pain Foot pain Foot callus Cubital tunnel syndrome Chronic vulvovaginitis Carpal tunnel syndrome Burn scar contracture of upper arm Blurring of visual image Mood disorder Hyperlipidemia Renal cyst Hematuria of unknown cause Smoker Arthritis Back pain Diabetes GERD (gastroesophageal reflux disease) Fibromyalgia Anxiety and depression MARK on CPAP Chronic sinusitis Asthma Elevated cholesterol HTN (hypertension) Family History Family History Father No problems noted. Mother No problems noted. Maternal Aunt Breast cancer Family history of problems with anesthesia: No Surgical History Surgical History Hx of cystoscopy S/P lumpectomy of breast (04/20/21) Hx of colonoscopy Hx of dilation and curettage H/O tubal ligation History of skin graft History of Problems with Anesthesia: No Social History Social History Household Members Other:: Friend Are you a primary animal care service worker to a significant other at home: No Do you presently have visiting nurse or other home services: No Alcohol intake: never Patient Tobacco Use Status: Current everyday Tobacco user Tobacco use type: Cigarette Cigarette Packs Per Day: 0.25 Cigarettes Per Day: 5 Years Smoked: 30 Use of substances other than those prescribed or required for medical reasons: No Have you been hit, kicked, punched, or otherwise hurt by someone within the past year? 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 Meds Allergies Allergy/AdvReac Type Severity Reaction Status Date / Time morphine [MORPHINE] Allergy Unknown UNKNOWN Verified 07/18/24 11:38 Home Medications ?Medication ?Instructions ?Recorded ?Confirmed ?Last Taken ?Type duloxetine 30 mg capsule,delayed 30 mg PO QPM 04/03/21 08/07/24 11/16/22 08:15 History release (Cymbalta) duloxetine 60 mg capsule,delayed 60 mg PO QAM 04/03/21 08/07/24 11/16/22 08:15 History release (Cymbalta) fluoride (sodium) 1.1 % dental 1 appl dental BID 04/03/21 08/07/24 Unknown History cream (SF 5000 Plus) hydrochlorothiazide 12.5 mg tablet 12.5 mg PO QAM 04/03/21 08/07/24 Unknown History albuterol sulfate 2.5 mg/3 mL 1 amp inhalation Q6H PRN Wheezing 04/13/21 08/07/24 Unknown History (0.083 %) solution for nebulization albuterol sulfate 90 mcg/actuation 2 puff inhalation Q4-6H PRN 04/13/21 08/07/24 04/20/21 08:30 History aerosol inhaler (ProAir HFA) Wheezing cholecalciferol (vitamin D3) 25 1 cap PO QAM 04/13/21 08/07/24 Unknown History mcg (1,000 unit) capsule (Vitamin D3) cyclosporine 0.05 % eye drops in a 1 drp ophthalmic (eye) BID 04/13/21 08/07/24 Unknown History dropperette (Restasis) fluticasone propionate 50 2 spray intranasal DAILY 04/13/21 08/07/24 04/20/21 08:30 History mcg/actuation nasal spray,suspension (Flonase Allergy Relief) lancets 33 gauge (TRUEplus Lancets) #100 ea 07/09/21 08/07/24 Unknown History ketoconazole 2 % shampoo 1 appl topical BID 09/22/21 08/07/24 Unknown History aspirin 81 mg tablet,delayed 81 mg PO DAILY 03/02/22 08/07/24 08/11/24 History release (Adult Low Dose Aspirin) cetirizine 10 mg tablet (Allergy 10 mg PO QAM 03/02/22 08/07/24 11/16/22 08:15 History Relief (cetirizine)) gabapentin 300 mg capsule 600 mg PO TID 03/02/22 08/07/24 11/16/22 08:15 History (Neurontin) glipizide 10 mg tablet 10 mg PO QAM 03/02/22 08/07/24 Unknown History omeprazole 20 mg capsule,delayed 20 mg PO QAM 03/02/22 08/07/24 11/16/22 08:15 History release loratadine 10 mg tablet (Claritin) 10 mg PO DAILY PRN allergies 07/06/22 08/07/24 Unknown History empagliflozin 25 mg tablet 25 mg PO QAM 07/09/22 08/07/24 08/11/24 History (Jardiance) metformin 1,000 mg tablet 1,000 mg PO BID 07/09/22 08/07/24 Unknown History risperidone 2 mg tablet (Risperdal) 2 mg PO BEDTIME 07/09/22 08/07/24 Unknown History celecoxib 200 mg capsule (Celebrex) 200 mg PO QAM 11/16/22 08/07/24 11/16/22 08:15 History losartan 100 mg tablet 100 mg PO QAM 12/27/22 08/07/24 Unknown History naloxone 4 mg/actuation nasal spray 1 spray intranasal DAILY PRN 12/27/22 08/07/24 Unknown History Opioid Overdose nifedipine 60 mg tablet,extended 60 mg PO DAILY 12/27/22 08/07/24 Unknown History release 24 hr oxycodone-acetaminophen 5 mg-325 1 tab PO BID PRN pain (scale score 12/27/22 08/07/24 Unknown History mg tablet (Endocet) 7-10) atorvastatin 80 mg tablet 80 mg PO BEDTIME 05/28/24 08/07/24 Unknown History blood sugar diagnostic (FreeStyle #10 ea 05/28/24 08/07/24 Unknown History Lite Strips) dulaglutide 0.75 mg/0.5 mL mg subcut QWEEK 05/28/24 08/07/24 Unknown History subcutaneous pen injector (Trulicity) estradiol 0.01% (0.1 mg/gram) 1 g vaginal 2XW 05/28/24 08/07/24 Unknown History vaginal cream hydroxyzine pamoate 25 mg capsule 25 - 50 mg PO BEDTIME PRN 05/28/24 08/07/24 Unknown History Exam Height,Weight and Vital Signs: Height 5 ft 2 in Weight 96 kg Vital Signs Temp Pulse Resp BP Pulse Ox O2 Del Method 08/16/24 10:10 97.9 F 55 16 139/64 94 Room Air Pertinent Lab Results Pertinent Lab Results: Laboratory Tests 04/24/24 07/20/24 15:11 12:01 WBC 12.7 H Hgb 13.6 Hct 39.8 Plt Count 329 Sodium 137 Potassium 4.2 Chloride 103 Carbon Dioxide 24 BUN 18 H Creatinine 0.75 Lab Results 08/16/24 Range/Units 10:29 POC Glucose 150 H (60-115) mg/dL Airway Mallampati Class: II TM Dist: >3cm Neck ROM: Full Loose/Missing/Broken Teeth: Yes (Missing some teeth. Denies broken or loose teeth) Heart: RRR Lungs: CTAB Assessment and Plan Assessment Anesthesia Assessment: Anesthesia Plan Discussed and Chart Reviewed Final Anesthetic Review Family History of Problems with Anesthesia: No History of Problems with Anesthesia: No NPO: Yes ASA Class: III Final Preanesthetic Review: No Changes in Pt Med Stat, Meds/Allgs Chart Reviewed, Consent Obtained/Reviewed and Anes Risks/Benef Reviewed Patient Risk: Intermediate Procedure Risk: Low Assessment/Block/Sedation in SS: Assess/Block/Sedation-SS Anesthetic Plan Anesthetic Plan: GA Disposition: Standard PACU
[2024-08-16] VITALS (9 sets, daily range): BP systolic 122–159; BP diastolic 64–127; PULSE 48–58; RESP 16; TEMP 36.3–36.8; O2SAT 94–98; BMI 38.7
[2024-08-16 10:33] LABS: Glucose, Whole Blood 150 mg/dL (60-115)
--- NOTE | 2024-08-16 10:49 | MHC.SHP ---
Pre-Procedural Eval Section A - 24 Hr Update-Section A only Date of Service: 08/16/24 The patient is an INPATIENT: No Changes since office visit: No Cold of Flu in the past 2 weeks, No New Medical Problems, No Changes in Medication and No Patient answered all questions The patient has been examined within 24 hours of the surgical procedure. The History & Physical has been completed within 30 days and I have reviewed it.: Yes Section B - Complete if H&P > 30 days Chief Complaint: Other specified abnormal uterine and vaginal bleed Allergies: Allergies Allergy/AdvReac Type Severity Reaction Status Date / Time morphine [MORPHINE] Allergy Unknown UNKNOWN Verified 07/18/24 11:38 Plan Diagnosis/Plan: Unchanged I have reviewed the history and physical and performed a pertinent physical examination on my patient. No changes have occurred unless specified. Time Spent With Patient Time: Total time managing care of this patient today ____ minutes.
--- NOTE | 2024-08-16 11:41 | PM.OP ---
Brief Operative Note Date of Service: 08/16/24 Pre-op diagnosis: Insufficient endometrium on EMB pathology Post-op diagnosis: other (Normal endometrial cavity) Procedure: Hysteroscopy D&C Surgeon: Ramesh Gurrola MD Anesthesia: GLMA Was an Outreach Assistant used for this Procedure?: No Estimated blood loss (mL): 0 Pathology: other (Endometrial Scrapping. ) Condition: stable Disposition: PACU
--- NOTE | 2024-08-16 11:42 | P.OP_ITS ---
Operative Note Operative Note Date of Service: 08/16/24 Narrative: Preop Diagnosis: Insufficient endometrium on EMB pathology Operation: Diagnostic Hysteroscopy, Dilataion & Curettage Post Op Diagnosis: Normal endometrial cavity QBL: Minimal Anesthesia: GLMA Surgeon: Ramesh Gurrola MD Pupil Personnel Services Director: None Complication: None Pathology: Endometrial Scrapings Procedure: The patient was put in the dorsal lithotomy position, scrubbed, and draped in the usual manner. A sterile speculum was inserted in the patient's vagina. The anterior lip of the cervix was grasped with a single tooth tenaculum. The cervix was dilated up to 5 mm, then the scope was inserted in the patient's uterus. Inspection revealed Normal endometrial cavity. The Myosure Reach device was used; the scope was removed from the endometrial cavity , sharp curettings was carried on with minimal to moderate amount of tissues retrieved. At the end of the procedure, all instruments were taken out of the patient uterine and vaginal cavity. The single tooth tenaculum was removed and homeostasis was assured using pressure,. The patient tolerated the procedure well and was transferred to the PACU in a stable condition.
== END 2024-08-16 13:19 | disposition home or self-care (01) ==
PROVIDERS: PCP Internal Medicine; Visit Provider Obstetrics & Gynecology
PROC: 0UDB8ZZ Extraction of Endometrium, Via Natural or Artificial Opening Endoscopic (ICD-10-PCS; CPT 58558; principal; 2024-08-16 11:30)
DX: N93.8 Other specified abnormal uterine and vaginal bleeding (principal); R87.618 Other abnormal cytological findings on specimens from cervix uteri; E78.5 Hyperlipidemia, unspecified; I44.30 Unspecified atrioventricular block; E11.9 Type 2 diabetes mellitus without complications; J45.909 Unspecified asthma, uncomplicated; G89.29 Other chronic pain; M79.7 Fibromyalgia; G47.33 Obstructive sleep apnea (adult) (pediatric); F41.8 Other specified anxiety disorders; Z88.5 Allergy status to narcotic agent; Z79.82 Long term (current) use of aspirin; Z79.51 Long term (current) use of inhaled steroids; Z79.84 Long term (current) use of oral hypoglycemic drugs; Z79.85 Long-term (current) use of injectable non-insulin antidiabetic drugs; Z79.899 Other long term (current) drug therapy; Z99.89 Dependence on other enabling machines and devices; F17.210 Nicotine dependence, cigarettes, uncomplicated
CPT/HCPCS: 58558; 82947; 88305; J1100; J1885; J2003; J2405; J2704; J3010

== ENCOUNTER → 2024-08-16 09:04 | Outpatient (BNV) | payer MEDICAID, SELFPAY | PROVIDERS: PCP Internal Medicine; Visit Provider Obstetrics & Gynecology | DX: N93.8 Other specified abnormal uterine and vaginal bleeding (principal) | CPT/HCPCS: 58558 ==

== ENCOUNTER → 2024-08-21 14:40 | Outpatient (REF) | payer MEDICAID, SELFPAY ==
--- NOTE | 2024-08-21 14:43 | CA_ITS ---
Transthoracic Echocardiogram Patient (Last, First, Middle): Violet Pascal, Gender: Female Date of : 1960 Age: 64 Procedure Date: 08/21/2024 Procedure Type: Transthoracic Echocardiogram Location: OP Height: 157.48 cm Weight: 95.26 kg BSA: 1.95 m2 Heart Rate: bpm BP: 138 / 84 mmHg Packer: TO Referring MD: [place] Braun BIT BENDER Symptoms: I10 - Essential (primary) hypertension Study Quality: Adequate ECG Rhythm: Sinus Conclusions: - The left ventricular systolic function is normal. The calculated ejection fraction is 56% by biplane method. - There is moderate septal asymmetric hypertrophy. - There is mild calcification of the aortic valve. Findings Left Ventricle Normal left ventricular cavity size. The left ventricular systolic function is normal. The calculated ejection fraction is 56% by biplane method. There is no evidence of regional wall motion abnormalities. Diastolic function is normal for age. There is moderate septal asymmetric hypertrophy. Right Ventricle Normal right ventricular cavity size and systolic function. Atria Both atria are normal in size. Aortic Valve There is a normal trileaflet aortic valve. There is mild calcification of the aortic valve. There is no aortic valve stenosis. There is no aortic valve regurgitation. Mitral Valve The mitral valve appears normal. There is no mitral valve regurgitation. There is no mitral valve stenosis. Pulmonic Valve The pulmonic valve is likely normal. Tricuspid Valve There is trace tricuspid valve regurgitation. Tricuspid regurgitation envelope is inadequate for calculation of right ventricular systolic pressure. Great Vessels The asc aorta is normal in size. Small plaque is seen in the sino tubular ridge. Venous The inferior vena cava is normal in size and collapses greater than 50% with inspiration. Pericardium/Pleural There is no evidence of pericardial effusion. Prior Study Comparison No significant change compared to prior study dated: 10/25/2022. Measurements 2D Linear Measurements IVSd: 1.35 0.6-0.9/0.6-1.0 cm LVIDd: 4.12 3.9-5.3/4.2-5.9 cm LVIDd Index: 2.11 2.4-3.2/2.2-3.1 cm/m2 LVIDs: 2.68 2.0-3.6 cm LVPWd: 0.92 0.7-1.1 cm LA Diam: 2.90 2.7-3.8/3.0-4.0 cm LAIDs Index: 1.49 1.5-2.3 cm/m2 LV Mass: 199.00 67-162/88-224 g LV Mass Index: 102.05 43-95/49-115 g/m2 LVOT Diam: 2.10 3.0+(-)1.3 cm 2D Systolic Function EF 4C: 55.10 >55% EF 2C: 58.50 >55% EF BiP: 56.20 >55% Mitral Valve MV Pk E: 0.42 MV PK A: 0.49 MV Decel Time: 255.00 E/A: 0.90 E'Lateral: 7.29 E'Medial: 4.57 E/E' Med: 9.20 E/E' Lat: 5.80 PHT: 75.00 MVA PHT: 2.93 Decel [place]: 1.65 Aortic Valve AoV Pk Beny: 1.22 AoV Mn Beny: 0.82 AoV VTI: 0.24 AoV Pk Grad: 6.00 Aov Mn Grad: 3.00 SAMANTHA Cont.VTI: 2.39 LVOT LVOT Pk Beny: 0.91 LVOT Mn Beny: 0.53 LVOT VTI: 0.17 LVOT Pk Grad: 3.00 LVOT Mn Grad: 1.00 LVOT Diam: 2.10 LVOT Area: 3.46 Diastolic Function MV Pk E: 0.42 MV Pk A: 0.49 E/A: 0.90 E'Medial: 4.57 E/E' Med: 9.20 E' Laterial: 7.29 E/E' Lat: 5.80 Right Ventricle TAPSE (mm): 21.30 TVS' Beny: 10.40 Tricuspid Valve RA Press: 3.00 Great Vessels Aorta Sinus of Valsalva: 3.05 2.0-3.5 cm Ao Asc: 3.40 2.1-3.4 cm Updated in Other Vendor System with Status of Final Maury Glover MD electronically signed on 08/22/2024 9:29:53 AM with status of Final
--- OUTSIDE RECORDS SUMMARY | 2024-08-21 17:58 | XMS_ITS | Encounter Summary ---
Author Organization [employer] Address [address] [facility] 7t [place] [address] Care Team Providers Care Online Community Manager Name Role Phone Pretty Molina MD Primary Care Provide r Reason for Visit * Reason Comments Care Coordination SDOH Encounter Details Date Type Department Care Team (Latest Contact Info) Description 08/02/2024 Patient Outreach [facility] [address] [place] [address] Pretty Molina MD [address] [place] [address] Care Coordination (SDOH) Social History Tobacco Use [...] this time. CHW LVM introducing herself from [facility] CM Department with CHW's name, department and direct contact number requesting call back. Will re-attempt to contact within 5 days. and address not confirmed. documented in this encounter Plan of Treatment Upcoming Encounters Date Type Department Care Team ([facility] st Contact Info) Description 10/04/2024 1:00 PM EDT Clinical Support [facility] [address] [place] [phone] Sandra Boyd RN 10/10/2024 10:30 AM EDT Office Visit [facility] [address] [place] [phone] Pretty Molina MD [address] [place] [address] documented as of this encounter Visit Diagnoses Not on filedocumented in this encounter Additional Health Concerns Assessment Noted Time PHQ-9 Depression Total Score: 4 01/06/20 2:22 PM EDT documented as of this encounter Care Teams Online Community Manager Relationship Specialty Start Date End Date Pretty Molina MD [address] [place] [address] PCP - General Family Medicine 12/24/20 documented as of this encounter
--- OUTSIDE RECORDS SUMMARY | 2024-08-21 17:58 | XMS_ITS | Encounter Summary ---
Author Organization [employer] Address [address] [facility] 7t [place] [address] Care Team Providers Care Leadership Development Instructor Name Role Phone Pretty Molina MD Primary Care Provide r Reason for Visit * Reason Comments Care Coordination SDOH f/u Encounter Details Date Type Department Care Team (Latest Contact Info) Description 08/09/2024 Patient Outreach [facility] [address] [place] [address] Pretty Molina MD [address] [place] [address] Care Coordination (SDOH f/u) Social History Tobacco [...] stated she has not received a call [facility] yet but will be on the lookout. CHW let patient know that if they don't call by next week then i will call them to do a status check. Patient agreed. No further questions or concerns. CHW reinforced direct contact information or CM for any additional questions or concerns and extended clinic hours on Mondays and Wednesdays, and Walk-In Urgent Care Located in [facility]. Patient provided with after-hours line for [facility], , which offer nighttime triage service and option to transfer to mining professionals provider ifneeded. Patient verbalizes understanding, and able to repeat back to com writer. A follow up call will be placed within 10 days, patient agrees with plan. documented in this encounter Plan of Treatment Upcoming Encounters Date Type Department Care Team ([facility] st Contact Info) Description 10/04/2024 1:00 PM EDT Clinical Support [address] [address] Sandra Boyd RN 10/10/2024 10:30 AM EDT Office Visit [facility] [address] [place] [address] Pretty Molina MD [address] [place] [address] documented as of this encounter Visit Diagnoses Not on filedocumented in this encounter Additional Health Concerns Assessment Noted Time PHQ-9 Depression Total Score: 4 01/06/20 24 2:22 PM EDT documented as of this encounter Care Teams Leadership Development Instructor Relationship Specialty Start Date End Date Pretty Molina MD [address] [place] [phone] PCP - General Family Medicine 12/24/20 documented as of this encounter
--- OUTSIDE RECORDS SUMMARY | 2024-08-21 17:58 | XMS_ITS | Encounter Summary ---
Author Organization [employer] Address [address] [facility] 7t [place] [address] Care Team Providers Care Warehouse Shipping Receiving Clerk Name Role Phone Pretty Molina MD Primary Care Provide r Encounter Details Date Type Department Care Team (Latest Contact Info) Description 05/31/2019 Abstract [facility] CONVERSION[facility] Dental, Provider, DDS Social History [...] Description 10/04/2024 1:00 PM EDT Clinical Support [facility] [address] [place] [phone] Sandra Boyd RN 10/10/2024 10:30 AM EDT Office Visit [facility] [address] [place] [phone] Pretty Molina MD [address] [place] [address] documented as of this encounter Visit Diagnoses Not on filedocumented in this encounter Care Teams Warehouse Shipping Receiving Clerk Relationship Specialty Start Date End Date Pretty Molina MD [address] [place] [phone] PCP - General Family Medicine 7/14/21 documented as of this encounter
--- OUTSIDE RECORDS SUMMARY | 2024-08-21 17:58 | XMS_ITS | Encounter Summary ---
Author Organization [employer] Address [address] [facility] 7t [place] [address] Care Team Providers Care Procedural Nurse Name Role Phone Pretty Molina MD Primary Care Provide r Reason for Visit * Reason Comments Med Refill Encounter Details Date Type Department Care Team (Late st Contact Info) Description 03/30/2023 Refill [facility] [address] [place], [place] [phone] Pretty Molina MD [address] [place] [address] Other chronic pain Social History Tobacco Use [...] 10/04/2024 1:00 PM EDT Clinical Support [facility] [address] [place] [phone] Sandra Boyd RN 10/10/2024 10:30 AM EDT Office Visit [facility] [address] [place] [phone] Pretty Molina MD [address] [place] [phone] documented as of this encounter Visit Diagnoses Diagnosis Other chronic pain documented in this encounter Additional Health Concerns Assessment Noted Time PHQ-9 Depression Total Score: 12 023 3:08 PM EDT documented as of this encounter Care Teams Procedural Nurse Relationship Specialty Start Date End Date Pretty Molina MD [address] [place] [phone] PCP - General Family Medicine 12/24/20 documented as of this encounter
--- OUTSIDE RECORDS SUMMARY | 2024-08-21 17:58 | XMS_ITS | Clinical Summary ---
Author Organization [employer] Address [address] [place] [address] 7t [place] [address] Care Team Providers Care Graphic Designer Name Role Phone Pretty Molina MD [...] hyperglycemia, without long-term current use of insulin (CMS/[facility]) 1 kit 2 times daily. To [...] hyperglycemia, without long-term current use of insulin ([facility]) Inject 1 each into the shoulder, [...] tabletIndication s:Diabetes mellitus type 2 in nonobese ([facility]) TAKE 1 TABLET BY MOUTH EVERY [...] HOURS NEEDED 90 mL 3 024 Active Jardiance 25 MGIndications:Ty pe 2 diabetes mellitus with other specified complication, unspecified whether rat exterminator insulin use (CMS/HCC) TAKE 1 TABLET BY MOUTH EVERY MORNING 90 tablet 1 024 Active omeprazole (PriLOSEC) [address] capsule TAKE 1 CAPSULE BY MOUTH EVERY MORNING 90 capsule 1 024 Active nicotine polacrilex (Nicotine Mini) 2 MG lozengeIndicatio ns:Tobacco dependence Dissolve 1 lozenge (2 mg) in the mouth if needed for smoking cessation. 100 lozenge 024 Active cetirizine (ZyrTEC) 10 MG tabletIndication s:Seasonal [...] SUGAR THREE TIMES DAILY 100 each 11 025 Active Trulicity 1.5 MG/0.5ML solution auto-injectorInd ications:Type 2 diabetes mellitus with hyperglycemia, without long-term current use of insulin ([facility]) INJECT ONE PEN (=1.5MG) SUBCUTANEOUSLY ONCE [...] AT NOON 90 tablet 3 025 Active albuterol (Ventolin HFA) 108 (90 Base) MCG/ACT inhaler INHALE 2 PUFFS BY MOUTH EVERY 4 TO 6 HOURS NEEDED 18 g 3 025 Active gabapentin (Neurontin) 300 MG capsuleIndicatio ns:Neuropathy TAKE 2 CAPSULES BY MOUTH THREE TIMES DAILY IN THE MORNING, EVENING AND BEDTIME 180 capsule 1 025 Active Alcohol Swabs (Alcohol Prep) 70 % pads USE FOR TEST BLOOD SUGAR THREE TIMES DAILY 100 each 11 024 2024 Discontinued NIFEdipine XL (Procardia XL) 60 MG 24 hr tabletIndication s:Essential hypertension TAKE 1 TABLET BY MOUTH EVERYDAY AT NOON 90 tablet 3 024 2024 Discontinued albuterol (Ventolin HFA) 108 (90 Base) MCG/ACT inhaler INHALE 2 PUFFS EVERY 4 TO 6 HOURS NEEDED 18 g 3 024 2024 Discontinued Dulaglutide 1.5 MG/0.5ML solution auto-injectorInd ications:Type 2 diabetes mellitus with hyperglycemia, without long-term current use of insulin ([facility]) Inject 0.5 mL (1.5 mg) under the skin 1 (one) time per week. 0.5 mL 1 024 2024 Discontinued gabapentin (Neurontin) 300 MG capsuleIndicatio ns:Neuropathy TAKE 2 CAPSULES BY MOUTH THREE TIMES DAILY IN THE MORNING, EVENING AND BEDTIME 180 capsule 1 025 2024 Discontinued oxyCODONE-acetam inophen (Percocet) 5-325 MG [...] Encounters Date Type Department Care Team Description 08/19/2024 Refill [facility] [address] [place] [address] Pretty Molina MD Neuropathy 08/17/2024 Refill [facility] [address] [place] [address] Pretty Molina MD 08/16/2024 Patient Outreach [facility] [address] [place], [place] [phone] Pretty Molina MD Care Coordination (SDOH) 08/16/2024 Orders Only GENERIC EXTERNAL DATA DEPARTMENT Provider, Generic External Data 08/15/2024 Refill [facility] [address] [place], [place] [phone] Pretty Molina MD Essential hypertension 08/09/2024 Patient Outreach [facility] [address] [place] [address] Pretty Molina MD Care Coordination ([facility] f/u) 08/06/2024 Refill [facility] [address] [place] [address] Pretty Molina MD Other chronic pain 08/02/2024 Patient Outreach [facility] [address] [place] [address] Pretty Molina MD Care Coordination ([facility]) 08/02/2024 Patient Outreach [facility] [address] [place] [address] Pretty Molina MD Care Coordination ([facility]) 07/30/2024 Refill [facility] [address] [place] [address] Pretty Molina MD Type 2 diabetes mellitus with hyperglycemia, without long-term current use of insulin ([facility]) 07/27/2024 Patient Outreach [facility] [address] [place] [address] Pretty Molina MD Care Coordination ([facility]) 07/27/2024 Refill [facility] [address] [place] [address] Pretty Molina MD 07/20/2024 Orders Only GENERIC EXTERNAL DATA DEPARTMENT Provider, Generic External Data 07/19/2024 Refill [facility] [address] [place] [address] Pretty Molina MD 07/18/2024 Orders Only GENERIC EXTERNAL DATA DEPARTMENT Provider, Generic External Data 07/18/2024 Refill [facility] [address] [place] [address] Pretty Molina MD Dry eye syndrome of bilateral lacrimal glands 07/09/2024 Refill [facility] [address] [place] [address] Pretty Molina MD Other chronic pain 07/01/2024 Refill [facility] [address] [place] [address] Cristian Briones CNM 06/25/2024 Refill [facility] [address] [place] [address] Pretty Molina MD Primary hypertension 06/20/2024 Refill [facility] [address] [place] [address] Noemi Schwartz MD Seasonal allergies 06/16/2024 Refill [facility] [address] [place] [address] Pretty Molina MD Neuropathy 06/11/2024 2:00 PM EST Office Visit [facility] [address] [place] [address] Pretty Molina MD Chronic cough (Primary Dx); Type 2 diabetes mellitus with hyperglycemia, without long-term current use of insulin (CMS/HCC); Encounter for screening mammogram for malignant neoplasm of breast; Tobacco dependence; Encounter for preventive care 06/11/2024 Travel 06/08/2024 Telephone [facility] [address] [place] [address] Vicki Ghosh MA Chart Prep 06/07/2024 Telephone [facility] [address] [place] [address] Mauro Frye MA DME from [facility] 06/06/2024 Refill [facility] [address] [place], [place] [phone] Pretty Molina MD Type 2 diabetes mellitus with hyperglycemia, without long-term current use of insulin (CMS/HCC) 06/05/2024 10:30 AM EST Clinical Support [facility] [address] [place] [address] Sandra Boyd, TONY Other chronic pain (Primary Dx) 06/05/2024 Refill [facility] [address] [place] [address] Sandra Boyd RN Other chronic pain 06/05/2024 Refill [facility] [address] [place] [address] Pretty Molina MD Type 2 diabetes mellitus with hyperglycemia, without long-term current use of insulin ([facility]) 06/05/2024 Travel 06/05/2024 Telephone [facility] [address] [place] [address] Sandra Boyd, TONY Recommend PROCESS IMPROVEMENT MANAGER Tier 3 05/30/2024 Patient Outreach [facility] [address] [place] [address] Pretty Molina MD Pre-visit Planning (SDOH screening completed on 12/28/2023) 05/25/[address] [facility] [address] [place] [address] Mauro Frye MA DME from [facility] from Last 3 Months Immunizations Name Administration [...] 1:00 PM EDT Clinical Support [facility] [address] [place] [phone] Sandra Boyd RN 10/10/2024 10:30 AM EDT Office Visit [facility] [address] [place] [phone] Pretty Molina MD [address] [place] [address] Health Maintenance Due Date Last Done Comments CT Colonography 1960 Colonoscopy 1961 Colorectal Cancer Screening 1960 FIT DNA/Cologuard 1961 FIT 1961 FOBT 1960 Sigmoidoscopy 1961 Diabetes: Foot Exam 1971 Eye Exam 1971 Alcohol/Substance Use Screening 1973 Pneumococcal Vaccine: 50+ Years (1 of 2 - PCV) 1980 COVID-19 Vaccine (3 - season) 2024 10/30/2020, 10/02/2020 Diabetes: Hemoglobin A1C 10/04/2024 024, 01/06/2024, 05/30/2023, Additional history exists SDOH Screening 12/27/2024 12/28/2023 Depression Screening 01/05/2025 01/06/2024, 01/06/20 24 Tobacco Screening 06/11/2025 06/11/2024 Mammogram 07/25/2025 07/25/2024, 1009/2022, 03/10/2022, Additional history exists Lipid Panel 08/16/2025 08/16/2024, 07, 10/11/2022, Additional history exists DTaP/Tdap/Td Vaccines (2 - [...] Diagnosis Comments HEMATOXYLIN AND EOSIN STAIN Routine 08/16/2024 11:21 AM EST GLUCOSE, WHOLE BLOOD Routine 08/16/2024 10:29 AM EST LIPID PANEL, STANDARD Routine 08/16/2024 9:01 AM EST BI MAMMOGRAM SCREENING TOMOSYNTHESIS BILATERAL Routine 07/25/2024 2:30 PM EST Encounter for screening mammogram for malignant neoplasm of breast US PELVIS TRANSVAGINAL Routine 9:20 AM EST BASIC METABOLIC PANEL Routine [...] without long-term current use of insulin (CMS/HCC) HPV MRNA E6/E7 REFLEX TO HPV 16, 18/45 Routine 04/18/2023 2:08 PM EST PAP SMEAR Routine 04/18/2023 2:08 PM EST [facility] HISTORICAL HEPATITIS C ANTIBODY Routine 02/03/2021 12:01 PM EDT from Last 3 Months or Most Recently Relevant to Health Maintenance Results * Hematoxylin and Eosin Stain (08/16/2024 11:21 AM EST) Only the most recent of2 resultswithin the time period is included. 08/16/2024 11:2 1 AM EST 08/16/2024 1:11 PM EST [facility] - 08/17/2024 4:59 PM EST ----- ------- Name: Violet Pascal ? Age/Sex: 64/F ? : 1960 Unit#: [id number] ?? Attend Dr: Ramesh Gurrola MD ?Re08/16/24 ?Status: DEP [facility] ? Location: HO.SSS ?Disch: ? ----- ------- SPEC : [id number] ? RECD: 08/16/24 ? STATUS: ??SOUT ? REQ NUM: [id number] ? YASMINE: 08/16/24 ? SUBM DR: Ramesh Gurrola MD ? ENTERED: ??08/16/24 ?SP TYPE: Surgical ? OTHR DR: Pretty Molina MD ? ORDERED: ??HE Stain/2, Gross Micro L4 ? Diagnosis ?? Endometrium, curettage: ??Scant superficial strips of benign endometrium; mucoinflammatory ?? material and blood. ? Comment: ??The endometrium is sparse; recommend repeat sampling, as clinically ?? appropriate. ?Clinical History Pre-Op Dx: ??Insufficient endometrium on EMB Post-Op Dx: Normal cavity ?Microscopic Description Microscopic sections reviewed. ? Material Received ?? EMC ? Gross Description Received in formalin, on Telfa, labeled ?EMC? are fragments of red- pink soft tissue mixed with mucus and clotted blood, forming in aggregate measuring 1.6 x 1.4 x 0.2 cm which is wrapped in lens paper and entirely submitted for microscopic examination, multiple pieces in cassette A. ??([facility]) Copies To: ?? Pretty Molina MD ?? [facility] ?? [address] ?? [place] [address] ?? [phone] ?? Ramesh Gurrola MD ?? [facility] Women's Services ?? [address] ?? [place] [address] ?? [phone] ? CONTINUED ON NEXT PAGE ----- ------- Name: Violet Pascal ? Age/Sex: 64/F ? : 1960 Unit#: [id number] ?? Attend Dr: Ramesh Gurrola MD ?Re08/16/24 ?Status: DEP SDC ? Location: HO.SSS ?Disch: ? ----- ------- SPEC : [id number] ? RECD: 08/16/24-1310 ? STATUS: ??SOUT ? REQ NUM: [id number] ? YASMINE: 08/16/24-1 ? SUBM DR: Ramesh Gurrola MD ? ENTERED: ??08/16/24-1313 ?SP TYPE: Surgical ? OTHR DR: Pretty Molina MD ? ORDERED: ??HE Stain/2, Gross Micro L4 ? ----- ------- Signed (signature on file) Wally Harding MD 08/17/24 549 ? ----- ------- ? END OF REPORT ? us Generic External Data Provider LAB BLOOD ORDERAB LES Final Result [facility] [address] [place] [address] [phone] * (ABNORMAL) Glucose, Whole Blood (08/16/2024 10:29 AM EST) Glucose, Whole Blood 150(H) 60 - 115 mg/dL [facility] Comment:METER #: [id number] 08/16/2024 10:2 9 AM EST 08/16/2024 10:33 AM EST Generic External Data Provider LAB BLOOD ORDERAB LES Final Result Performing Organization Address [facility] Co de Phone Number [facility] [address] [place] [phone] * Lipid Panel, Standard (08/16/2024 9:01 AM EST) Triglycerides 106 <150 mg/dL [facility] Comment:Desirable Triglyceri de: less than 150 mg/dLBorderline High Triglyceride 150-199 mg/dLHigh Triglyceride: 200-499 mg/dLVery High Triglyceride: greater than or equal to 5OO mg/dL Cholesterol 148 <200 mg/dL [facility] Comment:Desirable Cholestero l: less than 200 mg/dLBorderline High Cholesterol: 200-239 mg/dLHigh Cholesterol: greater than 239 mg/dL LDL Cholesterol Calculated 81 <100 mg/dL [facility] Comment:Desirable LDL: less than 100 mg/dLNear Optimal/Above Optimal LDL: 110- 129 mg/dLBorderline High LDL: 130-159 mg/dLHigh LDL: 160-189 mg/dLVery High LDL: greater than or equal to 190 mg/dL HDL Cholesterol 46 >40 mg/dL [facility] Comment:Desirable HDL: great er than 40 mg/dL Note: This HDL assay may give artificially low results in patients with liver disease. 08/16/2024 9:01 AM EST 08/16/2024 9:01 AM EST us Generic External Data Provider LAB BLOOD ORDERAB LES Final Result Performing Organization Address [facility] Co de Phone Number [facility] [address] [place] [phone] * BI Mammogram Screening Tomosynthesis Bilateral (07/25/2024 2:30 PM EST) Anatomical Region Laterality Modality Breast Bilateral Mammography 07/25/2024 2:30 PM EST Narrative 08/03/2024 4:35 PM EST ? [facility] [place] ? [address] ?[place] [address] ? Mammography Report ? Signed ? Patient: Violet Pascal ?MR#: [id number] ?? [id number] ? : 1960 ?Acct:[id number] ? Age/Sex: 64 / F ?ADM Date: 07/25/24 ? Loc: HO.MAMMO ? Attending Dr: Pretty Zayas MD ? Ordering Physician: Pretty Molina MD ?Results: ?? 2Benign Findings ? Date of Service: 07/25/24 ?Follow Up: 1 Year From Orig ?? inal Mammogram ? Procedure(s): MM tomosynthesis screening BI ?? Accession Number(s): [id number] ? cc: Pretty Molina MD ? EXAMINATION: [...] DD/ 1430 ? TD/TT: 07/25/24 1446 ? Inspector Balance Truing: ? Procedure Note Karolyn, Image - 08/03/2024 [facility] [address] [place] [address] Mammography Report Signed Patient: Abraham Pascal#: [id number] : 1960cct:[id number] Age/Sex: 64 / FADM Date: 07/25/24 Loc: ESTRELLA Attending Dr: Pretty Zayas MD Ordering Physician: Pretty Molina MDResults: 2Benign Findings Date of Service: 07/25/24Follow Up: 1 Year From Orig inal Mammogram Procedure(s): MM tomosynthesis screening BI Accession Number(s): [id number] cc: Pretty Molina MD EXAMINATION: MM SCREENING [...] 08/03/24 1632 DD/ 1430 TD/TT: 07/25/24 1446 Inspector Balance Truing: us Pretty Zayas MD IMG BI PROCEDURES Fin al Result * US Pelvis Transvaginal (07/21/2024 9:20 AM EST) Anatomical Region Laterality Modality Pelvis Ultrasound 07/21/2024 9:20 AM EST Narrative 07/21/2024 9:21 AM EST ? [facility] ?[address] ?[place] [address] ? Ultrasound Report ? Signed ? Patient: Pascal,Fredevinda ?MR#: [id number] ?? [id number] ? : 1960 ?Acct:[id number] ? Age/Sex: 64 / F ?ADM Date: 02//25 ? Loc: HO.US ? Attending Dr: Ramesh Gurrola MD ? Ordering Physician: Ramesh Gurrola MD ?? Date of Service: 07/20/24 ?? Procedure(s): US pelvic and transvaginal ?? Accession Number(s): [id number] ? cc: Pretty Molina MD; Ramesh Gurrola [...] ? DD/ 9 ? TD/TT: 07/21/24919 ? Inspector Balance Truing: ? Procedure Note Gila Parr - 07/21/2024 [place] [address] Ultrasound Report Signed Patient: Abraham Pascal#: [id number] : 1960cct:[id number] Age/Sex: 64 / FADM Date: 07/20/24 Loc: HO.US Attending Dr: Ramesh Gurrola MD Ordering Physician: Ramesh Gurrola MD Date of Service: 07/20/24 Procedure(s): US pelvic and transvaginal Accession Number(s): [id number] cc: Pretty Molina MD; Ramesh Gurrola MD [...] in OV> 07/21/24919 DD/ 9 TD/TT: 07/21/24919 Inspector Balance Truing: us [facility] External Provider IMG US PROCEDURES Edited Result - Final * (ABNORMAL) Basic Metabolic Panel (07/20/2024 12:01 PM EST) Sodium 137 135 - 145 mmol/L [facility] Potassium 4.2 3.3 - 5.1 mmol/L [facility] Chloride 103 96 - 108 mmol/L [facility] Carbon Dioxide 24 22 - 29 mmol/L [facility] Anion Gap 14 12 - 20 [facility] Urea Nitrogen (BUN) 18(H) 9 - 16 mg/dL [facility] Creatinine, Serum 0.75 0.5 - 1.4 mg/dL [facility] Estimated Glomerular Filt Rate >60 [facility] Comment:Chronic Kidney Disea se: Estimated GFR < 60 mL/min/1.54m6Jokjwo Kidney Disease: Estimated GFR < 15 mL/min/1.73m2 Glucose 156(H) 60 - 115 mg/dL [facility] Calcium 9.4 8.4 - 10.2 mg/dL [facility] 07/20/2024 12:0 1 PM EST 07/20/2024 12:01 PM EST us Generic External Data Provider LAB BLOOD ORDERAB LES Final Result [facility] [address] [place] [phone] * POCT Glucose (06/11/2024 1:58 PM EST) Pathologist [facility] Glucose Blood, POC 103 60 - 200 mg/dL QC Media Lot # [id number] Lot# Expiration Date 6172,025 Blood Capillary blood specimen / Unknown 06/11/2024 1:58 PM EST Result [facility] Pretty Zayas MD POINT OF CARE TEST EN TER/EDIT ORDERABLES Final Result * POCT HECTOR-14 Urine Drug Screen (06/05/2024 10:01 AM EST) Pathologist [facility] Oxycodone Screen, Urine Positive Urine Urine specimen obtained by clean catch procedure / Unknown 06/05/2024 10:01 AM EST Narrative Sandra Boyd RN - 06/05/2024 10:01 AM EST UTOX cup Lot#[id number] Exp. 03/07/26 Internal Pass Control Result [facility] Pretty Zayas MD POINT OF CARE TEST EN TER/EDIT ORDERABLES Final Result * (ABNORMAL) POCT HGB A1C (04/05/2024 3:05 PM EDT) [facility] Hemoglobin A1C 6.9(A) 4.0 - 6.0 % QC Media Lot # [id number] Lot# Expiration Date ,026 Blood 04/05/2024 3:05 PM EDT Result [facility] Pretty Zayas MD POINT OF CARE TEST EN TER/EDIT ORDERABLES Final Result * HPV mRNA E6/E7 w/Reflex to HPV Genotypes 16, 18/45 (04/18/2023 2:08 PM EST) [facility] HPV nRNA E6/E7 Not Detected Not Detected [facility] Comment:Methodology: Transcr iption-Mediated AmplificationThis assay detects E6/E7 viral messenger RNA (mRNA) from 14high-risk HPV types (16,18,31,33,35,39,45,51,52,56,58,59,66,68).Cervical sources are required for HPV testing.If a vaginal source from a patient who has had atotal hysterectomy with removal of cervix wassubmitted, please contact the testing laboratoryfor alternative testing options.For additional information, please refer tohttp://education.Enteye/faq/ZNZ783d5(This link if provided for information/educational purposes only.)THIS TEST WAS PERFORMED AT:[employer] [place] [id number] ANNE MD HPV mRNA E6/E7 [facility] HPV 16 RNA [facility] HPV 18/45 RNA [facility] 04/18/2023 2:08 PM EST 04/19/2023 8:20 AM EST Cristian Briones [facility] CYTOLOGY ORDERABLES F inal Result [facility] [address] [place] [address] [phone] * Pap Smear (04/18/2023 2:08 PM EST) 04/18/2023 2:08 PM EST 04/19/2023 8:20 AM EST Narrative [facility] - 04/26/2023 1:40 PM EST ----- ------- Name: Violet Pascal ? Age/Sex: 63/F ? : 1960 Unit#: [id number] ?? Attend Dr: CRISTIAN BRIONES CNM ?Re04/18/23 ?Status: DEP REF ? [facility] ? Disch: ? ----- ------- SPEC : [id number] ?RECD: 04/19/23 ? STATUS: ??SOUT ? REQ NUM: [id number] ? YASMINE: 04/18/230 ? SUBM DR: CRISTIAN BIRONES CNM ? ENTERED: ??04/19/23 ?SP TYPE: Pap [...] 66, 68) ?? HPV testing performed by [facility], [place], [place]. ??See reference laboratory ?? pion of the EMR for entire report. ?Clinical Information LMP: Postmenopausal Previous PAP test: Unknown date/findings ? Material Received ?? ThinPrep-Cervical ----- ------- Signed (signature on file) MARIOLA Walker (ASCP) 04/26/23 1340 ? ----- ------- ? END OF REPORT ? us Cristian REYES LAB CYTOLOGY ORDERABLES F inal Result [facility] [address] [place] [phone] * Hepatitis C Antibody (02/03/2021 12:01 PM EDT) Hepatitis C Antibody Nonreactive Nonreactive [facility] Comment: Antibodies to HCV not detected; does not exclude early acute HCV infection. HIV AB/AG Nonreactive Nonreactive [facility] Comment: HIV-1 p24 Ag and/or [...] detection of this assay. ?? The [employer] Switch Cleaner HIV Ag/Ab Combo assay result and supplemental assay results should be interpreted in conjunction with the patient's clinical presentation, history and other laboratory results. ??If the results are inconsistent with clinical evidence, additional testing is suggested to confirm the result. Hepatitis B Surface Antigen Negative Negative [facility] 02/03/2021 12:0 1 PM EDT us Ramesh Gurrola MD HISTORICAL/NON ORDERABLE LABS Fi nal Result [facility] [address] from Last 3 Months or Most Recently Relevant to Health Maintenance Insurance [place] [address] C3 Care Teams Graphic Designer Relationship Specialty Start Date End Date Pretty Molina MD [address] [place] [address] PCP - General Family Medicine 12/24/20
--- OUTSIDE RECORDS SUMMARY | 2024-08-21 17:58 | XMS_ITS | Encounter Summary ---
Author Organization [employer] Address [address] [place] [address] Care Team Providers Care Sketcher Name Role Phone Pretty Molina MD Primary Care Provide r Reason for Visit * Reason Comments Med Refill Encounter Details Date Type Department Care Team (Late st Contact Info) Description 07/05/2023 Refill [facility] [address] [place], [place] [phone] Pretty Molina MD [address] [place] [address] Social History Tobacco Use Types Packs/Day Years [...] 10/04/2024 1:00 PM EDT Clinical Support [facility] [address] [place] [phone] Sandra Boyd RN 10/10/2024 10:30 AM EDT Office Visit [facility] [address] [place] [phone] Pretty Molina MD [address] [place] [phone] documented as of this encounter Visit Diagnoses Not on filedocumented in this encounter Additional Health Concerns Assessment Noted Time PHQ-9 Depression Total Score: 12 023 3:08 PM EDT documented as of this encounter Care Teams Sketcher Relationship Specialty Start Date End Date Pretty Molina MD [address] [place] [phone] PCP - General Family Medicine 12/24/20 documented as of this encounter
--- OUTSIDE RECORDS SUMMARY | 2024-08-21 17:58 | XMS_ITS | Encounter Summary ---
Author Organization [employer] Address 75 [facility] 7t [place] [address] Care Team Providers Care Data Processing Systems Consultant Name Role Phone Pretty Molina MD Primary Care Provide r Reason for Visit * Reason Onset Date Comments Med Refill 08/06/2024 Encounter Details Date Type Department Care Team (Late st Contact Info) Description 08/06/2024 Refill [facility] 230 [place] [address] Pretty Molina MD 230 [place] [address] Other chronic pain Social History Tobacco Use [...] 5-325 MG tablet To be sent to: [facility] documented in this encounter Plan of Treatment Upcoming Encounters Date Type Department Care Team (Late st Contact Info) Description 10/04/2024 1:00 PM EDT Clinical Support [facility] [address] [place] [phone] Sandra Boyd RN 10/10/2024 10:30 AM EDT Office Visit [facility] [address] [place] [phone] Pretty Molina MD 230 [place] [address] documented as of this encounter Visit Diagnoses Diagnosis Other chronic pain documented in this encounter Additional Health Concerns Assessment Noted Time PHQ-9 Depression Total Score: 4 01/06/20 24 2:22 PM EDT documented as of this encounter Care Teams Data Processing Systems Consultant Relationship Specialty Start Date End Date Pretty Molina MD [address] [place] [address] PCP - General Family Medicine 12/24/20 documented as of this encounter
--- OUTSIDE RECORDS SUMMARY | 2024-08-21 17:58 | XMS_ITS | Encounter Summary ---
Author Organization [employer] Address 75 [facility] 7t [place] [address] Care Team Providers Care Supervisor Intelligence Analyst Name Role Phone Pretty Molina MD Primary Care Provide r Reason for Visit * Reason Comments Care Coordination SDOH Encounter Details Date Type Department Care Team (Latest Contact Info) Description 08/02/2024 Patient Outreach [facility] 230 [place] [address] Pretty Molina MD 230 [place] [address] Care Coordination (SDOH) Social History Tobacco Use [...] Wednesdays, and Walk-In Urgent Care Located in [facility]. Patient provided with after-hours line for [facility], , which offer nighttime triage service and option to transfer to configuration technician provider ifneeded. Patient verbalizes understanding, and able to repeat back to tech writer. A follow up call will be placed within 10 days, patient agrees with plan. documented in this encounter Plan of Treatment Upcoming Encounters Date Type Department Care Team ([facility] st Contact Info) Description 10/04/2024 1:00 PM EDT Clinical Support [facility] [address] [place] [address] [phone] Sandra Boyd, RN 10/10/2024 10:30 AM EDT Office Visit [facility] [address] [place], [place] [phone] Pretty Molina MD [address] [place] [phone] documented as of this encounter Visit Diagnoses Not on filedocumented in this encounter Additional Health Concerns Assessment Noted Time PHQ-9 Depression Total Score: 4 01/06/20 24 2:22 PM EDT documented as of this encounter Care Teams Supervisor Intelligence Analyst Relationship Specialty Start Date End Date Pretty Molina MD [address] [place] [address] [phone] PCP - General Family Medicine 12/24/20 documented as of this encounter
--- OUTSIDE RECORDS SUMMARY | 2024-08-21 17:58 | XMS_ITS | Encounter Summary ---
Author Organization [employer] Address 75 [facility] 7t [place] [address] Care Team Providers Care Longwall Shearer Operator Name Role Phone Pretty Molina MD Primary Care Provide r Encounter Details Date Type Department Care Team ([facility] Contact Info) Description 09/01/2022 Orders Only [facility] MED & PEDS [address] [place], [place] [phone] Jocelyn Fleming LPN Social History Tobacco Use [...] [facility] MEDICINE [address] [place] [phone] Sandra Boyd RN 10/10/2024 10:30 AM EDT Office Visit [facility] MEDICINE [address] [place] [phone] Pretty Molina MD 230 [place], [place] [phone] documented as of this encounter Visit Diagnoses Not on filedocumented in this encounter Care Teams Longwall Shearer Operator Relationship Specialty Start Date End Date Pretty Molina MD 230 [place] [address] PCP - General Family Medicine 12/24/20 documented as of this encounter
--- OUTSIDE RECORDS SUMMARY | 2024-08-21 17:58 | XMS_ITS | Encounter Summary ---
Author Organization [employer] Address 75 [facility] 7t [place] [address] Care Team Providers Care Automotive Starter Repairer Name Role Phone Pretty Molina MD Primary Care Provide r Reason for Visit * Reason Comments Med Refill Encounter Details Date Type Department Care Team (Late st Contact Info) Description 06/06/2024 Refill [facility] CHC MED & PEDS 505 [place] [address] Pretty Molina MD 230 [place] [address] Type 2 diabetes mellitus with hyperglycemia, without long-term current use of insulin ([facility]) Social History Tobacco Use Types Packs/Day [...] 1:00 PM EDT Clinical Support [facility] MEDICINE [address] [place] [phone] Sandra Boyd RN 10/10/2024 10:30 AM EDT Office Visit [facility] [address] [place] [phone] Pretty Molina MD [address] [place] [phone] documented as of this encounter Visit Diagnoses Diagnosis Type 2 diabetes mellitus with hyperglycemia, without long-term current use of insulin ([facility]) documented in this encounter Additional Health Concerns Assessment Noted Time PHQ-9 Depression Total Score: 4 01/06/20 24 2:22 PM EDT documented as of this encounter Care Teams Automotive Starter Repairer Relationship Specialty Start Date End Date Pretty Molina MD [address] [place] [phone] PCP - General Family Medicine 12/24/20 documented as of this encounter
--- OUTSIDE RECORDS SUMMARY | 2024-08-21 17:58 | XMS_ITS | Encounter Summary ---
Author Organization [employer] Address 75 [facility] 7t [place] [address] Care Team Providers Care Zoo Caretaker Name Role Phone Pretty Molina MD Primary Care Provide r Reason for Visit * Reason Comments Med Refill Encounter Details Date Type Department Care Team (Late st Contact Info) Description 07/27/2024 Refill [facility] MED[facility]INE 230 [place] [address] Pretty Molina MD 230 [place] [address] Social History Tobacco Use Types Packs/Day Years [...] Description 10/04/2024 1:00 PM EDT Clinical Support [facility] MEDICINE [address] [place] [phone] Sandra Boyd RN 10/10/2024 10:30 AM EDT Office Visit [facility] [address] [place] [phone] Pretty Molina MD [address] [place] [address] documented as of this encounter Visit Diagnoses Not on filedocumented in this encounter Additional Health Concerns Assessment Noted Time PHQ-9 Depression Total Score: 4 01/06/20 24 2:22 PM EDT documented as of this encounter Care Teams Zoo Caretaker Relationship Specialty Start Date End Date Pretty Molina MD [address] [place] [phone] PCP - General Family Medicine 12/24/20 documented as of this encounter
--- OUTSIDE RECORDS SUMMARY | 2024-08-21 17:58 | XMS_ITS | Encounter Summary ---
Author Organization [employer] Address 75 [facility] 7t [place] [address] Care Team Providers Care Resident Intern Name Role Phone Pretty Molina MD Primary Care Provide r Reason for Visit * Reason Comments Care Coordination SDOH Encounter Details Date Type Department Care Team (Latest Contact Info) Description 07/27/2024 Patient Outreach [facility] 230 [place] [address] Pretty Molina MD 230 [place] [address] Care Coordination (SDOH) Social History Tobacco Use [...] this time. CHW LVM introducing herself from [facility] CM Department with CHW's name, department and direct contact number requesting call back. Will re-attempt to contact within 5 days. and address not confirmed. documented in this encounter Plan of Treatment Upcoming Encounters Date Type Department Care Team (Late st Contact Info) Description 10/04/2024 1:00 PM EDT Clinical Support [facility] [address] [place] [phone] Sandra Boyd RN 10/10/2024 10:30 AM EDT Office Visit [facility] [address] [place] [phone] Pretty Molina MD 230 [place] [address] documented as of this encounter Visit Diagnoses Not on filedocumented in this encounter Additional Health Concerns Assessment Noted Time PHQ-9 Depression Total Score: 4 01/06/20 24 2:22 PM EDT documented as of this encounter Care Teams Resident Intern Relationship Specialty Start Date End Date Pretty Molina MD 230 [place] [address] PCP - General Family Medicine 12/24/20 documented as of this encounter
--- OUTSIDE RECORDS SUMMARY | 2024-08-21 17:58 | XMS_ITS | Encounter Summary ---
Author Organization [employer] Address 75 [facility] 7t [place] [address] Care Team Providers Care Credit Risk Specialist Name Role Phone Pretty Molina MD Primary Care Provide r Reason for Visit * Reason Comments Med Refill Encounter Details Date Type Department Care Team (Late st Contact Info) Description 05/10/2023 Refill [facility] 230 [place], [place] [phone] Pretty Molina MD 230 [place], [place] [phone] Other chronic pain Social History Tobacco Use [...] 1:00 PM EDT Clinical Support [facility] [address] [place] [phone] Sandra Boyd RN 10/10/2024 10:30 AM EDT Office Visit [facility] [address] [place] [phone] Pretty Molina MD [address] [place] [phone] documented as of this encounter Visit Diagnoses Diagnosis Other chronic pain documented in this encounter Additional Health Concerns Assessment Noted Time PHQ-9 Depression Total Score: 12 023 3:08 PM EDT documented as of this encounter Care Teams Credit Risk Specialist Relationship Specialty Start Date End Date Pretty Molina MD [address] [place] [phone] PCP - General Family Medicine 12/24/20 documented as of this encounter
--- OUTSIDE RECORDS SUMMARY | 2024-08-21 17:58 | XMS_ITS | Encounter Summary ---
Author Organization [employer] Address 75 [facility] 7t [place] [address] Care Team Providers Care Commercial Fisherman Name Role Phone Pretty Molina MD Primary Care Provide r Encounter Details Date Type Department Care Team (Latest Contact Info) Description 2019 Abstract [facility] CONVERSIONS Dental, Provider, DDS Social [...] Description 10/04/2024 1:00 PM EDT Clinical Support [facility] MEDICINE [address] [place] [phone] Sandra Boyd RN 10/10/2024 10:30 AM EDT Office Visit [facility] MEDICINE [address] [place] [phone] Pretty Molina MD 230 [place] [address] documented as of this encounter Visit Diagnoses Not on filedocumented in this encounter Care Teams Commercial Fisherman Relationship Specialty Start Date End Date Pretty Molina MD [address] [place] [phone] PCP - General Family Medicine 7/14/21 documented as of this encounter
--- OUTSIDE RECORDS SUMMARY | 2024-08-21 17:58 | XMS_ITS | Clinical Summary ---
Author Organization 175 [facility] Address 175 [place] [address] Phone Care Team Providers Care Cable Operator Name Role Phone Pretty Molina MD [...] by mouth 2 times daily. Active ceramide 1,3,1-BI-styh-hyal ur (CeraVe PM) lotion,extended release Apply topically. [...] 2 times daily. Active miscellaneous medical supply [facility] by Does not apply route. Active NICOTINE, [...] Team Description 05/25/2024 Telephone Orthopedic Surgery - [place] 250 [address] [facility] 250 [place] [address] Maria Isabel More [place] from Last 3 Months Surgical History Surgery Date Site/Laterality Comments TUBAL LIGATION PROCEDURE: HISTORICAL TUBAL LIGATION OTHER SURGICAL HISTORY PROCEDURE: CT GRAFT COMPOSITE W/PRIMARY CLOSURE DONOR AREA Medical [...] Results * Annual BMP Blood Test (01/10/2024) [facility] Annual BMP Blood Test abstracted [facility] Provider HEALTH MAINTENANCE Final Result * Lipid panel (01/10/2024) [facility] Triglycerides 0 mg/dL Comment:no interpretation Cholesterol 0 mg/dL Comment:no interpretation HDL 0 mg/dL Comment:no interpretation LDL Cholesterol 0 mg/dL Comment:no interpretation Blood Venous blood specimen / Unknown [facility] Provider LAB BLOOD ORDERABLES Teresa l Result * Cervical Cancer Screening: HPV (04/18/2023) [facility] Cervical Cancer Screening: HPV No interpreta tion,abstr acted [facility] Provider HEALTH MAINTENANCE Final Result * Hemoglobin A1c (07/20/2021) [facility] Hemoglobin A1C 0.0 % Comment:no interpretation Blood Venous blood specimen / Unknown [facility] Provider LAB BLOOD ORDERABLES Teresa l Result from Last 3 Months or Most Recently Relevant to Health Maintenance Insurance MEDICAID - [place] Care Teams Cable Operator Relationship Specialty Start Date End Date Pretty Molina MD [address] [place] [phone] PCP - General 06/01/23
--- OUTSIDE RECORDS SUMMARY | 2024-08-21 17:58 | XMS_ITS | Encounter Summary ---
Author Organization [employer] Address 75 [facility] 7t [place] [address] Care Team Providers Care Photo Intern Name Role Phone Pretty Molina MD Primary Care Provide r Reason for Visit * Reason Comments Med Refill Encounter Details Date Type Department Care Team (Late st Contact Info) Description 05/02/2023 Refill [facility] MEDICINE 230 [place] [address] Jocelyn Bender DO 230 [place] [address] Seasonal allergic rhinitis, unspecified trigger Social History [...] Description 10/04/2024 1:00 PM EDT Clinical Support [facility]ICINE [address] [place] [phone] Sandra Boyd RN 10/10/2024 10:30 AM EDT Office Visit [facility] [address] [place] [phone] Pretty Molina MD [address] [place] [phone] documented as of this encounter Visit Diagnoses Diagnosis Seasonal allergic rhinitis, unspecified trigger documented in this encounter Additional Health Concerns Assessment Noted Time PHQ-9 Depression Total Score: 12 023 3:08 PM EDT documented as of this encounter Care Teams Photo Intern Relationship Specialty Start Date End Date Pretty Molina MD [address] [place] [phone] PCP - General Family Medicine 12/24/20 documented as of this encounter
--- OUTSIDE RECORDS SUMMARY | 2024-08-21 17:58 | XMS_ITS | Encounter Summary ---
Author Organization [employer] Address 75 [facility] 7t [place] [address] Care Team Providers Care Database Architect Name Role Phone Pretty Molina MD Primary Care Provide r Encounter Details Date Type Department Care Team (Latest Contact Info) Description 04/21/2020 Abstract [facility] CONVERSIONS Dental, Provider, DDS Social [...] Description 10/04/2024 1:00 PM EDT Clinical Support [facility] MEDICINE [address] [place] [phone] Sandra Boyd RN 10/10/2024 10:30 AM EDT Office Visit [facility] MEDICINE [address] [place] [phone] Pretty Molina MD 230 [place] [address] documented as of this encounter Visit Diagnoses Not on filedocumented in this encounter Care Teams Database Architect Relationship Specialty Start Date End Date Pretty Molina MD [address] [place] [phone] PCP - General Family Medicine 7/14/21 documented as of this encounter
--- OUTSIDE RECORDS SUMMARY | 2024-08-21 17:58 | XMS_ITS | Encounter Summary ---
Author Organization [employer] Address 75 [facility] 7t [place] [address] Care Team Providers Care Application Development Consultant Name Role Phone Pretty Molina MD Primary Care Provide r Reason for Visit * Reason Comments Med Refill Encounter Details Date Type Department Care Team ([facility] st Contact Info) Description 03/23/2023 Refill [facility] CH[facility] MED & PEDS 505 [place] [address] Pretty Molina MD 230 [place] [address] Neuropathy Social History Tobacco Use Types Packs/Day [...] PM EDT Clinical Support [facility]INE [address] [place] [phone] Sandra Boyd RN 10/10/2024 10:30 AM EDT Office Visit [facility] [address] [place] [phone] Pretty Molina MD [address] [place] [phone] documented as of this encounter Visit Diagnoses Diagnosis Neuropathy Mononeuritis of unspecified site documented in this encounter Additional Health Concerns Assessment Noted Time PHQ-9 Depression Total Score: 12 023 3:08 PM EDT documented as of this encounter Care Teams Application Development Consultant Relationship Specialty Start Date End Date Pretty Molina MD [address] [place] [phone] PCP - General Family Medicine 12/24/20 documented as of this encounter
--- OUTSIDE RECORDS SUMMARY | 2024-08-21 17:58 | XMS_ITS | Encounter Summary ---
Author Organization [employer] Address 75 [facility] 7t [place] [address] Care Team Providers Care Bill Adjuster Name Role Phone Pretty Molina MD Primary Care Provide r Reason for Visit * Reason Comments Med Refill Encounter Details Date Type Department Care Team (Late st Contact Info) Description 02/28/2023 Refill [facility] MEDICINE [address] [place] [address] [phone] Pretty Molina MD 230 [place] [address] Social History Tobacco Use Types Packs/Day Years [...] Description 10/04/2024 1:00 PM EDT Clinical Support [facility] MEDICINE [address] [place] [address] [phone] Sandra Boyd RN 10/10/2024 10:30 AM EDT Office Visit [facility] MEDICINE [address] [place] [phone] Pretty Molina MD 230 [place], [place] [phone] documented as of this encounter Visit Diagnoses Not on filedocumented in this encounter Additional Health Concerns Assessment Noted Time PHQ-9 Depression Total Score: 12 11/24/ 023 3:08 PM EDT documented as of this encounter Care Teams Bill Adjuster Relationship Specialty Start Date End Date Pretty Molina MD 230 [place] [address] PCP - General Family Medicine 12/24/20 documented as of this encounter
--- OUTSIDE RECORDS SUMMARY | 2024-08-21 17:58 | XMS_ITS | Encounter Summary ---
Author Organization [employer] Address 75 [facility] 7t [place] [address] Care Team Providers Care Guide Dog Trainer Name Role Phone Pretty Molina MD Primary Care Provide r Reason for Visit * Reason Comments Med Refill Encounter Details Date Type Department Care Team (Late st Contact Info) Description 08/15/2024 Refill [facility] MEDICINE 230 [place], [place] [phone] Pretty Molina MD 230 [place] [address] Essential hypertension Social History Tobacco Use Types [...] Clinical Support [facility] MEDICINE [address] [place] [phone] Sandra Boyd RN 10/10/2024 10:30 AM EDT Office Visit [facility] MEDICINE [address] [place] [phone] Pretty Molina MD [address] [place] [address] documented as of this encounter Visit Diagnoses Diagnosis Essential hypertension Unspecified essential hypertension documented in this encounter Additional Health Concerns Assessment Noted Time PHQ-9 Depression Total Score: 4 01/06/20 24 2:22 PM EDT documented as of this encounter Care Teams Guide Dog Trainer Relationship Specialty Start Date End Date Pretty Molina MD [address] [place] [phone] PCP - General Family Medicine 12/24/20 documented as of this encounter
--- OUTSIDE RECORDS SUMMARY | 2024-08-21 17:58 | XMS_ITS | Encounter Summary ---
Author Organization [employer] Address 75 [facility] 7t [place] [address] Care Team Providers Care Vessel Specialist Name Role Phone Pretty Molina MD Primary Care Provide r Reason for Visit * Reason Onset Date Comments Med Refill 06/10/2022 Encounter Details Date Type Department Care Team (Late st Contact Info) Description 06/10/2022 Refill [facility] MEDICINE 230 [place] [address] Pretty Molina MD 230 [place], [place] [phone] Social History Tobacco Use Types Packs/Day Years [...] Support [facility] MEDICINE 230 [place], [place] [phone] Sandra Boyd RN 10/10/2024 10:30 AM EDT Office Visit [facility] MEDICINE 230 [place], [place] [phone] Pretty Molina MD [address] [place] [phone] documented as of this encounter Visit Diagnoses Not on filedocumented in this encounter Care Teams Vessel Specialist Relationship Specialty Start Date End Date Pretty Molina MD [address] [place] [phone] PCP - General Family Medicine 12/24/20 documented as of this encounter
--- OUTSIDE RECORDS SUMMARY | 2024-08-21 17:58 | XMS_ITS | Encounter Summary ---
Author Organization [employer] Address 75 [facility] 7t [place] [address] Care Team Providers Care Labor Law Professor Name Role Phone Pretty Molina MD Primary Care Provide r Reason for Visit * Reason Comments Med Refill Encounter Details Date Type Department Care Team (Late st Contact Info) Description 05/09/2023 Refill [facility] MEDICINE 230 [place], [place] [phone] Pretty Molina MD 230 [place], [place] [phone] Other chronic pain Social History Tobacco Use [...] Description 10/04/2024 1:00 PM EDT Clinical Support [facility] MEDICINE [address] [place] [phone] Sandra Boyd RN 10/10/2024 10:30 AM EDT Office Visit [facility] MEDICINE [address] [place] [phone] Pretty Molina MD [address] [place] [phone] documented as of this encounter Visit Diagnoses Diagnosis Other chronic pain documented in this encounter Additional Health Concerns Assessment Noted Time PHQ-9 Depression Total Score: 12 023 3:08 PM EDT documented as of this encounter Care Teams Labor Law Professor Relationship Specialty Start Date End Date Pretty Molina MD [address] [place] [phone] PCP - General Family Medicine 12/24/20 documented as of this encounter
--- OUTSIDE RECORDS SUMMARY | 2024-08-21 17:58 | XMS_ITS | Encounter Summary ---
Author Organization [employer] Address 75 [facility] 7t [place] [address] Care Team Providers Care Hosiery Mender Name Role Phone Pretty Molina MD Primary Care Provide r Encounter Details Date Type Department Care Team (Late st Contact Info) Description 07/01/2022 Orders Only [facility] [address] [place] [address] Marti Cedillo RN Chronically on opiate therapy [...] Description 10/04/2024 1:00 PM EDT Clinical Support [address] [address] Sandra Boyd RN 10/10/2024 10:30 AM EDT Office Visit [address] [address] Pretty Molina MD [address] [place] [address] documented as of this encounter Visit Diagnoses Diagnosis Chronically on opiate therapy- Primary documented in this encounter Care Teams Hosiery Mender Relationship Specialty Start Date End Date Pretty Molina MD 230 [place] [address] PCP - General Family Medicine 12/24/20 documented as of this encounter
--- OUTSIDE RECORDS SUMMARY | 2024-08-21 17:58 | XMS_ITS | Encounter Summary ---
Author Organization [employer] Address 75 [facility] 7t [place] [address] Care Team Providers Care Assistant Professor Of Life Sciences Name Role Phone Pretty Molina MD Primary Care Provide r Reason for Visit * Reason Comments Med Refill Encounter Details Date Type Department Care Team (Late st Contact Info) Description 07/01/2024 Refill [facility] [address] [place] [address] Keysha Nagel, ERIC [address] [place] [address] Social History Tobacco Use Types Packs/Day Years [...] EDT Clinical Support [facility] [address] [place] [phone] Sandra Boyd RN 10/10/2024 10:30 AM EDT Office Visit [facility] [address] [place] [phone] Pretty Molina MD [address] [place] [phone] documented as of this encounter Visit Diagnoses Not on filedocumented in this encounter Additional Health Concerns Assessment Noted Time PHQ-9 Depression Total Score: 4 01/06/20 24 2:22 PM EDT documented as of this encounter Care Teams Assistant Professor Of Life Sciences Relationship Specialty Start Date End Date Pretty Molina MD [address] [place] [phone] PCP - General Family Medicine 12/24/20 documented as of this encounter
--- OUTSIDE RECORDS SUMMARY | 2024-08-21 17:58 | XMS_ITS | Encounter Summary ---
Author Organization [employer] Address 75 [facility] 7t [place] [address] Care Team Providers Care Knitted Garment Finisher Name Role Phone Pretty Molina MD Primary Care Provide r Reason for Visit * Reason Comments Med Refill Encounter Details Date Type Department Care Team ([facility] st Contact Info) Description 05/12/2023 Refill [facility] MED & PEDS [address] [place], [place] [phone] Pretty Molina MD 230 [place] [address] Neuropathy Social History Tobacco Use Types Packs/Day [...] Clinical Support [facility]INE [address] [place] [phone] Sandra Boyd RN 10/10/2024 10:30 AM EDT Office Visit [facility] [address] [place] [address] Pretty Molina MD [address] [place] [address] documented as of this encounter Visit Diagnoses Diagnosis Neuropathy Mononeuritis of unspecified site documented in this encounter Additional Health Concerns Assessment Noted Time PHQ-9 Depression Total Score: 12 023 3:08 PM EDT documented as of this encounter Care Teams Knitted Garment Finisher Relationship Specialty Start Date End Date Pretty Molina MD [address] [place] [phone] PCP - General Family Medicine 12/24/20 documented as of this encounter
--- OUTSIDE RECORDS SUMMARY | 2024-08-21 17:58 | XMS_ITS | Encounter Summary ---
Author Organization [employer] Address 75 [facility] 7t [place] [address] Care Team Providers Care World Travel Counselor Name Role Phone Pretty Molina MD Primary Care Provide r Reason for Visit * Reason Comments Med Refill Encounter Details Date Type Department Care Team (Late st Contact Info) Description 07/30/2024 Refill [facility] 230 [place], [place] [phone] Pretty Molina MD 230 [place] [address] Type 2 diabetes mellitus with hyperglycemia, without long-term current use of insulin ([facility]) Social History Tobacco Use Types Packs/Day Years [...] EDT Clinical Support [facility] [address] [place] [phone] Sandra Boyd RN 10/10/2024 10:30 AM EDT Office Visit [address] [address] Pretty Molina MD [address] [place] [address] documented as of this encounter Visit Diagnoses Diagnosis Type 2 diabetes mellitus with hyperglycemia, without long-term current use of insulin ([facility]) documented in this encounter Additional Health Concerns Assessment Noted Time PHQ-9 Depression Total Score: 4 01/06/20 24 2:22 PM EDT documented as of this encounter Care Teams World Travel Counselor Relationship Specialty Start Date End Date Pretty Molina MD [address] [place] [phone] PCP - General Family Medicine 12/24/20 documented as of this encounter
--- OUTSIDE RECORDS SUMMARY | 2024-08-21 17:58 | XMS_ITS | Encounter Summary ---
Author Organization [employer] Address 75 [facility] 7t [place] [address] Care Team Providers Care Supervisor Front Name Role Phone Pretty Molina MD Primary Care Provide r Encounter Details Date Type Department Care Team (Late st Contact Info) Description 07/12/2022 Orders Only [facility] CH[facility] MED & PEDS [address] [place] [address] Jocelyn Fleming LPN Social History Tobacco Use [...] Description 10/04/2024 1:00 PM EDT Clinical Support [facility] [address] [place] [phone] Sandra Boyd RN 10/10/2024 10:30 AM EDT Office Visit [facility] [address] [place] [address] Pretty Molina MD 230 [place] [address] documented as of this encounter Visit Diagnoses Not on filedocumented in this encounter Care Teams Supervisor Front Relationship Specialty Start Date End Date Pretty Molina MD [address] [place] [phone] PCP - General Family Medicine 12/24/20 documented as of this encounter
--- OUTSIDE RECORDS SUMMARY | 2024-08-21 17:58 | XMS_ITS | Encounter Summary ---
Author Organization [employer] Address 75 [facility] 7t [place] [address] Care Team Providers Care Regional Airline Pilot Name Role Phone Pretty Molina MD Primary Care Provide r Reason for Visit * Reason Comments Med Refill Encounter Details Date Type Department Care Team (Late st Contact Info) Description 06/11/2022 Refill [facility] [address] [place] [phone] Yasmine Hernandez MD 230 [place], [place] [phone] Chronic pain syndrome Social History Tobacco Use [...] Cedillo RN - 06/15/2022 10:45 AM EST Nuclear Operations Specialist ck 06/15/22. documented in this encounter Plan of Treatment Upcoming Encounters Date Type Department Care Team (Late st Contact Info) Description 10/04/2024 1:00 PM EDT Clinical Support [facility] [address] [place] [phone] Sandra Boyd RN 10/10/2024 10:30 AM EDT Office Visit [facility] 230 [place] [address] Pretty Molina MD [address] [place] [address] documented as of this encounter Visit Diagnoses Diagnosis Chronic pain syndrome documented in this encounter Care Teams Regional Airline Pilot Relationship Specialty Start Date End Date Pretty Molina MD [address] [place] [address] PCP - General Family Medicine 12/24/20 documented as of this encounter
--- OUTSIDE RECORDS SUMMARY | 2024-08-21 17:59 | XMS_ITS | Encounter Summary ---
Author Organization [employer] Address 75 [facility] 7t [place] [address] Care Team Providers Care Workers' Compensation Hearings Officer Name Role Phone Pretty Molina MD Primary Care Provide r Reason for Visit * Reason Onset Date Comments Med Refill 01/05/2023 Encounter Details Date Type Department Care Team (Late st Contact Info) Description 01/05/2023 Telephone [facility]INE [address] [place] [address] Pretty Molina MD 230 [place] [phone] Med Refill Social History Tobacco Use Types [...] Description 10/04/2024 1:00 PM EDT Clinical Support [address] [address] Sandra Boyd, RN 10/10/2024 10:30 AM EDT Office Visit [facility]INE [address] [place] [address] Pretty Molina MD [address] [place] [address] documented as of this encounter Visit Diagnoses Not on filedocumented in this encounter Additional Health Concerns Assessment Noted Time PHQ-9 Depression Total Score: 12 11/24/ 023 3:08 PM EDT documented as of this encounter Care Teams Workers' Compensation Hearings Officer Relationship Specialty Start Date End Date Pretty Molina MD [address] [place] [phone] PCP - General Family Medicine 12/24/20 documented as of this encounter
--- OUTSIDE RECORDS SUMMARY | 2024-08-21 17:59 | XMS_ITS | Encounter Summary ---
Author Organization [employer] Address 75 [facility] 7t [place] [address] Care Team Providers Care Hub Bander Name Role Phone Pretty Molina MD Primary Care Provide r Reason for Visit * Reason Comments Med Refill Encounter Details Date Type Department Care Team (Late st Contact Info) Description 04/21/2024 Refill [facility] 230 [place], [place] [phone] Pretty Molina MD 230 [place] [address] Neuropathy Social History Tobacco Use Types Packs/Day [...] PM EDT Clinical Support [facility] [address] [place] [phone] Sandra Boyd RN 10/10/2024 10:30 AM EDT Office Visit [facility] [address] [place] [phone] Pretty Molina MD [address] [place] [phone] documented as of this encounter Visit Diagnoses Diagnosis Neuropathy Mononeuritis of unspecified site documented in this encounter Additional Health Concerns Assessment Noted Time PHQ-9 Depression Total Score: 4 01/06/20 24 2:22 PM EDT documented as of this encounter Care Teams Hub Bander Relationship Specialty Start Date End Date Pretty Molina MD [address] [place] [phone] PCP - General Family Medicine 12/24/20 documented as of this encounter
--- OUTSIDE RECORDS SUMMARY | 2024-08-21 17:59 | XMS_ITS | Encounter Summary ---
Author Organization [email or web address] Address 75 [facility] 7t [place] [address] Care Team Providers Care Line Therapist Name Role Phone Pretty Molina MD Primary Care Provide r Encounter Details Date Type Department Care Team (Late st Contact Info) Description 11/12/2022 Orders Only [facility] CHC MED & PEDS 505 [place], [place] [phone] Jocelyn Fleming LPN Social History Tobacco Use [...] 10/04/2024 1:00 PM EDT Clinical Support [facility] MEDICINE [address] [place] [phone] Sandra Boyd RN 10/10/2024 10:30 AM EDT Office Visit [facility] [address] [place] [address] [phone] Pretty Molina MD 230 [place], [place] [phone] documented as of this encounter Visit Diagnoses Not on filedocumented in this encounter Care Teams Line Therapist Relationship Specialty Start Date End Date Pretty Molina MD 230 [place] [address] PCP - General Family Medicine 12/24/20 documented as of this encounter
--- OUTSIDE RECORDS SUMMARY | 2024-08-21 17:59 | XMS_ITS | Encounter Summary ---
Author Organization [employer] Address 75 [facility] 7t [place] [address] Care Team Providers Care Steward/Stewardess Lounge Name Role Phone Pretty Molina MD Primary Care Provide r Reason for Visit * Reason Comments Care Coordination SDOH Encounter Details Date Type Department Care Team (Latest Contact Info) Description 08/16/2024 Patient Outreach [facility]INE 230 [place] [address] Pretty Molina MD 230 [place] [address] Care Coordination (SDOH) Social History Tobacco Use [...] encounter Progress Notes * Mercedez Montano - 08/16/2024 11:15 AM EST CHW Mercedez Montano placed outbound call to patient for follow up call on SDOH needs. No answer at this time. LVM introducing herself from [facility] CM Department. Requested call back. CHWreinforced direct contact information or CM for any additional questions or concernsand extended clinic hours on Mondays and Wednesdays, and Walk-In Urgent Care Located in [facility] of [facility]. Patient provided with after-hours line for [facility], , which offer nighttime triage service and option to transfer to funeral service practitioner/embalmer provider if needed. CHW will attempt another follow up call within 10 days. documented in this encounter Plan of Treatment Upcoming Encounters Date Type Department Care Team (Late st Contact Info) Description 10/04/2024 1:00 PM EDT Clinical Support [facility] MEDICINE [address] [place] [phone] Sandra Boyd RN 10/10/2024 10:30 AM EDT Office Visit [facility] [address] [place] [address] Pretty Molina MD [address] [place] [address] [phone] documented as of this encounter Visit Diagnoses Not on filedocumented in this encounter Additional Health Concerns Assessment Noted Time PHQ-9 Depression Total Score: 4 01/06/20 24 2:22 PM EDT documented as of this encounter Care Teams Steward/Stewardess Lounge Relationship Specialty Start Date End Date Pretty Molina MD 230 [place] [address] PCP - General Family Medicine 12/24/20 documented as of this encounter
--- OUTSIDE RECORDS SUMMARY | 2024-08-21 17:59 | XMS_ITS | Encounter Summary ---
Author Organization [employer] Address 75 [facility] 7t [place] [address] Care Team Providers Care Umbrella Mender Name Role Phone Pretty Molina MD Primary Care Provide r Encounter Details Date Type Department Care Team (Late st Contact Info) Description 08/16/2024 Orders Only GENERIC EXTERNAL DATA DEPARTMENT [...] [facility]INE [address] [place] [address] Sandra Boyd RN 10/10/2024 10:30 AM EDT Office Visit [facility] [address] [place] [phone] Pretty Molina MD [address] [place] [address] documented as of this encounter Procedures Procedure Name Priority Date/Time Associated Diagnosis Comments HEMATOXYLIN AND EOSIN STAIN Routine 08/16/2024 11:21 AM EST GLUCOSE, WHOLE BLOOD Routine 08/16/2024 10:29 AM EST LIPID PANEL, STANDARD Routine 08/16/2024 9:01 AM EST documented in this encounter Results * Hematoxylin and Eosin Stain (08/16/2024 11:21 AM EST) 08/16/2024 11:2 1 AM EST 08/16/2024 1:11 PM EST [facility]S - 08/17/2024 4:59 PM EST ----- ------- Name: Violet Pascal ? Age/Sex: 64/F ? : 1960 Unit#: [id number] ?? Attend Dr: Ramesh Gurrola MD ?Re08/16/24 ?Status: DEP SDC ? Location: HO.SSS ?Disch: ? ----- ------- SPEC : [id number] ? RECD: 08/16/24 ? STATUS: ??SOUT ? REQ NUM: [id number] ? YASMINE: 08/16/24 ? SUBM DR: Ramesh [...] microscopic examination, multiple pieces in cassette A. ??([facility]) Copies To: ?? Pretty Molina MD ?? [facility] ?? [address] [facility] ?? [place] [address] ?? [phone] ?? Ramesh Gurrola MD ?? [facility] ?? [address] [facility] [address] ?? [place] [address] ?? [phone] ? CONTINUED ON NEXT PAGE ----- ------- Name: Violet Pascal ? Age/Sex: 64/F ? : 1960 Unit#: [id number] ?? Attend Dr: Ramesh Gurrola MD ?Re08/16/24 ?Status: DEP SDC ? Location: HO.SSS ?Disch: ? ----- ------- SPEC : [id number] ? RECD: 08/16/24 ? STATUS: ??SOUT ? REQ NUM: [id number] ? YASMINE: 08/16/24-1120 ? SUBM DR: Ramesh Gurrola MD ? ENTERED: ??08/16/24 ?SP TYPE: Surgical ? OTHR : Pretty Molina MD ? ORDERED: ??HE Stain/2, Gross Micro L4 ? ----- ------- Signed (signature on file) Wally Harding MD 08/17/24 1659 ? ----- ------- ? END OF REPORT ? Generic External Data Provider LAB BLOOD ORDERAB LES Final Result Performing Organization Address [facility] Phone Number [facility] [address] [place] [address] [phone] * (ABNORMAL) Glucose, Whole Blood (08/16/2024 10:29 AM EST) Glucose, Whole Blood 150(H) 60 - 115 mg/dL [facility] Comment:METER #: [id number] 08/16/2024 10:2 9 AM EST 08/16/2024 10:33 AM EST Generic External Data Provider LAB BLOOD ORDERAB LES Final Result Performing Organization Address [facility] Phone Number [facility] [address] [place] [address] [phone] * Lipid Panel, Standard (08/16/2024 9:01 AM EST) Triglycerides 106 <150 mg/dL [facility] Comment:Desirable Triglyceri de: less than 150 mg/dLBorderline High Triglyceride 150-199 mg/dLHigh Triglyceride: 200-499 mg/dLVery High Triglyceride: greater than or equal to 5OO mg/dL Cholesterol 148 <200 mg/dL [facility] Comment:Desirable Cholestero l: less than 200 mg/dLBorderline High Cholesterol: 200-239 mg/dLHigh Cholesterol: greater than 239 mg/dL LDL Cholesterol Calculated 81 <100 mg/dL [facility] Comment:Desirable LDL: less than 100 mg/dLNear Optimal/Above Optimal LDL: 110- 129 mg/dLBorderline High LDL: 130-159 mg/dLHigh LDL: 160-189 mg/dLVery High LDL: greater than or equal to 190 mg/dL HDL Cholesterol 46 >40 mg/dL [facility] Comment:Desirable HDL: great er than 40 mg/dL Note: This HDL assay may give artificially low results in patients with liver disease. 08/16/2024 9:01 AM EST 08/16/2024 9:01 AM EST us Generic External Data Provider LAB BLOOD ORDERAB LES Final Result Performing Organization Address City/State/[facility] Co de Phone Number [facility] [address] [place] [address] [phone] documented in this encounter Visit Diagnoses Not on filedocumented in this encounter Additional Health Concerns Assessment Noted Time PHQ-9 Depression Total Score: 4 01/06/20 24 2:22 PM EDT documented as of this encounter Care Teams Umbrella Mender Relationship Specialty Start Date End Date Pretty Molina MD [address] [place] [address] PCP - General Family Medicine 12/24/20 documented as of this encounter
--- OUTSIDE RECORDS SUMMARY | 2024-08-21 17:59 | XMS_ITS | Encounter Summary ---
Author Organization [employer] Address 75 [facility] 7t [place] [address] Care Team Providers Care Supervisor Tumblers Name Role Phone Pretty Molina MD Primary Care Provide r Reason for Visit * Reason Comments Med Refill Encounter Details Date Type Department Care Team (Late st Contact Info) Description 08/17/2024 Refill [facility] [address] [place] [address] Pretty Molina MD 230 [place] [address] Social History Tobacco Use Types Packs/Day Years [...] PM EDT Clinical Support [facility] MEDICINE [address] [place] [address] Sandra Boyd RN 10/10/2024 10:30 AM EDT Office Visit [facility] [address] [place] [address] Pretty Molina MD [address] [place] [address] documented as of this encounter Visit Diagnoses Not on filedocumented in this encounter Additional Health Concerns Assessment Noted Time PHQ-9 Depression Total Score: 4 01/06/20 24 2:22 PM EDT documented as of this encounter Care Teams Supervisor Tumblers Relationship Specialty Start Date End Date Pretty Molina MD [address] [place] [address] PCP - General Family Medicine 12/24/20 documented as of this encounter
--- OUTSIDE RECORDS SUMMARY | 2024-08-21 17:59 | XMS_ITS | Encounter Summary ---
Author Organization [employer] Address 75 [facility] 7t [place] [address] Care Team Providers Care Diversified Crops Farmer Name Role Phone Pretty Molina MD Primary Care Provide r Reason for Visit * Reason Comments Med Refill Encounter Details Date Type Department Care Team (Late st Contact Info) Description 04/05/2024 Refill [facility] MEDICINE [address] [place], [place] [phone] Pretty Molina MD [address] [place] [address] Other chronic pain Social History Tobacco Use [...] Clinical Support [facility] MEDICINE [address] [place] [phone] Sandra Boyd RN 10/10/2024 10:30 AM EDT Office Visit [facility] MED[facility]INE [address] [place] [phone] Pretty Molina MD [address] [place] [address] documented as of this encounter Visit Diagnoses Diagnosis Other chronic pain documented in this encounter Additional Health Concerns Assessment Noted Time PHQ-9 Depression Total Score: 4 01/06/20 24 2:22 PM EDT documented as of this encounter Care Teams Diversified Crops Farmer Relationship Specialty Start Date End Date Pretty Molina MD [address] [place] [address] PCP - General Family Medicine 12/24/20 documented as of this encounter
--- OUTSIDE RECORDS SUMMARY | 2024-08-21 17:59 | XMS_ITS | Encounter Summary ---
Author Organization [employer] Address 75 [facility] 7t [place] [address] Care Team Providers Care Business Segment Manager Name Role Phone Pretty Molina MD Primary Care Provide r Reason for Visit * Reason Comments Med Refill Encounter Details Date Type Department Care Team (Late st Contact Info) Description 08/19/2024 Refill [facility] MEDICINE 230 [place], [place] [phone] Pretty Molina MD [address] [place], [place] [phone] Neuropathy Social History Tobacco Use Types Packs/Day [...] Description 10/04/2024 1:00 PM EDT Clinical Support [facility] MEDICINE [address] [place] [phone] Sandra Boyd RN 10/10/2024 10:30 AM EDT Office Visit [facility]INE [address] [place] [phone] Pretty Molina MD [address] [place] [phone] documented as of this encounter Visit Diagnoses Diagnosis Neuropathy Mononeuritis of unspecified site documented in this encounter Additional Health Concerns Assessment Noted Time PHQ-9 Depression Total Score: 4 01/06/20 24 2:22 PM EDT documented as of this encounter Care Teams Business Segment Manager Relationship Specialty Start Date End Date Pretty Molina MD [address] [place] [phone] PCP - General Family Medicine 12/24/20 documented as of this encounter
--- OUTSIDE RECORDS SUMMARY | 2024-08-21 17:59 | XMS_ITS | Encounter Summary ---
Author Organization [employer] Address 75 [facility] 7t [place] [address] Care Team Providers Care Operations Trainer Name Role Phone Pretty Molina MD Primary Care Provide r Reason for Visit * Reason Comments Med Refill Encounter Details Date Type Department Care Team (Late st Contact Info) Description 12/06/[address] [facility] [address] [place], [place] [phone] Pretty Molina MD 230 [place], [place] [phone] Other chronic pain Social History Tobacco Use [...] 10/04/2024 1:00 PM EDT Clinical Support [facility] [address] [place] [address] Sandra Boyd RN 10/10/2024 10:30 AM EDT Office Visit [facility] [address] [place] [address] Pretty Molina MD [address] [place] [address] documented as of this encounter Visit Diagnoses Diagnosis Other chronic pain documented in this encounter Additional Health Concerns Assessment Noted Time PHQ-9 Depression Total Score: 12 023 3:08 PM EDT documented as of this encounter Care Teams Operations Trainer Relationship Specialty Start Date End Date Pretty Molina MD [address] [place] [address] PCP - General Family Medicine 12/24/20 documented as of this encounter
--- OUTSIDE RECORDS SUMMARY | 2024-08-21 17:59 | XMS_ITS | Encounter Summary ---
Author Organization [employer] Address 75 [facility] 7t [place] [address] Care Team Providers Care Technology Advisor Name Role Phone Pretty Molina MD Primary Care Provide r Reason for Visit * Reason Comments Med Refill Encounter Details Date Type Department Care Team (Late st Contact Info) Description 04/15/2024 Refill [facility] [address] [place] [address] Pretty Molina MD 230 [place] [address] Social History Tobacco Use Types Packs/Day Years [...] EDT Clinical Support [facility] [address] [place] [address] Sandra Boyd RN 10/10/2024 10:30 AM EDT Office Visit [facility] [address] [place] [phone] Pretty Molina MD [address] [place] [address] documented as of this encounter Visit Diagnoses Not on filedocumented in this encounter Additional Health Concerns Assessment Noted Time PHQ-9 Depression Total Score: 4 01/06/20 24 2:22 PM EDT documented as of this encounter Care Teams Technology Advisor Relationship Specialty Start Date End Date Pretty Molina MD [address] [place] [address] PCP - General Family Medicine 12/24/20 documented as of this encounter
--- OUTSIDE RECORDS SUMMARY | 2024-08-21 17:59 | XMS_ITS | Encounter Summary ---
Author Organization [employer] Address 75 [facility] 7t [place] [address] Care Team Providers Care Yield Loss Inspector Name Role Phone Pretty Molina MD Primary Care Provide r Reason for Visit * Reason Comments Med Refill Encounter Details Date Type Department Care Team (Late Contact Info) Description 12/27/2022 Refill [facility] 230 [place] [address] Jocelyn Bender DO 230 [place] [address] Seasonal allergic rhinitis, unspecified trigger Social History [...] 1:00 PM EDT Clinical Support [facility] [address] [place] [address] Sandra Boyd, TONY 10/10/2024 10:30 AM EDT Office Visit [facility] [address] [place] [phone] Pretty Molina MD [address] [place] [address] documented as of this encounter Visit Diagnoses Diagnosis Seasonal allergic rhinitis, unspecified trigger documented in this encounter Additional Health Concerns Assessment Noted Time PHQ-9 Depression Total Score: 12 023 3:08 PM EDT documented as of this encounter Care Teams Yield Loss Inspector Relationship Specialty Start Date End Date Pretty Molina MD [address] [place] [address] PCP - General Family Medicine 12/24/20 documented as of this encounter
--- OUTSIDE RECORDS SUMMARY | 2024-08-21 17:59 | XMS_ITS | Encounter Summary ---
Author Organization [employer] Address 75 [facility] 7t [place] [address] Care Team Providers Care Instrumentation Chemist Name Role Phone Pretty Molina MD Primary Care Provide r Reason for Visit * Reason Onset Date Comments Nurse Triage 04/26/2024 Encounter Details Date Type Department Care Team ([facility] st Contact Info) Description 04/26/2024 Telephone [facility] 230 [place] [address] Pretty Molina MD 230 [place] [address] Nurse Triage Social History Tobacco Use Types [...] 12:18 PM EST Please obtain note from [facility] ED visit 04/24/24, Upcoming appt with PCP tomorrow at 11am. * Telephone Encounter - Valeria Hooper LPN - 04/26/2024 11:58 AM EST Triage call returned with BLS #[id number] Yonathan. Patient reports that she was seen on 04/19/24. Patient is reporting following her Flu shot she has been feeling delicate . Chart shows Flu given in March. Call dropped. Return call with Social Service Director Neto [phone]. Patient reports seen at [facility] and not improved with cough and congestion. Has no reported fever. Patient then reports presented to [facility] ED on 04/24/24 and was given scan [...] caller accepted this outcome. Contact pt at [phone] documented in this encounter Plan of Treatment Upcoming Encounters Date Type Department Care Team (Late st Contact Info) Description 10/04/2024 1:00 PM EDT Clinical Support [address] [address] Sandra Boyd RN 10/10/2024 10:30 AM EDT Office Visit [facility] [address] [place] [address] Pretty Molina MD [address] [place] [address] documented as of this encounter Visit Diagnoses Not on filedocumented in this encounter Additional Health Concerns Assessment Noted Time PHQ-9 Depression Total Score: 4 01/06/20 24 2:22 PM EDT documented as of this encounter Care Teams Instrumentation Chemist Relationship Specialty Start Date End Date Pretty Molina MD [address] [place] [address] PCP - General Family Medicine 12/24/20 documented as of this encounter
--- OUTSIDE RECORDS SUMMARY | 2024-08-21 17:59 | XMS_ITS | Encounter Summary ---
Author Organization [employer] Address 75 [facility] 7t [place] [address] Care Team Providers Care Stem Mounter Name Role Phone Pretty Molina MD Primary Care Provide r Reason for Visit * Reason Comments Med Refill Encounter Details Date Type Department Care Team (Late st Contact Info) Description 11/24/2022 Refill [facility] 230 [place] [address] Eliezer Richardson DDS 230 [place] [address] Social History Tobacco Use Types Packs/Day Years [...] Description 10/04/2024 1:00 PM EDT Clinical Support [address] [address] Sandra Boyd RN 10/10/2024 10:30 AM EDT Office Visit [address] [address] Pretty Molina MD [address] [place] [address] documented as of this encounter Visit Diagnoses Not on filedocumented in this encounter Additional Health Concerns Assessment Noted Time PHQ-9 Depression Total Score: 12 023 3:08 PM EDT documented as of this encounter Care Teams Stem Mounter Relationship Specialty Start Date End Date Pretty Molina MD [address] [place] [address] PCP - General Family Medicine 12/24/20 documented as of this encounter
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
== END ==
LOC: HO.CARD 14:40
PROVIDERS: PCP Internal Medicine
DX: I10 Essential (primary) hypertension (principal)
CPT/HCPCS: 93306

== ENCOUNTER → 2024-08-21 14:43 | Outpatient (BNV) | payer MEDICAID, SELFPAY | PROVIDERS: PCP Internal Medicine; Visit Provider Internal Medicine | DX: I42.2 Other hypertrophic cardiomyopathy (principal); I35.8 Other nonrheumatic aortic valve disorders | CPT/HCPCS: 93306 ==

== ENCOUNTER 2024-08-29 09:10 | Outpatient (AMB) | payer MEDICAID, SELFPAY ==
--- NOTE | 2024-08-29 09:19 | A.OFFVIS_ITS ---
Vital Signs 08/29/24 09:20 Height 5 ft 2 in Weight 211 lb BMI 38.6 Intake Visit Reasons: post op Oxyacetylene Burner Required: Yes Oxyacetylene Burner Language: Filler Shredder Machine Services: Oxyacetylene Burner Present (in person) Oxyacetylene Burner Name: Kandice HUMPHREY Information Interpreted: non-clinical & clinical Accompanied by: Daughter Allergies morphine [MORPHINE] Allergy (Unknown, Verified 08/29/24 09:21) UNKNOWN Post menopausal: Yes HPI Comments Details: The patient is presenting post hysteroscopy D&C no complaints minimal vaginal bleeding no feverishness chills or abdominal pain. The pathology showed the following: Endometrium, curettage: Scant superficial strips of benign endometrium; mucoinflammatory material and blood. Comment: The endometrium is sparse; recommend repeat sampling, as clinically appropriate The patient was seen after ultrasound done on 04/10/2024 which showed the following: Uterus: The uterus is anteverted and measures 7.4 x 2.9 x 3.7 cm. The double wall endometrial thickness is 6 mm. The uterus is smooth in contour and has normal myometrial echogenicity. There is a 1.0 x 1.4 x 1.3 cm fibroid at the fundus on the left. Nabothian cysts are present in the cervix, some complex Adnexa: The right ovary measures 2.4 x 0.8 x 1.7 cm for a volume 1.8 cc and contains a few punctate calcifications. Left ovary was not seen. The patient has no history of vaginal bleeding, EMB was done on 07/19/2024 because of thickened endometrium, the pathology showed the following: Endometrium, biopsy: - Few strips of benign endometrium. - Few strips and fragments of benign endocervical and squamous epithelium; mucoinflammatory material. - No atypia identified. Comment: The endometrial sampling is sparse; consider repeat, as clinically appropriate Repeat ultrasound to monitor the site of the myoma was done in 08/07 which showed the following: Findings: Transvaginal scanning performed. Anteverted uterus is 7.1 cm length. Normal myometrium. No endometrial lesion, 2.0 mm thickness. Is a fundal myometrial 1.2 x 1.2 x 0 9 cm leiomyoma. Right ovary 2.4 x 1.7 x 0.8 cm. Left ovary not visualized.: [facility] Medical History Asymmetric septal hypertrophy Heart block atrioventricular Chronic pain Depression Vascular insufficiency [place]hen Hip pain Foot pain Foot callus Cubital tunnel syndrome Chronic vulvovaginitis Carpal tunnel syndrome Burn scar contracture of upper arm Blurring of visual image Mood disorder Hyperlipidemia Renal cyst Hematuria of unknown cause Smoker Arthritis Back pain Diabetes GERD (gastroesophageal reflux disease) Fibromyalgia Anxiety and depression MARK on CPAP Chronic sinusitis Asthma Elevated cholesterol HTN (hypertension) Surgical History Hx of cystoscopy S/P lumpectomy of breast (04/20/21) Hx of colonoscopy Hx of dilation and curettage H/O tubal ligation History of skin graft Family History Father No problems noted. Mother No problems noted. 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 Female Reproductive History Menstrual Age of Menarche: 14 Review of Systems Const All systems reviewed & are unremarkable except as noted in HPI and below Reports as per HPI and Reports no additional complaints GI Reports no additional complaints Reports no additional complaints Physical Exam Vital Signs: BMI result Body Mass Index 38.6 Assessment & Plan Assessment & Plan (1) Thickened endometrium: Comment: 6 mm on 04/05 US 2 mm in 08/07 Code(s): R93.89 - Abnormal findings on diagnostic imaging of other specified body structures Category: Medical Plan: Discussed with the patient the finding on the ultrasound in 08/07 showing a normal endometrial thickness 2 mm compared to previous endometrial thickness 6 mm in 04/05. Also discussed with the patient the results the pathology and the fact that both had scant tissues. Explained to the patient that endometrial pathology including endometrial hyperplasia and/or malignancy has not been ruled out with a high accuracy, recommended referral to [facility] for further management to rule out endo metrial pathology. The patient understands the fact that endometrial pathology has not been ruled out with a high accuracy, declined the referral. Instructions given the patient to call in case of vaginal bleeding and will proceed with further endometrial sampling to rule out endometrial pathology. All questions answered, the patient verbalized understanding (2) Uterine myoma: Code(s): D25.9 - Leiomyoma of uterus, unspecified Category: Medical Plan: Discussed with the patient the findings on pelvic ultrasound & the risk of myosarcoma; in addition reviewed with the patient that malignancy and pre malignancy cannot be ruled out without hysterectomy for pathological evaluation ; furthermore, explained to the patient the limitation of pelvic ultrasound and endometrial biopsy in the setting. Discussed with the patient the options of treatment including expectant management versus hysterectomy; the pros and cons, risks benefits of each approach were discussed with the patient including the fact that in cases of myosarcoma, surgical treatment can lead to early diagnosis and positively affects the prognosis; after further discussion, the patient decided to proceed with expectant management. Will repeat pelvic ultrasound periodically. Instructions given to patient to call in case any of the following occurs: pressure symptoms, abnormal uterine bleeding, pelvic pain; and to schedule a six-months pelvic ultrasound (order placed) and a follow-up appointment . All questions answered, the patient verbalized understanding and agreed with the plan . Orders: Orders US pelvic and transvaginal 6 Months D25.9 - Leiomyoma of uterus, unspecified Coding Level of Care Code Est Pt Level 3 (93509) Diagnoses Thickened endometrium R93.89 Uterine myoma D25.9
[2024-08-29 09:20] VITALS: BMI 38.6
--- OUTSIDE RECORDS SUMMARY | 2024-08-29 09:59 | XMS_ITS | Encounter Summary ---
Author Organization [employer] Address 75 [facility] 7t [place] [address] Care Team Providers Care Freezer Person Name Role Phone Pretty Molina MD Primary Care Provide r Reason for Visit * Reason Comments Care Coordination SDOH Encounter Details Date Type Department Care Team (Latest Contact Info) Description 08/02/2024 Patient Outreach [facility] 230 [place] [address] Pretty Molina MD 230 [place] [address] Care Coordination (SDOH) Social History Tobacco Use [...] this time. CHW LVM introducing herself from [facility] CM Department with CHW's name, department and direct contact number requesting call back. Will re-attempt to contact within 5 days. and address not confirmed. documented in this encounter Plan of Treatment Upcoming Encounters Date Type Department Care Team ([facility] st Contact Info) Description 09/11/2024 2:00 PM EDT Medication Management [address] [address] Guero Burns, PharmD [address] [place] [address] 10/04/2024 1:00 PM EDT Clinical Support [address] [address] Sandra Boyd RN 10/10/2024 10:30 AM EDT Office Visit [address] [address] Pretty Molina MD 230 [place] [address] documented as of this encounter Visit Diagnoses Not on filedocumented in this encounter Additional Health Concerns Assessment Noted Time PHQ-9 Depression Total Score: 4 01/06/20 24 2:22 PM EDT documented as of this encounter Care Teams Freezer Person Relationship Specialty Start Date End Date Pretty Molina MD [address] [place] [address] PCP - General Family Medicine 12/24/20 documented as of this encounter
--- OUTSIDE RECORDS SUMMARY | 2024-08-29 09:59 | XMS_ITS | Encounter Summary ---
Author Organization [employer] Address 75 [facility] 7t [place] [address] Care Team Providers Care Block Sealer Name Role Phone Pretty Molina MD Primary Care Provide r Reason for Visit * Reason Comments Care Coordination SDOH f/u Encounter Details Date Type Department Care Team (Latest Contact Info) Description 08/09/2024 Patient Outreach [facility] [address] [place] [address] Pretty Molina MD [address] [place] [address] Care Coordination (SDOH f/u) Social History Tobacco [...] stated she has not received a call from[facility] yet but will be on the lookout. CHW let patient know that if they don't call by next week then i will call them to do a status check. Patient agreed. No further questions or concerns. CHW reinforced direct contact information or CM for any additional questions or concerns and extended clinic hours on Mondays and Wednesdays, and Walk-In Urgent Care Located in [facility] of [facility]. Patient provided with after-hours line for [facility], , which offer nighttime triage service and option to transfer to scout professional sports provider ifneeded. Patient verbalizes understanding, and able to repeat back to policy writer. A follow up call will be placed within 10 days, patient agrees with plan. documented in this encounter Plan of Treatment Upcoming Encounters Date Type Department Care Team ([facility] st Contact Info) Description 09/11/2024 2:00 PM EDT Medication Management [facility] [address] [place] [phone] Guero Burns, PharmD [address] [place] [address] 10/04/2024 1:00 PM EDT Clinical Support [address] [address] Sandra Boyd, RN 10/10/2024 10:30 AM EDT Office Visit [address] [address] Pretty Molina MD [address] [place] [address] documented as of this encounter Visit Diagnoses Not on filedocumented in this encounter Additional Health Concerns Assessment Noted Time PHQ-9 Depression Total Score: 4 01/06/20 24 2:22 PM EDT documented as of this encounter Care Teams Block Sealer Relationship Specialty Start Date End Date Pretty Molina MD [address] [place] [address] PCP - General Family Medicine 12/24/20 documented as of this encounter
--- OUTSIDE RECORDS SUMMARY | 2024-08-29 09:59 | XMS_ITS | Encounter Summary ---
Author Organization [employer] Address 75 [facility] 7t [place] [address] Care Team Providers Care Forensic Social Worker Name Role Phone Pretty Molina MD Primary Care Provide r Reason for Visit * Reason Comments Med Refill Encounter Details Date Type Department Care Team ([facility] st Contact Info) Description 05/12/[address] [facility] [address] [place], [place] [phone] Pretty Molina MD 230 [place] [address] Neuropathy Social History Tobacco Use Types Packs/Day [...] Care Team (Late st Contact Info) Description 09/11/2024 2:00 PM EDT Medication Management [facility] [address] [place] [phone] Guero Burns, PharmD [address] [place] [address] 10/04/2024 1:00 PM EDT Clinical Support [address] [address] Sandra Boyd, TONY 10/10/2024 10:30 AM EDT Office Visit [address] [address] Pretty Molina MD [address] [place] [address] documented as of this encounter Visit Diagnoses Diagnosis Neuropathy Mononeuritis of unspecified site documented in this encounter Additional Health Concerns Assessment Noted Time PHQ-9 Depression Total Score: 12 023 3:08 PM EDT documented as of this encounter Care Teams Forensic Social Worker Relationship Specialty Start Date End Date Pretty Molina MD [address] [place] [address] PCP - General Family Medicine 12/24/20 documented as of this encounter
--- OUTSIDE RECORDS SUMMARY | 2024-08-29 09:59 | XMS_ITS | Clinical Summary ---
Author Organization [employer] Address [address] [place] [address] 7t [place] [address] Care Team Providers Care Hide Washer Name Role Phone Pretty Molina MD Primary [...] long-term current use of insulin (CMS/[facility]) 1 kit 2 times daily. To monitor [...] hyperglycemia, without long-term current use of insulin ([facility]) Inject 1 each into the shoulder, thigh, [...] tabletIndication s:Diabetes mellitus type 2 in nonobese ([facility]) TAKE 1 TABLET BY MOUTH EVERY MORNING [...] mellitus with other specified complication, unspecified whether long term care pharmacist insulin use (CMS/HCC) TAKE 1 TABLET BY [...] hyperglycemia, without long-term current use of insulin ([facility]) INJECT ONE PEN (=1.5MG) SUBCUTANEOUSLY ONCE A [...] AND BEDTIME 180 capsule 1 025 Active NIFEdipine XL (Procardia XL) 60 MG [...] hyperglycemia, without long-term current use of insulin ([facility]) Inject 0.5 mL (1.5 mg) under the [...] Encounters Date Type Department Care Team Description 08/24/2024 Population Health Risk Score Community [facility] () Department [address] [phone] Provider, Population Health Generic 08/19/2024 Refill [facility] MEDICINE [address] [place] [address] Pretty Molina MD Neuropathy 08/17/2024 Refill [facility] MED & PEDS [address] [place] [address] Pretty Molina MD 08/16/2024 Patient Outreach [facility] MEDICINE [address] [place], [place] [phone] Pretty Molina MD Care Coordination (SDOH) 08/16/2024 Orders Only GENERIC EXTERNAL DATA DEPARTMENT Provider, Generic External Data 08/15/2024 Refill [facility] MEDICINE [address] [place], [place] [phone] Pretty Molina MD Essential hypertension 08/09/2024 Patient Outreach [facility] MEDICINE [address] [place] [address] Pretty Molina MD Care Coordination ([facility] f/u) 08/06/2024 Refill [facility] [address] [place] [address] Pretty Molina MD Other chronic pain 08/02/2024 Patient Outreach [facility] [address] [place] [address] Pretty Molina MD Care Coordination ([facility]) 08/02/2024 Patient Outreach [facility] [address] [place] [address] Pretty Molina MD Care Coordination ([facility]) 07/30/2024 Refill [facility] [address] [place] [phone] Pretty Molina MD Type 2 diabetes mellitus with hyperglycemia, without long-term current use of insulin ([facility]) 07/27/2024 Patient Outreach [facility] MEDICINE [address] [place] [address] Pretty Molina MD Care Coordination ([facility]) 07/27/2024 Refill [facility] [address] [place] [address] Pretty Molina MD 07/20/2024 Orders Only GENERIC EXTERNAL DATA DEPARTMENT Provider, Generic External Data 07/19/2024 Refill [facility] [address] [place] [address] Pretty Molina MD 07/18/2024 Orders Only GENERIC EXTERNAL DATA DEPARTMENT Provider, Generic External Data 07/18/2024 Refill [facility] [address] [place] [address] Pretty Molina MD Dry eye syndrome of bilateral lacrimal glands 07/09/2024 Refill [facility] [address] [place] [address] Pretty Mloina MD Other chronic pain 07/01/2024 Refill [facility] [address] [place] [address] Cristian Briones CNM 06/25/2024 Refill [facility] MED & PEDS [address] [place] [address] Pretty Molina MD Primary hypertension 06/20/2024 Refill [facility] MEDICINE [address] [place] [address] Noemi Schwartz MD Seasonal allergies 06/16/2024 Refill [facility] MEDICINE [address] [place] [address] Pretty Molina MD Neuropathy 06/11/2024 2:00 PM EST Office Visit [facility] MEDICINE [address] [place] [address] Pretty Molina MD Chronic cough (Primary Dx); Type 2 diabetes mellitus with hyperglycemia, without long-term current use of insulin (CMS/HCC); Encounter for screening mammogram for malignant neoplasm of breast; Tobacco dependence; Encounter for preventive care 06/11/2024 Travel 06/08/2024 Telephone [facility] MEDICINE [address] [place] [address] Vicki Ghosh MA Chart Prep 06/07/2024 Telephone [facility] MEDICINE [address] [place] [address] Mauro Frye MA DME from O&P 06/06/2024 Refill [facility] MED & PEDS [address] [place] [address] Pretty Molina MD Type 2 diabetes mellitus with hyperglycemia, without long-term current use of insulin (CMS/HCC) 06/05/2024 10:30 AM EST Clinical Support [facility] MEDICINE [address] [place] [address] Sandra Boyd RN Other chronic pain (Primary Dx) 06/05/2024 Refill [facility] MEDICINE [address] [place] [address] Sandra Boyd RN Other chronic pain 06/05/2024 Refill [facility] MEDICINE [address] [place] [address] Pretty Molina MD Type 2 diabetes mellitus with hyperglycemia, without long-term current use of insulin ([facility]) 06/05/2024 Travel 06/05/2024 Telephone [facility] MEDICINE [address] [place] [address] Sandra Boyd, RN Recommend 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 Tier 3 from Last 3 Months Immunizations Name Administration [...] Description 09/11/2024 2:00 PM EDT Medication Management [address] [address] Guero Burns, PharmD [address] [place] [address] 10/04/2024 1:00 PM EDT Clinical Support [address] [address] Sandra Boyd RN 10/10/2024 10:30 AM EDT Office Visit [address] [address] Pretty Molina MD [address] [place] [address] Health Maintenance Due Date Last Done Comments CT Colonography 1960 Colonoscopy 1961 Colorectal Cancer Screening 1960 FIT DNA/Cologuard 1961 FIT 1961 FOBT 1960 Sigmoidoscopy 1961 Diabetes: Foot Exam 1971 Eye Exam 1971 Alcohol/Substance Use Screening 1973 Pneumococcal Vaccine: 50+ Years (1 of 2 - PCV) 1980 COVID-19 Vaccine ( - season) 2024 10/30/2020, 10/02/2020 Diabetes: Hemoglobin A1C 10/04/2024 024, 01/06/2024, 05/30/2023, Additional history exists SDOH Screening 12/27/2024 12/28/2023 Depression Screening 01/05/2025 01/06/2024, 01/06/20 24 Tobacco Screening 06/11/2025 06/11/2024 Mammogram 07/25/2025 07/25/2024, 09/2022, 03/10/2022, Additional history exists Lipid Panel 08/16/2025 08/16/2024, 12/13, 10/11/2022, Additional history exists DTaP/Tdap/Td Vaccines (2 [...] ? Age/Sex: 64/F ? : 1960 Unit#: [id number] ?? Attend Dr: Ramesh Gurrola MD ?Re08/16/24 ?Status: DEP SDC ? Location: HO.SSS ?Disch: ? ----- ------- SPEC : [id number] ? RECD: 08/16/24 ? STATUS: ??SOUT ? REQ NUM: [id number] ? YASMINE: 08/16/24 ? SUBM DR: Ramesh [...] microscopic examination, multiple pieces in cassette A. ??([facility]) Copies To: ?? Pretty Molina MD ?? [facility] ?? [address] ?? [place] [address] ?? [phone] ?? Ramesh Gurrola MD ?? [facility] ?? [address] ?? [place] [address] ?? [phone] ? CONTINUED ON NEXT PAGE ----- ------- Name: Violet Pascal ? Age/Sex: 64/F ? : 1960 Unit#: [id number] ?? Attend Dr: Ramesh Gurrola MD ?Re08/16/24 ?Status: DEP SDC ? Location: HO.SSS ?Disch: ? ----- ------- SPEC : [id number] ? RECD: 08/16/24-1310 ? STATUS: ??SOUT ? REQ NUM: [id number] ? YASMINE: 08/16/24-1120 ? SUBM DR: Ramesh Gurrola MD ? ENTERED: ??08/16/24-1313 ?SP TYPE: Surgical ? OTHR DR: Pretty Molina MD ? ORDERED: ??HE Stain/2, Gross Micro L4 ? ----- ------- Signed (signature on file) Wally Harding MD 08/17/24 0129 ? ----- ------- ? END OF REPORT ? us Generic External Data Provider LAB BLOOD ORDERAB LES Final Result [facility] [address] [place] [address] [phone] * (ABNORMAL) Glucose, Whole Blood (08/16/2024 10:29 AM EST) Glucose, Whole Blood 150(H) 60 - 115 mg/dL [facility] Comment:METER #: [id number] 08/16/2024 10:2 9 AM EST 08/16/2024 10:33 AM EST us Generic External Data Provider LAB BLOOD ORDERAB LES Final Result Performing Organization Address [facility] Co de Phone Number [facility] [address] [place] [phone] * Lipid Panel, Standard (08/16/2024 9:01 AM EST) Triglycerides 106 <150 mg/dL [facility] Comment:Desirable Triglyceri de: less than 150 mg/dLBorderline High Triglyceride 150-199 mg/dLHigh Triglyceride: 200-499 mg/dLVery High Triglyceride: greater than or equal to 5OO mg/dL Cholesterol 148 <200 mg/dL [facility] Comment:Desirable Cholestero l: less than 200 mg/dLBorderline High Cholesterol: 200-239 mg/dLHigh Cholesterol: greater than 239 mg/dL LDL Cholesterol Calculated 81 <100 mg/dL [facility] Comment:Desirable LDL: less than 100 mg/dLNear Optimal/Above Optimal LDL: 110- 129 mg/dLBorderline High LDL: 130-159 mg/dLHigh LDL: 160-189 mg/dLVery High LDL: greater than or equal to 190 mg/dL HDL Cholesterol 46 >40 mg/dL [facility] Comment:Desirable HDL: great er than 40 mg/dL Note: This HDL assay may give artificially low results in patients with liver disease. 08/16/2024 9:01 AM EST 08/16/2024 9:01 AM EST us Generic External Data Provider LAB BLOOD ORDERAB LES Final Result Performing Organization Address City/[facility]/ZIP Co de Phone Number [facility] [address] [place] [phone] * BI Mammogram Screening Tomosynthesis Bilateral (07/25/2024 2:30 PM EST) Anatomical Region Laterality Modality Breast Bilateral Mammography 07/25/2024 2:30 PM EST Narrative 08/03/2024 4:35 PM EST ? [facility] [place] ? [address] ?[place], [place] [address] ? Mammography Report ? Signed ? Patient: Violet Pascal ?MR#: [id number] ?? [id number] ? : 1960 ?Acct:[id number] ? Age/Sex: 64 / F ?ADM Date: 07/25/24 ? Loc: HO.MAMMO ? Attending Dr: Pretty Zayas MD ? Ordering Physician: Pretty Molina MD ?Results: ?? 2Benign Findings ? Date of Service: 07/25/24 ?Follow Up: 1 Year From Orig ?? inal Mammogram ? Procedure(s): MM tomosynthesis screening BI ?? Accession Number(s): [id number] ? cc: Pretty Molina MD ? EXAMINATION: [...] DD/ 1430 ? TD/TT: 07/25/24 1446 ? Waste Disposal Leakage Tester: ? Procedure Note Karolyn, Image - 08/03/2024 [place] [facility] [address] [place] [address] Mammography Report Signed Patient: Abraham Pascal#: [id number] : 1960cct:[id number] Age/Sex: 64 / FADM Date: 07/25/24 Loc: HO.MAMMO Attending Dr: Pretty Zayas MD Ordering Physician: Pretty Molina MDResults: 2Benign Findings Date of Service: 07/25/24Follow Up: 1 Year From Orig inal Mammogram Procedure(s): MM tomosynthesis screening BI Accession Number(s): [id number] cc: Pretty Molina MD EXAMINATION: MM SCREENING [...] 08/03/24 1632 DD/ 1430 TD/TT: 07/25/24 1446 Waste Disposal Leakage Tester: us Pretty Zayas MD IMG BI PROCEDURES Fin al Result * US Pelvis Transvaginal (07/21/2024 9:20 AM EST) Anatomical Region Laterality Modality Pelvis Ultrasound 07/21/2024 9:20 AM EST Narrative 07/21/2024 9:21 AM EST ? [facility] ?[address] ?[place] [address] ? Ultrasound Report ? Signed ? Patient: Pascal,Violet ?MR#: [id number] ?? [id number] ? : 1960 ?Acct:[id number] ? Age/Sex: 64 / F ?ADM Date: 02/07/25 ? Loc: HO.US ? Attending Dr: Ramesh Gurrola MD ? Ordering Physician: Ramesh Gurrola MD ?? Date of Service: 07/20/24 ?? Procedure(s): US pelvic and transvaginal ?? Accession Number(s): [id number] ? cc: Pretty Molina MD; Ramesh Gurrola [...] ? DD/ 9 ? TD/TT: 07/21/[address] ? Waste Disposal Leakage Tester: ? Procedure Note Dontabithater, Image - 07/21/2024 [place] [address] Ultrasound Report Signed Patient: Abraham Pascal#: [id number] : 1960cct:[id number] Age/Sex: 64 / FADM Date: 07/20/24 Loc: HO.US Attending Dr: Ramesh Gurrola MD Ordering Physician: Ramesh Gurrola MD Date of Service: 07/20/24 Procedure(s): US pelvic and transvaginal Accession Number(s): [id number] cc: Pretty Molina MD; Ramesh Gurrola MD [...] in OV> 07/21/24919 DD/ 9 TD/TT: 07/21/24919 Waste Disposal Leakage Tester: us [facility] External Provider IMG US PROCEDURES Edited Result - Final * (ABNORMAL) Basic Metabolic Panel (07/20/2024 12:01 PM EST) Sodium 137 135 - 145 mmol/L [facility] Potassium 4.2 3.3 - 5.1 mmol/L [facility] Chloride 103 96 - 108 mmol/L [facility] Carbon Dioxide 24 22 - 29 mmol/L [facility] Anion Gap 14 12 - 20 [facility] Urea Nitrogen (BUN) 18(H) 9 - 16 mg/dL [facility] Creatinine, Serum 0.75 0.5 - 1.4 mg/dL [facility] Estimated Glomerular Filt Rate >60 [facility] Comment:Chronic Kidney Disea se: Estimated GFR < 60 mL/min/1.69g3Mwcmke Kidney Disease: Estimated GFR < 15 mL/min/1.73m2 Glucose 156(H) 60 - 115 mg/dL [facility] Calcium 9.4 8.4 - 10.2 mg/dL [facility] 07/20/2024 12:0 1 PM EST 07/20/2024 12:01 PM EST Generic External Data Provider LAB BLOOD ORDERAB LES Final Result [facility] [address] [place] [address] [phone] * POCT Glucose (06/11/2024 1:58 PM EST) [facility] Glucose Blood, POC 103 60 - 200 mg/dL QC Media Lot # [id number] Lot# Expiration Date 6833,025 Blood Capillary blood specimen / Unknown 06/11/2024 1:58 PM EST Pretty Zayas MD POINT OF CARE TEST EN TER/EDIT ORDERABLES Final Result * POCT HECTOR-14 Urine Drug Screen (06/05/2024 10:01 AM EST) [facility] Oxycodone Screen, Urine Positive Urine Urine specimen obtained by clean catch procedure / Unknown 06/05/2024 10:01 AM EST Narrative Sandra Boyd RN - 06/05/2024 10:01 AM EST UTOX cup Lot#[id number] Exp. 03/07/26 Internal Pass Control Pretty Zayas MD POINT OF CARE TEST EN TER/EDIT ORDERABLES Final Result * (ABNORMAL) POCT HGB A1C (04/05/2024 3:05 PM EDT) [facility] Hemoglobin A1C 6.9(A) 4.0 - 6.0 % QC Media Lot # [id number] Lot# Expiration Date 7112,183 Blood 04/05/2024 3:05 PM EDT Result [facility] Pretty Zayas MD POINT OF CARE TEST EN TER/EDIT ORDERABLES Final Result * HPV mRNA E6/E7 w/Reflex to HPV Genotypes 16, 18/45 (04/18/2023 2:08 PM EST) [facility] HPV nRNA E6/E7 Not Detected Not Detected [facility] Comment:Methodology: Transcr iption-Mediated AmplificationThis assay detects E6/E7 viral messenger RNA (mRNA) from 14high-risk HPV types (16,18,31,33,35,39,45,51,52,56,58,59,66,68).Cervical sources are required for HPV testing.If a vaginal source from a patient who has had atotal hysterectomy with removal of cervix wassubmitted, please contact the testing laboratoryfor alternative testing options.For additional information, please refer [email or web address]/[email or web address](This link if provided for information/educational purposes only.)THIS TEST WAS PERFORMED AT:[employer] [place] [phone] ANNE MD HPV mRNA E6/E7 TNP [facility] HPV 16 RNA TNP [facility] HPV 18/45 RNA [facility] 04/18/2023 2:08 PM EST 04/19/2023 8:20 AM EST Cristian Briones [facility] CYTOLOGY ORDERABLES F inal Result [facility] [address] [place] [address] [phone] * Pap Smear (04/18/2023 2:08 PM EST) 04/18/2023 2:08 PM EST 04/19/2023 8:20 AM EST Narrative [facility] - 04/26/2023 1:40 PM EST ----- ------- Name: Violet Pascal ? Age/Sex: 63/F ? : 1960 Unit#: [id number] ?? Attend Dr: CRISTIAN BRIONES CNM ?Re04/18/23 ?Status: DEP REF ? Location: [facility] ? Disch: ? ----- ------- SPEC : [id number] ?RECD: 04/19/23 ? STATUS: ??SOUT ? REQ NUM: [id number] ? YASMINE: 04/18/23 ? SUBM DR: CRISTIAN [...] 66, 68) ?? HPV testing performed by [employer], [place], [place]. ??See reference laboratory ?? pion of the EMR for entire report. ?Clinical Information LMP: Postmenopausal Previous PAP test: Unknown date/findings ? Material Received ?? ThinPrep-Cervical ----- ------- Signed (signature on file) MARIOLA Walker (ASCP) 04/26/23 1340 ? ----- ------- ? END OF REPORT ? us Cristian Briones [facility] CYTOLOGY ORDERABLES F inal Result [facility] [address] [place] [phone] * Hepatitis C Antibody (02/03/2021 12:01 PM EDT) Pathologist [facility] Hepatitis C Antibody Nonreactive Nonreactive [facility] [...] detection of this assay. ?? [facility] HIV Ag/Ab Combo assay result and [...] [facility] [address] from Last 3 Months or Most Recently Relevant to Health Maintenance Insurance [facility] C3 Care Teams Hide Washer Relationship Specialty Start Date End Date Pretty Molina MD [address] [place] [address] PCP - General Family Medicine 12/24/20
--- OUTSIDE RECORDS SUMMARY | 2024-08-29 09:59 | XMS_ITS | Encounter Summary ---
Author Organization [employer] Address [address] [facility] 7t [place] [address] Care Team Providers Care Animation Artist Name Role Phone Pretty Molina MD Primary Care Provide r Encounter Details Date Type Department Care Team (Late st Contact Info) Description 07/01/2022 Orders Only [facility] MEDICINE [address] [place] [address] Marti Cedillo RN Chronically on opiate therapy [...] Description 09/11/2024 2:00 PM EDT Medication Management [address] [address] Guero Burns, PharmD [address] [place] [address] 10/04/2024 1:00 PM EDT Clinical Support [address] [address] Sandra Boyd, TONY 10/10/2024 10:30 AM EDT Office Visit [address] [address] Pretty Molina MD [address] [place] [address] documented as of this encounter Visit Diagnoses Diagnosis Chronically on opiate therapy- Primary documented in this encounter Care Teams Animation Artist Relationship Specialty Start Date End Date Pretty Molina MD [address] [place] [address] PCP - General Family Medicine 12/24/20 documented as of this encounter
--- OUTSIDE RECORDS SUMMARY | 2024-08-29 09:59 | XMS_ITS | Encounter Summary ---
Author Organization [employer] Address [address] [facility] 7t [place] [address] Care Team Providers Care Juvenile Detention Officer Name Role Phone Pretty Molina MD Primary Care Provide r Encounter Details Date Type Department Care Team (Latest Contact Info) Description 2019 Abstract [facility] CONVERSIONS Dental, Provider, DDS Social History [...] Description 09/11/2024 2:00 PM EDT Medication Management [address] [address] Guero Burns, PoloD [address] [place] [address] 10/04/2024 1:00 PM EDT Clinical Support [address] [address] Sandra Boyd, RN 10/10/2024 10:30 AM EDT Office Visit [address] [address] Pretty Molina MD [address] [place] [address] documented as of this encounter Visit Diagnoses Not on filedocumented in this encounter Care Teams Juvenile Detention Officer Relationship Specialty Start Date End Date Pretty Molina MD [address] [place] [phone] PCP - General Family Medicine 12/24/20 documented as of this encounter
--- OUTSIDE RECORDS SUMMARY | 2024-08-29 09:59 | XMS_ITS | Encounter Summary ---
Author Organization [employer] Address [address] [facility] 7t [place] [address] Care Team Providers Care Rotating Equipment Specialist Name Role Phone Pretty Molian MD Primary Care Provide r Reason for Visit * Reason Onset Date Comments Med Refill 06/10/2022 Encounter Details Date Type Department Care Team (Late st Contact Info) Description 06/10/2022 Refill [facility] [address] [place] [address] Pretty Molina MD [address] [place], [place] [phone] Social History Tobacco Use Types Packs/Day Years [...] Description 09/11/2024 2:00 PM EDT Medication Management [facility] [address] [place] [address] Guero Burns, PharmD [address] [place] [address] 10/04/2024 1:00 PM EDT Clinical Support [address] [address] Sandra Boyd, RN 10/10/2024 10:30 AM EDT Office Visit [address] [address] Pretty Molina MD [address] [place] [address] documented as of this encounter Visit Diagnoses Not on filedocumented in this encounter Care Teams Rotating Equipment Specialist Relationship Specialty Start Date End Date Pretty Molina MD [address] [place] [phone] PCP - General Family Medicine 12/24/20 documented as of this encounter
--- OUTSIDE RECORDS SUMMARY | 2024-08-29 09:59 | XMS_ITS | Encounter Summary ---
Author Organization [employer] Address [address] [facility] 7t [place] [address] Care Team Providers Care Chicken Hatchery Helper Name Role Phone Pretty Molina MD Primary Care Provide r Reason for Visit * Reason Comments Med Refill Encounter Details Date Type Department Care Team (Late st Contact Info) Description 07/05/2023 Refill [facility] PEDS [address] [place], [place] [phone] Pretty Molina MD [address] [place] [address] Social History Tobacco Use Types Packs/Day Years [...] Description 09/11/2024 2:00 PM EDT Medication Management [address] [address] Guero Burns, PharmD [address] [place] [address] 10/04/2024 1:00 PM EDT Clinical Support [address] [address] Sandra Boyd, TONY 10/10/2024 10:30 AM EDT Office Visit [address] [address] Pretty Molina MD [address] [place] [address] documented as of this encounter Visit Diagnoses Not on filedocumented in this encounter Additional Health Concerns Assessment Noted Time PHQ-9 Depression Total Score: 12 023 3:08 PM EDT documented as of this encounter Care Teams Chicken Hatchery Helper Relationship Specialty Start Date End Date Pretty Molina MD [address] [place] [phone] PCP - General Family Medicine 12/24/20 documented as of this encounter
--- OUTSIDE RECORDS SUMMARY | 2024-08-29 09:59 | XMS_ITS | Encounter Summary ---
Author Organization [employer] Address [address] [facility] 7t [place] [address] Care Team Providers Care Reliner Name Role Phone Pretty Molina MD Primary Care Provide r Reason for Visit * Reason Comments Med Refill Encounter Details Date Type Department Care Team (Late st Contact Info) Description 05/02/2023 Refill [facility] [address] [place] [address] Jocelyn Bender DO [address] [place] [address] Seasonal allergic rhinitis, unspecified trigger Social History [...] Description 09/11/2024 2:00 PM EDT Medication Management [address] [address] Guero Burns, PharmD [address] [place] [address] 10/04/2024 1:00 PM EDT Clinical Support [address] [address] Sandra Boyd, TONY 10/10/2024 10:30 AM EDT Office Visit [address] [address] Pretty Molina MD [address] [place] [address] documented as of this encounter Visit Diagnoses Diagnosis Seasonal allergic rhinitis, unspecified trigger documented in this encounter Additional Health Concerns Assessment Noted Time PHQ-9 Depression Total Score: 12 023 3:08 PM EDT documented as of this encounter Care Teams Reliner Relationship Specialty Start Date End Date Pretty Molina MD [address] [place] [phone] PCP - General Family Medicine 12/24/20 documented as of this encounter
--- OUTSIDE RECORDS SUMMARY | 2024-08-29 09:59 | XMS_ITS | Encounter Summary ---
Author Organization [employer] Address 75 [facility] 7t [place] [address] Care Team Providers Care Tail Puller Name Role Phone Pretty Molina MD Primary Care Provide r Reason for Visit * Reason Comments Med Refill Encounter Details Date Type Department Care Team (Late st Contact Info) Description 06/11/2022 Refill [facility]INE [address] [place], [place] [phone] Yasmine Hernandez MD 230 [place], [place] [phone] Chronic pain syndrome Social History Tobacco Use [...] Cedillo RN - 06/15/2022 10:45 AM EST Candle Wrapper ck 06/15/22. documented in this encounter Plan of Treatment Upcoming Encounters Date Type Department Care Team (Late st Contact Info) Description 09/11/2024 2:00 PM EDT Medication Management [facility] 230 [place] [address] Guero Burns, PharmD 230 [place] [address] 10/04/2024 1:00 PM EDT Clinical Support [address] [address] Sandra Boyd, RN 10/10/2024 10:30 AM EDT Office Visit [address] [address] Pretty Molina MD [address] [place] [address] documented as of this encounter Visit Diagnoses Diagnosis Chronic pain syndrome documented in this encounter Care Teams Tail Puller Relationship Specialty Start Date End Date Pretty Molina MD [address] [place] [address] PCP - General Family Medicine 12/24/20 documented as of this encounter
--- OUTSIDE RECORDS SUMMARY | 2024-08-29 09:59 | XMS_ITS | Encounter Summary ---
Author Organization [employer] Address 75 [facility] 7t [place] [address] Care Team Providers Care Eastern Philosophy Professor Name Role Phone Pretty Molina MD Primary Care Provide r Reason for Visit * Reason Comments Med Refill Encounter Details Date Type Department Care Team (Late st Contact Info) Description 03/30/2023 Refill [facility] 230 [place], [place] [phone] Pretty Molina MD 230 [place] [address] Other chronic pain Social History Tobacco Use [...] Description 09/11/2024 2:00 PM EDT Medication Management [facility] [address] [place] [address] Guero Burns, PharmD [address] [place] [address] 10/04/2024 1:00 PM EDT Clinical Support [address] [address] Sandra Boyd, TONY 10/10/2024 10:30 AM EDT Office Visit [address] [address] Pretty Molina MD [address] [place] [address] documented as of this encounter Visit Diagnoses Diagnosis Other chronic pain documented in this encounter Additional Health Concerns Assessment Noted Time PHQ-9 Depression Total Score: 12 023 3:08 PM EDT documented as of this encounter Care Teams Eastern Philosophy Professor Relationship Specialty Start Date End Date Pretty Molina MD [address] [place] [address] PCP - General Family Medicine 12/24/20 documented as of this encounter
--- OUTSIDE RECORDS SUMMARY | 2024-08-29 09:59 | XMS_ITS | Encounter Summary ---
Author Organization [employer] Address 75 [facility] 7t [place] [address] Care Team Providers Care Assurance Specialist Name Role Phone Pretty Molina MD Primary Care Provide r Reason for Visit * Reason Comments Care Coordination SDOH Encounter Details Date Type Department Care Team (Latest Contact Info) Description 08/02/2024 Patient Outreach [facility] [address] [place] [address] Pretty Molina MD 230 [place] [address] Care Coordination (SDOH) Social History Tobacco Use [...] Wednesdays, and Walk-In Urgent Care Located in [facility]. Patient provided with after-hours line for [facility], , which offer nighttime triage service and option to transfer to marketing content specialist provider ifneeded. Patient verbalizes understanding, and able to repeat back to report writer. A follow up call will be placed within 10 days, patient agrees with plan. documented in this encounter Plan of Treatment Upcoming Encounters Date Type Department Care Team ([facility] st Contact Info) Description 09/11/2024 2:00 PM EDT Medication Management [facility] [address] [place] [address] Guero Burns, PharmD [address] [place] [address] 10/04/2024 1:00 PM EDT Clinical Support [address] [address] Sandra Boyd, RN 10/10/2024 10:30 AM EDT Office Visit [address] [address] Pretty Molina MD [address] [place] [address] documented as of this encounter Visit Diagnoses Not on filedocumented in this encounter Additional Health Concerns Assessment Noted Time PHQ-9 Depression Total Score: 4 01/06/20 24 2:22 PM EDT documented as of this encounter Care Teams Assurance Specialist Relationship Specialty Start Date End Date Pretty Molina MD [address] [place] [address] PCP - General Family Medicine 12/24/20 documented as of this encounter
--- OUTSIDE RECORDS SUMMARY | 2024-08-29 09:59 | XMS_ITS | Encounter Summary ---
Author Organization [employer] Address 75 [facility] 7t [place] [address] Care Team Providers Care Baker Operator Automatic Name Role Phone Pretty Molina MD Primary Care Provide r Encounter Details Date Type Department Care Team (Latest Contact Info) Description 04/21/2020 Abstract [facility] CONVERSIONS Dental, Provider, DDS Social History [...] Description 09/11/2024 2:00 PM EDT Medication Management [address] [address] Guero Burns, PoloD [address] [place] [address] 10/04/2024 1:00 PM EDT Clinical Support [address] [address] Sandra Boyd, RN 10/10/2024 10:30 AM EDT Office Visit [address] [address] Pretty Molina MD 230 [place] [address] documented as of this encounter Visit Diagnoses Not on filedocumented in this encounter Care Teams Baker Operator Automatic Relationship Specialty Start Date End Date Pretty Molina MD [address] [place] [address] PCP - General Family Medicine 12/24/20 documented as of this encounter
--- OUTSIDE RECORDS SUMMARY | 2024-08-29 09:59 | XMS_ITS | Encounter Summary ---
Author Organization [employer] Address 75 [facility] 7t [place] [address] Care Team Providers Care Sde Name Role Phone Pretty Molina MD Primary Care Provide r Reason for Visit * Reason Comments Med Refill Encounter Details Date Type Department Care Team (Late st Contact Info) Description 05/10/2023 Refill [facility] MED[facility]INE 230 [place], [place] [phone] Pretty Molina MD 230 [place], [place] [phone] Other chronic pain Social History Tobacco Use [...] Description 09/11/2024 2:00 PM EDT Medication Management [facility] MED[facility]INE [address] [place] [address] Guero Burns, PharmD [address] [place] [address] 10/04/2024 1:00 PM EDT Clinical Support [address] [address] Sandra Boyd, TONY 10/10/2024 10:30 AM EDT Office Visit [address] [address] Pretty Molina MD [address] [place] [address] documented as of this encounter Visit Diagnoses Diagnosis Other chronic pain documented in this encounter Additional Health Concerns Assessment Noted Time PHQ-9 Depression Total Score: 12 023 3:08 PM EDT documented as of this encounter Care Teams Sde Relationship Specialty Start Date End Date Pretty Molina MD [address] [place] [address] PCP - General Family Medicine 12/24/20 documented as of this encounter
--- OUTSIDE RECORDS SUMMARY | 2024-08-29 09:59 | XMS_ITS | Encounter Summary ---
Author Organization [employer] Address 75 [facility] 7t [place] [address] Care Team Providers Care Thermostat Repairer Name Role Phone Pretty Molina MD Primary Care Provide r Reason for Visit * Reason Comments Med Refill Encounter Details Date Type Department Care Team (Late st Contact Info) Description 02/28/2023 Refill [facility] MEDICINE 230 [place], [place] [phone] Pretty Molina MD 230 [place], [place] [phone] Social History Tobacco Use Types Packs/Day Years [...] Description 09/11/2024 2:00 PM EDT Medication Management [facility] MEDICINE 230 [place] [address] Guero Burns, PharmD 230 [place], [place] [phone] 10/04/2024 1:00 PM EDT Clinical Support [address] [address] Sandra Boyd, RN 10/10/2024 10:30 AM EDT Office Visit [address] [address] Pretty Molina MD [address] [place] [address] documented as of this encounter Visit Diagnoses Not on filedocumented in this encounter Additional Health Concerns Assessment Noted Time PHQ-9 Depression Total Score: 12 11/24/ 023 3:08 PM EDT documented as of this encounter Care Teams Thermostat Repairer Relationship Specialty Start Date End Date Pretty Molina MD [address] [place] [address] PCP - General Family Medicine 12/24/20 documented as of this encounter
--- OUTSIDE RECORDS SUMMARY | 2024-08-29 09:59 | XMS_ITS | Encounter Summary ---
Author Organization [employer] Address 75 [facility] 7t [place] [address] Care Team Providers Care Logistics Lead Name Role Phone Pretty Molina MD Primary Care Provide r Encounter Details Date Type Department Care Team (Latest Contact Info) Description 05/31/2019 Abstract [facility] CONVERSIONS Dental, Provider, DDS Social History [...] Description 09/11/2024 2:00 PM EDT Medication Management [address] [place] [address] [address] Guero Burns, PoloD [address] [place] [address] 10/04/2024 1:00 PM EDT Clinical Support [address] [place] [address] [address] Sandra Boyd, RN 10/10/2024 10:30 AM EDT Office Visit [address] [place] [address] [address] Pretty Molina MD 230 [place] [address] documented as of this encounter Visit Diagnoses Not on filedocumented in this encounter Care Teams Logistics Lead Relationship Specialty Start Date End Date Pretty Molina MD [address] [place] [address] PCP - General Family Medicine 12/24/20 documented as of this encounter
--- OUTSIDE RECORDS SUMMARY | 2024-08-29 09:59 | XMS_ITS | Encounter Summary ---
Author Organization [employer] Address 75 [facility] 7t [place] [address] Care Team Providers Care Woodworking Belt Sander Name Role Phone Pretty Molina MD Primary Care Provide r Reason for Visit * Reason Onset Date Comments Med Refill 08/06/2024 Encounter Details Date Type Department Care Team (Late st Contact Info) Description 08/06/[address] [facility] MEDICINE 230 [place] [address] Pretty Molina MD 230 [place] [address] Other chronic pain Social History Tobacco Use [...] 5-325 MG tablet To be sent to: [facility] documented in this encounter Plan of Treatment Upcoming Encounters Date Type Department Care Team (Late st Contact Info) Description 09/11/2024 2:00 PM EDT Medication Management [facility] MEDICINE [address] [place] [address] Guero Burns, PoloD [address] [place] [address] 10/04/2024 1:00 PM EDT Clinical Support [facility] MED[facility]INE [address] [place] [address] Sandra Boyd RN 10/10/2024 10:30 AM EDT Office Visit [facility] [address] [place] [address] Pretty Molina MD [address] [place] [address] documented as of this encounter Visit Diagnoses Diagnosis Other chronic pain documented in this encounter Additional Health Concerns Assessment Noted Time PHQ-9 Depression Total Score: 4 01/06/20 24 2:22 PM EDT documented as of this encounter Care Teams Woodworking Belt Sander Relationship Specialty Start Date End Date Pretty Molina MD 230 [place] [address] PCP - General Family Medicine 12/24/20 documented as of this encounter
--- OUTSIDE RECORDS SUMMARY | 2024-08-29 09:59 | XMS_ITS | Encounter Summary ---
Author Organization [employer] Address 75 [facility] 7t [place] [address] Care Team Providers Care Business Technology Analyst Name Role Phone Pretty Molina MD Primary Care Provide r Reason for Visit * Reason Comments Med Refill Encounter Details Date Type Department Care Team (Late st Contact Info) Description 08/15/2024 Refill [facility] MEDICINE 230 [place], [place] [phone] Pretty Molina MD 230 [place] [address] Essential hypertension Social History Tobacco Use Types [...] Description 09/11/2024 2:00 PM EDT Medication Management [address] [address] Guero Burns, PharmD [address] [place] [address] 10/04/2024 1:00 PM EDT Clinical Support [address] [address] Sandra Boyd, TONY 10/10/2024 10:30 AM EDT Office Visit [address] [address] Pretty Molina MD [address] [place] [address] documented as of this encounter Visit Diagnoses Diagnosis Essential hypertension Unspecified essential hypertension documented in this encounter Additional Health Concerns Assessment Noted Time PHQ-9 Depression Total Score: 4 01/06/20 24 2:22 PM EDT documented as of this encounter Care Teams Business Technology Analyst Relationship Specialty Start Date End Date Pretty Molina MD [address] [place] [address] PCP - General Family Medicine 12/24/20 documented as of this encounter
--- OUTSIDE RECORDS SUMMARY | 2024-08-29 09:59 | XMS_ITS | Encounter Summary ---
Author Organization [employer] Address 75 [facility] 7t [place] [address] Care Team Providers Care Sole Edge Inker Machine Name Role Phone Pretty Molina MD Primary Care Provide r Reason for Visit * Reason Comments Med Refill Encounter Details Date Type Department Care Team (Late st Contact Info) Description 07/01/2024 Refill [facility] 230 [place] [address] Keysha Nagel, ERIC 230 [place] [address] Social History Tobacco Use Types Packs/Day Years [...] Description 09/11/2024 2:00 PM EDT Medication Management [address] [address] Guero Burns, PharmD [address] [place] [address] 10/04/2024 1:00 PM EDT Clinical Support [address] [address] Sandra Boyd, RN 10/10/2024 10:30 AM EDT Office Visit [address] [address] Pretty Molina MD [address] [place] [address] documented as of this encounter Visit Diagnoses Not on filedocumented in this encounter Additional Health Concerns Assessment Noted Time PHQ-9 Depression Total Score: 4 01/06/20 2:22 PM EDT documented as of this encounter Care Teams Sole Edge Inker Machine Relationship Specialty Start Date End Date Pretty Molina MD [address] [place] [address] PCP - General Family Medicine 12/24/20 documented as of this encounter
--- OUTSIDE RECORDS SUMMARY | 2024-08-29 09:59 | XMS_ITS | Encounter Summary ---
Author Organization [employer] Address 75 [facility] 7t [place] [address] Care Team Providers Care Deployment Manager Name Role Phone Pretty Molina MD Primary Care Provide r Encounter Details Date Type Department Care Team (Late st Contact Info) Description 07/12/2022 Orders Only [facility] MED & PEDS [address] [place], [place] [phone] Jocelyn Fleming LPN Social History Tobacco Use [...] Description 09/11/2024 2:00 PM EDT Medication Management [address] [address] Guero Burns, PharmD [address] [place] [address] 10/04/2024 1:00 PM EDT Clinical Support [address] [phone] Sandra Boyd, RN 10/10/2024 10:30 AM EDT Office Visit [address] [address] Pretty Molina MD [address] [place] [address] [phone] documented as of this encounter Visit Diagnoses Not on filedocumented in this encounter Care Teams Deployment Manager Relationship Specialty Start Date End Date Pretty Molina MD 230 [place], [place] [phone] PCP - General Family Medicine 12/24/20 documented as of this encounter
--- OUTSIDE RECORDS SUMMARY | 2024-08-29 09:59 | XMS_ITS | Encounter Summary ---
Author Organization [employer] Address 75 [facility] 7t [place] [address] Care Team Providers Care Hammerer Tab Name Role Phone Pretty Molina MD Primary Care Provide r Encounter Details Date Type Department Care Team ([facility] Contact Info) Description 09/01/2022 Orders Only [facility] CHC MED & PEDS 505 [place], [place] [phone] Jocelyn Fleming LPN Social History Tobacco Use [...] 2:00 PM EDT Medication Management [facility] MEDICINE [address] [place] [address] Guero Burns, PharmD 230 [place], [place] [phone] 10/04/2024 1:00 PM EDT Clinical Support [facility] MEDICINE 230 [place], [place] [phone] Sandra Boyd, RN 10/10/2024 10:30 AM EDT Office Visit [facility] MEDICINE 230 [place] [address] Pretty Molina MD [address] [place] [address] documented as of this encounter Visit Diagnoses Not on filedocumented in this encounter Care Teams Hammerer Tab Relationship Specialty Start Date End Date Pretty Molina MD [address] [place] [address] PCP - General Family Medicine 12/24/20 documented as of this encounter
--- OUTSIDE RECORDS SUMMARY | 2024-08-29 09:59 | XMS_ITS | Encounter Summary ---
Author Organization [employer] Address 75 [facility] 7t [place] [address] Care Team Providers Care Center Aisle Cashier Name Role Phone Pretty Molina MD Primary Care Provide r Reason for Visit * Reason Comments Med Refill Encounter Details Date Type Department Care Team (Late st Contact Info) Description 07/30/2024 Refill [facility] MEDICINE 230 [place], [place] [phone] Pretty Molina MD 230 [place] [address] Type 2 diabetes mellitus with hyperglycemia, without long-term current use of insulin ([facility]) Social History Tobacco Use Types Packs/Day [...] Description 09/11/2024 2:00 PM EDT Medication Management [address] [address] Guero Burns, PharmD [address] [place] [address] 10/04/2024 1:00 PM EDT Clinical Support [address] [address] Sandra Boyd RN 10/10/2024 10:30 AM EDT Office Visit [address] [address] Pretty Molina MD [address] [place] [address] documented as of this encounter Visit Diagnoses Diagnosis Type 2 diabetes mellitus with hyperglycemia, without long-term current use of insulin ([facility]) documented in this encounter Additional Health Concerns Assessment Noted Time PHQ-9 Depression Total Score: 4 01/06/20 24 2:22 PM EDT documented as of this encounter Care Teams Center Aisle Cashier Relationship Specialty Start Date End Date Pretty Molina MD 230 [place] [address] PCP - General Family Medicine 12/24/20 documented as of this encounter
--- OUTSIDE RECORDS SUMMARY | 2024-08-29 09:59 | XMS_ITS | Encounter Summary ---
Author Organization [employer] Address 75 [facility] 7t [place] [address] Care Team Providers Care Compensator Worker Name Role Phone Pretty Molina MD Primary Care Provide r Reason for Visit * Reason Comments Med Refill Encounter Details Date Type Department Care Team (Late st Contact Info) Description 05/09/2023 Refill [facility] MEDICINE 230 [place], [place] [phone] Pretty Molina MD 230 [place], [place] [phone] Other chronic pain Social History Tobacco Use [...] Description 09/11/2024 2:00 PM EDT Medication Management [facility] MEDICINE [address] [place] [address] Guero Burns, PharmD [address] [place] [address] 10/04/2024 1:00 PM EDT Clinical Support [address] [address] Sandra Boyd, TONY 10/10/2024 10:30 AM EDT Office Visit [address] [address] Pretty Molina MD [address] [place] [address] documented as of this encounter Visit Diagnoses Diagnosis Other chronic pain documented in this encounter Additional Health Concerns Assessment Noted Time PHQ-9 Depression Total Score: 12 023 3:08 PM EDT documented as of this encounter Care Teams Compensator Worker Relationship Specialty Start Date End Date Pretty Molina MD [address] [place] [address] PCP - General Family Medicine 12/24/20 documented as of this encounter
--- OUTSIDE RECORDS SUMMARY | 2024-08-29 09:59 | XMS_ITS | Encounter Summary ---
Author Organization [email or web address] Address 75 [facility] 7t [place] [address] Care Team Providers Care Automobile Carpets Molder Name Role Phone Pretty Molina MD Primary Care Provide r Reason for Visit * Reason Comments Med Refill Encounter Details Date Type Department Care Team ([facility] st Contact Info) Description 03/23/2023 Refill [facility] MED & PEDS 505 [place], [place] [phone] Pretty Molina MD 230 [place] [address] Neuropathy Social History Tobacco Use Types Packs/Day [...] 2:00 PM EDT Medication Management [facility] MEDICINE [address] [place] [address] Guero Burns, PharmD [address] [place] [address] 10/04/2024 1:00 PM EDT Clinical Support [address] [address] Sandra Boyd, TONY 10/10/2024 10:30 AM EDT Office Visit [address] [address] Pretty Molina MD [address] [place] [address] documented as of this encounter Visit Diagnoses Diagnosis Neuropathy Mononeuritis of unspecified site documented in this encounter Additional Health Concerns Assessment Noted Time PHQ-9 Depression Total Score: 12 023 3:08 PM EDT documented as of this encounter Care Teams Automobile Carpets Molder Relationship Specialty Start Date End Date Pretty Molina MD [address] [place] [address] PCP - General Family Medicine 12/24/20 documented as of this encounter
--- OUTSIDE RECORDS SUMMARY | 2024-08-29 09:59 | XMS_ITS | Encounter Summary ---
Author Organization [employer] Address 75 [facility] 7t [place] [address] Care Team Providers Care Occupational Analyst Name Role Phone Pretty Molina MD Primary Care Provide r Reason for Visit * Reason Comments Med Refill Encounter Details Date Type Department Care Team (Late st Contact Info) Description 06/06/2024 Refill [facility] MED & PEDS 505 [place] [address] Pretty Molina MD 230 [place] [address] Type 2 diabetes mellitus with hyperglycemia, without long-term current use of insulin ([facility]) Social History Tobacco Use Types [...] 09/11/2024 2:00 PM EDT Medication Management [address] [address] Guero Burns, PharmD [address] [place] [address] 10/04/2024 1:00 PM EDT Clinical Support [address] [address] Sandra Boyd RN 10/10/2024 10:30 AM EDT Office Visit [address] [address] Pretty Molina MD [address] [place] [address] documented as of this encounter Visit Diagnoses Diagnosis Type 2 diabetes mellitus with hyperglycemia, without long-term current use of insulin ([facility]) documented in this encounter Additional Health Concerns Assessment Noted Time PHQ-9 Depression Total Score: 4 01/06/20 2:22 PM EDT documented as of this encounter Care Teams Occupational Analyst Relationship Specialty Start Date End Date Pretty Molina MD 230 [place] [address] PCP - General Family Medicine 12/24/20 documented as of this encounter
--- OUTSIDE RECORDS SUMMARY | 2024-08-29 10:00 | XMS_ITS | Encounter Summary ---
Author Organization [employer] Address 75 [facility] 7t [place] [address] Care Team Providers Care Groundhand Name Role Phone Pretty Molina MD Primary Care Provide r Reason for Visit * Reason Comments Care Coordination SDOH Encounter Details Date Type Department Care Team (Latest Contact Info) Description 08/16/2024 Patient Outreach [facility] MEDICINE [address] [place] [address] Pretty Molina MD 230 [place] [address] Care Coordination (SDOH) Social History Tobacco Use [...] at this time. LVM introducing herself from [facility] CM Department. Requested call back. CHWreinforced direct contact information or for any additional questions or concernsand extended clinic hours on Mondays and Wednesdays, and Walk-In Urgent Care Located in [place] of [facility]. Patient provided with after-hours line for [facility], , which offer nighttime triage service and option to transfer to emissions testing technician provider if needed. CHW will attempt another follow up call within 10 days. documented in this encounter Plan of Treatment Upcoming Encounters Date Type Department Care Team (Late st Contact Info) Description 09/11/2024 2:00 PM EDT Medication Management [facility] MEDICINE [address] [place] [address] Guero Burns, PharmD [address] [place] [address] 10/04/2024 1:00 PM EDT Clinical Support [facility] MEDICINE [address] [place] [address] [phone] Sandra Boyd, RN 10/10/2024 10:30 AM EDT Office Visit [facility] MEDICINE [address] [place], [place] [phone] Pretty Molina MD [address] [place] [address] documented as of this encounter Visit Diagnoses Not on filedocumented in this encounter Additional Health Concerns Assessment Noted Time PHQ-9 Depression Total Score: 4 01/06/20 24 2:22 PM EDT documented as of this encounter Care Teams Groundhand Relationship Specialty Start Date End Date Pretty Molina MD [address] [place] [address] [phone] PCP - General Family Medicine 12/24/20 documented as of this encounter
--- OUTSIDE RECORDS SUMMARY | 2024-08-29 10:00 | XMS_ITS | Encounter Summary ---
Author Organization [employer] Address 75 [facility] 7t [place] [address] Care Team Providers Care Data Coder Operator Name Role Phone Pretty Molina MD Primary Care Provide r Reason for Visit * Reason Onset Date Comments Nurse Triage 04/26/2024 Encounter Details Date Type Department Care Team ([facility] st Contact Info) Description 04/26/2024 Telephone [facility] MEDICINE 230 [place] [address] Pretty Molina MD 230 [place] [address] Nurse Triage Social History Tobacco Use Types [...] PM EST Please obtain note from [facility] ED visit 04/24/24, Upcoming appt with PCP tomorrow at 11am. * Telephone Encounter - Valeria Hooper LPN - 04/26/2024 11:58 AM EST Triage call returned with BLS #[id number] Yonathan. Patient reports that she was seen on 04/19/24. Patient is reporting following her Flu shot she has been feeling delicate . Chart shows Flu given in March. Call dropped. Return call with [employer] [facility] [phone]. Patient reports seen at [facility] and not improved with cough and congestion. Has no reported fever. Patient then reports presented to [facility] ED on 04/24/24 and was [...] caller accepted this outcome. Contact pt at [phone] documented in this encounter Plan of Treatment Upcoming Encounters Date Type Department Care Team (Late st Contact Info) Description 09/11/2024 2:00 PM EDT Medication Management [address] [address] Guero Burns, PharmD [address] [place] [address] 10/04/2024 1:00 PM EDT Clinical Support [address] [address] Sandra Boyd, RN 10/10/2024 10:30 AM EDT Office Visit [address] [address] Pretty Molina MD [address] [place] [address] documented as of this encounter Visit Diagnoses Not on filedocumented in this encounter Additional Health Concerns Assessment Noted Time PHQ-9 Depression Total Score: 4 07/26/20 24 2:22 PM EDT documented as of this encounter Care Teams Data Coder Operator Relationship Specialty Start Date End Date Pretty Molina MD 230 [place] [address] PCP - General Family Medicine 12/24/20 documented as of this encounter
--- OUTSIDE RECORDS SUMMARY | 2024-08-29 10:00 | XMS_ITS | Encounter Summary ---
Author Organization [employer] Address 75 [facility] 7t [place] [address] Care Team Providers Care Dredge Engineer Name Role Phone Pretty Molina MD Primary Care Provide r Reason for Visit * Reason Comments Med Refill Encounter Details Date Type Department Care Team (Late st Contact Info) Description 04/21/2024 Refill [facility] MEDICINE 230 [place], [place] [phone] Pretty Molina MD 230 [place] [address] Neuropathy Social History Tobacco Use Types Packs/Day [...] Description 09/11/2024 2:00 PM EDT Medication Management [facility] MEDICINE [address] [place] [address] Guero Burns, PharmD [address] [place] [address] 10/04/2024 1:00 PM EDT Clinical Support [address] [address] Sandra Boyd, RN 10/10/2024 10:30 AM EDT Office Visit [address] [address] Pretty Molina MD [address] [place] [address] documented as of this encounter Visit Diagnoses Diagnosis Neuropathy Mononeuritis of unspecified site documented in this encounter Additional Health Concerns Assessment Noted Time PHQ-9 Depression Total Score: 4 01/06/20 24 2:22 PM EDT documented as of this encounter Care Teams Dredge Engineer Relationship Specialty Start Date End Date Pretty Molina MD [address] [place] [address] PCP - General Family Medicine 12/24/20 documented as of this encounter
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
--- OUTSIDE RECORDS SUMMARY | 2024-08-29 10:00 | XMS_ITS | Encounter Summary ---
Author Organization [employer] Address 75 [facility] 7t [place] [address] Care Team Providers Care Legal Mediator Name Role Phone Pretty Molina MD Primary Care Provide r Reason for Visit * Reason Onset Date Comments Med Refill 01/05/2023 Encounter Details Date Type Department Care Team (Late st Contact Info) Description 01/05/2023 Telephone [facility] MEDICINE 230 [place] [address] Pretty Molina MD 230 [place] [address] Med Refill Social History Tobacco Use Types [...] 09/11/2024 2:00 PM EDT Medication Management [address] [address] Guero Burns, PoloD [address] [place] [address] 10/04/2024 1:00 PM EDT Clinical Support [address] [phone] Sandra Boyd, RN 10/10/2024 10:30 AM EDT Office Visit [address] [address] Pretty Molina MD [address] [place] [address] documented as of this encounter Visit Diagnoses Not on filedocumented in this encounter Additional Health Concerns Assessment Noted Time PHQ-9 Depression Total Score: 12 023 3:08 PM EDT documented as of this encounter Care Teams Legal Mediator Relationship Specialty Start Date End Date Pretty Molina MD [address] [place] [address] [phone] PCP - General Family Medicine 12/24/20 documented as of this encounter
--- OUTSIDE RECORDS SUMMARY | 2024-08-29 10:00 | XMS_ITS | Encounter Summary ---
Author Organization [employer] Address 75 [facility] 7t [place] [address] Care Team Providers Care Construction Lineman Name Role Phone Pretty Molina MD Primary Care Provide r Reason for Visit * Reason Comments Med Refill Encounter Details Date Type Department Care Team (Late Contact Info) Description 12/27/2022 Refill [facility] MEDICINE 230 [place] [address] Jocelyn Bender DO 230 [place] [address] Seasonal allergic rhinitis, unspecified trigger Social History [...] Department Care Team (Late Contact Info) Description 09/11/2024 2:00 PM EDT Medication Management [address] [address] Guero Burns, PharmD [address] [place] [address] 10/04/2024 1:00 PM EDT Clinical Support [address] [address] Sandra Boyd, RN 10/10/2024 10:30 AM EDT Office Visit [address] [address] Pretty Molina MD [address] [place] [address] documented as of this encounter Visit Diagnoses Diagnosis Seasonal allergic rhinitis, unspecified trigger documented in this encounter Additional Health Concerns Assessment Noted Time PHQ-9 Depression Total Score: 12 023 3:08 PM EDT documented as of this encounter Care Teams Construction Lineman Relationship Specialty Start Date End Date Pretty Mloina MD [address] [place] [address] PCP - General Family Medicine 12/24/20 documented as of this encounter
--- OUTSIDE RECORDS SUMMARY | 2024-08-29 10:00 | XMS_ITS | Encounter Summary ---
Author Organization [employer] Address 75 [facility] 7t [place] [address] Care Team Providers Care Wire Straightening Machine Operator Name Role Phone Pretty Molina MD Primary Care Provide r Reason for Visit * Reason Comments Med Refill Encounter Details Date Type Department Care Team (Late st Contact Info) Description 08/19/2024 Refill [facility] MEDICINE 230 [place], [place] [phone] Pretty Molina MD 230 [place], [place] [phone] Neuropathy Social History Tobacco Use Types Packs/Day [...] Description 09/11/2024 2:00 PM EDT Medication Management [address] [address] Guero Bursn, PharmD [address] [place] [address] 10/04/2024 1:00 PM EDT Clinical Support [address] [address] Sandra Boyd, TONY 10/10/2024 10:30 AM EDT Office Visit [address] [address] Pretty Molina MD [address] [place] [address] documented as of this encounter Visit Diagnoses Diagnosis Neuropathy Mononeuritis of unspecified site documented in this encounter Additional Health Concerns Assessment Noted Time PHQ-9 Depression Total Score: 4 01/06/20 24 2:22 PM EDT documented as of this encounter Care Teams Wire Straightening Machine Operator Relationship Specialty Start Date End Date Pretty Molina MD [address] [place] [address] PCP - General Family Medicine 12/24/20 documented as of this encounter
--- OUTSIDE RECORDS SUMMARY | 2024-08-29 10:00 | XMS_ITS | Encounter Summary ---
Author Organization [employer] Address 75 [facility] 7t [place] [address] Care Team Providers Care Commanding Officer Traffic Division Name Role Phone Pretty Molina MD Primary Care Provide r Reason for Visit * Reason Comments Med Refill Encounter Details Date Type Department Care Team (Late st Contact Info) Description 08/17/2024 Refill [facility] [address] [place] [address] Pretty Molina MD 230 [place] [address] Social History Tobacco Use Types Packs/Day Years [...] Description 09/11/2024 2:00 PM EDT Medication Management [address] [address] Guero Burns, PharmD [address] [place] [address] 10/04/2024 1:00 PM EDT Clinical Support [address] [address] Sandra Boyd, TONY 10/10/2024 10:30 AM EDT Office Visit [address] [address] Pretty Molina MD [address] [place] [address] documented as of this encounter Visit Diagnoses Not on filedocumented in this encounter Additional Health Concerns Assessment Noted Time PHQ-9 Depression Total Score: 4 01/06/20 24 2:22 PM EDT documented as of this encounter Care Teams Commanding Officer Traffic Division Relationship Specialty Start Date End Date Pretty Molina MD [address] [place] [address] PCP - General Family Medicine 12/24/20 documented as of this encounter
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
--- OUTSIDE RECORDS SUMMARY | 2024-08-29 10:00 | XMS_ITS | Encounter Summary ---
Author Organization [employer] Address 75 [facility] 7t [place] [address] Care Team Providers Care Floor Care Specialist Name Role Phone Pretty Molina MD Primary Care Provide r Reason for Visit * Reason Comments Med Refill Encounter Details Date Type Department Care Team (Late st Contact Info) Description 11/24/2022 Refill [facility] ADULT DENTAL [address] [place] [address] Eliezer Richardson DDS [address] [place] [address] Social History Tobacco Use Types Packs/Day Years [...] Description 09/11/2024 2:00 PM EDT Medication Management [address] [address] Guero Burns, PoloD [address] [place] [address] 10/04/2024 1:00 PM EDT Clinical Support [address] [phone] Sandra Boyd, TONY 10/10/2024 10:30 AM EDT Office Visit [address] [address] Pretty Molina MD [address] [place] [address] documented as of this encounter Visit Diagnoses Not on filedocumented in this encounter Additional Health Concerns Assessment Noted Time PHQ-9 Depression Total Score: 12 023 3:08 PM EDT documented as of this encounter Care Teams Floor Care Specialist Relationship Specialty Start Date End Date Pretty Molina MD [address] [place] [address] [phone] PCP - General Family Medicine 12/24/20 documented as of this encounter
--- OUTSIDE RECORDS SUMMARY | 2024-08-29 10:00 | XMS_ITS | Encounter Summary ---
Author Organization [employer] Address 75 [facility] 7t [place] [address] Care Team Providers Care Utility Agent Name Role Phone Pretty Molina MD Primary Care Provide r Reason for Visit * Reason Comments Med Refill Encounter Details Date Type Department Care Team (Late st Contact Info) Description 12/06/2023 Refill [facility] MEDICINE 230 [place], [place] [phone] Pretty Molina MD [address] [place], [place] [phone] Other chronic pain Social History Tobacco Use [...] Description 09/11/2024 2:00 PM EDT Medication Management [address] [address] Guero Burns, PharmD [address] [place] [address] 10/04/2024 1:00 PM EDT Clinical Support [address] [address] Sandra Boyd, TONY 10/10/2024 10:30 AM EDT Office Visit [address] [address] Pretty Molina MD [address] [place] [address] documented as of this encounter Visit Diagnoses Diagnosis Other chronic pain documented in this encounter Additional Health Concerns Assessment Noted Time PHQ-9 Depression Total Score: 12 023 3:08 PM EDT documented as of this encounter Care Teams Utility Agent Relationship Specialty Start Date End Date Pretty Molina MD [address] [place] [address] PCP - General Family Medicine 12/24/20 documented as of this encounter
--- OUTSIDE RECORDS SUMMARY | 2024-08-29 10:00 | XMS_ITS | Encounter Summary ---
Author Organization [employer] Address 75 [facility] 7t [place] [address] Care Team Providers Care College Scouting Coordinator Name Role Phone Pretty Molina MD Primary Care Provide r Encounter Details Date Type Department Care Team (Late st Contact Info) Description 11/12/2022 Orders Only [facility] [address] [place] [address] Jocelyn Fleming LPN Social History Tobacco Use [...] Description 09/11/2024 2:00 PM EDT Medication Management [address] [address] Guero Burns, PharmD 230 [place] [address] 10/04/2024 1:00 PM EDT Clinical Support [address] [address] Sandra Boyd RN 10/10/2024 10:30 AM EDT Office Visit [address] [address] Pretty Molina MD 230 [place], [place] [phone] documented as of this encounter Visit Diagnoses Not on filedocumented in this encounter Care Teams College Scouting Coordinator Relationship Specialty Start Date End Date Pretty Molina MD 230 [place] [address] PCP - General Family Medicine 12/24/20 documented as of this encounter
--- OUTSIDE RECORDS SUMMARY | 2024-08-29 10:00 | XMS_ITS | Encounter Summary ---
Author Organization [employer] Address 75 [facility] 7t [place] [address] Care Team Providers Care Tour Actor Name Role Phone Pretty Molina MD Primary Care Provide r Encounter Details Date Type Department Care Team ([facility] st Contact Info) Description 08/24/2024 Population Health Risk Score [facility] (C[facility]) Department [address] [phone] Provider, Population Health Generic Social History Tobacco Use Types Packs/Day Years [...] Description 09/11/2024 2:00 PM EDT Medication Management [address] [address] Guero Burns, PharmD [address] [place] [address] 10/04/2024 1:00 PM EDT Clinical Support [address] [address] Sandra Boyd, TONY 10/10/2024 10:30 AM EDT Office Visit [address] [address] Pretty Molina MD [address] [place] [address] documented as of this encounter Visit Diagnoses Not on filedocumented in this encounter Additional Health Concerns Assessment Noted Time PHQ-9 Depression Total Score: 4 01/06/20 24 2:22 PM EDT documented as of this encounter Care Teams Tour Actor Relationship Specialty Start Date End Date Pretty Molina MD [address] [place] [address] PCP - General Family Medicine 12/24/20 documented as of this encounter
--- OUTSIDE RECORDS SUMMARY | 2024-08-29 10:00 | XMS_ITS | Encounter Summary ---
Author Organization [employer] Address 75 [facility] 7t [place] [address] Care Team Providers Care Family Independence Case Manager Name Role Phone Pretty Molina MD Primary Care Provide r Reason for Visit * Reason Comments Med Refill Encounter Details Date Type Department Care Team (Late st Contact Info) Description 04/05/2024 Refill [facility] MEDICINE 230 [place], [place] [phone] Pretty Molina MD 230 [place] [address] Other chronic pain Social History Tobacco Use [...] Description 09/11/2024 2:00 PM EDT Medication Management [address] [address] Guero Burns, PharmD [address] [place] [address] 10/04/2024 1:00 PM EDT Clinical Support [address] [address] Sandra Boyd, RN 10/10/2024 10:30 AM EDT Office Visit [address] [address] Pretty Molina MD [address] [place] [address] documented as of this encounter Visit Diagnoses Diagnosis Other chronic pain documented in this encounter Additional Health Concerns Assessment Noted Time PHQ-9 Depression Total Score: 4 01/06/20 24 2:22 PM EDT documented as of this encounter Care Teams Family Independence Case Manager Relationship Specialty Start Date End Date Pretty Molina MD [address] [place] [address] PCP - General Family Medicine 12/24/20 documented as of this encounter
--- OUTSIDE RECORDS SUMMARY | 2024-08-29 10:00 | XMS_ITS | Encounter Summary ---
Author Organization [employer] Address 75 [facility] 7t [place] [address] Care Team Providers Care Senior National Account Manager Name Role Phone Pretty Molina MD Primary Care Provide r Reason for Visit * Reason Comments Med Refill Encounter Details Date Type Department Care Team (Late st Contact Info) Description 04/15/2024 Refill [facility] [address] [place] [address] Pretty Molina MD 230 [place] [address] Social History Tobacco Use Types Packs/Day Years [...] Description 09/11/2024 2:00 PM EDT Medication Management [address] [address] Guero Burns, PharmD [address] [place] [address] 10/04/2024 1:00 PM EDT Clinical Support [address] [address] Sandra Boyd, RN 10/10/2024 10:30 AM EDT Office Visit [address] [address] Pretty Molina MD [address] [place] [address] documented as of this encounter Visit Diagnoses Not on filedocumented in this encounter Additional Health Concerns Assessment Noted Time PHQ-9 Depression Total Score: 4 01/06/20 2:22 PM EDT documented as of this encounter Care Teams Senior National Account Manager Relationship Specialty Start Date End Date Pretty Molina MD [address] [place] [address] PCP - General Family Medicine 12/24/20 documented as of this encounter
--- OUTSIDE RECORDS SUMMARY | 2024-08-29 10:00 | XMS_ITS | Encounter Summary ---
Author Organization [employer] Address [address] [facility] 7t [place] [address] Care Team Providers Care Hotel Or Motel Cleaning Supervisor Name Role Phone Pretty Molina MD [...] Description 09/11/2024 2:00 PM EDT Medication Management [facility] [address] [place] [phone] Guero Burns, PharmD [address] [place] [address] 10/04/2024 1:00 PM EDT Clinical Support [address] [address] Sandra Boyd RN 10/10/2024 10:30 AM EDT Office Visit [address] [address] Pretty Molina MD [address] [place] [address] documented as of this encounter Procedures Procedure Name Priority Date/Time Associated Diagnosis Comments HEMATOXYLIN AND EOSIN STAIN Routine 08/16/2024 11:21 AM EST GLUCOSE, WHOLE BLOOD Routine 08/16/2024 10:29 AM EST LIPID PANEL, STANDARD Routine 08/16/2024 9:01 AM EST documented in this encounter Results * Hematoxylin and Eosin Stain (08/16/2024 11:21 AM EST) 08/16/2024 11:2 1 AM EST 08/16/2024 1:11 PM EST [facility] - 08/17/2024 4:59 PM EST ----- ------- Name: Violet Pascal ? Age/Sex: 64/F ? : 1960 Unit#: [id number] ?? Attend Dr: Ramesh Gurrola MD ?Re08/16/24 ?Status: DEP SDC ? Location: HO.SSS ?Disch: ? ----- ------- SPEC : [id number] ? RECD: 08/16/24 ? STATUS: ??SOUT ? REQ NUM: [id number] ? YASMINE: 08/16/24-1120 ? SUBM DR: Ramesh [...] microscopic examination, multiple pieces in cassette A. ??([facility]) Copies To: ?? Pretty Molina MD ?? [facility] ?? [address] ?? [place] [address] ?? [phone] ?? Ramesh Gurrola MD ?? [facility] ?? [address] ?? [place] [address] ?? [phone] ? CONTINUED ON NEXT PAGE ----- ------- Name: Violet Pascal ? Age/Sex: 64/F ? : 1960 Unit#: [id number] ?? Attend Dr: Ramesh Gurrola MD ?Re08/16/24 ?Status: DEP SDC ? Location: HO.SSS ?Disch: ? ----- ------- SPEC : [id number] ? RECD: 08/16/24 ? STATUS: ??SOUT ? REQ NUM: [id number] ? YASMINE: 08/16/24 ? SUBM DR: Ramesh Gurrola MD ? ENTERED: ??08/16/24 ?SP TYPE: Surgical ? OTHR DR: Pretty Molina MD ? ORDERED: ??HE Stain/2, Gross Micro L4 ? ----- ------- Signed (signature on file) Wally Harding MD 08/17/24 [id number] ? ----- ------- ? END OF REPORT ? us Generic External Data Provider LAB BLOOD ORDERAB LES Final Result Performing Organization Address City/[facility]/ZIP Co de Phone Number [facility] [address] [place] [address] [phone] * (ABNORMAL) Glucose, Whole Blood (08/16/2024 10:29 AM EST) Glucose, Whole Blood 150(H) 60 - 115 mg/dL [facility] Comment:METER #: [id number] 08/16/2024 10:2 9 AM EST 08/16/2024 10:33 AM EST Generic External Data Provider LAB BLOOD ORDERAB LES Final Result Performing Organization Address [facility]/ZIP Co de Phone Number [facility] [address] [place] [address] [phone] * Lipid Panel, Standard (08/16/2024 9:01 AM EST) Triglycerides 106 <150 mg/dL [facility] Comment:Desirable Triglyceri de: less than 150 mg/dLBorderline High Triglyceride 150-199 mg/dLHigh Triglyceride: 200-499 mg/dLVery High Triglyceride: greater than or equal to 5OO mg/dL Cholesterol 148 <200 mg/dL [facility] Comment:Desirable Cholestero l: less than 200 mg/dLBorderline High Cholesterol: 200-239 mg/dLHigh Cholesterol: greater than 239 mg/dL LDL Cholesterol Calculated 81 <100 mg/dL [facility] Comment:Desirable LDL: less than 100 mg/dLNear Optimal/Above Optimal LDL: 110- 129 mg/dLBorderline High LDL: 130-159 mg/dLHigh LDL: 160-189 mg/dLVery High LDL: greater than or equal to 190 mg/dL HDL Cholesterol 46 >40 mg/dL [facility] Comment:Desirable HDL: great er than 40 mg/dL Note: This HDL assay may give artificially low results in patients with liver disease. 08/16/2024 9:01 AM EST 08/16/2024 9:01 AM EST us Generic External Data Provider LAB BLOOD ORDERAB LES Final Result [facility] [address] [place] [phone] documented in this encounter Visit Diagnoses Not on filedocumented in this encounter Additional Health Concerns Assessment Noted Time PHQ-9 Depression Total Score: 4 01/06/20 24 2:22 PM EDT documented as of this encounter Care Teams Hotel Or Motel Cleaning Supervisor Relationship Specialty Start Date End Date Pretty Molina MD [address] [place] [address] PCP - General Family Medicine 12/24/20 documented as of this encounter
== END 2024-08-29 09:45 | disposition home or self-care (01) ==
LOC: HO.HWS 09:10
PROVIDERS: PCP Internal Medicine; Visit Provider Obstetrics & Gynecology
DX: R93.89 Abnormal findings on diagnostic imaging of other specified body structures (principal); D25.9 Leiomyoma of uterus, unspecified
CPT/HCPCS: 99213

== ENCOUNTER → 2024-08-29 09:10 | Outpatient (BNVA) | payer MEDICAID, SELFPAY | PROVIDERS: PCP Internal Medicine; Visit Provider Obstetrics & Gynecology | DX: D25.9 Leiomyoma of uterus, unspecified (principal); R93.89 Abnormal findings on diagnostic imaging of other specified body structures | CPT/HCPCS: 99212 ==

== ENCOUNTER 2024-09-20 13:22 | Outpatient (AMB) | payer MEDICAID, SELFPAY ==
--- NOTE | 2024-09-20 14:12 | MHC.OFFVIS ---
Intake Visit Reasons: 6 month FU Intake Note: Patient is present for a 6 month follow up Urology Medication:HYDROXYZINE, MYRBETRIQ Antibiotic Allergy:NONE Blood Thinner:NONE Outpatient Services Director Required: Yes Outpatient Services Director Language: Environmental Conflict Manager Name: Yonathan [phone] Allergies morphine (MORPHINE) Allergy (Unknown, Verified 12/04/24 13:09) UNKNOWN HPI Comments Details: 09/20/24--Violet is a 63 year old female who is here for FU for LUTS pelvic pain, urgency. The patient is a Cook Islander speaking female. Certified telecasting technician was present during the visit. She had previous cystoscopy hydrodistention 11/16/22, presenting with urinary frequency and nocturia. Past Medical history Fibromyalgia, Arthritis, Asthma, Back pain, Chronic vulvovaginitis. Continue Vistaril and Myrbetriq. FU 6 months. 03/22/24--Violet is a 64 year old female who is here for FU for LUTS pelvic pain, urgency. The patient is a [place]er speaking female. Certified telecasting technician was present during the visit. She had previous cystoscopy hydrodistention 11/16/22, presenting with urinary frequency and nocturia. 09/22/23--Violet is a 63 year old female who is here for FU for LUTS pelvic pain, urgency. The patient is a [place] speaking female. Certified telecasting technician was present during the visit. Past Medical history Fibromyalgia, Arthritis, Asthma, Back pain, Chronic vulvovaginitis. She had previous cystoscopy hydrodistention 11/16/22, she is prescribed Vistaril 50 mg at bedtime and Myrbetriq 50 mg q.a.m.. She states that she will occasionally still get flare-ups of bladder pressure. I have reviewed the importance of avoiding dietary bladder irritants. Urinalysis 1+ trace protein, Blood 25 Alverto, leuk - trace; bladder scan PVR 79 mL Plan continue Vistaril 50 mg and Myrbetriq 50 mg, IC diet. follow-up in 6 months. 05/23/2023-- Violet is a 63 year old female who is here for FU for LUTS pelvic pain, urgency. The patient is a [place] speaking female. Certified telecasting technician was present during the visit. Past Medical history Fibromyalgia, Arthritis, Asthma, Back pain, Chronic vulvovaginitis The patient underwent cystoscopy hydrodistension procedure on 11/16/22 for pelvic pain and microscopic hematuria. The patient complains of daytime urinary frequency every 2-3 hours, denies urinary incontinence, nocturia 2-3x, denies hematuria, has intermittent dysuria, feeling of incomplete bladder emptying/pressure. I have discussed avoiding dietary bladder irritants, including to cut back on caffeine usage. She states she stopped the oxybutynin 15 mg because it was not helping, was treated with vesicare in the past, she states the vistaril 25 mg is beneficial. I will increase the vistaril to 50 mg, disussed pyridium prn dysuria, Trial myrbetriq to replace oxybutynin. Review of Tests: Imaging/Labs/Results-- 11/16/22 --Cysto/hydrodistention--Cystoscopy findings-- bladder capacity post distention 875 milliliters. No glomerulations noted post distention. The patient stated that her bladder pain improved after the procedure 03/02/22--Renal US findings showed bilateral complex cyst. CAT scan results reviewed--05/10/2022- Suggestive of 7 mm complex cyst in the right kidney and bilateral simple cyst. There is no kidney stones. [facility] Medical History Subcutaneous mass Asymmetric septal hypertrophy Heart block atrioventricular Chronic pain Depression Vascular insufficiency Lichen Hip pain Foot pain Foot callus Cubital tunnel syndrome Chronic vulvovaginitis Carpal tunnel syndrome Burn scar contracture of upper arm Blurring of visual image Mood disorder Hyperlipidemia Renal cyst Hematuria of unknown cause Smoker Arthritis Back pain Diabetes GERD (gastroesophageal reflux disease) Fibromyalgia Anxiety and depression MARK on CPAP Chronic sinusitis Asthma Elevated cholesterol HTN (hypertension) Surgical History Hx of cystoscopy S/P lumpectomy of breast (04/20/21) Hx of colonoscopy Hx of dilation and curettage H/O tubal ligation History of skin graft Family History Father No problems noted. Mother No problems noted. 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 Female Reproductive History Menstrual Age of Menarche: 14 Review of Systems Const All systems reviewed & are unremarkable except as noted in HPI and below Reports no additional complaints Eyes Reports no additional complaints ENT Reports no additional complaints Card Reports no additional complaints Resp Reports no additional complaints GI Reports no additional complaints Reports as per HPI Musc Reports no additional complaints Skin/Breast Reports system reviewed and no additional complaints, except as documented Neuro Reports no additional complaints Psych Reports no additional complaints Endo Reports no additional complaints Isma/Lymph Reports no additional complaints Aller/Immun Reports no additional complaints Results Reviewed Results Reviewed: Date of Service: 03/29/24 EXAMINATION: US RETROPERITONEAL LIMITED (RENAL ONLY) CLINICAL INFORMATION: Frequency of micturition. COMPARISON: CT abdomen without and with contrast 05/10/2022. Renal ultrasound 03/10/2022 and 07/30/2021. TECHNIQUE: Real-time imaging of the kidneys. FINDINGS: RIGHT KIDNEY: 9.7 x 4.9 x 5.5 cm (SAG x AP x TRV). The kidney is normal in size, contour, and echogenicity. Renal cortical thickness is normal. No renal calculi or hydronephrosis. There is a right lower pole cortical exophytic 9 x 7 x 7 mm mass present, similar to the 03/02/2022 ultrasound. On the prior CT dated 05/10/2022, this can be seen and shows no enhancement. LEFT KIDNEY: 10.0 x 4.9 x 3.6 cm (SAG x AP x TRV). The kidney is normal in size, contour, and echogenicity. Renal cortical thickness is normal. No renal calculi or hydronephrosis. A benign lower pole 0.6 cm Bosniak class I renal cyst is noted which requires no additional imaging or follow up. No solid renal masses are seen. IMPRESSION: 1. A cause for the patient's urinary frequency has not been found. The bladder or prostate was not evaluated as this was not ordered. 2. Incidental note made of a 9 mm right lower pole cortical exophytic mass which is stable compared to the 03/02/2022 ultrasound and 05/10/2022 CT scan. This is a benign Bosniak class I or possibly II renal cyst which, in either case, requires no additional imaging or follow up. Assessment & Plan Assessment & Plan (1) Urinary frequency: Code(s): R35.0 - Frequency of micturition Category: Medical (2) Microscopic hematuria: Code(s): R31.29 - Other microscopic hematuria Category: Medical (3) Pelvic pain: Code(s): R10.2 - Pelvic and perineal pain Category: Medical (4) Renal cyst: Comment: bilateral Code(s): N28.1 - Cyst of kidney, acquired Category: Medical (5) Chronic interstitial cystitis: Code(s): N30.10 - Interstitial cystitis (chronic) without hematuria Category: Medical Plan Continue Vistaril and Myrbetriq. FU 6 months. Medications: Changed From hydroxyzine pamoate 25 - 50 mg PO BEDTIME PRN To hydroxyzine pamoate 25 - 50 mg (1 - 2 x 25 mg) PO BEDTIME 60 caps 3RF bladder discomfort, burning with urination Refilled mirabegron ER (Myrbetriq) 50 mg PO DAILY 90 tabs 3RF Patient Instructions: The patient had an opportunity to ask questions regarding treatment plan. The patient expressed understanding and agreement with the above treatment plan. The patient is aware they should contact our office by phone for worsening of their current condition or the appearance of new symptoms. Compliance is encouraged with any medications and followup testing that is ordered. It is a privilege to be allowed the opportunity to participate in the urologic care of your patient. If you have any questions or concerns regarding treatment for the above conditions please do not hesitate to contact me. The office telephone contact is [phone]. This note is constructed in part using voice recognition software. While every effort has been made to ensure accuracy sewer line photo inspector errors may have been included. Yours sincerely, Darian Bunn MD Coding Level of Care Code Est Pt Level 3 (02798) Complex EM visit Add On G2211 Diagnoses Urinary frequency R35.0 Microscopic hematuria R31.29 Pelvic pain R10.2 Renal cyst N28.1 Chronic interstitial cystitis N30.10
--- OUTSIDE RECORDS SUMMARY | 2024-09-20 16:08 | XMS_ITS | Encounter Summary ---
Author Organization [employer] Address [address] [facility] 7t [place] [address] Care Team Providers Care Retail Coordinator Name Role Phone Pretty Molina MD Primary Care Provide r Guero Burns PharmD Unavailable [phone] Encounter Details Date Type Department Care Team (Late st Contact Info) Description 09/01/2022 Orders Only [facility] [address] [place], [place] [phone] Jocelyn Fleming LPN Social History Tobacco Use [...] Team (Late st Contact Info) Description 10/04/2024 11:30 AM EDT Telemedicine [facility] [address] [place] [address] [phone] Guero Burns, PharmD [address] [place], [place] [phone] 10/10/2024 10:30 AM EDT Office Visit [facility] [address] [place] [address] Pretty Molina MD [address] [place] [address] 12/05/2024 2:00 PM EDT Clinical Support [facility] [address] [place], [place] [phone] Sandra Boyd, TONY documented as of this encounter Visit Diagnoses Not on filedocumented in this encounter Care Teams Retail Coordinator Relationship Specialty Start Date End Date Pretty Molina MD [address] [place] [address] [phone] PCP - General Family Medicine 12/24/20 Guero Burns, PoloD [address] [place] [phone] Pharmacist Internal Medicine 09/20/24 documented as of this encounter
--- OUTSIDE RECORDS SUMMARY | 2024-09-20 16:08 | XMS_ITS | Encounter Summary ---
Author Organization [employer] Address [address] [facility] 7t [place] [address] Care Team Providers Care City Detective Name Role Phone Pretty Molina MD Primary Care Provide r Guero Burns PharmD Unavailable [phone] Reason for Visit * Reason Comments Med Refill Encounter Details Date Type Department Care Team (Late st Contact Info) Description 02/28/[address] [facility] [address] [place] [address] Pretty Molina MD [address] [place] [address] Social History Tobacco Use Types Packs/Day Years [...] Info) Description 10/04/2024 11:30 AM EDT Telemedicine [facility] [address] [place], [place] [phone] Guero Burns, PharmD [address] [place] [address] 10/10/2024 10:30 AM EDT Office Visit [address] [address] Pretty Molina MD [address] [place] [address] 12/05/2024 2:00 PM EDT Clinical Support [address] [address] Sandra Boyd, TONY documented as of this encounter Visit Diagnoses Not on filedocumented in this encounter Additional Health Concerns Assessment Noted Time PHQ-9 Depression Total Score: 12 023 3:08 PM EDT documented as of this encounter Care Teams City Detective Relationship Specialty Start Date End Date Pretty Molina MD [address] [place] [phone] PCP - General Family Medicine 12/24/20 Guero Burns, PoloD [address] [place] [address] [phone] Pharmacist Internal Medicine 09/20/24 documented as of this encounter
--- OUTSIDE RECORDS SUMMARY | 2024-09-20 16:08 | XMS_ITS | Encounter Summary ---
Author Organization [employer] Address [address] [facility] 7t [place] [address] Care Team Providers Care Tire Shop Manager Name Role Phone Pretty Molina MD Primary Care Provide r Guero Burns PharmD Unavailable [phone] Encounter Details Date Type Department Care Team (Latest Contact Info) Description 05/31/2019 Abstract [facility] CONVERSIONS Dental, Provider, DDS Social History [...] Info) Description 10/04/2024 11:30 AM EDT Telemedicine [address] [address] Guero Burns, PharmD [address] [place] [address] 10/10/2024 10:30 AM EDT Office Visit [address] [address] Pretty Molina MD [address] [place] [address] 12/05/2024 2:00 PM EDT Clinical Support [address] [address] Sandra Boyd, RN documented as of this encounter Visit Diagnoses Not on filedocumented in this encounter Care Teams Tire Shop Manager Relationship Specialty Start Date End Date Pretty Molina MD [address] [place] [address] PCP - General Family Medicine 12/24/20 Guero Burns, PoloD [address] [place] [address] Pharmacist Internal Medicine 09/20/24 documented as of this encounter
--- OUTSIDE RECORDS SUMMARY | 2024-09-20 16:08 | XMS_ITS | Encounter Summary ---
Author Organization [employer] Address [address] [facility] 7t [place] [address] Care Team Providers Care Greaser Operator Name Role Phone Pretty Molina MD Primary Care Provide r Guero Burns PharmD Unavailable [phone] Reason for Visit * Reason Comments Med Refill Encounter Details Date Type Department Care Team ([facility] st Contact Info) Description 05/12/[address] [facility] [address] [place] [address] Pretty Molina MD [address] [place] [address] Neuropathy Social History Tobacco Use Types Packs/Day [...] Info) Description 10/04/2024 11:30 AM EDT Telemedicine [address] [address] Guero Burns PharmD [address] [place] [phone] 10/10/2024 10:30 AM EDT Office Visit [address] [address] Pretty Molina MD [address] [place] [address] 12/05/2024 2:00 PM EDT Clinical Support [address] [address] Sandra Boyd RN documented as of this encounter Visit Diagnoses Diagnosis Neuropathy Mononeuritis of unspecified site documented in this encounter Additional Health Concerns Assessment Noted Time PHQ-9 Depression Total Score: 12 023 3:08 PM EDT documented as of this encounter Care Teams Greaser Operator Relationship Specialty Start Date End Date Pretty Molina MD [address] [place] [phone] PCP - General Family Medicine 12/24/20 Guero Burns, PoloD [address] [place] [phone] Pharmacist Internal Medicine 09/20/24 documented as of this encounter
--- OUTSIDE RECORDS SUMMARY | 2024-09-20 16:08 | XMS_ITS | Encounter Summary ---
Author Organization [employer] Address [address] [facility] 7t [place] [address] Care Team Providers Care Vice President Medical Affairs Name Role Phone Pretty Molina MD Primary Care Provide r Guero Burns PharmD Unavailable [phone] Reason for Visit * Reason Comments Med Refill Encounter Details Date Type Department Care Team (Late st Contact Info) Description 05/09/[address] [facility] [address] [place] [address] Pretty Molina MD [address] [place], [place] [phone] Other chronic pain Social History Tobacco Use [...] Info) Description 10/04/2024 11:30 AM EDT Telemedicine [address] [address] Guero Burns, Mario [address] [place] [phone] 10/10/2024 10:30 AM EDT Office Visit [address] [address] Pretty Molina MD [address] [place] [address] 12/05/2024 2:00 PM EDT Clinical Support [address] [address] Sandra Boyd RN documented as of this encounter Visit Diagnoses Diagnosis Other chronic pain documented in this encounter Additional Health Concerns Assessment Noted Time PHQ-9 Depression Total Score: 12 023 3:08 PM EDT documented as of this encounter Care Teams Vice President Medical Affairs Relationship Specialty Start Date End Date Pretty Molina MD [address] [place] [address] PCP - General Family Medicine 12/24/20 Guero Burns, PharmD [address] [place] [address] Pharmacist Internal Medicine 09/20/24 documented as of this encounter
--- OUTSIDE RECORDS SUMMARY | 2024-09-20 16:08 | XMS_ITS | Encounter Summary ---
Author Organization [employer] Address [address] [facility] 7t [place] [address] Care Team Providers Care Mainframe Systems Engineer Name Role Phone Pretty Molina MD Primary Care Provide r Guero Burns PharmD Unavailable [phone] Reason for Visit * Reason Comments Med Refill Encounter Details Date Type Department Care Team ([facility] st Contact Info) Description 03/23/2023 Refill [facility] MED & PEDS [address] [place] [address] Pretty Molina MD [address] [place] [address] Neuropathy Social History Tobacco Use Types Packs/Day [...] Info) Description 10/04/2024 11:30 AM EDT Telemedicine [address] [address] Guero Burns PharmD [address] [place] [phone] 10/10/2024 10:30 AM EDT Office Visit [address] [address] Pretty Molina MD [address] [place] [address] 12/05/2024 2:00 PM EDT Clinical Support [address] [address] Sandra Boyd RN documented as of this encounter Visit Diagnoses Diagnosis Neuropathy Mononeuritis of unspecified site documented in this encounter Additional Health Concerns Assessment Noted Time PHQ-9 Depression Total Score: 12 023 3:08 PM EDT documented as of this encounter Care Teams Mainframe Systems Engineer Relationship Specialty Start Date End Date Pretty Molina MD [address] [place] [phone] PCP - General Family Medicine 12/24/20 Guero Burns, PoloD [address] [place] [phone] Pharmacist Internal Medicine 09/20/24 documented as of this encounter
--- OUTSIDE RECORDS SUMMARY | 2024-09-20 16:08 | XMS_ITS | Encounter Summary ---
Author Organization [employer] Address [address] [facility] 7t [place] [address] Care Team Providers Care Tactical Air Control Party Manager Name Role Phone Pretty Molina MD Primary Care Provide r Guero Burns PharmD Unavailable Reason for Visit * Reason Comments Med Refill Encounter Details Date Type Department Care Team (Late st Contact Info) Description 05/10/2023 Refill [facility] MEDICINE [address] [place] [address] Pretty Molina MD [address] [place], [place] [phone] Other chronic pain Social History Tobacco Use [...] Info) Description 10/04/2024 11:30 AM EDT Telemedicine [address] [address] Guero Burns, Mario [address] [place] [address] 10/10/2024 10:30 AM EDT Office Visit [address] [address] Pretty Molina MD [address] [place] [address] 12/05/2024 2:00 PM EDT Clinical Support [address] [address] Sandra Boyd RN documented as of this encounter Visit Diagnoses Diagnosis Other chronic pain documented in this encounter Additional Health Concerns Assessment Noted Time PHQ-9 Depression Total Score: 12 023 3:08 PM EDT documented as of this encounter Care Teams Tactical Air Control Party Manager Relationship Specialty Start Date End Date Pretty Molina MD [address] [place] [address] PCP - General Family Medicine 12/24/20 Guero Burns, PharmD [address] [place] [phone] Pharmacist Internal Medicine 09/20/24 documented as of this encounter
--- OUTSIDE RECORDS SUMMARY | 2024-09-20 16:08 | XMS_ITS | Encounter Summary ---
Author Organization [employer] Address [address] [facility] 7t [place] [address] Care Team Providers Care Black Top Spreader Machine Operator Name Role Phone Pretty Molina MD Primary Care Provide r Guero Burns PharmD Unavailable [phone] Reason for Visit * Reason Comments Med Refill Encounter Details Date Type Department Care Team ([facility] st Contact Info) Description 06/06/2024 Refill [facility] CHC MED & PEDS [address] [place] [address] Pretty Molina MD [address] [place] [address] Type 2 diabetes mellitus with hyperglycemia, without long-term current use of insulin ([facility]) Social History Tobacco Use [...] Info) Description 10/04/2024 11:30 AM EDT Telemedicine [address] [address] Guero Burns, PoloD [address] [place] [address] 10/10/2024 10:30 AM EDT Office Visit [address] [address] Pretty Molina MD [address] [place] [address] 12/05/2024 2:00 PM EDT Clinical Support [address] [address] Sandra Boyd RN documented as of this encounter Visit Diagnoses Diagnosis Type 2 diabetes mellitus with hyperglycemia, without long-term current use of insulin ([facility]) documented in this encounter Additional Health Concerns Assessment Noted Time PHQ-9 Depression Total Score: 4 01/06/20 2:22 PM EDT documented as of this encounter Care Teams Black Top Spreader Machine Operator Relationship Specialty Start Date End Date Pretty Molina MD [address] [place], [place] [phone] PCP - General Family Medicine 12/24/20 Guero Burns, PoloD [address] [place] [address] Pharmacist Internal Medicine 09/20/24 documented as of this encounter
--- OUTSIDE RECORDS SUMMARY | 2024-09-20 16:08 | XMS_ITS | Encounter Summary ---
Author Organization [employer] Address 75 [facility] 7t [place] [address] Care Team Providers Care Adhesive Bandage Machine Operator Name Role Phone Pretty Molina MD Primary Care Provide r Guero Burns PharmD Unavailable [phone] Reason for Visit * Reason Onset Date Comments Med Refill 06/10/2022 Encounter Details Date Type Department Care Team (Late st Contact Info) Description 06/10/2022 Refill [facility] MEDICINE [address] [place] [address] Pretty Molina MD 230 [place] [address] Social History Tobacco Use Types Packs/Day Years [...] Info) Description 10/04/2024 11:30 AM EDT Telemedicine [address] [address] Guero Burns, Mario [address] [place] [address] 10/10/2024 10:30 AM EDT Office Visit [address] [address] Pretty Molina MD [address] [place] [address] 12/05/2024 2:00 PM EDT Clinical Support [address] [address] Sandra Boyd RN documented as of this encounter Visit Diagnoses Not on filedocumented in this encounter Care Teams Adhesive Bandage Machine Operator Relationship Specialty Start Date End Date Pretty Molina MD [address] [place] [address] PCP - General Family Medicine 12/24/20 Guero Burns, PharmD [address] [place] [address] Pharmacist Internal Medicine 09/20/24 documented as of this encounter
--- OUTSIDE RECORDS SUMMARY | 2024-09-20 16:08 | XMS_ITS | Encounter Summary ---
Author Organization [employer] Address 75 [facility] 7t [place] [address] Care Team Providers Care Road Marker Name Role Phone Pretty Molina MD Primary Care Provide r Guero Burns PharmD Unavailable [phone] Reason for Visit * Reason Comments Med Refill Encounter Details Date Type Department Care Team (Late st Contact Info) Description 05/02/2023 Refill [facility] MEDICINE 230 [place] [address] Jocelyn Bender DO 230 [place] [address] Seasonal allergic rhinitis, unspecified trigger Social History [...] Info) Description 10/04/2024 11:30 AM EDT Telemedicine [address] [address] Guero Burns, Mario [address] [place] [address] 10/10/2024 10:30 AM EDT Office Visit [address] [address] Pretty Molina MD [address] [place] [address] 12/05/2024 2:00 PM EDT Clinical Support [address] [address] Sandra Boyd RN documented as of this encounter Visit Diagnoses Diagnosis Seasonal allergic rhinitis, unspecified trigger documented in this encounter Additional Health Concerns Assessment Noted Time PHQ-9 Depression Total Score: 12 023 3:08 PM EDT documented as of this encounter Care Teams Road Marker Relationship Specialty Start Date End Date Pretty Molina MD [address] [place] [address] PCP - General Family Medicine 12/24/20 Guero Burns, PoloD [address] [place] [address] Pharmacist Internal Medicine 09/20/24 documented as of this encounter
--- OUTSIDE RECORDS SUMMARY | 2024-09-20 16:08 | XMS_ITS | Encounter Summary ---
Author Organization [employer] Address 75 [facility] 7t [place] [address] Care Team Providers Care Cafeteria Worker Name Role Phone Pretty Molina MD Primary Care Provide r Guero Burns PharmD Unavailable [phone] Encounter Details Date Type Department Care Team (Late st Contact Info) Description 07/01/2022 Orders Only [facility] MEDICINE [address] [place] [phone] Marti Cedillo RN Chronically on opiate therapy [...] Info) Description 10/04/2024 11:30 AM EDT Telemedicine [facility] MEDICINE [address] [place] [address] Guero Burns, PharmD [address] [place] [address] 10/10/2024 10:30 AM EDT Office Visit [facility] MEDICINE [address] [place] [address] Pretty Molina MD [address] [place], [place] [phone] 12/05/2024 2:00 PM EDT Clinical Support [facility] MEDICINE 230 [place] [address] Sandra Boyd RN documented as of this encounter Visit Diagnoses Diagnosis Chronically on opiate therapy- Primary documented in this encounter Care Teams Cafeteria Worker Relationship Specialty Start Date End Date Pretty Molina MD [address] [place] [address] PCP - General Family Medicine 12/24/20 Guero Burns, PoloD [address] [place] [address] Pharmacist Internal Medicine 09/20/24 documented as of this encounter
--- OUTSIDE RECORDS SUMMARY | 2024-09-20 16:08 | XMS_ITS | Encounter Summary ---
Author Organization [employer] Address 75 [facility] 7t [place] [address] Care Team Providers Care Chemical Tank Worker Name Role Phone Pretty Molina MD Primary Care Provide r Guero Burns PharmD Unavailable [phone] Reason for Visit * Reason Comments Med Refill Encounter Details Date Type Department Care Team (Late st Contact Info) Description 03/30/2023 Refill [facility] MEDICINE [address] [place] [address] Pretty Molina MD 230 [place] [address] Other chronic pain Social History Tobacco Use [...] Info) Description 10/04/2024 11:30 AM EDT Telemedicine [address] [address] Guero Burns, Mario [address] [place] [address] 10/10/2024 10:30 AM EDT Office Visit [address] [address] Pretty Molina MD [address] [place] [address] 12/05/2024 2:00 PM EDT Clinical Support [address] [address] Sandra Boyd RN documented as of this encounter Visit Diagnoses Diagnosis Other chronic pain documented in this encounter Additional Health Concerns Assessment Noted Time PHQ-9 Depression Total Score: 12 023 3:08 PM EDT documented as of this encounter Care Teams Chemical Tank Worker Relationship Specialty Start Date End Date Pretty Molina MD [address] [place] [address] PCP - General Family Medicine 12/24/20 Guero Burns, PharmD [address] [place] [address] Pharmacist Internal Medicine 09/20/24 documented as of this encounter
--- OUTSIDE RECORDS SUMMARY | 2024-09-20 16:08 | XMS_ITS | Encounter Summary ---
Author Organization [employer] Address 75 [facility] 7t [place] [address] Care Team Providers Care Motorcycle Assembler Name Role Phone Pretty Molina MD Primary Care Provide r Guero Burns PharmD Unavailable [phone] Reason for Visit * Reason Comments Med Refill Encounter Details Date Type Department Care Team (Late st Contact Info) Description 07/05/2023 Refill [facility] CHC MED & PEDS [address] [place] [address] Pretty Molina MD 230 [place] [address] Social History Tobacco Use Types Packs/Day Years [...] Info) Description 10/04/2024 11:30 AM EDT Telemedicine [address] [address] Guero Burns, Mario [address] [place] [address] 10/10/2024 10:30 AM EDT Office Visit [address] [address] Pretty Molina MD [address] [place] [address] 12/05/2024 2:00 PM EDT Clinical Support [address] [address] Sandra Boyd RN documented as of this encounter Visit Diagnoses Not on filedocumented in this encounter Additional Health Concerns Assessment Noted Time PHQ-9 Depression Total Score: 12 023 3:08 PM EDT documented as of this encounter Care Teams Motorcycle Assembler Relationship Specialty Start Date End Date Pretty Molina MD [address] [place] [address] PCP - General Family Medicine 12/24/20 Guero Burns, PharmD [address] [place] [phone] Pharmacist Internal Medicine 09/20/24 documented as of this encounter
--- OUTSIDE RECORDS SUMMARY | 2024-09-20 16:08 | XMS_ITS | Encounter Summary ---
Author Organization [employer] Address 75 [facility] 7t [place] [address] Care Team Providers Care Dean Of Men Name Role Phone Pretty Molina MD Primary Care Provide r Guero Burns PharmD Unavailable [phone] Reason for Visit * Reason Comments Med Refill Encounter Details Date Type Department Care Team (Late st Contact Info) Description 07/01/2024 Refill [facility] MEDICINE 230 [place] [address] Keysha Nagel, YOLETTE [address] [place] [address] Social History Tobacco Use Types Packs/Day Years [...] Info) Description 10/04/2024 11:30 AM EDT Telemedicine [address] [address] Guero Burns, PharmD [address] [place] [address] 10/10/2024 10:30 AM EDT Office Visit [address] [address] Pretty Molina MD [address] [place] [address] 12/05/2024 2:00 PM EDT Clinical Support [address] [address] Sandra Boyd RN documented as of this encounter Visit Diagnoses Not on filedocumented in this encounter Additional Health Concerns Assessment Noted Time PHQ-9 Depression Total Score: 4 01/06/20 24 2:22 PM EDT documented as of this encounter Care Teams Dean Of Men Relationship Specialty Start Date End Date Pretty Molina MD [address] [place] [address] PCP - General Family Medicine 12/24/20 Guero Burns, PoloD [address] [place] [address] Pharmacist Internal Medicine 09/20/24 documented as of this encounter
--- OUTSIDE RECORDS SUMMARY | 2024-09-20 16:08 | XMS_ITS | Encounter Summary ---
Author Organization [employer] Address 75 [facility] 7t [place] [address] Care Team Providers Care Record Keeper Name Role Phone Pretty Molina MD Primary Care Provide r Guero Burns PharmD Unavailable [phone] Encounter Details Date Type Department Care Team (Latest Contact Info) Description 2019 Abstract [facility] CONVERSIONS Dental, Provider, DDS Social History [...] Info) Description 10/04/2024 11:30 AM EDT Telemedicine [address] [address] Guero Burns, PharmD 230 [place] [address] 10/10/2024 10:30 AM EDT Office Visit [address] [address] Pretty Molina MD [address] [place] [address] 12/05/2024 2:00 PM EDT Clinical Support [address] [address] Sandra Boyd, RN documented as of this encounter Visit Diagnoses Not on filedocumented in this encounter Care Teams Record Keeper Relationship Specialty Start Date End Date Pretty Molina MD [address] [place] [address] PCP - General Family Medicine 12/24/20 Guero Burns, PoloD [address] [place] [address] Pharmacist Internal Medicine 09/20/24 documented as of this encounter
--- OUTSIDE RECORDS SUMMARY | 2024-09-20 16:08 | XMS_ITS | Encounter Summary ---
Author Organization [employer] Address 75 [facility] 7t [place] [address] Care Team Providers Care Rn Orthopaedic Name Role Phone Pretty Molina MD Primary Care Provide r Guero Burns PharmD Unavailable [phone] Encounter Details Date Type Department Care Team (Latest Contact Info) Description 04/21/2020 Abstract [facility] CONVERSIONS Dental, Provider, DDS Social History [...] Info) Description 10/04/2024 11:30 AM EDT Telemedicine [facility] MEDICINE [address] [place] [address] Guero Burns, PharmD 230 [place] [address] 10/10/2024 10:30 AM EDT Office Visit [address] [address] Pretty Molina MD [address] [place] [address] 12/05/2024 2:00 PM EDT Clinical Support [address] [address] Sandra Boyd, RN documented as of this encounter Visit Diagnoses Not on filedocumented in this encounter Care Teams Rn Orthopaedic Relationship Specialty Start Date End Date Pretty Molina MD [address] [place] [address] PCP - General Family Medicine 12/24/20 Guero Burns, PoloD [address] [place] [address] Pharmacist Internal Medicine 09/20/24 documented as of this encounter
--- OUTSIDE RECORDS SUMMARY | 2024-09-20 16:08 | XMS_ITS | Encounter Summary ---
Author Organization [employer] Address 75 [facility] 7t [place] [address] Care Team Providers Care Claims Customer Service Representative Name Role Phone Pretty Molina MD Primary Care Provide r Guero Burns PharmD Unavailable [phone] Reason for Visit * Reason Comments Med Refill Encounter Details Date Type Department Care Team (Late st Contact Info) Description 06/11/2022 Refill [facility] MEDICINE 230 [place] [address] Yasmine Hernandez MD [address] [place] [address] Chronic pain syndrome Social History Tobacco Use [...] Cedillo RN - 06/15/2022 10:45 AM EST Inclusion Specialist ck 06/15/22. documented in this encounter Plan of Treatment Upcoming Encounters Date Type Department Care Team (Late st Contact Info) Description 10/04/2024 11:30 AM EDT Telemedicine [facility] MEDICINE [address] [place] [address] Guero Burns, PharmD [address] [place] [address] 10/10/2024 10:30 AM EDT Office Visit [address] [address] Pretty Molina MD [address] [place] [address] 12/05/2024 2:00 PM EDT Clinical Support [address] [address] Sandra Boyd RN documented as of this encounter Visit Diagnoses Diagnosis Chronic pain syndrome documented in this encounter Care Teams Claims Customer Service Representative Relationship Specialty Start Date End Date Pretty Molina MD [address] [place] [address] PCP - General Family Medicine 12/24/20 Guero Burns, PharmD [address] [place] [address] Pharmacist Internal Medicine 09/20/24 documented as of this encounter
--- OUTSIDE RECORDS SUMMARY | 2024-09-20 16:08 | XMS_ITS | Encounter Summary ---
Author Organization [employer] Address 75 [facility] 7t [place] [address] Care Team Providers Care Community Leader Name Role Phone Pretty Molina MD Primary Care Provide r Guero Burns PharmD Unavailable [phone] Encounter Details Date Type Department Care Team (Late st Contact Info) Description 07/12/2022 Orders Only [facility] CHC MED & PEDS [address] [place], [place] [phone] Jocelyn Fleming LPN Social History Tobacco Use [...] Info) Description 10/04/2024 11:30 AM EDT Telemedicine [facility] MEDICINE [address] [place] [address] Guero Burns, PharmD [address] [place] [address] 10/10/2024 10:30 AM EDT Office Visit [facility] MEDICINE [address] [place] [address] Pretty Molina MD [address] [place], [place] [phone] 12/05/2024 2:00 PM EDT Clinical Support [facility] MEDICINE [address] [place] [address] Sandra Boyd, TONY documented as of this encounter Visit Diagnoses Not on filedocumented in this encounter Care Teams Community Leader Relationship Specialty Start Date End Date Pretty Molina MD [address] [place] [address] PCP - General Family Medicine 12/24/20 Guero Burns, PoloD [address] [place] [address] Pharmacist Internal Medicine 09/20/24 documented as of this encounter
--- OUTSIDE RECORDS SUMMARY | 2024-09-20 16:09 | XMS_ITS | Encounter Summary ---
Author Organization [employer] Address [address] [facility] 7t [place] [address] Care Team Providers Care Partition Notcher Name Role Phone Pretty Molina MD Primary Care Provide r Reason for Visit * Consultation (Routine) - Authorized Specialty Diagnoses / Procedures Referred By Contac t Referred To Contact Pharmacy Diagnoses Tobacco dependence Pretty Molina MD [address] [place] [address] Phone: tel: fax: Referral ID Status Reason Start Date Expiration Date Visits Requested Visits Authorized [id number] Authorized Consult and Treat 06/11/2024 06/11/2025 6 6 Encounter Details Date Type Department Care Team (Late st Contact Info) Description 09/17/2024 1:30 PM EDT Telemedicine [facility] [address] [place] [address] Guero Burns, PharmD [address] [place] [address] Tobacco dependence (Primary Dx) Social History Tobacco Use Types Packs/Day Years Used Date Smoking Tobacco: Every Day Cigarettes 0.8 35.3 Started: 1989 Passive Smoke Exposure: Current Smokeless Tobacco: Never Comments:Currently smokes 1/ 3 PPD. Been a smoker for 35 years, has smoked up to 1 ppd. Alcohol Use Standard Drinks/Week Comments Not Currently [...] as of this encounter Progress Notes * Guero Burns PharmD - 09/17/2024 1:30 PM EDT Pharmacy Consult Visit Type: CDTM Pharmacist: Guero Burns PharmD Referring Provider: Peace Referral Dx: F17.200 (ICD-10-CM) - Tobacco dependence Date Referred: 06/11/2024 Visit #: 2 Violet Pascal is a 64 y.o. year old patient here for follow-up visit completed over the phone. Subjective History: General / Intake (updated 09/17/2024) Allergies: is allergic to morphine. Read/Write: Yes, in [place] (somewhat) Recent Hospitalizations: No Social History as reported by patient: Tobacco: Current See smoking cessation Alcohol: Denies (quit 14 years ago) Caffeine: Current, 1/2 cup daily of coffee Illicit drugs: Denies Exercise: not at all Adherence / patient self-management Uses medboxes from [facility] pharmacy [facility] assistance from [facility] with managing medications Reports satisfaction with medboxes Denies missed doses or removing medication OTC medication, vitamin, supplement use: denies Smoking cessation Past Medical History: Negative for: seizure disorder, chest pain, eating disorder, suicidal ideation, neuropsychiatric disorder. Positive for depression Smoking History Reports smoking 1/3 ppd for 35 years. (Previously smoked up to 1 ppd) First cigarette within 30 minutes of waking. Denies smoking in the home, awaking at night to smoke. Endorses triggers such as coffee, stress, smokes alone - boredom/routine is trigger. Past Quit Attempts Endorses 3 previous quit attempts, most recent quit attempt was in 1999 (25 years ago), longest quit attempt lasted 7 months (1999) Tried nicotine patches, nicotine lozenges, nicotine gum, and varenicline to quit previously Patches: Skin Allergy (rash/skin irritation) Gum: stomach ache and nausea Chantix: 2020, ineffective Lozenge: used solo, tolerated well. Current Quit Attempt Motivational factors for cessation: Does not like the smell of cigarette smoke, does not want to have to step out or leave social gatherings to smoke, health Barriers to cessation: under a lot of stress now and depressive episodes Patient confirms following with a counselor and psychiatrist. Patient declares readiness to quit is a 9 out of 10 Patient set a quit date for 09/12/2024 Started NRT 09/12/2024: Reports smoking 2-3 cigarettes daily (1/2 of previous daily consumption) Cigarette with coffee is hardest to eliminate, has reduced coffee intake to once or twice daily. First cigarette now 2-3 hours [address] patch in the AM takes off before bed. Denies rash or AMANDA. Reports use of Nicotine lozenges about twice daily. Objective History: Treatment history/considerations: PMH: Tobacco Dependence, Depression, Type 2 DM, dyslipidemia, HTN, diabetic nephropathy, asthma, morbid obesity, fibromyalgia, carpal tunnel syndrome Recent labs: Albumin/creatinine ratio: 1,040 mcg/mg Cr on 07/20/2021 Renal function (07/20/2024): eGFR: >60 mL/min/1.73 m2 SCr = 0.75 mg/dL CrCl (AdjBW)= 82 mL/min Vit B12 (if on metformin): No record Metformin package insert recommends monitoring every 2-3 yrs. Lab Results Component Value Date ALT 17 01/10/2024 AST 21 01/10/2024 LDLCHOLCAL 81 08/16/2024 TRIG 106 08/16/2024 K 4.2 07/20/2024 NA 137 07/20/2024 CREATININE 0.75 07/20/2024 EGFR >60 07/20/2024 HGBA1C 6.9 (A) 04/05/2024 HGBA1C 6.5 (A) 01/06/2024 HGBA1C 6.3 (A) 05/30/2023 Recent blood pressure readings: BP Readings from Last 4 Encounters: 06/11/24 (!) 157/85 04/27/24 (!) 152/86 04/19/24 132/82 04/05/24 (!) 166/78 Pulse Readings from Last 4 Encounters: 06/11/24 77 04/27/24 66 04/19/24 71 04/05/24 68 Immunizations Due: COVID-19 and PCV20 Unable to offer during televisit, will offer at next visit. Preferred Pharmacy: [facility] [address] [facility] 230 [facility] [id number] Assessment/Plan: Smoking Cessation (Stage: Action) Pharmacotherapy: Nicotine 14 mg patch, apply 1 patch daily as directed x6 wks (starting dose) Nicotine 4 mg gum/lozenge use 1 as directed every 1-2 hours PRN cravings (combo therapy) Goals of therapy per the [facility] Treating Tobacco Use and Dependence Clinical Practice Guideline: Achieve cessation via pharmacologic & non-pharmacologic intervention Plan: NRT has been somewhat effective, pharmacist recommends more frequent use of nicotine lozenge PRN toavoid cigarette smoking. Recommend keeping patch and lozenge at bedside for placement and consumption immediately upon awakening to assist with morning cravings. Recommend dissolving a lozenge before anticipated coffee or meals to help prevent cigarette cravings. Patient encouraged to discuss cessation attempt with counselor to assist with stress management techniques. Pharmacist previously recommended LDCT Lung cancer screening. Request sent to [place] 09/11/2024. Patient to follow up in CDTM in 2 weeks for ongoing support. Education: Use of nicotine patch (can remove prior to bed, rotate site, remove prior to MRI or other imaging). Use of nicotine lozenge (dissolve over 20-30 mins, avoid food/drink for 15 mins prior, max 20 per day). Counseling provided on risks of concomitant tobacco & NRT use, patient confirmed understanding. documented in this encounter Plan of Treatment Upcoming Encounters Date Type Department Care Team (Late st Contact Info) Description 10/04/2024 11:30 AM EDT Telemedicine [facility] [address] [place] [address] Guero Burns PharmD [address] [place] [address] 10/10/2024 10:30 AM EDT Office Visit [facility] [address] [place] [address] Pretty Molina MD [address] [place] [address] 12/05/2024 2:00 PM EDT Clinical Support [facility] [address] [place] [address] Sandra Boyd RN documented as of this encounter Visit Diagnoses Diagnosis Tobacco dependence- Primary Tobacco use disorder documented in this encounter Additional Health Concerns Assessment Noted Time PHQ-9 Depression Total Score: 4 01/06/20 24 2:22 PM EDT documented as of this encounter Care Teams Partition Notcher Relationship Specialty Start Date End Date Pretty Molina MD [address] [place] [address] PCP - General Family Medicine 12/24/20 documented as of this encounter
--- OUTSIDE RECORDS SUMMARY | 2024-09-20 16:09 | XMS_ITS | Encounter Summary ---
Author Organization [employer] Address [address] [facility] 7t [place] [address] Care Team Providers Care Machine Riveter Name Role Phone Pretty Molina MD Primary Care Provide r Gueor Burns PharmD Unavailable Reason for Visit * Reason Comments Med Refill Encounter Details Date Type Department Care Team (Late st Contact Info) Description 04/05/2024 Refill [facility] [address] [place] [address] Pretty Molina MD [address] [place] [address] Other chronic pain Social History Tobacco Use [...] Description 10/04/2024 11:30 AM EDT Telemedicine [address] [address] Guero Burns, PharmD [address] [place] [address] 10/10/2024 10:30 AM EDT Office Visit [address] [address] Pretty Molina MD [address] [place] [address] 12/05/2024 2:00 PM EDT Clinical Support [address] [address] Sandra Boyd RN documented as of this encounter Visit Diagnoses Diagnosis Other chronic pain documented in this encounter Additional Health Concerns Assessment Noted Time PHQ-9 Depression Total Score: 4 01/06/20 24 2:22 PM EDT documented as of this encounter Care Teams Machine Riveter Relationship Specialty Start Date End Date Pretty Molina MD [address] [place] [address] PCP - General Family Medicine 12/24/20 Guero Burns, PoloD [address] [place] [address] Pharmacist Internal Medicine 09/20/24 documented as of this encounter
--- OUTSIDE RECORDS SUMMARY | 2024-09-20 16:09 | XMS_ITS | Encounter Summary ---
Author Organization [employer] Address [address] [facility] 7t [place] [address] Care Team Providers Care Blender / Cook Name Role Phone rPetty Molina MD Primary Care Provide r Guero Burns PharmD Unavailable [phone] Reason for Visit * Reason Comments Med Refill Encounter Details Date Type Department Care Team (Late st Contact Info) Description 12/27/2022 Refill [facility] MED[facility]INE [address] [place] [address] Jocelyn Bender DO [address] [place] [address] Seasonal allergic rhinitis, unspecified trigger Social History [...] Info) Description 10/04/2024 11:30 AM EDT Telemedicine [address] [address] Guero Burns, Mario [address] [place] [address] 10/10/2024 10:30 AM EDT Office Visit [address] [phone] Pretty Molina MD [address] [place] [address] 12/05/2024 2:00 PM EDT Clinical Support [address] [phone] Sandra Boyd RN documented as of this encounter Visit Diagnoses Diagnosis Seasonal allergic rhinitis, unspecified trigger documented in this encounter Additional Health Concerns Assessment Noted Time PHQ-9 Depression Total Score: 12 023 3:08 PM EDT documented as of this encounter Care Teams Blender / Cook Relationship Specialty Start Date End Date Pretty Molina MD [address] [place] [address] [phone] PCP - General Family Medicine 12/24/20 Guero Burns, PharmAyush [address] [place] [address] [phone] Pharmacist Internal Medicine 09/20/24 documented as of this encounter
--- OUTSIDE RECORDS SUMMARY | 2024-09-20 16:09 | XMS_ITS | Encounter Summary ---
Author Organization [employer] Address [address] [facility] 7t [place] [address] Care Team Providers Care Supervisor Continuous [employer] Name Role Phone Pretty Molina MD Primary Care Provide r Guero Burns PharmD Unavailable [phone] Reason for Visit * Reason Comments Med Refill Encounter Details Date Type Department Care Team (Late st Contact Info) Description 12/06/2023 Refill [facility] 230 [place] [address] Pretty Molina MD [address] [place], [place] [phone] Other chronic pain Social History Tobacco Use [...] Info) Description 10/04/2024 11:30 AM EDT Telemedicine [address] [address] Guero Burns, PoloD [address] [place] [address] 10/10/2024 10:30 AM EDT Office Visit [address] [address] Pretty Molina MD [address] [place] [address] 12/05/2024 2:00 PM EDT Clinical Support [address] [address] Sandra Boyd RN documented as of this encounter Visit Diagnoses Diagnosis Other chronic pain documented in this encounter Additional Health Concerns Assessment Noted Time PHQ-9 Depression Total Score: 12 023 3:08 PM EDT documented as of this encounter Care Teams Supervisor Continuous [employer] Relationship Specialty Start Date End Date Pretty Molina MD [address] [place] [address] PCP - General Family Medicine 12/24/20 Guero Burns, PharmD [address] [place] [address] Pharmacist Internal Medicine 09/20/24 documented as of this encounter
--- OUTSIDE RECORDS SUMMARY | 2024-09-20 16:09 | XMS_ITS | Encounter Summary ---
Author Organization [employer] Address [address] [facility] 7t [place] [address] Care Team Providers Care Rn International Name Role Phone Pretty Molina MD Primary Care Provide r Guero Burns PharmD Unavailable [phone] Reason for Visit * Reason Comments Med Refill Encounter Details Date Type Department Care Team ([facility] st Contact Info) Description 04/15/2024 Refill [facility] [address] [place] [address] Pretty Molina MD 230 [place] [address] Social History Tobacco Use Types Packs/Day Years [...] Info) Description 10/04/2024 11:30 AM EDT Telemedicine [address] [address] Guero Burns, PharmD [address] [place] [address] 10/10/2024 10:30 AM EDT Office Visit [address] [address] Pretty Molina MD [address] [place] [address] 12/05/2024 2:00 PM EDT Clinical Support [address] [address] Sandra Boyd RN documented as of this encounter Visit Diagnoses Not on filedocumented in this encounter Additional Health Concerns Assessment Noted Time PHQ-9 Depression Total Score: 4 01/06/20 24 2:22 PM EDT documented as of this encounter Care Teams Rn International Relationship Specialty Start Date End Date Pretty Molina MD [address] [place] [address] PCP - General Family Medicine 12/24/20 Guero Burns, PoloD [address] [place] [address] Pharmacist Internal Medicine 09/20/24 documented as of this encounter
--- OUTSIDE RECORDS SUMMARY | 2024-09-20 16:09 | XMS_ITS | Encounter Summary ---
Author Organization [employer] Address [address] [facility] 7t [place] [address] Care Team Providers Care Branch Assistant Name Role Phone Pretty Molina MD Primary Care Provide r Guero Burns PharmD Unavailable [phone] Reason for Visit * Reason Comments Med Refill Encounter Details Date Type Department Care Team (Late st Contact Info) Description 11/24/2022 Refill [facility] [address] [place] [address] Eliezer Richardson DDS [address] [place] [address] Social History Tobacco Use Types Packs/Day Years [...] Info) Description 10/04/2024 11:30 AM EDT Telemedicine [address] [phone] Guero Burns, PharmD [address] [place] [address] 10/10/2024 10:30 AM EDT Office Visit [address] [phone] Pretty Molina MD [address] [place] [address] [phone] 12/05/2024 2:00 PM EDT Clinical Support [address] [phone] Sandra Boyd, TONY documented as of this encounter Visit Diagnoses Not on filedocumented in this encounter Additional Health Concerns Assessment Noted Time PHQ-9 Depression Total Score: 12 023 3:08 PM EDT documented as of this encounter Care Teams Branch Assistant Relationship Specialty Start Date End Date Pretty Molina MD [address] [place] [address] [phone] PCP - General Family Medicine 12/24/20 Guero Burns, PharmD [address] [place] [address] [phone] Pharmacist Internal Medicine 09/20/24 documented as of this encounter
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
--- OUTSIDE RECORDS SUMMARY | 2024-09-20 16:09 | XMS_ITS | Encounter Summary ---
Author Organization [employer] Address [address] [facility] 7t [place] [address] Care Team Providers Care Foreign Car Mechanic Name Role Phone Pretty Molina MD Primary Care Provide r Guero Burns PharmD Unavailable [phone] Reason for Visit * Reason Onset Date Comments Med Refill 01/05/2023 Encounter Details Date Type Department Care Team (Late st Contact Info) Description 01/05/2023 Telephone [facility] [address] [place] [address] Pretty Molina MD [address] [place] [address] Med Refill Social History Tobacco Use Types [...] Description 10/04/2024 11:30 AM EDT Telemedicine [address] [address] Guero Burns, Mario [address] [place] [address] 10/10/2024 10:30 AM EDT Office Visit [address] [phone] Pretty Molina MD [address] [place] [address] 12/05/2024 2:00 PM EDT Clinical Support [address] [phone] Sandra Boyd, TONY documented as of this encounter Visit Diagnoses Not on filedocumented in this encounter Additional Health Concerns Assessment Noted Time PHQ-9 Depression Total Score: 12 023 3:08 PM EDT documented as of this encounter Care Teams Foreign Car Mechanic Relationship Specialty Start Date End Date Pretty Molina MD [address] [place] [address] [phone] PCP - General Family Medicine 12/24/20 Guero Burns, PharmD [address] [place] [address] [phone] Pharmacist Internal Medicine 09/20/24 documented as of this encounter
--- OUTSIDE RECORDS SUMMARY | 2024-09-20 16:09 | XMS_ITS | Encounter Summary ---
Author Organization [employer] Address [address] [facility] 7t [place] [address] Care Team Providers Care Category Planner Name Role Phone Pretty Molina MD Primary Care Provide r Guero Burns PharmD Unavailable [phone] Reason for Visit * Reason Comments Med Refill Encounter Details Date Type Department Care Team (Late st Contact Info) Description 04/21/2024 Refill [facility] MED[facility]INE [address] [place] [address] Pretty Molina MD [address] [place] [address] Neuropathy Social History Tobacco Use Types Packs/Day [...] Info) Description 10/04/2024 11:30 AM EDT Telemedicine [address] [address] Guero Burns, PoloD [address] [place] [address] 10/10/2024 10:30 AM EDT Office Visit [address] [address] Pretty Molina MD [address] [place] [address] 12/05/2024 2:00 PM EDT Clinical Support [address] [address] Sandra Boyd RN documented as of this encounter Visit Diagnoses Diagnosis Neuropathy Mononeuritis of unspecified site documented in this encounter Additional Health Concerns Assessment Noted Time PHQ-9 Depression Total Score: 4 01/06/20 24 2:22 PM EDT documented as of this encounter Care Teams Category Planner Relationship Specialty Start Date End Date Pretty Molina MD [address] [place] [address] PCP - General Family Medicine 12/24/20 Guero Burns, PharmD [address] [place] [address] Pharmacist Internal Medicine 09/20/24 documented as of this encounter
--- OUTSIDE RECORDS SUMMARY | 2024-09-20 16:09 | XMS_ITS | Encounter Summary ---
Author Organization [employer] Address [address] [facility] 7t [place] [address] Care Team Providers Care Client Executive Name Role Phone Pretty Molina MD Primary Care Provide r Guero Burns PharmD Unavailable [phone] Encounter Details Date Type Department Care Team (Late st Contact Info) Description 11/12/2022 Orders Only [facility] [address] [place], [place] [phone] Jocelyn Fleming LPN Social History Tobacco Use [...] Info) Description 10/04/2024 11:30 AM EDT Telemedicine [facility] [address] [place] [address] Guero Burns, PharmD [address] [place], [place] [phone] 10/10/2024 10:30 AM EDT Office Visit [facility] [address] [place], [place] [phone] Pretty Molina MD [address] [place] [address] 12/05/2024 2:00 PM EDT Clinical Support [facility] [address] [place] [address] Sandra Boyd, RN documented as of this encounter Visit Diagnoses Not on filedocumented in this encounter Care Teams Client Executive Relationship Specialty Start Date End Date Pretty Molina MD [address] [place] [address] PCP - General Family Medicine 12/24/20 Guero Burns, PoloD [address] [place] [address] Pharmacist Internal Medicine 09/20/24 documented as of this encounter
--- OUTSIDE RECORDS SUMMARY | 2024-09-20 16:09 | XMS_ITS | Clinical Summary ---
Author Organization [employer] Address [address] [facility] [address] [place] [address] Care Team Providers Care Agricultural Lender Name Role Phone Pretty Molina MD Primary Care Provide r Guero Burns PharmD Unavailable [phone] Allergies Active Allergy Reactions Criticality Noted Date Comments Morphine Palpitations Low 06/25/2022 tachycardia Medications hydrocortisone (Anusol-HC) 2.5 % rectal creamIndications :Hemorrhoids, unspecified hemorrhoid type Apply a thin layer to affected area(s)twice daily to four times daily as needed 30 g 023 Active Blood Glucose Monitoring Suppl (FreeStyle Lite) w/Device kitIndications:T ype 2 diabetes mellitus with hyperglycemia, without long-term current use of insulin ([facility]) 1 kit 2 times daily. To monitor blood glucose. 1 kit 023 Active SF 5000 Plus 1.1 % cream USE AT BEDTIME DO NOT RINSE FOR 30 MINUTES 51 g 023 Active Blood Pressure Monitoring (B-D ASSURE BPM/AUTO WRIST CUFF) miscIndications: Essential hypertension 1 each Once daily. 1 each 023 Active estradiol (Estrace) 0.1 MG/GM vaginal cream APPLY 1 GRAM TOPICALLY VAGINALLY 2 TIMES PER WEEK. 42.5 g 1 024 Active dextran 70-hypromellose (artificial tears) 0.1-0.3 % ophthalmic solutionIndicati ons:Dry eyes Administer 1 drop into both eyes if needed in the morning, at noon, and at bedtime for dry eyes. 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 insulin use ([facility]) TAKE 1 TABLET BY MOUTH EVERY MORNING 90 tablet 1 024 Active omeprazole (PriLOSEC) [address] capsule TAKE 1 CAPSULE BY MOUTH EVERY MORNING 90 capsule 1 024 Active hydroCHLOROthiaz malorie 12.5 MG tabletIndication s:Primary [...] without long-term current use of insulin ([facility]) INJECT ONE PEN (=1.5MG) SUBCUTANEOUSLY ONCE A WEEK DIRECTED 2 mL 1 025 Active NIFEdipine XL (Procardia XL) [...] AND BEDTIME 180 capsule 1 025 Active oxyCODONE-acetam inophen (Percocet) 5-325 MG tabletIndication s:Other chronic pain TAKE 1 TABLET BY MOUTH EVERY TWELVE HOURS NEEDED FOR SEVERE PAIN 56 tablet 025 Active Diclofenac Sodium 1 % gelIndications:F ibromyalgia Apply 1 Application topically 2 times daily. APPLY 2 GRAMS TOPICALLY TO AFFECTED AREA(S) EVERY TWELVE HOURS NEEDED 100 g 1 025 Active ammonium lactate (Lac-Hydrin) 12 % lotion APPLY TO LA PLANTA DEL PIE cada dmitriy EN LA NOCHE UTILIZA MEDIAS PARA DORMIR 025 Active carvedilol (Coreg) 6.25 MG tablet TAKE 1 TABLET BY MOUTH TWICE DAILY IN THE MORNING AND IN THE EVENING 025 Active DULoxetine (Cymbalta) [address] capsule TAKE 1 CAPSULE BY MOUTH EVERY EVENING WITH 60 MG CAPSULE Active DULoxetine (Cymbalta) [address] capsule Take 60 mg by mouth in the morning. Active ezetimibe (Zetia) 10 MG tablet Take 1 tablet by mouth Once per day. 025 Active hydrOXYzine pamoate (Vistaril) 25 MG capsule TAKE 1 TO 2 CAPSULES BY MOUTH EVERY DAY AT BEDTIME NEEDED Active ketoconazole (NIZOral) 2 % shampoo APPLY TO DRY SCALP 10 MINUTES BEFORE SHOWER. RINSE AND CLEAN HAIR 1-2 TIMES WEEKLY Active Myrbetriq 50 MG 24 hr tablet Take 50 mg by mouth in the morning. Active mometasone (Elocon) 0.1 % lotion APPLY TOPICALLY TO THE AFFECTED AREA(S) OF SCALP ONE OR TWO TIMES DAILY NEEDED FOR ITCHING FOR 2 WEEKS THEN coja un reposo de geoffrey semana THEN NEEDED Active Reguloid 57.6 % powder DISSOLVE 1 TABLESPOONFUL IN AT LEAST 8 OUNCES WATER AND DRINK DAILY DIRECTED Active risperiDONE (RisperDAL) 2 MG tablet Take 2 mg by mouth at bedtime. Active triamcinolone (Kenalog) 0.1 % ointment APPLY TOPICALLY TO THE AFFECTED AREA(S) OF BODY TWICE DAILY FOR 2 WEEKS THEN coja un reposo de geoffrey semana AND USE vaseline THEN NEEDED Active nicotine (Nicoderm CQ) 14 MG/24HR patchIndications :Tobacco dependence Place 1 patch on the skin 1 (one) time each day at the same time. 21 patch 1 Active nicotine polacrilex (FT Nicotine) 4 MG lozengeIndicatio ns:Tobacco dependence Dissolve 1 lozenge (4 mg) in the mouth every 1-2 hours if needed for smoking cessation. 144 lozenge 1 025 Active glipiZIDE (Glucotrol) 10 MG tabletIndication s:Diabetes mellitus type 2 in nonobese (CMS/HCC) TAKE 1 TABLET BY MOUTH EVERY MORNING BEFORE BREAKFAST 90 tablet 3 025 Active losartan (Cozaar) 100 MG tabletIndication s:Primary hypertension TAKE 1 TABLET BY MOUTH EVERY MORNING 90 tablet 3 025 Active cetirizine (ZyrTEC) 10 MG tabletIndication s:Seasonal allergies Take 1 tablet (10 mg) by mouth in the morning. 90 tablet Active Proventil HFA 108 (90 Base) MCG/ACT inhaler INHALE 2 PUFFS BY MOUTH EVERY 4 TO 6 HOURS NEEDED 6.7 g 3 023 2024 Discontinued Neomycin-Polymyx in-HC 1 % solutionIndicati ons:Acute diffuse otitis externa of both ears Administer 3 drops into affected ear(s) 4 times daily. 10 mL 023 2024 Discontinued(M ed list cleanup (will not trigger notification to Pharmacy)) dulaglutide (Trulicity) 1.5 MG/0.5ML solution pen-injectorIndi cations:Type 2 diabetes mellitus with hyperglycemia, without long-term current use of insulin ([facility]) Inject 1.5 mg under the skin 1 (one) time per week. 4 pen 11 023 2024 Discontinued RSV Pre-Fusion F A&B Vac Rcmb (Abrysvo) 120 MCG/0.5ML reconstituted solutionIndicati ons:Type 2 diabetes mellitus with hyperglycemia, without long-term current use of insulin ([facility]) Inject 1 each into the shoulder, thigh, or buttocks Once daily. 1 each 023 2024 Discontinued(M ed list cleanup (will not trigger notification to Pharmacy)) magnesium hydroxide (Milk of Magnesia) 2400 MG/10ML suspension suspensionIndica tions:Other constipation Take 10 mL by mouth if needed each day for constipation. 300 mL 1 024 2024 Discontinued(M ed list cleanup (will not trigger notification to Pharmacy)) Glycerin-Hyprome llose-PEG 400 (SM Dry Eye Relief) 0.2-0.2-1 % solutionIndicati ons:Dry eye syndrome of bilateral lacrimal glands INSTILL 1 DROP IN EACH EYE THREE TIMES DAILY IN THE MORNING, AT NOON, AND AT BEDTIME FOR DRY EYES 15 mL 1 024 2024 Discontinued(M ed list cleanup (will not trigger notification to Pharmacy)) losartan (Cozaar) 100 MG tabletIndication s:Primary hypertension TAKE 1 TABLET BY MOUTH EVERY MORNING 90 tablet 3 024 2024 Discontinued glipiZIDE (Glucotrol) 10 MG tabletIndication s:Diabetes mellitus type 2 in nonobese ([facility]) TAKE 1 TABLET BY MOUTH EVERY MORNING BEFORE BREAKFAST 90 tablet 3 024 2024 Discontinued Diclofenac Sodium 1 % gelIndications:F ibromyalgia APPLY 2 GRAMS TOPICALLY TO AFFECTED AREA(S) EVERY TWELVE HOURS NEEDED 100 g 1 024 2024 Discontinued(R eorder (will not trigger notification to Pharmacy)) nicotine polacrilex (Nicotine Mini) 2 MG lozengeIndicatio ns:Tobacco dependence Dissolve 1 lozenge (2 mg) in the mouth if needed for smoking cessation. 100 lozenge 024 2024 Discontinued(M ed list cleanup (will not trigger notification to Pharmacy)) cetirizine (ZyrTEC) 10 MG tabletIndication s:Seasonal allergies TAKE 1 TABLET BY MOUTH EVERY MORNING 90 tablet 025 2024 Discontinued(R eorder (will not trigger notification to Pharmacy)) oxyCODONE-acetam inophen (Percocet) 5-325 MG tabletIndication s:Other chronic pain Take 1 tablet by mouth every 12 (twelve) hours if needed for severe pain for up to 28 days. Do not start before August 07, 2024. 56 tablet 025 2024 Discontinued Active Problems Problem Noted Date Diagnosed Date [...] Encounters Date Type Department Care Team Description 09/17/2024 1:30 PM EDT Telemedicine [facility] MEDICINE [address] [place] [address] Guero Burns, PharmD Tobacco dependence (Primary Dx) 09/17/2024 Travel 09/16/2024 Refill [facility] [address], [place] [phone] Pretty Molina MD Diabetes mellitus type 2 in nonobese (CMS/[facility]); Primary hypertension; Seasonal allergies 09/13/2024 Patient Outreach [facility] MED[facility] [address] [place] [address] Pretty Molina MD Care Coordination (SDOH f/u) 09/11/2024 Travel 09/03/2024 Refill [facility] [address] [place] [address] Pretty Molina MD Fibromyalgia 08/31/2024 Refill [facility] [address] [place] [address] Pretty Molina MD Other chronic pain 08/31/2024 Patient Outreach [facility] [address] [place] [address] Pretty Molina MD Care Coordination (SDOH) 08/24/2024 Population Health Risk Score [facility] () Department [address] [place] [phone] Provider, Population Health Generic 08/19/2024 Refill [facility] [address] [place] [address] Pretty Molina MD [facility] 08/17/2024 Refill [facility] [address] [place] [address] Pretty Molina MD 08/16/2024 Patient Outreach [facility] MEDICINE [address] [place] [address] Pretty Molina MD Care Coordination (SDOH) 08/16/2024 Orders Only GENERIC EXTERNAL DATA DEPARTMENT Provider, Generic External Data 08/15/2024 Refill [facility] [address] [place] [address] Pretty Molina MD Essential hypertension 08/09/2024 Patient Outreach [facility] [address] [place] [address] Pretty Molina MD Care Coordination (SDOH f/u) 08/06/2024 Refill [facility] [address] [place] [address] Pretty Molina MD Other chronic pain 08/02/2024 Patient Outreach [facility] MED[facility]INE [address] [place] [address] Pretty Molina MD Care Coordination ([facility]) 08/02/2024 Patient Outreach [facility] MED[facility] [address] [place] [address] Pretty Molina MD Care Coordination ([facility]) 07/30/2024 Refill [facility] [address] [place] [address] Pretty Molina MD Type 2 diabetes mellitus with hyperglycemia, without long-term current use of insulin ([facility]) 07/27/2024 Patient Outreach [facility] MED[facility] [address] [place] [address] Pretty Molina MD Care Coordination ([facility]) 07/27/2024 Refill [facility] MEDICINE [address] [place] [address] Pretty Molina MD 07/20/2024 Orders Only GENERIC EXTERNAL DATA DEPARTMENT Provider, Generic External Data 07/19/2024 Refill [facility] [address] [place] [address] Pretty Molina MD 07/18/2024 Orders Only GENERIC EXTERNAL DATA DEPARTMENT Provider, Generic External Data 07/18/2024 Refill [facility] [address] [place] [address] Pretty Molina MD Dry eye syndrome of bilateral lacrimal glands 07/09/2024 Refill [facility] [address] [place] [address] Pretty Molina MD Other chronic pain 07/01/2024 Refill [facility] [address] [place] [address] Cristian Briones, [facility] 06/25/2024 Refill C [facility] PED[facility] [address], [place] [phone] Pretty Molina MD Primary hypertension from Last 3 Months Immunizations Name Administration [...] Tobacco: Never Tobacco Cessation:Ready to Q uit: Yes; Counseling Given: Yes Comments:Currently smokes 1/3 PPD. Been a smoker for 35 years, [...] is your housing situation today? I have krystiantova rascon 12/28/[address] you [...] Info) Description 10/04/2024 11:30 AM EDT Telemedicine [address] [address] Guero Burns, PharmD [address] [place] [address] 10/10/2024 10:30 AM EDT Office Visit [address] [address] Pretty Molina MD [address] [place] [address] 12/05/2024 2:00 PM EDT Clinical Support [address] [address] Sandra Boyd, TONY Health Maintenance Due Date Last Done Comments CT Colonography 1960 Colonoscopy 1961 Colorectal Cancer Screening 1960 FIT DNA/Cologuard 1961 FIT 1961 FOBT 1960 Sigmoidoscopy 1961 Diabetes: Foot Exam 1971 Eye Exam 1971 Alcohol/Substance Use Screening 1973 Pneumococcal Vaccine: 50+ Years (1 of 2 - PCV) 1980 Lung Cancer Screening 2011 COVID-19 Vaccine ( season) 2024 10/30/2020, 10/02/2020 Diabetes: Hemoglobin A1C 10/04/2024 024, 01/06/2024, 05/30/2023, Additional history exists SDOH Screening 12/27/2024 12/28/2023 Depression Screening 01/05/2025 01/06/2024, 01/06/20 24 Mammogram 07/25/2025 07/25/2024, 1009/2022, 03/10/2022, Additional history exists Lipid Panel 08/16/2025 08/16/2024, 12/13, 10/11/2022, Additional history exists Tobacco Screening 09/14/2025 09/14/2024 DTaP/Tdap/Td Vaccines (2 - Td or Tdap) [...] STAIN Routine 07/18/2024 12:02 PM EST POCT GLYCATED HEMOGLOBIN, TOTAL Routine 04/05/2024 3:05 PM EDT Type 2 diabetes mellitus with hyperglycemia, without long-term current use of insulin ([facility]) HPV MRNA E6/E7 REFLEX TO HPV 16, [...] 1 AM EST 08/16/2024 1:11 PM EST Narrative [facility] - 08/17/2024 4:59 PM EST ----- ------- Name: Violet Pascal ? Age/Sex: 64/F ? : 1960 Unit#: [id number] ?? Attend Dr: Ramesh Gurrola MD ?Re08/16/24 ?Status: DEP SDC ? Location: HO.SSS ?Disch: ? ----- ------- SPEC : [id number] ? RECD: 08/16/24-1 ? STATUS: ??SOUT ? REQ NUM: [id number] ? YASMINE: 08/16/24-1121 ? SUBM DR: Ramesh Gurrola MD ? [...] microscopic examination, multiple pieces in cassette A. ??([facility]) Copies To: ?? Pretty Molina MD ?? [facility] ?? [address] ?? [place] [address] ?? [phone] ?? Ramesh Gurrola MD ?? [facility] ?? [address] ?? [place] [address] ?? [phone] ? CONTINUED ON NEXT PAGE ----- ------- Name: Violet Pascal ? Age/Sex: 64/F ? : 1960 Unit#: [id number] ?? Attend Dr: Ramesh Gurrola MD ?Re08/16/24 ?Status: DEP SDC ? Location: HO.SSS ?Disch: ? ----- ------- SPEC : [id number] ? RECD: 08/16/24 ? STATUS: ??SOUT ? REQ NUM: [id number] ? YASMINE: 08/16/24 ? SUBM DR: Ramesh Gurrola MD ? ENTERED: ??08/16/24 ?SP TYPE: Surgical ? OTHR DR: Pretty Molina MD ? ORDERED: ??HE Stain/2, Gross Micro L4 ? ----- ------- Signed (signature on file) Wally Harding MD 08/17/24 0519 ? ----- ------- ? END OF REPORT ? us Generic External Data Provider LAB BLOOD ORDERAB LES Final Result Performing Organization Address [facility] de Phone Number [facility] [address], [place] [phone] * (ABNORMAL) Glucose, Whole Blood (08/16/2024 10:29 AM EST) Glucose, Whole Blood 150(H) 60 - 115 mg/dL [facility] Comment:METER #: [id number] 08/16/2024 10:2 9 AM EST 08/16/2024 10:33 AM EST us Generic External Data Provider LAB BLOOD ORDERAB LES Final Result Performing Organization Address [facility] Co de Phone Number [facility] [address], [place] [phone] * Lipid Panel, Standard (08/16/2024 9:01 AM EST) Triglycerides 106 <150 mg/dL [facility] Comment:Desirable Triglyceri de: less than 150 mg/dLBorderline High Triglyceride 150-199 mg/dLHigh Triglyceride: 200-499 mg/dLVery High Triglyceride: greater than or equal to 5OO mg/dL Cholesterol 148 <200 mg/dL [facility] Comment:Desirable Cholestero l: less than 200 mg/dLBorderline High Cholesterol: 200-239 mg/dLHigh Cholesterol: greater than 239 mg/dL LDL Cholesterol Calculated 81 <100 mg/dL [facility] Comment:Desirable LDL: less than 100 mg/dLNear Optimal/Above Optimal LDL: 110- 129 mg/dLBorderline High LDL: 130-159 mg/dLHigh LDL: 160-189 mg/dLVery High LDL: greater than or equal to 190 mg/dL HDL Cholesterol 46 >40 mg/dL [facility] Comment:Desirable HDL: great er than 40 mg/dL Note: This HDL assay may give artificially low results in patients with liver disease. 08/16/2024 9:01 AM EST 08/16/2024 9:01 AM EST us Generic External Data Provider LAB BLOOD ORDERAB LES Final Result [facility] [address] [place] [address] [phone] * BI Mammogram Screening Tomosynthesis Bilateral (07/25/2024 2:30 PM EST) Anatomical Region Laterality Modality Breast Bilateral Mammography 07/25/2024 2:30 PM EST Narrative 08/03/2024 4:35 PM EST ? [facility] ? [address] ?[place] [address] ? Mammography Report ? Signed ? Patient: Pascal,Fredevinda ?MR#: [id number] ?? [id number] ? : 1960 ?Acct:[id number] ? Age/Sex: 64 / F ?ADM Date: 07/25/25 ? Loc: HO.MAMMO ? Attending Dr: Pretty Zayas MD ? Ordering Physician: Pretty Molina MD ?Results: ?? 2Benign Findings ? Date of Service: 07/25/24 ?Follow Up: 1 Year From Orig ?? inal Mammogram ? Procedure(s): MM tomosynthesis screening BI ?? Accession Number(s): [id number] ? cc: Pretty Molina MD ? EXAMINATION: [...] DD/ 1430 ? TD/TT: 07/25/24 1446 ? Sharepoint Analyst: ? Procedure Note Donclint, Image - 08/03/2024 I[facility] [address] [place] [address] Mammography Report Signed Patient: Abraham Pascal#: [id number] : 1960cct:[id number] Age/Sex: 64 / FADM Date: 07/25/24 Loc: HO.MAMMO Attending Dr: Pretty Zayas MD Ordering Physician: Pretty Molina MDResults: 2Benign Findings Date of Service: 07/25/24Follow Up: 1 Year From Orig inal Mammogram Procedure(s): MM tomosynthesis screening BI Accession Number(s): [id number] cc: Pretty Molina MD EXAMINATION: MM SCREENING [...] 08/03/24 1632 DD/ 1430 TD/TT: 07/25/24 1446 Sharepoint Analyst: us Pretty Zayas MD IMG BI PROCEDURES Fin al Result * US Pelvis Transvaginal (07/21/2024 9:20 AM EST) Anatomical Region Laterality Modality Pelvis Ultrasound 07/21/2024 9:20 AM EST Narrative 07/21/2024 9:21 AM EST ? [facility] ?[address] ?[place] [address] ? Ultrasound Report ? Signed ? Patient: Violet Pascal ?MR#: [id number] ?? [id number] ? : 1960 ?Acct:[id number] ? Age/Sex: 64 / F ?ADM Date: 07/20/24 ? Loc: HO.US ? Attending Dr: Ramesh Gurrola MD ? Ordering Physician: Ramesh Gurrola MD ?? Date of Service: 07/20/24 ?? Procedure(s): US pelvic and transvaginal ?? Accession Number(s): [id number] ? cc: Pretty Molina MD; Ramesh Gurrola [...] ? DD/ 9 ? TD/TT: 07/21/24919 ? Sharepoint Analyst: ? Procedure Note Dontabithater, Image - 07/21/[address] [address] Ultrasound Report Signed Patient: Abraham Pascal#: [id number] : 1960cct:[id number] Age/Sex: 64 / FADM Date: 07/20/24 Loc: HO.US Attending Dr: Ramesh Gurrola MD Ordering Physician: Ramesh Gurrola MD Date of Service: 07/20/24 Procedure(s): US pelvic and transvaginal Accession Number(s): [id number] cc: Pretty Molina MD; Ramesh Gurrola MD [...] in OV> 07/21/24919 DD/ 9 TD/TT: 07/21/24919 Sharepoint Analyst: [facility] External Provider IMG US PROCEDURES Edited Result - Final * (ABNORMAL) Basic Metabolic Panel (07/20/2024 12:01 PM EST) Sodium 137 135 - 145 mmol/L [facility] Potassium 4.2 3.3 - 5.1 mmol/L [facility] Chloride 103 96 - 108 mmol/L [facility] Carbon Dioxide 24 22 - 29 mmol/L [facility] Anion Gap 14 12 - 20 [facility] Urea Nitrogen (BUN) 18(H) 9 - 16 mg/dL [facility] Creatinine, Serum 0.75 0.5 - 1.4 mg/dL [facility] Estimated Glomerular Filt Rate >60 [facility] Comment:Chronic Kidney Disea se: Estimated GFR < 60 mL/min/1.32y3Zpskpg Kidney Disease: Estimated GFR < 15 mL/min/1.73m2 Glucose 156(H) 60 - 115 mg/dL [facility] Calcium 9.4 8.4 - 10.2 mg/dL [facility] 07/20/2024 12:0 1 PM EST 07/20/2024 12:01 PM EST Result [facility] Generic External Data Provider LAB BLOOD ORDERAB LES Final Result [facility] [address] [place] [phone] * (ABNORMAL) POCT HGB A1C (04/05/2024 3:05 PM EDT) Hemoglobin A1C 6.9(A) 4.0 - 6.0 % QC Media Lot # [id number] Lot# Expiration Date Blood 04/05/2024 3:05 PM EDT Pretty Zayas MD POINT OF CARE TEST EN TER/EDIT ORDERABLES Final Result * HPV mRNA E6/E7 w/Reflex to HPV Genotypes 16, 18/45 (04/18/2023 2:08 PM EST) HPV nRNA E6/E7 Not Detected Not Detected [facility] Comment:Methodology: Transcr iption-Mediated AmplificationThis assay detects E6/E7 viral messenger RNA (mRNA) from 14high-risk HPV types (16,18,31,33,35,39,45,51,52,56,58,59,66,68).Cervical sources are required for HPV testing.If a vaginal source from a patient who has had atotal hysterectomy with removal of cervix wassubmitted, please contact the testing laboratoryfor alternative testing options.For additional information, please refer [email or web address]/faq/[email or web address](This link if provided for information/educational purposes only.)THIS TEST WAS PERFORMED AT:[facility] [place] [id number] ANNE MD HPV mRNA E6/E7 [facility] HPV 16 RNA [facility] HPV 18/45 RNA [facility] 04/18/2023 2:08 PM EST 04/19/2023 8:20 AM EST Cristian Briones [facility] CYTOLOGY ORDERABLES F inal Result [facility] [address] [place] [phone] * Pap Smear (04/18/2023 2:08 PM EST) 04/18/2023 2:08 PM EST 04/19/2023 8:20 AM EST Narrative [facility] - 04/26/2023 1:40 PM EST ----- ------- Name: Violet Pascal ? Age/Sex: 63/F ? : 1960 Unit#: [id number] ?? Attend Dr: CRISTIAN BRIONES CNM ?Re04/18/23 ?Status: DEP REF ? Location: HO.HHCLNP ? Disch: ? ----- ------- SPEC : [id number] ?RECD: 04/19/23 ? STATUS: ??SOUT ? REQ NUM: [id number] ? YASMINE: 04/18/23-5731 ? SUBM DR: CRISTIAN BRIONES CNM ? [...] 66, 68) ?? HPV testing performed by [facility], [place], [place]. ??See reference laboratory ?? pion of the EMR for entire report. ?Clinical Information LMP: Postmenopausal Previous PAP test: Unknown date/findings ? Material Received ?? ThinPrep-Cervical ----- ------- Signed (signature on file) MARIOLA Walker (ASCP) 04/26/23 1340 ? ----- ------- ? END OF REPORT ? us Cristian Briones CNM LAB CYTOLOGY ORDERABLES F inal Result [facility] [address] [place] [address] [phone] * Hepatitis C Antibody (02/03/2021 12:01 [...] detection of this assay. ?? [employer] HIV Ag/Ab Combo assay result and supplemental [...] MD HISTORICAL/NON ORDERABLE LABS Fi nal Result Performing Organization Address City/[facility]/ZIP Co de Phone Number [facility] [address] from Last 3 Months or Most Recently Relevant to Health Maintenance [facility] Care Teams Agricultural Lender Relationship Specialty Start Date End Date Pretty Molina MD [address] [place] [address] PCP - General Family Medicine 12/24/20 Guero Burns, PoloD [address] [place] [address] Pharmacist Internal Medicine 09/20/24
--- OUTSIDE RECORDS SUMMARY | 2024-09-20 16:09 | XMS_ITS | Encounter Summary ---
Author Organization [employer] Address [address] [facility] 7t [place] [address] Care Team Providers Care Stencil Inspector Name Role Phone Pretty Molina MD Primary Care Provide r Reason for Visit * Reason Comments Med Refill Encounter Details Date Type Department Care Team (Late st Contact Info) Description 09/16/2024 Refill [facility] [address] [place] [address] Pretty Molina MD [address] [place] [address] Diabetes mellitus type 2 in nonobese (CMS/HCC); Primary hypertension; Seasonal allergies Social History Tobacco Use Types [...] Info) Description 10/04/2024 11:30 AM EDT Telemedicine [facility] [address] [place] [address] Guero Burns, PoloD [address] [place] [phone] 10/10/2024 10:30 AM EDT Office Visit [address] [address] Pretty Molina MD [address] [place] [address] 12/05/2024 2:00 PM EDT Clinical Support [address] [address] Sandra Boyd, RN documented as of this encounter Visit Diagnoses Diagnosis Diabetes mellitus type 2 in nonobese ([facility]) Type II or unspecified type diabetes mellitus without mention of complication, not stated as uncontrolled Primary hypertension Unspecified essential hypertension Seasonal allergies Allergic rhinitis, cause unspecified documented in this encounter Additional Health Concerns Assessment Noted Time PHQ-9 Depression Total Score: 4 01/06/20 24 2:22 PM EDT documented as of this encounter Care Teams Stencil Inspector Relationship Specialty Start Date End Date Pretty Molina MD [address] [place] [address] PCP - General Family Medicine 12/24/20 documented as of this encounter
--- OUTSIDE RECORDS SUMMARY | 2024-09-20 16:09 | XMS_ITS | Clinical Summary ---
Author Organization [facility] Address [address] [place] [address] Phone Care Team Providers Care Sales Support Technician Name Role Phone Pretty Molina MD [...] by mouth 2 times daily. Active ceramide 1,3,3-ZH-fypw-hyal ur (CeraVe PM) lotion,extended release Apply topically. [...] 2 times daily. Active miscellaneous medical supply [facility] by Does not apply [...] testing completed and was unremarkable Morbid obesity ([facility] V24, [facility] V28) 2018 Type 2 diabetes mellitus ([facility] V24, [facility] V 28) 01/23/2019 Surgical History Surgery Date Site/Laterality Comments TUBAL LIGATION PROCEDURE: HISTORICAL TUBAL LIGATION OTHER SURGICAL HISTORY PROCEDURE: [place] GRAFT COMPOSITE W/PRIMARY CLOSURE DONOR AREA Medical History Medical History Date Comments HTN (hypertension) DX:HTN (hyper tension) Depression DX:Depression Chronic pain DX:Chronic pain Obesity DX:Obesity 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[facility] V24, [facility] V28) DX:Microalbuminuric diabeti c nephropathy ([facility]) Hyperlipidemia DX:Hyperlipidemi a Carpal tunnel syndrome, bilateral DX:Carpal tunnel syndrome, bilateral Type 2 diabetes mellitus ( S/[facility] V24, [facility] V28) DX:Type 2 diabetes mellitus ([facility]) IBS (irritable bowel syndrome) D X:IBS (irritable [...] Vaccines (1 of 2) 2011 RSV Immunization Adult Patie nts (1 - Risk 60-74 years 1-dose series) 2021 Colorectal Cancer Screening: Colonoscopy 05/11/2022 Depression Screening 05/11/2022 HIV Screening 05/11/2022 Hepatitis C Screening 05/11/2022 Social Influencers of Health Screening 05/11/2022 Diabetes: Annual Urine Albumin-Creatinine Ratio (uACR) 05/27/2022 Diabetes: Blood Sugar Contro l Test (HGBA1C) 05/27/2022 07/20/2021 COVID-19 Vaccine (2023-2 5 season) 2024 Diabetes: Annual GFR (Glomer ular Filtration Rate) 01/09/2025 01/10/2024 Hypertension/CHF/CAD Annual BMP Blood Test 01/09/2025 01/10/2024 Influenza Vaccine (Season Ended) 2025 Cervical Cancer Screening: HPV 04/18/2028 04/18/2023 Cholesterol [...] age to complete this topic Meningococcal B Vaccine Aged Out No l onger eligible based on patient's age to complete [...] * Annual BMP Blood Test (01/10/2024) Pathologist [facility] Annual BMP Blood Test abstracted [facility] Provider HEALTH MAINTENANCE Final Result * Lipid panel (01/10/2024) [facility] Triglycerides 0 mg/dL Comment:no interpretation Cholesterol 0 mg/dL Comment:no interpretation HDL 0 mg/dL Comment:no interpretation LDL Cholesterol 0 mg/dL Comment:no interpretation Blood Venous blood specimen / Unknown [facility] Provider LAB BLOOD ORDERABLES Teresa l Result * Cervical Cancer Screening: HPV (04/18/2023) [facility] Cervical Cancer Screening: HPV No interpreta tion,abstr acted [facility] Provider [facility] Final Result * Hemoglobin A1c (07/20/2021) [facility] Hemoglobin A1C 0.0 % Comment:no interpretation Blood Venous blood specimen / Unknown [facility] Provider LAB BLOOD ORDERABLES Teresa l Result from Last 3 Months or Most Recently Relevant to Health Maintenance Insurance MEDICAID - [place] Care Teams Sales Support Technician Relationship Specialty Start Date End Date Pretty Molina MD [address] [place] [phone] PCP - General 06/01/23
--- OUTSIDE RECORDS SUMMARY | 2024-09-20 16:09 | XMS_ITS | Encounter Summary ---
Author Organization [employer] Address [address] [facility] 7t [place] [address] Care Team Providers Care Urban Design Consultant Name Role Phone Pretty Molina MD Primary Care Provide r Guero Burns PharmD Unavailable Reason for Visit * Reason Onset Date Comments Nurse Triage 04/26/2024 Encounter Details Date Type Department Care Team (Late st Contact Info) Description 04/26/2024 Telephone [facility] [address] [place] [address] Pretty Molina MD [address] [place] [address] Nurse Triage Social History Tobacco Use Types [...] 12:18 PM EST Please obtain note from [facility] visit 04/24/24, Upcoming appt with PCP tomorrow at 11am. * Telephone Encounter - Valeria Hooper LPN - 04/26/2024 11:58 AM EST Triage call returned with BLS #[id number] Yonathan. Patient reports that she was seen on 04/19/24. Patient is reporting following her Flu shot she has been feeling delicate . Chart shows Flu given in March. Call dropped. Return call with Set Painter Neto Mercedes. Patient reports seen at [facility] and not improved with cough and congestion. Has no reported fever. Patient then reports presented to [facility] on 04/24/24 and was given scan [...] become worse * Telephone Encounter - Nilson Quinn - 04/26/2024 11:49 AM EST Symptom: Breathing Trouble Outcome: Talk to a nurse or provider within 15 minutes Reason: Trouble breathing through the mouth The caller accepted this outcome. Contact pt at [phone] documented in this encounter Plan of Treatment Upcoming Encounters Date Type Department Care Team (Late st Contact Info) Description 10/04/2024 11:30 AM EDT Telemedicine [address] [address] Guero Burns, PoloD [address] [place] [phone] 10/10/2024 10:30 AM EDT Office Visit [address] [address] Pretty Molina MD [address] [place] [address] 12/05/2024 2:00 PM EDT Clinical Support [address] [address] Sandra Boyd RN documented as of this encounter Visit Diagnoses Not on filedocumented in this encounter Additional Health Concerns Assessment Noted Time PHQ-9 Depression Total Score: 4 01/06/20 24 2:22 PM EDT documented as of this encounter Care Teams Urban Design Consultant Relationship Specialty Start Date End Date Pretty Molina MD [address] [place] [address] PCP - General Family Medicine 12/24/20 Guero Burns, PoloD [address] [place] [address] Pharmacist Internal Medicine 09/20/24 documented as of this encounter
--- OUTSIDE RECORDS SUMMARY | 2024-09-20 16:09 | XMS_ITS | Encounter Summary ---
Author Organization [employer] Address [address] [facility] 7t [place] [address] Care Team Providers Care Cutter Machine Name Role Phone Pretty Molina MD Primary Care Provide r Encounter Details Date Type Department Care Team (Latest Contact Info) Description 09/17/2024 Travel Social History Tobacco Use Types Packs/Day [...] Info) Description 10/04/2024 11:30 AM EDT Telemedicine [address] [address] Guero Burns, PharmD [address] [place] [address] 10/10/2024 10:30 AM EDT Office Visit [address] [address] Pretty Molina MD [address] [place] [address] 12/05/2024 2:00 PM EDT Clinical Support [address] [address] Sandra Boyd, RN documented as of this encounter Visit Diagnoses Not on filedocumented in this encounter Additional Health Concerns Assessment Noted Time PHQ-9 Depression Total Score: 4 01/06/20 24 2:22 PM EDT documented as of this encounter Care Teams Cutter Machine Relationship Specialty Start Date End Date Pretty Molina MD [address] [place] [phone] PCP - General Family Medicine 12/24/20 documented as of this encounter
== END 2024-09-20 14:59 | disposition home or self-care (01) ==
LOC: HO.HUSH 13:22
PROVIDERS: PCP Internal Medicine; Visit Provider Urology
DX: R35.0 Frequency of micturition (principal); R31.29 Other microscopic hematuria; R10.2 Pelvic and perineal pain; N28.1 Cyst of kidney, acquired; N30.10 Interstitial cystitis (chronic) without hematuria
CPT/HCPCS: 99213

== ENCOUNTER → 2024-09-20 13:22 | Outpatient (BNVA) | payer MEDICAID, SELFPAY | PROVIDERS: PCP Internal Medicine; Visit Provider Urology | DX: N30.11 Interstitial cystitis (chronic) with hematuria (principal); R31.29 Other microscopic hematuria; N28.1 Cyst of kidney, acquired; R10.2 Pelvic and perineal pain; R35.1 Nocturia; R39.15 Urgency of urination; R35.0 Frequency of micturition; M79.7 Fibromyalgia; Z79.899 Other long term (current) drug therapy | CPT/HCPCS: 99212 ==

== ENCOUNTER 2024-10-03 14:24 | Outpatient (AMB) | payer MEDICAID, SELFPAY ==
--- NOTE | 2024-10-03 14:55 | A.OFFVIS_ITS ---
Vital Signs 10/03/24 14:57 Height 5 ft 2 in Weight 216 lb 0.848 oz BMI 39.5 BP 95/54 L Blood Pressure Location Lt radial Position Sitting Pulse 71 Intake Visit Reasons: Constipation f/u Intake Note: Violet presents in the office as a follow up for constipation. CC: BP was low - she is having some pains on the Left shoulder and seems to be going down her arm and in her left flank region. She is suffering from constipation and that is what brings her today. She states all of her medications for constipation were not working so she stopped taking them. Operations Vocational Instructor Required: Yes Operations Vocational Instructor Name: [id number] Allergies morphine [MORPHINE] Allergy (Unknown, Verified 10/03/24 14:57) UNKNOWN HPI Comments Details: 64 y.o F who is here to discuss repeat colo - as previous colo was poor prep. Pt seen with equipment maintenance tech. Pt reports constipation at baseline. Has to take bisacodyl and miralax 2-3 times a week to ensure daily BMs. Otherwise has hard stools that she has to strain for. Otherwise has no abd pain, N/V,D. No blood in stool. No fam hx of crc. Smokes 5-6 cigs/day. No etOH use. Last colo September 2023 - R colon not visualised. TA in transverse colon. Pt also reports lower back pain in lumbar area that is worse in the mornings, unchanged with BMs. PMH: septal hypertrophy, HTN, DM 10/03/24: Patient here for follow-up. Seen with the help of equipment maintenance tech. Has still not been booked for a colonoscopy, for which she is here. In terms of constipation, that is unchanged. Describes bowel movements as [place] scale 1-2. Takes MiraLax 1 to 2 times a day. Has not been taking bisacodyl on top. Also does not use fiber. Continues to smoke. [facility] Medical History Asymmetric septal hypertrophy Heart block atrioventricular Chronic pain Depression Vascular insufficiency Lichen Hip pain Foot pain Foot callus Cubital tunnel syndrome Chronic vulvovaginitis Carpal tunnel syndrome Burn scar contracture of upper arm Blurring of visual image Mood disorder Hyperlipidemia Renal cyst Hematuria of unknown cause Smoker Arthritis Back pain Diabetes GERD (gastroesophageal reflux disease) Fibromyalgia Anxiety and depression MARK on CPAP Chronic sinusitis Asthma Elevated cholesterol HTN (hypertension) Surgical History Hx of cystoscopy S/P lumpectomy of breast (04/20/21) Hx of colonoscopy Hx of dilation and curettage H/O tubal ligation History of skin graft Family History Father No problems noted. Mother No problems noted. 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 Female Reproductive History Menstrual Age of Menarche: 14 Review of Systems Const All systems reviewed & are unremarkable except as noted in HPI and below Physical Exam Vital Signs: Last Vital Signs Pulse 71 10/03/24 14:57 BP 95/54 L 10/03/24 14:57 BMI result Body Mass Index 39.5 No apparent distress Nonicteric Abdomen soft, nondistended Alert and oriented x3, normal gait Assessment & Plan Assessment & Plan (1) Chronic idiopathic constipation: Code(s): K59.04 - Chronic idiopathic constipation Category: Medical (2) Tubular adenoma: Code(s): D36.9 - Benign neoplasm, unspecified site Category: Medical Plan 1. CIC Again reinforced use of adequate hydration and fiber. Encouraged to take MiraLax daily and add stimulant laxatives such as senna every day. Plan: -if minimal improvement with the above, low threshold to add/replace with Linzess vs Amitiza 2. Hx of polyps Repeat colo to be set up as had poor prep last year. Msg sent to schedulers again. Booked for 11/13. Note made of BMI 39. Pt remembers that will need to hold trulicity and jardiane. Additional bisacodyl 10 mg BID to be taken 2 days prior to colo given baseline constipation. Follow up after colo Medications: New bisacodyl (Dulcolax (bisacodyl)) start 2 days before colonoscopy 10 mg (2 x 5 mg) PO BID 2 days 8 tabs 0RF sennosides (senna) take 2 tabs 30 mins before pharmacy 17.2 mg (2 x 8.6 mg) PO DAILY 90 days 180 tabs 0RF Coding Level of Care Code Est Pt Level 4 (02899) Diagnoses Chronic idiopathic constipation K59.04 Tubular adenoma D36.9
[2024-10-03 14:57] VITALS: BP 95/54; PULSE 71; BMI 39.5
--- OUTSIDE RECORDS SUMMARY | 2024-10-03 17:18 | XMS_ITS | Encounter Summary ---
Author Organization [employer] Address [address] [facility] 7t [place] [address] Care Team Providers Care Terra Cotta Roofer Helper Name Role Phone Pretty Molina MD Primary Care Provide r Guero Burns PharmD Unavailable [phone] Reason for Visit * Reason Comments Pre-visit Planning Pre visit planning L VM Encounter Details Date Type Department Care Team (Late st Contact Info) Description 10/03/2024 Patient Outreach [facility] [address] [place] [address] Pretty Molina MD [address] [place] [address] Pre-visit Planning (Pre visit planning LVM ) Social History Tobacco Use Types Packs/Day Years [...] as of this encounter Progress Notes * Mehnaz Alejandra - 10/03/2024 3:03 PM EDT CC Mehnaz Galarza placed outbound call to patient to complete pre-visit planning. No answer at this time.Patient name and were not confirmed. CC left voicemail requesting return call. Direct contact information provided. documented in this encounter Plan of Treatment Upcoming Encounters Date Type Department Care Team (Late st Contact Info) Description 10/04/2024 11:30 AM EDT Telemedicine [facility] [address] [place] [address] Guero Burns, PoloD [address] [place] [address] 10/10/2024 10:30 AM EDT Office Visit [facility] [address] [place] [address] Pretty Molina MD [address] [place] [address] 12/05/2024 2:00 PM EDT Clinical Support [facility] [address] [place] [address] [phone] Sandra Boyd, RN documented as of this encounter Visit Diagnoses Not on filedocumented in this encounter Additional Health Concerns Assessment Noted Time PHQ-9 Depression Total Score: 4 01/06/20 24 2:22 PM EDT documented as of this encounter Care Teams Terra Cotta Roofer Helper Relationship Specialty Start Date End Date Pretty Molina MD [address] [place] [address] [phone] PCP - General Family Medicine 12/24/20 Guero Burns, PoloD [address] [place] [address] [phone] Pharmacist Internal Medicine 09/20/24 documented as of this encounter
--- OUTSIDE RECORDS SUMMARY | 2024-10-03 17:18 | XMS_ITS | Encounter Summary ---
Author Organization [employer] Address [address] [facility] 7t [place] [address] Care Team Providers Care Fish Net Maker Name Role Phone Pretty Molina MD Primary Care Provide r Guero Burns PharmD Unavailable [phone] Encounter Details Date Type Department Care Team (Latest Contact Info) Description 05/31/2019 Abstract [facility] CONVERSIONS Dental, Provider, DDS Social History [...] Description 10/04/2024 11:30 AM EDT Telemedicine [address] [address] Guero Burns, PharmD [address] [place] [address] 10/10/2024 10:30 AM EDT Office Visit [address] [address] Pretty Molina MD [address] [place] [address] 12/05/2024 2:00 PM EDT Clinical Support [address] [address] Sandra Boyd, RN documented as of this encounter Visit Diagnoses Not on filedocumented in this encounter Care Teams Fish Net Maker Relationship Specialty Start Date End Date Pretty Molina MD [address] [place] [address] PCP - General Family Medicine 12/24/20 Guero Burns, PoloD [address] [place] [address] Pharmacist Internal Medicine 09/20/24 documented as of this encounter
--- OUTSIDE RECORDS SUMMARY | 2024-10-03 17:18 | XMS_ITS | Encounter Summary ---
Author Organization [employer] Address [address] [facility] 7t [place] [address] Care Team Providers Care Branch Assistant Name Role Phone Pretty Molina MD Primary Care Provide r Guero Burns PharmD Unavailable [phone] Encounter Details Date Type Department Care Team (Latest Contact Info) Description 04/21/2020 Abstract [facility] CONVERSIONS Dental, Provider, DDS Social [...] Info) Description 10/04/2024 11:30 AM EDT Telemedicine [facility] MEDICINE [address] [place] [address] Guero Burns, PharmD [address] [place] [address] 10/10/2024 10:30 AM EDT Office Visit [address] [address] Pretty Molina MD [address] [place] [phone] 12/05/2024 2:00 PM EDT Clinical Support [address] [address] Sandra Boyd, RN documented as of this encounter Visit Diagnoses Not on filedocumented in this encounter Care Teams Branch Assistant Relationship Specialty Start Date End Date Pretty Molina MD [address] [place] [address] PCP - General Family Medicine 12/24/20 Guero Burns, PoloD [address] [place] [address] Pharmacist Internal Medicine 09/20/24 documented as of this encounter
--- OUTSIDE RECORDS SUMMARY | 2024-10-03 17:18 | XMS_ITS | Encounter Summary ---
Author Organization [email or web address] Address [address] [facility] 7t [place] [address] Care Team Providers Care Supervisor Sterile Processing Name Role Phone Pretty Molina MD Primary Care Provide r Guero Burns PharmD Unavailable [phone] Encounter Details Date Type Department Care Team (Late st Contact Info) Description 09/01/2022 Orders Only [facility] [address] [place], [place] [phone] Jocelyn Fleming LPN Social History Tobacco Use [...] Info) Description 10/04/2024 11:30 AM EDT Telemedicine [facility] [address] [place] [address] [phone] Guero Burns, PharmD [address] [place], [place] [phone] 10/10/2024 10:30 AM EDT Office Visit [facility] [address] [place] [phone] Pretty Molina MD [address] [place] [address] 12/05/2024 2:00 PM EDT Clinical Support [facility] [address] [place], [place] [phone] Sandra Boyd, TONY documented as of this encounter Visit Diagnoses Not on filedocumented in this encounter Care Teams Supervisor Sterile Processing Relationship Specialty Start Date End Date Pretty Molina MD [address] [place] [address] [phone] PCP - General Family Medicine 12/24/20 Guero Burns, PoloD [address] [place] [address] Pharmacist Internal Medicine 09/20/24 documented as of this encounter
--- OUTSIDE RECORDS SUMMARY | 2024-10-03 17:18 | XMS_ITS | Encounter Summary ---
Author Organization [employer] Address [address] [facility] 7t [place] [address] Care Team Providers Care Etiquette Teacher Name Role Phone Pretty Molina MD Primary Care Provide r Guero Burns PharmD Unavailable [phone] Reason for Visit * Reason Onset Date Comments Med Refill 06/10/2022 Encounter Details Date Type Department Care Team (Late st Contact Info) Description 06/10/2022 Refill [facility] [address] [place] [address] Pretty Molina MD [address] [place] [address] Social History Tobacco Use Types Packs/Day Years [...] Info) Description 10/04/2024 11:30 AM EDT Telemedicine [address] [address] Guero Burns, Mario [address] [place] [address] 10/10/2024 10:30 AM EDT Office Visit [address] [address] Pretty Molina MD [address] [place] [address] 12/05/2024 2:00 PM EDT Clinical Support [address] [address] Sandra Boyd RN documented as of this encounter Visit Diagnoses Not on filedocumented in this encounter Care Teams Etiquette Teacher Relationship Specialty Start Date End Date Pretty Molina MD [address] [place] [address] PCP - General Family Medicine 12/24/20 Guero Burns, PharmD [address] [place] [phone] Pharmacist Internal Medicine 09/20/24 documented as of this encounter
--- OUTSIDE RECORDS SUMMARY | 2024-10-03 17:18 | XMS_ITS | Encounter Summary ---
Author Organization [employer] Address [address] [facility] 7t [place] [address] Care Team Providers Care Fur Mixer Name Role Phone Pretty Molina MD Primary Care Provide r Guero Burns PharmD Unavailable [phone] Reason for Visit * Reason Onset Date Comments Med Refill 10/03/2024 Encounter Details Date Type Department Care Team (Late st Contact Info) Description 10/03/2024 Refill [facility] PEDS [address] [place] [address] Pretty Molina MD [address] [place] [address] Type 2 diabetes mellitus with hyperglycemia, without long-term current use of insulin ([facility]) Social History Tobacco Use Types Packs/Day [...] encounter Miscellaneous Notes * Telephone Encounter - Denise Horton LPN - 10/03/2024 1:37 PM EDT Last seen 06.11.24 documented in this encounter Plan of Treatment Upcoming Encounters Date Type Department Care Team (Late st Contact Info) Description 10/04/2024 11:30 AM EDT Telemedicine [facility] MEDICINE [address] [place] [phone] Guero Burns, PharmD [address] [place] [address] 10/10/2024 10:30 AM EDT Office Visit [facility] [address] [place] [phone] Pretty Molina MD [address] [place] [address] 12/05/2024 2:00 PM EDT Clinical Support [facility] [address] [place] [address] Sandra Boyd RN documented as of this encounter Visit Diagnoses Diagnosis Type 2 diabetes mellitus with hyperglycemia, without long-term current use of insulin ([facility]) documented in this encounter Additional Health Concerns Assessment Noted Time PHQ-9 Depression Total Score: 4 01/06/20 24 2:22 PM EDT documented as of this encounter Care Teams Fur Mixer Relationship Specialty Start Date End Date Pretty Molina MD [address] [place] [phone] PCP - General Family Medicine 12/24/20 Guero Burns, PoloD [address] [place] [phone] Pharmacist Internal Medicine 09/20/24 documented as of this encounter
--- OUTSIDE RECORDS SUMMARY | 2024-10-03 17:18 | XMS_ITS | Encounter Summary ---
Author Organization [employer] Address [address] [facility] 7t [place] [address] Care Team Providers Care Broom Man Name Role Phone Pretty Molina MD Primary Care Provide r Guero Burns PharmD Unavailable [phone] Encounter Details Date Type Department Care Team (Late st Contact Info) Description 07/12/2022 Orders Only [facility] CHC MED & PEDS [address] [place], [place] [phone] Jocelyn Fleming LPN Social History Tobacco Use [...] 10/04/2024 11:30 AM EDT Telemedicine [facility] MEDICINE [address] [place] [address] Guero Burns, PharmD [address] [place] [address] 10/10/2024 10:30 AM EDT Office Visit [facility] MEDICINE [address] [place] [address] Pretty Molina MD [address] [place], [place] [phone] 12/05/2024 2:00 PM EDT Clinical Support [facility] MEDICINE [address] [place] [address] Sandra Boyd, TONY documented as of this encounter Visit Diagnoses Not on filedocumented in this encounter Care Teams Broom Man Relationship Specialty Start Date End Date Pretty Molina MD [address] [place] [address] PCP - General Family Medicine 12/24/20 Guero Burns, PoloD [address] [place] [address] Pharmacist Internal Medicine 09/20/24 documented as of this encounter
--- OUTSIDE RECORDS SUMMARY | 2024-10-03 17:18 | XMS_ITS | Encounter Summary ---
Author Organization [employer] Address [address] [facility] 7t [place] [address] Care Team Providers Care Bingo Cashier Name Role Phone Pretty Molina MD Primary Care Provide r Guero Burns PharmD Unavailable [phone] Reason for Visit * Reason Comments Med Refill Encounter Details Date Type Department Care Team ([facility] st Contact Info) Description 06/06/[address] [facility] CHC MED & PEDS [address] [place] [address] Pretty Molina MD 230 [place] [address] Type 2 diabetes mellitus with hyperglycemia, without long-term current use of insulin ([facility]) Social History Tobacco Use Types [...] Description 10/04/2024 11:30 AM EDT Telemedicine [address] [address] Guero Burns, PoloD [address] [place] [address] 10/10/2024 10:30 AM EDT Office Visit [address] [address] Pretty Molina MD [address] [place] [address] 12/05/2024 2:00 PM EDT Clinical Support [address] [address] Sandra Boyd RN documented as of this encounter Visit Diagnoses Diagnosis Type 2 diabetes mellitus with hyperglycemia, without long-term current use of insulin ([facility]) documented in this encounter Additional Health Concerns Assessment Noted Time PHQ-9 Depression Total Score: 4 01/06/20 2:22 PM EDT documented as of this encounter Care Teams Bingo Cashier Relationship Specialty Start Date End Date Pretty Molina MD [address] [place], [place] [phone] PCP - General Family Medicine 12/24/20 Guero Burns, PoloD 230 [place] [address] Pharmacist Internal Medicine 09/20/24 documented as of this encounter
--- OUTSIDE RECORDS SUMMARY | 2024-10-03 17:18 | XMS_ITS | Encounter Summary ---
Author Organization [employer] Address 75 [facility] 7t [place] [address] Care Team Providers Care Instrument Technician Name Role Phone Pretty Molina MD Primary Care Provide r Guero Burns PharmD Unavailable [phone] Reason for Visit * Reason Comments Med Refill Encounter Details Date Type Department Care Team (Late st Contact Info) Description 09/21/2024 Refill [facility] MEDICINE 230 [place] [address] Pretty Molina MD [address] [place] [address] Type 2 diabetes mellitus with hyperglycemia, without long-term current use of insulin ([facility]) Social History Tobacco Use Types [...] the past 12 months, has t he [employer], gas, oil or water [employer] threatened to shut off services in your [...] Info) Description 10/04/2024 11:30 AM EDT Telemedicine [address] [address] Guero Burns, PoloD [address] [place] [address] 10/10/2024 10:30 AM EDT Office Visit [address] [address] Pretty Molina MD [address] [place] [address] 12/05/2024 2:00 PM EDT Clinical Support [address] [address] Sandra Boyd, RN documented as of this encounter Visit Diagnoses Diagnosis Type 2 diabetes mellitus with hyperglycemia, without long-term current use of insulin ([facility]) documented in this encounter Additional Health Concerns Assessment Noted Time PHQ-9 Depression Total Score: 4 01/06/20 24 2:22 PM EDT documented as of this encounter Care Teams Instrument Technician Relationship Specialty Start Date End Date Pretty Molina MD [address] [place] [address] PCP - General Family Medicine 12/24/20 Guero Burns, PoloD [address] [place] [address] Pharmacist Internal Medicine 09/20/24 documented as of this encounter
--- OUTSIDE RECORDS SUMMARY | 2024-10-03 17:18 | XMS_ITS | Encounter Summary ---
Author Organization [employer] Address 75 [facility] 7t [place] [address] Care Team Providers Care Reinforcing Steel Worker Wire Mesh Name Role Phone Pretty Molina MD Primary Care Provide r Guero Burns PharmD Unavailable [phone] Reason for Visit * Reason Comments Med Refill Encounter Details Date Type Department Care Team (Late st Contact Info) Description 07/01/[address] [facility] MEDICINE [address] [place] [address] Keysha Nagel, YOLETTE 230 [place] [address] Social History Tobacco Use Types Packs/Day Years [...] Info) Description 10/04/2024 11:30 AM EDT Telemedicine [address] [address] Guero Burns, PharmD [address] [place] [address] 10/10/2024 10:30 AM EDT Office Visit [address] [address] Pretty Molina MD [address] [place] [address] 12/05/2024 2:00 PM EDT Clinical Support [address] [address] Sandra Boyd RN documented as of this encounter Visit Diagnoses Not on filedocumented in this encounter Additional Health Concerns Assessment Noted Time PHQ-9 Depression Total Score: 4 01/06/20 24 2:22 PM EDT documented as of this encounter Care Teams Reinforcing Steel Worker Wire Mesh Relationship Specialty Start Date End Date Pretty Molina MD [address] [place] [address] PCP - General Family Medicine 12/24/20 Guero Burns, PoloD [address] [place] [address] Pharmacist Internal Medicine 09/20/24 documented as of this encounter
--- OUTSIDE RECORDS SUMMARY | 2024-10-03 17:18 | XMS_ITS | Encounter Summary ---
Author Organization [employer] Address 75 [facility] 7t [place] [address] Care Team Providers Care Special Agent Name Role Phone Pretty Molina MD Primary Care Provide r Guero Burns PharmD Unavailable [phone] Reason for Visit * Reason Comments Med Refill Encounter Details Date Type Department Care Team (Late st Contact Info) Description 06/11/2022 Refill [facility] MEDICINE 230 [place] [address] Yasmine Hernandez MD 230 [place] [address] Chronic pain syndrome Social History Tobacco Use [...] Cedillo RN - 06/15/2022 10:45 AM EST [employer] Repairer ck 06/15/22. documented in this encounter Plan of Treatment Upcoming Encounters Date Type Department Care Team (Late st Contact Info) Description 10/04/2024 11:30 AM EDT Telemedicine [facility] MEDICINE [address] [place] [address] Guero Burns, PharmD [address] [place] [address] 10/10/2024 10:30 AM EDT Office Visit [address] [address] Pretty Molina MD [address] [place] [address] 12/05/2024 2:00 PM EDT Clinical Support [address] [address] Sandra Boyd RN documented as of this encounter Visit Diagnoses Diagnosis Chronic pain syndrome documented in this encounter Care Teams Special Agent Relationship Specialty Start Date End Date Pretty Molina MD [address] [place] [address] PCP - General Family Medicine 12/24/20 Guero Burns, PharmD [address] [place] [address] Pharmacist Internal Medicine 09/20/24 documented as of this encounter
--- OUTSIDE RECORDS SUMMARY | 2024-10-03 17:18 | XMS_ITS | Encounter Summary ---
Author Organization [employer] Address [address] [facility] 7t [place] [address] Care Team Providers Care Manager Urology Name Role Phone Pretty Molina MD Primary Care Provide r Guero Burns PharmD Unavailable [phone] Encounter Details Date Type Department Care Team (Latest Contact Info) Description 2019 Abstract [facility] CONVERSIONS Dental, Provider, DDS Social History [...] Description 10/04/2024 11:30 AM EDT Telemedicine [address] [address] Guero Burns, PharmD 230 [place] [address] 10/10/2024 10:30 AM EDT Office Visit [address] [address] Pretty Molina MD [address] [place] [address] 12/05/2024 2:00 PM EDT Clinical Support [address] [address] Sandra Boyd, RN documented as of this encounter Visit Diagnoses Not on filedocumented in this encounter Care Teams Manager Urology Relationship Specialty Start Date End Date Pretty Molina MD 230 [place] [address] PCP - General Family Medicine 12/24/20 Guero Burns, PoloD [address] [place] [address] Pharmacist Internal Medicine 09/20/24 documented as of this encounter
--- OUTSIDE RECORDS SUMMARY | 2024-10-03 17:18 | XMS_ITS | Encounter Summary ---
Author Organization [employer] Address 75 [facility] 7t [place] [address] Care Team Providers Care Employee Training Specialist Name Role Phone Pretty Molina MD Primary Care Provide r Guero Burns PharmD Unavailable [phone] Reason for Visit * Reason Onset Date Comments Med Refill 10/03/2024 Encounter Details Date Type Department Care Team (Late st Contact Info) Description 10/03/2024 Refill [facility] CHC MED & PEDS [address] [place] [address] Pretty Molina MD 230 [place] [address] Other chronic pain Social History Tobacco Use [...] as of this encounter Miscellaneous Notes * Addendum Note - Bing Golden RN - 10/03/2024 2:31 PM EDTAddended by: BING GOLDEN on: 10/03/2024 02:31 PM Modules accepted: Orders * Telephone Encounter - Denise Horton LPN - 10/03/2024 1:38 PM EDT Received request on oxyCODONE-acetaminophen (Percocet) 5-325 MG tablet documented in this encounter Plan of Treatment Upcoming Encounters Date Type Department Care Team (Late st Contact Info) Description 10/04/2024 11:30 AM EDT Telemedicine [facility] MEDICINE 230 [place], [place] [phone] Guero Burns, PharmD 230 [place], [place] [phone] 10/10/2024 10:30 AM EDT Office Visit [address] [address] Pretty Molina MD [address] [place] [address] 12/05/2024 2:00 PM EDT Clinical Support [address] [address] Sandra Boyd, TONY documented as of this encounter Visit Diagnoses Diagnosis Other chronic pain documented in this encounter Additional Health Concerns Assessment Noted Time PHQ-9 Depression Total Score: 4 01/06/20 24 2:22 PM EDT documented as of this encounter Care Teams Employee Training Specialist Relationship Specialty Start Date End Date Pretty Molina MD [address] [place] [address] PCP - General Family Medicine 12/24/20 Guero Burns, PharmD [address] [place] [address] Pharmacist Internal Medicine 09/20/24 documented as of this encounter
--- OUTSIDE RECORDS SUMMARY | 2024-10-03 17:18 | XMS_ITS | Encounter Summary ---
Author Organization [employer] Address 75 [facility] 7t [place] [address] Care Team Providers Care Auxiliary Operator Name Role Phone Pretty Molina MD Primary Care Provide r Guero Burns PharmD Unavailable [phone] Encounter Details Date Type Department Care Team (Late st Contact Info) Description 07/01/2022 Orders Only [facility] MEDICINE [address] [place] [address] Marti Cedillo RN Chronically on opiate therapy [...] Info) Description 10/04/2024 11:30 AM EDT Telemedicine [facility] MEDICINE [address] [place] [address] Guero Burns, PharmD 230 [place] [address] 10/10/2024 10:30 AM EDT Office Visit [facility] MEDICINE [address] [place] [address] Pretty Molina MD 230 [place], [place] [phone] 12/05/2024 2:00 PM EDT Clinical Support [facility] MEDICINE 230 [place] [address] Sandra Boyd RN documented as of this encounter Visit Diagnoses Diagnosis Chronically on opiate therapy- Primary documented in this encounter Care Teams Auxiliary Operator Relationship Specialty Start Date End Date Pretty Molina MD [address] [place] [address] PCP - General Family Medicine 12/24/20 Guero Burns, PoloD [address] [place] [address] Pharmacist Internal Medicine 09/20/24 documented as of this encounter
--- OUTSIDE RECORDS SUMMARY | 2024-10-03 17:19 | XMS_ITS | Encounter Summary ---
Author Organization [employer] Address 75 [facility] 7t [place] [address] Care Team Providers Care Medical Radiation Dosimetrist Name Role Phone Pretty Molina MD Primary Care Provide r Guero Burns PharmD Unavailable [phone] Reason for Visit * Reason Comments Med Refill Encounter Details Date Type Department Care Team ([facility] st Contact Info) Description 05/12/2023 Refill [facility] CHC MED & PEDS [address] [place] [address] Pretty Molina MD 230 [place] [address] Neuropathy Social History Tobacco Use Types Packs/Day [...] Info) Description 10/04/2024 11:30 AM EDT Telemedicine [address] [address] Guero Burns PharmD [address] [place] [address] 10/10/2024 10:30 AM EDT Office Visit [address] [address] Pretty Molina MD [address] [place] [address] 12/05/2024 2:00 PM EDT Clinical Support [address] [address] Sandra Boyd RN documented as of this encounter Visit Diagnoses Diagnosis Neuropathy Mononeuritis of unspecified site documented in this encounter Additional Health Concerns Assessment Noted Time PHQ-9 Depression Total Score: 12 023 3:08 PM EDT documented as of this encounter Care Teams Medical Radiation Dosimetrist Relationship Specialty Start Date End Date Pretty Molina MD [address] [place] [address] PCP - General Family Medicine 12/24/20 Guero Burns, PoloD [address] [place] [address] Pharmacist Internal Medicine 09/20/24 documented as of this encounter
--- OUTSIDE RECORDS SUMMARY | 2024-10-03 17:19 | XMS_ITS | Encounter Summary ---
Author Organization [employer] Address 75 [facility] 7t [place] [address] Care Team Providers Care Photographer'S Assistant Name Role Phone Pretty Molina MD Primary Care Provide r Guero Burns PharmD Unavailable [phone] Reason for Visit * Reason Comments Med Refill Encounter Details Date Type Department Care Team (Late st Contact Info) Description 07/05/2023 Refill [facility] CHC MED & PEDS [address] [place] [address] Pretty Molina MD 230 [place] [address] Social History Tobacco Use Types Packs/Day Years [...] Info) Description 10/04/2024 11:30 AM EDT Telemedicine [address] [address] Guero Burns, Mario [address] [place] [address] 10/10/2024 10:30 AM EDT Office Visit [address] [address] Pretty Molina MD [address] [place] [address] 12/05/2024 2:00 PM EDT Clinical Support [address] [address] Sandra Boyd RN documented as of this encounter Visit Diagnoses Not on filedocumented in this encounter Additional Health Concerns Assessment Noted Time PHQ-9 Depression Total Score: 12 023 3:08 PM EDT documented as of this encounter Care Teams Photographer'S Assistant Relationship Specialty Start Date End Date Pretty Molina MD [address] [place] [address] PCP - General Family Medicine 12/24/20 Guero Burns, PharmD [address] [place] [phone] Pharmacist Internal Medicine 09/20/24 documented as of this encounter
--- OUTSIDE RECORDS SUMMARY | 2024-10-03 17:19 | XMS_ITS | Encounter Summary ---
Author Organization [employer] Address 75 [facility] 7t [place] [address] Care Team Providers Care Honing Machine Try Out Setter Name Role Phone Pretty Molina MD Primary Care Provide r Guero Burns PharmD Unavailable [phone] Reason for Visit * Reason Comments Med Refill Encounter Details Date Type Department Care Team (Late st Contact Info) Description 04/05/2024 Refill [facility] MEDICINE [address] [place] [address] Pretty Molina MD 230 [place] [address] Other chronic pain Social History Tobacco Use [...] Info) Description 10/04/2024 11:30 AM EDT Telemedicine [address] [address] Guero Burns, PharmD [address] [place] [address] 10/10/2024 10:30 AM EDT Office Visit [address] [address] Pretty Molina MD [address] [place] [address] 12/05/2024 2:00 PM EDT Clinical Support [address] [address] Sandra Boyd RN documented as of this encounter Visit Diagnoses Diagnosis Other chronic pain documented in this encounter Additional Health Concerns Assessment Noted Time PHQ-9 Depression Total Score: 4 01/06/20 24 2:22 PM EDT documented as of this encounter Care Teams Honing Machine Try Out Setter Relationship Specialty Start Date End Date Pretty Molina MD [address] [place] [address] PCP - General Family Medicine 12/24/20 Guero Burns, PoloD [address] [place] [address] Pharmacist Internal Medicine 09/20/24 documented as of this encounter
--- OUTSIDE RECORDS SUMMARY | 2024-10-03 17:19 | XMS_ITS | Encounter Summary ---
Author Organization [employer] Address 75 [facility] 7t [place] [address] Care Team Providers Care Hospital Monitor Name Role Phone Pretty Molina MD Primary Care Provide r Guero Burns PharmD Unavailable [phone] Reason for Visit * Reason Comments Med Refill Encounter Details Date Type Department Care Team (Late st Contact Info) Description 05/10/2023 Refill [facility] MEDICINE 230 [place] [address] Pretty Molina MD 230 [place], [place] [phone] Other chronic pain Social History Tobacco Use [...] Info) Description 10/04/2024 11:30 AM EDT Telemedicine [address] [address] Guero Burns, Mario [address] [place] [address] 10/10/2024 10:30 AM EDT Office Visit [address] [address] Pretty Molina MD [address] [place] [address] 12/05/2024 2:00 PM EDT Clinical Support [address] [address] Sandra Boyd RN documented as of this encounter Visit Diagnoses Diagnosis Other chronic pain documented in this encounter Additional Health Concerns Assessment Noted Time PHQ-9 Depression Total Score: 12 023 3:08 PM EDT documented as of this encounter Care Teams Hospital Monitor Relationship Specialty Start Date End Date Pretty Molina MD [address] [place] [address] PCP - General Family Medicine 12/24/20 Guero Burns, PharmD [address] [place] [address] Pharmacist Internal Medicine 09/20/24 documented as of this encounter
--- OUTSIDE RECORDS SUMMARY | 2024-10-03 17:19 | XMS_ITS | Encounter Summary ---
Author Organization [employer] Address 75 [facility] 7t [place] [address] Care Team Providers Care Cuff Setter Name Role Phone Pretty Molina MD Primary Care Provide r Guero Burns PharmD Unavailable [phone] Reason for Visit * Reason Comments Med Refill Encounter Details Date Type Department Care Team (Late st Contact Info) Description 03/30/2023 Refill [facility] MEDICINE [address] [place] [address] Pretty Molina MD 230 [place] [address] Other chronic pain Social History Tobacco Use [...] Info) Description 10/04/2024 11:30 AM EDT Telemedicine [address] [address] Guero Burns, Mario [address] [place] [address] 10/10/2024 10:30 AM EDT Office Visit [address] [address] Pretty Molina MD [address] [place] [address] 12/05/2024 2:00 PM EDT Clinical Support [address] [address] Sandra Boyd RN documented as of this encounter Visit Diagnoses Diagnosis Other chronic pain documented in this encounter Additional Health Concerns Assessment Noted Time PHQ-9 Depression Total Score: 12 023 3:08 PM EDT documented as of this encounter Care Teams Cuff Setter Relationship Specialty Start Date End Date Pretty Molina MD [address] [place] [address] PCP - General Family Medicine 12/24/20 Guero Burns, PharmD [address] [place] [address] Pharmacist Internal Medicine 09/20/24 documented as of this encounter
--- OUTSIDE RECORDS SUMMARY | 2024-10-03 17:19 | XMS_ITS | Encounter Summary ---
Author Organization [employer] Address 75 [facility] 7t [place] [address] Care Team Providers Care Enterostomal Therapy Nurse Name Role Phone Pretty Molina MD Primary Care Provide r Guero Burns PharmD Unavailable [phone] Reason for Visit * Reason Comments Med Refill Encounter Details Date Type Department Care Team (Late st Contact Info) Description 12/06/2023 Refill [facility] MEDICINE 230 [place] [address] Pretty Molina MD 230 [place], [place] [phone] Other chronic pain Social History Tobacco Use [...] Description 10/04/2024 11:30 AM EDT Telemedicine [address] [address] Guero uBrns, PoloD [address] [place] [address] 10/10/2024 10:30 AM EDT Office Visit [address] [address] Pretty Molina MD [address] [place] [address] 12/05/2024 2:00 PM EDT Clinical Support [address] [address] Sandra Boyd RN documented as of this encounter Visit Diagnoses Diagnosis Other chronic pain documented in this encounter Additional Health Concerns Assessment Noted Time PHQ-9 Depression Total Score: 12 023 3:08 PM EDT documented as of this encounter Care Teams Enterostomal Therapy Nurse Relationship Specialty Start Date End Date Pretty Molina MD [address] [place] [address] PCP - General Family Medicine 12/24/20 Guero Burns, PharmD [address] [place] [address] Pharmacist Internal Medicine 09/20/24 documented as of this encounter
--- OUTSIDE RECORDS SUMMARY | 2024-10-03 17:19 | XMS_ITS | Clinical Summary ---
Author Organization [facility] Address [address] [place] [address] Phone Care Team Providers Care Web Press Jogger Name Role Phone Pretty Molina MD Primary [...] by mouth 2 times daily. Active ceramide 1,3,0-DP-iwsf-hyal ur (CeraVe PM) lotion,extended release Apply topically. [...] 2 times daily. Active miscellaneous medical supply [facility] by Does not apply route. Active NICOTINE, [...] testing completed and was unremarkable Morbid obesity ([facility], [facility] V28) 2018 Type 2 diabetes mellitus ([facility], [facility] V 28) 01/23/2019 Surgical History Surgery Date Site/Laterality Comments TUBAL LIGATION PROCEDURE: HISTORICAL TUBAL LIGATION OTHER SURGICAL HISTORY PROCEDURE: DC GRAFT COMPOSITE W/PRIMARY CLOSURE DONOR AREA Medical History Medical History Date Comments HTN (hypertension) DX:HTN (hyper tension) Depression DX:Depression Chronic pain DX:Chronic pain Obesity DX:Obesity 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[facility] V[facility], [facility] V28) DX:Microalbuminuric diabeti c nephropathy ([facility]) Hyperlipidemia DX:Hyperlipidemi a Carpal tunnel syndrome, bilateral DX:Carpal tunnel syndrome, bilateral Type 2 diabetes mellitus ( S/[facility] V24, [facility] V28) DX:Type 2 diabetes mellitus ([facility]) IBS (irritable bowel syndrome) D X:IBS (irritable [...] * Annual BMP Blood Test (01/10/2024) Pathologist [facility] Annual BMP Blood Test abstracted [facility] Provider HEALTH MAINTENANCE Final Result * Lipid panel (01/10/2024) [facility] Triglycerides 0 mg/dL Comment:no interpretation Cholesterol 0 mg/dL Comment:no interpretation HDL 0 mg/dL Comment:no interpretation LDL Cholesterol 0 mg/dL Comment:no interpretation Blood Venous blood specimen / Unknown [facility] Provider LAB BLOOD ORDERABLES Teresa l Result * Cervical Cancer Screening: HPV (04/18/2023) [facility] Cervical Cancer Screening: HPV No interpreta tion,abstr acted [facility] Provider [facility] Final Result * Hemoglobin A1c (07/20/2021) [facility] Hemoglobin A1C 0.0 % Comment:no interpretation Blood Venous blood specimen / Unknown [facility] Provider LAB BLOOD ORDERABLES Teresa l Result from Last 3 Months or Most Recently Relevant to Health Maintenance Insurance [place] Care Teams Web Press Jogger Relationship Specialty Start Date End Date Pretty Molina MD [address] [place] [phone] PCP - General 06/01/23
--- OUTSIDE RECORDS SUMMARY | 2024-10-03 17:19 | XMS_ITS | Encounter Summary ---
Author Organization [employer] Address [address] [facility] [address]t [place] [address] Care Team Providers Care Steamfitter Supervisor Name Role Phone Pretty Molina MD Primary Care Provide r Guero Burns PharmD Unavailable [phone] Reason for Visit * Reason Comments Med Refill Encounter Details Date Type Department Care Team (Late st Contact Info) Description 02/28/2023 Refill [facility] MEDICINE [address] [place] [address] Pretty Molina MD [address] [place] [address] Social History Tobacco Use Types Packs/Day Years [...] Info) Description 10/04/2024 11:30 AM EDT Telemedicine [facility] [address] [place], [place] [phone] Guero Burns, PharmD [address] [place] [address] 10/10/2024 10:30 AM EDT Office Visit [address] [phone] Pretty Molina MD [address] [place] [phone] 12/05/2024 2:00 PM EDT Clinical Support [address] [address] Sandra Boyd, TONY documented as of this encounter Visit Diagnoses Not on filedocumented in this encounter Additional Health Concerns Assessment Noted Time PHQ-9 Depression Total Score: 12 023 3:08 PM EDT documented as of this encounter Care Teams Steamfitter Supervisor Relationship Specialty Start Date End Date Pretty Molina MD [address] [place] [phone] PCP - General Family Medicine 12/24/20 Guero Burns, PoloD [address] [place] [address] [phone] Pharmacist Internal Medicine 09/20/24 documented as of this encounter
--- OUTSIDE RECORDS SUMMARY | 2024-10-03 17:19 | XMS_ITS | Encounter Summary ---
Author Organization [email or web address] Address [address] [facility] 7t [place] [address] Care Team Providers Care Bankruptcy Judge Name Role Phone Pretty Molina MD Primary Care Provide r Guero Burns PharmD Unavailable [phone] Reason for Visit * Reason Comments Med Refill Encounter Details Date Type Department Care Team (Late st Contact Info) Description 11/24/2022 Refill [facility] [address] [place] [address] Eliezer Richardson DDS [address] [place] [address] Social History Tobacco Use Types Packs/Day Years [...] Info) Description 10/04/2024 11:30 AM EDT Telemedicine [address] [phone] Guero Burns, PharmD [address] [place] [phone] 10/10/2024 10:30 AM EDT Office Visit [address] [phone] Pretty Molina MD [address] [place] [address] [phone] 12/05/2024 2:00 PM EDT Clinical Support [address] [phone] Sandra Boyd, TONY documented as of this encounter Visit Diagnoses Not on filedocumented in this encounter Additional Health Concerns Assessment Noted Time PHQ-9 Depression Total Score: 12 023 3:08 PM EDT documented as of this encounter Care Teams Bankruptcy Judge Relationship Specialty Start Date End Date Pretty Molina MD [address] [place] [address] [phone] PCP - General Family Medicine 12/24/20 Guero Burns, PharmD [address] [place] [address] [phone] Pharmacist Internal Medicine 09/20/24 documented as of this encounter
--- OUTSIDE RECORDS SUMMARY | 2024-10-03 17:19 | XMS_ITS | Encounter Summary ---
Author Organization [employer] Address 75 [facility] 7t [place] [address] Care Team Providers Care Hybrid Technologist Name Role Phone Pretty Molina MD Primary Care Provide r Guero Burns PharmD Unavailable Reason for Visit * Reason Onset Date Comments Med Refill 01/05/2023 Encounter Details Date Type Department Care Team (Late st Contact Info) Description 01/05/2023 Telephone [facility] MEDICINE [address] [place] [address] Pretty Molina MD [address] [place] [address] Med Refill Social History Tobacco Use Types [...] Info) Description 10/04/2024 11:30 AM EDT Telemedicine [address] [address] Guero Burns, Mario [address] [place] [phone] 10/10/2024 10:30 AM EDT Office Visit [address] [phone] Pretty Molina MD [address] [place] [phone] 12/05/2024 2:00 PM EDT Clinical Support [address] [phone] Sandra Boyd, TONY documented as of this encounter Visit Diagnoses Not on filedocumented in this encounter Additional Health Concerns Assessment Noted Time PHQ-9 Depression Total Score: 12 023 3:08 PM EDT documented as of this encounter Care Teams Hybrid Technologist Relationship Specialty Start Date End Date Pretty Molina MD [address] [place] [address] [phone] PCP - General Family Medicine 12/24/20 Guero Burns, PharmD [address] [place] [address] [phone] Pharmacist Internal Medicine 09/20/24 documented as of this encounter
--- OUTSIDE RECORDS SUMMARY | 2024-10-03 17:19 | XMS_ITS | Encounter Summary ---
Author Organization [email or web address] Address 75 [facility] 7t [place] [address] Care Team Providers Care Summer School Coordinator Name Role Phone Pretty Molina MD Primary Care Provide r Guero Burns PharmD Unavailable [phone] Encounter Details Date Type Department Care Team (Late st Contact Info) Description 11/12/2022 Orders Only [facility] [address] [place], [place] [phone] Jocelyn Fleming LPN Social History Tobacco Use [...] 10/04/2024 11:30 AM EDT Telemedicine [facility] MEDICINE [address] [place] [address] Guero Burns, PharmD [address] [place], [place] [phone] 10/10/2024 10:30 AM EDT Office Visit [facility] MED[facility]INE [address] [place], [place] [phone] Pretty Molina MD [address] [place] [address] 12/05/2024 2:00 PM EDT Clinical Support [facility] MEDICINE [address] [place] [address] Sandra Boyd, RN documented as of this encounter Visit Diagnoses Not on filedocumented in this encounter Care Teams Summer School Coordinator Relationship Specialty Start Date End Date Pretty Molina MD [address] [place] [address] PCP - General Family Medicine 12/24/20 Guero Burns, PoloD [address] [place] [phone] Pharmacist Internal Medicine 09/20/24 documented as of this encounter
--- OUTSIDE RECORDS SUMMARY | 2024-10-03 17:19 | XMS_ITS | Clinical Summary ---
Author Organization [employer] Address [address] [facility] 7t [place] [address] Care Team Providers Care Corporate Intern Name Role Phone Pretty Molina MD Primary Care Provide r Guero Burns PharmD Unavailable [phone] Allergies Active Allergy Reactions Criticality Noted Date [...] current use of insulin ([facility]) 1 kit 2 times daily. [...] unspecified whether bed bug exterminator insulin use ([facility]) TAKE 1 TABLET BY MOUTH [...] THREE TIMES DAILY 100 each 025 Active NIFEdipine XL (Procardia XL) 60 MG 24 hr tabletIndication s:Essential hypertension TAKE 1 TABLET BY MOUTH EVERYDAY AT NOON 90 tablet 3 Active albuterol (Ventolin HFA) 108 (90 Base) MCG/ACT inhaler INHALE 2 PUFFS BY MOUTH EVERY 4 TO 6 HOURS NEEDED 18 g 3 025 Active gabapentin (Neurontin) 300 MG capsuleIndicatio ns:Neuropathy TAKE 2 CAPSULES BY MOUTH THREE TIMES DAILY IN THE MORNING, EVENING AND BEDTIME 180 capsule 1 025 Active Diclofenac Sodium 1 % gelIndications:F ibromyalgia Apply 1 Application topically 2 times daily. APPLY 2 GRAMS TOPICALLY TO AFFECTED AREA(S) EVERY TWELVE HOURS NEEDED 100 g 1 025 Active ammonium lactate (Lac-Hydrin) 12 % lotion APPLY TO LA PLANTA DEL PIE cada dmitriy EN LA NOCHE UTILIZA MEDIAS PARA DORMIR Active carvedilol (Coreg) 6.25 MG tablet TAKE 1 TABLET BY MOUTH TWICE DAILY IN THE MORNING AND IN THE EVENING Active DULoxetine (Cymbalta) [address] capsule TAKE 1 CAPSULE BY MOUTH EVERY EVENING WITH 60 MG CAPSULE Active DULoxetine (Cymbalta) [address] capsule Take 60 mg by mouth in the morning. Active ezetimibe (Zetia) 10 MG tablet Take 1 tablet by mouth Once per day. Active hydrOXYzine pamoate (Vistaril) 25 MG capsule TAKE 1 TO 2 CAPSULES BY MOUTH EVERY DAY AT BEDTIME NEEDED Active ketoconazole (NIZOral) 2 % shampoo APPLY TO DRY SCALP 10 MINUTES BEFORE SHOWER. RINSE AND CLEAN HAIR 1-2 TIMES WEEKLY Active Myrbetriq 50 MG 24 hr tablet Take 50 mg by mouth in the morning. 025 Active mometasone (Elocon) 0.1 % lotion APPLY [...] needed for smoking cessation. 144 lozenge 1 Active glipiZIDE (Glucotrol) 10 MG tabletIndication s:Diabetes mellitus type 2 in nonobese (CMS/HCC) TAKE 1 TABLET BY MOUTH EVERY MORNING BEFORE BREAKFAST 90 tablet 3 Active losartan (Cozaar) 100 MG tabletIndication s:Primary hypertension TAKE 1 TABLET BY MOUTH EVERY MORNING 90 tablet 3 025 Active cetirizine (ZyrTEC) 10 MG tabletIndication s:Seasonal allergies Take 1 tablet (10 mg) by mouth in the morning. 90 tablet Active Dulaglutide (Trulicity) 1.5 MG/0.5ML solution auto-injectorInd ications:Type 2 diabetes mellitus with hyperglycemia, without long-term current use of insulin (CMS/HCC) Inject 1.5 mg under the skin 1 (one) time per week. INJECT ONE PEN (=1.5MG) SUBCUTANEOUSLY ONCE A WEEK DIRECTED 2 mL 1 Active oxyCODONE-acetam inophen (Percocet) 5-325 MG tabletIndication s:Other chronic pain Take 1 tablet by mouth every 12 (twelve) hours if needed for severe pain. 56 tablet Active Proventil HFA 108 (90 Base) [...] current use of insulin ([facility]) Inject 1.5 mg under the skin 1 (one) time per week. 4 pen 11 023 2024 Discontinued RSV Pre-Fusion F A&B Vac Rcmb (Abrysvo) 120 MCG/0.5ML reconstituted solutionIndicati ons:Type 2 diabetes mellitus with hyperglycemia, without long-term current use of insulin ([facility]) Inject 1 each into the [...] tabletIndication s:Diabetes mellitus type 2 in nonobese ([facility]) TAKE 1 TABLET BY MOUTH EVERY MORNING BEFORE BREAKFAST 90 tablet 3 024 2024 Discontinued nicotine polacrilex (Nicotine Mini) 2 MG lozengeIndicatio ns:Tobacco dependence Dissolve 1 lozenge (2 mg) in the mouth if needed for smoking cessation. 100 lozenge 024 2024 Discontinued(M ed list cleanup (will not trigger notification to Pharmacy)) cetirizine (ZyrTEC) 10 MG tabletIndication s:Seasonal allergies TAKE 1 TABLET BY MOUTH EVERY MORNING 90 tablet 025 2024 Discontinued(R eorder (will not trigger notification to Pharmacy)) Trulicity 1.5 MG/0.5ML solution auto-injectorInd ications:Type 2 diabetes mellitus with hyperglycemia, without long-term current use of insulin ([facility]) INJECT ONE PEN (=1.5MG) SUBCUTANEOUSLY ONCE A WEEK DIRECTED 2 mL 1 025 2024 Discontinued(R eorder (will not trigger notification to Pharmacy)) oxyCODONE-acetam inophen (Percocet) 5-325 MG tabletIndication s:Other chronic pain TAKE 1 TABLET BY MOUTH EVERY TWELVE HOURS NEEDED FOR SEVERE PAIN 56 tablet 025 2024 Discontinued(R eorder (will [...] Encounters Date Type Department Care Team Description 10/03/2024 Patient Outreach [facility] MEDICINE [address] [place] [address] Pretty Molina MD Pre-visit Planning (Pre visit planning LVM ) 10/03/2024 Refill [facility] [address] [place] [address] Pretty Molina MD Other chronic pain 10/03/2024 Refill [facility] [address] [place] [address] Pretty Molina MD Type 2 diabetes mellitus with hyperglycemia, without long-term current use of insulin (CMS/HCC) 09/21/2024 Refill [facility] MEDICINE [address] [place] [address] Pretty Molina MD Type 2 diabetes mellitus with hyperglycemia, without long-term current use of insulin (CMS/HCC) 09/17/2024 1:30 PM EDT Telemedicine [facility] MED[facility]INE [address] [place] [address] Guero Burns, PharmD Tobacco dependence (Primary Dx) 09/17/2024 Travel 09/16/2024 Refill [facility] [address] [place] [address] Pretty Molina MD Diabetes mellitus type 2 in nonobese (CMS/[facility]); Primary hypertension; Seasonal allergies 09/13/2024 Patient Outreach [facility] [address] [place] [address] Pretty Molina MD Care Coordination (SDOH f/u) 09/11/2024 Travel 09/03/2024 Refill [facility] [address] [place] [address] Pretty Molina MD Fibromyalgia 08/31/2024 Refill [facility] [address] [place] [address] Pretty Molina MD Other chronic pain 08/31/2024 Patient Outreach [facility] [address] [place] [address] Pretty Molina MD Care Coordination (SDOH) 08/24/2024 Population Health Risk Score Community [facility] () Department [address] [place] [phone] Provider, Population Health Generic 08/19/2024 Refill [facility] MED[facility]INE [address] [place] [address] Pretty Molina MD [facility] 08/17/2024 Refill [facility] [address] [place] [address] Pretty Molina MD 08/16/2024 Patient Outreach [facility] [address] [place] [address] Pretty Molina MD Care Coordination (SDOH) 08/16/2024 Orders Only GENERIC EXTERNAL DATA DEPARTMENT Provider, Generic External Data 08/15/2024 Refill [facility] [address] [place] [address] Pretty Molina MD Essential hypertension 08/09/2024 Patient Outreach [facility] [address] [place] [address] Pretty Molina MD Care Coordination (SDOH f/u) 08/06/2024 Refill [facility] [address] [place] [address] Pretty Molina MD Other chronic pain 08/02/2024 Patient Outreach [facility] [address] [place] [address] Pretty Molina MD Care Coordination (SDOH) 08/02/2024 Patient Outreach [facility] MED[facility]INE [address] [place] [address] Pretty Molina MD Care Coordination (SDOH) 07/30/2024 Refill [facility] [address] [place] [address] Pretty Molina MD Type 2 diabetes mellitus with hyperglycemia, without long-term current use of insulin ([facility]) 07/27/2024 Patient Outreach [facility]INE [address] [place] [address] Pretty Molina MD Care Coordination (SDOH) 07/27/2024 Refill [facility] MED[facility] [address] [place] [address] Pretty Molina MD 07/20/2024 Orders Only GENERIC EXTERNAL DATA DEPARTMENT Provider, Generic External Data 07/19/2024 Refill [facility] MED[facility]INE [address] [place] [address] Pretty Molina MD 07/18/2024 Orders Only GENERIC EXTERNAL DATA DEPARTMENT Provider, Generic External Data 07/18/2024 Refill [facility] MED[facility]INE [address] [place] [address] Pretty Molina MD Dry eye syndrome of bilateral lacrimal glands 07/09/2024 Refill [facility] [address] [place], [place] [phone] Pretty Molina MD Other chronic pain from [...] Description 10/04/2024 11:30 AM EDT Telemedicine [facility] [address] [place] [address] Guero Burns, PharmD [address] [place] [address] 10/10/2024 10:30 AM EDT Office Visit [facility] MED[facility]INE [address] [place] [address] Pretty Molina MD [address] [place], [place] [phone] 12/05/2024 2:00 PM EDT Clinical Support [facility]INE [address] [place] [address] Sandra Boyd, RN Health Maintenance Due Date Last Done Comments CT Colonography 1960 Colonoscopy 1961 Colorectal Cancer Screening 1961 FIT DNA/Cologuard 1961 FIT 1961 FOBT 1961 Sigmoidoscopy 1961 Diabetes: Foot Exam 1971 Eye Exam 1971 Alcohol/Substance Use Screening 1973 Pneumococcal Vaccine: 50+ Years (1 of 2 - PCV) 1980 Lung Cancer Screening 2011 COVID-19 Vaccine ( season) 2024 10/30/2020, 10/02/2020 Diabetes: Hemoglobin A1C 10/04/202404/05/ 024, 01/06/2024, 05/30/2023, Additional history exists SDOH Screening 12/27/2024 12/28/2023 Depression Screening 01/05/2025 01/06/2024, 01/06/20 24 Mammogram 07/25/2025 07/25/2024, 1009/2022, 03/10/2022, Additional history exists Lipid Panel 08/16/2025 08/16/2024, 12/13, 10/11/2022, Additional history exists Tobacco Screening 09/14/2025 09/14/2024 DTaP/Tdap/Td Vaccines (2 - Td or Tdap) 04/15/2026 04/15/2016 Cervical Cancer Screening 04/18/2028 HPV/Cotest 04/18/2028 04/18/2023, 04/19/2018 Pap Smear 04/18/2028 04/18/2023 Hepatitis B Vaccines Completed 08/26/2016, 05/27/2016, 04/27/2016 [...] current use of insulin ([facility]/HCC) HPV MRNA E6/E7 REFLEX TO HPV 16, [...] 1 AM EST 08/16/2024 1:11 PM EST [facility] - 08/17/2024 4:59 PM EST ----- ------- Name: Violet Pascal ? Age/Sex: 64/F ? : 1960 Unit#: [id number] ?? Attend Dr: Ramesh Gurrola MD ?Re08/16/24 ?Status: DEP SD ? Location: HO.SSS ?Disch: ? ----- ------- SPEC : [id number] ? RECD: 08/16/24 ? STATUS: ??SOUT ? REQ NUM: [id number] ? YASMINE: 08/16/24-1120 ? SUBM DR: Ramesh [...] microscopic examination, multiple pieces in cassette A. ??([facility]) Copies To: ?? Pretty Molina MD ?? [facility] ?? [address] ?? [place] [address] ?? [phone] ?? Ramesh Gurrola MD ?? [facility] ?? [address] [facility] [address] ?? [place] [address] ?? [phone] ? CONTINUED ON NEXT PAGE ----- ------- Name: Violet Pascal ? Age/Sex: 64/F ? : 1960 Unit#: [id number] ?? Attend Dr: Ramesh Gurrola MD ?Re08/16/24 ?Status: DEP SDC ? Location: HO.SSS ?Disch: ? ----- ------- SPEC : [id number] ? RECD: 08/16/24-1310 ? STATUS: ??SOUT ? REQ NUM: [id number] ? YASMINE: 08/16/24-1 ? SUBM DR: Ramesh Gurrola MD ? ENTERED: ??08/16/24-1314 ?SP TYPE: Surgical ? OTHR DR: Pretty Molina MD ? ORDERED: ??HE Stain/2, Gross Micro L4 ? ----- ------- Signed (signature on file) Wally Harding MD 08/17/24 8369 ? ----- ------- ? END OF REPORT ? us Generic External Data Provider LAB BLOOD ORDERAB LES Final Result [facility] [address] [place] [address] [phone] * (ABNORMAL) Glucose, Whole Blood (08/16/2024 10:29 AM EST) Glucose, Whole Blood 150(H) 60 - 115 mg/dL [facility] Comment:METER #: [id number] 08/16/2024 10:2 9 AM EST 08/16/2024 10:33 AM EST us Generic External Data Provider LAB BLOOD ORDERAB LES Final Result Performing Organization Address [facility] Co de Phone Number [facility] [address] [place] [phone] * Lipid Panel, Standard (08/16/2024 9:01 AM EST) Triglycerides 106 <150 mg/dL [facility] Comment:Desirable Triglyceri de: less than 150 mg/dLBorderline High Triglyceride 150-199 mg/dLHigh Triglyceride: 200-499 mg/dLVery High Triglyceride: greater than or equal to 5OO mg/dL Cholesterol 148 <200 mg/dL [facility] Comment:Desirable Cholestero l: less than 200 mg/dLBorderline High Cholesterol: 200-239 mg/dLHigh Cholesterol: greater than 239 mg/dL LDL Cholesterol Calculated 81 <100 mg/dL [facility] Comment:Desirable LDL: less than 100 mg/dLNear Optimal/Above Optimal LDL: 110- 129 mg/dLBorderline High LDL: 130-159 mg/dLHigh LDL: 160-189 mg/dLVery High LDL: greater than or equal to 190 mg/dL HDL Cholesterol 46 >40 mg/dL [facility] Comment:Desirable HDL: great er than 40 mg/dL Note: This HDL assay may give artificially low results in patients with liver disease. 08/16/2024 9:01 AM EST 08/16/2024 9:01 AM EST us Generic External Data Provider LAB BLOOD ORDERAB LES Final Result Performing Organization Address [facility]/ZIP Co de Phone Number [facility] [address] [place] [address] [phone] * BI Mammogram Screening Tomosynthesis Bilateral (07/25/2024 2:30 PM EST) Anatomical Region Laterality Modality Breast Bilateral Mammography 07/25/2024 2:30 PM EST Narrative 08/03/2024 4:35 PM EST ? [facility] ? [address] ?[place] [address] ? Mammography Report ? Signed ? Patient: Violet Pascal ?MR#: [id number] ?? [id number] ? : 1960 ?Acct:[id number] ? Age/Sex: 64 / F ?ADM Date: 07/25/24 ? Loc: HO.MAMMO ? Attending Dr: Pretty Zayas MD ? Ordering Physician: Pretty Molina MD ?Results: ?? 2Benign Findings ? Date of Service: 07/25/24 ?Follow Up: 1 Year From Orig ?? inal Mammogram ? Procedure(s): MM tomosynthesis screening BI ?? Accession Number(s): [id number] ? cc: Pretty Molina MD ? EXAMINATION: [...] DD/ 1430 ? TD/TT: 07/25/24 1446 ? Bush Hog Operator: ? Procedure Note Karolyn, Image - 08/03/2024 [facility] [address] [place] [address] [place] [address] Mammography Report Signed Patient: Abraham Pascal#: [id number] : 1960cct:[id number] Age/Sex: 64 / FADM Date: 07/25/24 Loc: HO.MAMMO Attending Dr: Pretty Zayas MD Ordering Physician: Pretty Molinaesults: 2Benign Findings Date of Service: 07/25/24Follow Up: 1 Year From Orig inal Mammogram Procedure(s): MM tomosynthesis screening BI Accession Number(s): [id number] cc: Pretty Molina MD EXAMINATION: MM SCREENING [...] 08/03/24 1632 DD/ 1430 TD/TT: 07/25/24 1446 Bush Hog Operator: us Pretty Zayas MD IMG BI PROCEDURES Fin al Result * US Pelvis Transvaginal (07/21/2024 9:20 AM EST) Anatomical Region Laterality Modality Pelvis Ultrasound 07/21/2024 9:20 AM EST Narrative 07/21/2024 9:21 AM EST ? [facility] ?[address] ?[place] [address] ? Ultrasound Report ? Signed ? Patient: Pascal,Fredevinda ?MR#: [id number] ?? [id number] ? : 1960 ?Acct:[id number] ? Age/Sex: 64 / F ?ADM Date: //25 ? Loc: HO.US ? Attending Dr: Ramesh Gurrola MD ? Ordering Physician: Ramesh Gurrola MD ?? Date of Service: 07/20/24 ?? Procedure(s): US pelvic and transvaginal ?? Accession Number(s): [id number] ? cc: rPetty Molina MD; Ramesh Gurrola MD ? CLINICAL [...] ? DD/ 9 ? TD/TT: 07/21/24919 ? Bush Hog Operator: ? Procedure Note Karolyn, Image - 07/21/2024 [place] [address] Ultrasound Report Signed Patient: Abraham Pascal#: [id number] : 1960cct:[id number] Age/Sex: 64 / FADM Date: 07/20/24 Loc: HO.US Attending Dr: Ramesh Gurrola MD Ordering Physician: Ramesh Gurrola MD Date of Service: 07/20/24 Procedure(s): US pelvic and transvaginal Accession Number(s): [id number] cc: Pretty Molina MD; Ramesh Gurrola MD [...] in OV> 07/21/24919 DD/ 9 TD/TT: 07/21/24919 Bush Hog Operator: [facility] External Provider IMG US PROCEDURES Edited Result - Final * (ABNORMAL) Basic Metabolic Panel (07/20/2024 12:01 PM EST) Sodium 137 135 - 145 mmol/L [facility] Potassium 4.2 3.3 - 5.1 mmol/L [facility] Chloride 103 96 - 108 mmol/L [facility] Carbon Dioxide 24 22 - 29 mmol/L [facility] Anion Gap 14 12 - 20 [facility] Urea Nitrogen (BUN) 18(H) 9 - 16 mg/dL [facility] Creatinine, Serum 0.75 0.5 - 1.4 mg/dL [facility] Estimated Glomerular Filt Rate >60 [facility] Comment:Chronic Kidney Disea se: Estimated GFR < 60 mL/min/1.78h3Kniytz Kidney Disease: Estimated GFR < 15 mL/min/1.73m2 Glucose 156(H) 60 - 115 mg/dL [facility] Calcium 9.4 8.4 - 10.2 mg/dL [facility] 07/20/2024 12:0 1 PM EST 07/20/2024 12:01 PM EST Generic External Data Provider LAB BLOOD ORDERAB LES Final Result [facility] [address] [place] [address] [phone] * (ABNORMAL) POCT HGB A1C (04/05/2024 3:05 PM EDT) Hemoglobin A1C 6.9(A) 4.0 - 6.0 % QC Media Lot # [id number] Lot# Expiration Date Blood 04/05/2024 3:05 PM EDT us Pretty Zayas MD POINT OF CARE [...] alternative testing options.For additional information, please refer tohttp://education.Abril/faq/SBH551t4(This link if provided for information/educational purposes only.)THIS TEST WAS PERFORMED AT:[employer] [place] [phone] ANNE MD HPV mRNA E6/E7 [facility] HPV 16 RNA [facility] HPV 18/45 RNA [facility] 04/18/2023 2:08 PM EST 04/19/2023 8:20 AM EST Cristian Briones CNM LAB CYTOLOGY ORDERABLES F inal Result [facility] [address] [place] [address] [phone] * Pap Smear (04/18/2023 2:08 PM EST) 04/18/2023 2:08 PM EST 04/19/2023 8:20 AM EST Narrative [facility] - 04/26/2023 1:40 PM EST ----- ------- Name: Violet Pascal ? Age/Sex: 63/F ? : 1960 Unit#: [id number] ?? Attend Dr: CRISTIAN BRIONES CNM ?Re04/18/23 ?Status: DEP REF ? Location: HO.HHCLNP ? Disch: ? ----- ------- SPEC : [id number] ?RECD: 04/19/23-819 ? STATUS: ??SOUT ? REQ NUM: [id number] ? YASMINE: 04/18/23 ? SUBM DR: CRISTIAN [...] 66, 68) ?? HPV testing performed by [facility], [place], [place]. ??See reference laboratory ?? pion of the EMR for entire report. ?Clinical Information LMP: Postmenopausal Previous PAP test: Unknown date/findings ? Material Received ?? ThinPrep-Cervical ----- ------- Signed (signature on file) Kaye R Botto, CT ([facility]) 04/26/23 1340 ? ----- ------- ? END OF REPORT ? us Cristian Briones [facility] LAB CYTOLOGY ORDERABLES F inal Result [facility] [address] [place] [phone] * Hepatitis C Antibody (02/03/2021 12:01 PM EDT) [facility] Hepatitis C Antibody Nonreactive Nonreactive [facility] Comment: Antibodies to HCV not detected; does not exclude early acute HCV infection. HIV AB/AG Nonreactive Nonreactive [facility] Comment: HIV-1 p24 Ag and/or [...] detection of this assay. ?? [employer] HIV Ag/Ab Combo assay result and supplemental assay results should be interpreted in conjunction with the patient's clinical presentation, history and other laboratory results. ??If the results are inconsistent with clinical evidence, additional testing is suggested to confirm the result. Hepatitis B Surface Antigen Negative Negative [facility] 02/03/2021 12:0 1 PM EDT us Ramesh Gurrola MD HISTORICAL/NON ORDERABLE LABS Fi nal Result [facility] [address] from Last 3 Months or Most Recently Relevant to Health Maintenance Insurance [facility] C3 Care Teams Corporate Intern Relationship Specialty Start Date End Date Pretty Molina MD [address] [place] [address] PCP - General Family Medicine 12/24/20 Guero Burns, Mario [address] [place] [address] Pharmacist Internal Medicine 09/20/24
--- OUTSIDE RECORDS SUMMARY | 2024-10-03 17:19 | XMS_ITS | Encounter Summary ---
Author Organization [employer] Address [address] [facility] 7t [place] [address] Care Team Providers Care Manager Human Capital Name Role Phone Pretty Molina MD Primary Care Provide r Guero Burns PharmD Unavailable [phone] Reason for Visit * Reason Comments Med Refill Encounter Details Date Type Department Care Team ([facility] st Contact Info) Description 03/23/2023 Refill [facility] [address] [place] [address] Pretty Molina MD [address] [place] [address] Neuropathy Social History Tobacco Use Types Packs/Day [...] Info) Description 10/04/2024 11:30 AM EDT Telemedicine [address] [address] Guero Burns PharmD [address] [place] [address] 10/10/2024 10:30 AM EDT Office Visit [address] [address] Pretty Molina MD [address] [place] [address] 12/05/2024 2:00 PM EDT Clinical Support [address] [address] Sandra Boyd RN documented as of this encounter Visit Diagnoses Diagnosis Neuropathy Mononeuritis of unspecified site documented in this encounter Additional Health Concerns Assessment Noted Time PHQ-9 Depression Total Score: 12 023 3:08 PM EDT documented as of this encounter Care Teams Manager Human Capital Relationship Specialty Start Date End Date Pretty Molina MD [address] [place] [address] PCP - General Family Medicine 12/24/20 Guero Burns, PoloD [address] [place] [address] Pharmacist Internal Medicine 09/20/24 documented as of this encounter
--- OUTSIDE RECORDS SUMMARY | 2024-10-03 17:19 | XMS_ITS | Encounter Summary ---
Author Organization [employer] Address [address] [facility] 7t [place] [address] Care Team Providers Care Card Tender Name Role Phone Pretty Molina MD Primary Care Provide r Guero Burns PharmD Unavailable [phone] Reason for Visit * Reason Comments Med Refill Encounter Details Date Type Department Care Team (Late st Contact Info) Description 05/02/2023 Refill [facility] [address] [place] [address] Jocelyn Bender DO [address] [place] [address] Seasonal allergic rhinitis, unspecified trigger Social History [...] Description 10/04/2024 11:30 AM EDT Telemedicine [address] [address] Guero Burns, Mario [address] [place] [address] 10/10/2024 10:30 AM EDT Office Visit [address] [address] Pretty Molina MD [address] [place] [address] 12/05/2024 2:00 PM EDT Clinical Support [address] [address] Sandra Boyd RN documented as of this encounter Visit Diagnoses Diagnosis Seasonal allergic rhinitis, unspecified trigger documented in this encounter Additional Health Concerns Assessment Noted Time PHQ-9 Depression Total Score: 12 023 3:08 PM EDT documented as of this encounter Care Teams Card Tender Relationship Specialty Start Date End Date Pretty Molina MD [address] [place] [phone] PCP - General Family Medicine 12/24/20 Guero Burns, PoloD [address] [place] [address] Pharmacist Internal Medicine 09/20/24 documented as of this encounter
--- OUTSIDE RECORDS SUMMARY | 2024-10-03 17:19 | XMS_ITS | Encounter Summary ---
Author Organization [employer] Address 75 [facility] 7t [place] [address] Care Team Providers Care Termite Exterminator Name Role Phone Pretty Molina MD Primary Care Provide r Guero Burns PharmD Unavailable [phone] Reason for Visit * Reason Comments Med Refill Encounter Details Date Type Department Care Team (Late st Contact Info) Description 05/09/2023 Refill [facility] MED[facility] [address] [place] [address] Pretty Molina MD 230 [place], [place] [phone] Other chronic pain Social History Tobacco Use [...] Description 10/04/2024 11:30 AM EDT Telemedicine [address] [address] Guero Burns, Mario [address] [place] [address] 10/10/2024 10:30 AM EDT Office Visit [address] [address] Pretty Molina MD [address] [place] [address] 12/05/2024 2:00 PM EDT Clinical Support [address] [address] Sandra Boyd RN documented as of this encounter Visit Diagnoses Diagnosis Other chronic pain documented in this encounter Additional Health Concerns Assessment Noted Time PHQ-9 Depression Total Score: 12 023 3:08 PM EDT documented as of this encounter Care Teams Termite Exterminator Relationship Specialty Start Date End Date Pretty Molina MD [address] [place] [address] PCP - General Family Medicine 12/24/20 Guero Burns, PharmD [address] [place] [address] Pharmacist Internal Medicine 09/20/24 documented as of this encounter
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
--- OUTSIDE RECORDS SUMMARY | 2024-10-03 17:19 | XMS_ITS | Encounter Summary ---
Author Organization [employer] Address 75 [facility] 7t [place] [address] Care Team Providers Care Post Tronic Machine Operator Name Role Phone Pretty Molina MD Primary Care Provide r Guero Burns PharmD Unavailable [phone] Reason for Visit * Reason Comments Med Refill Encounter Details Date Type Department Care Team ([facility] st Contact Info) Description 04/15/2024 Refill [facility] MED & PEDS [address] [place] [address] Pretty Molina MD 230 [place] [address] Social History Tobacco Use Types Packs/Day Years [...] Description 10/04/2024 11:30 AM EDT Telemedicine [address] [address] Guero Burns, PharmD [address] [place] [address] 10/10/2024 10:30 AM EDT Office Visit [address] [address] Pretty Molina MD [address] [place] [address] 12/05/2024 2:00 PM EDT Clinical Support [address] [address] Sandra Boyd RN documented as of this encounter Visit Diagnoses Not on filedocumented in this encounter Additional Health Concerns Assessment Noted Time PHQ-9 Depression Total Score: 4 01/06/20 24 2:22 PM EDT documented as of this encounter Care Teams Post Tronic Machine Operator Relationship Specialty Start Date End Date Pretty Molina MD [address] [place] [address] PCP - General Family Medicine 12/24/20 Guero Burns, PoloD [address] [place] [address] Pharmacist Internal Medicine 09/20/24 documented as of this encounter
--- OUTSIDE RECORDS SUMMARY | 2024-10-03 17:19 | XMS_ITS | Encounter Summary ---
Author Organization [employer] Address 75 [facility] 7t [place] [address] Care Team Providers Care Jewelry Manager Name Role Phone Pretty Molina MD Primary Care Provide r Guero Burns PharmD Unavailable Reason for Visit * Reason Comments Med Refill Encounter Details Date Type Department Care Team (Late st Contact Info) Description 12/27/2022 Refill [facility] MEDICINE 230 [place] [address] Jocelyn Bender DO 230 [place] [address] Seasonal allergic rhinitis, unspecified trigger Social History [...] Description 10/04/2024 11:30 AM EDT Telemedicine [address] [address] Guero Burns, Mario [address] [place] [address] 10/10/2024 10:30 AM EDT Office Visit [address] [phone] Pretty Molina MD [address] [place] [address] 12/05/2024 2:00 PM EDT Clinical Support [address] [phone] Sandra Boyd RN documented as of this encounter Visit Diagnoses Diagnosis Seasonal allergic rhinitis, unspecified trigger documented in this encounter Additional Health Concerns Assessment Noted Time PHQ-9 Depression Total Score: 12 023 3:08 PM EDT documented as of this encounter Care Teams Jewelry Manager Relationship Specialty Start Date End Date Pretty Molina MD [address] [place] [address] [phone] PCP - General Family Medicine 12/24/20 Guero Burns, PharmAyush [address] [place] [address] [phone] Pharmacist Internal Medicine 09/20/24 documented as of this encounter
--- OUTSIDE RECORDS SUMMARY | 2024-10-03 17:19 | XMS_ITS | Encounter Summary ---
Author Organization [employer] Address 75 [facility] 7t [place] [address] Care Team Providers Care Director Of Workforce Development Name Role Phone Pretty Molina MD Primary Care Provide r Guero Burns PharmD Unavailable [phone] Reason for Visit * Reason Comments Med Refill Encounter Details Date Type Department Care Team (Late st Contact Info) Description 04/21/[address] [facility] MEDICINE 230 [place] [address] Pretty Molina MD 230 [place] [address] Neuropathy Social History Tobacco Use Types Packs/Day [...] Info) Description 10/04/2024 11:30 AM EDT Telemedicine [address] [address] Guero Burns, PoloD [address] [place] [address] 10/10/2024 10:30 AM EDT Office Visit [address] [address] Pretty Molina MD [address] [place] [address] 12/05/2024 2:00 PM EDT Clinical Support [address] [address] Sandra Boyd RN documented as of this encounter Visit Diagnoses Diagnosis Neuropathy Mononeuritis of unspecified site documented in this encounter Additional Health Concerns Assessment Noted Time PHQ-9 Depression Total Score: 4 01/06/20 24 2:22 PM EDT documented as of this encounter Care Teams Director Of Workforce Development Relationship Specialty Start Date End Date Pretty Molina MD [address] [place] [address] PCP - General Family Medicine 12/24/20 Guero Burns, PharmD [address] [place] [address] Pharmacist Internal Medicine 09/20/24 documented as of this encounter
--- OUTSIDE RECORDS SUMMARY | 2024-10-03 17:19 | XMS_ITS | Encounter Summary ---
Author Organization [employer] Address 75 [facility] 7t [place] [address] Care Team Providers Care Fiscal Agent Name Role Phone Pretty Molina MD Primary Care Provide r Guero Burns PharmD Unavailable [phone] Reason for Visit * Reason Onset Date Comments Nurse Triage 04/26/2024 Encounter Details Date Type Department Care Team (Late st Contact Info) Description 04/26/2024 Telephone [facility] MEDICINE 230 [place] [address] Pretty Molina MD 230 [place] [address] Nurse Triage Social History Tobacco Use Types [...] EST Please obtain note from [facility] visit 04/24/24, Upcoming appt with PCP tomorrow at 11am. * Telephone Encounter - Valeria Hooper LPN - 04/26/2024 11:58 AM EST Triage call returned with BLS #[id number] Yonathan. Patient reports that she was seen on 04/19/24. Patient is reporting following her Flu shot she has been feeling delicate . Chart shows Flu given in March. Call dropped. Return call with [employer]. Patient reports seen at [facility] and not improved with cough and congestion. Has no reported fever. Patient then reports presented to [facility] on 04/24/24 and was given scan [...] caller accepted this outcome. Contact pt at [phone] documented in this encounter Plan of Treatment Upcoming Encounters Date Type Department Care Team (Late st Contact Info) Description 10/04/2024 11:30 AM EDT Telemedicine [address] [address] Guero Burns, PoloD [address] [place] [address] 10/10/2024 10:30 AM EDT Office Visit [address] [address] Pretty Molina MD [address] [place] [address] 12/05/2024 2:00 PM EDT Clinical Support [address] [address] Sandra Boyd RN documented as of this encounter Visit Diagnoses Not on filedocumented in this encounter Additional Health Concerns Assessment Noted Time PHQ-9 Depression Total Score: 4 01/06/20 24 2:22 PM EDT documented as of this encounter Care Teams Fiscal Agent Relationship Specialty Start Date End Date Pretty Molina MD 230 [place] [address] PCP - General Family Medicine 12/24/20 Guero Burns, PoloD 230 [place] [address] Pharmacist Internal Medicine 09/20/24 documented as of this encounter
== END 2024-10-03 16:42 | disposition home or self-care (01) ==
LOC: HO.HGI 14:24
PROVIDERS: PCP Internal Medicine; Visit Provider Internal Medicine
DX: K59.04 Chronic idiopathic constipation (principal); D36.9 Benign neoplasm, unspecified site
CPT/HCPCS: 99214

== ENCOUNTER → 2024-10-03 14:24 | Outpatient (BNVA) | payer MEDICAID, SELFPAY | PROVIDERS: PCP Internal Medicine; Visit Provider Internal Medicine | DX: K59.04 Chronic idiopathic constipation (principal); D36.9 Benign neoplasm, unspecified site | CPT/HCPCS: 99212 ==

== ENCOUNTER 2024-10-15 09:10 | Outpatient (REF) | payer MEDICAID, SELFPAY ==
--- OUTSIDE RECORDS SUMMARY | 2024-10-15 09:50 | XMS_ITS | Encounter Summary ---
Author Organization [employer] Address 75 [facility] 7t [place] [address] Care Team Providers Care Quality Head Name Role Phone Pretty Molina MD Primary Care Provide r Guero Burns PharmD Unavailable [phone] Encounter Details Date Type Department Care Team (Late st Contact Info) Description 09/01/2022 Orders Only [facility] CHC MED & PEDS [address] [place], [place] [phone] Jocelyn Fleming LPN Social History Tobacco Use [...] Care Team (Late st Contact Info) Description 10/23/2024 1:30 PM EDT Telemedicine [address] [phone] Guero Burns, PharmD 230 [place] [address] 12/05/2024 2:00 PM EDT Clinical Support [facility] 230 [place] [address] Sandra Boyd, TONY documented as of this encounter Visit Diagnoses Not on filedocumented in this encounter Care Teams Quality Head Relationship Specialty Start Date End Date Pretty Molina MD [address] [place] [phone] PCP - General Family Medicine 12/24/20 Guero Burns, Mario [address] [place] [phone] Pharmacist Internal Medicine 09/20/24 documented as of this encounter
--- OUTSIDE RECORDS SUMMARY | 2024-10-15 09:50 | XMS_ITS | Encounter Summary ---
Author Organization [employer] Address [address] [facility] 7t [place] [address] Care Team Providers Care Verifying Machine Operator Name Role Phone Pretty Molina MD Primary Care Provide r Guero Burns PharmD Unavailable [phone] Reason for Referral * Consultation (Routine) - Authorized Specialty Diagnoses / Procedures Referred By Contac t Referred To Contact General Surgery Diagnoses Lipoma of other specified sites Pretty Molina MD [address] [place] [address] Phone: tel: fax: [facility] [address] 3rd Floor [place], [place] Phone: tel: fax: Referral ID Status Reason Start Date Expiration Date Visits Requested Visits Authorized [id number] Authorized Specialty Services Required 10/11/2024 10/11/2025 12 12 * Consultation (Routine) - Authorized Specialty Diagnoses / Procedures Referred By Contac t Referred To Contact Vascular Surgery Diagnoses Varicose veins of both lower extremities with pain Pretty Molina MD [address] [place] [address] Phone: tel: fax: [facility] Referral ID Status Reason Start Date Expiration Date Visits Requested Visits Authorized [id number] Authorized Specialty Services Required 10/11/2024 10/11/2025 6 6 * Consultation (Routine) - Authorized Specialty Diagnoses / Procedures Referred By Chrissy lopez Referred To Contact Urology Diagnoses Bladder pain Pretty Molina MD [address] [place] [address] Phone: tel: fax: [facility] [address] [place], [place] Phone: tel: fax: Referral ID Status Reason Start Date Expiration Date Visits Requested Visits Authorized [id number] Authorized Specialty Services Required 10/11/2024 10/11/2025 6 6 Reason for Visit * Consultation (Routine) - Authorized Specialty Diagnoses / Procedures Referred By Chrissy lopez Referred To Contact Pharmacy Diagnoses Tobacco dependence Pretty Molina MD [address] [place] [address] Phone: tel: fax: Referral ID Status Reason Start Date Expiration Date Visits Requested Visits Authorized [id number] Authorized Consult and Treat 06/11/2024 06/11/2025 6 6 Encounter Details Date Type Department Care Team (Late st Contact Info) Description 10/10/2024 10:30 AM EDT Office Visit [facility] [address] [place] [phone] Pretty Molina MD [address] [place] [phone] Bladder pain (Primary Dx); Type 2 diabetes mellitus with hyperglycemia, without long-term current use of insulin ([facility]); Varicose veins of both lower extremities with pain; Numbness and tingling; Primary hypertension; Lipoma of other specified sites Social History Tobacco Use Types Packs/Day Years [...] Sign Reading Time Taken Comments Blood Pressure 134/77 10/10/2024 10:13 AM EDT Pulse 71 10/10/2024 10:13 AM EDT Temperature 37 ??C (98.6 ??F) 10/10/2024 10:13 AM EDT Respiratory Rate 18 10/10/2024 10:13 AM EDT Oxygen Saturation - - Inhaled Oxygen Concentration - - Weight 95.4 kg (210 lb 6.4 oz) 10/10/2024 10:13 AM EDT Height 157.5 cm (5' 2 ) 10/10/2024 10:13 AM EDT Body Mass Index 38.48 10/10/2024 10:13 AM EDT documented in this encounter Progress Notes * Pretty Zayas MD - 10/10/2024 10:30 AM EDT Images from the original note were not included. SUBJECTIVE: Violet Pascal is a 64 y.o. year old female who presents for Chronic Disease Management . Acute Concerns: Patient reports she has a little cyst/mole on her back that is now starting to bother her and causepain Patient reports some numbness and tingling on both hands she is known to have carpal tunnel syndrome, also has a sensation sometimes in her feet, she also reports sometimes she feel dizzy/weak Patient today also complains of bladder pain especially after she finished urinating Patient today also complains of painful varicose veins on her legs Social History Social History Narrative Not on [...] for malignant neoplasm of breast Tobacco dependence Bladder pain Varicose veins of both lower extremities with pain Numbness and tingling Lipoma No family history on file. Review of Systems Constitutional: Negative. HENT: Negative. Respiratory: Negative. Cardiovascular: Negative. Genitourinary: Positive for difficulty urinating and frequency. Musculoskeletal: Positive for arthralgias and myalgias. Neurological: Positive for dizziness and numbness. OBJECTIVE: Vitals: 10/10/24 1013 BP: 134/77 BP Location: Left arm Patient Position: Sitting BP Cuff Size: Adult Pulse: 71 Resp: 18 Temp: 98.6 ??F (37 ??C) TempSrc: Oral Weight: 210 lb 6.4 oz (95.4 kg) Height: 5' 2 (1.575 m) Physical Exam Constitutional: Appearance: Normal appearance. Cardiovascular: Rate and Rhythm: Normal rate and regular rhythm. Pulmonary: Effort: Pulmonary effort is normal. Breath sounds: Normal breath sounds. Abdominal: General: Abdomen is flat. Palpations: Abdomen is soft. Musculoskeletal: Arms: Comments: Lipoma located on upper back left side about 2 cm in diameter Neurological: Mental Status: She is alert. Follow [...] SUGAR THREE TIMES DAILY 100 each 11 ammonium lactate (Lac-Hydrin) 12 % lotion APPLY TO LA PLANTA DEL PIE cada dmitriy EN LA NOCHE UTILIZA MEDIAS PARA DORMIR Aspirin Low Dose 81 MG EC tablet TAKE 1 TABLET BY MOUTH EVERYDAY AT NOON 90 tablet 3 atorvastatin (Lipitor) 80 MG tablet Take 1 tablet (80 mg) by mouth Once per day. 30 tablet 11 Blood Glucose Monitoring Suppl (FreeStyle Lite) w/Device kit 1 kit 2 times daily. To monitor blood glucose. 1 kit 0 Blood Pressure Monitoring (B-D ASSURE BPM/AUTO WRIST CUFF) misc 1 each Once daily. 1 each 0 carvedilol (Coreg) 6.25 MG tablet TAKE 1 TABLET BY MOUTH TWICE DAILY IN THE MORNING AND IN THE EVENING cetirizine (ZyrTEC) 10 MG tablet Take 1 tablet (10 mg) by mouth in the morning. 90 tablet 0 cholecalciferol (D3-1000) 25 MCG (1000 UT) capsule TAKE 1 CAPSULE BY MOUTH EVERY MORNING 90 capsule1 [] dextran 70-hypromellose (artificial tears) 0.1-0.3 % ophthalmic solution Administer 1 drop into both eyes if needed in the morning, at noon, and at bedtime for dry eyes. 30 mL 0 Diclofenac Sodium 1 % gel Apply 1 Application topically 2 times daily. APPLY 2 GRAMS TOPICALLY TO AFFECTED AREA(S) EVERY TWELVE HOURS NEEDED 100 g 1 Dulaglutide (Trulicity) 1.5 MG/0.5ML solution auto-injector Inject 1.5 mg under the skin 1 (one) time per week. INJECT ONE PEN (=1.5MG) SUBCUTANEOUSLY ONCE A WEEK DIRECTED 2 mL 1 DULoxetine (Cymbalta) [address] capsule TAKE 1 CAPSULE BY MOUTH EVERY EVENING WITH 60 MG CAPSULE DULoxetine (Cymbalta) [address] capsule Take 60 mg by mouth in the morning. estradiol (Estrace) 0.1 MG/GM vaginal cream APPLY 1 GRAM TOPICALLY VAGINALLY 2 TIMES PER WEEK. 42.5g 1 ezetimibe (Zetia) 10 MG tablet Take 1 tablet by mouth Once per day. fluticasone (Flonase) 50 MCG/ACT nasal spray INHALE [...] TIMES A DAY DIRECTED 100 strip 11 hydroCHLOROthiazide 12.5 MG tablet TAKE 1 TABLET BY MOUTH EVERY MORNING (CALL IF BLOOD PRESSURE CONTINUAMENTE >140/90) 90 tablet 1 hydrocortisone (Anusol-HC) 2.5 % rectal cream Apply a thin layer to affected area(s)twice daily to four times daily as needed 30 g 0 hydrOXYzine pamoate (Vistaril) 25 MG capsule TAKE 1 TO 2 CAPSULES BY MOUTH EVERY DAY AT BEDTIME NEEDED Jardiance 25 MG TAKE 1 TABLET BY MOUTH EVERY MORNING 90 tablet 1 ketoconazole (NIZOral) 2 % shampoo APPLY TO DRY SCALP 10 MINUTES BEFORE SHOWER. RINSE AND CLEAN HAIR 1-2 TIMES WEEKLY losartan (Cozaar) 100 MG tablet TAKE 1 TABLET BY MOUTH EVERY MORNING 90 tablet 3 metFORMIN (Glucophage) 1000 MG tablet TAKE 1 TABLET BY MOUTH TWICE DAILY IN THE MORNING AND IN THE EVENING WITH FOOD 180 tablet 3 mometasone (Elocon) 0.1 % lotion APPLY TOPICALLY TO THE AFFECTED AREA(S) OF SCALP ONE OR TWO TIMES DAILY NEEDED FOR ITCHING FOR 2 WEEKS THEN coja un reposo de geoffrey semana THEN NEEDED Myrbetriq 50 MG 24 hr tablet Take 50 mg by mouth in the morning. nicotine (Nicoderm CQ) 14 MG/24HR patch Place 1 patch on the skin 1 (one) time each day at the sametime. 21 patch 1 nicotine polacrilex (FT Nicotine) 4 MG lozenge Dissolve 1 lozenge (4 mg) in the mouth every 1-2 hours if needed for smoking cessation. 144 lozenge 1 NIFEdipine XL (Procardia XL) 60 MG 24 hr tablet TAKE 1 TABLET BY MOUTH EVERYDAY AT NOON 90 tablet 3 omeprazole (PriLOSEC) [address] capsule TAKE 1 CAPSULE BY MOUTH EVERY MORNING 90 capsule 1 oxyCODONE-acetaminophen (Percocet) 5-325 MG tablet Take 1 tablet by mouth every 12 (twelve) hours if needed for severe pain. 56 tablet 0 polyvinyl alcohol (Liquifilm Tears) 1.4 % ophthalmic solution PLACE 1 DROP IN EACH EYE THREE TIMES DAILY IN THE MORNING, AT NOON, AND AT BEDTIME NEEDED FOR DRY EYES 15 mL 1 Reguloid 57.6 % powder DISSOLVE 1 TABLESPOONFUL IN AT LEAST 8 OUNCES WATER AND DRINK DAILY DIRECTED risperiDONE (RisperDAL) 2 MG tablet Take 2 mg by mouth at bedtime. SF 5000 Plus 1.1 % cream USE AT BEDTIME DO NOT RINSE FOR 30 MINUTES 51 g 0 triamcinolone (Kenalog) 0.1 % ointment APPLY TOPICALLY TO THE AFFECTED AREA(S) OF BODY TWICE DAILY FOR 2 WEEKS THEN coja un reposo de geoffrey semana AND USE vaseline THEN NEEDED TRUEplus Lancets 33G misc TEST BLOOD SUGAR 3 TIMES DAILY 100 each 11 No current facility-administered medications on file prior to visit. Problem List Items Addressed This Visit Type 2 diabetes mellitus with hyperglycemia, without long-term current use of insulin ([facility]) Diabetes is: controlled - Lab Results Component Value Date HGBA1C 6.4 (A) 10/10/2024 HGBA1C 6.9 (A) 04/05/2024 HGBA1C 6.5 (A) 01/06/2024 - Lab Results Component Value Date MICROALBUR 204.8 07/20/2021 CREATININE 0.75 07/20/2024 -Changes: None - Diabetic eye exam: Up-to-date - Diabetic foot exam: Pending - Continue lifestyle modifications - Continue current medications - Follow up: 3 months Relevant Orders POCT Glucose (Completed) POCT HGB A1C (Completed) Albumin, Random Urine W/Creatinine Comprehensive Metabolic Panel Bladder pain - Primary Relevant Orders Referral to Urology Varicose veins of both lower extremities with pain I will refer patient to vascular specialist Relevant Orders Referral to Vascular Surgery Numbness and tingling Relevant Orders Vitamin B12/Folate, Serum Panel Vitamin D, 25-Hydroxy, Total, Immunoassay Hypertension I advised: - Aerobic exercise to reduce BP. Initial goal of 30 min walk 3-5x/week. Increase as tolerated. - low-sodium diet (goal: <2g/day) and heart healthy diet such as DASH to reduce BP and prevent ASCVD. - Home BP monitoring 1-2 x day with goal of <140/90. - Seek immediate medical attention for chest pain, palpitations, SOB, syncope, or sudden changes inmental status. - Do not change or discontinue current prescriptions without first consulting health care provider Lipoma Relevant Orders Referral to General Surgery documented in this encounter Miscellaneous Notes * Assessment & Plan Note - Pretty Zayas MD - 10/10/2024 12:33 PM EDT Associated Problem(s): Type 2 diabetes mellitus with hyperglycemia, without long-term current use of insulin ([facility]) Diabetes is: controlled - Lab Results Component Value Date HGBA1C 6.4 (A) 10/10/2024 HGBA1C 6.9 (A) 04/05/2024 HGBA1C 6.5 (A) 01/06/2024 - Lab Results Component Value Date MICROALBUR 204.8 07/20/2021 CREATININE 0.75 07/20/2024 -Changes: None - Diabetic eye exam: Up-to-date - Diabetic foot exam: Pending - Continue lifestyle modifications - Continue current medications - Follow up: 3 months * Assessment & Plan Note - Pretty Zayas MD - 10/10/2024 12:32 PM EDT Associated Problem(s): Varicose veins of both lower extremities with pain I will refer patient to vascular specialist * Assessment & Plan Note - Pretty Zayas MD - 10/10/2024 12:32 PM EDT Associated Problem(s): Hypertension I advised: - Aerobic exercise to reduce BP. Initial goal of 30 min walk 3-5x/week. Increase as tolerated. - low-sodium diet (goal: <2g/day) and heart healthy diet such as DASH to reduce BP and prevent ASCVD. - Home BP monitoring 1-2 x day with goal of <140/90. - Seek immediate medical attention for chest pain, palpitations, SOB, syncope, or sudden changes inmental status. - Do not change or discontinue current prescriptions without first consulting health care provider documented in this encounter Plan of Treatment Upcoming Encounters Date Type Department Care Team (Late st Contact Info) Description 10/23/2024 1:30 PM EDT Telemedicine [facility] [address] [place] [phone] Guero Burns, PharmD [address] [place] [address] 12/05/2024 2:00 PM EDT Clinical Support [address] [address] Sandra Boyd RN Scheduled Orders Name Type Priority Associated Diagnoses Orde r Schedule Albumin, Random Urine W/Creatinine Lab Routine Type 2 diabetes mellitus with hyperglycemia, without long-term current use of insulin ([facility]) Expected: 10/10/2024 (Approximate), Expires: 10/10/2025 Comprehensive Metabolic Panel Lab Routine Type 2 diabetes mellitus with hyperglycemia, without long-term current use of insulin ([facility]) Expected: 10/10/2024 (Approximate), Expires: 10/10/2025 Vitamin B12/Folate, Serum Panel Lab Routine Numbness and tingling Expected: 10/10/2024, Expires: 10/10/2025 Vitamin D, 25-Hydroxy, Total, Immunoassay Lab Routine Numbness and tingling Expected: 10/10/2024 (Approximate), Expires: 10/10/2025 Scheduled Referrals Name Type Priority Associated Diagnoses Orde r Schedule Referral to Urology Outpatient Referral Routine Bladder pain Expected: 10/10/2024 (Approximate), Expires: 10/10/2025 Referral to Vascular Surgery Outpatient Referral Routine Varicose veins of both lower extremities with pain Expected: 10/10/2024 (Approximate), Expires: 10/10/2025 Referral to General Surgery Outpatient Referral Routine Lipoma of other specified sites Expected: 10/10/2024 (Approximate), Expires: 10/10/2025 documented as of this encounter Procedures Procedure Name Priority Date/Time Associated Diagnosis Comments POCT GLYCATED HEMOGLOBIN, TOTAL Routine 10/10/2024 10:14 AM EDT Type 2 diabetes mellitus with hyperglycemia, without long-term current use of insulin ([facility]) POCT GLUCOSE Routine 10/10/2024 10:14 AM EDT Type 2 diabetes mellitus with hyperglycemia, without long-term current use of insulin ([facility]) documented in this encounter Results * (ABNORMAL) POCT HGB A1C (10/10/2024 10:14 AM EDT) Hemoglobin A1C 6.4(A) 4.0 - 6.0 % QC Media Lot # [id number] Lot# Expiration Date Blood 10/10/2024 10:1 4 AM EDT us Pretty Zayas MD POINT OF CARE TEST EN TER/EDIT ORDERABLES Final Result * POCT Glucose (10/10/2024 10:14 AM EDT) Glucose Blood, POC 177 60 - 200 mg/dL Comment:random QC Media Lot # [id number] Lot# Expiration Date Blood Capillary blood specimen / Unknown 10/10/2024 10:14 AM EDT Pretty Zayas MD POINT OF CARE TEST EN TER/EDIT ORDERABLES Final Result documented in this encounter Visit Diagnoses Diagnosis Bladder pain- Primary Other symptoms involving urinary system Type 2 diabetes mellitus with hyperglycemia, without long-term current use of insulin ([facility]) Varicose veins of both lower extremities with pain Numbness and tingling Disturbance of skin sensation Primary hypertension Unspecified essential hypertension Lipoma of other specified sites documented in this encounter Additional Health Concerns Assessment Noted Time PHQ-9 Depression Total Score: 4 01/06/20 24 2:22 PM EDT documented as of this encounter Care Teams Verifying Machine Operator Relationship Specialty Start Date End Date Pretty Molina MD [address] [place] [address] PCP - General Family Medicine 12/24/20 Guero Burns, PharmD [address] [place] [address] Pharmacist Internal Medicine 09/20/24 documented as of this encounter
--- OUTSIDE RECORDS SUMMARY | 2024-10-15 09:50 | XMS_ITS | Encounter Summary ---
Author Organization [employer] Address [address] [facility] 7t [place] [address] Care Team Providers Care Independent Film Maker Name Role Phone Pretty Molina MD Primary Care Provide r Guero Burns PharmD Unavailable [phone] Encounter Details Date Type Department Care Team (Latest Contact Info) Description 10/10/2024 Travel Social History Tobacco Use Types Packs/Day [...] Info) Description 10/23/2024 1:30 PM EDT Telemedicine [facility] [address] [place] [phone] Guero Burns, PharmD [address] [place] [phone] 12/05/2024 2:00 PM EDT Clinical Support [facility] [address] [place] [phone] Sandra Boyd, TONY documented as of this encounter Visit Diagnoses Not on filedocumented in this encounter Additional Health Concerns Assessment Noted Time PHQ-9 Depression Total Score: 4 01/06/20 24 2:22 PM EDT documented as of this encounter Care Teams Independent Film Maker Relationship Specialty Start Date End Date Pretty Molina MD [address] [place] [phone] PCP - General Family Medicine 12/24/20 Guero Burns, PharmD [address] [place] [address] [phone] Pharmacist Internal Medicine 09/20/24 documented as of this encounter
--- OUTSIDE RECORDS SUMMARY | 2024-10-15 09:50 | XMS_ITS | Encounter Summary ---
Author Organization [employer] Address [address] [facility] 7t [place] [address] Care Team Providers Care Actuarial Science Professor Name Role Phone Pretty Molina MD Primary Care Provide r Guero Burns PharmD Unavailable [phone] Reason for Visit * Reason Comments Med Refill Encounter Details Date Type Department Care Team (Late st Contact Info) Description 09/21/2024 Refill [facility] [address] [place] [address] Pretty Molina MD [address] [place], [place] [phone] Type 2 diabetes mellitus with hyperglycemia, without long-term current use of insulin ([facility]) Social History Tobacco Use Types Packs/Day Years [...] the past 12 months, has t he [employer], gas, oil or water company threatened to [...] Info) Description 10/23/2024 1:30 PM EDT Telemedicine [facility] [address] [place] [phone] Guero Burns, PoloD [address] [place] [phone] 12/05/2024 2:00 PM EDT Clinical Support [facility] [address] [place] [phone] Sandra Boyd, TONY documented as of this encounter Visit Diagnoses Diagnosis Type 2 diabetes mellitus with hyperglycemia, without long-term current use of insulin ([facility]) documented in this encounter Additional Health Concerns Assessment Noted Time PHQ-9 Depression Total Score: 4 01/06/20 24 2:22 PM EDT documented as of this encounter Care Teams Actuarial Science Professor Relationship Specialty Start Date End Date Pretty Molina MD [address] [place] [phone] PCP - General Family Medicine 12/24/20 Guero Burns, PoloD [address] [place] [phone] Pharmacist Internal Medicine 09/20/24 documented as of this encounter
--- OUTSIDE RECORDS SUMMARY | 2024-10-15 09:50 | XMS_ITS | Encounter Summary ---
Author Organization [employer] Address [address] [facility] 7t [place] [address] Care Team Providers Care Recovery Collector Name Role Phone Pretty Molina MD Primary Care Provide r Guero Burns PharmD Unavailable [phone] Reason for Visit * Reason Comments Med Refill Encounter Details Date Type Department Care Team (Late st Contact Info) Description 10/12/2024 Refill [facility] [address] [place] [address] Pretty Molina MD [address] [place] [address] Fibromyalgia Social History Tobacco Use Types Packs/Day Years [...] Info) Description 10/23/2024 1:30 PM EDT Telemedicine [facility] MEDICINE [address] [place] [phone] Guero Burns, Mario [address] [place] [phone] 12/05/2024 2:00 PM EDT Clinical Support [facility] MEDICINE [address] [place] [phone] Sandra Boyd, TONY documented as of this encounter Visit Diagnoses Diagnosis Fibromyalgia Unspecified myalgia and myositis documented in this encounter Additional Health Concerns Assessment Noted Time PHQ-9 Depression Total Score: 4 01/06/20 24 2:22 PM EDT documented as of this encounter Care Teams Recovery Collector Relationship Specialty Start Date End Date Pretty Molina MD [address] [place] [phone] PCP - General Family Medicine 12/24/20 Guero Burns, PharmD [address] [place] [address] Pharmacist Internal Medicine 09/20/24 documented as of this encounter
--- OUTSIDE RECORDS SUMMARY | 2024-10-15 09:51 | XMS_ITS | Encounter Summary ---
Author Organization [employer] Address 75 [facility] 7t [place] [address] Care Team Providers Care Agricultural Engineering Technician Name Role Phone Pretty Molina MD Primary Care Provide r uGero Burns PharmD Unavailable [phone] Reason for Visit * Reason Comments Med Refill Encounter Details Date Type Department Care Team (Late st Contact Info) Description 11/24/2022 Refill [facility] ADULT DENTAL [address] [place] [address] Eliezer Richardson DDS [address] [place] [address] Social History Tobacco Use Types Packs/Day Years [...] Info) Description 10/23/2024 1:30 PM EDT Telemedicine [facility] MEDICINE [address] [place] [phone] Guero Burns, PharmD [address] [place] [phone] 12/05/2024 2:00 PM EDT Clinical Support [facility]INE [address] [place] [address] [phone] Sandra Boyd, TONY documented as of this encounter Visit Diagnoses Not on filedocumented in this encounter Additional Health Concerns Assessment Noted Time PHQ-9 Depression Total Score: 12 023 3:08 PM EDT documented as of this encounter Care Teams Agricultural Engineering Technician Relationship Specialty Start Date End Date Pretty Molina MD [address] [place] [address] [phone] PCP - General Family Medicine 12/24/20 Guero Burns, PharmD [address] [place] [address] [phone] Pharmacist Internal Medicine 09/20/24 documented as of this encounter
--- OUTSIDE RECORDS SUMMARY | 2024-10-15 09:51 | XMS_ITS | Encounter Summary ---
Author Organization [employer] Address [address] [facility] 7t [place] [address] Care Team Providers Care Master Sonar Technician Name Role Phone Pretty Molina MD Primary Care Provide r Guero Burns PharmD Unavailable [phone] Reason for Visit * Reason Comments Med Refill Encounter Details Date Type Department Care Team (Late st Contact Info) Description 04/21/2024 Refill [facility] MED[facility] [address] [place] [address] Pretty Molina MD [address] [place] [address] Neuropathy Social History Tobacco Use Types Packs/Day [...] Info) Description 10/23/2024 1:30 PM EDT Telemedicine [facility] MED[facility] [address] [place] [address] Guero Burns, PoloD [address] [place] [phone] 12/05/2024 2:00 PM EDT Clinical Support [address] [address] Sandra Boyd RN documented as of this encounter Visit Diagnoses Diagnosis Neuropathy Mononeuritis of unspecified site documented in this encounter Additional Health Concerns Assessment Noted Time PHQ-9 Depression Total Score: 4 01/06/20 24 2:22 PM EDT documented as of this encounter Care Teams Master Sonar Technician Relationship Specialty Start Date End Date Pretty Molina MD [address] [place] [address] [phone] PCP - General Family Medicine 12/24/20 Guero Burns, PharmD [address] [place] [address] [phone] Pharmacist Internal Medicine 09/20/24 documented as of this encounter
--- OUTSIDE RECORDS SUMMARY | 2024-10-15 09:51 | XMS_ITS | Encounter Summary ---
Author Organization [employer] Address 75 [facility] 7t [place] [address] Care Team Providers Care Swing Grinder Name Role Phone Pretty Molina MD Primary Care Provide r Guero Burns PharmD Unavailable [phone] Reason for Visit * Reason Comments Med Refill Encounter Details Date Type Department Care Team ([facility] st Contact Info) Description 05/12/2023 Refill [facility] CHC MED & PEDS [address] [place] [address] Pretty Molina MD [address] [place] [address] Neuropathy Social History Tobacco Use Types Packs/Day [...] Info) Description 10/23/2024 1:30 PM EDT Telemedicine [address] [address] Guero Burns, Mario [address] [place] [address] 12/05/2024 2:00 PM EDT Clinical Support [facility] MEDICINE [address] [place] [address] Sandra Boyd, TONY documented as of this encounter Visit Diagnoses Diagnosis Neuropathy Mononeuritis of unspecified site documented in this encounter Additional Health Concerns Assessment Noted Time PHQ-9 Depression Total Score: 12 023 3:08 PM EDT documented as of this encounter Care Teams Swing Grinder Relationship Specialty Start Date End Date Pretty Molina MD [address] [place] [address] PCP - General Family Medicine 12/24/20 Guero Burns, PharmD [address] [place] [address] [phone] Pharmacist Internal Medicine 09/20/24 documented as of this encounter
--- OUTSIDE RECORDS SUMMARY | 2024-10-15 09:51 | XMS_ITS | Encounter Summary ---
Author Organization [employer] Address 75 [facility] 7t [place] [address] Care Team Providers Care Loop Tacker Name Role Phone Pretty Molina MD Primary Care Provide r Guero Burns PharmD Unavailable [phone] Reason for Visit * Reason Comments Med Refill Encounter Details Date Type Department Care Team (Late st Contact Info) Description 06/11/2022 Refill [facility] MEDICINE [address] [place] [address] Yasmine Hernandez MD [address] [place] [address] Chronic pain syndrome Social History Tobacco Use [...] Cedillo RN - 06/15/2022 10:45 AM EST Drier Helper ck 06/15/22. documented in this encounter Plan of Treatment Upcoming Encounters Date Type Department Care Team (Late st Contact Info) Description 10/23/2024 1:30 PM EDT Telemedicine [facility] MEDICINE [address] [place] [address] Guero Burns, PharmD [address] [place] [address] 12/05/2024 2:00 PM EDT Clinical Support [facility] MEDICINE [address] [place] [address] [phone] Sandra Boyd RN documented as of this encounter Visit Diagnoses Diagnosis Chronic pain syndrome documented in this encounter Care Teams Loop Tacker Relationship Specialty Start Date End Date Pretty Molina MD [address] [place] [phone] PCP - General Family Medicine 12/24/20 Guero Burns, PharmD [address] [place] [phone] Pharmacist Internal Medicine 09/20/24 documented as of this encounter
--- OUTSIDE RECORDS SUMMARY | 2024-10-15 09:51 | XMS_ITS | Encounter Summary ---
Author Organization [employer] Address 75 [facility] 7t [place] [address] Care Team Providers Care Wastewater Manager Name Role Phone Pretty Molina MD Primary Care Provide r Guero Burns PharmD Unavailable [phone] Reason for Visit * Reason Onset Date Comments Nurse Triage 04/26/2024 Encounter Details Date Type Department Care Team (Late st Contact Info) Description 04/26/2024 Telephone [facility] MEDICINE 230 [place] [address] Pretty Molina MD 230 [place] [address] Nurse Triage Social History Tobacco Use Types [...] 12:18 PM EST Please obtain note from [facility] ED visit 04/24/24, Upcoming appt with PCP tomorrow at 11am. * Telephone Encounter - Valeria Hooper LPN - 04/26/2024 11:58 AM EST Triage call returned with BLS #[id number] Yonathan. Patient reports that she was seen on 04/19/24. Patient is reporting following her Flu shot she has been feeling delicate . Chart shows Flu given in March. Call dropped. Return call with Paint Spraying Machine Operator Helper Neto Mercedes. Patient reports seen at [facility] and not improved with cough and congestion. Has no reported fever. Patient then reports presented to [facility] ED on 04/24/24 and was given scan [...] caller accepted this outcome. Contact pt at [phone] documented in this encounter Plan of Treatment Upcoming Encounters Date Type Department Care Team (Late st Contact Info) Description 10/23/2024 1:30 PM EDT Telemedicine [address] [address] Guero Burns, PharmD [address] [place] [address] 12/05/2024 2:00 PM EDT Clinical Support [facility] MEDICINE [address] [place] [address] Sandra Boyd RN documented as of this encounter Visit Diagnoses Not on filedocumented in this encounter Additional Health Concerns Assessment Noted Time PHQ-9 Depression Total Score: 4 01/06/20 24 2:22 PM EDT documented as of this encounter Care Teams Wastewater Manager Relationship Specialty Start Date End Date Pretty Molina MD [address] [place] [phone] PCP - General Family Medicine 12/24/20 Guero Burns, PharmD [address] [place] [address] [place] [phone] Pharmacist Internal Medicine 09/20/24 documented as of this encounter
--- OUTSIDE RECORDS SUMMARY | 2024-10-15 09:51 | XMS_ITS | Encounter Summary ---
Author Organization [employer] Address 75 [facility] 7t [place] [address] Care Team Providers Care Pick Out Hand Name Role Phone Pretty Molina MD Primary Care Provide r Guero Burns PharmD Unavailable [phone] Reason for Visit * Reason Onset Date Comments Med Refill 06/10/2022 Encounter Details Date Type Department Care Team (Late st Contact Info) Description 06/10/2022 Refill [facility] MEDICINE [address] [place] [address] Pretty Molina MD 230 [place] [address] Social History Tobacco Use Types Packs/Day Years [...] Info) Description 10/23/2024 1:30 PM EDT Telemedicine [address] [address] Guero Burns, PharmD [address] [place] [address] 12/05/2024 2:00 PM EDT Clinical Support [address] [address] Sandra Boyd RN documented as of this encounter Visit Diagnoses Not on filedocumented in this encounter Care Teams Pick Out Hand Relationship Specialty Start Date End Date Pretty Molina MD [address] [place] [address] [phone] PCP - General Family Medicine 12/24/20 Guero Burns, PharmD [address] [place] [address] [phone] Pharmacist Internal Medicine 09/20/24 documented as of this encounter
--- OUTSIDE RECORDS SUMMARY | 2024-10-15 09:51 | XMS_ITS | Encounter Summary ---
Author Organization [employer] Address 75 [facility] 7t [place] [address] Care Team Providers Care Java Sql Developer Name Role Phone Pretty Molina MD Primary Care Provide r Guero Burns PharmD Unavailable [phone] Reason for Visit * Reason Comments Med Refill Encounter Details Date Type Department Care Team (Late st Contact Info) Description 07/01/[address] [facility] MEDICINE [address] [place] [address] Keysha Nagel, YOLETTE [address] [place] [address] Social History Tobacco Use Types Packs/Day Years [...] Info) Description 10/23/2024 1:30 PM EDT Telemedicine [facility] MEDICINE [address] [place] [address] Guero Burns, PharmD [address] [place] [address] 12/05/2024 2:00 PM EDT Clinical Support [facility] MEDICINE [address] [place] [phone] Sandra Boyd RN documented as of this encounter Visit Diagnoses Not on filedocumented in this encounter Additional Health Concerns Assessment Noted Time PHQ-9 Depression Total Score: 4 01/06/20 24 2:22 PM EDT documented as of this encounter Care Teams Java Sql Developer Relationship Specialty Start Date End Date Pretty Molina MD [address] [place] [address] [phone] PCP - General Family Medicine 12/24/20 Guero Burns, PharmD [address] [place] [phone] Pharmacist Internal Medicine 09/20/24 documented as of this encounter
--- OUTSIDE RECORDS SUMMARY | 2024-10-15 09:51 | XMS_ITS | Encounter Summary ---
Author Organization [employer] Address [address] [place] [address] 7t [place] [address] Care Team Providers Care Feller Operator Name Role Phone Pretty Molina MD Primary Care Provide r Guero Burns PharmD Unavailable [phone] Encounter Details Date Type Department Care Team (Late st Contact Info) Description 07/12/2022 Orders Only [facility] CHC MED & PEDS [address] [place] [address] Jocelyn Fleming LPN Social History Tobacco Use [...] Info) Description 10/23/2024 1:30 PM EDT Telemedicine [facility] MEDICINE [address] [place] [address] Guero Burns, PharmD [address] [place], [place] [phone] 12/05/2024 2:00 PM EDT Clinical Support [address] [address] Sandra Boyd RN documented as of this encounter Visit Diagnoses Not on filedocumented in this encounter Care Teams Feller Operator Relationship Specialty Start Date End Date Pretty Molina MD [address] [place] [address] PCP - General Family Medicine 12/24/20 Guero Burns, PharmD [address] [place] [address] Pharmacist Internal Medicine 09/20/24 documented as of this encounter
--- OUTSIDE RECORDS SUMMARY | 2024-10-15 09:51 | XMS_ITS | Encounter Summary ---
Author Organization [employer] Address 75 [facility] 7t [place] [address] Care Team Providers Care Securities Underwriter Name Role Phone Pretty Molina MD Primary Care Provide r Guero Burns PharmD Unavailable [phone] Encounter Details Date Type Department Care Team (Latest Contact Info) Description 2019 Abstract [facility] CONVERSIONS Dental, Provider, DDS Social History [...] Info) Description 10/23/2024 1:30 PM EDT Telemedicine [facility] MEDICINE [address] [place] [address] Guero Burns, PharmD [address] [place] [address] 12/05/2024 2:00 PM EDT Clinical Support [facility] MEDICINE [address] [place] [address] Sandra Boyd, RN documented as of this encounter Visit Diagnoses Not on filedocumented in this encounter Care Teams Securities Underwriter Relationship Specialty Start Date End Date Pretty Molina MD [address] [place] [address] PCP - General Family Medicine 12/24/20 Guero Burns, PharmD [address] [place] [phone] Pharmacist Internal Medicine 09/20/24 documented as of this encounter
--- OUTSIDE RECORDS SUMMARY | 2024-10-15 09:51 | XMS_ITS | Encounter Summary ---
Author Organization [employer] Address 75 [facility] 7t [place] [address] Care Team Providers Care Gang Boss Name Role Phone Pretty Molina MD Primary Care Provide r Guero Burns PharmD Unavailable [phone] Reason for Visit * Reason Comments Med Refill Encounter Details Date Type Department Care Team (Late st Contact Info) Description 07/05/2023 Refill [facility] CHC MED & PEDS [address] [place] [address] Pretty Molina MD [address] [place] [address] Social History Tobacco Use Types Packs/Day Years [...] Info) Description 10/23/2024 1:30 PM EDT Telemedicine [address] [address] Guero Burns, PoloD [address] [place] [address] 12/05/2024 2:00 PM EDT Clinical Support [facility] MEDICINE [address] [place] [address] Sandra Boyd, TONY documented as of this encounter Visit Diagnoses Not on filedocumented in this encounter Additional Health Concerns Assessment Noted Time PHQ-9 Depression Total Score: 12 023 3:08 PM EDT documented as of this encounter Care Teams Gang Boss Relationship Specialty Start Date End Date Pretty Molina MD [address] [place] [address] PCP - General Family Medicine 12/24/20 Guero Burns, PharmD [address] [place] [phone] Pharmacist Internal Medicine 09/20/24 documented as of this encounter
--- OUTSIDE RECORDS SUMMARY | 2024-10-15 09:51 | XMS_ITS | Encounter Summary ---
Author Organization [employer] Address 75 [facility] 7t [place] [address] Care Team Providers Care Hop Picker Name Role Phone Pretty Molina MD Primary Care Provide r Guero Burns PharmD Unavailable [phone] Reason for Visit * Reason Comments Med Refill Encounter Details Date Type Department Care Team (Late Contact Info) Description 02/28/2023 Refill [facility] MEDICINE [address] [place] [address] Pretty Molina MD [address] [place] [address] Social History Tobacco Use Types Packs/Day Years [...] Info) Description 10/23/2024 1:30 PM EDT Telemedicine [facility] MEDICINE [address] [place], [place] [phone] Guero Burns, PharmD [address] [place] [address] 12/05/2024 2:00 PM EDT Clinical Support [facility] MEDICINE [address] [place] [address] Sandra Boyd, RN documented as of this encounter Visit Diagnoses Not on filedocumented in this encounter Additional Health Concerns Assessment Noted Time PHQ-9 Depression Total Score: 12 023 3:08 PM EDT documented as of this encounter Care Teams Hop Picker Relationship Specialty Start Date End Date Pretty Molina MD [address] [place] [address] PCP - General Family Medicine 12/24/20 Guero Burns, PharmD [address] [place] [phone] Pharmacist Internal Medicine 09/20/24 documented as of this encounter
--- OUTSIDE RECORDS SUMMARY | 2024-10-15 09:51 | XMS_ITS | Encounter Summary ---
Author Organization [employer] Address 75 [facility] 7t [place] [address] Care Team Providers Care Manager Of Financial Reporting Name Role Phone Pretty Molina MD Primary Care Provide r Guero Burns PharmD Unavailable [phone] Reason for Visit * Reason Comments Med Refill Encounter Details Date Type Department Care Team ([facility] st Contact Info) Description 06/06/2024 Refill [facility] CHC MED & PEDS [address] [place] [address] Pretty Molina MD [address] [place] [address] Type 2 diabetes mellitus with hyperglycemia, without long-term current use of insulin ([facility]) Social History Tobacco Use Types Packs/Day [...] Info) Description 10/23/2024 1:30 PM EDT Telemedicine [address] [address] Guero Burns PharmD [address] [place] [address] 12/05/2024 2:00 PM EDT Clinical Support [address] [address] Sandra Boyd RN documented as of this encounter Visit Diagnoses Diagnosis Type 2 diabetes mellitus with hyperglycemia, without long-term current use of insulin ([facility]) documented in this encounter Additional Health Concerns Assessment Noted Time PHQ-9 Depression Total Score: 4 01/06/20 24 2:22 PM EDT documented as of this encounter Care Teams Manager Of Financial Reporting Relationship Specialty Start Date End Date Pretty Molina MD [address] [place] [phone] PCP - General Family Medicine 12/24/20 Guero Burns, PharmD [address] [place] [phone] Pharmacist Internal Medicine 09/20/24 documented as of this encounter
--- OUTSIDE RECORDS SUMMARY | 2024-10-15 09:51 | XMS_ITS | Clinical Summary ---
Author Organization [address] [facility] Address [address] [place] [address] Phone Care Team Providers Care Terra Cotta Roofer [...] by mouth 2 times daily. Active ceramide 1,3,6-NK-laqb-hyal ur (CeraVe PM) lotion,extended release Apply topically. [...] testing completed and was unremarkable Morbid obesity ([facility] V24, [facility] V28) 2018 Type 2 diabetes mellitus ([facility] V24, [facility] V 28) 01/23/2019 Surgical History Surgery Date Site/Laterality Comments TUBAL LIGATION PROCEDURE: HISTORICAL TUBAL LIGATION OTHER SURGICAL HISTORY PROCEDURE: CT GRAFT COMPOSITE W/PRIMARY CLOSURE DONOR AREA Medical History Medical History Date Comments HTN (hypertension) DX:HTN (hyper tension) Depression DX:Depression Chronic pain DX:Chronic pain Obesity DX:Obesity 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[facility] V24, [facility] V28) DX:Microalbuminuric diabeti c nephropathy ([facility]) Hyperlipidemia DX:Hyperlipidemi a Carpal tunnel syndrome, bilateral DX:Carpal tunnel syndrome, bilateral Type 2 diabetes mellitus ( S/[facility] V24, [facility] V28) DX:Type 2 diabetes mellitus ([facility]) IBS (irritable bowel syndrome) D X:IBS [...] BMP Blood Test (01/10/2024) Pathologist [facility] Annual BMP Blood Test abstracted [facility] Provider HEALTH MAINTENANCE Final Result * Lipid panel (01/10/2024) [facility] Triglycerides 0 mg/dL Comment:no interpretation Cholesterol 0 mg/dL Comment:no interpretation HDL 0 mg/dL Comment:no interpretation LDL Cholesterol 0 mg/dL Comment:no interpretation Blood Venous blood specimen / Unknown [facility] Provider LAB BLOOD ORDERABLES Teresa l Result * Cervical Cancer Screening: HPV (04/18/2023) [facility] Cervical Cancer Screening: HPV No interpreta tion,abstr acted [facility] Provider [facility] Final Result * Hemoglobin A1c (07/20/2021) [facility] Hemoglobin A1C 0.0 % Comment:no interpretation Blood Venous blood specimen / Unknown [facility] Provider LAB BLOOD ORDERABLES Teresa l Result from Last 3 Months or Most Recently Relevant to Health Maintenance Insurance [place] Care Teams Terra Cotta Roofer Helper Relationship Specialty Start Date End Date Pretty Molina MD [address] [place] [phone] PCP - General 06/01/23
--- OUTSIDE RECORDS SUMMARY | 2024-10-15 09:51 | XMS_ITS | Clinical Summary ---
Author Organization [employer] Address [address] [place] [address] Care Team Providers Care Boiler Coverer Name Role Phone Pretty Molina MD Primary Care Provide r Guero Burns PharmD Unavailable [phone] Allergies Active Allergy Reactions Criticality Noted Date Comments Morphine Palpitations Low 06/25/2022 tachycardia Medications hydrocortisone (Anusol-HC) 2.5 % rectal creamIndication s:Hemorrhoids, unspecified hemorrhoid type Apply a thin layer to affected area(s)twice daily to four times daily as needed 30 g 023 Active Blood Glucose Monitoring Suppl (FreeStyle Lite) w/Device kitIndications: Type 2 diabetes mellitus with hyperglycemia, without long-term current use of insulin ([facility]) 1 kit 2 times daily. To monitor blood glucose. 1 kit 023 Active SF 5000 Plus 1.1 % cream USE AT BEDTIME DO NOT RINSE FOR 30 MINUTES 51 g 023 Active Blood Pressure Monitoring (B-D ASSURE BPM/AUTO WRIST CUFF) miscIndications :Essential hypertension 1 each Once daily. 1 each [...] 11 024 Active atorvastatin (Lipitor) 80 MG tabletIndicatio ns:Essential hypertension Take 1 tablet (80 mg) by mouth Once per day. 30 tablet 11 024 2024 Active fluticasone (Flonase) 50 MCG/ACT nasal sprayIndication s:Cough in adult patient INHALE 2 SPRAYS IN EACH NOSTRIL ONCE DAILY 48 g 1 024 Active cholecalciferol (D3-1000) 25 MCG (1000 UT) capsuleIndicati ons:Vitamin D deficiency TAKE 1 CAPSULE BY MOUTH EVERY MORNING 90 capsule 1 024 Active albuterol (2.5 MG/3ML) 0.083% nebulizer solution INHALE 1 AMPULE USING A NEBULIZER EVERY 6 HOURS NEEDED 90 mL 3 024 Active Jardiance 25 MGIndications:T ype 2 diabetes mellitus with other specified complication, unspecified whether fdc insulin use ([facility]) TAKE 1 TABLET BY MOUTH EVERY MORNING 90 tablet 1 024 Active omeprazole (PriLOSEC) [address] capsule TAKE 1 CAPSULE BY MOUTH EVERY MORNING 90 capsule 1 024 Active hydroCHLOROthia zide 12.5 MG tabletIndicatio ns:Primary hypertension TAKE 1 TABLET BY MOUTH EVERY MORNING (CALL IF BLOOD PRESSURE CONTINUAMENTE >140/90) 90 tablet 1 025 Active polyvinyl alcohol (Liquifilm Tears) 1.4 % ophthalmic solutionIndicat ions:Dry eye syndrome of bilateral lacrimal glands PLACE [...] XL (Procardia XL) 60 MG 24 hr tabletIndicatio ns:Essential hypertension TAKE 1 TABLET BY MOUTH EVERYDAY AT NOON 90 tablet 3 025 Active albuterol (Ventolin HFA) 108 (90 Base) MCG/ACT inhaler INHALE 2 PUFFS BY MOUTH EVERY 4 TO 6 HOURS NEEDED 18 g 3 Active gabapentin (Neurontin) 300 MG capsuleIndicati ons:Neuropathy TAKE 2 CAPSULES BY MOUTH THREE TIMES DAILY IN THE MORNING, EVENING AND BEDTIME 180 capsule 1 Active ammonium lactate (Lac-Hydrin) 12 % [...] NEEDED Active nicotine (Nicoderm CQ) 14 MG/24HR patchIndication s:Tobacco dependence Place 1 patch on the skin 1 (one) time each day at the same time. 21 patch 1 Active nicotine polacrilex (FT Nicotine) 4 MG lozengeIndicati ons:Tobacco dependence Dissolve 1 lozenge (4 mg) in the mouth every 1-2 hours if needed for smoking cessation. 144 lozenge 1 Active glipiZIDE (Glucotrol) 10 MG tabletIndicatio ns:Diabetes mellitus type 2 in nonobese (CMS/HCC) TAKE 1 TABLET BY MOUTH EVERY MORNING BEFORE BREAKFAST 90 tablet 3 Active losartan (Cozaar) 100 MG tabletIndicatio ns:Primary hypertension TAKE 1 TABLET BY MOUTH EVERY MORNING 90 tablet 3 025 Active cetirizine (ZyrTEC) 10 MG tabletIndicatio ns:Seasonal allergies Take 1 tablet (10 mg) by mouth in the morning. 90 tablet Active Dulaglutide (Trulicity) 1.5 MG/0.5ML solution auto-injectorIn dications:Type 2 diabetes mellitus with hyperglycemia, without long-term current use of insulin ([facility]) Inject 1.5 mg under the skin 1 (one) time per week. INJECT ONE PEN (=1.5MG) SUBCUTANEOUSLY ONCE A WEEK DIRECTED 2 mL 1 Active oxyCODONE-aceta minophen (Percocet) 5-325 MG tabletIndicatio ns:Other chronic pain Take 1 tablet by mouth every 12 (twelve) hours if needed for severe pain. 56 tablet Active Diclofenac Sodium 1 % gelIndications: Fibromyalgia APPLY 2 GRAMS TOPICALLY TO AFFECTED AREA(S) EVERY TWELVE HOURS 100 g 1 Active dextran 70-hypromellose (artificial tears) 0.1-0.3 % ophthalmic solutionIndicat ions:Dry eyes Administer 1 drop into both eyes if needed in the morning, at noon, and at bedtime for dry eyes. 30 mL 024 2024 losartan (Cozaar) 100 MG tabletIndicatio ns:Primary hypertension TAKE 1 TABLET BY MOUTH EVERY MORNING 90 tablet 3 024 2024 Discontinued glipiZIDE (Glucotrol) 10 MG tabletIndicatio ns:Diabetes mellitus type 2 in nonobese ([facility]/HCC) TAKE 1 TABLET BY MOUTH EVERY MORNING BEFORE BREAKFAST 90 tablet 3 024 2024 Discontinued cetirizine (ZyrTEC) 10 MG tabletIndicatio ns:Seasonal allergies TAKE 1 TABLET BY MOUTH EVERY MORNING 90 tablet 025 2024 Discontinued(R eorder (will not trigger notification to Pharmacy)) Trulicity 1.5 MG/0.5ML solution auto-injectorIn dications:Type 2 diabetes mellitus with hyperglycemia, without long-term current use of insulin ([facility]) INJECT ONE PEN (=1.5MG) SUBCUTANEOUSLY ONCE A WEEK DIRECTED 2 mL 1 025 2024 Discontinued(R eorder (will not trigger notification to Pharmacy)) oxyCODONE-aceta minophen (Percocet) 5-325 MG tabletIndicatio ns:Other chronic pain TAKE 1 TABLET BY MOUTH EVERY TWELVE HOURS NEEDED FOR SEVERE PAIN 56 tablet 025 2024 Discontinued(R eorder (will not trigger notification to Pharmacy)) Diclofenac Sodium 1 % gelIndications: Fibromyalgia Apply 1 Application topically 2 times daily. APPLY 2 GRAMS TOPICALLY TO AFFECTED AREA(S) EVERY TWELVE HOURS NEEDED 100 g 1 025 2024 Discontinued Active Problems Problem Noted Date Diagnosed Date Bladder pain 10/10/2024 Varicose veins of both lower extremities with pa in 10/10/2024 Assessment & Plan (10/10/2024 12:32 PM EDT): I will refer patient to vascular specialist Numbness and tingling 10/10/2024 Lipoma 10/10/2024 Encounter for screening mamm ogram for malignant [...] use of insulin 05/23/2018 Assessment & Plan (10/10/2024 12:33 PM EDT): Diabetes is: controlled - Lab Results Component Value Date HGBA1C 6.4 (A) 10/10/2024 HGBA1C 6.9 (A) 04/05/2024 HGBA1C 6.5 (A) 01/06/2024 - Lab Results Component Value Date MICROALBUR 204.8 07/20/2021 CREATININE 0.75 07/20/2024 -Changes: None - Diabetic eye exam: Up-to-date - Diabetic foot exam: Pending - Continue lifestyle modifications - Continue current medications - Follow up: 3 months Assessment & Plan (06/11/2024 4:02 PM EST): [...] contracture of upper arm 06/01/2013 Hypertension 06/01/2013 Assessment & Plan (10/10/2024 12:32 PM EDT): I advised: - Aerobic exercise to reduce [...] prescriptions without first consulting health care provider Morbid obesity 06/01/2013 Chronic pain 06/01/2013 Depressive disorder 06/01/2013 Encounters Date Type Department Care Team Description 10/12/2024 Refill [facility] [address] [place] [address] Pretty Molina MD Fibromyalgia 10/10/2024 10:30 AM EDT Office Visit [facility] [address] [place] [address] Pretty Molina MD Bladder pain (Primary Dx); Type 2 diabetes mellitus with hyperglycemia, without long-term current use of insulin ([facility]/HCC); Varicose veins of both lower extremities with pain; Numbness and tingling; Primary hypertension; Lipoma of other specified sites 10/10/2024 Travel 10/08/2024 Refill [facility] [address] [place] [address] Guero Burns PharmD Tobacco dependence 10/04/2024 11:30 AM EDT Telemedicine [facility] [address] [place] [phone] Guero Burns, PharmD Tobacco dependence (Primary Dx) 10/04/2024 Travel 10/03/2024 Patient Outreach [facility] [address] [place] [phone] Pretty Molina MD Pre-visit Planning (Pre visit planning LVM ) 10/03/2024 Refill [facility] [address] [place] [address] Pretty Molina MD Other chronic pain 10/03/2024 Refill [facility] [address] [place] [address] Pretty Molina MD Type 2 diabetes mellitus with hyperglycemia, without long-term current use of insulin (CMS/HCC) 09/21/2024 Refill [facility] [address] [place] [phone] Pretty Molina MD Type 2 diabetes mellitus with hyperglycemia, without long-term current use of insulin (CMS/HCC) 09/17/2024 1:30 PM EDT Telemedicine [facility] [address] [place] [phone] Guero Burns PharmD Tobacco dependence (Primary Dx) 09/17/2024 Travel 09/16/2024 Refill [facility] [address] [place] [address] Pretty Molina MD Diabetes mellitus type 2 in nonobese (CMS/HCC); Primary hypertension; Seasonal allergies 09/13/2024 Patient Outreach [facility] [address] [place] [phone] Pretty Molina MD Care Coordination ([facility] f/u) 09/11/2024 Travel 09/03/2024 Refill [facility] [address] [place] [address] Pretty Molina MD Fibromyalgia 08/31/2024 Refill [facility] [address] [place] [address] Pretty Molina MD Other chronic pain 08/31/2024 Patient Outreach [facility] [address] [place] [address] Pretty Molina MD Care Coordination (SDOH) 08/24/2024 Population Health Risk Score [facility] [address] [place] [phone] Provider, Population Health Generic 08/19/2024 Refill [facility] [address] [place] [address] Pretty Molina MD Neuropathy 08/17/2024 Refill [facility] [address] [place] [address] Pretty Molina MD 08/16/2024 Patient Outreach [facility] [address] [place] [address] Pretty Molina MD Care Coordination (SDOH) 08/16/2024 Orders Only GENERIC EXTERNAL DATA DEPARTMENT Provider, Generic External Data 08/15/2024 Refill [facility] [address] [place] [phone] Pretty Molina MD Essential hypertension 08/09/2024 Patient Outreach [facility] [address] [place] [phone] Pretty Molina MD Care Coordination (SDOH f/u) 08/06/2024 Refill [facility] [address] [place] [address] Pretty Molina MD Other chronic pain 08/02/2024 Patient Outreach [facility] [address] [place] [phone] Pretty Molina MD Care Coordination (SDOH) 08/02/2024 Patient Outreach [facility] [address] [place] [phone] Pretty Molina MD Care Coordination ([facility]) 07/30/2024 Refill [facility] [address] [place] [address] Pretty Molina MD Type 2 diabetes mellitus with hyperglycemia, without long-term current use of insulin ([facility]) 07/27/2024 Patient Outreach [facility] [address] [place] [address] Pretty Molina MD Care Coordination (SDCA) 07/27/2024 Refill [facility] [address] [place] [address] Pretty Molina MD 07/20/2024 Orders Only GENERIC EXTERNAL DATA DEPARTMENT Provider, Generic External Data 07/19/2024 Refill [facility] [address] [place] [address] Pretty Molina MD 07/18/2024 Orders Only GENERIC EXTERNAL DATA DEPARTMENT Provider, Generic External Data 07/18/2024 Refill [facility] [address] [place] [address] Pretty Molina MD Dry eye syndrome of [...] 18 10/10/2024 10:13 AM EDT Oxygen Saturation 99% 04/27/2024 11:19 AM EST Inhaled Oxygen Concentration - - Weight 95.4 kg (210 lb 6.4 oz) 10/10/2024 10:13 AM EDT Height 157.5 cm (5' 2 ) 10/10/2024 10:13 AM EDT Body Mass Index 38.48 10/10/2024 10:13 AM EDT Plan of Treatment Upcoming Encounters Date Type Department Care Team (Late st Contact Info) Description 10/23/2024 1:30 PM EDT Telemedicine [facility] [address] [place] [address] Guero Burns, PharmD [address] [place] [address] 12/05/2024 2:00 PM EDT Clinical Support [facility] [address] [place] [address] Sandra Boyd, RN Health Maintenance Due Date Last Done Comments CT Colonography 1960 Colonoscopy 1961 Colorectal Cancer Screening 1960 FIT DNA/Cologuard 1961 FIT 1961 FOBT 1960 Sigmoidoscopy 1961 Diabetes: Foot Exam 1971 Eye Exam 1971 Pneumococcal Vaccine: 50+ Years (1 of 2 - PCV) 1980 Lung Cancer Screening 2011 COVID-19 Vaccine ( season) 2024 10/30/2020, 10/02/2020 SDOH Screening 12/27/2024 12/28/2023 Depression Screening 01/05/2025 01/06/2024, 01/06/20 Diabetes: Hemoglobin A1C 04/11/202510/10/ 025, 04/05/2024, 01/06/2024, Additional history exists Mammogram 07/25/2025 07/25/2024, 09/2022, 03/10/2022, Additional history exists Lipid Panel 08/16/2025 08/16/2024, 12/13, 10/11/2022, Additional history exists Alcohol/Substance Use Screening 10/10/2025 10/10/2024 Tobacco Screening 10/10/2025 10/10/2024 DTaP/Tdap/Td Vaccines (2 - Td or Tdap) [...] hyperglycemia, without long-term current use of insulin ([facility]) POCT GLUCOSE Routine 10/10/2024 10:14 AM EDT Type 2 diabetes mellitus with hyperglycemia, without long-term current use of insulin (CMS/[facility]) HEMATOXYLIN AND EOSIN STAIN Routine 08/16/2024 11:21 [...] EOSIN STAIN Routine 07/18/2024 12:02 PM EST HPV MRNA E6/E7 REFLEX TO HPV 16, 18/45 Routine 04/18/2023 2:08 PM EST PAP SMEAR Routine 04/18/2023 2:08 PM EST ZZZ HISTORICAL HEPATITIS C ANTIBODY Routine 02/03/2021 12:01 PM EDT from Last 3 Months or Most Recently Relevant to Health Maintenance Results * (ABNORMAL) POCT HGB A1C (10/10/2024 10:14 AM EDT) Hemoglobin A1C 6.4(A) 4.0 - 6.0 % QC Media Lot # [id number] Lot# Expiration Date , Blood 10/10/2024 10:1 4 AM EDT Pretty Zayas MD POINT OF CARE TEST EN TER/EDIT ORDERABLES Final Result * POCT Glucose (10/10/2024 10:14 AM EDT) Glucose Blood, POC 177 60 - 200 mg/dL Comment:random QC Media Lot # [id number] Lot# Expiration Date Blood Capillary blood specimen / Unknown 10/10/2024 10:14 AM EDT us Pretty Zayas MD POINT OF CARE TEST EN TER/EDIT ORDERABLES Final Result * Hematoxylin and Eosin Stain (08/16/2024 11:21 AM EST) Only the most recent of2 resultswithin the time period is included. 08/16/2024 11:2 1 AM EST 08/16/2024 1:11 PM EST Sridhar [facility] - 08/17/2024 4:59 PM EST ----- ------- Name: Violet Pascal ? Age/Sex: 64/F ? : 1960 Unit#: [id number] ?? Attend Dr: Ramesh Gurrola MD ?Re08/16/24 ?Status: DEP SDC ? Location: HO.SSS ?Disch: ? ----- ------- SPEC : [id number] ? RECD: 08/16/24-1310 ? STATUS: ??SOUT ? REQ NUM: [id number] ? YASMINE: 08/16/24-1121 ? SUBM DR: Ramesh Gurrola MD ? ENTERED: ??08/16/24-4 ?SP TYPE: Surgical ? OTHR DR: Pretty [...] microscopic examination, multiple pieces in cassette A. ??([facility]) Copies To: ?? Pretty Molina MD ?? [facility] ?? [address] ?? [place] [address] ?? [phone] ?? Ramesh Gurrola MD ?? [facility] ?? [address] ?? [place] [address] ?? [phone] ? CONTINUED ON NEXT PAGE ----- ------- Name: Violet Pascal ? Age/Sex: 64/F ? : 1960 Unit#: [id number] ?? Attend Dr: Ramesh Gurrola MD ?Re08/16/24 ?Status: DEP SDC ? Location: HO.SSS ?Disch: ? ----- ------- SPEC : [id number] ? RECD: 08/16/24 ? STATUS: ??SOUT ? REQ NUM: [id number] ? YASMINE: 08/16/24-1120 ? SUBM DR: Ramesh Gurrola MD ? ENTERED: ??08/16/24-1313 ?SP TYPE: Surgical ? OTHR DR: Pretty Molina MD ? ORDERED: ??HE Stain/2, Gross Micro L4 ? ----- ------- Signed (signature on file) Wally Harding MD 08/17/241658 ? ----- ------- ? END OF REPORT ? us Generic External Data Provider LAB BLOOD ORDERAB LES Final Result [facility] [address] [place] [phone] * (ABNORMAL) Glucose, Whole Blood (08/16/2024 10:29 AM EST) Glucose, Whole Blood 150(H) 60 - 115 mg/dL [facility] Comment:METER #: [id number] 08/16/2024 10:2 9 AM EST 08/16/2024 10:33 AM EST Generic External Data Provider LAB BLOOD ORDERAB LES Final Result Performing Organization Address [facility] de Phone Number [facility] [address] [place] [address] [phone] * Lipid Panel, Standard (08/16/2024 9:01 AM EST) Triglycerides 106 <150 mg/dL [facility] Comment:Desirable Triglyceri de: less than 150 mg/dLBorderline High Triglyceride 150-199 mg/dLHigh Triglyceride: 200-499 mg/dLVery High Triglyceride: greater than or equal to 5OO mg/dL Cholesterol 148 <200 mg/dL [facility] Comment:Desirable Cholestero l: less than 200 mg/dLBorderline High Cholesterol: 200-239 mg/dLHigh Cholesterol: greater than 239 mg/dL LDL Cholesterol Calculated 81 <100 mg/dL [facility] Comment:Desirable LDL: less than 100 mg/dLNear Optimal/Above Optimal LDL: 110- 129 mg/dLBorderline High LDL: 130-159 mg/dLHigh LDL: 160-189 mg/dLVery High LDL: greater than or equal to 190 mg/dL HDL Cholesterol 46 >40 mg/dL [facility] Comment:Desirable HDL: great er than 40 mg/dL Note: This HDL assay may give artificially low results in patients with liver disease. 08/16/2024 9:01 AM EST 08/16/2024 9:01 AM EST us Generic External Data Provider LAB BLOOD ORDERAB LES Final Result Performing Organization Address [facility] Co de Phone Number [facility] [address] [place] [address] [phone] * BI Mammogram Screening Tomosynthesis Bilateral (07/25/2024 2:30 PM EST) Anatomical Region Laterality Modality Breast Bilateral Mammography 07/25/2024 2:30 PM EST Narrative 08/03/2024 4:35 PM EST ? [facility] ? [address] ?[place] [address] ? Mammography Report ? Signed ? Patient: Pascal,Fredevinda ?MR#: [id number] ?? [id number] ? : 1960 ?Acct:[id number] ? Age/Sex: 64 / F ?ADM Date: 07/25/24 ? Loc: HO.MAMMO ? Attending Dr: Pretty Zayas MD ? Ordering Physician: Pretty Molina MD ?Results: ?? 2Benign Findings ? Date of Service: 07/25/24 ?Follow Up: 1 Year From Orig ?? inal Mammogram ? Procedure(s): MM tomosynthesis screening BI ?? Accession Number(s): [id number] ? cc: Pretty Molina MD ? EXAMINATION: [...] DD/ 1430 ? TD/TT: 07/25/24 1446 ? [employer]: ? Procedure Note Donfabiolajosiemehnazter, Image - 08/03/2024 [facility] [address] [place] [address] Mammography Report Signed Patient: Abraham Pascal#: [id number] : 1960cct:[id number] Age/Sex: 64 / FADM Date: 07/25/24 Loc: HO.MAMMO Attending Dr: Pretty Zayas MD Ordering Physician: Pretty Molina MDResults: 2Benign Findings Date of Service: 07/25/24Follow Up: 1 Year From [facility] Mammogram Procedure(s): MM tomosynthesis screening BI Accession Number(s): [id number] cc: Pretty Molina MD EXAMINATION: MM SCREENING [...] 08/03/24 1632 DD/ 1430 TD/TT: 07/25/24 1446 [employer]: us Pretty Zayas MD IMG BI PROCEDURES Fin al Result * US Pelvis Transvaginal (07/21/2024 9:20 AM EST) Anatomical Region Laterality Modality Pelvis Ultrasound 07/21/2024 9:20 AM EST Narrative 07/21/2024 9:21 AM EST ? [facility] ?[address] ?[place] [address] ? Ultrasound Report ? Signed ? Patient: Violet Pascal ?MR#: [id number] ?? [id number] ? : 1960 ?Acct:[id number] ? Age/Sex: 64 / F ?ADM Date: 07/20/24 ? Loc: HO.US ? Attending Dr: Ramesh Gurrola MD ? Ordering Physician: Ramesh Gurrola MD ?? Date of Service: 07/20/24 ?? Procedure(s): US pelvic and transvaginal ?? Accession Number(s): [id number] ? cc: Pretty Molina MD; Ramesh Gurrola [...] ? DD/ 9 ? TD/TT: 07/21/24919 ? Manager [employer]: ? Procedure Note Karolyn, Image - 07/21/2024 [place] [address] Ultrasound Report Signed Patient: Abraham Pascal#: [id number] : 1960cct:[id number] Age/Sex: 64 / FADM Date: 07/20/24 Loc: HO.US Attending Dr: Ramesh Gurrola MD Ordering Physician: Ramesh Gurrola MD Date of Service: 07/20/24 Procedure(s): US pelvic and transvaginal Accession Number(s): [id number] cc: Pretty Molina MD; Ramesh Gurrola MD [...] in OV> 07/21/24919 DD/ 9 TD/TT: 07/21/24919 Manager [employer] Sourcing: [facility] External Provider IMG US PROCEDURES Edited Result - Final * (ABNORMAL) Basic Metabolic Panel (07/20/2024 12:01 PM EST) Sodium 137 135 - 145 mmol/L [facility] Potassium 4.2 3.3 - 5.1 mmol/L [facility] Chloride 103 96 - 108 mmol/L [facility] Carbon Dioxide 24 22 - 29 mmol/L [facility] Anion Gap 14 12 - [address] [facility] Urea Nitrogen (BUN) 18(H) 9 - 16 mg/dL [facility] Creatinine, Serum 0.75 0.5 - 1.4 mg/dL [facility] Estimated Glomerular Filt Rate >[address] [facility] Comment:Chronic Kidney Disea se: Estimated GFR < 60 mL/min/1.21y0Lgzycm Kidney Disease: Estimated GFR < 15 mL/min/1.73m2 Glucose 156(H) 60 - 115 mg/dL [facility] Calcium 9.4 8.4 - 10.2 mg/dL [facility] 07/20/2024 12:0 1 PM EST 07/20/2024 12:01 PM EST Generic External Data Provider LAB BLOOD ORDERAB LES Final Result [facility] [address] [place] [phone] * HPV mRNA E6/E7 w/Reflex to HPV Genotypes 16, 18/45 (04/18/2023 2:08 PM EST) HPV nRNA E6/E7 Not Detected Not Detected [facility] Comment:Methodology: Transcr iption-Mediated AmplificationThis assay detects E6/E7 viral messenger RNA (mRNA) from 14high-risk HPV types (16,18,31,33,35,39,45,51,52,56,58,59,66,68).Cervical sources are required for HPV testing.If a vaginal source from a patient who has had atotal hysterectomy with removal of cervix wassubmitted, please contact the testing laboratoryfor alternative testing options.For additional information, please refer [email or web address]/OYN842u3(This link if provided for information/educational purposes only.)THIS TEST WAS PERFORMED AT:[employer] [address] [id number] ANNE MD HPV mRNA E6/E7 TNP [facility] HPV 16 RNA TNP [facility] HPV 18/45 RNA [facility] 04/18/2023 2:08 PM EST 04/19/2023 8:20 AM EST Cristian Briones [facility] CYTOLOGY ORDERABLES F inal Result Performing Organization Address City/State/[facility] Co de Phone Number [facility] [address] [place] [address] [phone] * Pap Smear (04/18/2023 2:08 PM EST) 04/18/2023 2:08 PM EST 04/19/2023 8:20 AM EST Narrative [facility] - 04/26/2023 1:40 PM EST ----- ------- Name: Violet Pascal ? Age/Sex: 63/F ? : 1960 Unit#: [id number] ?? Attend Dr: CRISTIAN BRIONES CNM ?Re04/18/23 ?Status: DEP REF ? Location: [facility] [address] ? Disch: ? ----- ------- SPEC : [id number] ?RECD: 04/19/23 ? STATUS: ??SOUT ? REQ NUM: [id number] ? YASMINE: 04/18/23 ? SUBM DR: CRISTIAN [...] 66, 68) ?? HPV testing performed by [employer], [place], [place]. ??See reference laboratory ?? pion of the EMR for entire report. ?Clinical Information LMP: Postmenopausal Previous PAP test: Unknown date/findings ? Material Received ?? ThinPrep-Cervical ----- ------- Signed (signature on file) MARIOLA Walker (ASCP) 04/26/23 1340 ? ----- ------- ? END OF REPORT ? us Cristian Briones [facility] CYTOLOGY ORDERABLES F inal Result [facility] [address] [place] [phone] * Hepatitis C Antibody (02/03/2021 12:01 PM EDT) Hepatitis C Antibody Nonreactive Nonreactive [facility] Comment: Antibodies to HCV not detected; does not exclude early acute HCV infection. HIV AB/AG Nonreactive Nonreactive [facility] Comment: HIV-1 p24 Ag [...] detection of this assay. ?? [employer] HIV Ag/Ab Combo assay result and supplemental assay results should be interpreted in conjunction with the patient's clinical presentation, history and other laboratory results. ??If the results are inconsistent with clinical evidence, additional testing is suggested to confirm the result. 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
--- OUTSIDE RECORDS SUMMARY | 2024-10-15 09:51 | XMS_ITS | Encounter Summary ---
Author Organization [employer] Address [address] [place] [address] 7t [place] [address] Care Team Providers Care Branch Lending Officer Name Role Phone Pretty Molina MD Primary Care Provide r Guero Burns PharmD Unavailable [phone] Encounter Details Date Type Department Care Team (Late st Contact Info) Description 07/01/2022 Orders Only [address] [address] Marti Cedillo RN Chronically on opiate therapy [...] Info) Description 10/23/2024 1:30 PM EDT Telemedicine [address] [address] Guero Burns, PharmD 230 [place] [address] 12/05/2024 2:00 PM EDT Clinical Support [address] [address] Sandra Boyd RN documented as of this encounter Visit Diagnoses Diagnosis Chronically on opiate therapy- Primary documented in this encounter Care Teams Branch Lending Officer Relationship Specialty Start Date End Date Pertty Molina MD [address] [place], [place] [phone] PCP - General Family Medicine 12/24/20 Guero Burns, PharmD [address] [place] [address] Pharmacist Internal Medicine 09/20/24 documented as of this encounter
--- OUTSIDE RECORDS SUMMARY | 2024-10-15 09:51 | XMS_ITS | Encounter Summary ---
Author Organization [employer] Address 75 [facility] 7t [place] [address] Care Team Providers Care Rehabilitation Construction Specialist Name Role Phone Pretty Molina MD Primary Care Provide r Guero Burns PharmD Unavailable [phone] Reason for Visit * Reason Comments Med Refill Encounter Details Date Type Department Care Team (Late st Contact Info) Description 12/27/2022 Refill [facility] MEDICINE 230 [place] [address] Jocelyn Bender DO 230 [place] [address] Seasonal allergic rhinitis, unspecified trigger Social History [...] Info) Description 10/23/2024 1:30 PM EDT Telemedicine [address] [address] Guero Burns, Mario [address] [place] [address] 12/05/2024 2:00 PM EDT Clinical Support [facility] MEDICINE [address] [place] [phone] Sandra Boyd, TONY documented as of this encounter Visit Diagnoses Diagnosis Seasonal allergic rhinitis, unspecified trigger documented in this encounter Additional Health Concerns Assessment Noted Time PHQ-9 Depression Total Score: 12 023 3:08 PM EDT documented as of this encounter Care Teams Rehabilitation Construction Specialist Relationship Specialty Start Date End Date Pretty Molina MD [address] [place] [phone] PCP - General Family Medicine 12/24/20 Guero Burns, PharmD [address] [place] [phone] Pharmacist Internal Medicine 09/20/24 documented as of this encounter
--- OUTSIDE RECORDS SUMMARY | 2024-10-15 09:51 | XMS_ITS | Encounter Summary ---
Author Organization [employer] Address 75 [facility] 7t [place] [address] Care Team Providers Care Director Power Name Role Phone Pretty Molina MD Primary Care Provide r Guero Burns PharmD Unavailable [phone] Reason for Visit * Reason Comments Med Refill Encounter Details Date Type Department Care Team (Late st Contact Info) Description 04/05/2024 Refill [facility] MEDICINE 230 [place] [address] Pretty Molina MD 230 [place] [address] Other chronic pain Social History Tobacco Use [...] Info) Description 10/23/2024 1:30 PM EDT Telemedicine [address] [address] Guero Burns, PharmD [address] [place] [address] 12/05/2024 2:00 PM EDT Clinical Support [address] [address] Sandra Boyd, TONY documented as of this encounter Visit Diagnoses Diagnosis Other chronic pain documented in this encounter Additional Health Concerns Assessment Noted Time PHQ-9 Depression Total Score: 4 01/06/20 24 2:22 PM EDT documented as of this encounter Care Teams Director Power Relationship Specialty Start Date End Date Pretty Molina MD [address] [place] [address] PCP - General Family Medicine 12/24/20 Guero Burns, PharmD [address] [place] [address] Pharmacist Internal Medicine 09/20/24 documented as of this encounter
--- OUTSIDE RECORDS SUMMARY | 2024-10-15 09:51 | XMS_ITS | Encounter Summary ---
Author Organization [employer] Address 75 [facility] [place] 7t [place] [address] Care Team Providers Care Trapeze Artist Name Role Phone Pretty Molina MD Primary Care Provide r Guero Burns PharmD Unavailable [phone] Reason for Visit * Reason Comments Med Refill Encounter Details Date Type Department Care Team (Late st Contact Info) Description 03/30/2023 Refill [facility] MEDICINE 230 [place] [address] Pretty Molina MD 230 [place] [address] Other chronic pain Social History Tobacco Use [...] Description 10/23/2024 1:30 PM EDT Telemedicine [address] [address] Guero Burns, Mario [address] [place] [address] 12/05/2024 2:00 PM EDT Clinical Support [facility] MEDICINE [address] [place] [address] Sandra Boyd, TONY documented as of this encounter Visit Diagnoses Diagnosis Other chronic pain documented in this encounter Additional Health Concerns Assessment Noted Time PHQ-9 Depression Total Score: 12 023 3:08 PM EDT documented as of this encounter Care Teams Trapeze Artist Relationship Specialty Start Date End Date Pretty Molina MD [address] [place] [address] PCP - General Family Medicine 12/24/20 Guero Burns, PharmD [address] [place] [address] [phone] Pharmacist Internal Medicine 09/20/24 documented as of this encounter
--- OUTSIDE RECORDS SUMMARY | 2024-10-15 09:51 | XMS_ITS | Encounter Summary ---
Author Organization [employer] Address 75 [facility] 7t [place] [address] Care Team Providers Care Staking Press Operator Name Role Phone Pretty Molina MD Primary Care Provide r Guero Burns PharmD Unavailable [phone] Reason for Visit * Reason Onset Date Comments Med Refill 01/05/2023 Encounter Details Date Type Department Care Team (Late st Contact Info) Description 01/05/2023 Telephone [facility] MEDICINE 230 [place] [address] Pretty Molina MD 230 [place] [address] Med Refill Social History Tobacco Use Types [...] Info) Description 10/23/2024 1:30 PM EDT Telemedicine [address] [address] Guero Burns, Mario [address] [place] [address] 12/05/2024 2:00 PM EDT Clinical Support [facility] MEDICINE [address] [place] [address] Sandra Boyd, TONY documented as of this encounter Visit Diagnoses Not on filedocumented in this encounter Additional Health Concerns Assessment Noted Time PHQ-9 Depression Total Score: 12 023 3:08 PM EDT documented as of this encounter Care Teams Staking Press Operator Relationship Specialty Start Date End Date Pretty Molina MD [address] [place] [phone] PCP - General Family Medicine 12/24/20 Guero Burns, Mario [address] [place] [address] [phone] Pharmacist Internal Medicine 09/20/24 documented as of this encounter
--- OUTSIDE RECORDS SUMMARY | 2024-10-15 09:51 | XMS_ITS | Encounter Summary ---
Author Organization [employer] Address 75 [facility] 7t [place] [address] Care Team Providers Care Monogram Machine Operator Name Role Phone Pretty Molina MD Primary Care Provide r Guero Burns PharmD Unavailable [phone] Reason for Visit * Reason Comments Med Refill Encounter Details Date Type Department Care Team (Late st Contact Info) Description 05/09/2023 Refill [facility] MEDICINE 230 [place] [address] rPetty Molina MD 230 [place], [place] [phone] Other chronic pain Social History Tobacco Use [...] Info) Description 10/23/2024 1:30 PM EDT Telemedicine [address] [address] Guero Burns, Mario [address] [place] [address] 12/05/2024 2:00 PM EDT Clinical Support [facility] MEDICINE [address] [place] [address] Sandra Boyd, TONY documented as of this encounter Visit Diagnoses Diagnosis Other chronic pain documented in this encounter Additional Health Concerns Assessment Noted Time PHQ-9 Depression Total Score: 12 023 3:08 PM EDT documented as of this encounter Care Teams Monogram Machine Operator Relationship Specialty Start Date End Date Pretty Molina MD [address] [place] [phone] PCP - General Family Medicine 12/24/20 Guero Burns, PharmD [address] [place] [address] [phone] Pharmacist Internal Medicine 09/20/24 documented as of this encounter
--- OUTSIDE RECORDS SUMMARY | 2024-10-15 09:51 | XMS_ITS | Encounter Summary ---
Author Organization [employer] Address 75 [facility] 7t [place] [address] Care Team Providers Care Application Support Consultant Name Role Phone Pretty Molina MD Primary Care Provide r Guero Burns PharmD Unavailable [phone] Reason for Visit * Reason Comments Med Refill Encounter Details Date Type Department Care Team ([facility] st Contact Info) Description 04/15/2024 Refill [facility] CHC MED & PEDS [address] [place] [address] Pretty Molina MD 230 [place] [address] Social History Tobacco Use Types Packs/Day Years [...] Info) Description 10/23/2024 1:30 PM EDT Telemedicine [facility] MEDICINE [address] [place] [address] Guero Burns, PharmD [address] [place] [address] 12/05/2024 2:00 PM EDT Clinical Support [facility] MEDICINE [address] [place] [address] Sandra Boyd RN documented as of this encounter Visit Diagnoses Not on filedocumented in this encounter Additional Health Concerns Assessment Noted Time PHQ-9 Depression Total Score: 4 01/06/20 24 2:22 PM EDT documented as of this encounter Care Teams Application Support Consultant Relationship Specialty Start Date End Date Pretty Molina MD [address] [place] [address] [phone] PCP - General Family Medicine 12/24/20 Guero Burns, PharmD [address] [place] [address] Pharmacist Internal Medicine 09/20/24 documented as of this encounter
--- OUTSIDE RECORDS SUMMARY | 2024-10-15 09:51 | XMS_ITS | Encounter Summary ---
Author Organization [employer] Address 75 [facility] 7t [place] [address] Care Team Providers Care Appeals Manager Name Role Phone Pretty Molina MD Primary Care Provide r Guero Burns PharmD Unavailable [phone] Reason for Visit * Reason Comments Med Refill Encounter Details Date Type Department Care Team (Late st Contact Info) Description 12/06/2023 Refill [facility] MEDICINE 230 [place] [address] Pretty Molina MD 230 [place], [place] [phone] Other chronic pain Social History Tobacco Use [...] Info) Description 10/23/2024 1:30 PM EDT Telemedicine [address] [address] Guero Burns, PoloD [address] [place] [address] 12/05/2024 2:00 PM EDT Clinical Support [facility] MEDICINE [address] [place] [address] Sandra Boyd, TONY documented as of this encounter Visit Diagnoses Diagnosis Other chronic pain documented in this encounter Additional Health Concerns Assessment Noted Time PHQ-9 Depression Total Score: 12 023 3:08 PM EDT documented as of this encounter Care Teams Appeals Manager Relationship Specialty Start Date End Date Pretty Molina MD [address] [place] [phone] PCP - General Family Medicine 12/24/20 Guero Burns, PharmD [address] [place] [phone] Pharmacist Internal Medicine 09/20/24 documented as of this encounter
--- OUTSIDE RECORDS SUMMARY | 2024-10-15 09:51 | XMS_ITS | Encounter Summary ---
Author Organization [employer] Address 75 [facility] 7t [place] [address] Care Team Providers Care Marketing Programs Specialist Name Role Phone Pretty Molina MD Primary Care Provide r Guero Burns PharmD Unavailable [phone] Reason for Visit * Reason Comments Med Refill Encounter Details Date Type Department Care Team (Late st Contact Info) Description 05/02/2023 Refill [facility] MEDICINE 230 [place] [address] Jocelyn Bender DO 230 [place] [address] Seasonal allergic rhinitis, unspecified trigger Social History [...] Info) Description 10/23/2024 1:30 PM EDT Telemedicine [address] [address] Guero Burns, Mario [address] [place] [address] 12/05/2024 2:00 PM EDT Clinical Support [address] [address] Sandra Boyd, TONY documented as of this encounter Visit Diagnoses Diagnosis Seasonal allergic rhinitis, unspecified trigger documented in this encounter Additional Health Concerns Assessment Noted Time PHQ-9 Depression Total Score: 12 023 3:08 PM EDT documented as of this encounter Care Teams Marketing Programs Specialist Relationship Specialty Start Date End Date Pretty Molina MD [address] [place] [address] PCP - General Family Medicine 12/24/20 Guero Burns, PharmD [address] [place] [address] [phone] Pharmacist Internal Medicine 09/20/24 documented as of this encounter
--- OUTSIDE RECORDS SUMMARY | 2024-10-15 09:51 | XMS_ITS | Encounter Summary ---
Author Organization [employer] Address [address] [place] [address] 7t [place] [address] Care Team Providers Care Reading Assistant Name Role Phone Pretty Molina MD Primary Care Provide r Guero Burns PharmD Unavailable [phone] Encounter Details Date Type Department Care Team (Latest Contact Info) Description 04/21/2020 Abstract [facility] CONVERSIONS Dental, Provider, DDS Social History Tobacco [...] Info) Description 10/23/2024 1:30 PM EDT Telemedicine [facility] MEDICINE 230 [place] [address] Guero Burns, PharmD 230 [place] [address] 12/05/2024 2:00 PM EDT Clinical Support [facility] MEDICINE [address] [place] [address] Sandra Boyd, RN documented as of this encounter Visit Diagnoses Not on filedocumented in this encounter Care Teams Reading Assistant Relationship Specialty Start Date End Date Pretty Molina MD [address] [place] [address] PCP - General Family Medicine 12/24/20 Guero Burns, PharmD [address] [place] [phone] Pharmacist Internal Medicine 09/20/24 documented as of this encounter
--- OUTSIDE RECORDS SUMMARY | 2024-10-15 09:51 | XMS_ITS | Encounter Summary ---
Author Organization [employer] Address 75 [facility] 7t [place] [address] Care Team Providers Care Cook Pressure Name Role Phone Pretty Molina MD Primary Care Provide r Guero Burns PharmD Unavailable [phone] Encounter Details Date Type Department Care Team (Latest Contact Info) Description 05/31/2019 Abstract [facility] CONVERSIONS Dental, Provider, DDS Social [...] 10/23/2024 1:30 PM EDT Telemedicine [facility] MEDICINE 230 [place] [address] Guero Burns, PharmD 230 [place] [address] 12/05/2024 2:00 PM EDT Clinical Support [facility] MEDICINE [address] [place] [address] Sandra Boyd, RN documented as of this encounter Visit Diagnoses Not on filedocumented in this encounter Care Teams Cook Pressure Relationship Specialty Start Date End Date Pretty Molina MD 230 [place] [address] PCP - General Family Medicine 12/24/20 Guero Burns, PharmD [address] [place] [address] Pharmacist Internal Medicine 09/20/24 documented as of this encounter
--- OUTSIDE RECORDS SUMMARY | 2024-10-15 09:51 | XMS_ITS | Encounter Summary ---
Author Organization [employer] Address 75 [facility] 7t [place] [address] Care Team Providers Care Equipment Tester Name Role Phone Pretty Molina MD Primary Care Provide r Guero Burns PharmD Unavailable [phone] Reason for Visit * Reason Comments Med Refill Encounter Details Date Type Department Care Team (Late st Contact Info) Description 05/10/2023 Refill [facility] MEDICINE 230 [place] [address] Pretty Molina MD 230 [place], [place] [phone] Other chronic pain Social History Tobacco Use [...] Info) Description 10/23/2024 1:30 PM EDT Telemedicine [address] [address] Guero Burns, Mario [address] [place] [address] 12/05/2024 2:00 PM EDT Clinical Support [facility] MEDICINE [address] [place] [address] Sandra Boyd, TONY documented as of this encounter Visit Diagnoses Diagnosis Other chronic pain documented in this encounter Additional Health Concerns Assessment Noted Time PHQ-9 Depression Total Score: 12 023 3:08 PM EDT documented as of this encounter Care Teams Equipment Tester Relationship Specialty Start Date End Date Pretty Molina MD [address] [place] [address] PCP - General Family Medicine 12/24/20 Guero Burns, PharmD [address] [place] [address] [phone] Pharmacist Internal Medicine 09/20/24 documented as of this encounter
--- OUTSIDE RECORDS SUMMARY | 2024-10-15 09:51 | XMS_ITS | Encounter Summary ---
Author Organization [employer] Address 75 [facility] 7t [place] [address] Care Team Providers Care Advice Clerk Name Role Phone Pretty Molina MD Primary Care Provide r Gureo Burns PharmD Unavailable [phone] Encounter Details Date Type Department Care Team (Late st Contact Info) Description 11/12/2022 Orders Only [facility] CHC MED & PEDS [address] [place], [place] [phone] Jocelyn Fleming LPN Social History Tobacco Use [...] 10/23/2024 1:30 PM EDT Telemedicine [facility] MEDICINE 230 [place], [place] [phone] Guero Burns, PharmD [address] [place], [place] [phone] 12/05/2024 2:00 PM EDT Clinical Support [facility] 230 [place], [place] [phone] Sandra Boyd RN documented as of this encounter Visit Diagnoses Not on filedocumented in this encounter Care Teams Advice Clerk Relationship Specialty Start Date End Date Pretty Molina MD [address] [place], [place] [phone] PCP - General Family Medicine 12/24/20 Guero Burns, Mario [address] [place], [place] [phone] Pharmacist Internal Medicine 09/20/24 documented as of this encounter
--- OUTSIDE RECORDS SUMMARY | 2024-10-15 09:51 | XMS_ITS | Encounter Summary ---
Author Organization [employer] Address 75 [facility] 7t [place] [address] Care Team Providers Care Sulfur Burner Name Role Phone Pretty Molina MD Primary Care Provide r Guero Burns PharmD Unavailable [phone] Reason for Visit * Reason Comments Med Refill Encounter Details Date Type Department Care Team ([facility] st Contact Info) Description 03/23/2023 Refill [facility] CHC MED & PEDS [address] [place] [address] Pretty Molina MD 230 [place] [address] Neuropathy Social History Tobacco Use Types Packs/Day [...] Info) Description 10/23/2024 1:30 PM EDT Telemedicine [address] [address] Guero Burns, Mario [address] [place] [address] 12/05/2024 2:00 PM EDT Clinical Support [facility] MEDICINE [address] [place] [address] Sandra Boyd, TONY documented as of this encounter Visit Diagnoses Diagnosis Neuropathy Mononeuritis of unspecified site documented in this encounter Additional Health Concerns Assessment Noted Time PHQ-9 Depression Total Score: 12 023 3:08 PM EDT documented as of this encounter Care Teams Sulfur Burner Relationship Specialty Start Date End Date Pretty Molina MD [address] [place] [phone] PCP - General Family Medicine 12/24/20 Guero Burns, PharmD [address] [place] [address] [phone] Pharmacist Internal Medicine 09/20/24 documented as of this encounter
[2024-10-15 11:58] LABS: Alanine Aminotransferase 23 U/L (0-31); Albumin Level 3.8 g/dL (3.5-5.0); Alkaline Phosphatase 96 U/L (39-117); Anion Gap 11 (12-20); Aspartate Amino Transferase 30 U/L (5-31); Bilirubin Total 0.4 mg/dL (0.0-1.0); Blood Urea Nitrogen 21 mg/dL (9-16); Carbon Dioxide 26 mmol/L (22-29); Chloride 107 mmol/L (96-108); Estimated Glomerular Filt Rate > 60; Glucose Random 124 mg/dL (60-115); Potassium 4.2 mmol/L (3.3-5.1); Sodium 140 mmol/L (135-145); Total Protein 6.2 g/dL (6.5-8.0)
[2024-10-15 12:24] LABS: Vitamin D 25-OH Total 43.9 ng/mL (>30)
[2024-10-15 12:38] LABS: Folate 7.5 ng/mL (> or = 4.0); Vitamin B12 469 pg/mL (200-900)
== END 2024-10-15 09:11 | disposition home or self-care (01) ==
LOC: HO.HHCL 09:10
PROVIDERS: Visit Provider Internal Medicine
DX: R20.0 Anesthesia of skin (principal); R20.2 Paresthesia of skin; E11.65 Type 2 diabetes mellitus with hyperglycemia
CPT/HCPCS: 36415; 80053; 82306; 82607; 82746

== ENCOUNTER 2024-10-25 13:19 | Outpatient (AMB) | payer MEDICAID, SELFPAY ==
--- NOTE | 2024-10-25 13:38 | MHC.OFFVIS ---
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 Patient states she has painful veins on both legs. Has been going on for about 8 months. Both legs cramp as well. Accompanied by: Self / Same As Patient Allergies morphine [MORPHINE] Allergy (Unknown, Verified 10/25/24 13:45) UNKNOWN HPI HPI SIGNAL WIRER/HHC referral for VV: Details: Violet, a pleasant 64yo Nepalese speaking only female, is presenting today on referral from her PCP for concerns of painful VV. 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 Complaints include pain, swelling of lower extremities, cramping, fatigue, and heaviness of the lower extremities. It has been affecting their daily activities including walking, standing, and physical activity. It is noted in bilateral legs. She is a current everyday smoker, appx 4-5 cigs/day for the last 25-30y. She is also a diabetic, taking oral medications and a weekly injection. She states the pain is located inside her legs all of the time. Patient denies any previous venous surgery or injections. Patient denies any history of DVT/ PE. Patient denies any history of phlebitis. Trial of compression includes - elevation with little relief They now present for vascular evaluation regarding their varicose veins. [facility] Medical History Asymmetric septal hypertrophy Heart block atrioventricular Chronic pain Depression Vascular insufficiency Lichen Hip pain Foot pain Foot callus Cubital tunnel syndrome Chronic vulvovaginitis Carpal tunnel syndrome Burn scar contracture of upper arm Blurring of visual image Mood disorder Hyperlipidemia Renal cyst Hematuria of unknown cause Smoker Arthritis Back pain Diabetes GERD (gastroesophageal reflux disease) Fibromyalgia Anxiety and depression MARK on CPAP Chronic sinusitis Asthma Elevated cholesterol HTN (hypertension) Surgical History Hx of cystoscopy S/P lumpectomy of breast (04/20/21) Hx of colonoscopy Hx of dilation and curettage H/O tubal ligation History of skin graft Family History Father No problems noted. Mother No problems noted. 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 Female Reproductive History Menstrual Age of Menarche: 14 Review of Systems Const Reports as per HPI and Denies weakness ENT Reports Normal hearing present and Denies dizziness Card Reports as per HPI, Denies chest pain, Denies chest pain at rest, Denies chest pain with activity, Denies dyspnea and Denies dyspnea on exertion Resp Reports as per HPI, Denies cough, Denies dyspnea and Denies dyspnea on exertion GI Reports as per HPI, Denies abdominal pain, Denies nausea and Denies vomiting Musc Denies numbness Skin/Breast Reports as per HPI, Denies erythema and Denies wounds Neuro Reports Normal hearing present, Denies dizziness, Denies numbness, Denies Sensory deficit (Neuro) and Denies weakness Psych Reports no additional complaints Endo Reports no additional complaints Physical Exam Const General: healthy appearing and no acute distress Orientation/consciousness: patient oriented x3 HEENT Head: Yes normal to inspection Ears: hearing grossly normal bilaterally Mouth: Normal oral and palatal mucosa present Resp Effort & Inspection: normal respiratory effort and able to speak in complete sentences Auscultation: clear to auscultation bilaterally Cardio Jugular venous distension: no JVD Rate: regular rate Rhythm: regular rhythm Heart sounds: S1 normal heart sound present and S2 normal heart sound present Bruits: no abdominal aortic bruits, no carotid bruits, no femoral bruits and no renal bruits Peripheral pulses: Peripheral pulses 2+ throughout GI Inspection: Yes normal to inspection Palpation (GI): No Abdominal aortic bruit present Skin General skin exam: no rashes or lesions noted Wounds: no wounds Hair: normal Neuro General: patient oriented x3 Cranial nerves: Yes Normal hearing present Cognition (Neuro): normal cognition Gait exam (Neuro): Normal gait present Motor exam (neuro): 5/5 motor strength present throughout Sensory Exam: No Sensory deficit (Neuro) Extrem Other: Bilateral lower extremities: no varicosities or tortuosities noted. 1+ peripheral edema noted. No discoloration noted. CEAP: C - 3 E - primary A - superficial P - reflux General: Yes normal to inspection, Yes full ROM, Yes capillary refill normal and Yes normal gait Assessment & Plan Assessment & Plan (1) Varicose veins of both lower extremities with inflammation: Code(s): I83.11 - Varicose veins of right lower extremity with inflammation; I83.12 - Varicose veins of left lower extremity with inflammation Category: Medical Plan: Violet is presenting today on a referral from her PCP for concerns of painful VV. She states she has been having pain on the inside of bilateral lower extremities for appx 8m; she states she feels like it is her veins causing the pain. The pain occurs all day, not worse at any point. In short, the patient has evidence of venous insufficiency. I have discussed the pathophysiology with the patient. In addition I have provided informational material regarding venous disease to the patient. We have discussed conservative measures including compression, elevation, and exercise. We were unable to provide her with a handout about compression socks; we do not have it in Nepalese at this point. We did discuss getting them and using them daily. I have taken the liberty of ordering venous insufficiency testing with the patient. They will follow up with me after testing. The patient had an opportunity to ask questions regarding the treatment plan. All questions were answered. Imaging studies, laboratory studies and physical exam results were discussed and reviewed in detail. No major barriers to understanding were identified. The patient expressed understanding and agreement with the above treatment plan. The patient is aware they should contact our office by phone for worsening of the current condition or the appearance of new symptoms. Thank you for allowing me to participate in the vascular care of this patient. If you have any questions or concerns regarding the treatment for the above condition please do not hesitate to contact me. The office telephone contact is [phone]. This note is constructed using voice recognition software. While every effort has been made to ensure accuracy, melting supervisor errors may have been included. Thank you for allowing me to participate in the care of your patient. Yours sincerely, SERGIO Gonzales Orders: Orders US venous duplex LE BI 1 Week I83.11 - Varicose veins of right lower extremity with inflammation, I83.12 - Varicose veins of left lower extremity with inflammation Coding Level of Care Code New Pt Level 4 (57956) Diagnoses Varicose veins of both lower extremities with inflammation I83.11; I83.12
--- OUTSIDE RECORDS SUMMARY | 2024-10-25 13:54 | XMS_ITS | Encounter Summary ---
Author Organization [employer] Address [address] [facility] [address] [place] [address] Care Team Providers Care Entry Level Marketing Assistant Name Role Phone Pretty Molina MD Primary Care Provide r Guero Burns PharmD Unavailable [phone] Encounter Details Date Type Department Care Team (Latest Contact Info) Description 05/31/2019 Abstract [facility] CONVERSIONS Dental, Provider, DDS Social History Tobacco [...] Upcoming Encounters Date Type Department Care Team ( st Contact Info) Description 12/05/2024 2:00 PM EDT Clinical Support [facility] MEDICINE [address] [place] [address] Sandra Boyd RN documented as of this encounter Visit Diagnoses Not on filedocumented in this encounter Care Teams Entry Level Marketing Assistant Relationship Specialty Start Date End Date Pretty Molina MD [address] [place] [address] PCP - General Family Medicine 12/24/20 Guero Burns, PharmD [address] [place] [address] Pharmacist Internal Medicine 09/20/24 documented as of this encounter
--- OUTSIDE RECORDS SUMMARY | 2024-10-25 13:54 | XMS_ITS | Encounter Summary ---
Author Organization [employer] Address [address] [facility] [address] [place] [address] Care Team Providers Care Sand Filler Name Role Phone Pretty Molina MD Primary Care Provide r Guero Burns PharmD Unavailable [phone] Reason for Visit * Reason Comments Med Refill Encounter Details Date Type Department Care Team (Late st Contact Info) Description 06/11/2022 Refill [facility] MEDICINE [address] [place] [address] Yasmine Hernandez MD [address] [place], [place] [phone] Chronic pain syndrome Social History Tobacco Use [...] Cedillo RN - 06/15/2022 10:45 AM EST Provider Service Representative ck 06/15/22. documented in this encounter Plan of Treatment Upcoming Encounters Date Type Department Care Team (Late st Contact Info) Description 12/05/2024 2:00 PM EDT Clinical Support [facility] MEDICINE [address] [place], [place] [phone] Deb, Sandra, RN documented as of this encounter Visit Diagnoses Diagnosis Chronic pain syndrome documented in this encounter Care Teams Sand Filler Relationship Specialty Start Date End Date Pretty Molina MD [address] [place], [place] [phone] PCP - General Family Medicine 12/24/20 Guero Burns PharmD [address] [place] [address] Pharmacist Internal Medicine 09/20/24 documented as of this encounter
--- OUTSIDE RECORDS SUMMARY | 2024-10-25 13:54 | XMS_ITS | Encounter Summary ---
Author Organization [employer] Address [address] [facility] [address] [place] [address] Care Team Providers Care New Patient Escort Name Role Phone Pretty Molina MD Primary Care Provide r Guero Burns PharmD Unavailable [phone] Reason for Visit * Reason Comments Med Refill Encounter Details Date Type Department Care Team ([facility] st Contact Info) Description 06/06/2024 Refill [facility] MED & PEDS [address] [place] [address] Pretty Molina MD [address] [place] [address] Type 2 diabetes mellitus with hyperglycemia, without long-term current use of insulin ([facility]) Social History Tobacco Use Types [...] Description 12/05/2024 2:00 PM EDT Clinical Support [facility] MEDICINE [address] [place] [address] Sandra Boyd, TNOY documented as of this encounter Visit Diagnoses Diagnosis Type 2 diabetes mellitus with hyperglycemia, without long-term current use of insulin ([facility]) documented in this encounter Additional Health Concerns Assessment Noted Time PHQ-9 Depression Total Score: 4 01/06/20 24 2:22 PM EDT documented as of this encounter Care Teams New Patient Escort Relationship Specialty Start Date End Date Pretty Molina MD [address] [place] [address] PCP - General Family Medicine 12/24/20 Guero Burns, Mario [address] [place] [address] Pharmacist Internal Medicine 09/20/24 documented as of this encounter
--- OUTSIDE RECORDS SUMMARY | 2024-10-25 13:54 | XMS_ITS | Encounter Summary ---
Author Organization [employer] Address [address] [facility] [address] [place] [address] Care Team Providers Care Timekeeping Supervisor Name Role Phone Pretty Molina MD Primary Care Provide r Guero Burns PharmD Unavailable [phone] Reason for Visit * Reason Onset Date Comments Med Refill 06/10/2022 Encounter Details Date Type Department Care Team (Late st Contact Info) Description 06/10/2022 Refill [facility] MEDICINE [address] [place] [address] Pretty Molina MD [address] [place] [address] Social History Tobacco Use Types Packs/Day Years [...] Description 12/05/2024 2:00 PM EDT Clinical Support [facility] MEDICINE [address] [place] [address] Sandra Boyd, TONY documented as of this encounter Visit Diagnoses Not on filedocumented in this encounter Care Teams Timekeeping Supervisor Relationship Specialty Start Date End Date Pretty Molina MD [address] [place] [address] PCP - General Family Medicine 12/24/20 Guero Burns, PoloD [address] [place] [address] Pharmacist Internal Medicine 09/20/24 documented as of this encounter
--- OUTSIDE RECORDS SUMMARY | 2024-10-25 13:54 | XMS_ITS | Encounter Summary ---
Author Organization [employer] Address [address] [facility] [address] [place] [address] Care Team Providers Care Cyber Defense Incident Responder Name Role Phone Pretty Molina MD Primary Care Provide r Guero Burns PharmD Unavailable [phone] Encounter Details Date Type Department Care Team (Late st Contact Info) Description 07/12/2022 Orders Only [facility] CHC MED & PEDS [address] [place], [place] [phone] Jocelyn Fleming LPN Social History Tobacco Use [...] Description 12/05/2024 2:00 PM EDT Clinical Support [facility] MEDICINE [address] [place] [address] Sandra Boyd, RN documented as of this encounter Visit Diagnoses Not on filedocumented in this encounter Care Teams Cyber Defense Incident Responder Relationship Specialty Start Date End Date Pretty Molina MD [address] [place] [address] PCP - General Family Medicine 12/24/20 Guero Burns, PharmD [address] [place] [address] Pharmacist Internal Medicine 09/20/24 documented as of this encounter
--- OUTSIDE RECORDS SUMMARY | 2024-10-25 13:54 | XMS_ITS | Encounter Summary ---
Author Organization [employer] Address [address] [facility] [address] [place] [address] Care Team Providers Care Professor Of Marketing Name Role Phone Pretty Molina MD Primary Care Provide r Guero Burns PharmD Unavailable [phone] Encounter Details Date Type Department Care Team (Latest Contact Info) Description 04/21/2020 Abstract [facility] CONVERSIONS Dental, Provider, DDS Social History [...] Description 12/05/2024 2:00 PM EDT Clinical Support [facility] MEDICINE [address] [place] [address] Sandra Byod, TONY documented as of this encounter Visit Diagnoses Not on filedocumented in this encounter Care Teams Professor Of Marketing Relationship Specialty Start Date End Date Pretty Molina MD [address] [place] [address] PCP - General Family Medicine 12/24/20 Guero Burns, PharmD [address] [place] [address] Pharmacist Internal Medicine 09/20/24 documented as of this encounter
--- OUTSIDE RECORDS SUMMARY | 2024-10-25 13:54 | XMS_ITS | Encounter Summary ---
Author Organization [employer] Address [address] [facility] [address] [place] [address] Care Team Providers Care Business Systems Architect Name Role Phone Pretty Molina MD Primary Care Provide r Guero Burns PharmD Unavailable [phone] Encounter Details Date Type Department Care Team (Late st Contact Info) Description 07/01/2022 Orders Only [facility] MEDICINE [address] [place] [address] Marti Cedillo RN Chronically on opiate therapy [...] 2:00 PM EDT Clinical Support [facility] [address] [place] [address] Sandra Boyd RN documented as of this encounter Visit Diagnoses Diagnosis Chronically on opiate therapy- Primary documented in this encounter Care Teams Business Systems Architect Relationship Specialty Start Date End Date Pretty Molina MD [address] [place] [address] PCP - General Family Medicine 12/24/20 Guero Burns, PharmD [address] [place] [address] Pharmacist Internal Medicine 09/20/24 documented as of this encounter
--- OUTSIDE RECORDS SUMMARY | 2024-10-25 13:54 | XMS_ITS | Encounter Summary ---
Author Organization [employer] Address [address] [facility] [address] [place] [address] Care Team Providers Care Shortage Worker Name Role Phone Pretty Molina MD Primary Care Provide r Guero Burns PharmD Unavailable [phone] Encounter Details Date Type Department Care Team (Late Contact Info) Description 09/01/2022 Orders Only [facility] CHC MED & PEDS [address] [place], [place] [phone] Jocelyn Fleming LPN Social History Tobacco Use [...] Department Care Team (Late Contact Info) Description 12/05/2024 2:00 PM EDT Clinical Support [facility] MEDICINE [address] [place], [place] [phone] Sandra Boyd RN documented as of this encounter Visit Diagnoses Not on filedocumented in this encounter Care Teams Shortage Worker Relationship Specialty Start Date End Date Pretty Molina MD [address] [place], [place] [phone] PCP - General Family Medicine 12/24/20 Guero Burns, PharmD [address] [place], [place] [address] [address] Pharmacist Internal Medicine 09/20/24 documented as of this encounter
--- OUTSIDE RECORDS SUMMARY | 2024-10-25 13:54 | XMS_ITS | Encounter Summary ---
Author Organization [employer] Address [address] [facility] [address] [place] [address] Care Team Providers Care Superintendent Tests Name Role Phone Pretty Molina MD Primary Care Provide r Guero Burns PharmD Unavailable [phone] Reason for Visit * Reason Comments Med Refill Encounter Details Date Type Department Care Team ([facility] st Contact Info) Description 07/01/2024 Refill [facility] MEDICINE [address] [place] [address] Keysha Nagel, YOLETTE [address] [place] [address] Social History Tobacco Use Types Packs/Day Years [...] Description 12/05/2024 2:00 PM EDT Clinical Support [facility] MEDICINE [address] [place] [address] Sandra Boyd, TONY documented as of this encounter Visit Diagnoses Not on filedocumented in this encounter Additional Health Concerns Assessment Noted Time PHQ-9 Depression Total Score: 4 01/06/20 24 2:22 PM EDT documented as of this encounter Care Teams Superintendent Tests Relationship Specialty Start Date End Date Pretty Molina MD [address] [place] [address] PCP - General Family Medicine 12/24/20 Guero Burns, PoloD [address] [place] [address] Pharmacist Internal Medicine 09/20/24 documented as of this encounter
--- OUTSIDE RECORDS SUMMARY | 2024-10-25 13:54 | XMS_ITS | Encounter Summary ---
Author Organization [employer] Address [address] [facility] [address]t [place] [address] Care Team Providers Care Recruitment Director Name Role Phone Pretty Molina MD Primary Care Provide r Guero Burns PharmD Unavailable [phone] Reason for Visit * Reason Comments Med Refill Encounter Details Date Type Department Care Team (Late st Contact Info) Description 09/21/2024 Refill [facility] MEDICINE [address] [place] [address] Pretty Molina MD [address] [place] [address] Type 2 diabetes mellitus with hyperglycemia, without long-term current use of insulin ([facility]) Social History Tobacco Use Types Packs/Day Years Used Date Smoking Tobacco: Every Day Cigarettes 0.8 35.4 Started: 1989 Passive Smoke Exposure: Current Smokeless [...] Description 12/05/2024 2:00 PM EDT Clinical Support [facility] MEDICINE [address] [place] [address] Sandra Boyd, RN documented as of this encounter Visit Diagnoses Diagnosis Type 2 diabetes mellitus with hyperglycemia, without long-term current use of insulin ([facility]) documented in this encounter Additional Health Concerns Assessment Noted Time PHQ-9 Depression Total Score: 4 01/06/20 24 2:22 PM EDT documented as of this encounter Care Teams Recruitment Director Relationship Specialty Start Date End Date Pretty Molina MD [address] [place] [address] PCP - General Family Medicine 12/24/20 Guero Burns, PoloD [address] [place] [address] Pharmacist Internal Medicine 09/20/24 documented as of this encounter
--- OUTSIDE RECORDS SUMMARY | 2024-10-25 13:55 | XMS_ITS | Encounter Summary ---
Author Organization [employer] Address [address] [facility] [address]t [place] [address] Care Team Providers Care Combat Systems Operator Name Role Phone Pretty Molina MD Primary Care Provide r Guero Burns PharmD Unavailable [phone] Reason for Visit * Reason Comments Med Refill Encounter Details Date Type Department Care Team (Late Contact Info) Description 12/27/2022 Refill [facility] MEDICINE [address] [place] [address] Jocelyn Bender DO [address] [place] [address] Seasonal allergic rhinitis, unspecified trigger Social History [...] Description 12/05/2024 2:00 PM EDT Clinical Support [facility] MEDICINE [address] [place] [address] Sandra Boyd, TONY documented as of this encounter Visit Diagnoses Diagnosis Seasonal allergic rhinitis, unspecified trigger documented in this encounter Additional Health Concerns Assessment Noted Time PHQ-9 Depression Total Score: 12 023 3:08 PM EDT documented as of this encounter Care Teams Combat Systems Operator Relationship Specialty Start Date End Date Pretty Molina MD [address] [place] [address] PCP - General Family Medicine 12/24/20 Guero Burns, PoloD [address] [place] [address] Pharmacist Internal Medicine 09/20/24 documented as of this encounter
--- OUTSIDE RECORDS SUMMARY | 2024-10-25 13:55 | XMS_ITS | Encounter Summary ---
Author Organization [employer] Address [address] [facility] [address] [place] [address] Care Team Providers Care Skip Operator Name Role Phone Pretty Molina MD Primary Care Provide r Guero Burns PharmD Unavailable [phone] Reason for Visit * Reason Comments Med Refill Encounter Details Date Type Department Care Team ([facility] st Contact Info) Description 04/05/2024 Refill [facility] MEDICINE [address] [place] [address] Pretty Molina MD [address] [place] [address] Other chronic pain Social History Tobacco Use [...] Description 12/05/2024 2:00 PM EDT Clinical Support [facility] MEDICINE [address] [place] [address] Sandra Boyd, TONY documented as of this encounter Visit Diagnoses Diagnosis Other chronic pain documented in this encounter Additional Health Concerns Assessment Noted Time PHQ-9 Depression Total Score: 4 01/06/20 24 2:22 PM EDT documented as of this encounter Care Teams Skip Operator Relationship Specialty Start Date End Date Pretty Molina MD [address] [place] [address] PCP - General Family Medicine 12/24/20 Guero Burns, PoloD [address] [place] [address] Pharmacist Internal Medicine 09/20/24 documented as of this encounter
--- OUTSIDE RECORDS SUMMARY | 2024-10-25 13:55 | XMS_ITS | Encounter Summary ---
Author Organization [employer] Address [address] [facility] [address]t [place] [address] Care Team Providers Care Tool Mechanic Name Role Phone Pretty Molina MD Primary Care Provide r Gueor Burns PharmD Unavailable [phone] Reason for Visit * Reason Comments Med Refill Encounter Details Date Type Department Care Team ([facility] st Contact Info) Description 03/23/2023 Refill [facility] CHC MED & PEDS [address] [place] [address] Pretty Molina MD [address] [place] [address] Neuropathy Social History Tobacco Use Types Packs/Day [...] Description 12/05/2024 2:00 PM EDT Clinical Support [facility] MEDICINE [address] [place] [address] Sandra Boyd RN documented as of this encounter Visit Diagnoses Diagnosis Neuropathy Mononeuritis of unspecified site documented in this encounter Additional Health Concerns Assessment Noted Time PHQ-9 Depression Total Score: 12 023 3:08 PM EDT documented as of this encounter Care Teams Tool Mechanic Relationship Specialty Start Date End Date Pretty Molina MD [address] [place] [address] PCP - General Family Medicine 12/24/20 Guero Burns PharmD [address] [place] [address] Pharmacist Internal Medicine 09/20/24 documented as of this encounter
--- OUTSIDE RECORDS SUMMARY | 2024-10-25 13:55 | XMS_ITS | Encounter Summary ---
Author Organization [employer] Address [address] [facility] 7t [place] [address] Care Team Providers Care Hand Buffing Wheel Former Name Role Phone Pretty Molina MD Primary Care Provide r Guero Burns PharmD Unavailable [phone] Reason for Visit * Reason Comments Med Refill Encounter Details Date Type Department Care Team ([facility] st Contact Info) Description 12/06/2023 Refill [facility] MEDICINE [address] [place] [address] Pretty Molina MD [address] [place] [address] Other chronic pain Social History Tobacco Use [...] Description 12/05/2024 2:00 PM EDT Clinical Support [facility] MEDICINE [address] [place] [address] Sandra Boyd RN documented as of this encounter Visit Diagnoses Diagnosis Other chronic pain documented in this encounter Additional Health Concerns Assessment Noted Time PHQ-9 Depression Total Score: 12 023 3:08 PM EDT documented as of this encounter Care Teams Hand Buffing Wheel Former Relationship Specialty Start Date End Date Pretty Molina MD [address] [place] [address] PCP - General Family Medicine 12/24/20 Guero Burns, PoloD [address] [place] [address] Pharmacist Internal Medicine 09/20/24 documented as of this encounter
--- OUTSIDE RECORDS SUMMARY | 2024-10-25 13:55 | XMS_ITS | Encounter Summary ---
Author Organization [employer] Address [address] [facility] 7t [place] [address] Care Team Providers Care Genetics Physician Name Role Phone Pretty Molina MD Primary Care Provide r Guero Burns PharmD Unavailable [phone] Reason for Visit * Reason Comments Med Refill Encounter Details Date Type Department Care Team ([facility] st Contact Info) Description 05/02/2023 Refill [facility] MEDICINE [address] [place] [address] Jocelyn Bender DO [address] [place], [place] [id number] Seasonal allergic rhinitis, unspecified trigger Social History [...] Description 12/05/2024 2:00 PM EDT Clinical Support [facility] MEDICINE [address] [place] [address] Sandra Boyd RN documented as of this encounter Visit Diagnoses Diagnosis Seasonal allergic rhinitis, unspecified trigger documented in this encounter Additional Health Concerns Assessment Noted Time PHQ-9 Depression Total Score: 12 023 3:08 PM EDT documented as of this encounter Care Teams Genetics Physician Relationship Specialty Start Date End Date Pretty Molina MD [address] [place] [address] PCP - General Family Medicine 12/24/20 Guero Burns PharmD [address] [place] [address] Pharmacist Internal Medicine 09/20/24 documented as of this encounter
--- OUTSIDE RECORDS SUMMARY | 2024-10-25 13:55 | XMS_ITS | Encounter Summary ---
Author Organization [employer] Address [address] [facility] 7t [place] [address] Care Team Providers Care Feather Cutting Machine Feeder Name Role Phone Pretty Molina MD Primary Care Provide r Guero Burns PharmD Unavailable [phone] Reason for Visit * Reason Comments Med Refill Encounter Details Date Type Department Care Team ([facility] st Contact Info) Description 05/12/2023 Refill [facility] CHC MED & PEDS [address] [place] [address] Pretty Molina MD [address] [place] [address] Neuropathy Social History Tobacco Use Types Packs/Day [...] Description 12/05/2024 2:00 PM EDT Clinical Support [facility] MEDICINE [address] [place] [address] Sandra Boyd RN documented as of this encounter Visit Diagnoses Diagnosis Neuropathy Mononeuritis of unspecified site documented in this encounter Additional Health Concerns Assessment Noted Time PHQ-9 Depression Total Score: 12 023 3:08 PM EDT documented as of this encounter Care Teams Feather Cutting Machine Feeder Relationship Specialty Start Date End Date Pretty Molina MD [address] [place] [address] PCP - General Family Medicine 12/24/20 Guero Burns PharmD [address] [place] [address] Pharmacist Internal Medicine 09/20/24 documented as of this encounter
--- OUTSIDE RECORDS SUMMARY | 2024-10-25 13:55 | XMS_ITS | Encounter Summary ---
Author Organization [employer] Address [address] [facility] 7t [place] [address] Care Team Providers Care Study Abroad Coordinator Name Role Phone Pretty Molina MD Primary Care Provide r Guero Burns PharmD Unavailable [phone] Reason for Visit * Reason Comments Med Refill Encounter Details Date Type Department Care Team (Late st Contact Info) Description 11/24/2022 Refill [facility] [address] [place] [address] Eliezer Richardson, ROBERT [address] [place] [address] Social History Tobacco Use Types Packs/Day Years [...] PM EDT documented as of this encounter Functional Status * Over the past 2 weeks, how often have you been bothered by any of the following problems? Question Answer Date of Assessment Author Patient Health Questionnaire -2 Score 4 11/24/2022 3:08 PM Vicki Gregory MA * If you checked off any problems on this questionnaire so far, Question Answer Date of Assessment Author How difficult have these problems made it for you to do your work, take care of things at home, or get along with other people? Somewhat difficult 11/24/2022 3:08 PM Vicki Gregory MA * Over the past 2 weeks, how often have you been bothered by any of the following problems? Question Answer Date of Assessment Author Little interest or pleasure in doing things Nearly every day 11/24/2022 3:08 PM Vicki Gregory MA Feeling down, depressed, or hopeless Several days 11/24/2022 3:08 PM Vicki Gregory [place] Trouble falling or staying asleep, or sleeping too much Nearly every day 11/24/2022 3:08 PM Vicki Gregory MA Feeling tired or having little energy More than half the days 11/24/2022 3:08 PM Vicki Gregory [place] Poor appetite or overeating Nearly every day 11/24/2022 3:08 PM Vicki Gregory MA Feeling bad about yourself - or that you are a failure or have let yourself or your family down Not at all 11/24/2022 3:08 PM Vicki Gregory MA Trouble concentrating on things, such as reading the newspaper or watching television Not at all 11/24/2022 3:08 PM Vicki Gregory MA Moving or speaking so slowly that other people could have noticed? Or the opposite - being so fidgety or restless that you have been moving around a lot more than usual. Not at all 11/24/2022 3:08 PM Vicki Gregory MA Thoughts that you would be better off or hurting yourself in some way Not at all 11/24/2022 3:08 PM Vicki Gregory MA Patient Health Questionnaire-9 Score 12 11/24/2022 3:08 PM EDT Vicki Ghosh MA documented as of this encounter Miscellaneous Notes * Telephone Encounter - Eliezer Richardson DDS - 11/24/2022 9:23 AM EDT Approving, but needs appt for additional refills. documented in this encounter Plan of Treatment Upcoming Encounters Date Type Department Care Team (Late st Contact Info) Description 12/05/2024 2:00 PM EDT Clinical Support [facility] MEDICINE [address] [place] [address] Sandra Boyd RN documented as of this encounter Visit Diagnoses Not on filedocumented in this encounter Additional Health Concerns Assessment Noted Time PHQ-9 Depression Total Score: 12 023 3:08 PM EDT documented as of this encounter Care Teams Study Abroad Coordinator Relationship Specialty Start Date End Date Pretty Molina MD [address] [place] [address] PCP - General Family Medicine 12/24/20 Guero Burns, Mario [address] [place] [address] Pharmacist Internal Medicine 09/20/24 documented as of this encounter
--- OUTSIDE RECORDS SUMMARY | 2024-10-25 13:55 | XMS_ITS | Encounter Summary ---
Author Organization [employer] Address [address] [facility] 7t [place] [address] Care Team Providers Care Golf Superintendent Name Role Phone Pretty Molina MD Primary Care Provide r Guero Burns PharmD Unavailable [phone] Reason for Visit * Reason Onset Date Comments Nurse Triage 04/26/2024 Encounter Details Date Type Department Care Team (Late st Contact Info) Description 04/26/2024 Telephone [facility] MEDICINE [address] [place] [address] Pretty Molina MD [address] [place] [address] Nurse Triage Social History Tobacco Use Types [...] PM EST Please obtain note from [facility] ED visit 04/24/24, Upcoming appt with PCP tomorrow at 11am. * Telephone Encounter - Valeria Hooper LPN - 04/26/2024 11:58 AM EST Triage call returned with BLS #[id number] Yonathan. Patient reports that she was seen on 04/19/24. Patient is reporting following her Flu shot she has been feeling delicate . Chart shows Flu given in March. Call dropped. Return call with Draw Frame Operator Neto Rodgers78. Patient reports seen at [facility] and not improved with cough and congestion. Has no reported fever. Patient then reports presented to [facility] ED on 04/24/24 [...] caller accepted this outcome. Contact pt at [phone] documented in this encounter Plan of Treatment Upcoming Encounters Date Type Department Care Team (Late st Contact Info) Description 12/05/2024 2:00 PM EDT Clinical Support [facility] MEDICINE [address] [place] [address] Sandra Boyd RN documented as of this encounter Visit Diagnoses Not on filedocumented in this encounter Additional Health Concerns Assessment Noted Time PHQ-9 Depression Total Score: 4 01/06/20 24 2:22 PM EDT documented as of this encounter Care Teams Golf Superintendent Relationship Specialty Start Date End Date Pretty Molina MD [address] [place] [address] PCP - General Family Medicine 12/24/20 Guero Burns, PoloD [address] [place] [address] Pharmacist Internal Medicine 09/20/24 documented as of this encounter
--- OUTSIDE RECORDS SUMMARY | 2024-10-25 13:55 | XMS_ITS | Encounter Summary ---
Author Organization [employer] Address [address] [facility] 7t [place] [address] Care Team Providers Care Mastic Floor Layer Name Role Phone Pretty Molina MD Primary Care Provide r Guero Burns PharmD Unavailable [phone] Encounter Details Date Type Department Care Team (Late Contact Info) Description 11/12/2022 Orders Only [facility] CHC MED & PEDS [address] [place] [address] Jocelyn Fleming LPN Social History Tobacco Use [...] Description 12/05/2024 2:00 PM EDT Clinical Support [facility] MEDICINE [address] [place] [address] Sandra Boyd, TONY documented as of this encounter Visit Diagnoses Not on filedocumented in this encounter Care Teams Mastic Floor Layer Relationship Specialty Start Date End Date Pretty Molina MD [address] [place] [address] PCP - General Family Medicine 12/24/20 Guero Burns, PharmD [address] [place] [address] Pharmacist Internal Medicine 09/20/24 documented as of this encounter
--- OUTSIDE RECORDS SUMMARY | 2024-10-25 13:55 | XMS_ITS | Clinical Summary ---
Author Organization [address] [facility] Address [address] [place] [address] Phone Care Team Providers Care Electric Motor Winders Assembler Name Role Phone Pretty Molina MD [...] by mouth 2 times daily. Active ceramide 1,3,1-BC-lgla-hyal ur (CeraVe PM) lotion,extended release Apply topically. [...] 2 times daily. Active miscellaneous medical supply [facility] by Does not apply route. Active NICOTINE, [...] testing completed and was unremarkable Morbid obesity ([facility] V24, [facility] V28) 2018 Type 2 diabetes mellitus ([facility] V24, [facility] V 28) 01/23/2019 Surgical History Surgery Date Site/Laterality Comments TUBAL LIGATION PROCEDURE: HISTORICAL TUBAL LIGATION OTHER SURGICAL HISTORY PROCEDURE: [place] [employer]POS[employer] W/PRIMARY CLOSURE DONOR AREA Medical History Medical History Date Comments HTN (hypertension) DX:HTN (hyper tension) Depression DX:Depression Chronic pain DX:Chronic pain Obesity DX:Obesity 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[facility] V24, [facility] V28) DX:Microalbuminuric diabeti c nephropathy ([facility]) Hyperlipidemia DX:Hyperlipidemi a Carpal tunnel syndrome, bilateral DX:Carpal tunnel syndrome, bilateral Type 2 diabetes mellitus ( S/[facility] V24, [facility] V28) DX:Type 2 diabetes mellitus ([facility]) IBS (irritable bowel syndrome) D X:IBS (irritable [...] * Annual BMP Blood Test (01/10/2024) Pathologist [facility] Annual BMP Blood Test abstracted [facility] Provider HEALTH MAINTENANCE Final Result * Lipid panel (01/10/2024) [facility] Triglycerides 0 mg/dL Comment:no interpretation Cholesterol 0 mg/dL Comment:no interpretation HDL 0 mg/dL Comment:no interpretation LDL Cholesterol 0 mg/dL Comment:no interpretation Blood Venous blood specimen / Unknown [facility] Provider LAB BLOOD ORDERABLES Teresa l Result * Cervical Cancer Screening: HPV (04/18/2023) [facility] Cervical Cancer Screening: HPV No interpreta tion,abstr acted [facility] Provider HEALTH [facility] Final Result * Hemoglobin A1c (07/20/2021) [facility] Hemoglobin A1C 0.0 % Comment:no interpretation Blood Venous blood specimen / Unknown [facility] Provider LAB BLOOD ORDERABLES Teresa l Result from Last 3 Months or Most Recently Relevant to Health Maintenance Insurance [place] Care Teams Electric Motor Winders Assembler Relationship Specialty Start Date End Date Pretty Molina MD [address] [place] [phone] PCP - General 06/01/23
--- OUTSIDE RECORDS SUMMARY | 2024-10-25 13:55 | XMS_ITS | Encounter Summary ---
Author Organization [employer] Address [address] [facility] 7t [place] [address] Care Team Providers Care Phytochemistry Professor Name Role Phone Pretty Molina MD Primary Care Provide r Guero Burns PharmD Unavailable [phone] Reason for Visit * Reason Comments Med Refill Encounter Details Date Type Department Care Team ([facility] st Contact Info) Description 05/09/2023 Refill [facility] MEDICINE [address] [place] [address] Pretty Molina MD [address] [place] [address] Other chronic pain Social History Tobacco Use [...] Description 12/05/2024 2:00 PM EDT Clinical Support [facility] MEDICINE [address] [place] [address] Sandra Boyd, TONY documented as of this encounter Visit Diagnoses Diagnosis Other chronic pain documented in this encounter Additional Health Concerns Assessment Noted Time PHQ-9 Depression Total Score: 12 023 3:08 PM EDT documented as of this encounter Care Teams Phytochemistry Professor Relationship Specialty Start Date End Date Pretty Molina MD [address] [place] [address] PCP - General Family Medicine 12/24/20 Guero Burns, PoloD [address] [place] [address] Pharmacist Internal Medicine 09/20/24 documented as of this encounter
--- OUTSIDE RECORDS SUMMARY | 2024-10-25 13:55 | XMS_ITS | Encounter Summary ---
Author Organization [employer] Address [address] [facility] 7t [place] [address] Care Team Providers Care Yarn Sizer Name Role Phone Pretty Molina MD Primary Care Provide r Guero Burns PharmD Unavailable [phone] Reason for Visit * Reason Comments Med Refill Encounter Details Date Type Department Care Team ([facility] st Contact Info) Description 07/05/2023 Refill [facility] CHC MED & PEDS [address] [place] [address] Pretty Molina MD [address] [place] [address] Social History Tobacco Use Types Packs/Day Years [...] Description 12/05/2024 2:00 PM EDT Clinical Support [facility] MEDICINE [address] [place] [address] Sandra Boyd, TONY documented as of this encounter Visit Diagnoses Not on filedocumented in this encounter Additional Health Concerns Assessment Noted Time PHQ-9 Depression Total Score: 12 023 3:08 PM EDT documented as of this encounter Care Teams Yarn Sizer Relationship Specialty Start Date End Date Pretty Molina MD [address] [place] [address] PCP - General Family Medicine 12/24/20 Guero Burns, PoloD [address] [place] [address] Pharmacist Internal Medicine 09/20/24 documented as of this encounter
--- OUTSIDE RECORDS SUMMARY | 2024-10-25 13:55 | XMS_ITS | Encounter Summary ---
Author Organization [employer] Address [address] [facility] [address] [place] [address] Care Team Providers Care Oncology Nurse Navigator Name Role Phone Pretty Molina MD Primary Care Provide r Guero Burns PharmD Unavailable [phone] Reason for Visit * Reason Comments Med Refill Encounter Details Date Type Department Care Team (Late st Contact Info) Description 02/28/2023 Refill [facility] MEDICINE [address] [place] [address] Pretty Molina MD [address] [place] [address] Social History Tobacco Use Types Packs/Day Years [...] Description 12/05/2024 2:00 PM EDT Clinical Support [facility] MEDICINE [address] [place] [address] Sandra Boyd RN documented as of this encounter Visit Diagnoses Not on filedocumented in this encounter Additional Health Concerns Assessment Noted Time PHQ-9 Depression Total Score: 12 11/24/ 023 3:08 PM EDT documented as of this encounter Care Teams Oncology Nurse Navigator Relationship Specialty Start Date End Date Pretty Molina MD [address] [place] [address] PCP - General Family Medicine 12/24/20 Guero Burns, PoloD [address] [place] [address] Pharmacist Internal Medicine 09/20/24 documented as of this encounter
--- OUTSIDE RECORDS SUMMARY | 2024-10-25 13:55 | XMS_ITS | Clinical Summary ---
Author Organization [employer] Address [address] [facility] [address] [place] [address] Care Team Providers Care Patient Safety Attendant Name Role Phone Pretty Molina MD Primary Care Provide r Guero Burns PharmD Unavailable [phone] Allergies Active Allergy Reactions Criticality Noted Date Comments Morphine Palpitations Low 06/25/2022 tachycardia Medications hydrocortisone (Anusol-HC) 2.5 % rectal creamIndication s:Hemorrhoids, unspecified hemorrhoid type Apply a thin layer to affected area(s)twice daily to four times daily as needed 30 g 023 Active Blood Glucose Monitoring Suppl (FreeStyle Lite) w/Device kitIndications: Type 2 diabetes mellitus with hyperglycemia, without long-term current use of insulin ([facility]) 1 kit 2 times daily. To monitor [...] day. 30 tablet 11 024 2024 Active albuterol (2.5 MG/3ML) 0.083% nebulizer solution INHALE 1 AMPULE USING A NEBULIZER EVERY 6 HOURS NEEDED 90 mL 3 024 Active Jardiance 25 MGIndications:T ype 2 diabetes mellitus with other specified complication, unspecified whether halfway insulin use (CMS/HCC) TAKE 1 TABLET BY [...] HOURS NEEDED 18 g 3 025 Active ammonium lactate (Lac-Hydrin) 12 % [...] 1 025 Active glipiZIDE (Glucotrol) 10 MG tabletIndicatio ns:Diabetes mellitus type 2 in nonobese (CMS/HCC) TAKE 1 TABLET BY MOUTH EVERY MORNING BEFORE BREAKFAST 90 tablet 3 025 Active losartan (Cozaar) 100 MG tabletIndicatio ns:Primary hypertension TAKE 1 TABLET BY MOUTH EVERY MORNING 90 tablet 3 025 Active cetirizine (ZyrTEC) 10 MG tabletIndicatio ns:Seasonal allergies Take 1 tablet (10 mg) by mouth in the morning. 90 tablet 025 Active Dulaglutide (Trulicity) 1.5 MG/0.5ML solution auto-injectorIn dications:Type 2 diabetes mellitus with hyperglycemia, without long-term current use of insulin ([facility]) Inject 1.5 mg under the skin 1 (one) time per week. INJECT ONE PEN (=1.5MG) SUBCUTANEOUSLY ONCE A WEEK DIRECTED 2 mL 1 025 Active oxyCODONE-aceta minophen (Percocet) 5-325 MG tabletIndicatio ns:Other chronic pain Take 1 tablet by mouth every 12 (twelve) hours if needed for severe pain. 56 tablet 025 Active Diclofenac Sodium 1 % gelIndications: Fibromyalgia APPLY 2 GRAMS TOPICALLY TO AFFECTED AREA(S) EVERY TWELVE HOURS 100 g 1 025 Active cholecalciferol (D3-1000) 25 MCG (1000 UT) capsuleIndicati ons:Vitamin D deficiency TAKE 1 CAPSULE BY MOUTH EVERY MORNING 90 capsule 1 025 Active fluticasone (Flonase) 50 MCG/ACT nasal sprayIndication s:Cough in adult patient INHALE 2 SPRAYS IN EACH NOSTRIL ONCE DAILY 48 g 1 025 Active gabapentin (Neurontin) 300 MG capsuleIndicati ons:Neuropathy TAKE 2 CAPSULES BY MOUTH THREE TIMES DAILY IN THE MORNING, EVENING AND BEDTIME 180 capsule 1 025 Active dextran 70-hypromellose (artificial tears) 0.1-0.3 % ophthalmic solutionIndicat ions:Dry eyes Administer 1 drop into both eyes if needed in the morning, at noon, and at bedtime for dry eyes. 30 mL 024 2024 fluticasone (Flonase) 50 MCG/ACT nasal sprayIndication s:Cough in adult patient INHALE 2 SPRAYS IN EACH NOSTRIL ONCE DAILY 48 g 1 024 2024 Discontinued(R eorder (will not trigger notification to Pharmacy)) cholecalciferol (D3-1000) 25 MCG (1000 UT) capsuleIndicati ons:Vitamin D deficiency TAKE 1 CAPSULE BY MOUTH EVERY MORNING 90 capsule 1 024 2024 Discontinued Trulicity 1.5 MG/0.5ML solution auto-injectorIn dications:Type 2 diabetes mellitus with hyperglycemia, without long-term current use of insulin ([facility]) INJECT ONE PEN (=1.5MG) SUBCUTANEOUSLY ONCE A WEEK DIRECTED 2 mL 1 025 2024 Discontinued(R eorder (will not trigger notification to Pharmacy)) gabapentin (Neurontin) 300 MG capsuleIndicati ons:Neuropathy TAKE 2 CAPSULES BY MOUTH THREE TIMES DAILY IN THE MORNING, EVENING AND BEDTIME 180 capsule 1 025 2024 Discontinued oxyCODONE-aceta minophen (Percocet) 5-325 MG tabletIndicatio ns:Other [...] Encounters Date Type Department Care Team Description 10/23/[address] [facility] [address] [place] [address] Pretty Molina MD Neuropathy 10/18/[address] [facility] [address] [place] [address] Lorena Wilson NP Cough in adult patient 10/18/[address] [facility] [address] [place] [address] Pretty Molina MD Vitamin D deficiency; Cough in adult patient 10/17/[address] [facility] [address] [place] [address] Guero Burns, PharmD Tobacco dependence 10/17/[address] [facility] [address] [place] [address] Pretty Molina MD Neuropathy 10/12/[address] [facility] [address] [place] [address] Pretty Molina MD Fibromyalgia 10/10/2024 10:30 AM EDT Office Visit [facility] [address] [place] [phone] Pretty Molina MD Bladder pain (Primary Dx); Type 2 diabetes mellitus with hyperglycemia, without long-term current use of insulin (CMS/HCC); Varicose veins of both lower extremities with pain; Numbness and tingling; Primary hypertension; Lipoma of other specified sites 10/10/2024 Travel 10/08/[address] [facility] [address] [place] [phone] Guero Burns, PharmD Tobacco dependence 10/04/2024 11:[address] [facility] [address] [place] [phone] Guero Burns, PharmD Tobacco dependence (Primary Dx) 10/04/2024 Travel 10/03/[address] [facility] [address] [place] [phone] Pretty Molina MD Pre-visit Planning (Pre visit planning LVM ) 10/03/[address] [facility] [address] [place] [address] Pretty Molina MD Other chronic pain 10/03/[address] [facility] [address] [place] [address] Pretty Molina MD Type 2 diabetes mellitus with hyperglycemia, without long-term current use of insulin (CMS/HCC) 09/21/[address] [facility] [address] [place] [address] Pretty Molina MD Type 2 diabetes mellitus with hyperglycemia, without long-term current use of insulin ([facility]) 09/17/2024 1:[address] [facility] [address] [place] [address] Guero Burns, PharmD Tobacco dependence (Primary Dx) 09/17/2024 Travel 09/16/[address] [facility] [address] [place] [address] Pretty Molina MD Diabetes mellitus type 2 in nonobese ([facility]); Primary hypertension; Seasonal allergies 09/13/[address] [facility] [address] [place] [address] Pretty Molina MD Care Coordination (SDOH f/u) 09/11/2024 Travel 09/03/[address] [facility] [address] [place] [address] Pretty Molina MD Fibromyalgia 08/31/[address] [facility] [address] [place] [address] Pretty Molina MD Other chronic pain 08/31/[address] [facility] [address] [place] [address] Pretty Molina MD Care Coordination (SDOH) 08/24/2024 Population Health Risk Score [facility] () Department [address] [place] [phone] Provider, Population Health Generic 08/19/[address] [facility] [address] [place] [address] Pretty Molina MD Neuropathy 08/17/[address] [facility] [address] [place] [address] Pretty Molina MD 08/16/[address] [facility] [address] [place] [phone] Pretty Molina MD Care Coordination (SDOH) 08/16/2024 Orders Only GENERIC EXTERNAL DATA DEPARTMENT Provider, Generic External Data 08/15/[address] [facility] [address] [place] [address] Pretty Molina MD Essential hypertension 08/09/[address] [facility] [address] [place] [phone] Pretty Molina MD Care Coordination ([facility] f/u) 08/06/[address] [facility] [address] [place] [address] Pretty Molina MD Other chronic pain 08/02/[address] [facility] [address] [place] [phone] Pretty Molina MD Care Coordination ([facility]) 08/02/[address] [facility] [address] [place] [address] [phone] Pretty Molina MD Care Coordination ([facility]) 07/30/[address] [facility] [address] [place] [phone] Pretty Molina MD Type 2 diabetes mellitus with hyperglycemia, without long-term current use of insulin ([facility]) from Last 3 Months Immunizations Immunization Administration Dates Next Due Hep B, adult [...] your housing situation today? I have krystian abiodun 12/28/[address] you li [...] Description 12/05/2024 2:00 PM EDT Clinical Support [address] [address] Sandra Boyd, RN Health Maintenance Due Date [...] 12/28/2023 Depression Screening 01/05/2025 01/06/2024, 01/06/20 24 Diabetes: Hemoglobin A1C 04/11/202510/10/ 025, 04/05/2024, 01/06/2024, Additional history exists Mammogram 07/25/2025 07/25/2024, 1009/2022, 03/10/2022, Additional history exists Lipid Panel 08/16/2025 08/16/2024, 07/3 , 10/11/2022, Additional history exists Alcohol/Substance Use Screening [...] Procedure Name Priority Date/Time Associated Diagnosis Comments VITAMIN D,25-OH,TOTAL,IA Routine 10/15/2024 9:13 AM EDT Numbness and tingling VITAMIN B12/FOLATE, SERUM PANEL Routine 10/15/2024 9:13 AM EDT Numbness and tingling COMPREHENSIVE METABOLIC PANEL Routine 10/15/2024 9:13 AM EDT Type 2 diabetes mellitus with hyperglycemia, without long-term current use of insulin (CMS/HCC) POCT GLYCATED HEMOGLOBIN, TOTAL Routine 10/10/2024 10:14 AM EDT Type 2 diabetes mellitus with hyperglycemia, without long-term current use of insulin (CMS/HCC) POCT GLUCOSE Routine 10/10/2024 10:14 AM EDT Type 2 diabetes mellitus with hyperglycemia, without long-term current use of insulin (CMS/HCC) HEMATOXYLIN AND EOSIN STAIN Routine 08/16/2024 11:21 AM EST GLUCOSE, WHOLE BLOOD Routine 08/16/2024 10:29 AM EST LIPID PANEL, STANDARD Routine 08/16/2024 9:01 AM EST BI MAMMOGRAM SCREENING TOMOSYNTHESIS BILATERAL Routine 07/25/2024 2:30 PM EST Encounter for screening mammogram for malignant neoplasm of breast HPV MRNA E6/E7 REFLEX TO HPV 16, 18/45 Routine 04/18/2023 2:08 PM EST PAP SMEAR Routine 04/18/2023 2:08 PM EST ZZZ HISTORICAL HEPATITIS C ANTIBODY Routine 02/03/2021 12:01 PM EDT from Last 3 Months or Most Recently Relevant to Health Maintenance Results * Vitamin D, 25-Hydroxy, Total, Immunoassay (10/15/2024 9:13 AM EDT) Vitamin D 25-OH Total 43.9 >30 ng/mL [facility] Comment: Health Based Reference Values*< 20 ??ng/mL ??Ddpbucpdi30-89 ng/mL ??Insufficient> 30 ??ng/mL ??Sufficient*Remi GRIFFIN. N Engl J Med. 2007;357:266-280There is no well-established upper level of normal vitamin Dlevels. Some laboratories use 50 ng/mL as an upper limit ofnormal. However, toxicity is patient-dependent and may occurat any level. Careful correlation with the patient'spresentation is necessary and, if there is concern forvitamin D toxicity, treatment should be consideredirrespective of the serum level.Care must be taken in interpreting Vitamin D results fromdifferent laboratories and methodologies. ??Published datademonstrated that results from patients undergoinghemodialysis may show a negative bias when tested withvarious automated 25-OH vitamin D assays when compared toLC- MS/MS.When testing samples from patients whose predominant form ofVitamin D is Vitamin D2, such as patients receiving VitaminD2 supplementation, results that are subtherapeutic shouldbe confirmed with another method such as LC-MS/MS. Blood Venous blood specimen / Unknown 10/15/2024 9:13 AM EDT 10/15/2024 11:08 AM EDT Pretty Zayas MD LAB BLOOD ORDERABLES Final Result Performing Organization Address City/[facility]/ZIP Co de Phone Number [facility] [address] [place] [phone] * Vitamin B12/Folate, Serum Panel (10/15/2024 9:13 AM EDT) Vitamin B12 469 200 - 900 pg/mL [facility] Comment:NORMAL 200-900 PG/ML INDETERMINATE 160-199 PG/ML DEFICIENT < 160 PG/ML Folate 7.5 > or = 4.0 ng/mL [facility] Comment:Reference Values:> o r = 4.0 ng/mL< 4.0 ng/mL suggests folate deficiency Methotrexate, aminopterin and folinic acid(leucovorin) are chemotherapeutic agents whose molecularstructures are similar to folate; therefore, the Architectfolate assay cannot be used for patients using these drugs. Blood Venous blood specimen / Unknown 10/15/2024 9:13 AM EDT 10/15/2024 11:08 AM EDT us Pretty Zayas MD LAB BLOOD ORDERABLES Final Result Performing Organization Address City/[facility]/ZIP Co de Phone Number [facility] [address] [place] [phone] * (ABNORMAL) Comprehensive Metabolic Panel (10/15/2024 9:13 AM EDT) Sodium 140 135 - 145 mmol/L [facility] Potassium 4.2 3.3 - 5.1 mmol/L [facility] Chloride 107 96 - 108 mmol/L [facility] Carbon Dioxide 26 22 - 29 mmol/L [facility] Anion Gap 11(L) 12 - 20 [facility] Urea Nitrogen (BUN) 21(H) 9 - 16 mg/dL [facility] Creatinine, Serum 0.90 0.5 - 1.4 mg/dL [facility] Estimated Glomerular Filt Rate >60 [facility] Comment:Chronic Kidney Disea se: Estimated GFR < 60 mL/min/1.67j2Hvomsr Kidney Disease: Estimated GFR < 15 mL/min/1.73m2 Glucose 124(H) 60 - 115 mg/dL [facility] Calcium 9.0 8.4 - 10.2 mg/dL [facility] Bilirubin, Total 0.4 0.0 - 1.0 mg/dL [facility] Aspartate Amino Transferase 30 5 - 31 U/L [facility] Alanine Aminotransferase 23 0 - 31 U/L [facility] Total Protein 6.2(L) 6.5 - 8.0 g/dL [facility] Albumin Level 3.8 3.5 - 5.0 g/dL [facility] Alkaline Phosphatase 96 39 - 117 U/L [facility] Blood Venous blood specimen / Unknown 10/15/2024 9:13 AM EDT 10/15/2024 11:08 AM EDT us Pretty Zayas MD LAB BLOOD ORDERABLES Final Result [facility] [address] [place] [phone] * (ABNORMAL) POCT HGB A1C (10/10/2024 10:14 AM EDT) Hemoglobin A1C 6.4(A) 4.0 - 6.0 % QC Media Lot # [id number] Lot# Expiration Date 345 Blood 10/10/2024 10:1 4 AM EDT us Pretty Zayas MD POINT OF CARE TEST EN TER/EDIT ORDERABLES Final Result * POCT Glucose (10/10/2024 10:14 AM EDT) Glucose Blood, POC 177 60 - 200 mg/dL Comment:random QC Media Lot # [id number] Lot# Expiration Date Blood Capillary blood specimen / Unknown 10/10/2024 10:14 AM EDT us Pretty Zayas MD POINT OF CARE TEST EN TER/EDIT ORDERABLES Final Result * Hematoxylin and Eosin Stain (08/16/2024 11:21 AM EST) 08/16/2024 11:2 1 AM EST 08/16/2024 1:11 PM EST Narrative [facility] - 08/17/2024 4:59 PM EST ----- ------- Name: Violet Pascal ? Age/Sex: 64/F ? : 1960 Unit#: [id number] ?? Attend Dr: Ramesh Gurrola MD ?Re08/16/24 ?Status: DEP SDC ? Location: HO.SSS ?Disch: ? ----- ------- SPEC : [id number] ? RECD: 08/16/24 ? STATUS: ??SOUT ? REQ NUM: [id number] ? YASMINE: 08/16/24-1120 ? SUBM DR: Ramesh [...] microscopic examination, multiple pieces in cassette A. ??([facility]) Copies To: ?? Pretty Molina MD ?? [facility] ?? [address] [facility] ?? [place] [address] ?? [phone] ?? Ramesh Gurrola MD ?? [facility] ?? [address] ?? [place] [address] ?? [phone] ? CONTINUED ON NEXT PAGE ----- ------- Name: Violet Pascal ? Age/Sex: 64/F ? : 1960 Unit#: [id number] ?? Attend Dr: Ramesh Gurrola MD ?Re08/16/24 ?Status: DEP SDC ? Location: HO.SSS ?Disch: ? ----- ------- SPEC : [id number] ? RECD: 08/16/24-1310 ? STATUS: ??SOUT ? REQ NUM: [id number] ? YASMINE: 08/16/24-1 ? SUBM DR: Ramesh Gurrola MD ? ENTERED: ??08/16/24-1314 ?SP TYPE: Surgical ? OTHR DR: Pretty Molina MD ? ORDERED: ??HE Stain/2, Gross Micro L4 ? ----- ------- Signed (signature on file) Wally Harding MD 08/17/24 7577 ? ----- ------- ? END OF REPORT ? us Generic External Data Provider LAB BLOOD ORDERAB LES Final Result [facility] [address] [place] [phone] [phone] * (ABNORMAL) Glucose, Whole Blood (08/16/2024 10:29 AM EST) Glucose, Whole Blood 150(H) 60 - 115 mg/dL [facility] Comment:METER #: [id number] 08/16/2024 10:2 9 AM EST 08/16/2024 10:33 AM EST Generic External Data Provider LAB BLOOD ORDERAB LES Final Result Performing Organization Address City/[facility]/ZIP Co de Phone Number [facility] [address] [place] [phone] * Lipid Panel, Standard (08/16/2024 9:01 AM EST) Triglycerides 106 <150 mg/dL [facility] Comment:Desirable Triglyceri de: less than 150 mg/dLBorderline High Triglyceride 150-199 mg/dLHigh Triglyceride: 200-499 mg/dLVery High Triglyceride: greater than or equal to 5OO mg/dL Cholesterol 148 <200 mg/dL [facility] Comment:Desirable Cholestero l: less than 200 mg/dLBorderline High Cholesterol: 200-239 mg/dLHigh Cholesterol: greater than 239 mg/dL LDL Cholesterol Calculated 81 <100 mg/dL [facility] Comment:Desirable LDL: less than 100 mg/dLNear Optimal/Above Optimal LDL: 110- 129 mg/dLBorderline High LDL: 130-159 mg/dLHigh LDL: 160-189 mg/dLVery High LDL: greater than or equal to 190 mg/dL HDL Cholesterol 46 >40 mg/dL [facility] Comment:Desirable HDL: great er than 40 mg/dL Note: This HDL assay may give artificially low results in patients with liver disease. 08/16/2024 9:01 AM EST 08/16/2024 9:01 AM EST us Generic External Data Provider LAB BLOOD ORDERAB LES Final Result Performing Organization Address City/[facility]/ZIP Co de Phone Number [facility] [address] [place] [phone] * BI Mammogram Screening Tomosynthesis Bilateral (07/25/2024 2:30 PM EST) Anatomical Region Laterality Modality Breast Bilateral Mammography 07/25/2024 2:30 PM EST Narrative 08/03/2024 4:35 PM EST ? [facility] [place] ? [address] ?[place] [address] ? Mammography Report ? Signed ? Patient: Violet Pascal ?MR#: [id number] ?? [id number] ? : 1960 ?Acct:[id number] ? Age/Sex: 64 / F ?ADM Date: 07/25/24 ? Loc: HO.MAMMO ? Attending Dr: Pretty Zayas MD ? Ordering Physician: Pretty Molina MD ?Results: ?? 2Benign Findings ? Date of Service: 07/25/24 ?Follow Up: 1 Year From Orig ?? inal Mammogram ? Procedure(s): MM tomosynthesis screening BI ?? Accession Number(s): [id number] ? cc: Pretty Molina MD ? EXAMINATION: [...] DD/ 1430 ? TD/TT: 07/25/24 1446 ? Ordering Box Operator: ? Procedure Note Donfabiolajosiemehnazter, Image - 08/03/2024 [facility] [address] [place] [address] Mammography Report Signed Patient: Abraham Pascal#: [id number] : 1960cct:[id number] Age/Sex: 64 / FADM Date: 07/25/24 Loc: [facility] Attending Dr: Pretty Zayas MD Ordering Physician: Pretty Molinaults: 2Benign Findings Date of Service: 07/25/24Follow Up: 1 Year From Orig inal Mammogram Procedure(s): MM tomosynthesis screening BI Accession Number(s): [id number] cc: Pretty Molina MD EXAMINATION: MM SCREENING [...] 08/03/24 1632 DD/ 1430 TD/TT: 07/25/24 1446 Ordering Box Operator: Pretty Zayas MD IMG BI PROCEDURES Fin al Result * HPV mRNA E6/E7 w/Reflex to HPV Genotypes 16, 18/45 (04/18/2023 2:08 PM EST) HPV nRNA E6/E7 Not Detected Not Detected [facility] Comment:Methodology: Transcr iption-Mediated AmplificationThis assay detects E6/E7 viral messenger RNA (mRNA) from 14high-risk HPV types (16,18,31,33,35,39,45,51,52,56,58,59,66,68).Cervical sources are required for HPV testing.If a vaginal source from a patient who has had atotal hysterectomy with removal of cervix wassubmitted, please contact the testing laboratoryfor alternative testing options.For additional information, please refer [email or web address].[employer]/faq/[email or web address](This link if provided for information/educational purposes only.)THIS TEST WAS PERFORMED AT:[employer] [place] [phone] ANNE MD HPV mRNA E6/E7 TNP [facility] HPV 16 RNA TNP [facility] HPV 18/45 RNA TNP [facility] 04/18/2023 2:08 PM EST 04/19/2023 8:20 AM EST us Cristian Briones CNM LAB CYTOLOGY ORDERABLES F inal Result [facility] [address] [place] [phone] * Pap Smear (04/18/2023 2:08 PM EST) 04/18/2023 2:08 PM EST 04/19/2023 8:20 AM EST Narrative [facility] - 04/26/2023 1:40 PM EST ----- ------- Name: Violet Pascal ? Age/Sex: 63/F ? : 1960 Unit#: [id number] ?? Attend Dr: CRISTIAN BRIONES CNM ?Re04/18/23 ?Status: DEP REF ? Location: HO.HHCLNP ? Disch: ? ----- ------- SPEC : [id number] ?RECD: 04/19/23 ? STATUS: ??SOUT ? REQ NUM: [id number] ? YASMINE: 04/18/23 ? SUBM DR: CRISTIAN [...] 66, 68) ?? HPV testing performed by [facility], [place], [place]. ??See reference laboratory ?? pion of the EMR for entire report. ?Clinical Information LMP: Postmenopausal Previous PAP test: Unknown date/findings ? Material Received ?? ThinPrep-Cervical ----- ------- Signed (signature on file) MARIOLA Walker (ASCP) 04/26/23 1340 ? ----- ------- ? END OF REPORT ? us Cristian Briones [facility] LAB CYTOLOGY ORDERABLES F inal Result [facility] [address] [place] [phone] * Hepatitis C Antibody (02/03/2021 12:01 PM EDT) [facility] Hepatitis C Antibody Nonreactive Nonreactive [facility] Comment: Antibodies to HCV not detected; does not exclude early acute HCV infection. HIV AB/AG Nonreactive Nonreactive [facility] Comment: HIV-1 p24 Ag and/or [...] detection of this assay. ?? [employer] HIV Ag/Ab Combo assay result and supplemental [...] [facility] [address] from Last 3 Months or Most Recently Relevant to Health Maintenance Insurance [facility] [employer] C[employer] Care Teams Patient Safety Attendant Relationship Specialty Start Date End Date Pretty Molina MD [address] [place] [address] PCP - General Family Medicine 12/24/20 Guero Burns, PharmD [address] [place] [address] Pharmacist Internal Medicine 09/20/24
--- OUTSIDE RECORDS SUMMARY | 2024-10-25 13:55 | XMS_ITS | Encounter Summary ---
Author Organization [employer] Address [address] [facility] [address] [place] [address] Care Team Providers Care Predator Control Trapper Name Role Phone Pretty Molina MD Primary Care Provide r Guero Burns PharmD Unavailable [phone] Reason for Visit * Reason Onset Date Comments Med Refill 01/05/2023 Encounter Details Date Type Department Care Team (Late st Contact Info) Description 01/05/2023 Telephone [facility] MEDICINE [address] [place] [address] Pretty Molina MD [address] [place], [place] [phone] Med Refill Social History Tobacco Use Types [...] 2:00 PM EDT Clinical Support [facility] MED[facility]INE [address] [place] [phone] Sandra Boyd, RN documented as of this encounter Visit Diagnoses Not on filedocumented in this encounter Additional Health Concerns Assessment Noted Time PHQ-9 Depression Total Score: 12 023 3:08 PM EDT documented as of this encounter Care Teams Predator Control Trapper Relationship Specialty Start Date End Date Pretty Molina MD [address] [place] [address] PCP - General Family Medicine 12/24/20 Guero Burns, PoloD [address] [place] [address] Pharmacist Internal Medicine 09/20/24 documented as of this encounter
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
--- OUTSIDE RECORDS SUMMARY | 2024-10-25 13:55 | XMS_ITS | Encounter Summary ---
Author Organization [email or web address] Address [address] [facility] [address] [place] [address] Care Team Providers Care Garde Manager Name Role Phone Pretty Molina MD Primary Care Provide r Guero Burns PharmD Unavailable [phone] Reason for Visit * Reason Comments Med Refill Encounter Details Date Type Department Care Team ([facility] st Contact Info) Description 04/15/2024 Refill [facility] [address] [place] [address] Pretty Molina MD [address] [place] [address] Social History Tobacco Use Types Packs/Day Years [...] Description 12/05/2024 2:00 PM EDT Clinical Support [facility] [address] [place] [address] Sandra Boyd, TONY documented as of this encounter Visit Diagnoses Not on filedocumented in this encounter Additional Health Concerns Assessment Noted Time PHQ-9 Depression Total Score: 4 01/06/20 24 2:22 PM EDT documented as of this encounter Care Teams Garde Manager Relationship Specialty Start Date End Date Pretty Molina MD 230 [place] [address] PCP - General Family Medicine 12/24/20 Guero Burns, PoloD [address] [place] [address] Pharmacist Internal Medicine 09/20/24 documented as of this encounter
--- OUTSIDE RECORDS SUMMARY | 2024-10-25 13:55 | XMS_ITS | Encounter Summary ---
Author Organization [employer] Address [address] [facility] [address] [place] [address] Care Team Providers Care Teacher Early Childhood Development Name Role Phone Pretty Molina MD Primary Care Provide r Guero Burns PharmD Unavailable [phone] Encounter Details Date Type Department Care Team (Latest Contact Info) Description 2019 Abstract [facility] CONVERSION[facility] Dental, Provider, DDS Social History [...] Description 12/05/2024 2:00 PM EDT Clinical Support [facility] MEDICINE [address] [place] [address] Sandra Boyd RN documented as of this encounter Visit Diagnoses Not on filedocumented in this encounter Care Teams Teacher Early Childhood Development Relationship Specialty Start Date End Date Pretty Molina MD [address] [place] [address] PCP - General Family Medicine 12/24/20 Guero Burns, PharmD [address] [place] [address] Pharmacist Internal Medicine 09/20/24 documented as of this encounter
--- OUTSIDE RECORDS SUMMARY | 2024-10-25 13:55 | XMS_ITS | Encounter Summary ---
Author Organization [employer] Address [address] [facility] 7t [place] [address] Care Team Providers Care Assistant Store Manager Operations Name Role Phone Pretty Molina MD Primary Care Provide r Guero Burns PharmD Unavailable [phone] Reason for Visit * Reason Comments Med Refill Encounter Details Date Type Department Care Team ([facility] st Contact Info) Description 03/30/2023 Refill [facility] [address] [place] [address] Pretty Molina MD [address] [place] [address] Other chronic pain Social History Tobacco Use [...] [facility] [address] [place] [address] Sandra Boyd, TONY documented as of this encounter Visit Diagnoses Diagnosis Other chronic pain documented in this encounter Additional Health Concerns Assessment Noted Time PHQ-9 Depression Total Score: 12 023 3:08 PM EDT documented as of this encounter Care Teams Assistant Store Manager Operations Relationship Specialty Start Date End Date Pretty Molina MD 230 [place] [address] PCP - General Family Medicine 12/24/20 Guero Burns, PoloD [address] [place] [address] Pharmacist Internal Medicine 09/20/24 documented as of this encounter
--- OUTSIDE RECORDS SUMMARY | 2024-10-25 13:55 | XMS_ITS | Encounter Summary ---
Author Organization [employer] Address [address] [facility] 7t [place] [address] Care Team Providers Care Filter Worker Name Role Phone Pretty Molina MD Primary Care Provide r Guero Burns PharmD Unavailable [phone] Reason for Visit * Reason Comments Med Refill Encounter Details Date Type Department Care Team ([facility] st Contact Info) Description 10/17/2024 Refill [facility] MEDICINE [address] [place], [place] [phone] Guero Burns, PharmD 230 [place], [place] [phone] Tobacco dependence Social History Tobacco Use Types [...] 12/05/2024 2:00 PM EDT Clinical Support [facility] MEDICINE [address] [place] [address] Sandra Boyd, TONY documented as of this encounter Visit Diagnoses Diagnosis Tobacco dependence Tobacco use disorder documented in this encounter Additional Health Concerns Assessment Noted Time PHQ-9 Depression Total Score: 4 01/06/20 24 2:22 PM EDT documented as of this encounter Care Teams Filter Worker Relationship Specialty Start Date End Date Pretty Molina MD [address] [place] [address] PCP - General Family Medicine 12/24/20 Guero Burns, PoloD [address] [place] [address] Pharmacist Internal Medicine 09/20/24 documented as of this encounter
--- OUTSIDE RECORDS SUMMARY | 2024-10-25 13:55 | XMS_ITS | Encounter Summary ---
Author Organization [employer] Address [address] [facility] 7t [place] [address] Care Team Providers Care Parking Control Officer Name Role Phone Pretty Molina MD Primary Care Provide r Guero Burns PharmD Unavailable [phone] Reason for Visit * Reason Comments Med Refill Encounter Details Date Type Department Care Team ([facility] st Contact Info) Description 05/10/2023 Refill [facility] MEDICINE 230 [place] [address] Pretty Molina MD [address] [place] [address] Other chronic pain Social History Tobacco Use [...] Description 12/05/2024 2:00 PM EDT Clinical Support [facility] MEDICINE [address] [place] [address] Sandra Boyd, TONY documented as of this encounter Visit Diagnoses Diagnosis Other chronic pain documented in this encounter Additional Health Concerns Assessment Noted Time PHQ-9 Depression Total Score: 12 023 3:08 PM EDT documented as of this encounter Care Teams Parking Control Officer Relationship Specialty Start Date End Date Pretty Molina MD [address] [place] [address] PCP - General Family Medicine 12/24/20 Guero Burns, PoloD [address] [place] [address] Pharmacist Internal Medicine 09/20/24 documented as of this encounter
--- OUTSIDE RECORDS SUMMARY | 2024-10-25 13:55 | XMS_ITS | Encounter Summary ---
Author Organization [employer] Address [address] [facility] 7t [place] [address] Care Team Providers Care Pug Machine Operator Name Role Phone Pretty Molina MD Primary Care Provide r Guero Burns PharmD Unavailable [phone] Reason for Visit * Reason Comments Med Refill Encounter Details Date Type Department Care Team ([facility] st Contact Info) Description 10/23/2024 Refill [facility] MEDICINE [address] [place] [address] Pretty Molina MD [address] [place], [place] [phone] Neuropathy Social History Tobacco Use Types Packs/Day [...] 2:00 PM EDT Clinical Support [facility] MEDICINE [address] [place] [address] Sandra Boyd, TONY documented as of this encounter Visit Diagnoses Diagnosis Neuropathy Mononeuritis of unspecified site documented in this encounter Additional Health Concerns Assessment Noted Time PHQ-9 Depression Total Score: 4 01/06/20 24 2:22 PM EDT documented as of this encounter Care Teams Pug Machine Operator Relationship Specialty Start Date End Date Pretty Molina MD [address] [place] [address] PCP - General Family Medicine 12/24/20 Guero Burns, Mario [address] [place] [address] Pharmacist Internal Medicine 09/20/24 documented as of this encounter
--- OUTSIDE RECORDS SUMMARY | 2024-10-25 13:55 | XMS_ITS | Encounter Summary ---
Author Organization [employer] Address [address] [facility] 7t [place] [address] Care Team Providers Care Oyster Opener Name Role Phone Pretty Molina MD Primary Care Provide r Guero Burns PharmD Unavailable [phone] Reason for Visit * Reason Comments Med Refill Encounter Details Date Type Department Care Team ([facility] st Contact Info) Description 04/21/2024 Refill [facility] MEDICINE [address] [place] [address] Pretty Molina MD [address] [place] [address] Neuropathy Social History Tobacco Use Types Packs/Day [...] Description 12/05/2024 2:00 PM EDT Clinical Support [facility] MEDICINE [address] [place] [address] Sandra Boyd, TONY documented as of this encounter Visit Diagnoses Diagnosis Neuropathy Mononeuritis of unspecified site documented in this encounter Additional Health Concerns Assessment Noted Time PHQ-9 Depression Total Score: 4 01/06/20 24 2:22 PM EDT documented as of this encounter Care Teams Oyster Opener Relationship Specialty Start Date End Date Pretty Molina MD [address] [place] [address] PCP - General Family Medicine 12/24/20 Guero Burns, Mario [address] [place] [address] Pharmacist Internal Medicine 09/20/24 documented as of this encounter
--- OUTSIDE RECORDS SUMMARY | 2024-10-25 13:55 | XMS_ITS | Encounter Summary ---
Author Organization [employer] Address [address] [facility] 7t [place] [address] Care Team Providers Care Senior Gis Analyst Name Role Phone Pretty Molina MD Primary Care Provide r Guero Burns PharmD Unavailable [phone] Reason for Visit * Reason Comments Med Refill Encounter Details Date Type Department Care Team ([facility] st Contact Info) Description 10/17/2024 Refill [facility] MED[facility]INE [address] [place] [address] Pretty Molina MD [address] [place], [place] [phone] Neuropathy Social History Tobacco Use Types Packs/Day [...] [facility]ICAL [facility] MEDICINE [address] [place] [address] Sandra Boyd, TONY documented as of this encounter Visit Diagnoses Diagnosis Neuropathy Mononeuritis of unspecified site documented in this encounter Additional Health Concerns Assessment Noted Time PHQ-9 Depression Total Score: 4 01/06/20 24 2:22 PM EDT documented as of this encounter Care Teams Senior Gis Analyst Relationship Specialty Start Date End Date Pretty Molina MD [address] [place] [address] PCP - General Family Medicine 12/24/20 Guero Burns, Mario [address] [place] [address] Pharmacist Internal Medicine 09/20/24 documented as of this encounter
== END 2024-10-25 14:09 | disposition home or self-care (01) ==
LOC: HO.HVS 13:20
PROVIDERS: PCP Internal Medicine; Visit Provider Physician Assistant Surgical
DX: I83.11 Varicose veins of right lower extremity with inflammation (principal); I83.12 Varicose veins of left lower extremity with inflammation
CPT/HCPCS: 99204

== ENCOUNTER → 2024-10-25 13:19 | Outpatient (BNVA) | payer MEDICAID, SELFPAY | PROVIDERS: PCP Internal Medicine; Visit Provider Physician Assistant Surgical | DX: I83.11 Varicose veins of right lower extremity with inflammation (principal); I83.12 Varicose veins of left lower extremity with inflammation | CPT/HCPCS: 99212 ==

== ENCOUNTER 2024-10-29 11:43 | Outpatient (REF) | payer MEDICAID, SELFPAY ==
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
[2024-10-29 13:46] LABS: Creatinine Urine 105.96 mg/dL; Microalbum/Creatinine Ratio Ur 374.6 ug/mg cr (<30)
== END 2024-10-29 11:44 | disposition home or self-care (01) ==
LOC: HO.HHCL 11:43
PROVIDERS: Visit Provider Internal Medicine
DX: E11.65 Type 2 diabetes mellitus with hyperglycemia (principal)
CPT/HCPCS: 82043; 82570

== ENCOUNTER 2024-11-13 06:50 | Day surgery (SDC) | payer MEDICAID, SELFPAY ==
--- OUTSIDE RECORDS SUMMARY | 2024-10-08 17:07 | XMS_ITS | Encounter Summary ---
Author Organization [employer] Address 75 [facility] 7t [place] [address] Care Team Providers Care Apprentice Painter Hand Name Role Phone Pretty Molina MD Primary Care Provide r Guero Burns PharmD Unavailable [phone] Reason for Visit * Reason Comments Med Refill Encounter Details Date Type Department Care Team (Late Contact Info) Description 02/28/2023 Refill [facility] MED[facility]INE 230 [place] [address] Pretty Molina MD 230 [place], [place] [phone] Social History Tobacco Use Types Packs/Day Years [...] Department Care Team (Late Contact Info) Description 10/10/2024 10:30 AM EDT Office Visit [facility] MED[facility]INE 230 [place], [place] [phone] Pretty Molina MD 230 [place] [address] 10/23/2024 1:30 PM EDT Telemedicine [address] [address] Guero Burns, PharmD 230 [place] [address] 12/05/2024 2:00 PM EDT Clinical Support [address] [address] Sandra Boyd, TONY documented as of this encounter Visit Diagnoses Not on filedocumented in this encounter Additional Health Concerns Assessment Noted Time PHQ-9 Depression Total Score: 12 023 3:08 PM EDT documented as of this encounter Care Teams Apprentice Painter Hand Relationship Specialty Start Date End Date Pretty Molina MD [address] [place] [address] PCP - General Family Medicine 12/24/20 Guero Burns, PharmD [address] [place] [address] [phone] Pharmacist Internal Medicine 09/20/24 documented as of this encounter
--- OUTSIDE RECORDS SUMMARY | 2024-10-08 17:07 | XMS_ITS | Encounter Summary ---
Author Organization [employer] Address 75 [facility] 7t [place] [address] Care Team Providers Care Customer Operations Intern Name Role Phone Pretty Molina MD Primary Care Provide r Guero Burns PharmD Unavailable [phone] Reason for Visit * Reason Comments Med Refill Encounter Details Date Type Department Care Team (Late st Contact Info) Description 05/09/2023 Refill [facility] MEDICINE 230 [place] [address] Pretty Molina MD 230 [place], [place] [phone] Other chronic pain Social History Tobacco Use [...] Care Team (Late st Contact Info) Description 10/10/2024 10:30 AM EDT Office Visit [address] [address] Pretty Molina MD [address] [place] [address] 10/23/2024 1:30 PM EDT Telemedicine [address] [address] Guero Burns PharmD [address] [place] [address] 12/05/2024 2:00 PM EDT Clinical Support [address] [address] Sandra Boyd RN documented as of this encounter Visit Diagnoses Diagnosis Other chronic pain documented in this encounter Additional Health Concerns Assessment Noted Time PHQ-9 Depression Total Score: 12 023 3:08 PM EDT documented as of this encounter Care Teams Customer Operations Intern Relationship Specialty Start Date End Date Pretty Molina MD [address] [place] [address] PCP - General Family Medicine 12/24/20 Guero Burns, PharmD [address] [place] [address] Pharmacist Internal Medicine 09/20/24 documented as of this encounter
--- OUTSIDE RECORDS SUMMARY | 2024-10-08 17:07 | XMS_ITS | Encounter Summary ---
Author Organization [employer] Address [address] [facility] 7t [place] [address] Care Team Providers Care Case Briefer Name Role Phone Pretty Molina MD Primary Care Provide r Guero Burns PharmD Unavailable [phone] Reason for Visit * Reason Comments Med Refill Encounter Details Date Type Department Care Team (Late st Contact Info) Description 09/21/2024 Refill [facility] MEDICINE 230 [place] [address] Pretty Molina MD 230 [place], [place] [phone] Type 2 diabetes mellitus with hyperglycemia, without long-term current use of insulin ([facility]) Social History Tobacco Use Types [...] the past 12 months, has t he [employer], gas, oil or water [employer] threatened to shut off services in your [...] Description 10/10/2024 10:30 AM EDT Office Visit [facility] MEDICINE [address] [place] [address] Pretty Molina MD [address] [place] [address] 10/23/2024 1:30 PM EDT Telemedicine [facility] MEDICINE [address] [place] [address] Guero Burns, PharmD [address] [place] [address] 12/05/2024 2:00 PM EDT Clinical Support [address] [address] Sandra Boyd, RN documented as of this encounter Visit Diagnoses Diagnosis Type 2 diabetes mellitus with hyperglycemia, without long-term current use of insulin ([facility]) documented in this encounter Additional Health Concerns Assessment Noted Time PHQ-9 Depression Total Score: 4 01/06/20 24 2:22 PM EDT documented as of this encounter Care Teams Case Briefer Relationship Specialty Start Date End Date Pretty Molina MD 230 [place] [address] PCP - General Family Medicine 12/24/20 Guero Burns, PoloD 230 [place] [address] Pharmacist Internal Medicine 09/20/24 documented as of this encounter
--- OUTSIDE RECORDS SUMMARY | 2024-10-08 17:07 | XMS_ITS | Encounter Summary ---
Author Organization [employer] Address 75 [facility] 7t [place] [address] Care Team Providers Care Geology Professor Name Role Phone Pretty Molina MD Primary Care Provide r Guero Burns PharmD Unavailable [phone] Reason for Visit * Reason Comments Med Refill Encounter Details Date Type Department Care Team (Late st Contact Info) Description 06/11/2022 Refill [facility] MEDICINE 230 [place] [address] Yasmine Hernandez MD 230 [place] [address] Chronic pain syndrome Social History Tobacco Use [...] Cedillo RN - 06/15/2022 10:45 AM EST Stencil Printer ck 06/15/22. documented in this encounter Plan of Treatment Upcoming Encounters Date Type Department Care Team (Late st Contact Info) Description 10/10/2024 10:30 AM EDT Office Visit [facility] MED[facility]INE 230 [place] [address] Pretty Molina MD [address] [place] [address] 10/23/2024 1:30 PM EDT Telemedicine [address] [address] Guero Burns, PharmD [address] [place] [address] 12/05/2024 2:00 PM EDT Clinical Support [address] [phone] Sandra Boyd RN documented as of this encounter Visit Diagnoses Diagnosis Chronic pain syndrome documented in this encounter Care Teams Geology Professor Relationship Specialty Start Date End Date Pretty Molina MD [address] [place] [address] PCP - General Family Medicine 12/24/20 Guero Burns, PharmD [address] [place] [address] [phone] Pharmacist Internal Medicine 09/20/24 documented as of this encounter
--- OUTSIDE RECORDS SUMMARY | 2024-10-08 17:07 | XMS_ITS | Encounter Summary ---
Author Organization [email or web address] Address 75 [facility] 7t [place] [address] Care Team Providers Care Brokerage Manager Name Role Phone Pretty Molina MD Primary Care Provide r Guero Burns PharmD Unavailable Reason for Visit * Reason Comments Med Refill Encounter Details Date Type Department Care Team (Late st Contact Info) Description 07/05/2023 Refill [facility] MED & PEDS [address] [place] [address] Pretty Molina MD 230 [place] [address] Social History Tobacco Use Types Packs/Day Years [...] Description 10/10/2024 10:30 AM EDT Office Visit [address] [address] Pretty Molina MD [address] [place] [address] 10/23/2024 1:30 PM EDT Telemedicine [address] [address] Guero Burns PharmD [address] [place] [address] 12/05/2024 2:00 PM EDT Clinical Support [address] [address] Sandra Boyd RN documented as of this encounter Visit Diagnoses Not on filedocumented in this encounter Additional Health Concerns Assessment Noted Time PHQ-9 Depression Total Score: 12 023 3:08 PM EDT documented as of this encounter Care Teams Brokerage Manager Relationship Specialty Start Date End Date Pretty Molina MD [address] [place] [address] [phone] PCP - General Family Medicine 12/24/20 Guero Burns, PharmD [address] [place] [address] [phone] Pharmacist Internal Medicine 09/20/24 documented as of this encounter
--- OUTSIDE RECORDS SUMMARY | 2024-10-08 17:07 | XMS_ITS | Encounter Summary ---
Author Organization [employer] Address 75 [facility] 7t [place] [address] Care Team Providers Care Captain Airline Pilot Name Role Phone Pretty Molina MD Primary Care Provide r Guero Burns PharmD Unavailable [phone] Reason for Visit * Reason Comments Med Refill Encounter Details Date Type Department Care Team (Late st Contact Info) Description 05/02/2023 Refill [facility] MEDICINE 230 [place] [address] Jocelyn Bender DO 230 [place] [address] Seasonal allergic rhinitis, unspecified trigger Social History [...] Description 10/10/2024 10:30 AM EDT Office Visit [address] [address] Pretty Molina MD [address] [place] [address] 10/23/2024 1:30 PM EDT Telemedicine [address] [address] Guero Burns PharmD [address] [place] [address] 12/05/2024 2:00 PM EDT Clinical Support [address] [address] Sandra Boyd RN documented as of this encounter Visit Diagnoses Diagnosis Seasonal allergic rhinitis, unspecified trigger documented in this encounter Additional Health Concerns Assessment Noted Time PHQ-9 Depression Total Score: 12 023 3:08 PM EDT documented as of this encounter Care Teams Captain Airline Pilot Relationship Specialty Start Date End Date Pretty Molina MD [address] [place] [address] PCP - General Family Medicine 12/24/20 Guero Burns PharmD [address] [place] [address] Pharmacist Internal Medicine 09/20/24 documented as of this encounter
--- OUTSIDE RECORDS SUMMARY | 2024-10-08 17:07 | XMS_ITS | Encounter Summary ---
Author Organization [employer] Address 75 [facility] 7t [place] [address] Care Team Providers Care Gi Physician Name Role Phone Pretty Molina MD Primary Care Provide r Guero Burns PharmD Unavailable [phone] Reason for Visit * Reason Comments Pre-visit Planning Pre visit planning L VM Encounter Details Date Type Department Care Team (Late st Contact Info) Description 10/03/2024 Patient Outreach [facility] MEDICINE 230 [place] [address] Pretty Molina MD 230 [place] [address] Pre-visit Planning (Pre visit planning LVM ) [...] Upcoming Encounters Date Type Department Care Team ([facility] st Contact Info) Description 10/10/2024 10:30 AM EDT Office Visit [facility] MEDICINE [address] [place] [address] Pretty Molina MD 230 [place] [address] 10/23/2024 1:30 PM EDT Telemedicine [facility] MEDICINE [address] [place] [address] Guero Burns, PharmD [address] [place] [address] [place] [address] 12/05/2024 2:00 PM EDT Clinical Support [facility] MEDICINE 230 [place], [place] [phone] Sandra Boyd, RN documented as of this encounter Visit Diagnoses Not on filedocumented in this encounter Additional Health Concerns Assessment Noted Time PHQ-9 Depression Total Score: 4 01/06/20 24 2:22 PM EDT documented as of this encounter Care Teams Gi Physician Relationship Specialty Start Date End Date Pretty Molina MD [address] [place] [address] [phone] PCP - General Family Medicine 12/24/20 Guero Burns, PoloD [address] [place] [address] Pharmacist Internal Medicine 09/20/24 documented as of this encounter
--- OUTSIDE RECORDS SUMMARY | 2024-10-08 17:07 | XMS_ITS | Encounter Summary ---
Author Organization [email or web address] Address 75 [facility] 7t [place] [address] Care Team Providers Care Housekeeper Manager Name Role Phone Pretty Molina MD Primary Care Provide r Guero Burns PharmD Unavailable [phone] Encounter Details Date Type Department Care Team (Late st Contact Info) Description 07/12/2022 Orders Only [facility] MED & PEDS [address] [place], [place] [phone] Jocelyn Fleming LPN Social History Tobacco Use [...] Description 10/10/2024 10:30 AM EDT Office Visit [facility] MEDICINE [address] [place] [address] Pretty Molina MD [address] [place] [address] 10/23/2024 1:30 PM EDT Telemedicine [facility] MEDICINE [address] [place] [address] Guero Burns, PharmD 230 [place], [place] [phone] 12/05/2024 2:00 PM EDT Clinical Support [facility] MEDICINE 230 [place] [address] Sandra Boyd, TONY documented as of this encounter Visit Diagnoses Not on filedocumented in this encounter Care Teams Housekeeper Manager Relationship Specialty Start Date End Date Pretty Molina MD [address] [place] [address] PCP - General Family Medicine 12/24/20 Guero Burns, PoloD [address] [place] [address] Pharmacist Internal Medicine 09/20/24 documented as of this encounter
--- OUTSIDE RECORDS SUMMARY | 2024-10-08 17:07 | XMS_ITS | Encounter Summary ---
Author Organization [employer] Address [address] [facility] 7t [place] [address] Care Team Providers Care [facility] Hand Name Role Phone Pretty Molina MD Primary Care Provide r Guero Burns PharmD Unavailable [phone] Encounter Details Date Type Department Care Team (Late st Contact Info) Description 09/01/2022 Orders Only [facility] [address] [place], [place] [phone] Jocelyn Fleming LPN Social History Tobacco Use [...] Description 10/10/2024 10:30 AM EDT Office Visit [facility] [address] [place] [address] [phone] Pretty Molina MD [address] [place] [address] 10/23/2024 1:30 PM EDT Telemedicine [address] [address] Guero Burns, PharmD [address] [place] [phone] 12/05/2024 2:00 PM EDT Clinical Support [address] [address] Sandra Boyd RN documented as of this encounter Visit Diagnoses Not on filedocumented in this encounter Care Teams D[facility] Hand Relationship Specialty Start Date End Date Pretty Molina MD [address] [place] [address] [phone] PCP - General Family Medicine 12/24/20 Guero Burns, PharmD [address] [place] [address] [phone] Pharmacist Internal Medicine 09/20/24 documented as of this encounter
--- OUTSIDE RECORDS SUMMARY | 2024-10-08 17:07 | XMS_ITS | Clinical Summary ---
Author Organization [employer] Address [address] [facility] 7t [place] [address] Care Team Providers Care Advertising Solicitor Name Role Phone Pretty Molina MD Primary Care Provide r Guero Burns PharmD Unavailable [phone] Allergies Active Allergy Reactions Criticality Noted Date Comments Morphine Palpitations Low 06/25/2022 tachycardia Medications hydrocortisone (Anusol-HC) 2.5 % rectal creamIndications :Hemorrhoids, unspecified hemorrhoid type Apply a thin layer to affected area(s)twice daily to four times daily as needed 30 g 023 Active Blood Glucose Monitoring Suppl (FreeStyle Lite) w/Device kitIndications:T ype 2 diabetes mellitus with hyperglycemia, without long-term current use of insulin ([facility]) 1 kit 2 times daily. [...] PER WEEK. 42.5 g 1 024 Active glucose blood (FREESTYLE [...] mellitus with other specified complication, unspecified whether custodial insulin use (CMS/[facility]) TAKE 1 TABLET BY MOUTH [...] BEDTIME NEEDED FOR DRY EYES 15 mL 025 Active Aspirin Low Dose 81 MG [...] TIMES DAILY 100 each 11 025 Active NIFEdipine XL (Procardia XL) 60 MG 24 hr tabletIndication s:Essential hypertension TAKE 1 TABLET BY MOUTH EVERYDAY AT NOON 90 tablet 3 025 Active albuterol (Ventolin HFA) 108 (90 Base) MCG/ACT inhaler INHALE 2 PUFFS BY MOUTH EVERY 4 TO 6 HOURS NEEDED 18 g 3 Active gabapentin (Neurontin) 300 MG capsuleIndicatio ns:Neuropathy TAKE 2 CAPSULES BY MOUTH THREE TIMES DAILY IN THE MORNING, EVENING AND BEDTIME 180 capsule 1 Active Diclofenac Sodium 1 % gelIndications:F ibromyalgia Apply 1 Application topically 2 times daily. APPLY 2 GRAMS TOPICALLY TO AFFECTED AREA(S) EVERY TWELVE HOURS NEEDED 100 g 1 Active ammonium lactate (Lac-Hydrin) 12 % lotion [...] at the same time. 21 patch 1 025 Active nicotine polacrilex (FT Nicotine) 4 MG [...] by mouth in the morning. 90 tablet 025 Active Dulaglutide (Trulicity) 1.5 MG/0.5ML solution auto-injectorInd ications:Type 2 diabetes mellitus with hyperglycemia, without long-term current use of insulin (CMS/[facility]) Inject 1.5 mg under the skin 1 (one) time per week. INJECT ONE PEN (=1.5MG) SUBCUTANEOUSLY ONCE A WEEK DIRECTED 2 mL 1 025 Active oxyCODONE-acetam inophen (Percocet) 5-325 MG tabletIndication s:Other chronic pain Take 1 tablet by mouth every 12 (twelve) hours if needed for severe pain. 56 tablet 025 Active Proventil HFA 108 (90 Base) MCG/ACT [...] hyperglycemia, without long-term current use of insulin ([facility]) Inject 1.5 mg under the skin 1 (one) time per week. 4 pen 11 023 2024 Discontinued RSV Pre-Fusion F A&B Vac Rcmb (Abrysvo) 120 MCG/0.5ML reconstituted solutionIndicati ons:Type 2 diabetes mellitus with hyperglycemia, without long-term current use of insulin ([facility]) Inject 1 each into the [...] cleanup (will not trigger notification to Pharmacy)) dextran 70-hypromellose (artificial tears) 0.1-0.3 % ophthalmic solutionIndicati ons:Dry eyes Administer 1 drop into both eyes if needed in the morning, at noon, and at bedtime for dry eyes. 30 mL 024 2024 Glycerin-Hyprome llose-PEG 400 (SM Dry Eye Relief) [...] tabletIndication s:Diabetes mellitus type 2 in nonobese ([facility]) TAKE 1 TABLET BY MOUTH [...] hyperglycemia, without long-term current use of insulin ([facility]) INJECT ONE PEN (=1.5MG) SUBCUTANEOUSLY [...] Encounters Date Type Department Care Team Description 10/08/2024 Refill [facility] [address] [place] [phone] Guero Burns, PharmD Tobacco dependence 10/04/2024 11:30 AM EDT Telemedicine [facility] [address] [place] [address] Guero Burns, PoloD Tobacco dependence (Primary Dx) 10/04/2024 Travel 10/03/2024 Patient Outreach [facility] [address] [place] [address] Pretty Molina MD Pre-visit Planning (Pre visit planning LVM ) 10/03/2024 Refill [facility] [address] [place] [address] Pretty Molina MD Other chronic pain 10/03/2024 Refill [facility] [address] [place] [address] Pretty Molina MD Type 2 diabetes mellitus with hyperglycemia, without long-term current use of insulin (CMS/HCC) 09/21/2024 Refill [facility] [address] [place] [phone] Pretty Molina MD Type 2 diabetes mellitus with hyperglycemia, without long-term current use of insulin (CMS/HCC) 09/17/2024 1:30 PM EDT Telemedicine [facility] [address] [place] [phone] Guero Burns PharmD Tobacco dependence (Primary Dx) 09/17/2024 Travel 09/16/2024 Refill [facility] [address] [place] [address] Pretty Molina MD Diabetes mellitus type 2 in nonobese (CMS/HCC); Primary hypertension; Seasonal allergies 09/13/2024 Patient Outreach [facility] [address] [place] [phone] Pretty Molina MD Care Coordination (NDOH f/u) 09/11/2024 Travel 09/03/2024 Refill [facility] [address] [place] [address] Pretty Molina MD Fibromyalgia 08/31/2024 Refill [facility] [address] [place] [address] Pretty Molina MD Other chronic pain 08/31/2024 Patient Outreach [facility] [address] [place] [address] Pretty Molina MD Care Coordination (SDOH) 08/24/2024 Population Health Risk Score [facility] ([facility] Department [address] [place] [address] [phone] Provider, Population Health Generic 08/19/2024 Refill [facility] [address] [place] [address] Pretty Molina MD [facility] 08/17/2024 Refill [facility] [address] [place] [address] Pretty Molina MD 08/16/2024 Patient Outreach [facility] [address] [place] [address] Pretty Molina MD Care Coordination (SDOH) 08/16/2024 Orders Only GENERIC EXTERNAL DATA DEPARTMENT Provider, Generic External Data 08/15/2024 Refill [facility] [address] [place] [address] Pretty Molina MD Essential hypertension 08/09/2024 Patient Outreach [facility] [address] [place] [address] Pretty Molina MD Care Coordination (SDOH f/u) 08/06/2024 Refill [facility] [address] [place] [address] Pretty Molina MD Other chronic pain 08/02/2024 Patient Outreach [facility] [address] [place] [address] Pretty Molina MD Care Coordination (SDOH) 08/02/2024 Patient Outreach [facility] [address] [place] [address] Pretty Molina MD Care Coordination (SDOH) 07/30/2024 Refill [facility] [address] [place] [address] Pretty Molina MD Type 2 diabetes mellitus with hyperglycemia, without long-term current use of insulin ([facility]) 07/27/2024 Patient Outreach [facility] [address] [place] [address] Pretty Molina MD Care Coordination ([facility]) 07/27/2024 Refill [facility] [address] [place] [address] Pretty Molina MD 07/20/2024 Orders Only GENERIC EXTERNAL DATA DEPARTMENT Provider, Generic External Data 07/19/2024 Refill [facility] [address] [place] [address] Pretty Molina MD 07/18/2024 Orders Only GENERIC EXTERNAL DATA DEPARTMENT Provider, Generic External Data 07/18/2024 Refill [facility] [address] [place] [address] Pretty Molina MD Dry eye syndrome of bilateral lacrimal glands from Last 3 Months Immunizations Name Administration [...] Description 10/10/2024 10:30 AM EDT Office Visit [facility] [address] [place] [address] [phone] Pretty Molina MD [address] [place], [place] [phone] 10/23/2024 1:30 PM EDT Telemedicine [address] [phone] Guero Burns, PoloD [address] [place] [address] [phone] 12/05/2024 2:00 PM EDT Clinical Support [address] [phone] Sandra Boyd, RN Health Maintenance Due Date Last Done Comments CT Colonography 1960 Colonoscopy 1961 Colorectal Cancer Screening 1960 FIT DNA/Cologuard 1961 FIT 1961 FOBT 1961 Sigmoidoscopy 1961 Diabetes: Foot Exam 1971 Eye Exam 1971 Alcohol/Substance Use Screening 1973 Pneumococcal Vaccine: 50+ Years (1 of 2 - PCV) 1980 Lung Cancer Screening 2011 COVID-19 Vaccine ( season) 2024 10/30/2020, 10/02/2020 Diabetes: Hemoglobin A1C 10/04/20242 024, 01/06/2024, 05/30/2023, Additional history exists SDOH Screening 12/27/2024 12/28/2023 Depression Screening 01/05/2025 01/06/2024, 01/06/20 24 Mammogram 07/25/2025 07/25/2024, 100 09/2022, 03/10/2022, Additional history exists Lipid Panel 08/16/2025 08/16/2024, 07, 10/11/2022, Additional history exists Tobacco Screening 09/14/2025 [...] hyperglycemia, without long-term current use of insulin ([facility]) HPV MRNA E6/E7 REFLEX TO HPV 16, [...] 1 AM EST 08/16/2024 1:11 PM EST [facility] - 08/17/2024 4:59 PM EST ----- ------- Name: Violet Pascal ? Age/Sex: 64/F ? : 1960 Unit#: [id number] ?? Attend Dr: Ramesh Gurrola MD ?Re08/16/24 ?Status: [facility] ? Location: HO.SSS ?Disch: ? ----- ------- SPEC : [id number] ? RECD: 08/16/24 ? STATUS: ??SOUT ? REQ NUM: [id number] ? YASMINE: 08/16/24 ? SUBM DR: Ramesh [...] microscopic examination, multiple pieces in cassette A. ??([facility]) Copies To: ?? Pretty Molina MD ?? [facility] ?? [address] ?? [place] [address] ?? [phone] ?? Ramesh Gurrola MD ?? [facility] ?? [address] ?? [place] ?? [phone] ? CONTINUED ON NEXT PAGE ----- ------- Name: Violet Pascal ? Age/Sex: 64/F ? : 1960 Unit#: [id number] ?? Attend Dr: Ramesh Gurrola MD ?Re08/16/24 ?Status: DEP SDC ? Location: HO.SSS ?Disch: ? ----- ------- SPEC : [id number] ? RECD: 08/16/24 ? STATUS: ??SOUT ? REQ NUM: [id number] ? YASMINE: 08/16/24-1 ? SUBM DR: Ramesh Gurrola MD ? ENTERED: ??08/16/24 ?SP TYPE: Surgical ? OTHR : Pretty Molina MD ? ORDERED: ??TRACEY Stain/2, Gross Micro L4 ? ----- ------- Signed (signature on file) Wally Harding MD 08/17/24 3239 ? ----- ------- ? END OF REPORT ? us Generic External Data Provider LAB BLOOD ORDERAB LES Final Result Performing Organization Address [facility] Co de Phone Number [facility] [address] [place] [phone] * (ABNORMAL) Glucose, Whole Blood (08/16/2024 10:29 AM EST) Glucose, Whole Blood 150(H) 60 - 115 mg/dL [facility] Comment:METER #: [id number] 08/16/2024 10:2 9 AM EST 08/16/2024 10:33 AM EST Generic External Data Provider LAB BLOOD ORDERAB LES Final Result Performing Organization Address [facility] de Phone Number [facility] [address] [place] [phone] * Lipid Panel, Standard (08/16/2024 9:01 AM EST) Triglycerides 106 <150 mg/dL [facility] Comment:Desirable Triglyceri de: less than 150 mg/dLBorderline High Triglyceride 150-199 mg/dLHigh Triglyceride: 200-499 mg/dLVery High Triglyceride: greater than or equal to 5OO mg/dL Cholesterol 148 <200 mg/dL [facility] Comment:Desirable Cholestero l: less than 200 mg/dLBorderline High Cholesterol: 200-239 mg/dLHigh Cholesterol: greater than 239 mg/dL LDL Cholesterol Calculated 81 <100 mg/dL [facility] Comment:Desirable LDL: less than 100 mg/dLNear Optimal/Above Optimal LDL: 110- 129 mg/dLBorderline High LDL: 130-159 mg/dLHigh LDL: 160-189 mg/dLVery High LDL: greater than or equal to 190 mg/dL HDL Cholesterol 46 >40 mg/dL [facility] Comment:Desirable HDL: great er than 40 mg/dL Note: This HDL assay may give artificially low results in patients with liver disease. 08/16/2024 9:01 AM EST 08/16/2024 9:01 AM EST us Generic External Data Provider LAB BLOOD ORDERAB LES Final Result [facility] [address] [facility] [place] [address] [phone] * BI Mammogram Screening Tomosynthesis Bilateral (07/25/2024 2:30 PM EST) Anatomical Region Laterality Modality Breast Bilateral Mammography 07/25/2024 2:30 PM EST Narrative 08/03/2024 4:35 PM EST ? [facility] ? [address] ?[place] [address] ? Mammography Report ? Signed ? Patient: Pascal,Fredevinda ?MR#: [id number] ?? [id number] ? : 1960 ?Acct:[id number] ? Age/Sex: 64 / F ?ADM Date: 07/25/24 ? Loc: HO.MAMMO ? Attending Dr: Pretty Zayas MD ? Ordering Physician: Pretty Molina MD ?Results: ?? 2Benign Findings ? Date of Service: 07/25/24 ?Follow Up: 1 Year From Orig ?? inal Mammogram ? Procedure(s): MM tomosynthesis screening BI ?? Accession Number(s): [id number] ? cc: Pretty Molina MD ? EXAMINATION: [...] ? Signed By: ?<Electronically signed by Darlin Garcia DO in OV> ? 08/03/24 1632 ? DD/ 1430 ? TD/TT: 07/25/24 1446 ? Gang Pusher: ? Procedure Note Karolyn, Image - 08/03/2024 [facility] [address] [place] [address] Dr. [place], [place] [address] Mammography Report Signed Patient: Abraham Pascal#: [id number] : 1960cct:[id number] Age/Sex: 64 / FADM Date: 07/25/24 Loc: HO.MAMMO Attending Dr: Pretty Zayas MD Ordering Physician: Pretty Molina MDResults: 2Benign Findings Date of Service: 07/25/24Follow Up: 1 Year From Orig ina Mammogram Procedure(s): MM tomosynthesis screening BI Accession Number(s): [id number] cc: Pretty Molina MD EXAMINATION: MM SCREENING [...] 08/03/24 1632 DD/ 1430 TD/TT: 07/25/24 1446 Gang Pusher: us Pretty Zayas MD IMG BI PROCEDURES Fin al Result * US Pelvis Transvaginal (07/21/2024 9:20 AM EST) Anatomical Region Laterality Modality Pelvis Ultrasound 07/21/2024 9:20 AM EST Narrative 07/21/2024 9:21 AM EST ? [facility] ?[address] ?[place] [address] ? Ultrasound Report ? Signed ? Patient: Pascal,Fredevinda ?MR#: [id number] ?? [id number] ? : 1960 ?Acct:[id number] ? Age/Sex: 64 / F ?ADM Date: 07/20/24 ? Loc: HO.US ? Attending Dr: Ramesh Gurrola MD ? Ordering Physician: Ramesh Gurrola MD ?? Date of Service: 07/20/24 ?? Procedure(s): US pelvic and transvaginal ?? Accession Number(s): [id number] ? cc: Pretty Molina MD; Ramesh Gurrola [...] ? DD/ 9 ? TD/TT: 07/21/24919 ? Gang Pusher: ? Procedure Note Gila Parr - 07/21/[address] [address] Ultrasound Report Signed Patient: Abraham Pascal#: [id number] : 1960cct:[id number] Age/Sex: 64 / FADM Date: 07/20/24 Loc: HO.US Attending Dr: Ramesh Gurrola MD Ordering Physician: Ramesh Gurrola MD Date of Service: 07/20/24 Procedure(s): US pelvic and transvaginal Accession Number(s): [id number] cc: Pretty Molina MD; Ramesh Gurrola MD [...] in OV> 07/21/24919 DD/ 9 TD/TT: 07/21/24919 Gang Pusher: us [facility] External Provider IMG US PROCEDURES Edited Result - Final * (ABNORMAL) Basic Metabolic Panel (07/20/2024 12:01 PM EST) Sodium 137 135 - 145 mmol/L [facility] Potassium 4.2 3.3 - 5.1 mmol/L [facility] Chloride 103 96 - 108 mmol/L [facility] Carbon Dioxide 24 22 - 29 mmol/L [facility] Anion Gap 14 12 - 20 [facility] Urea Nitrogen (BUN) 18(H) 9 - 16 mg/dL [facility] Creatinine, Serum 0.75 0.5 - 1.4 mg/dL [facility] Estimated Glomerular Filt Rate >60 [facility] Comment:Chronic Kidney Disea se: Estimated GFR < 60 mL/min/1.66c9Fwqtbq Kidney Disease: Estimated GFR < 15 mL/min/1.73m2 Glucose 156(H) 60 - 115 mg/dL [facility] Calcium 9.4 8.4 - 10.2 mg/dL [facility] 07/20/2024 12:0 1 PM EST 07/20/2024 12:01 PM EST us Generic External Data Provider LAB BLOOD ORDERAB LES Final Result [facility] [address] [place] [phone] [phone] * (ABNORMAL) POCT HGB A1C (04/05/2024 3:05 PM EDT) Hemoglobin A1C 6.9(A) 4.0 - 6.0 % QC Media Lot # [id number] Lot# Expiration Date ,557,[id number] Blood 04/05/2024 3:05 PM EDT us Pretty Zayas MD POINT OF CARE TEST EN TER/EDIT ORDERABLES Final Result * HPV mRNA E6/E7 w/Reflex to HPV Genotypes 16, 18/45 (04/18/2023 2:08 PM EST) HPV nRNA E6/E7 Not Detected Not Detected [facility] Comment:Methodology: Transcr iption-Mediated AmplificationThis assay detects E6/E7 viral messenger RNA (mRNA) from 14high-risk HPV types (16,18,31,33,35,39,45,51,52,56,58,59,66,68).Cervical sources are required for HPV testing.If a vaginal source from a patient who has had atotal hysterectomy with removal of cervix wassubmitted, please contact the testing laboratoryfor alternative testing options.For additional information, please refer tohttp://education.[employer]/faq/YEF021v2(This link if provided for information/educational purposes only.)THIS TEST WAS PERFORMED AT:[facility] [place] [phone] ANNE MD HPV mRNA E6/E7 TNP [facility] HPV 16 RNA TNP [facility] HPV 18/45 RNA [facility] 04/18/2023 2:08 PM EST 04/19/2023 8:20 AM EST us Cristian REYES LAB CYTOLOGY ORDERABLES F inal Result [facility] [address] [place] [phone] * Pap Smear (04/18/2023 2:08 PM EST) 04/18/2023 2:08 PM EST 04/19/2023 8:20 AM EST Narrative [facility] - 04/26/2023 1:40 PM EST ----- ------- Name: Violet Pascal ? Age/Sex: 63/F ? : 1960 Unit#: [id number] ?? Attend Dr: CRISTIAN BRIONES CNM ?Re04/18/23 ?Status: DEP REF ? Location: HO.HHCLNP ? Disch: ? ----- ------- SPEC : [id number] ?RECD: 04/19/23 ? STATUS: ??SOUT ? REQ NUM: [id number] ? YASMINE: 04/18/23 ? SUBM DR: CRISTIAN [...] 66, 68) ?? HPV testing performed by [employer], [place], [place]. ??See reference laboratory ?? pion of the EMR for entire report. ?Clinical Information LMP: Postmenopausal Previous PAP test: Unknown date/findings ? Material Received ?? ThinPrep-Cervical ----- ------- Signed (signature on file) MARIOLA Walker ([facility]) 04/26/23 1340 ? ----- ------- ? END OF REPORT ? us Cristian Briones [facility] CYTOLOGY ORDERABLES F inal Result [facility] [address] [place] [phone] * Hepatitis C Antibody (02/03/2021 12:01 PM EDT) [facility] Hepatitis C Antibody Nonreactive Nonreactive [facility] Comment: Antibodies to HCV not detected; does not exclude early acute HCV infection. HIV AB/AG Nonreactive Nonreactive [facility] Comment: HIV-1 p24 Ag and/or [...] detection of this assay. ?? The [employer] Refresh Technician HIV Ag/Ab Combo assay result and supplemental assay results should be interpreted in conjunction with the patient's clinical presentation, history and other laboratory results. ??If the results are inconsistent with clinical evidence, additional testing is suggested to confirm the result. Hepatitis B Surface Antigen Negative Negative [facility] 02/03/2021 12:0 1 PM EDT us Ramesh Gurrola MD HISTORICAL/NON ORDERABLE LABS Fi nal Result [facility] [address] [place] [phone], from Last 3 Months or Most Recently Relevant to Health Maintenance Insurance [employer] C3 Care Teams Advertising Solicitor Relationship Specialty Start Date End Date Pretty Molina MD [address] [place] [address] PCP - General Family Medicine 12/24/20 Guero Burns, Mario [address] [place] [address] Pharmacist Internal Medicine 09/20/24
--- OUTSIDE RECORDS SUMMARY | 2024-10-08 17:07 | XMS_ITS | Encounter Summary ---
Author Organization [employer] Address [address] [facility] 7t [place] [address] Care Team Providers Care High School Business Teacher Name Role Phone Pretty Molina MD Primary Care Provide r Guero Burns PharmD Unavailable [phone] Encounter Details Date Type Department Care Team (Latest Contact Info) Description 04/21/2020 Abstract [facility] CONVERSIONS Dental, Provider, DDS Social [...] Description 10/10/2024 10:30 AM EDT Office Visit [facility] [address] [place] [phone] Pretty Molina MD [address] [place] [address] 10/23/2024 1:30 PM EDT Telemedicine [address] [phone] Guero Burns, PharmD [address] [place] [address] 12/05/2024 2:00 PM EDT Clinical Support [address] [address] Sandra Boyd, RN documented as of this encounter Visit Diagnoses Not on filedocumented in this encounter Care Teams High School Business Teacher Relationship Specialty Start Date End Date Pretty Molina MD [address] [place] [address] PCP - General Family Medicine 12/24/20 Guero Burns, PoloD [address] [place] [address] Pharmacist Internal Medicine 09/20/24 documented as of this encounter
--- OUTSIDE RECORDS SUMMARY | 2024-10-08 17:07 | XMS_ITS | Encounter Summary ---
Author Organization [employer] Address 75 [facility] 7t [place] [address] Care Team Providers Care Qualifications Examiner Name Role Phone Pretty Molina MD Primary Care Provide r Guero Burns PharmD Unavailable [phone] Reason for Visit * Reason Onset Date Comments Med Refill 06/10/2022 Encounter Details Date Type Department Care Team (Late st Contact Info) Description 06/10/2022 Refill [facility] MEDICINE [address] [place] [address] Pretty Molina MD 230 [place] [address] Social History Tobacco Use Types Packs/Day Years [...] Description 10/10/2024 10:30 AM EDT Office Visit [address] [address] Pretty Molina MD [address] [place] [address] 10/23/2024 1:30 PM EDT Telemedicine [address] [address] Guero Burns, Mario [address] [place] [address] 12/05/2024 2:00 PM EDT Clinical Support [address] [address] Sandra Boyd, TONY documented as of this encounter Visit Diagnoses Not on filedocumented in this encounter Care Teams Qualifications Examiner Relationship Specialty Start Date End Date Pretty Molina MD [address] [place] [phone] PCP - General Family Medicine 12/24/20 Guero Burns, Mario [address] [place] [address] [phone] Pharmacist Internal Medicine 09/20/24 documented as of this encounter
--- OUTSIDE RECORDS SUMMARY | 2024-10-08 17:07 | XMS_ITS | Encounter Summary ---
Author Organization [employer] Address 75 [facility] 7t [place] [address] Care Team Providers Care Tile Molder Hand Name Role Phone Pretty Molina MD Primary Care Provide r Guero Burns PharmD Unavailable [phone] Reason for Visit * Reason Comments Med Refill Encounter Details Date Type Department Care Team (Late st Contact Info) Description 07/01/2024 Refill [facility] MEDICINE [address] [place] [address] Keysha Nagel, YOLETTE [address] [place] [address] Social History Tobacco Use Types Packs/Day Years [...] Description 10/10/2024 10:30 AM EDT Office Visit [address] [address] Pretty Molina MD [address] [place] [address] 10/23/2024 1:30 PM EDT Telemedicine [address] [address] Guero Burns, PharmD [address] [place] [address] 12/05/2024 2:00 PM EDT Clinical Support [address] [address] Sandra Boyd RN documented as of this encounter Visit Diagnoses Not on filedocumented in this encounter Additional Health Concerns Assessment Noted Time PHQ-9 Depression Total Score: 4 01/06/20 24 2:22 PM EDT documented as of this encounter Care Teams Tile Molder Hand Relationship Specialty Start Date End Date Pretty Molina MD [address] [place] [address] PCP - General Family Medicine 12/24/20 Guero Burns, PoloD [address] [place] [address] Pharmacist Internal Medicine 09/20/24 documented as of this encounter
--- OUTSIDE RECORDS SUMMARY | 2024-10-08 17:07 | XMS_ITS | Encounter Summary ---
Author Organization [employer] Address 75 [facility] 7t [place] [address] Care Team Providers Care Sculpture Instructor Name Role Phone Pretty Molina MD Primary Care Provide r Guero Burns PharmD Unavailable [phone] Reason for Visit * Reason Comments Med Refill Encounter Details Date Type Department Care Team (Late st Contact Info) Description 03/30/2023 Refill [facility] MEDICINE 230 [place] [address] Pretty Molina MD 230 [place] [address] Other chronic pain Social History Tobacco Use [...] Description 10/10/2024 10:30 AM EDT Office Visit [address] [address] Pretty Molina MD [address] [place] [address] 10/23/2024 1:30 PM EDT Telemedicine [address] [address] Guero Burns PharmD [address] [place] [address] 12/05/2024 2:00 PM EDT Clinical Support [address] [address] Sandra Boyd RN documented as of this encounter Visit Diagnoses Diagnosis Other chronic pain documented in this encounter Additional Health Concerns Assessment Noted Time PHQ-9 Depression Total Score: 12 023 3:08 PM EDT documented as of this encounter Care Teams Sculpture Instructor Relationship Specialty Start Date End Date Pretty Molina MD [address] [place] [address] PCP - General Family Medicine 12/24/20 Guero Burns, PharmD [address] [place] [address] Pharmacist Internal Medicine 09/20/24 documented as of this encounter
--- OUTSIDE RECORDS SUMMARY | 2024-10-08 17:07 | XMS_ITS | Encounter Summary ---
Author Organization [employer] Address 75 [facility] 7t [place] [address] Care Team Providers Care Scientific Artist Name Role Phone Pretty Molina MD Primary Care Provide r Guero Burns PharmD Unavailable [phone] Reason for Visit * Reason Comments Med Refill Encounter Details Date Type Department Care Team (Late st Contact Info) Description 05/10/2023 Refill [facility] MEDICINE 230 [place] [address] Pretty Molina MD 230 [place], [place] [phone] Other chronic pain Social History Tobacco Use [...] Description 10/10/2024 10:30 AM EDT Office Visit [address] [address] Pretty Molina MD [address] [place] [address] 10/23/2024 1:30 PM EDT Telemedicine [address] [address] Guero Burns PharmD [address] [place] [address] 12/05/2024 2:00 PM EDT Clinical Support [address] [address] Sandra Boyd RN documented as of this encounter Visit Diagnoses Diagnosis Other chronic pain documented in this encounter Additional Health Concerns Assessment Noted Time PHQ-9 Depression Total Score: 12 023 3:08 PM EDT documented as of this encounter Care Teams Scientific Artist Relationship Specialty Start Date End Date Pretty Molina MD [address] [place] [address] PCP - General Family Medicine 12/24/20 Guero Burns, PharmD [address] [place] [address] Pharmacist Internal Medicine 09/20/24 documented as of this encounter
--- OUTSIDE RECORDS SUMMARY | 2024-10-08 17:07 | XMS_ITS | Encounter Summary ---
Author Organization [employer] Address 75 [facility] 7t [place] [address] Care Team Providers Care Agency Service Representative Name Role Phone Pretty Molina MD Primary Care Provide r uGero Burns PharmD Unavailable [phone] Reason for Visit * Reason Comments Med Refill Encounter Details Date Type Department Care Team ([facility] st Contact Info) Description 06/06/2024 Refill [facility] CHC MED & PEDS [address] [place] [address] Pretty Molina MD 230 [place] [address] Type 2 diabetes mellitus with hyperglycemia, without long-term current use of insulin ([facility]) Social History Tobacco Use Types Packs/Day Years [...] Description 10/10/2024 10:30 AM EDT Office Visit [facility] MEDICINE [address] [place] [address] Pretty Molina MD [address] [place] [address] 10/23/2024 1:30 PM EDT Telemedicine [address] [address] Guero Burns, PharmD [address] [place] [address] 12/05/2024 2:00 PM EDT Clinical Support [facility] MEDICINE [address] [place] [address] Sandra Boyd, TONY documented as of this encounter Visit Diagnoses Diagnosis Type 2 diabetes mellitus with hyperglycemia, without long-term current use of insulin ([facility]) documented in this encounter Additional Health Concerns Assessment Noted Time PHQ-9 Depression Total Score: 4 01/06/20 24 2:22 PM EDT documented as of this encounter Care Teams Agency Service Representative Relationship Specialty Start Date End Date Pretty Molina MD 230 [place], [place] [phone] PCP - General Family Medicine 12/24/20 Guero Burns, PoloD 230 [place] [address] Pharmacist Internal Medicine 09/20/24 documented as of this encounter
--- OUTSIDE RECORDS SUMMARY | 2024-10-08 17:07 | XMS_ITS | Encounter Summary ---
Author Organization [employer] Address 75 [facility] 7t [place] [address] Care Team Providers Care Payroll Director Name Role Phone Pretty Molina MD Primary Care Provide r Guero Bursn PharmD Unavailable [phone] Reason for Visit * Reason Onset Date Comments Med Refill 10/03/2024 Encounter Details Date Type Department Care Team (Late st Contact Info) Description 10/03/2024 Refill [facility] CHC MED & PEDS [address] [place] [address] Pretty Molina MD 230 [place] [address] Type 2 diabetes mellitus with hyperglycemia, without long-term current use of insulin ([facility]) Social History Tobacco Use Types Packs/Day [...] Description 10/10/2024 10:30 AM EDT Office Visit [facility] MEDICINE [address] [place] [address] Pretty Molina MD 230 [place] [address] 10/23/2024 1:30 PM EDT Telemedicine [facility] MEDICINE [address] [place] [address] Guero Burns, PharmD [address] [place] [address] 12/05/2024 2:00 PM EDT Clinical Support [facility] MEDICINE 230 [place] [address] Sandra Boyd RN documented as of this encounter Visit Diagnoses Diagnosis Type 2 diabetes mellitus with hyperglycemia, without long-term current use of insulin ([facility]) documented in this encounter Additional Health Concerns Assessment Noted Time PHQ-9 Depression Total Score: 4 01/06/20 24 2:22 PM EDT documented as of this encounter Care Teams Payroll Director Relationship Specialty Start Date End Date Pretty Molina MD [address] [place] [address] PCP - General Family Medicine 12/24/20 Guero Burns, PoloD [address] [place] [address] Pharmacist Internal Medicine 09/20/24 documented as of this encounter
--- OUTSIDE RECORDS SUMMARY | 2024-10-08 17:07 | XMS_ITS | Encounter Summary ---
Author Organization [employer] Address 75 [facility] 7t [place] [address] Care Team Providers Care Parts Counterperson Name Role Phone Pretty Molina MD Primary Care Provide r Guero Burns PharmD Unavailable [phone] Reason for Visit * Reason Comments Med Refill Encounter Details Date Type Department Care Team ([facility] st Contact Info) Description 03/23/2023 Refill [facility] CHC MED & PEDS [address] [place] [address] Pretty Molina MD 230 [place] [address] Neuropathy Social History Tobacco Use Types Packs/Day [...] Description 10/10/2024 10:30 AM EDT Office Visit [address] [address] Pretty Molina MD [address] [place] [address] 10/23/2024 1:30 PM EDT Telemedicine [address] [address] Guero Burns PharmD [address] [place] [address] 12/05/2024 2:00 PM EDT Clinical Support [address] [address] Sandra Boyd RN documented as of this encounter Visit Diagnoses Diagnosis Neuropathy Mononeuritis of unspecified site documented in this encounter Additional Health Concerns Assessment Noted Time PHQ-9 Depression Total Score: 12 023 3:08 PM EDT documented as of this encounter Care Teams Parts Counterperson Relationship Specialty Start Date End Date Pretty Molina MD [address] [place] [address] PCP - General Family Medicine 12/24/20 Guero Burns, PharmD [address] [place] [address] Pharmacist Internal Medicine 09/20/24 documented as of this encounter
--- OUTSIDE RECORDS SUMMARY | 2024-10-08 17:07 | XMS_ITS | Encounter Summary ---
Author Organization [employer] Address 75 [facility] 7t [place] [address] Care Team Providers Care Loss Control Representative Name Role Phone Pretty Molina MD Primary Care Provide r Guero Burns PharmD Unavailable [phone] Encounter Details Date Type Department Care Team (Latest Contact Info) Description 05/31/2019 Abstract [facility] CONVERSIONS Dental, Provider, DDS [...] Description 10/10/2024 10:30 AM EDT Office Visit [facility] MEDICINE [address] [place] [address] Pretty Molina MD 230 [place] [address] 10/23/2024 1:30 PM EDT Telemedicine [address] [phone] Guero Burns, PharmD 230 [place] [address] 12/05/2024 2:00 PM EDT Clinical Support [address] [address] Sandra Boyd, RN documented as of this encounter Visit Diagnoses Not on filedocumented in this encounter Care Teams Loss Control Representative Relationship Specialty Start Date End Date Pretty Molina MD [address] [place] [address] PCP - General Family Medicine 12/24/20 Guero Burns, PoloD [address] [place] [address] Pharmacist Internal Medicine 09/20/24 documented as of this encounter
--- OUTSIDE RECORDS SUMMARY | 2024-10-08 17:07 | XMS_ITS | Encounter Summary ---
Author Organization [employer] Address 75 [facility] 7t [place] [address] Care Team Providers Care Testing Specialist Name Role Phone Pretty Molina MD Primary Care Provide r Guero Burns PharmD Unavailable [phone] Reason for Visit * Reason Onset Date Comments Med Refill 10/03/2024 Encounter Details Date Type Department Care Team (Late st Contact Info) Description 10/03/2024 Refill [facility] CHC MED & PEDS [address] [place] [address] Pretty Molina MD 230 [place] [address] Other chronic pain Social History Tobacco Use [...] Description 10/10/2024 10:30 AM EDT Office Visit [facility] MEDICINE 230 [place] [address] Pretty Molina MD 230 [place] [address] 10/23/2024 1:30 PM EDT Telemedicine [address] [address] Guero Burns, PharmD [address] [place] [address] 12/05/2024 2:00 PM EDT Clinical Support [address] [address] Sandra Boyd, TONY documented as of this encounter Visit Diagnoses Diagnosis Other chronic pain documented in this encounter Additional Health Concerns Assessment Noted Time PHQ-9 Depression Total Score: 4 01/06/20 24 2:22 PM EDT documented as of this encounter Care Teams Testing Specialist Relationship Specialty Start Date End Date Pretty Molina MD [address] [place] [address] PCP - General Family Medicine 12/24/20 Guero Burns, PharmD [address] [place] [address] Pharmacist Internal Medicine 09/20/24 documented as of this encounter
--- OUTSIDE RECORDS SUMMARY | 2024-10-08 17:07 | XMS_ITS | Encounter Summary ---
Author Organization [employer] Address 75 [facility] 7t [place] [address] Care Team Providers Care Spanish Lecturer Name Role Phone Pretty Molina MD Primary Care Provide r Guero Burns PharmD Unavailable Encounter Details Date Type Department Care Team (Latest Contact Info) Description 2019 Abstract [facility] [place] [facility] CONVERSIONS Dental, Provider, DDS Social [...] Description 10/10/2024 10:30 AM EDT Office Visit [facility] [place] [facility] MEDICINE [address] [place] [address] Pretty Molina MD 230 [place] [address] 10/23/2024 1:30 PM EDT Telemedicine [address] [phone] Guero Burns, PharmD 230 [place] [address] 12/05/2024 2:00 PM EDT Clinical Support [address] [address] Sandra Boyd, RN documented as of this encounter Visit Diagnoses Not on filedocumented in this encounter Care Teams Spanish Lecturer Relationship Specialty Start Date End Date Pretty Molina MD 230 [place] [address] PCP - General Family Medicine 12/24/20 Guero Burns, PoloD 230 [place] [address] Pharmacist Internal Medicine 09/20/24 documented as of this encounter
--- OUTSIDE RECORDS SUMMARY | 2024-10-08 17:07 | XMS_ITS | Encounter Summary ---
Author Organization [employer] Address 75 [facility] 7t [place] [address] Care Team Providers Care Plc Engineer Name Role Phone Pretty Molina MD Primary Care Provide r Guero Burns PharmD Unavailable [phone] Encounter Details Date Type Department Care Team (Late st Contact Info) Description 07/01/2022 Orders Only [facility] MEDICINE [address] [place] [address] [phone] Marti Cedillo RN Chronically on opiate therapy [...] Description 10/10/2024 10:30 AM EDT Office Visit [facility] MEDICINE [address] [place] [address] Pretty Molina MD 230 [place], [place] [phone] 10/23/2024 1:30 PM EDT Telemedicine [facility] MEDICINE [address] [place] [address] Guero Burns, PharmD 230 [place], [place] [phone] 12/05/2024 2:00 PM EDT Clinical Support [facility] MEDICINE [address] [place] [address] Sandra Boyd RN documented as of this encounter Visit Diagnoses Diagnosis Chronically on opiate therapy- Primary documented in this encounter Care Teams Plc Engineer Relationship Specialty Start Date End Date Pretty Molina MD 230 [place] [address] PCP - General Family Medicine 12/24/20 Guero Burns, PoloD [address] [place] [address] Pharmacist Internal Medicine 09/20/24 documented as of this encounter
--- OUTSIDE RECORDS SUMMARY | 2024-10-08 17:07 | XMS_ITS | Encounter Summary ---
Author Organization [employer] Address 75 [facility] 7t [place] [address] Care Team Providers Care Eyewear Manufacturing Tech Name Role Phone Pretty Molina MD Primary Care Provide r Guero Burns PharmD Unavailable [phone] Reason for Visit * Reason Comments Med Refill Encounter Details Date Type Department Care Team ([facility] st Contact Info) Description 05/12/2023 Refill [facility] CHC MED & PEDS [address] [place] [address] Pretty Molina MD 230 [place] [address] Neuropathy Social History Tobacco Use Types Packs/Day [...] Description 10/10/2024 10:30 AM EDT Office Visit [address] [address] Pretty Molina MD [address] [place] [address] 10/23/2024 1:30 PM EDT Telemedicine [address] [address] Guero Burns PharmD [address] [place] [address] 12/05/2024 2:00 PM EDT Clinical Support [address] [address] Sandra Boyd RN documented as of this encounter Visit Diagnoses Diagnosis Neuropathy Mononeuritis of unspecified site documented in this encounter Additional Health Concerns Assessment Noted Time PHQ-9 Depression Total Score: 12 023 3:08 PM EDT documented as of this encounter Care Teams Eyewear Manufacturing Tech Relationship Specialty Start Date End Date Pretty Molina MD [address] [place] [address] PCP - General Family Medicine 12/24/20 Guero Burns, PharmD [address] [place] [address] Pharmacist Internal Medicine 09/20/24 documented as of this encounter
--- OUTSIDE RECORDS SUMMARY | 2024-10-08 17:08 | XMS_ITS | Encounter Summary ---
Author Organization [employer] Address 75 [facility] 7t [place] [address] Care Team Providers Care Regional Dedicated Truck Driver Name Role Phone Pretty Molina MD Primary Care Provide r Guero Burns PharmD Unavailable [phone] Reason for Visit * Consultation (Routine) - Authorized Specialty Diagnoses / Procedures Referred By Contac t Referred To Contact Pharmacy Diagnoses Tobacco dependence Pretty Molina MD [address] [place] [address] Phone: tel: fax: Referral ID Status Reason Start Date Expiration Date Visits Requested Visits Authorized [id number] Authorized Consult and Treat 06/11/2024 06/11/2025 6 6 Encounter Details Date Type Department Care Team ([facility] st Contact Info) Description 10/04/2024 11:30 AM EDT Telemedicine [facility] MEDICINE [address] [place] [address] Guero Burns, PharmD [address] [place], [place] [phone] Tobacco dependence (Primary Dx) Social History Tobacco [...] Progress Notes * Guero Burns PharmD - 10/04/2024 11:30 AM EDT Pharmacy Consult Visit Type: CDTM Pharmacist: Guero Burns PharmD Referring Provider: [facility] Referral Dx: F17.200 (ICD-10-CM) - Tobacco dependence Date Referred: 06/11/2024 Visit #: 3 Violet Pascal is a 64 y.o. year old patient here for follow-up visit completed over the phone. Subjective History: General / Intake (updated 10/04/2024) Allergies: is allergic to morphine. Read/Write: Yes, in Indonesian (somewhat) Recent Hospitalizations: No Social History as reported by patient: Tobacco: Current See smoking cessation Alcohol: Denies (quit 14 years ago) Caffeine: Current, 1/2 cup of coffee 2-3 times daily Illicit drugs: Denies Exercise: not at all Adherence / patient self-management Uses medboxes from [facility] pharmacy Has assistance from [facility] with managing medications Reports satisfaction with medboxes Denies missed doses or removing medication OTC medication, vitamin, supplement use: denies Smoking cessation Past Medical History: Negative for: seizure disorder, chest pain, eating disorder, suicidal ideation, neuropsychiatric disorder. Positive for depression Smoking History 09/11/2024 Reported smoking 1/3 ppd for 35 years. (Previously [...] quit previously Patches: Skin Allergy (rash/skin irritation) - tolerating well in 2024 Gum: stomach ache and nausea Chantix: 2020, [...] Patient set a quit date for 09/12/2024 (Started NRT 09/12/2024) Nicotine consumption as of today (10/04/2024) Reports still smoking 2-3 cigarettes daily (1/2 of original daily consumption) Cigarette with coffee is hardest to eliminate, has reduced coffee intake to once or twice daily. Places patch in the AM takes off before bed. Denies rash or AMANDA. Reports use of Nicotine lozenges 4 time daily, up from twice daily. Objective History: Treatment history/considerations: PMH: [...] will offer at next visit. Preferred Pharmacy: [facility] - [place], [place] - 230 [facility] 230 [facility] [phone] Assessment/Plan: Smoking Cessation (Stage: Action) Pharmacotherapy: Nicotine 14 mg patch, apply 1 patch daily as directed x6 wks (starting dose) Nicotine 4 mg gum/lozenge use 1 as directed every 1-2 hours PRN cravings (combo therapy) Goals of therapy per the [facility] Treating Tobacco Use and Dependence Clinical Practice [...] help prevent cigarette cravings. Patient encouraged to continue to FU with counselor as scheduled to assist with stress management techniques. Pharmacist previously recommended LDCT Lung cancer screening. Request sent to [place] 09/11/2024. Patient to follow up in CDTM [...] Description 10/10/2024 10:30 AM EDT Office Visit [facility] MEDICINE [address] [place] [address] Pretty Molina MD [address] [place] [address] 10/23/2024 1:30 PM EDT Telemedicine [address] [address] Guero Burns, PharmD [address] [place] [address] 12/05/2024 2:00 PM EDT Clinical Support [address] [address] Sandra Boyd, TONY documented as of this encounter Visit Diagnoses Diagnosis Tobacco dependence- Primary Tobacco use disorder documented in this encounter Additional Health Concerns Assessment Noted Time PHQ-9 Depression Total Score: 4 01/06/20 24 2:22 PM EDT documented as of this encounter Care Teams Regional Dedicated Truck Driver Relationship Specialty Start Date End Date Pretty Molina MD [address] [place] [address] PCP - General Family Medicine 12/24/20 Guero Burns, PharmD [address] [place] [address] [phone] Pharmacist Internal Medicine 09/20/24 documented as of this encounter
--- OUTSIDE RECORDS SUMMARY | 2024-10-08 17:08 | XMS_ITS | Encounter Summary ---
Author Organization [employer] Address 75 [facility] 7t [place] [address] Care Team Providers Care Target Setter Name Role Phone Pretty Molina MD Primary Care Provide r Guero Burns PharmD Unavailable [phone] Encounter Details Date Type Department Care Team (Latest Contact Info) Description 10/04/2024 Travel Social History Tobacco Use Types Packs/Day [...] Description 10/10/2024 10:30 AM EDT Office Visit [address] [address] Pretty Molina MD [address] [place] [address] 10/23/2024 1:30 PM EDT Telemedicine [address] [address] Guero Burns PharmD [address] [place] [address] 12/05/2024 2:00 PM EDT Clinical Support [address] [address] Sandra Boyd, TONY documented as of this encounter Visit Diagnoses Not on filedocumented in this encounter Additional Health Concerns Assessment Noted Time PHQ-9 Depression Total Score: 4 01/06/20 24 2:22 PM EDT documented as of this encounter Care Teams Target Setter Relationship Specialty Start Date End Date Pretty Molina MD [address] [place] [address] PCP - General Family Medicine 12/24/20 Guero Burns, PoloD [address] [place] [address] Pharmacist Internal Medicine 09/20/24 documented as of this encounter
--- OUTSIDE RECORDS SUMMARY | 2024-10-08 17:08 | XMS_ITS | Encounter Summary ---
Author Organization [employer] Address 75 [facility] 7t [place] [address] Care Team Providers Care Nursing Center Tutor Name Role Phone Pretty Molina MD Primary Care Provide r Guero Burns PharmD Unavailable Encounter Details Date Type Department Care Team (Late st Contact Info) Description 11/12/2022 Orders Only [facility] CHC MED & PEDS [address] [place], [place] [phone] Jocelyn Fleming LPN Social History Tobacco Use [...] Description 10/10/2024 10:30 AM EDT Office Visit [facility] MEDICINE [address] [place], [place] [phone] Pretty Molina MD 230 [place], [place] [phone] 10/23/2024 1:30 PM EDT Telemedicine [facility] MEDICINE [address] [place], [place] [phone] Guero Burns, PharmD 230 [place] [address] 12/05/2024 2:00 PM EDT Clinical Support [facility] MEDICINE [address] [place] [address] Sandra Boyd, RN documented as of this encounter Visit Diagnoses Not on filedocumented in this encounter Care Teams Nursing Center Tutor Relationship Specialty Start Date End Date Pretty Molina MD 230 [place] [address] PCP - General Family Medicine 12/24/20 Guero Burns, PoloD [address] [place] [address] Pharmacist Internal Medicine 09/20/24 documented as of this encounter
--- OUTSIDE RECORDS SUMMARY | 2024-10-08 17:08 | XMS_ITS | Encounter Summary ---
Author Organization [employer] Address 75 [facility] 7t [place] [address] Care Team Providers Care Licensed Sales Producer Name Role Phone Pretty Molina MD Primary Care Provide r Guero Burns PharmD Unavailable [phone] Reason for Visit * Reason Comments Med Refill Encounter Details Date Type Department Care Team (Late st Contact Info) Description 04/21/2024 Refill [facility] MEDICINE 230 [place] [address] Pretty Molina MD 230 [place] [address] Neuropathy Social History Tobacco Use Types Packs/Day [...] Description 10/10/2024 10:30 AM EDT Office Visit [address] [address] Pretty Molina MD [address] [place] [address] 10/23/2024 1:30 PM EDT Telemedicine [address] [address] Guero Burns, PoloD [address] [place] [address] 12/05/2024 2:00 PM EDT Clinical Support [address] [address] Sandra Boyd RN documented as of this encounter Visit Diagnoses Diagnosis Neuropathy Mononeuritis of unspecified site documented in this encounter Additional Health Concerns Assessment Noted Time PHQ-9 Depression Total Score: 4 01/06/20 24 2:22 PM EDT documented as of this encounter Care Teams Licensed Sales Producer Relationship Specialty Start Date End Date Pretty Molina MD [address] [place] [address] PCP - General Family Medicine 12/24/20 Guero Burns, PharmD [address] [place] [address] Pharmacist Internal Medicine 09/20/24 documented as of this encounter
--- OUTSIDE RECORDS SUMMARY | 2024-10-08 17:08 | XMS_ITS | Encounter Summary ---
Author Organization [employer] Address 75 [facility] 7t [place] [address] Care Team Providers Care Taximeter Repairer Name Role Phone Pretty Molina MD Primary Care Provide r Guero Burns PharmD Unavailable [phone] Reason for Visit * Reason Comments Med Refill Encounter Details Date Type Department Care Team (Late st Contact Info) Description 10/08/2024 Refill [facility] MEDICINE 230 [place] [address] Guero Burns, PharmD 230 [place] [address] Tobacco dependence Social History Tobacco Use Types Packs/Day Years [...] encounter Miscellaneous Notes * Telephone Encounter - Guero Burns PharmD - 10/08/2024 3:53 PM EDT Nicotine Lozenges will not be renewed at this time. Last CD[facility] visit, 10/04/2024, patient reported using sparingly and having sufficient supply. NRT renewals will be considered after discussion at [facility]U in 2 weeks. documented in this encounter Plan of Treatment Upcoming Encounters Date Type Department Care Team (Late st Contact Info) Description 10/10/2024 10:30 AM EDT Office Visit [facility] MEDICINE [address] [place] [address] Pretty Molina MD 230 [place] [address] 10/23/2024 1:30 PM EDT Telemedicine [facility] MEDICINE [address] [place] [address] Guero Burns PharmD 230 [place] [address] 12/05/2024 2:00 PM EDT Clinical Support [facility] MEDICINE [address] [place] [address] Sandra Boyd, RN documented as of this encounter Visit Diagnoses Diagnosis Tobacco dependence Tobacco use disorder documented in this encounter Additional Health Concerns Assessment Noted Time PHQ-9 Depression Total Score: 4 01/06/20 24 2:22 PM EDT documented as of this encounter Care Teams Taximeter Repairer Relationship Specialty Start Date End Date Pretty Molina MD [address] [place] [address] PCP - General Family Medicine 12/24/20 Guero Burns, PharmD [address] [place] [address] Pharmacist Internal Medicine 09/20/24 documented as of this encounter
--- OUTSIDE RECORDS SUMMARY | 2024-10-08 17:08 | XMS_ITS | Clinical Summary ---
Author Organization [address] [facility] Address [address] [place] [address] Phone Care Team Providers Care Tissue Inserter Name Role Phone Pretty Molina MD [...] by mouth 2 times daily. Active ceramide 1,3,7-TS-wncf-hyal ur (CeraVe PM) lotion,extended release Apply topically. [...] 2 times daily. Active miscellaneous medical supply [facility] by Does not apply route. Active NICOTINE, [...] completed and was unremarkable Morbid obesity ([facility] V[facility], [facility] V28) 2018 Type 2 diabetes mellitus ([facility] V[facility], [facility] V 28) 01/23/2019 Surgical History Surgery Date Site/Laterality Comments TUBAL LIGATION PROCEDURE: HISTORICAL TUBAL LIGATION OTHER SURGICAL HISTORY PROCEDURE: IN GRAFT COMPOSITE W/PRIMARY CLOSURE DONOR AREA Medical History Medical History Date Comments HTN (hypertension) DX:HTN (hyper tension) Depression DX:Depression Chronic pain DX:Chronic pain Obesity DX:Obesity 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[facility] V24, [facility] V28) DX:Microalbuminuric diabeti c nephropathy ([facility]) Hyperlipidemia DX:Hyperlipidemi a Carpal tunnel syndrome, bilateral DX:Carpal tunnel syndrome, bilateral Type 2 diabetes mellitus ( S/[facility] V24, [facility] V28) DX:Type 2 diabetes mellitus ([facility]) IBS (irritable bowel syndrome) D [...] * Annual BMP Blood Test (01/10/2024) Pathologist [facility] Annual BMP Blood Test abstracted [facility] Provider HEALTH MAINTENANCE Final Result * Lipid panel (01/10/2024) [facility] Triglycerides 0 mg/dL Comment:no interpretation Cholesterol 0 mg/dL Comment:no interpretation HDL 0 mg/dL Comment:no interpretation LDL Cholesterol 0 mg/dL Comment:no interpretation Blood Venous blood specimen / Unknown [facility] Provider LAB BLOOD ORDERABLES Teresa l Result * Cervical Cancer Screening: HPV (04/18/2023) [facility] Cervical Cancer Screening: HPV No interpreta tion,abstr acted [facility] Provider [facility] Final Result * Hemoglobin A1c (07/20/2021) [facility] Hemoglobin A1C 0.0 % Comment:no interpretation Blood Venous blood specimen / Unknown [facility] Provider LAB BLOOD ORDERABLES Teresa l Result from Last 3 Months or Most Recently Relevant to Health Maintenance Insurance [place] Care Teams Tissue Inserter Relationship Specialty Start Date End Date Pretty Molina MD [address] [place] [phone] PCP - General 06/01/23
--- OUTSIDE RECORDS SUMMARY | 2024-10-08 17:08 | XMS_ITS | Encounter Summary ---
Author Organization [employer] Address 75 [facility] 7t [place] [address] Care Team Providers Care Geophysical E Logger Name Role Phone Pretty Molina MD Primary Care Provide r Guero Burns PharmD Unavailable [phone] Reason for Visit * Reason Comments Med Refill Encounter Details Date Type Department Care Team (Late st Contact Info) Description 04/05/2024 Refill [facility] MEDICINE 230 [place] [address] Pretty Molina MD 230 [place] [address] Other chronic pain Social History Tobacco Use [...] Description 10/10/2024 10:30 AM EDT Office Visit [address] [address] Pretty Molina MD [address] [place] [address] 10/23/2024 1:30 PM EDT Telemedicine [address] [address] Guero Burns, PharmD [address] [place] [address] 12/05/2024 2:00 PM EDT Clinical Support [address] [address] Sandra Boyd RN documented as of this encounter Visit Diagnoses Diagnosis Other chronic pain documented in this encounter Additional Health Concerns Assessment Noted Time PHQ-9 Depression Total Score: 4 01/06/20 24 2:22 PM EDT documented as of this encounter Care Teams Geophysical E Logger Relationship Specialty Start Date End Date Pretty Molina MD [address] [place] [address] PCP - General Family Medicine 12/24/20 Guero Burns, PoloD [address] [place] [address] Pharmacist Internal Medicine 09/20/24 documented as of this encounter
--- OUTSIDE RECORDS SUMMARY | 2024-10-08 17:08 | XMS_ITS | Encounter Summary ---
Author Organization [employer] Address 75 [facility] 7t [place] [address] Care Team Providers Care Dining Room Attendant Name Role Phone Pretty Molina MD Primary Care Provide r Guero Burns PharmD Unavailable [phone] Reason for Visit * Reason Comments Med Refill Encounter Details Date Type Department Care Team ([facility] st Contact Info) Description 04/15/2024 Refill [facility] CHC MED & PEDS [address] [place] [address] Pretty Molina MD 230 [place] [address] Social History Tobacco Use Types Packs/Day Years [...] Description 10/10/2024 10:30 AM EDT Office Visit [address] [address] Pretty Molina MD [address] [place] [address] 10/23/2024 1:30 PM EDT Telemedicine [address] [address] Guero Burns, PharmD [address] [place] [address] 12/05/2024 2:00 PM EDT Clinical Support [address] [address] Sandra Boyd RN documented as of this encounter Visit Diagnoses Not on filedocumented in this encounter Additional Health Concerns Assessment Noted Time PHQ-9 Depression Total Score: 4 01/06/20 24 2:22 PM EDT documented as of this encounter Care Teams Dining Room Attendant Relationship Specialty Start Date End Date Pretty Molina MD [address] [place] [address] PCP - General Family Medicine 12/24/20 Guero Burns, PoloD [address] [place] [address] Pharmacist Internal Medicine 09/20/24 documented as of this encounter
--- OUTSIDE RECORDS SUMMARY | 2024-10-08 17:08 | XMS_ITS | Encounter Summary ---
Author Organization [employer] Address 75 [facility] 7t [place] [address] Care Team Providers Care Hull And Deck Remover Name Role Phone Pretty Molina MD Primary Care Provide r Guero Burns PharmD Unavailable [phone] Reason for Visit * Reason Comments Med Refill Encounter Details Date Type Department Care Team (Late st Contact Info) Description 11/24/2022 Refill [facility] 230 [place] [address] Eliezer Richardson DDS 230 [place] [address] Social History Tobacco Use Types Packs/Day Years [...] Description 10/10/2024 10:30 AM EDT Office Visit [address] [address] Pretty Molina MD [address] [place] [address] 10/23/2024 1:30 PM EDT Telemedicine [address] [address] Guero Burns, Mario [address] [place] [address] [phone] 12/05/2024 2:00 PM EDT Clinical Support [address] [phone] Sandra Boyd, TONY documented as of this encounter Visit Diagnoses Not on filedocumented in this encounter Additional Health Concerns Assessment Noted Time PHQ-9 Depression Total Score: 12 023 3:08 PM EDT documented as of this encounter Care Teams Hull And Deck Remover Relationship Specialty Start Date End Date Pretty Molina MD [address] [place] [address] [phone] PCP - General Family Medicine 12/24/20 Guero Burns, PharmD [address] [place] [address] [phone] Pharmacist Internal Medicine 09/20/24 documented as of this encounter
--- OUTSIDE RECORDS SUMMARY | 2024-10-08 17:08 | XMS_ITS | Encounter Summary ---
Author Organization [email or web address] Address 75 [facility] 7t [place] [address] Care Team Providers Care Upper Stitcher Name Role Phone Pretty Molina MD Primary Care Provide r Guero Burns PharmD Unavailable [phone] Reason for Visit * Reason Onset Date Comments Nurse Triage 04/26/2024 Encounter Details Date Type Department Care Team (Late st Contact Info) Description 04/26/[address] [facility] MEDICINE 230 [place] [address] Pretty Molina MD 230 [place] [address] Nurse Triage Social History Tobacco Use Types [...] 12:18 PM EST Please obtain note from [facility] visit 04/24/24, Upcoming appt with PCP tomorrow at 11am. * Telephone Encounter - Valeria Hooper LPN - 04/26/2024 11:58 AM EST Triage call returned with BLS #[id number] Yonathan. Patient reports that she was seen on 04/19/24. Patient is reporting following her Flu shot she has been feeling delicate . Chart shows Flu given in March. Call dropped. Return call with [employer] Mercedes. Patient reports seen at [facility] and not improved with cough and congestion. Has no reported fever. Patient then reports presented to [facility] ED on 04/24/24 and was given scan [...] caller accepted this outcome. Contact pt at [phone] documented in this encounter Plan of Treatment Upcoming Encounters Date Type Department Care Team (Late st Contact Info) Description 10/10/2024 10:30 AM EDT Office Visit [address] [address] Pretty Molina MD [address] [place] [address] 10/23/2024 1:30 PM EDT Telemedicine [address] [address] Guero Burns, Mario [address] [place] [address] 12/05/2024 2:00 PM EDT Clinical Support [address] [address] Sandra Boyd RN documented as of this encounter Visit Diagnoses Not on filedocumented in this encounter Additional Health Concerns Assessment Noted Time PHQ-9 Depression Total Score: 4 01/06/20 24 2:22 PM EDT documented as of this encounter Care Teams Upper Stitcher Relationship Specialty Start Date End Date Pretty Molina MD 230 [place] [address] PCP - General Family Medicine 12/24/20 Guero Burns, PoloD 230 [place] [address] Pharmacist Internal Medicine 09/20/24 documented as of this encounter
--- OUTSIDE RECORDS SUMMARY | 2024-10-08 17:08 | XMS_ITS | Encounter Summary ---
Author Organization [employer] Address 75 [facility] 7t [place] [address] Care Team Providers Care Careers Adviser Name Role Phone Pretty Molina MD Primary Care Provide r Guero Burns PharmD Unavailable [phone] Reason for Visit * Reason Comments Med Refill Encounter Details Date Type Department Care Team (Late st Contact Info) Description 12/06/2023 Refill [facility] MEDICINE 230 [place] [address] Pretty Molina MD 230 [place], [place] [phone] Other chronic pain Social History Tobacco Use [...] 10/10/2024 10:30 AM EDT Office Visit [address] [address] Pretty Molina MD [address] [place] [address] 10/23/2024 1:30 PM EDT Telemedicine [address] [address] Guero Burns PharmD [address] [place] [address] 12/05/2024 2:00 PM EDT Clinical Support [address] [address] Sandra Boyd RN documented as of this encounter Visit Diagnoses Diagnosis Other chronic pain documented in this encounter Additional Health Concerns Assessment Noted Time PHQ-9 Depression Total Score: 12 023 3:08 PM EDT documented as of this encounter Care Teams Careers Adviser Relationship Specialty Start Date End Date Pretty Molina MD [address] [place] [address] [phone] PCP - General Family Medicine 12/24/20 Guero Burns, PharmD [address] [place] [address] [phone] Pharmacist Internal Medicine 09/20/24 documented as of this encounter
--- OUTSIDE RECORDS SUMMARY | 2024-10-08 17:08 | XMS_ITS | Encounter Summary ---
Author Organization [employer] Address 75 [facility] 7t [place] [address] Care Team Providers Care Bee Raiser Name Role Phone Pretty Molina MD Primary Care Provide r Guero Burns PharmD Unavailable [phone] Reason for Visit * Reason Comments Med Refill Encounter Details Date Type Department Care Team (Late st Contact Info) Description 12/27/2022 Refill [facility] MEDICINE 230 [place] [address] Jocelyn Bender DO 230 [place] [address] Seasonal allergic rhinitis, unspecified trigger Social History [...] 10/10/2024 10:30 AM EDT Office Visit [address] [address] Pretty Molina MD [address] [place] [address] 10/23/2024 1:30 PM EDT Telemedicine [address] [address] Guero Burns, Mario [address] [place] [address] 12/05/2024 2:00 PM EDT Clinical Support [address] [address] Sandra Boyd, TONY documented as of this encounter Visit Diagnoses Diagnosis Seasonal allergic rhinitis, unspecified trigger documented in this encounter Additional Health Concerns Assessment Noted Time PHQ-9 Depression Total Score: 12 023 3:08 PM EDT documented as of this encounter Care Teams Bee Raiser Relationship Specialty Start Date End Date Pretty Molina MD [address] [place] [address] [phone] PCP - General Family Medicine 12/24/20 Guero Burns, Mario [address] [place] [address] [phone] Pharmacist Internal Medicine 09/20/24 documented as of this encounter
--- OUTSIDE RECORDS SUMMARY | 2024-10-08 17:08 | XMS_ITS | Encounter Summary ---
Author Organization [employer] Address 75 [facility] 7t [place] [address] Care Team Providers Care Psychiatric Np Name Role Phone Pretty Molina MD Primary Care Provide r Guero Burns PharmD Unavailable [phone] Reason for Visit * Reason Onset Date Comments Med Refill 01/05/2023 Encounter Details Date Type Department Care Team (Late st Contact Info) Description 01/05/2023 Telephone [facility] MEDICINE 230 [place] [address] Pretty Molina MD 230 [place] [address] Med Refill Social History Tobacco Use Types [...] Description 10/10/2024 10:30 AM EDT Office Visit [address] [address] Pretty Molina MD [address] [place] [address] 10/23/2024 1:30 PM EDT Telemedicine [address] [address] Guero Burns, Mario [address] [place] [address] 12/05/2024 2:00 PM EDT Clinical Support [address] [phone] Sandra Boyd, TONY documented as of this encounter Visit Diagnoses Not on filedocumented in this encounter Additional Health Concerns Assessment Noted Time PHQ-9 Depression Total Score: 12 023 3:08 PM EDT documented as of this encounter Care Teams Psychiatric Np Relationship Specialty Start Date End Date Pretty Molina MD [address] [place] [address] [phone] PCP - General Family Medicine 12/24/20 Guero Burns, PharmD [address] [place] [address] [phone] Pharmacist Internal Medicine 09/20/24 documented as of this encounter
--- NOTE | 2024-11-12 12:55 | HO.ANESPROP2 ---
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 Baseline EKG has first-degree heart block) s/p D&C hyst 08/2024 with GA-LMA 4 (optimized per Cardiology prior) Anesthesia Pre-Procedure Meds Is the patient on any of the following meds?: GLP1/DPP4 and SGLT2 Inhib PMFSH Active Problems Active Problems: All Active Problems Varicose veins of both lower extremities with inflammation (Acute) Chronic idiopathic constipation (Acute) Hyperlipidemia (Acute) Thickened endometrium (Acute) Uterine myoma (Acute) Low back pain (Acute) Pelvic pressure in female (Acute) Urinary frequency (Acute) Chest discomfort (Acute) Hemorrhoids (Acute) Tubular adenoma (Acute) Skin pain (Acute) Encounter for screening colonoscopy (Acute) Chronic constipation (Acute) Family history of cancer (Acute) Anal fissure (Acute) Papule of skin (Acute) Urinary urgency (Acute) UTI symptoms (Acute) Pelvic pain (Acute) Overactive bladder (Acute) Microscopic hematuria (Acute) Complex renal cyst (Acute) Heart block atrioventricular (Acute) Asymmetric septal hypertrophy (Acute) Essential hypertension (Acute) Heart palpitations (Acute) UTI (urinary tract infection) (Acute) Vulvovaginitis (Acute) Trochanteric bursitis of right hip (Acute) Breast pain, right (Acute) Nipple discharge (Acute) Late latent syphilis (Acute) Herpes genitalia (Acute) Microscopic hematuria (Acute) Female pelvic pain (Acute) Vulvar ulcer (Acute) Left forearm pain (Acute) Left wrist pain (Acute) Left hand pain (Acute) Diabetes (Acute) Renal cyst (Acute) Hematuria of unknown cause (Acute) S/P lumpectomy of breast (Acute 04/20/21) Past Medical History Medical History Asymmetric septal hypertrophy Heart block atrioventricular Chronic pain Depression Vascular insufficiency Lichen Hip pain Foot pain Foot callus Cubital tunnel syndrome Chronic vulvovaginitis Carpal tunnel syndrome Burn scar contracture of upper arm Blurring of visual image Mood disorder Hyperlipidemia Renal cyst Hematuria of unknown cause Smoker Arthritis Back pain Diabetes GERD (gastroesophageal reflux disease) Fibromyalgia Anxiety and depression MARK on CPAP Chronic sinusitis Asthma Elevated cholesterol HTN (hypertension) Family History Family History Father No problems noted. Mother No problems noted. Maternal Aunt Breast cancer Family history of problems with anesthesia: No Surgical History Surgical History Hx of cystoscopy S/P lumpectomy of breast (04/20/21) Hx of colonoscopy Hx of dilation and curettage H/O tubal ligation History of skin graft History of Problems with Anesthesia: No Social History Social History Household Members Other:: Friend Are you a primary pharmacist critical care to a significant other at home: No Do you presently have visiting nurse or other home services: No Alcohol intake: never Patient Tobacco Use Status: Current everyday Tobacco user Tobacco use type: Cigarette Cigarette Packs Per Day: 0.25 Cigarettes Per Day: 5 Years Smoked: 30 Use of substances other than those prescribed or required for medical reasons: No Have you been hit, kicked, punched, or otherwise hurt by someone within the past year? 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 Meds Allergies Allergy/AdvReac Type Severity Reaction Status Date / Time morphine [MORPHINE] Allergy Unknown UNKNOWN Verified 11/13/24 07:25 Home Medications ?Medication ?Instructions ?Recorded ?Confirmed ?Last Taken ?Type duloxetine 30 mg capsule,delayed 30 mg PO QPM 04/03/21 08/07/24 11/16/22 08:15 History release (Cymbalta) duloxetine 60 mg capsule,delayed 60 mg PO QAM 04/03/21 08/07/24 11/16/22 08:15 History release (Cymbalta) fluoride (sodium) 1.1 % dental 1 appl dental BID 04/03/21 08/07/24 Unknown History cream (SF 5000 Plus) hydrochlorothiazide 12.5 mg tablet 12.5 mg PO QAM 04/03/21 08/07/24 Unknown History albuterol sulfate 2.5 mg/3 mL 1 amp inhalation Q6H PRN Wheezing 04/13/21 08/07/24 Unknown History (0.083 %) solution for nebulization albuterol sulfate 90 mcg/actuation 2 puff inhalation Q4-6H PRN 04/13/21 08/07/24 04/20/21 08:30 History aerosol inhaler (ProAir HFA) Wheezing cholecalciferol (vitamin D3) 25 1 cap PO QAM 04/13/21 08/07/24 Unknown History mcg (1,000 unit) capsule (Vitamin D3) cyclosporine 0.05 % eye drops in a 1 drp ophthalmic (eye) BID 04/13/21 08/07/24 Unknown History dropperette (Restasis) fluticasone propionate 50 2 spray intranasal DAILY 04/13/21 08/07/24 04/20/21 08:30 History mcg/actuation nasal spray,suspension (Flonase Allergy Relief) lancets 33 gauge (TRUEplus Lancets) #100 ea 07/09/21 08/07/24 Unknown History ketoconazole 2 % shampoo 1 appl topical BID 09/22/21 08/07/24 Unknown History aspirin 81 mg tablet,delayed 81 mg PO DAILY 03/02/22 08/07/24 11/09/24 History release (Adult Low Dose Aspirin) cetirizine 10 mg tablet (Allergy 10 mg PO QAM 03/02/22 08/07/24 11/16/22 08:15 History Relief (cetirizine)) gabapentin 300 mg capsule 600 mg PO TID 03/02/22 08/07/24 11/16/22 08:15 History (Neurontin) glipizide 10 mg tablet 10 mg PO QAM 03/02/22 08/07/24 Unknown History omeprazole 20 mg capsule,delayed 20 mg PO QAM 03/02/22 08/07/24 11/16/22 08:15 History release loratadine 10 mg tablet (Claritin) 10 mg PO DAILY PRN allergies 07/06/22 08/07/24 Unknown History empagliflozin 25 mg tablet 25 mg PO QAM 07/09/22 11/13/24 11/10/24 History (Jardiance) metformin 1,000 mg tablet 1,000 mg PO BID 07/09/22 08/07/24 Unknown History risperidone 2 mg tablet (Risperdal) 2 mg PO BEDTIME 07/09/22 08/07/24 Unknown History celecoxib 200 mg capsule (Celebrex) 200 mg PO QAM 11/16/22 08/07/24 11/16/22 08:15 History losartan 100 mg tablet 100 mg PO QAM 12/27/22 08/07/24 Unknown History naloxone 4 mg/actuation nasal spray 1 spray intranasal DAILY PRN 12/27/22 08/07/24 Unknown History Opioid Overdose nifedipine 60 mg tablet,extended 60 mg PO DAILY 12/27/22 08/07/24 Unknown History release 24 hr oxycodone-acetaminophen 5 mg-325 1 tab PO BID PRN pain (scale score 12/27/22 08/07/24 Unknown History mg tablet (Endocet) 7-10) atorvastatin 80 mg tablet 80 mg PO BEDTIME 05/28/24 08/07/24 Unknown History blood sugar diagnostic (FreeStyle #10 ea 05/28/24 08/07/24 Unknown History Lite Strips) estradiol 0.01% (0.1 mg/gram) 1 g vaginal 2XW 05/28/24 08/07/24 Unknown History vaginal cream ammonium lactate 12 % lotion topical BEDTIME 10/03/24 Unknown History diclofenac sodium 1 % topical gel 2 g topical Q12H 10/03/24 Unknown History dulaglutide 1.5 mg/0.5 mL mg subcut QWEEK 10/03/24 11/01/24 History subcutaneous pen injector (Trulicity) triamcinolone acetonide 0.1 % topical 10/03/24 Unknown History topical ointment Exam Narrative Narrative: ECHO 08/2024 Conclusions: - The left ventricular systolic function is normal. The calculated ejection fraction is 56% by biplane method. - There is moderate septal asymmetric hypertrophy. - There is mild calcification of the aortic valve. EKG 07/2024 Details: EKG today showed normal sinus rhythm, 62 beats per minute, low-voltage QRS, nonspecific STT wave abnormalities, normal [place], corrected QT. 08/02/2024-coronary CTA showed minimal stenosis in the mid left main, minimal stenosis at the origin of the ramus. 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 Assessment and Plan Assessment Anesthesia Assessment: Chart Reviewed Final Anesthetic Review Family History of Problems with Anesthesia: No History of Problems with Anesthesia: No Documented by User: Suhail Louis MD 11/13/24 08:27 PMFSH Past Medical History Medical History Asymmetric septal hypertrophy Heart block atrioventricular Chronic pain Depression Vascular insufficiency Lichen Hip pain Foot pain Foot callus Cubital tunnel syndrome Chronic vulvovaginitis Carpal tunnel syndrome Burn scar contracture of upper arm Blurring of visual image Mood disorder Hyperlipidemia Renal cyst Hematuria of unknown cause Smoker Arthritis Back pain Diabetes GERD (gastroesophageal reflux disease) Fibromyalgia Anxiety and depression MARK on CPAP Chronic sinusitis Asthma Elevated cholesterol HTN (hypertension) Family History Family History Father No problems noted. Mother No problems noted. Maternal Aunt Breast cancer Surgical History Surgical History Hx of cystoscopy S/P lumpectomy of breast (04/20/21) Hx of colonoscopy Hx of dilation and curettage H/O tubal ligation History of skin graft Social History Social History Household Members Other:: Friend Are you a primary pharmacist critical care to a significant other at home: No Do you presently have visiting nurse or other home services: No Alcohol intake: never Patient Tobacco Use Status: Current everyday Tobacco user Tobacco use type: Cigarette Cigarette Packs Per Day: 0.25 Cigarettes Per Day: 5 Years Smoked: 30 Use of substances other than those prescribed or required for medical reasons: No Have you been hit, kicked, punched, or otherwise hurt by someone within the past year? 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 Meds Allergies Allergy/AdvReac Type Severity Reaction Status Date / Time morphine [MORPHINE] Allergy Unknown UNKNOWN Verified 11/13/24 07:25 Home Medications ?Medication ?Instructions ?Recorded ?Confirmed ?Last Taken ?Type duloxetine 30 mg capsule,delayed 30 mg PO QPM 04/03/21 08/07/24 11/16/22 08:15 History release (Cymbalta) duloxetine 60 mg capsule,delayed 60 mg PO QAM 04/03/21 08/07/24 11/16/22 08:15 History release (Cymbalta) fluoride (sodium) 1.1 % dental 1 appl dental BID 04/03/21 08/07/24 Unknown History cream (SF 5000 Plus) hydrochlorothiazide 12.5 mg tablet 12.5 mg PO QAM 04/03/21 08/07/24 Unknown History albuterol sulfate 2.5 mg/3 mL 1 amp inhalation Q6H PRN Wheezing 04/13/21 08/07/24 Unknown History (0.083 %) solution for nebulization albuterol sulfate 90 mcg/actuation 2 puff inhalation Q4-6H PRN 04/13/21 08/07/24 04/20/21 08:30 History aerosol inhaler (ProAir HFA) Wheezing cholecalciferol (vitamin D3) 25 1 cap PO QAM 04/13/21 08/07/24 Unknown History mcg (1,000 unit) capsule (Vitamin D3) cyclosporine 0.05 % eye drops in a 1 drp ophthalmic (eye) BID 04/13/21 08/07/24 Unknown History dropperette (Restasis) fluticasone propionate 50 2 spray intranasal DAILY 04/13/21 08/07/24 04/20/21 08:30 History mcg/actuation nasal spray,suspension (Flonase Allergy Relief) lancets 33 gauge (TRUEplus Lancets) #100 ea 07/09/21 08/07/24 Unknown History ketoconazole 2 % shampoo 1 appl topical BID 09/22/21 08/07/24 Unknown History aspirin 81 mg tablet,delayed 81 mg PO DAILY 03/02/22 08/07/24 11/09/24 History release (Adult Low Dose Aspirin) cetirizine 10 mg tablet (Allergy 10 mg PO QAM 03/02/22 08/07/24 11/16/22 08:15 History Relief (cetirizine)) gabapentin 300 mg capsule 600 mg PO TID 03/02/22 08/07/24 11/16/22 08:15 History (Neurontin) glipizide 10 mg tablet 10 mg PO QAM 03/02/22 08/07/24 Unknown History omeprazole 20 mg capsule,delayed 20 mg PO QAM 03/02/22 08/07/24 11/16/22 08:15 History release loratadine 10 mg tablet (Claritin) 10 mg PO DAILY PRN allergies 07/06/22 08/07/24 Unknown History empagliflozin 25 mg tablet 25 mg PO QAM 07/09/22 11/13/24 11/10/24 History (Jardiance) metformin 1,000 mg tablet 1,000 mg PO BID 07/09/22 08/07/24 Unknown History risperidone 2 mg tablet (Risperdal) 2 mg PO BEDTIME 07/09/22 08/07/24 Unknown History celecoxib 200 mg capsule (Celebrex) 200 mg PO QAM 11/16/22 08/07/24 11/16/22 08:15 History losartan 100 mg tablet 100 mg PO QAM 12/27/22 08/07/24 Unknown History naloxone 4 mg/actuation nasal spray 1 spray intranasal DAILY PRN 12/27/22 08/07/24 Unknown History Opioid Overdose nifedipine 60 mg tablet,extended 60 mg PO DAILY 12/27/22 08/07/24 Unknown History release 24 hr oxycodone-acetaminophen 5 mg-325 1 tab PO BID PRN pain (scale score 12/27/22 08/07/24 Unknown History mg tablet (Endocet) 7-10) atorvastatin 80 mg tablet 80 mg PO BEDTIME 05/28/24 08/07/24 Unknown History blood sugar diagnostic (Brunoyle #10 ea 05/28/24 08/07/24 Unknown History Lite Strips) estradiol 0.01% (0.1 mg/gram) 1 g vaginal 2XW 05/28/24 08/07/24 Unknown History vaginal cream ammonium lactate 12 % lotion topical BEDTIME 10/03/24 Unknown History diclofenac sodium 1 % topical gel 2 g topical Q12H 10/03/24 Unknown History dulaglutide 1.5 mg/0.5 mL mg subcut QWEEK 10/03/24 11/01/24 History subcutaneous pen injector (Trulicity) triamcinolone acetonide 0.1 % topical 10/03/24 Unknown History topical ointment Exam Airway Mallampati Class: I TM Dist: <=3cm Neck ROM: Full Loose/Missing/Broken Teeth: No Heart: ok Lungs: ok Assessment and Plan Assessment Anesthesia Assessment: Anesthesia Plan Discussed Final Anesthetic Review NPO: Yes ASA Class: III Final Preanesthetic Review: No Changes in Pt Med Stat, Meds/Allgs Chart Reviewed, Consent Obtained/Reviewed and Anes Risks/Benef Reviewed Patient Risk: Intermediate Procedure Risk: Low Anesthetic Plan Anesthetic Plan: MAC: and Agree w/ Assess. and Plan Disposition: Standard PACU
[2024-11-13 07:55] LABS: Glucose, Whole Blood 117 mg/dL (60-115)
--- NOTE | 2024-11-13 07:55 | MHC.SHP ---
Pre-Procedural Eval Section A - 24 Hr Update-Section A only Date of Service: 11/13/24 Section B - Complete if H&P > 30 days Chief Complaint: Personal history of colon polyps, unspecified Details of Present Illness: Asymmetric septal hypertrophy Heart block atrioventricular Chronic pain Depression Vascular insufficiency Lichen Hip pain Foot pain Foot callus Cubital tunnel syndrome Chronic vulvovaginitis Carpal tunnel syndrome Burn scar contracture of upper arm Blurring of visual image Mood disorder Hyperlipidemia Renal cyst Hematuria of unknown cause Smoker Arthritis Back pain Diabetes GERD (gastroesophageal reflux disease) Fibromyalgia Anxiety and depression MARK on CPAP Chronic sinusitis Asthma Elevated cholesterol HTN (hypertension) Surgical History Hx of cystoscopy S/P lumpectomy of breast (04/20/21) Hx of colonoscopy Hx of dilation and curettage H/O tubal ligation History of skin graft Present Medications: see Short Stay Collaborative assessment Allergies: Allergies Allergy/AdvReac Type Severity Reaction Status Date / Time morphine [MORPHINE] Allergy Unknown UNKNOWN Verified 11/13/24 07:25 Review of Systems Review of Systems Comment: Ten point ROS negative Exam Exam Comment: Gen appear: No acute distress HEENT: no icterus Chest: No overt resp distress Abd: soft, nontender, nondistended Psych: Stable affect, answering questions appropriately Neuro: A/Ox3 noted to move all extremities spontaneously Ext: no peripheral edema Plan Diagnosis/Plan: Unchanged I have reviewed the history and physical and performed a pertinent physical examination on my patient. No changes have occurred unless specified. Time Spent With Patient Time: Total time managing care of this patient today ____ minutes.
[2024-11-13 07:59] VITALS: BP 135/70; PULSE 55; RESP 18; TEMP 37.1; O2SAT 98; BMI 37.9
[2024-11-13] MEDS: Lactated Ringers 1,000 ML 100 ML IVCONT (08:05)
[2024-11-13 09:00] VITALS: BP 114/55; PULSE 55; RESP 16; TEMP 36.6; O2SAT 99
--- NOTE | 2024-11-13 09:08 | HO.OPN-COLON ---
Colonoscopy Operative Note Operative Note Date of Service: 11/13/24 Narrative: Procedure: Colonoscopy Indication: Personal history of polyps Endoscopist: Viola Acuna MD Anesthesia Provider: Dr Suhail Louis Anesthesia type: MAC Instrument: Olympus [id number]-H190L Consent: Indication, risks vs benefits, and alternatives were discussed with the patient who gave written informed consent to proceed. An motor vehicle parts interpreter was utilized to assist with the consent. Monitoring: EKG, pulse, pulse oximetry and blood pressure were monitored throughout the procedure. Please see anesthesia flowsheet. Procedure: The patient was brought to the procedure room and placed in the left lateral decubitus position. An abdominal binder was secured. IV medications were administered by the anesthesia provider in attendance. A digital rectal exam was performed which was abnormal due to finding of hemorrhoids. A distal attachment cap was affixed to the tip of the colonoscope which was then inserted through the anus and advanced through the colon to the cecum at 75 cm,and terminal ileum. Appendiceal orifice and ileocecal valve were identified. Mucosa was carefully examined under high definition white light as the instrument was slowly withdrawn in a retrograde panoramic fashion. Retroflexion was performed in rectum. The procedure was not difficult. There were no immediate obvious complications. The quality of the prep was BBPS: 2+3+2 = adequate Withdrawal time 10 minutes. Limitations: No limitations. Findings: Mucosa: Normal to cecum and terminal ileum. Protruding lesions: Large internal hemorrhoids without stigmata of recent bleeding. Excavated lesions: Moderate diverticulosis of left sided colon. Impression: 1. Normal colon mucosa 2. Diverticulosis 3. Internal hemorrhoids Recommendations: - Repeat colonoscopy in 10 years. - Pt also reported persistent constipation despite taking bisacodyl and miralax. Laron Rxed to pharmacy.
[2024-11-13 09:15] VITALS: BP 142/71; PULSE 54; RESP 16; TEMP 36.1; O2SAT 100
== END 2024-11-13 09:27 | disposition home or self-care (01) ==
PROVIDERS: PCP Internal Medicine; Visit Provider Internal Medicine
PROC: 0DJD8ZZ Inspection of Lower Intestinal Tract, Via Natural or Artificial Opening Endoscopic (ICD-10-PCS; CPT 45378; principal; 2024-11-13 08:10)
DX: Z12.11 Encounter for screening for malignant neoplasm of colon (principal); Z86.0101 Personal history of adenomatous and serrated colon polyps; K57.30 Diverticulosis of large intestine without perforation or abscess without bleeding; K64.8 Other hemorrhoids; K59.04 Chronic idiopathic constipation; K21.9 Gastro-esophageal reflux disease without esophagitis; I10 Essential (primary) hypertension; E78.00 Pure hypercholesterolemia, unspecified; E11.9 Type 2 diabetes mellitus without complications; J45.909 Unspecified asthma, uncomplicated; I44.1 Atrioventricular block, second degree; I99.8 Other disorder of circulatory system; G89.4 Chronic pain syndrome; M79.7 Fibromyalgia; F41.9 Anxiety disorder, unspecified; J32.9 Chronic sinusitis, unspecified; G47.33 Obstructive sleep apnea (adult) (pediatric); Z79.51 Long term (current) use of inhaled steroids; Z79.82 Long term (current) use of aspirin; Z79.84 Long term (current) use of oral hypoglycemic drugs; Z79.85 Long-term (current) use of injectable non-insulin antidiabetic drugs; Z79.899 Other long term (current) drug therapy; Z99.89 Dependence on other enabling machines and devices; Z88.5 Allergy status to narcotic agent; Z98.890 Other specified postprocedural states; F17.210 Nicotine dependence, cigarettes, uncomplicated
CPT/HCPCS: 45378; 82947; J2003; J2704

== ENCOUNTER → 2024-11-13 06:50 | Outpatient (BNV) | payer MEDICAID, SELFPAY | PROVIDERS: PCP Internal Medicine; Visit Provider Internal Medicine | DX: Z12.11 Encounter for screening for malignant neoplasm of colon (principal); Z86.0100 Personal history of colon polyps, unspecified; K57.90 Diverticulosis of intestine, part unspecified, without perforation or abscess without bleeding; K64.8 Other hemorrhoids | CPT/HCPCS: 45378 ==

== ENCOUNTER 2024-11-19 13:12 | Outpatient (REF) | payer MEDICAID, SELFPAY ==
--- NOTE | ~2024-11-19 | US_ITS ---
EXAMINATION: US LOWER EXTREMITY VENOUS (REFLUX EXAM), BILATERAL CLINICAL INFORMATION: Varicose veins of the lower extremity with inflammation COMPARISON: None. TECHNIQUE: Color flow triplex imaging and compression Doppler was performed to evaluate both the deep and the superficial systems bilaterally. To evaluate the superficial system, the examination was performed in the upright position. Color-flow Doppler ultrasound and compression ultrasound were utilized. In addition, maneuvers were utilized to demonstrate reflux. FINDINGS: 1. DEEP VENOUS ULTRASOUND OF THE RIGHT LOWER EXTREMITY: Common Femoral Vein: Compressible, normal respiratory variation and augmented flow. Femoral Vein: Compressible, normal color flow and augmentation. Popliteal Vein: Compressible, normal augmentation. Deep Reflux: There is no evidence of reflux in the deep system in either the common femoral vein, superficial femoral or the popliteal vein. There is no evidence of a Cohen's cyst. 2. SUPERFICIAL ULTRASOUND WITH DOPPLER OF RIGHT LOWER EXTREMITY: GREAT SAPHENOUS VEIN: Saphenofemoral Junction: 25 cm; Reflux: 0 ms Proximal Thigh: 0.5 cm; Reflux: 0 ms Mid Thigh: 0.4 cm; Reflux: 0 ms Distal Thigh: 0.4 cm; Reflux: 0 ms At Knee: 0.3 cm; Reflux: 0 ms Proximal Calf: 0.2 cm; Reflux: > 2484 ms Mid Calf: 0.3 cm; Reflux: 0 ms Distal Calf: 0.3 cm; Reflux: 0 ms Lateral accessory GREAT SAPHENOUS VEIN: Saphenofemoral Junction: 0.3 cm; Reflux: 0 ms Mid Thigh: 0.2 cm; Reflux: 0 ms DUPLICATED MEDIAL GREAT SAPHENOUS VEIN: Diameter: None imaged Reflux: NA DUPLICATED LATERAL GREAT SAPHENOUS VEIN: Diameter: None imaged Reflux: NA SMALL SAPHENOUS VEIN: Popliteal vein drainage Saphenopopliteal Junction: 0.2 cm; Reflux: 0 ms Mid calf: 0.2 cm; Reflux: 0 ms Distal: 0.2 cm; Reflux: 0 ms VEIN OF GIACOMINI: Size: 0.3 cm Reflux: 0 ms PERFORATORS: Location: Greater saphenous vein, proximal calf Size: 0.4 cm Reflux: 0 ms Location: Greater saphenous vein, proximal calf Size: 0.2 cm Reflux: 0 ms Location: Greater saphenous vein, mid calf Size: 0.1-0.2 cm Reflux: 0 ms VARICOSITIES > 3mm: Location: Greater saphenous vein, proximal calf Size: 0.3 cm Reflux: 0 ms 3. DEEP VENOUS ULTRASOUND OF THE LEFT LOWER EXTREMITY: Common Femoral Vein: Compressible, normal respiratory variation and augmented flow. Femoral Vein: Compressible, normal color flow and augmentation. Popliteal Vein: Compressible, normal augmentation. Deep Reflux: There is no evidence of reflux in the deep system in either the common femoral vein, superficial femoral or the popliteal vein. 4. SUPERFICIAL ULTRASOUND WITH DOPPLER OF LEFT LOWER EXTREMITY: GREAT SAPHENOUS VEIN: Saphenofemoral Junction: 0.6 cm; Reflux: 0 ms Proximal Thigh: 0.6 cm; Reflux: 0 ms Mid Thigh: 0.4 cm; Reflux: 0 ms Distal Thigh: 0.4 cm; Reflux: 0 ms At Knee: 0.4 cm; Reflux: 0 ms Proximal Calf: 0.3 cm; Reflux: 1028 ms Mid Calf: 0.5 cm; Reflux: 548 ms Distal Calf: 0.3 cm; Reflux: 0 ms Lateral accessory GREAT SAPHENOUS VEIN: None imaged Medial accessory GREAT SAPHENOUS VEIN: None imaged DUPLICATED MEDIAL GREAT SAPHENOUS VEIN: Diameter: None imaged cm Reflux: NA ms DUPLICATED LATERAL GREAT SAPHENOUS VEIN: Diameter: None imaged. cm Reflux: NA ms SMALL SAPHENOUS VEIN: Thigh drainage Saphenopopliteal Junction: 0.3 cm; Reflux: 0 ms Proximal: 0.3 cm; Reflux: 0 ms Distal: 0.3 cm; Reflux: 0 ms Possible duplicated small saphenous vein distally. Diameter 1 mm. Reflux: 0 VEIN OF GIACOMINI: Size: NA Reflux: NA PERFORATORS: Location: Greater saphenous vein, proximal thigh Size: 0.3 cm Reflux: 0 ms Location: Greater saphenous vein, proximal calf 39 cm from calcaneus Size: 0.2 cm Reflux: 1072 ms Location: Greater saphenous vein, proximal calf Size: 0.2 cm Reflux: 0 ms Location: Greater saphenous vein, mid calf Size: 0.2 cm Reflux: 0 ms Location: Greater saphenous vein, mid calf Size: 0.3 cm Reflux: 0 ms VARICOSITIES > 3mm: Location: Greater saphenous vein, knee Size: 0.3 cm Reflux: 0 ms US/US venous duplex LE BI IMPRESSION: Right: Greater saphenous vein demonstrate reflux below the knee. Varicosities. Left: Greater saphenous vein reflux below the knee and at mid calf. Varicosities. Ed Transporter with reflux is located 39 cm above the heel. Electronically signed by: Brain Hoover MD 11/19/2024 02:38 PM EDT
--- OUTSIDE RECORDS SUMMARY | 2024-11-19 14:54 | XMS_ITS | Encounter Summary ---
Author Organization [employer] Address [address] [place] [address] Care Team Providers Care Drilling Engineer Name Role Phone Pretty Molina MD Primary Care Provide r Guero Burns PharmD Unavailable [phone] Encounter Details Date Type Department Care Team (Late st Contact Info) Description 09/01/2022 Orders Only [facility] [address], [place] [phone] Jocelyn Fleming LPN Social History Tobacco Use [...] 2:00 PM EDT Clinical Support [facility] [address] [place] [address] [phone] Sandra Boyd RN 01/17/2025 11:00 AM EDT Office Visit [facility] [address] [place] [address] [phone] Pretty Molina MD [address] [place], [place] [phone] documented as of this encounter Visit Diagnoses Not on filedocumented in this encounter Care Teams Drilling Engineer Relationship Specialty Start Date End Date Pretty Molina MD [address] [place] [address] [phone] PCP - General Family Medicine 12/24/20 Guero Burns, PoloD [address] [place] [phone] Pharmacist Internal Medicine 09/20/24 documented as of this encounter
== END 2024-11-19 13:13 | disposition home or self-care (01) ==
LOC: HO.US 13:12
PROVIDERS: PCP Internal Medicine; Visit Provider Physician Assistant Surgical
DX: I83.11 Varicose veins of right lower extremity with inflammation (principal); I83.12 Varicose veins of left lower extremity with inflammation
CPT/HCPCS: 93970

== ENCOUNTER → 2024-11-19 13:15 | Outpatient (BNV) | payer MEDICAID, SELFPAY | PROVIDERS: PCP Internal Medicine; Visit Provider Radiology Diagnostic Radiology | DX: I83.93 Asymptomatic varicose veins of bilateral lower extremities (principal) | CPT/HCPCS: 93970 ==

== ENCOUNTER 2024-11-20 10:58 | Outpatient (AMB) | payer MEDICAID, SELFPAY ==
--- NOTE | 2024-11-20 10:59 | A.OFFVIS_ITS ---
Vital Signs 11/20/24 11:06 Height 5 ft 2 in Weight 208 lb BMI 38.0 BP 151/70 H Blood Pressure Location Rt brachial Position Sitting Pulse 72 Intake Visit Reasons: Lipoma Intake Note: Patient referred by pcp Dr. Peace Zayas for lipoma on Lt upper back. Present for yrs. Patient c/o: hx of trauma. Bite injury in same area. Becoming painful. Legal Administrative Assistant Required: Yes Accompanied by: Self / Same As Patient Allergies morphine [MORPHINE] Allergy (Unknown, Verified 11/20/24 11:05) UNKNOWN Medication List - Last Reconciled 11/20/24 by Royal Mathis MD albuterol sulfate 90 mcg/actuation (ProAir HFA) 2 puffs inhalation Q4-6H PRN albuterol sulfate 1 amp inhalation Q6H PRN ammonium lactate 12% topical BEDTIME aspirin (Adult Low Dose Aspirin) 81 mg PO DAILY atorvastatin 80 mg PO BEDTIME bisacodyl 10 mg OK DAILY PRN bisacodyl (Dulcolax (bisacodyl)) 10 mg (2 x 5 mg) PO BID 2 days blood sugar diagnostic (FreeStyle Lite Strips) As directed carvedilol 6.25 mg PO BID celecoxib (Celebrex) 200 mg PO QAM cetirizine (Allergy Relief (cetirizine)) 10 mg PO QAM cholecalciferol (vitamin D3) (Vitamin D3) 1 cap PO QAM cyclobenzaprine 10 mg (2 x 5 mg) PO TID PRN cyclosporine 0.05% (Restasis) 1 drp ophthalmic (eye) BID diclofenac sodium 1% 2 grams topical Q12H docusate sodium (Colace) 200 mg (2 x 100 mg) PO BEDTIME 30 days dulaglutide (Trulicity) mg subcut QWEEK duloxetine (Cymbalta) 60 mg PO QAM duloxetine (Cymbalta) 30 mg PO QPM empagliflozin (Jardiance) 25 mg PO QAM estradiol 0.01%(0.1mg/gram) 1 g vaginal 2XW ezetimibe 10 mg PO DAILY fluoride (sodium) 1.1% (SF 5000 Plus) 1 appl dental BID fluticasone propionate 50 mcg/actuation (Flonase Allergy Relief) 2 sprays intranasal DAILY gabapentin (Neurontin) 600 mg PO TID glipizide 10 mg PO QAM hydrochlorothiazide 12.5 mg PO QAM hydrocortisone 2.5% (Proctozone-HC) 1 appl OK BEDTIME PRN hydroxyzine pamoate 25 - 50 mg (1 - 2 x 25 mg) PO BEDTIME ketoconazole 2% 1 appl topical BID lancets (TRUEplus Lancets) As directed linaclotide (Linzess) 145 mcg PO DAILY loratadine (Claritin) 10 mg PO DAILY PRN losartan 100 mg PO QAM metformin 1,000 mg PO BID mirabegron ER (Myrbetriq) 50 mg PO DAILY naloxone 4 mg/actuation 1 spray intranasal DAILY PRN nifedipine ER 60 mg PO DAILY omeprazole 20 mg PO QAM oxycodone-acetaminophen 5-325 mg (Endocet) 1 tab PO BID PRN risperidone (Risperdal) 2 mg PO BEDTIME sennosides (senna) 17.2 mg (2 x 8.6 mg) PO DAILY 90 days triamcinolone acetonide 0.1% topical HPI HPI Lipoma: Details: [age] year old female referred for a mass on the left upper back. She describes discomfort with this. She says that this may be causing some pain on her shoulder and arm and wants this removed Denies any drainage or any skin changes. COUNTS INCLUDE 234 BEDS AT THE [facility] Medical History (Updated 11/20/24 @ 11:32 by Royal Mathis MD) Subcutaneous mass Asymmetric septal hypertrophy Heart block atrioventricular Chronic pain Depression Vascular insufficiency Lichen Hip pain Foot pain Foot callus Cubital tunnel syndrome Chronic vulvovaginitis Carpal tunnel syndrome Burn scar contracture of upper arm Blurring of visual image Mood disorder Hyperlipidemia Renal cyst Hematuria of unknown cause Smoker Arthritis Back pain Diabetes GERD (gastroesophageal reflux disease) Fibromyalgia Anxiety and depression MARK on CPAP Chronic sinusitis Asthma Elevated cholesterol HTN (hypertension) Surgical History Hx of cystoscopy S/P lumpectomy of breast (04/20/21) Hx of colonoscopy Hx of dilation and curettage H/O tubal ligation History of skin graft Family History Father No problems noted. Mother No problems noted. 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 Female Reproductive History Menstrual Age of Menarche: 14 Review of Systems Const Denies chills and Denies fever(s) Card Denies chest pain, Denies dyspnea and Denies dyspnea on exertion Resp Denies cough, Denies dyspnea and Denies dyspnea on exertion GI Denies hematochezia and Denies change in bowel habits Denies hematuria Musc Denies back pain and Denies limited range of motion Neuro Denies focal weakness and Denies convulsions Psych Denies depression and Denies mood swings Physical Exam Vital Signs: Last Vital Signs Pulse 72 11/20/24 11:06 BP 151/70 H 11/20/24 11:06 BMI result Body Mass Index 38.0 Const General: comfortable and no acute distress Orientation/consciousness: patient oriented x3 Neck Neck: Yes no lymphadenopathy Resp Auscultation: clear to auscultation bilaterally Cardio Rhythm: regular rhythm GI Palpation (GI): Soft to palpation, nontender and no guarding Back/Spine/Pelvis Other: Well-defined subcutaneous mass on the left upper back about 2 cm in diameter, mobile Neuro General: patient oriented x3 Assessment & Plan Assessment & Plan (1) Subcutaneous mass: Code(s): R22.9 - Localized swelling, mass and lump, unspecified Category: Medical Plan: She has this well-defined subcutaneous mass on the back as described above. This likely represents an epidermal inclusion cyst this has a lipoma. I e xplained the technique of excision under local anesthesia. I reviewed the risks, benefits, and alternatives. She wants to proceed but she says that she would like to schedule this on her next visit. Coding Level of Care Code New Pt Level 3 (93266) Diagnoses Subcutaneous mass R22.9
[2024-11-20 11:06] VITALS: BP 151/70; PULSE 72; BMI 38.0
--- OUTSIDE RECORDS SUMMARY | 2024-11-20 13:03 | XMS_ITS | Encounter Summary ---
Author Organization [employer] Address [address] [place] [address] Care Team Providers Care Tufter Name Role Phone Pretty Molina MD Primary Care Provide r Guero Burns PharmD Unavailable [phone] Encounter Details Date Type Department Care Team (Late Contact Info) Description 09/01/2022 Orders Only [facility] [address] [place], [place] [phone] Jocelyn Fleming LPN Social History Tobacco Use [...] Care Team (Late st Contact Info) Description 11/26/2024 2:30 PM EDT Telemedicine [facility] [address] [place] [address] [phone] Guero Burns, PharmD [address] [place], [place] [phone] 12/05/2024 2:00 PM EDT Clinical Support [facility] [address] [place], [place] [phone] Sandra Boyd RN 01/17/2025 11:00 AM EDT Office Visit [facility] [address] [place] [address] [phone] Pretty Molina MD [address] [place] [address] [phone] documented as of this encounter Visit Diagnoses Not on filedocumented in this encounter Care Teams Tufter Relationship Specialty Start Date End Date Pretty Molina MD [address] [place] [address] [phone] PCP - General Family Medicine 12/24/20 Guero Burns, PharmD [address] [place] [address] [phone] Pharmacist Internal Medicine 09/20/24 documented as of this encounter
== END 2024-11-20 11:31 | disposition home or self-care (01) ==
LOC: HO.HGS 10:58
PROVIDERS: PCP Internal Medicine; Visit Provider Surgery
DX: R22.9 Localized swelling, mass and lump, unspecified (principal)
CPT/HCPCS: 99203

== ENCOUNTER → 2024-11-20 10:58 | Outpatient (BNVA) | payer MEDICAID, SELFPAY | PROVIDERS: PCP Internal Medicine; Visit Provider Surgery | DX: R22.9 Localized swelling, mass and lump, unspecified (principal) | CPT/HCPCS: 99202 ==

== ENCOUNTER 2024-12-04 13:01 | Outpatient (AMB) | payer MEDICAID, SELFPAY ==
[2024-12-04 13:02] VITALS: BMI 38.0
--- NOTE | 2024-12-04 13:02 | MHC.OFFVIS ---
Vital Signs 12/04/24 13:02 Height 5 ft 2 in Weight 208 lb BMI 38.0 Intake Visit Reasons: follow up s/p US 11/19/24 Intake Note: Follow up US 11/19/24 for Right LE worse than Left LE. Pt states she gets burning sensation and heaviness x 1 yr Stock Worker And Deliverer Required: Yes Stock Worker And Deliverer Language: Blood Bank Technician Services: Stock Worker And Deliverer Present Stock Worker And Deliverer Name: Luis [id number] Information Interpreted: clinical only Accompanied by: Family/Other Allergies morphine (MORPHINE) Allergy (Unknown, Verified 12/04/24 13:09) UNKNOWN HPI HPI follow up s/p US 11/19/24: Details: Very pleasant 64-year-old female presents for routine follow-up regarding venous insufficiency. She complains more so burning and tingling of the lower extremities. She does smoke about 5 cigarettes a day she is diabetic she also has a prior diagnosis of fibromyalgia as well. [facility] Medical History Subcutaneous mass Asymmetric septal hypertrophy Heart block atrioventricular Chronic pain Depression Vascular insufficiency Lichen Hip pain Foot pain Foot callus Cubital tunnel syndrome Chronic vulvovaginitis Carpal tunnel syndrome Burn scar contracture of upper arm Blurring of visual image Mood disorder Hyperlipidemia Renal cyst Hematuria of unknown cause Smoker Arthritis Back pain Diabetes GERD (gastroesophageal reflux disease) Fibromyalgia Anxiety and depression MARK on CPAP Chronic sinusitis Asthma Elevated cholesterol HTN (hypertension) Surgical History Hx of cystoscopy S/P lumpectomy of breast (04/20/21) Hx of colonoscopy Hx of dilation and curettage H/O tubal ligation History of skin graft Family History Father No problems noted. Mother No problems noted. 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 Female Reproductive History Menstrual Age of Menarche: 14 Review of Systems Const All systems reviewed & are unremarkable except as noted in HPI and below Reports no additional complaints ENT Reports Normal hearing present Card Denies chest pain, Denies chest pain at rest, Denies chest pain with activity and Denies pedal edema Resp Denies cough GI Denies abdominal pain Musc Denies abnormal gait, Denies muscle cramps and Denies radiating pain into limb Skin/Breast Denies skin ulcer and Denies wounds Neuro Reports Normal hearing present and Denies abnormal gait Psych Reports no additional complaints Physical Exam Vital Signs: BMI result Body Mass Index 38.0 Const General: cooperative, healthy appearing and comfortable Orientation/consciousness: oriented to person, oriented to place and oriented to time HEENT Head: Yes normal to inspection Neck Neck: Yes normal visual inspection Carotids: no bruits Chest Chest palpation & inspection: normal inspection of the chest Resp Effort & Inspection: normal respiratory effort and able to speak in complete sentences Auscultation: clear to auscultation bilaterally, no crackles, no rales, no rhonchi and no wheezes Cardio Rate: regular rate Rhythm: regular rhythm Heart sounds: S1 normal heart sound present and S2 normal heart sound present Bruits: no carotid bruits Peripheral pulses: Peripheral pulses 2+ throughout GI Inspection: Yes normal to inspection Skin Wounds: no wounds Hair: normal Neuro General: oriented to person, oriented to place and oriented to time Cranial nerves: Yes CN's II-XII intact bilaterally and Yes Normal hearing present Cognition (Neuro): normal cognition Motor exam (neuro): 5/5 motor strength present throughout Extrem Other: venous exam: No significant superficial varicosities or spider telangiectasias, minimal edema General: No clubbing, No cyanosis and No edema Psych Appearance: grossly normal Mental Status: mental status grossly normal Speech and movement: Normal speech and movement present Results Reviewed Results Reviewed: Brief summary of venous insufficiency testing is as follows: right great saphenous vein: negative right small saphenous vein: negative right accessory vein: none present left great saphenous vein: negative left small saphenous vein: negative left accessory vein: none present Please note there is no evidence of any venous aneurysms or significant tortuosity Assessment & Plan Assessment & Plan (1) Varicose veins of both lower extremities with inflammation: Code(s): I83.11 - Varicose veins of right lower extremity with inflammation; I83.12 - Varicose veins of left lower extremity with inflammation Category: Medical Plan: In short patient is negative for any significant venous insufficiency. I do believe this may be more neuropathic in nature due to her longstanding history of diabetes in addition to her fibromyalgia. She will follow up with us on an as-needed basis. Thank you for allowing us to assist in her care. If there are any questions or concerns please do not hesitate to contact us. The patient had an opportunity to ask questions regarding the treatment plan. All questions were answered. Imaging studies, laboratory studies and physical exam results were discussed and reviewed in detail. No major barriers to understanding were identified. The patient expressed understanding and agreement with the above treatment plan. The patient is aware they should contact our office by phone for worsening of the current condition or the appearance of new symptoms. Thank you for allowing me to participate in the vascular care of this patient. If you have any questions or concerns regarding the treatment for the above condition please do not hesitate to contact me. The office telephone contact is [phone]. This note is constructed using voice recognition software. While every effort has been made to ensure accuracy, java sybase developer errors may have been included. Thank you for allowing me to participate in the care of your patient. Yours sincerely, Fredo Bingham MD, FACS, R.P.V.I. Coding Level of Care Code Est Pt Level 4 (55822) Complex EM visit Add On G2211 Diagnoses Varicose veins of both lower extremities with inflammation I83.11; I83.12
--- OUTSIDE RECORDS SUMMARY | 2024-12-04 14:43 | XMS_ITS | Encounter Summary ---
Author Organization [employer] Address [address] [facility] [address] [place] [address] Care Team Providers Care Film Waxer Name Role Phone Pretty Molina MD Primary Care Provide r Guero Burns PharmD Unavailable [phone] Encounter Details Date Type Department Care Team (Late st Contact Info) Description 09/01/2022 Orders Only [facility] [address] [place], [place] [phone] Jocelyn Fleming LPN Social History Tobacco Use [...] 2:00 PM EDT Clinical Support [facility] [address] [place] [address] [phone] Sandra Boyd RN 12/26/2024 3:30 PM EDT Telemedicine [facility] [address] [place], [place] [phone] Guero Burns, PharmD [address] [place], [place] [phone] 01/17/2025 11:00 AM EDT Office Visit [facility] [address] [place], [place] [phone] Pretty Molina MD [address] [place] [address] [phone] documented as of this encounter Visit Diagnoses Not on filedocumented in this encounter Care Teams Film Waxer Relationship Specialty Start Date End Date Pretty Molina MD [address] [place] [address] [phone] PCP - General Family Medicine 12/24/20 Guero Burns, PharmD [address] [place] [address] [phone] Pharmacist Internal Medicine 09/20/24 documented as of this encounter
== END 2024-12-04 13:28 | disposition home or self-care (01) ==
LOC: HO.HVS 13:01
PROVIDERS: PCP Internal Medicine; Visit Provider Surgery Vascular Surgery
DX: I83.11 Varicose veins of right lower extremity with inflammation (principal); I83.12 Varicose veins of left lower extremity with inflammation
CPT/HCPCS: 99214

== ENCOUNTER → 2024-12-04 13:01 | Outpatient (BNVA) | payer MEDICAID, SELFPAY | PROVIDERS: PCP Internal Medicine; Visit Provider Surgery Vascular Surgery | DX: I83.11 Varicose veins of right lower extremity with inflammation (principal); I83.12 Varicose veins of left lower extremity with inflammation | CPT/HCPCS: 99212 ==

== ENCOUNTER 2025-01-29 11:52 | Outpatient (REF) | payer MEDICAID, SELFPAY ==
--- NOTE | ~2025-01-29 | XR_ITS ---
EXAMINATION: XR HIP, RIGHT CLINICAL INFORMATION: new pain COMPARISON: March 25, 2021. TECHNIQUE: AP and oblique views of the right hip. FINDINGS: Sclerosis along the articular surface of the acetabulum with subchondral cyst formation. Asymmetric joint space narrowing. No acute cortical disruption or gross malalignment. Sclerosis and vacuum phenomenon in the inferior right sacroiliac joint. Degenerative changes, mild in the symphysis pubis. XR/XR hip RT min 2V IMPRESSION: Mild to moderate osteoarthrosis/osteoarthritis, right hip. Overall no gross change. Electronically signed by: Yfn Cordova MD 01/29/2025 01:10 PM EDT
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
--- OUTSIDE RECORDS SUMMARY | 2025-01-29 13:22 | XMS_ITS | Encounter Summary ---
Author Organization [employer] Address [address] [facility] [address] [place] [address] Care Team Providers Care Operating Room Technician Name Role Phone Pretty Molina MD Primary Care Provide r Guero Burns PharmD Unavailable [phone] Encounter Details Date Type Department Care Team (Late Contact Info) Description 09/01/2022 Orders Only [facility] [address] [place], [place] [phone] Jocelyn Fleming LPN Social History Tobacco Use [...] Care Team (Late st Contact Info) Description 04/16/2025 1:00 PM EST Clinical Support [facility] [address] [place], [place] [phone] Sandra Byod, TONY documented as of this encounter Visit Diagnoses Not on filedocumented in this encounter Care Teams Operating Room Technician Relationship Specialty Start Date End Date Pretty Molina MD [address] [place], [place] [phone] PCP - General Family Medicine 12/24/20 Guero Burns, PharmD [address] [place] [address] [place] [address] Pharmacist Internal Medicine 09/20/24 documented as of this encounter
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
== END 2025-01-29 11:53 | disposition home or self-care (01) ==
LOC: HO.HHCX 11:52
PROVIDERS: PCP Internal Medicine; Visit Provider Internal Medicine
DX: M25.561 Pain in right knee (principal)
CPT/HCPCS: 73502

== ENCOUNTER → 2025-01-29 12:09 | Outpatient (BNV) | payer MEDICAID, SELFPAY | PROVIDERS: PCP Internal Medicine; Visit Provider Radiology Diagnostic Radiology | DX: M16.11 Unilateral primary osteoarthritis, right hip (principal) | CPT/HCPCS: 73502 ==

== ENCOUNTER 2025-02-12 13:28 | Outpatient (AMB) | payer MEDICAID, SELFPAY ==
[2025-02-12 13:37] VITALS: BP 120/64; PULSE 64; BMI 37.9
--- NOTE | 2025-02-12 13:37 | MHC.OFFVIS ---
Vital Signs 02/12/25 13:37 Height 5 ft 2 in Weight 207 lb 3.752 oz BMI 37.9 BP 120/64 Blood Pressure Location Lt radial Position Sitting Pulse 64 Pulse Source Pulse Oximeter Intake Visit Reasons: 6 month f/u Intake Note: 6 mth f/up Administrative Office Specialist Required: Yes Administrative Office Specialist Name: [id number] Accompanied by: Self / Same As Patient Allergies morphine (MORPHINE) Allergy (Unknown, Verified 12/04/24 13:09) UNKNOWN Medication List - Last Reconciled 02/12/25 by Garrett Braun NP albuterol sulfate 90 mcg/actuation (ProAir HFA) 2 puffs inhalation Q4-6H PRN albuterol sulfate 1 amp inhalation Q6H PRN ammonium lactate 12% topical BEDTIME aspirin (Adult Low Dose Aspirin) 81 mg PO DAILY atorvastatin 80 mg PO BEDTIME bisacodyl 10 mg [place] DAILY PRN bisacodyl (Dulcolax (bisacodyl)) 10 mg (2 x 5 mg) PO BID 2 days blood sugar diagnostic (FreeStyle Lite Strips) As directed carvedilol 6.25 mg PO BID celecoxib (Celebrex) 200 mg PO QAM cetirizine (Allergy Relief (cetirizine)) 10 mg PO QAM cholecalciferol (vitamin D3) (Vitamin D3) 1 cap PO QAM cyclobenzaprine 10 mg (2 x 5 mg) PO TID PRN cyclosporine 0.05% (Restasis) 1 drp ophthalmic (eye) BID diclofenac sodium 1% 2 grams topical Q12H docusate sodium (Colace) 200 mg (2 x 100 mg) PO BEDTIME 30 days dulaglutide (Trulicity) mg subcut QWEEK duloxetine (Cymbalta) 60 mg PO QAM empagliflozin (Jardiance) 25 mg PO QAM estradiol 0.01%(0.1mg/gram) 1 g vaginal 2XW ezetimibe 10 mg PO DAILY fluoride (sodium) 1.1% (SF 5000 Plus) 1 appl dental BID fluticasone propionate 50 mcg/actuation (Flonase Allergy Relief) 2 sprays intranasal DAILY hydrocortisone 2.5% (Proctozone-HC) 1 appl IL BEDTIME PRN hydroxyzine pamoate 25 - 50 mg (1 - 2 x 25 mg) PO BEDTIME ketoconazole 2% 1 appl topical BID lancets (TRUEplus Lancets) As directed linaclotide (Linzess) 145 mcg PO DAILY loratadine (Claritin) 10 mg PO DAILY PRN losartan 100 mg PO QAM metformin 1,000 mg PO BID mirabegron ER (Myrbetriq) 50 mg PO DAILY naloxone 4 mg/actuation 1 spray intranasal DAILY PRN nifedipine ER 60 mg PO DAILY omeprazole 20 mg PO QAM oxycodone-acetaminophen 5-325 mg (Endocet) 1 tab PO BID PRN risperidone (Risperdal) 2 mg PO BEDTIME sennosides (senna) 17.2 mg (2 x 8.6 mg) PO BEDTIME triamcinolone acetonide 0.1% topical HPI Comments Details: This is a 64-year-old female patient coming in for a follow-up visit. Patient is Pashto-speaking and a race relations professor was used throughout the visit. Patient with a history of hypertension, diabetes, dyslipidemia, and multiple episodes of Mobitz type 1 second-degree AV block with intermittent junctional rhythm on Holter from 2021. Today, patient is reporting feeling well overall without any cardiac symptoms of exertional chest pain, shortness of breath, palpitations, dizziness, orthopnea, PND, leg edema, presyncope or syncope. Patient is reporting compliance with all her medications. Today is main complaint with the patient is numbness in bilateral forearms which resolves after patient urinates. Patient is following with the primary care regards to this. [facility] Medical History Subcutaneous mass Asymmetric septal hypertrophy Heart block atrioventricular Chronic pain Depression Vascular insufficiency Lichen Hip pain Foot pain Foot callus Cubital tunnel syndrome Chronic vulvovaginitis Carpal tunnel syndrome Burn scar contracture of upper arm Blurring of visual image Mood disorder Hyperlipidemia Renal cyst Hematuria of unknown cause Smoker Arthritis Back pain Diabetes GERD (gastroesophageal reflux disease) Fibromyalgia Anxiety and depression MARK on CPAP Chronic sinusitis Asthma Elevated cholesterol HTN (hypertension) Surgical History Hx of cystoscopy S/P lumpectomy of breast (04/20/21) Hx of colonoscopy Hx of dilation and curettage H/O tubal ligation History of skin graft Family History Father No problems noted. Mother No problems noted. 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 Female Reproductive History Menstrual Age of Menarche: 14 Review of Systems Const Denies chills, Denies fatigue, Denies fever(s), Denies frequent falls, Denies weakness, Denies weight gain and Denies weight loss ENT Denies dizziness Card Denies chest pain, Denies leg edema, Denies lightheadedness, Denies palpitations, Denies dyspnea and Denies dyspnea on exertion Resp Denies cough, Denies dyspnea and Denies dyspnea on exertion GI Denies hematochezia Musc Denies abnormal gait, Denies muscle weakness, Denies numbness, Denies radiating pain into limb and Denies tingling Neuro Denies abnormal gait, Denies dizziness, Denies frequent falls, Denies numbness, Denies tingling and Denies weakness Endo Denies fatigue and Denies palpitations Physical Exam Vital Signs: Last Vital Signs Pulse 64 02/12/25 13:37 BP 120/64 02/12/25 13:37 BMI result Body Mass Index 37.9 Const General: cooperative, healthy appearing, comfortable and no acute distress Orientation/consciousness: patient oriented x3 HEENT Head: Yes normal to inspection Neck Neck: Yes normal visual inspection, Yes trachea midline and Yes supple Chest Chest palpation & inspection: normal inspection of the chest Resp Effort & Inspection: normal respiratory effort Auscultation: clear to auscultation bilaterally, no crackles, no rales, no rhonchi and no wheezes Cardio Jugular venous distension: no JVD Palpation: normal PMI Rate: regular rate Rhythm: regular rhythm Heart sounds: S1 normal heart sound present, S2 normal heart sound present, no click, no gallops, no murmurs and no rubs Peripheral pulses: Peripheral pulses 2+ throughout GI Inspection: Yes normal to inspection Palpation (GI): Soft to palpation Auscultation: normal bowel sounds Skin General skin exam: no rashes or lesions noted Neuro General: patient oriented x3 Extrem General: Yes normal to inspection, No no pedal edema and No calf tenderness Psych Appearance: grossly normal Mental Status: mental status grossly normal Speech and movement: Normal speech and movement present Assessment & Plan Assessment & Plan (1) Heart block atrioventricular: Code(s): I44.30 - Unspecified atrioventricular block Category: Medical Plan: Holter monitor back November of 2021 showed multiple episodes of Mobitz type 1 2nd degree AV block with intermittent junctional rhythm in the senior product development scientist hours. Clinically stable and without any symptoms. We can plan to repeat a Holter at the next visit. If needed, we can slowly come off carvedilol. (2) Asymmetric septal hypertrophy: Code(s): I42.2 - Other hypertrophic cardiomyopathy Category: Medical Plan: 08/21/2024-echo study showed a normal LV systolic function with an ejection fraction at 56%, with moderate septal asymmetric hypertrophy, and mild calcification of the aortic valve. (3) Essential hypertension: Code(s): I10 - Essential (primary) hypertension Category: Medical Plan: Blood pressure today is well-controlled. Continue current regimen with a blood pressure goal less than 130/80. Advised monitoring blood pressures at home and maintaining a log of it. (4) Hyperlipidemia: Code(s): E78.5 - Hyperlipidemia, unspecified Category: Medical Plan: 08/02/2024-coronary CTA showed minimal stenosis in the mid left main, minimal stenosis at the origin of the ramus. 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 Multiple risk factors. Most recent LDL at 81, ideally goal for her LDL less than 70. Continue statin and Zetia therapy. We will repeat lipid panel in the next 3 months. (5) Diabetes: Code(s): E11.9 - Type 2 diabetes mellitus without complications Category: Medical Plan: Continue aggressive diabetes management with an A1c goal less than 7%. Advised heart healthy diet, regular exercise, losing weight, aggressive management of diabetes, blood pressure, cholesterol. Patient will follow up in 1 year, sooner if needed. Interim, patient will call us with any concerns. This note was generated using voice recognition software. While every effort has been made to ensure accuracy and proper compress machine operator, there may be occasional errors that could affect the content or meaning of the described symptoms. Orders: Orders Lipid Panel Today E78.5 - Hyperlipidemia, unspecified Coding Level of Care Code Est Pt Level 4 (82759) Complex EM visit Add On G2211 Diagnoses Heart block atrioventricular I44.30 Asymmetric septal hypertrophy I42.2 Essential hypertension I10 Hyperlipidemia E78.5 Diabetes E11.9 Time Spent (min) 32 Comment Time spent in reviewing the chart, test results, assessment, counseling and documentation.
--- OUTSIDE RECORDS SUMMARY | 2025-02-12 14:45 | XMS_ITS | Encounter Summary ---
Author Organization [employer] Address [address] [place] [address] Care Team Providers Care Airport Shuttle Driver Name Role Phone Pretty Molina MD Primary Care Provide r Guero Burns PharmD Unavailable [phone] Encounter Details Date Type Department Care Team (Late Contact Info) Description 09/01/2022 Orders Only [facility] CH[facility] MED & PEDS [address] [place], [place] [phone] Jocelyn Fleming LPN Social History Tobacco Use [...] Description 04/16/2025 1:00 PM EST Clinical Support [facility] MEDICINE [address] [place], [place] [phone] Sandra Boyd, TONY documented as of this encounter Visit Diagnoses Not on filedocumented in this encounter Care Teams Airport Shuttle Driver Relationship Specialty Start Date End Date Pretty Molina MD [address] [place], [place] [phone] PCP - General Family Medicine 12/24/20 Guero Burns, PharmD [address] [place] [address] [place] [address] Pharmacist Internal Medicine 09/20/24 documented as of this encounter
--- OUTSIDE RECORDS SUMMARY | 2025-02-12 14:45 | XMS_ITS | Encounter Summary ---
Author Organization [employer] [facility] Address [address] [place] [address] [address] [place] [address] Care Team Providers Care Workers Compensation Defense Attorney Name Role Phone Pretty Molina MD Primary Care Provide r Guero Burns PharmD Unavailable Encounter Details Date Type Department Care Team (Late st Contact Info) Description 07/01/2022 Orders Only [address] [address] Marti Cedillo RN Chronically on opiate therapy [...] Description 04/16/2025 1:00 PM EST Clinical Support [facility] [address] [place] [address] Sandra Boyd RN documented as of this encounter Visit Diagnoses Diagnosis Chronically on opiate therapy- Primary documented in this encounter Care Teams Workers Compensation Defense Attorney Relationship Specialty Start Date End Date Pretty Molina MD [address] [place] [id number] PCP - General Family Medicine 12/24/20 Guero Burns, PharmD [address] [place] [address] Pharmacist Internal Medicine 09/20/24 documented as of this encounter
--- OUTSIDE RECORDS SUMMARY | 2025-02-12 14:45 | XMS_ITS | Encounter Summary ---
Author Organization [employer] Address [address] [facility] [address]t [place] [address] Care Team Providers Care Exerciser Name Role Phone Pretty Molina MD Primary Care Provide r Guero Burns PharmD Unavailable [phone] Reason for Visit * Reason Comments Med Refill Encounter Details Date Type Department Care Team ([facility] st Contact Info) Description 05/09/2023 Refill [facility] MEDICINE [address] [place] [address] Pretty Molina MD [address] [place] [address] Other chronic pain Social History Tobacco Use [...] Description 04/16/2025 1:00 PM EST Clinical Support [facility] MEDICINE [address] [place] [address] Sandra Boyd, TONY documented as of this encounter Visit Diagnoses Diagnosis Other chronic pain documented in this encounter Additional Health Concerns Assessment Noted Time PHQ-9 Depression Total Score: 12 023 3:08 PM EDT documented as of this encounter Care Teams Exerciser Relationship Specialty Start Date End Date Pretty Molina MD [address] [place] [address] PCP - General Family Medicine 12/24/20 Guero Burns, PoloD [address] [place] [address] Pharmacist Internal Medicine 09/20/24 documented as of this encounter
--- OUTSIDE RECORDS SUMMARY | 2025-02-12 14:45 | XMS_ITS | Encounter Summary ---
Author Organization [employer] Address [address] [facility] [address] [place] [address] Care Team Providers Care Senior Mobile Solutions Architect Name Role Phone Pretty Molina MD Primary Care Provide r Guero Burns PharmD Unavailable [phone] Reason for Visit * Reason Comments Med Refill Encounter Details Date Type Department Care Team (Late st Contact Info) Description 06/11/2022 Refill [facility] MEDICINE [address] [place] [address] Yasmine Hernandez MD [address] [place], [place] [phone] Chronic pain syndrome Social History Tobacco Use [...] Cedillo RN - 06/15/2022 10:45 AM EST Range Ecologist ck 06/15/22. documented in this encounter Plan of Treatment Upcoming Encounters Date Type Department Care Team (Late st Contact Info) Description 04/16/2025 1:00 PM EST Clinical Support [facility] MEDICINE [address] [place], [place] [phone] Deb, Sandra, RN documented as of this encounter Visit Diagnoses Diagnosis Chronic pain syndrome documented in this encounter Care Teams Senior Mobile Solutions Architect Relationship Specialty Start Date End Date Pretty Molina MD [address] [place], [place] [phone] PCP - General Family Medicine 12/24/20 Guero Burns PharmD [address] [place] [address] Pharmacist Internal Medicine 09/20/24 documented as of this encounter
--- OUTSIDE RECORDS SUMMARY | 2025-02-12 14:45 | XMS_ITS | Encounter Summary ---
Author Organization [employer] Address [address] [place] [address] [address] [place] [address] Care Team Providers Care Sausage Grinder Name Role Phone Pretty Molina MD Primary Care Provide r Guero Burns PharmD Unavailable [phone] Encounter Details Date Type Department Care Team (Latest Contact Info) Description 04/21/2020 Abstract [facility] CONVERSIONS Dental, Provider, DDS Social History [...] 1:00 PM EST Clinical Support [facility] MEDICINE [address] [place] [address] Sandra Boyd, TONY documented as of this encounter Visit Diagnoses Not on filedocumented in this encounter Care Teams Sausage Grinder Relationship Specialty Start Date End Date Pretty Molina MD [address] [place] [address] PCP - General Family Medicine 12/24/20 Guero Burns, PharmD [address] [place] [address] Pharmacist Internal Medicine 09/20/24 documented as of this encounter
--- OUTSIDE RECORDS SUMMARY | 2025-02-12 14:45 | XMS_ITS | Encounter Summary ---
Author Organization [employer] Address [address] [facility] [address] [place] [address] Care Team Providers Care German Professor Name Role Phone Pretty Molina MD Primary Care Provide r Guero Burns PharmD Unavailable [phone] Encounter Details Date Type Department Care Team (Latest Contact Info) Description 05/31/2019 Abstract [facility] CONVERSIONS Dental, Provider, DDS Social History [...] Description 04/16/2025 1:00 PM EST Clinical Support [facility] MEDICINE [address] [place] [address] Sandra Boyd, TONY documented as of this encounter Visit Diagnoses Not on filedocumented in this encounter Care Teams German Professor Relationship Specialty Start Date End Date Pretty Molina MD [address] [place] [address] PCP - General Family Medicine 12/24/20 Guero Burns, PharmD [address] [place] [address] Pharmacist Internal Medicine 09/20/24 documented as of this encounter
--- OUTSIDE RECORDS SUMMARY | 2025-02-12 14:45 | XMS_ITS | Encounter Summary ---
Author Organization [employer] Address [address] [facility] 7t [place] [address] Care Team Providers Care Turkey Boner Name Role Phone Pretty Molina MD Primary Care Provide r Guero Burns PharmD Unavailable [phone] Reason for Visit * Reason Comments Med Refill Encounter Details Date Type Department Care Team ([facility] st Contact Info) Description 06/06/2024 Refill [facility] CHC MED & PEDS [address] [place] [address] Pretty Molina MD [address] [place] [address] Type 2 diabetes mellitus with hyperglycemia, without long-term current use of insulin ([facility]) Social History Tobacco Use Types Packs/Day [...] Description 04/16/2025 1:00 PM EST Clinical Support [facility] MEDICINE [address] [place] [address] Sandra Boyd, TONY documented as of this encounter Visit Diagnoses Diagnosis Type 2 diabetes mellitus with hyperglycemia, without long-term current use of insulin ([facility]) documented in this encounter Additional Health Concerns Assessment Noted Time PHQ-9 Depression Total Score: 4 01/06/20 24 2:22 PM EDT documented as of this encounter Care Teams Turkey Boner Relationship Specialty Start Date End Date Pretty Molina MD [address] [place] [address] PCP - General Family Medicine 12/24/20 Guero Burns PharmD [address] [place] [address] Pharmacist Internal Medicine 09/20/24 documented as of this encounter
--- OUTSIDE RECORDS SUMMARY | 2025-02-12 14:45 | XMS_ITS | Encounter Summary ---
Author Organization [employer] Address [address] [facility] [address] [place] [address] Care Team Providers Care Central Office Equipment Engineer Name Role Phone Pretty Molina MD Primary Care Provide r Guero Burns PharmD Unavailable [phone] Reason for Visit * Reason Comments Med Refill Encounter Details Date Type Department Care Team ([facility] st Contact Info) Description 05/12/2023 Refill [facility] CH[facility] MED & PEDS [address] [place] [address] Pretty Molina MD [address] [place] [address] Neuropathy Social History Tobacco Use Types Packs/Day [...] Description 04/16/2025 1:00 PM EST Clinical Support [facility] MEDICINE [address] [place] [address] Sandra Boyd RN documented as of this encounter Visit Diagnoses Diagnosis Neuropathy Mononeuritis of unspecified site documented in this encounter Additional Health Concerns Assessment Noted Time PHQ-9 Depression Total Score: 12 023 3:08 PM EDT documented as of this encounter Care Teams Central Office Equipment Engineer Relationship Specialty Start Date End Date Pretty Molina MD [address] [place] [address] PCP - General Family Medicine 12/24/20 Guero Burns PharmD [address] [place] [address] Pharmacist Internal Medicine 09/20/24 documented as of this encounter
--- OUTSIDE RECORDS SUMMARY | 2025-02-12 14:45 | XMS_ITS | Encounter Summary ---
Author Organization [employer] Address [address] [facility] [address] [place] [address] Care Team Providers Care Buckle Attaching Machine Operator Name Role Phone Pretty Molina MD Primary Care Provide r Guero Burns PharmD Unavailable [phone] Reason for Visit * Reason Onset Date Comments Med Refill 06/10/2022 Encounter Details Date Type Department Care Team (Late st Contact Info) Description 06/10/2022 Refill [facility] MEDICINE [address] [place] [address] Pretty Molina MD [address] [place] [address] Social History Tobacco Use Types Packs/Day Years Used Date Smoking Tobacco: Never Assessed Comments Unknown Sex and Gender Information Value Date Recorded Sex Assigned at Female 04/12/2022 10:19 AM EDT Legal Sex Female 10:19 AM EDT Gender Identity Female 04/12/2022 10:19 AM EDT Sexual Orientation Straight 04/12/2022 10 :19 AM EDT documented as of this encounter Miscellaneous Notes * Telephone Encounter - Willis Ghsoh - 06/10/2022 9:22 AM EST Tc from pt requesting med refill (oxycodone HCl/acetaminophen) 5 mg-325 mg take 1 tablet by oral route twice daily as needed ) documented in this encounter Plan of Treatment Upcoming Encounters Date Type Department Care Team (Late st Contact Info) Description 04/16/2025 1:00 PM EST Clinical Support [facility] MEDICINE [address] [place] [address] Sandra Boyd, TONY documented as of this encounter Visit Diagnoses Not on filedocumented in this encounter Care Teams Buckle Attaching Machine Operator Relationship Specialty Start Date End Date Pretty Molina MD [address] [place] [address] PCP - General Family Medicine 12/24/20 Guero Burns, PoloD [address] [place] [address] Pharmacist Internal Medicine 09/20/24 documented as of this encounter
--- OUTSIDE RECORDS SUMMARY | 2025-02-12 14:45 | XMS_ITS | Encounter Summary ---
Author Organization [employer] Address [address] [facility] 7t [place] [address] Care Team Providers Care Director Medical Affairs Name Role Phone Pretty Molina MD Primary Care Provide r Guero Burns PharmD Unavailable [phone] Reason for Visit * Reason Comments Med Refill Encounter Details Date Type Department Care Team ([facility] st Contact Info) Description 07/01/2024 Refill [facility] MEDICINE [address] [place] [address] Keysha Nagel, YOLETTE [address] [place] [address] Social History Tobacco Use Types Packs/Day Years [...] Description 04/16/2025 1:00 PM EST Clinical Support [facility] MEDICINE [address] [place] [address] Sandra Boyd, RN documented as of this encounter Visit Diagnoses Not on filedocumented in this encounter Additional Health Concerns Assessment Noted Time PHQ-9 Depression Total Score: 4 01/06/20 24 2:22 PM EDT documented as of this encounter Care Teams Director Medical Affairs Relationship Specialty Start Date End Date Pretty Molina MD [address] [place] [address] PCP - General Family Medicine 12/24/20 Guero Burns, PoloD [address] [place] [address] Pharmacist Internal Medicine 09/20/24 documented as of this encounter
--- OUTSIDE RECORDS SUMMARY | 2025-02-12 14:45 | XMS_ITS | Encounter Summary ---
Author Organization [employer] Address [address] [facility] 7t [place] [address] Care Team Providers Care Fire Sprinkler Fitter Name Role Phone Pretty Molina MD Primary Care Provide r Guero Burns PharmD Unavailable [phone] Reason for Visit * Reason Comments Med Refill Encounter Details Date Type Department Care Team ([facility] st Contact Info) Description 07/05/2023 Refill [facility] CHC MED & PEDS [address] [place] [address] Pretty Molina MD [address] [place] [address] Social History Tobacco Use Types Packs/Day Years [...] Description 04/16/2025 1:00 PM EST Clinical Support [facility] MEDICINE [address] [place] [address] Sandra Boyd, TONY documented as of this encounter Visit Diagnoses Not on filedocumented in this encounter Additional Health Concerns Assessment Noted Time PHQ-9 Depression Total Score: 12 023 3:08 PM EDT documented as of this encounter Care Teams Fire Sprinkler Fitter Relationship Specialty Start Date End Date Pretty Molina MD [address] [place] [address] PCP - General Family Medicine 12/24/20 Guero Burns, PoloD [address] [place] [address] Pharmacist Internal Medicine 09/20/24 documented as of this encounter
--- OUTSIDE RECORDS SUMMARY | 2025-02-12 14:45 | XMS_ITS | Encounter Summary ---
Author Organization [employer] Address 75 [facility] [address] [place] [address] Care Team Providers Care Roller Machine Operator Name Role Phone Pretty Molina MD Primary Care Provide r Guero Burns PharmD Unavailable [phone] Encounter Details Date Type Department Care Team (Late st Contact Info) Description 07/12/2022 Orders Only [facility] CHC MED & PEDS [address] [place], [place] [phone] Jocelyn Fleming LPN Social History Tobacco Use [...] Description 04/16/2025 1:00 PM EST Clinical Support [facility] MEDICINE [address] [place] [address] Sandra Boyd, TONY documented as of this encounter Visit Diagnoses Not on filedocumented in this encounter Care Teams Roller Machine Operator Relationship Specialty Start Date End Date Pretty Molina MD [address] [place] [address] PCP - General Family Medicine 12/24/20 Guero Burns, PharmD [address] [place] [address] Pharmacist Internal Medicine 09/20/24 documented as of this encounter
--- OUTSIDE RECORDS SUMMARY | 2025-02-12 14:45 | XMS_ITS | Encounter Summary ---
Author Organization [employer] Address 75 [facility] 7t [place] [address] Care Team Providers Care Wallpaper Embosser Helper Name Role Phone Pretty Molina MD Primary Care Provide r Guero Burns PharmD Unavailable [phone] Reason for Visit * Reason Comments Med Refill Encounter Details Date Type Department Care Team ([facility] st Contact Info) Description 05/10/2023 Refill [facility] MEDICINE [address] [place] [address] Pretty Molina MD [address] [place] [address] Other chronic pain Social History Tobacco Use [...] 1:00 PM EST Clinical Support [facility] MEDICINE [address] [place] [address] Sandra Boyd, TONY documented as of this encounter Visit Diagnoses Diagnosis Other chronic pain documented in this encounter Additional Health Concerns Assessment Noted Time PHQ-9 Depression Total Score: 12 023 3:08 PM EDT documented as of this encounter Care Teams Wallpaper Embosser Helper Relationship Specialty Start Date End Date Pretty Molina MD [address] [place] [address] PCP - General Family Medicine 12/24/20 Guero Burns, PoloD [address] [place] [address] Pharmacist Internal Medicine 09/20/24 documented as of this encounter
--- OUTSIDE RECORDS SUMMARY | 2025-02-12 14:45 | XMS_ITS | Encounter Summary ---
Author Organization [employer] Address 75 [facility] [address] [place] [address] Care Team Providers Care Bridge Operator Slip Name Role Phone Pretty Molina MD Primary Care Provide r Guero Burns PharmD Unavailable [phone] Encounter Details Date Type Department Care Team (Latest Contact Info) Description 2019 Abstract [facility] CONVERSIONS Dental, Provider, DDS Social [...] Description 04/16/2025 1:00 PM EST Clinical Support [facility] MEDICINE 230 [place] [address] Sandra Boyd, TONY documented as of this encounter Visit Diagnoses Not on filedocumented in this encounter Care Teams Bridge Operator Slip Relationship Specialty Start Date End Date Pretty Molina MD 230 [place] [address] PCP - General Family Medicine 12/24/20 Guero Burns, PharmD [address] [place] [address] Pharmacist Internal Medicine 09/20/24 documented as of this encounter
--- OUTSIDE RECORDS SUMMARY | 2025-02-12 14:45 | XMS_ITS | Encounter Summary ---
Author Organization [facility] [employer] Address 75 [facility] 7t [place] [address] Care Team Providers Care Supervisory Geographer Name Role Phone Pretty Molina MD Primary Care Provide r Guero Burns PharmD Unavailable [phone] Reason for Visit * Reason Comments Med Refill Encounter Details Date Type Department Care Team ([facility] st Contact Info) Description 05/02/2023 Refill [facility] MEDICINE [address] [place] [address] Jocelyn Bender DO [address] [place], [place] [phone] Seasonal allergic rhinitis, unspecified trigger Social History [...] Description 04/16/2025 1:00 PM EST Clinical Support [facility] MEDICINE [address] [place] [address] Sandra Boyd RN documented as of this encounter Visit Diagnoses Diagnosis Seasonal allergic rhinitis, unspecified trigger documented in this encounter Additional Health Concerns Assessment Noted Time PHQ-9 Depression Total Score: 12 023 3:08 PM EDT documented as of this encounter Care Teams Supervisory Geographer Relationship Specialty Start Date End Date Pretty Molina MD [address] [place] [address] PCP - General Family Medicine 12/24/20 Guero Burns, Mario [address] [place] [address] Pharmacist Internal Medicine 09/20/24 documented as of this encounter
--- OUTSIDE RECORDS SUMMARY | 2025-02-12 14:45 | XMS_ITS | Encounter Summary ---
Author Organization [employer] Address 75 [facility] 7t [place] [address] Care Team Providers Care Coding Compliance Manager Name Role Phone Pretty Molina MD Primary Care Provide r Guero Burns PharmD Unavailable [phone] Reason for Visit * Reason Comments Med Refill Encounter Details Date Type Department Care Team (Late st Contact Info) Description 09/21/2024 Refill [facility] MEDICINE [address] [place] [address] Pretty Molina MD [address] [place] [address] Type 2 diabetes mellitus with hyperglycemia, without long-term current use of insulin ([facility]) Social History Tobacco Use Types Packs/Day Years Used Date Smoking Tobacco: Every Day Cigarettes 0.8 35.7 Started: 1989 Passive Smoke Exposure: Current Smokeless [...] Description 04/16/2025 1:00 PM EST Clinical Support [facility] MEDICINE [address] [place] [address] Sandra Boyd, RN documented as of this encounter Visit Diagnoses Diagnosis Type 2 diabetes mellitus with hyperglycemia, without long-term current use of insulin ([facility]) documented in this encounter Additional Health Concerns Assessment Noted Time PHQ-9 Depression Total Score: 4 01/06/20 24 2:22 PM EDT documented as of this encounter Care Teams Coding Compliance Manager Relationship Specialty Start Date End Date Pretty Molina MD [address] [place] [address] PCP - General Family Medicine 12/24/20 Guero Burns, PoloD [address] [place] [address] Pharmacist Internal Medicine 09/20/24 documented as of this encounter
--- OUTSIDE RECORDS SUMMARY | 2025-02-12 14:46 | XMS_ITS | Encounter Summary ---
Author Organization [employer] Address 75 [facility] 7t [place] [address] Care Team Providers Care Sand Slinger Name Role Phone Pretty Molina MD Primary Care Provide r Guero Burns PharmD Unavailable [phone] Reason for Visit * Reason Onset Date Comments Nurse Triage 04/26/2024 Encounter Details Date Type Department Care Team (Late st Contact Info) Description 04/26/2024 Telephone [facility] MEDICINE 230 [place] [address] Pretty Molina MD [address] [place] [address] Nurse Triage Social History Tobacco Use Types [...] 12:18 PM EST Please obtain note from [facility] ED visit 04/24/24, Upcoming appt with PCP tomorrow at 11am. * Telephone Encounter - Valeria Hooper LPN - 04/26/2024 11:58 AM EST Triage call returned with BLS #[id number] Yonathan. Patient reports that she was seen on 04/19/24. Patient is reporting following her Flu shot she has been feeling delicate . Chart shows Flu given in March. Call dropped. Return call with Phonograph Cartridge Assembler Neto Rodgers78. Patient reports seen at [facility] and not improved with cough and congestion. Has no reported fever. Patient then reports presented to [facility] ED on 04/24/24 and was [...] caller accepted this outcome. Contact pt at [phone] documented in this encounter Plan of Treatment Upcoming Encounters Date Type Department Care Team (Late st Contact Info) Description 04/16/2025 1:00 PM EST Clinical Support [facility] MEDICINE [address] [place] [address] Sandra Boyd RN documented as of this encounter Visit Diagnoses Not on filedocumented in this encounter Additional Health Concerns Assessment Noted Time PHQ-9 Depression Total Score: 4 01/06/20 24 2:22 PM EDT documented as of this encounter Care Teams Sand Slinger Relationship Specialty Start Date End Date Pretty Molina MD [address] [place] [address] PCP - General Family Medicine 12/24/20 Guero Burns, Mario [address] [place] [address] Pharmacist Internal Medicine 09/20/24 documented as of this encounter
--- OUTSIDE RECORDS SUMMARY | 2025-02-12 14:46 | XMS_ITS | Encounter Summary ---
Author Organization [employer] Address 75 [facility] 7t [place] [address] Care Team Providers Care Collar Tailor Name Role Phone Pretty Molina MD Primary Care Provide r Guero Burns PharmD Unavailable [phone] Reason for Visit * Reason Comments Med Refill Encounter Details Date Type Department Care Team ([facility] st Contact Info) Description 03/23/2023 Refill [facility] CHC MED & PEDS [address] [place] [address] Pretty Molina MD 230 [place] [address] Neuropathy Social History Tobacco Use Types Packs/Day [...] 04/16/2025 1:00 PM EST Clinical Support [facility] MEDICINE [address] [place] [address] Sandra Boyd RN documented as of this encounter Visit Diagnoses Diagnosis Neuropathy Mononeuritis of unspecified site documented in this encounter Additional Health Concerns Assessment Noted Time PHQ-9 Depression Total Score: 12 023 3:08 PM EDT documented as of this encounter Care Teams Collar Tailor Relationship Specialty Start Date End Date Pretty Molina MD [address] [place] [address] PCP - General Family Medicine 12/24/20 Guero Burns PharmD [address] [place] [address] Pharmacist Internal Medicine 09/20/24 documented as of this encounter
--- OUTSIDE RECORDS SUMMARY | 2025-02-12 14:46 | XMS_ITS | Encounter Summary ---
Author Organization [employer] Address 75 [facility] 7t [place] [address] Care Team Providers Care Control Panel Builder Name Role Phone Pretty Molina MD Primary Care Provide r Guero Burns PharmD Unavailable [phone] Reason for Visit * Reason Comments Med Refill Encounter Details Date Type Department Care Team ([facility] st Contact Info) Description 04/15/2024 Refill [facility] CHC MED & PEDS [address] [place] [address] Pretty Molina MD 230 [place] [address] Social History Tobacco Use Types Packs/Day Years [...] Description 04/16/2025 1:00 PM EST Clinical Support [facility] MEDICINE [address] [place] [address] Sandra Boyd, RN documented as of this encounter Visit Diagnoses Not on filedocumented in this encounter Additional Health Concerns Assessment Noted Time PHQ-9 Depression Total Score: 4 01/06/20 24 2:22 PM EDT documented as of this encounter Care Teams Control Panel Builder Relationship Specialty Start Date End Date Pretty Molina MD [address] [place] [address] PCP - General Family Medicine 12/24/20 Guero Burns, PoloD [address] [place] [address] Pharmacist Internal Medicine 09/20/24 documented as of this encounter
--- OUTSIDE RECORDS SUMMARY | 2025-02-12 14:46 | XMS_ITS | Encounter Summary ---
Author Organization [email or web address] Address 75 [facility] 7t [place] [address] Care Team Providers Care Community Relations Coordinator Name Role Phone Pretty Molina MD Primary Care Provide r Guero Burns PharmD Unavailable [phone] Reason for Visit * Reason Comments Med Refill Encounter Details Date Type Department Care Team ([facility] st Contact Info) Description 04/21/2024 Refill [facility] MEDICINE [address] [place] [address] Pretty Molina MD [address] [place] [address] Neuropathy Social History Tobacco Use Types Packs/Day [...] Description 04/16/2025 1:00 PM EST Clinical Support [facility] MEDICINE [address] [place] [address] Sandra Boyd, RN documented as of this encounter Visit Diagnoses Diagnosis Neuropathy Mononeuritis of unspecified site documented in this encounter Additional Health Concerns Assessment Noted Time PHQ-9 Depression Total Score: 4 01/06/20 24 2:22 PM EDT documented as of this encounter Care Teams Community Relations Coordinator Relationship Specialty Start Date End Date Pretty Molina MD [address] [place] [address] PCP - General Family Medicine 12/24/20 Guero Burns, Mario [address] [place] [address] Pharmacist Internal Medicine 09/20/24 documented as of this encounter
--- OUTSIDE RECORDS SUMMARY | 2025-02-12 14:46 | XMS_ITS | Encounter Summary ---
Author Organization [employer] Address 75 [facility] 7t [place] [address] Care Team Providers Care Crushing Mill Operator Name Role Phone Pretty Molina MD Primary Care Provide r Guero Burns PharmD Unavailable [phone] Reason for Visit * Reason Onset Date Comments Results 11/14/2024 Encounter Details Date Type Department Care Team (Late st Contact Info) Description 11/14/2024 Telephone [facility] MEDICINE [address] [place] [address] Pretty Molina MD [address] [place], [place] [phone] Results Social History Tobacco Use Types Packs/Day Years [...] encounter Miscellaneous Notes * Telephone Encounter - Ibis Golden RN - 11/14/2024 9:26 AM EDT TC placed to patient [phone] who reports she did not call in regards to obtaining results. Patient called to inquire if she has any upcoming appointments. RN informed patient of PACKING ATTENDANT RN visit on 12/05/24 at 2pm. Patient verbalized understanding and did not have any further questions. Patient to f/u PRN. * Telephone Encounter - Anastacio Montano - 11/14/2024 9:16 AM EDT TC from pt requesting call back regarding Results. Type of results: Labs Date when done: 11/13/24 Facility: [facility] Labs (Czech Speaker) documented in this encounter Plan of Treatment Upcoming Encounters Date Type Department Care Team ([facility] st Contact Info) Description 04/16/2025 1:00 PM EST Clinical Support [facility] MEDICINE [address] [place] [address] Sandra Boyd, RN documented as of this encounter Visit Diagnoses Not on filedocumented in this encounter Additional Health Concerns Assessment Noted Time PHQ-9 Depression Total Score: 4 01/06/20 24 2:22 PM EDT documented as of this encounter Care Teams Crushing Mill Operator Relationship Specialty Start Date End Date Pretty Molina MD [address] [place] [address] PCP - General Family Medicine 12/24/20 Guero Burns, PoloD [address] [place] [address] Pharmacist Internal Medicine 09/20/24 documented as of this encounter
--- OUTSIDE RECORDS SUMMARY | 2025-02-12 14:46 | XMS_ITS | Encounter Summary ---
Author Organization [employer] Address 75 [facility] 7t [place] [address] Care Team Providers Care Pier Hand Helper Name Role Phone Pretty Molina MD Primary Care Provide r Guero Burns PharmD Unavailable [phone] Reason for Visit * Reason Comments Med Refill Encounter Details Date Type Department Care Team (Late st Contact Info) Description 11/24/2022 Refill [facility] ADULT DENTAL [address] [place] [address] Eliezer Richardson, ROBERT [address] [place] [address] Social History Tobacco Use Types Packs/Day Years [...] Description 04/16/2025 1:00 PM EST Clinical Support [facility] MEDICINE [address] [place] [address] Sandra Boyd RN documented as of this encounter Visit Diagnoses Not on filedocumented in this encounter Additional Health Concerns Assessment Noted Time PHQ-9 Depression Total Score: 12 023 3:08 PM EDT documented as of this encounter Care Teams Pier Hand Helper Relationship Specialty Start Date End Date Pretty Molina MD [address] [place] [address] PCP - General Family Medicine 12/24/20 Guero Burns, PoloD [address] [place] [address] Pharmacist Internal Medicine 09/20/24 documented as of this encounter
--- OUTSIDE RECORDS SUMMARY | 2025-02-12 14:46 | XMS_ITS | Encounter Summary ---
Author Organization [employer] Address 75 [facility] 7t [place] [address] Care Team Providers Care Lamp Inspector Name Role Phone Pretty Molina MD Primary Care Provide r Guero Burns PharmD Unavailable [phone] Reason for Visit * Reason Comments Med Refill Encounter Details Date Type Department Care Team ([facility] st Contact Info) Description 10/17/2024 Refill [facility] MEDICINE [address] [place] [address] Pretty Molina MD [address] [place], [place] [phone] Neuropathy Social History Tobacco Use Types Packs/Day [...] Description 04/16/2025 1:00 PM EST Clinical Support [facility] MEDICINE [address] [place] [address] Sandra Boyd, TONY documented as of this encounter Visit Diagnoses Diagnosis Neuropathy Mononeuritis of unspecified site documented in this encounter Additional Health Concerns Assessment Noted Time PHQ-9 Depression Total Score: 4 01/06/20 24 2:22 PM EDT documented as of this encounter Care Teams Lamp Inspector Relationship Specialty Start Date End Date Pretty Molina MD [address] [place] [address] PCP - General Family Medicine 12/24/20 Guero Burns PharmD [address] [place] [address] Pharmacist Internal Medicine 09/20/24 documented as of this encounter
--- OUTSIDE RECORDS SUMMARY | 2025-02-12 14:46 | XMS_ITS | Encounter Summary ---
Author Organization [employer] Address 75 [facility] 7[place] [address] Care Team Providers Care Production Foreman Name Role Phone Pretty Molina MD Primary Care Provide r uGero Burns PharmD Unavailable [phone] Reason for Visit * Reason Comments Med Refill Encounter Details Date Type Department Care Team (Late st Contact Info) Description 02/28/2023 Refill [facility] MEDICINE [address] [place] [address] Pretty Molina MD [address] [place] [address] Social History Tobacco Use Types Packs/Day Years [...] Description 04/16/2025 1:00 PM EST Clinical Support [facility] MEDICINE [address] [place] [address] Sandra Boyd RN documented as of this encounter Visit Diagnoses Not on filedocumented in this encounter Additional Health Concerns Assessment Noted Time PHQ-9 Depression Total Score: 12 023 3:08 PM EDT documented as of this encounter Care Teams Production Foreman Relationship Specialty Start Date End Date Pretty Molina MD [address] [place] [address] PCP - General Family Medicine 12/24/20 Guero Burns, PoloD [address] [place] [address] Pharmacist Internal Medicine 09/20/24 documented as of this encounter
--- OUTSIDE RECORDS SUMMARY | 2025-02-12 14:46 | XMS_ITS | Encounter Summary ---
Author Organization [employer] Address 75 [facility] 7t [place] [address] Care Team Providers Care Body Care Manager Name Role Phone Pretty Molina MD Primary Care Provide r Guero Burns PharmD Unavailable [phone] Reason for Visit * Reason Comments Med Refill Encounter Details Date Type Department Care Team ([facility] st Contact Info) Description 03/30/2023 Refill [facility] MEDICINE [address] [place] [address] Pretty Molina MD [address] [place] [address] Other chronic pain Social History Tobacco Use [...] Description 04/16/2025 1:00 PM EST Clinical Support [facility] MEDICINE [address] [place] [address] Sandra Boyd, TONY documented as of this encounter Visit Diagnoses Diagnosis Other chronic pain documented in this encounter Additional Health Concerns Assessment Noted Time PHQ-9 Depression Total Score: 12 023 3:08 PM EDT documented as of this encounter Care Teams Body Care Manager Relationship Specialty Start Date End Date Pretty Molina MD [address] [place] [address] PCP - General Family Medicine 12/24/20 Guero Burns, PoloD [address] [place] [address] Pharmacist Internal Medicine 09/20/24 documented as of this encounter
--- OUTSIDE RECORDS SUMMARY | 2025-02-12 14:46 | XMS_ITS | Clinical Summary ---
Author Organization [address] [facility] Address [address] [place] [address] Phone Care Team Providers Care Metal Roaster Name Role Phone Pretty Molina MD Primary [...] by mouth 2 times daily. Active ceramide 1,3,4-DH-nwfq-hyal ur (CeraVe PM) lotion,extended release Apply topically. [...] testing completed and was unremarkable Morbid obesity ([facility] V24, [facility] V28) 2018 Type 2 diabetes mellitus ([facility] V24, [facility] V 28) 01/23/2019 Surgical History Surgery Date Site/Laterality Comments TUBAL LIGATION PROCEDURE: HISTORICAL TUBAL LIGATION OTHER SURGICAL HISTORY PROCEDURE: IN GRAFT COMPOSITE W/PRIMARY CLOSURE DONOR AREA Medical History Medical History Date Comments HTN (hypertension) DX:HTN (hyper tension) Depression DX:Depression Chronic pain DX:Chronic pain Obesity DX:Obesity 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[facility] V24, [facility] V28) DX:Microalbuminuric diabeti c nephropathy ([facility]) Hyperlipidemia DX:Hyperlipidemi a Carpal tunnel syndrome, bilateral DX:Carpal tunnel syndrome, bilateral Type 2 diabetes mellitus ( S/[facility] V24, [facility] V28) DX:Type 2 diabetes mellitus ([facility]) IBS (irritable bowel syndrome) D [...] Annual BMP Blood Test (01/10/2024) Pathologist [facility] Annual BMP Blood Test abstracted [facility] Provider HEALTH MAINTENANCE Final Result * Lipid panel (01/10/2024) [facility] Triglycerides 0 mg/dL Comment:no interpretation Cholesterol 0 mg/dL Comment:no interpretation HDL 0 mg/dL Comment:no interpretation LDL Cholesterol 0 mg/dL Comment:no interpretation Blood Venous blood specimen / Unknown [facility] Provider LAB BLOOD ORDERABLES Teresa l Result * Cervical Cancer Screening: HPV (04/18/2023) Pathologist [facility] Cervical Cancer Screening: HPV No interpreta tion,abstr acted [facility] Provider [facility] Final Result * Hemoglobin A1c (07/20/2021) [facility] Hemoglobin A1C 0.0 % Comment:no interpretation Blood Venous blood specimen / Unknown [facility] Provider LAB BLOOD ORDERABLES Teresa l Result from Last 3 Months or Most Recently Relevant to Health Maintenance Insurance MEDICAID - [place] Care Teams Metal Roaster Relationship Specialty Start Date End Date Pretty Molina MD [address] [phone] PCP - General 06/01/23
--- OUTSIDE RECORDS SUMMARY | 2025-02-12 14:46 | XMS_ITS | Encounter Summary ---
Author Organization [employer] Address [address] [place] [address] Care Team Providers Care Clinical Documentation Improvement Specialist Name Role Phone Pretty Molina MD Primary Care Provide r Guero Burns PharmD Unavailable [phone] Reason for Visit * Reason Onset Date Comments Med Refill 01/05/2023 Encounter Details Date Type Department Care Team (Late st Contact Info) Description 01/05/2023 Telephone [facility] [address] [place] [address] Pretty Molina MD [address] [place], [place] [id number] Med Refill Social History Tobacco Use Types [...] Description 04/16/2025 1:00 PM EST Clinical Support [facility] [address] [place] [id number] Sandra Boyd, RN documented as of this encounter Visit Diagnoses Not on filedocumented in this encounter Additional Health Concerns Assessment Noted Time PHQ-9 Depression Total Score: 12 023 3:08 PM EDT documented as of this encounter Care Teams Clinical Documentation Improvement Specialist Relationship Specialty Start Date End Date Pretty Molina MD [address] [place] [id number] PCP - General Family Medicine 12/24/20 Guero Burns, PoloD [address] [place] [id number] Pharmacist Internal Medicine 09/20/24 documented as of this encounter
--- OUTSIDE RECORDS SUMMARY | 2025-02-12 14:46 | XMS_ITS | Encounter Summary ---
Author Organization [employer] Address [address] [facility] [address] [place] [address] Care Team Providers Care Civil Engineering Drafter Name Role Phone Pretty Molina MD Primary Care Provide r Guero Burns PharmD Unavailable [phone] Reason for Visit * Reason Comments Med Refill Encounter Details Date Type Department Care Team ([facility] st Contact Info) Description 12/06/2023 Refill [facility] [address] [place] [address] Pretty Molina MD [address] [place] [address] Other chronic pain Social History Tobacco Use [...] Description 04/16/2025 1:00 PM EST Clinical Support [facility] [address] [place] [address] Sandra Boyd, TONY documented as of this encounter Visit Diagnoses Diagnosis Other chronic pain documented in this encounter Additional Health Concerns Assessment Noted Time PHQ-9 Depression Total Score: 12 023 3:08 PM EDT documented as of this encounter Care Teams Civil Engineering Drafter Relationship Specialty Start Date End Date Pretty Molina MD [address] [place] [address] PCP - General Family Medicine 12/24/20 Guero Burns, PoloD [address] [place] [address] Pharmacist Internal Medicine 09/20/24 documented as of this encounter
--- OUTSIDE RECORDS SUMMARY | 2025-02-12 14:46 | XMS_ITS | Encounter Summary ---
Author Organization [employer] Address [address] [facility] [address] [place] [address] Care Team Providers Care Corner Trimmer Operator Name Role Phone Pretty Molina MD Primary Care Provide r Guero Burns PharmD Unavailable [phone] Encounter Details Date Type Department Care Team (Late Contact Info) Description 11/12/2022 Orders Only [facility] [address] [place] [address] Jocelyn Fleming LPN Social History Tobacco Use [...] Department Care Team (Late Contact Info) Description 04/16/2025 1:00 PM EST Clinical Support [facility] [address] [place] [address] Sandra Boyd, TONY documented as of this encounter Visit Diagnoses Not on filedocumented in this encounter Care Teams Corner Trimmer Operator Relationship Specialty Start Date End Date Pretty Molina MD [address] [place] [address] PCP - General Family Medicine 12/24/20 Guero Burns, PharmD [address] [place] [address] Pharmacist Internal Medicine 09/20/24 documented as of this encounter
--- OUTSIDE RECORDS SUMMARY | 2025-02-12 14:46 | XMS_ITS | Clinical Summary ---
Author Organization [employer] Address [address] 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 Name Role Phone Pretty Molina MD Primary Care Provide r Guero Burns PharmD Unavailable [phone] Allergies Active Allergy Reactions Criticality Noted Date Comments Morphine Palpitations Low 06/25/2022 tachycardia Medications hydrocortisone (Anusol-HC) 2.5 % rectal creamIndication s:Hemorrhoids, unspecified hemorrhoid type Apply a thin layer to affected area(s)twice daily to four times daily as needed 30 g 023 Active Blood Glucose Monitoring Suppl (FreeStyle Lite) w/Device kitIndications: Type 2 diabetes mellitus with hyperglycemia, without long-term current use of insulin ([facility]) 1 kit 2 times daily. To monitor [...] 6 HOURS NEEDED 90 mL 3 Active Aspirin Low Dose 81 MG EC tablet TAKE 1 TABLET BY MOUTH EVERYDAY AT NOON 90 tablet 3 Active metFORMIN (Glucophage) 1000 MG tablet TAKE 1 TABLET BY MOUTH TWICE DAILY IN THE MORNING AND IN THE EVENING WITH FOOD 180 tablet 3 Active Alcohol Swabs (Alcohol Prep) 70 % pads TEST BLOOD SUGAR THREE TIMES DAILY 100 each 11 Active NIFEdipine XL (Procardia XL) 60 MG 24 hr tabletIndicatio ns:Essential hypertension TAKE 1 TABLET BY MOUTH EVERYDAY AT NOON 90 tablet 3 Active ammonium lactate (Lac-Hydrin) 12 % lotion [...] 8 [employer] WATER AND DRINK DAILY DIRECTED 025 Active risperiDONE (RisperDAL) 2 MG tablet Take 2 mg by mouth at bedtime. Active triamcinolone (Kenalog) 0.1 % ointment APPLY TOPICALLY TO THE AFFECTED AREA(S) OF BODY TWICE DAILY FOR 2 WEEKS THEN coja un reposo de geoff[place] semana AND USE vaseline THEN NEEDED 025 Active nicotine polacrilex (FT Nicotine) 4 [...] EVERY MORNING 90 tablet 3 025 Active cholecalciferol (D3-1000) 25 MCG (1000 UT) capsuleIndicati ons:Vitamin D deficiency TAKE 1 CAPSULE BY MOUTH EVERY MORNING 90 capsule 1 025 Active fluticasone (Flonase) 50 MCG/ACT nasal sprayIndication s:Cough in adult patient INHALE 2 SPRAYS IN EACH NOSTRIL ONCE DAILY 48 g 1 025 Active omeprazole (PriLOSEC) [address] capsule TAKE 1 CAPSULE BY MOUTH EVERY MORNING 90 capsule 1 025 Active polyvinyl alcohol (Liquifilm Tears) 1.4 % ophthalmic solutionIndicat ions:Dry eye syndrome of bilateral lacrimal glands INSTILL 1 DROP IN EACH EYE THREE TIMES DAILY IN THE MORNING, AT NOON, AND AT BEDTIME NEEDED DRY EYES 15 mL 1 025 Active Dulaglutide (Trulicity) 1.5 MG/0.5ML solution auto-injectorIn dications:Type 2 diabetes mellitus with hyperglycemia, without long-term current use of insulin (CMS/HCC) Inject 1.5 mg under the skin 1 (one) time per week. INJECT ONE PEN (=1.5MG) SUBCUTANEOUSLY ONCE A WEEK 2 mL 3 025 Active Jardiance 25 MGIndications:T ype 2 diabetes mellitus with other specified complication, unspecified whether skilled nursing insulin use ([facility]) TAKE 1 TABLET BY MOUTH EVERY MORNING 30 tablet 5 Active Diclofenac Sodium 1 % gelIndications: Fibromyalgia APPLY 2 GRAMS TOPICALLY TO AFFECTED AREA(S) EVERY TWELVE HOURS 100 g 1 025 Active bisacodyl (Dulcolax) 10 MG suppository INSERT 1 SUPPOSITORY RECTALLY DAILY NEEDED FOR CONSTIPATION 025 Active Linzess 145 MCG capsule Take 1 capsule by mouth Once per day. 025 Active senna (Senokot) 8.6 MG tablet TAKE 2 TABLETS BY MOUTH ONCE DAILY 30 MINUTES BEFORE BEDTIME Active nicotine (Nicoderm CQ) 14 MG/24HR patchIndication s:Tobacco dependence Place 1 patch on the skin 1 (one) time each day at the same time. 21 patch Active albuterol (Ventolin HFA) 108 (90 Base) MCG/ACT inhaler INHALE 2 PUFFS EVERY 4 TO 6 HOURS NEEDED 18 g 3 025 Active hydroCHLOROthia zide 12.5 MG tabletIndicatio ns:Primary hypertension TAKE 1 TABLET BY MOUTH EVERY MORNING (CALL IF BP CONTINUAMENTE > 140/90) 90 tablet 1 025 Active cetirizine (ZyrTEC) 10 MG tabletIndicatio ns:Seasonal allergies TAKE 1 TABLET BY MOUTH EVERY MORNING 90 tablet 025 Active oxyCODONE-aceta minophen (Percocet) 5-325 MG tabletIndicatio ns:Other chronic pain Take 1 tablet by mouth every 12 (twelve) hours if needed for severe pain for up to 28 days. 56 tablet 025 2024 Active gabapentin (Neurontin) 300 MG capsuleIndicati ons:Neuropathy TAKE 2 CAPSULES BY MOUTH THREE TIMES DAILY IN THE MORNING, EVENING AND BEDTIME 180 capsule 1 025 Active gabapentin (Neurontin) 300 MG [...] eorder (will not trigger notification to Pharmacy)) brompheniramine -pseudoephedrin e-DM 30-2-10 MG/5ML syrupIndication s:Chronic cough Take 5 mL by mouth if needed in the morning, at noon, in the evening, and at bedtime for allergies for up to 10 days. 120 mL 025 2024 Active Problems Problem Noted Date Diagnosed Date Right hip pain 01/17/2025 Primary hypertrophic cardiomyopathy 01/17/2025 Assessment & Plan (01/17/2025 1:13 PM EDT): Continue to follow with cardiology Long-term current use of opiate analgesic 2024 Bladder pain 10/10/2024 Varicose veins of both [...] use of insulin 05/23/2018 Assessment & Plan (01/17/2025 1:11 PM EDT): Diabetes is: controlled - Lab Results Component Value Date HGBA1C 6.4 (A) 01/17/2025 HGBA1C 6.4 (A) 10/10/2024 HGBA1C 6.9 (A) 04/05/2024 - Lab Results Component Value Date MICROALBUR 397.0 10/29/2024 CREATININE 0.90 10/15/2024 -Changes: none - Diabetic eye exam:pending - Diabetic foot exam:pending - Continue lifestyle modifications - Continue current medications - Follow up: 3 months Assessment & Plan (10/10/2024 12:33 PM EDT): [...] Encounters Date Type Department Care Team Description 02/08/2025 Refill [facility] [address] [place] [address] Pretty Molina MD Neuropathy 02/04/2025 Refill [facility] [address] [place] [address] Pretty Molina MD Other chronic pain 01/29/2025 Results Follow-Up [facility] [address] [place] [id number] Pretty Molina MD XR Hip 2 or 3 Views Right 01/29/2025 Orders Only [address] [address] Pretty Molina MD Arthritis of right hip (Primary Dx) 01/17/2025 11:00 AM EDT Office Visit [address] [address] Pretty Molina MD Type 2 diabetes mellitus with hyperglycemia, without long-term current use of insulin (CMS/HCC); Primary hypertrophic cardiomyopathy (CMS/HCC); Moderate persistent asthma with exacerbation; Microalbuminuric diabetic nephropathy (CMS/HCC); Right hip pain; Chronic cough 01/17/[address] [address] Pretty Molina MD Lung Screening Referral 01/17/2025 Travel 01/16/[address] [address] Pretyt Molina MD chart prep 01/09/[address] [address] Pretty Molina MD 01/09/2025 Patient Outreach [address] [address] Pretty Molina MD Pre-visit Planning (SDOH screening negative and tobacco screening negative) 01/02/2025 Refill [facility] [address] [place] [address] Pretty Molina MD Other chronic pain 12/25/2024 Refill [facility] [address] [place], [place] [phone] Noemi Schwartz MD Seasonal allergies 12/16/2024 Refill [facility] [address] [place], [place] [phone] Pretty Molina MD Primary hypertension 12/14/2024 Refill [facility] [address] [place] [address] Pretty Molina MD Neuropathy 12/13/2024 Refill [facility] [address] [place] [address] Pretty Molina MD 12/05/2024 2:00 PM EDT Clinical Support [facility] [address] [place] [address] Sandra Boyd, TONY Long-term current use of opiate analgesic (Primary Dx) 12/05/2024 Telephone [facility] [address] [place] [address] Sandra Boyd RN BPI Scoring 12/05/2024 Travel 12/05/2024 Refill [facility] [address] [place] [address] Pretty Molina MD Other chronic pain 11/27/2024 3:30 PM EDT Telemedicine [facility] [address] [place] [address] Guero Burns, PharmD Tobacco dependence (Primary Dx) 11/27/2024 Orders Only [facility] [address] [place] [address] Pretty Molina MD 11/24/2024 Refill [facility] [address] [place] [address] Pretty Molina MD Fibromyalgia 11/15/2024 Refill [facility] [address] [place] [address] Pretty Molina MD Type 2 diabetes mellitus with other specified complication, unspecified whether manager terminal insulin use ([facility]) 11/14/2024 Telephone [facility] [address] [place] [address] Pretty Molina MD Appointment Request 11/14/2024 Telephone [facility] [address] [place] [address] Pretty Molina MD Results 11/14/2024 Refill [facility] [address] [place] [address] Pretty Molina MD Dry eye syndrome of bilateral lacrimal glands; Type 2 diabetes mellitus with hyperglycemia, without long-term current use of insulin ([facility]) 11/13/2024 Orders Only GENERIC EXTERNAL DATA DEPARTMENT Provider, Generic External Data 11/13/2024 Refill [facility] [address] [place] [address] Pretty Molina MD Type 2 diabetes mellitus with hyperglycemia, without long-term current use of insulin ([facility]) from Last 3 Months Immunizations Immunization Administration [...] uit: Not Asked; Counseling Given: Not Answered Comments:Currently smokes 1/3 PPD. Been a smoker for 35 years, has smoked up to 1 ppd. Alcohol Use Standard Drinks/Week Comments Not Currently 0 (1 standard drink = 0.6 oz pur e alcohol) Depression Answer Date Recorded Patient Health Questionnaire-9 Score 0 01/17/2025 Patient Health Questionnaire-9 Score 0 01/17/2025 Last PHQ-9: Questionnaire Data Not on file 0 01/17/2025 Housing Stability Answer Date Recorded What is your housing situation today? I have krystian rascon 01/09/[address] you li ve. Do you have problems with any of the following? None of the above 01/09/2025 Food Insecurity Answer Date Recorded Within the past 12 months, y ou worried that your food would run out before you got money to buy more: Never True 01/09/2025 Within the past 12 months,th e food you bought just didn't last and you didn't have enough money to get more: Never True Transportation Answer Date Recorded In the past 12 months, has l ack of transportation kept you from medical appts, meetings, work or from getting things needed for daily living? No 01/09/2025 Utilities Answer Date Recorded In the past 12 months, has t he electric, gas, oil or water company threatened to shut off services in your home? No 01/09/2025 Depression Answer Date Recorded Patient Health Questionnaire-2 Score 0 01/17/2025 Internet Access Answer Date Recorded Internet Access Q1 No 01/09/2025 Internet Access Q2 I cannot afford it 01/09/2025 Comments No Sex and Gender Information Value Date Recorded Sex Assigned at Female 04/12/2022 10:19 AM EDT Legal Sex Female 10:19 AM EDT Gender Identity Female 04/12/2022 10:19 AM EDT Sexual Orientation Straight 04/12/2022 10 :19 AM EDT Last Filed Vital Signs Vital Sign Reading Time Taken Comments Blood Pressure 132/72 01/17/2025 10:44 AM EDT Pulse 82 01/17/2025 10:44 AM EDT Temperature 36.7 C (98 F) 01/17/2025 10:44 AM EDT Respiratory Rate 20 01/17/2025 10:44 AM EDT Oxygen Saturation 99% 04/27/2024 11:19 AM EST Inhaled Oxygen Concentration - - Weight 93 kg (205 lb) 01/17/2025 10:44 AM EDT Height 157.5 cm (5' 2 ) 01/17/2025 10:44 AM EDT Body Mass Index 37.49 01/17/2025 10:44 AM EDT Plan of Treatment Upcoming Encounters Date Type Department Care Team (Late st Contact Info) Description 04/16/2025 1:00 PM EST Clinical Support [facility] [address] [place] [address] Sandra Boyd, RN Health Maintenance Due Date Last Done Comments CT Colonography 1961 FIT DNA/Cologuard 1961 FIT 1961 FOBT 1961 Sigmoidoscopy 1961 Diabetes: Foot Exam 1971 Eye Exam 1971 Pneumococcal Vaccine: 50+ Years (1 of 2 - PCV) 1980 Lung Cancer Screening 2011 COVID-19 Vaccine (3 - season) 2025 10/30/2020, 10/02/2020 Influenza Vaccine (#1) 2025 , 04/15/2022, 03/28/2020, Additional history exists Diabetes: Hemoglobin A1C 07/20/2025 025, 10/10/2024, 04/05/2024, Additional history exists Mammogram 07/25/2025 07/25/2024, 09/2022, 03/10/2022, Additional history exists Lipid Panel 08/16/2025 08/16/2024, 12/13, 10/11/2022, Additional history exists Alcohol/Substance Use Screening 10/10/2025 10/10/2024 Disability Screening 10/10/2025 10/10/2024 SDOH Screening 01/09/2026 01/09/2025 Depression Screening 01/17/2026 01/17/2025, 01/18/20 Tobacco Screening 01/17/2026 01/17/2025 DTaP/Tdap/Td Vaccines (2 - Td or Tdap) 04/15/2026 04/15/2016 Cervical Cancer Screening 04/18/2028 HPV/Cotest 04/18/2028 04/18/2023, 04/19/2018 Pap Smear 04/18/2028 04/18/2023 Colonoscopy 11/13/2034 11/13/2024 Colorectal Cancer Screening 11/13/2034 Hepatitis B Vaccines Completed 08/26/2016, 05/27/2016, 04/27/2016 HIV Screening Completed 02/03/2021 Hepatitis C Screening Completed 02/03/2021 RSV Patients and Patients Aged 60 years or older Completed 06/03/2023 Zoster Vaccines Completed 08/17/2023, 06/16/2023 HIB Vaccines Aged Out No longer eligi [...] Procedure Name Priority Date/Time Associated Diagnosis Comments XR HIP 2 OR 3 VIEWS RIGHT Routine 01/29/2025 11:40 AM EDT Right hip pain POCT GLYCATED HEMOGLOBIN, TOTAL Routine 01/17/2025 10:46 AM EDT Type 2 diabetes mellitus with hyperglycemia, without long-term current use of insulin ([facility]) POCT GLUCOSE Routine 01/17/2025 10:46 AM EDT Type 2 diabetes mellitus with hyperglycemia, without long-term current use of insulin ([facility]) POCT HECTOR-14 URINE DRUG SCREEN Routine 12/05/2024 2:40 PM EDT Long-term current use of opiate analgesic VASC US LOWER EXTREMITY VENOUS DUPLEX BILATERAL Routine 11/19/2024 1:27 PM EDT GLUCOSE, WHOLE BLOOD Routine 11/13/2024 7:51 AM EDT HM COLONOSCOPY Routine 11/13/2024 LIPID PANEL, STANDARD Routine 08/16/2024 9:01 AM [...] Recently Relevant to Health Maintenance Results * XR Hip 2 or 3 Views Right (01/29/2025 11:40 AM EDT) Anatomical Region Laterality Modality Lower Extremities, Hip Right Radiograp hic Imaging 01/29/2025 11:4 0 AM EDT Narrative 01/29/2025 1:13 PM EDT [address] [address] XRay Report Signed Patient: Violet Pascal MR#: [id number] : 1960 Acct:[id number] Age/Sex: 64 / F ADM Date: 01/29/25 Loc: HO.HHCX Attending Dr: Pretty Zayas MD Ordering Physician: Pretty Molina MD Date of Service: 01/29/25 Procedure(s): XR hip RT min 2V Accession Number(s): [id number] cc: Pretty Molina MD EXAMINATION: XR HIP, RIGHT CLINICAL INFORMATION: new pain COMPARISON: March 25, 2021. TECHNIQUE: AP and oblique views of the right hip. FINDINGS: Sclerosis along the articular surface of the acetabulum with subchondral cyst formation. Asymmetric joint space narrowing. No acute cortical disruption or gross malalignment. Sclerosis and vacuum phenomenon in the inferior right sacroiliac joint. Degenerative changes, mild in the symphysis pubis. XR/XR hip RT min 2V IMPRESSION: Mild to moderate osteoarthrosis/osteoarthritis, right hip. Overall no gross change. Electronically signed by: Yfn Cordova MD 01/29/2025 01:10 PM EDT Dictated By: Yfn Nicholson MD Signed By: <Electronically signed by Yfn Montes MD in OV> 01/29/25 1310 DD/ 1140 TD/TT: 01/29/25 1200 Quality Process Engineer: Procedure Note Donotuseinterpreter, Image - 01/29/[address] [address] XRay Report Signed Patient: Abraham Pascal#: [id number] : 1960cct:[id number] Age/Sex: 64 / FADM Date: 01/29/25 Loc: HO.HHCX Attending Dr: Pretty Zayas MD Ordering Physician: Pretty Molina MD Date of Service: 01/29/25 Procedure(s): XR hip RT min 2V Accession Number(s): [id number] cc: Pretty Molina MD EXAMINATION: XR HIP, RIGHT CLINICAL INFORMATION: new pain COMPARISON: March 25, 2021. TECHNIQUE: AP and oblique views of the right hip. FINDINGS: Sclerosis along the articular surface of the acetabulum with subchondral cyst formation. Asymmetric joint space narrowing. No acute cortical disruption or gross malalignment. Sclerosis and vacuum phenomenon in the inferior right sacroiliac joint. Degenerative changes, mild in the symphysis pubis. XR/XR hip RT min 2V IMPRESSION: Mild to moderate osteoarthrosis/osteoarthritis, right hip. Overall no gross change. Electronically signed by: Yfn Cordova MD 01/29/2025 01:10 PM EDT Dictated By: Yfn Nicholson MD Signed By: <Electronically signed by Yfn Montes MDin OV> 01/29/25 1310 DD/ 1140 TD/TT: 01/29/25 1200 Quality Process Engineer: Pretty Zayas MD IMG XR PROCEDURES Fin al Result * (ABNORMAL) POCT HGB A1C (01/17/2025 10:46 AM EDT) Hemoglobin A1C 6.4(A) 4.0 - 5.7 % QC Media Lot # [id number] Lot# Expiration Date 343,871 Blood 01/17/2025 10:4 6 AM EDT us Pretty Zayas MD POINT OF CARE TEST EN TER/EDIT ORDERABLES Final Result * (ABNORMAL) POCT Glucose (01/17/2025 10:46 AM EDT) Glucose Blood, POC 205(A) 60 - 200 mg/dL QC Media Lot # [id number] Lot# Expiration Date ,298,682 Blood Capillary blood specimen / Unknown 01/17/2025 10:46 AM EDT us Pretty Zayas MD POINT OF CARE TEST EN TER/EDIT ORDERABLES Final Result * POCT HECTOR-14 Urine Drug Screen (12/05/2024 2:40 PM EDT) THC Negative Negative Cocaine Screen, Urine Negative Negative Opiate Screen, Urine Negative Negative Methamphetamine Screen Urine Negative Negative Amphetamine Screen, Urine Negative Negative Benzodiazepines Screen, Urine Negative Negative Barbiturate Screen, Urine Negative Negative Methadone Screen, Urine Negative Negative Buprenophine Screen, Urine Negative Negative TCA, Urine Negative Negative MDMA Urine Negative Negative ng/mL Oxycodone Screen, Urine Positive Negative Phencyclidine (PCP), Urine Negative Negative Propoxyphene, Urine Negative Negative Fentanyl, Urine Negative Negative Urine Urine specimen obtained by clean catch procedure / Unknown 12/05/2024 2:40 PM EDT Narrative Sandra Boyd RN - 12/05/2024 2:40 PM EDT UTOX cup Lot#[id number] Exp. 04/12/26 Internal Pass Control us Pretty Zayas MD POINT OF CARE TEST EN TER/EDIT ORDERABLES Final Result * VAS US Lower Extremity Venous Duplex Bilateral (11/19/2024 1:27 PM EDT) 11/19/2024 1:27 PM EDT [facility] - 11/19/2024 2:41 PM EDT [address] [address] Ultrasound Report Signed Patient: Violet Pascal MR#: [id number] : 1960 Acct:[id number] Age/Sex: 64 / F ADM Date: 11/19/24 Loc: HO.US Attending Dr: Destinee Ugalde PA-C Ordering Physician: Destinee Ugalde PA-C Date of Service: 11/19/24 Procedure(s): US venous duplex LE BI Accession Number(s): [id number] cc: Pretty Molina MD; Destinee Ugalde PA-C EXAMINATION: US LOWER EXTREMITY VENOUS (REFLUX EXAM), BILATERAL CLINICAL INFORMATION: Varicose veins of the lower extremity with inflammation COMPARISON: None. TECHNIQUE: Color flow triplex imaging and compression Doppler was performed to evaluate both the deep and the superficial systems bilaterally. To evaluate the superficial system, the examination was performed in the upright position. Color-flow Doppler ultrasound and compression ultrasound were utilized. In addition, maneuvers were utilized to demonstrate reflux. FINDINGS: 1. DEEP VENOUS ULTRASOUND OF THE RIGHT LOWER EXTREMITY: Common Femoral Vein: Compressible, normal respiratory variation and augmented flow. Femoral Vein: Compressible, normal color flow and augmentation. Popliteal Vein: Compressible, normal augmentation. Deep Reflux: There is no evidence of reflux in the deep system in either the common femoral vein, superficial femoral or the popliteal vein. There is no evidence of a Cohen's cyst. 2. SUPERFICIAL ULTRASOUND WITH DOPPLER OF RIGHT LOWER EXTREMITY: GREAT SAPHENOUS VEIN: Saphenofemoral Junction: 25 cm; Reflux: 0 ms Proximal Thigh: 0.5 cm; Reflux: 0 ms Mid Thigh: 0.4 cm; Reflux: 0 ms Distal Thigh: 0.4 cm; Reflux: 0 ms At Knee: 0.3 cm; Reflux: 0 ms Proximal Calf: 0.2 cm; Reflux: > 2484 ms Mid Calf: 0.3 cm; Reflux: 0 ms Distal Calf: 0.3 cm; Reflux: 0 ms Lateral accessory GREAT SAPHENOUS VEIN: Saphenofemoral Junction: 0.3 cm; Reflux: 0 ms Mid Thigh: 0.2 cm; Reflux: 0 ms DUPLICATED MEDIAL GREAT SAPHENOUS VEIN: Diameter: None imaged Reflux: NA DUPLICATED LATERAL GREAT SAPHENOUS VEIN: Diameter: None imaged Reflux: NA SMALL SAPHENOUS VEIN: Popliteal vein drainage Saphenopopliteal Junction: 0.2 cm; Reflux: 0 ms Mid calf: 0.2 cm; Reflux: 0 ms Distal: 0.2 cm; Reflux: 0 ms VEIN OF GIACOMINI: Size: 0.3 cm Reflux: 0 ms PERFORATORS: Location: Greater saphenous vein, proximal calf Size: 0.4 cm Reflux: 0 ms Location: Greater saphenous vein, proximal calf Size: 0.2 cm Reflux: 0 ms Location: Greater saphenous vein, mid calf Size: 0.1-0.2 cm Reflux: 0 ms VARICOSITIES > 3mm: Location: Greater saphenous vein, proximal calf Size: 0.3 cm Reflux: 0 ms 3. DEEP VENOUS ULTRASOUND OF THE LEFT LOWER EXTREMITY: Common Femoral Vein: Compressible, normal respiratory variation and augmented flow. Femoral Vein: Compressible, normal color flow and augmentation. Popliteal Vein: Compressible, normal augmentation. Deep Reflux: There is no evidence of reflux in the deep system in either the common femoral vein, superficial femoral or the popliteal vein. 4. SUPERFICIAL ULTRASOUND WITH DOPPLER OF LEFT LOWER EXTREMITY: GREAT SAPHENOUS VEIN: Saphenofemoral Junction: 0.6 cm; Reflux: 0 ms Proximal Thigh: 0.6 cm; Reflux: 0 ms Mid Thigh: 0.4 cm; Reflux: 0 ms Distal Thigh: 0.4 cm; Reflux: 0 ms At Knee: 0.4 cm; Reflux: 0 ms Proximal Calf: 0.3 cm; Reflux: 1028 ms Mid Calf: 0.5 cm; Reflux: 548 ms Distal Calf: 0.3 cm; Reflux: 0 ms Lateral accessory GREAT SAPHENOUS VEIN: None imaged Medial accessory GREAT SAPHENOUS VEIN: None imaged DUPLICATED MEDIAL GREAT SAPHENOUS VEIN: Diameter: None imaged cm Reflux: NA ms DUPLICATED LATERAL GREAT SAPHENOUS VEIN: Diameter: None imaged. cm Reflux: NA ms SMALL SAPHENOUS VEIN: Thigh drainage Saphenopopliteal Junction: 0.3 cm; Reflux: 0 ms Proximal: 0.3 cm; Reflux: 0 ms Distal: 0.3 cm; Reflux: 0 ms Possible duplicated small saphenous vein distally. Diameter 1 mm. Reflux: 0 VEIN OF GIACOMINI: Size: NA Reflux: NA PERFORATORS: Location: Greater saphenous vein, proximal thigh Size: 0.3 cm Reflux: 0 ms Location: Greater saphenous vein, proximal calf 39 cm from calcaneus Size: 0.2 cm Reflux: 1072 ms Location: Greater saphenous vein, proximal calf Size: 0.2 cm Reflux: 0 ms Location: Greater saphenous vein, mid calf Size: 0.2 cm Reflux: 0 ms Location: Greater saphenous vein, mid calf Size: 0.3 cm Reflux: 0 ms VARICOSITIES > 3mm: Location: Greater saphenous vein, knee Size: 0.3 cm Reflux: 0 ms US/US venous duplex LE BI IMPRESSION: Right: Greater saphenous vein demonstrate reflux below the knee. Varicosities. Left: Greater saphenous vein reflux below the knee and at mid calf. Varicosities. [employer] with reflux is located 39 cm above the heel. Electronically signed by: Brain Hoover MD 11/19/2024 02:38 PM EDT RP Dictated By: Brain Hoover MD Signed By: <Electronically signed by Brain Hoover MD in OV> 11/19/24 1438 DD/ 1327 TD/TT: 11/19/24 1407 Quality Process Engineer: Procedure Note Donotuseinterpreter, Image - 11/19/2024 [place] [address] Ultrasound Report Signed Patient: Abraham Pascal#: [id number] : 1960cct:[id number] Age/Sex: 64 / FADM Date: 11/19/24 Loc: HO.US Attending Dr: Destinee Ugalde PA-C Ordering Physician: Destinee Ugalde PA-C Date of Service: 11/19/24 Procedure(s): US venous duplex LE BI Accession Number(s): [id number] cc: Pretty Molina MD; Destinee Ugalde PA-C EXAMINATION: US LOWER EXTREMITY VENOUS (REFLUX EXAM), BILATERAL CLINICAL INFORMATION: Varicose veins of the lower extremity with inflammation COMPARISON: None. TECHNIQUE: Color flow triplex imaging and compression Doppler was performed to evaluate both the deep and the superficial systems bilaterally. To evaluate the superficial system, the examination was performed in the upright position. Color-flow Doppler ultrasound and compression ultrasound were utilized. In addition, maneuvers were utilized to demonstrate reflux. FINDINGS: 1. DEEP VENOUS ULTRASOUND OF THE RIGHT LOWER EXTREMITY: Common Femoral Vein: Compressible, normal respiratory variation and augmented flow. Femoral Vein: Compressible, normal color flow and augmentation. Popliteal Vein: Compressible, normal augmentation. Deep Reflux: There is no evidence of reflux in the deep system in either the common femoral vein, superficial femoral or the popliteal vein. There is no evidence of a Cohen's cyst. 2. SUPERFICIAL ULTRASOUND WITH DOPPLER OF RIGHT LOWER EXTREMITY: GREAT SAPHENOUS VEIN: Saphenofemoral Junction: 25 cm; Reflux: 0 ms Proximal Thigh: 0.5 cm; Reflux: 0 ms Mid Thigh: 0.4 cm; Reflux: 0 ms Distal Thigh: 0.4 cm; Reflux: 0 ms At Knee: 0.3 cm; Reflux: 0 ms Proximal Calf: 0.2 cm; Reflux: > 2484 ms Mid Calf: 0.3 cm; Reflux: 0 ms Distal Calf: 0.3 cm; Reflux: 0 ms Lateral accessory GREAT SAPHENOUS VEIN: Saphenofemoral Junction: 0.3 cm; Reflux: 0 ms Mid Thigh: 0.2 cm; Reflux: 0 ms DUPLICATED MEDIAL GREAT SAPHENOUS VEIN: Diameter: None imaged Reflux: NA DUPLICATED LATERAL GREAT SAPHENOUS VEIN: Diameter: None imaged Reflux: NA SMALL SAPHENOUS VEIN: Popliteal vein drainage Saphenopopliteal Junction: 0.2 cm; Reflux: 0 ms Mid calf: 0.2 cm; Reflux: 0 ms Distal: 0.2 cm; Reflux: 0 ms VEIN OF GIACOMINI: Size: 0.3 cm Reflux: 0 ms PERFORATORS: Location: Greater saphenous vein, proximal calf Size: 0.4 cm Reflux: 0 ms Location: Greater saphenous vein, proximal calf Size: 0.2 cm Reflux: 0 ms Location: Greater saphenous vein, mid calf Size: 0.1-0.2 cm Reflux: 0 ms VARICOSITIES > 3mm: Location: Greater saphenous vein, proximal calf Size: 0.3 cm Reflux: 0 ms 3. DEEP VENOUS ULTRASOUND OF THE LEFT LOWER EXTREMITY: Common Femoral Vein: Compressible, normal respiratory variation and augmented flow. Femoral Vein: Compressible, normal color flow and augmentation. Popliteal Vein: Compressible, normal augmentation. Deep Reflux: There is no evidence of reflux in the deep system in either the common femoral vein, superficial femoral or the popliteal vein. 4. SUPERFICIAL ULTRASOUND WITH DOPPLER OF LEFT LOWER EXTREMITY: GREAT SAPHENOUS VEIN: Saphenofemoral Junction: 0.6 cm; Reflux: 0 ms Proximal Thigh: 0.6 cm; Reflux: 0 ms Mid Thigh: 0.4 cm; Reflux: 0 ms Distal Thigh: 0.4 cm; Reflux: 0 ms At Knee: 0.4 cm; Reflux: 0 ms Proximal Calf: 0.3 cm; Reflux: 1028 ms Mid Calf: 0.5 cm; Reflux: 548 ms Distal Calf: 0.3 cm; Reflux: 0 ms Lateral accessory GREAT SAPHENOUS VEIN: None imaged Medial accessory GREAT SAPHENOUS VEIN: None imaged DUPLICATED MEDIAL GREAT SAPHENOUS VEIN: Diameter: None imaged cm Reflux: NA ms DUPLICATED LATERAL GREAT SAPHENOUS VEIN: Diameter: None imaged. cm Reflux: NA ms SMALL SAPHENOUS VEIN: Thigh drainage Saphenopopliteal Junction: 0.3 cm; Reflux: 0 ms Proximal: 0.3 cm; Reflux: 0 ms Distal: 0.3 cm; Reflux: 0 ms Possible duplicated small saphenous vein distally. Diameter 1 mm. Reflux: 0 VEIN OF GIACOMINI: Size: NA Reflux: NA PERFORATORS: Location: Greater saphenous vein, proximal thigh Size: 0.3 cm Reflux: 0 ms Location: Greater saphenous vein, proximal calf 39 cm from calcaneus Size: 0.2 cm Reflux: 1072 ms Location: Greater saphenous vein, proximal calf Size: 0.2 cm Reflux: 0 ms Location: Greater saphenous vein, mid calf Size: 0.2 cm Reflux: 0 ms Location: Greater saphenous vein, mid calf Size: 0.3 cm Reflux: 0 ms VARICOSITIES > 3mm: Location: Greater saphenous vein, knee Size: 0.3 cm Reflux: 0 ms US/US venous duplex LE BI IMPRESSION: Right: Greater saphenous vein demonstrate reflux below the knee. Varicosities. Left: Greater saphenous vein reflux below the knee and at mid calf. Varicosities. University Teacher with reflux is located 39 cm above the heel. Electronically signed by: Brain Hoover MD 11/19/2024 02:38 PM EDT RP Dictated By: Brain Hoover MD Signed By: <Electronically signed by Brain Hoover MD in OV> 11/19/24 1438 DD/ 1327 TD/TT: 11/19/24 1407 Quality Process Engineer: [facility] External Provider CV VASC ULAR PROCEDURES Edited Result - Final Performing Organization Address City/[facility]/ZIP Co de Phone Number [facility] [address] [place] [address] * (ABNORMAL) Glucose, Whole Blood (11/13/2024 7:51 AM EDT) [facility] Glucose, Whole Blood 117(H) 60 - 115 mg/dL [facility] Comment:METER #: [id number] 11/13/2024 7:51 AM EDT 11/13/2024 7:55 AM EDT Generic External Data Provider LAB BLOOD ORDERAB LES Final Result Performing Organization Address [facility] Co de Phone Number [facility] [address] [place] [address] [phone] * Hm Colonoscopy (11/13/2024) [facility] Colonoscopy Normal Normal Narrative Kristi Ford - 11/13/2024 Recommended 10 years. See see external hospital admission note on 11/13/2024 Historical Provider HEALTH MAINTENANCE Final Result * Lipid Panel, Standard (08/16/2024 9:01 AM EST) Triglycerides 106 <150 mg/dL [facility] Comment:Desirable Triglyceri de: less than 150 mg/dLBorderline High Triglyceride 150-199 mg/dLHigh Triglyceride: 200-499 mg/dLVery High Triglyceride: greater than or equal to 5OO mg/dL Cholesterol 148 <200 mg/dL [facility] Comment:Desirable Cholestero l: less than 200 mg/dLBorderline High Cholesterol: 200-239 mg/dLHigh Cholesterol: greater than 239 mg/dL LDL Cholesterol Calculated 81 <100 mg/dL [facility] Comment:Desirable LDL: less than 100 mg/dLNear Optimal/Above Optimal LDL: 110- 129 mg/dLBorderline High LDL: 130-159 mg/dLHigh LDL: 160-189 mg/dLVery High LDL: greater than or equal to 190 mg/dL HDL Cholesterol 46 >40 mg/dL [facility] Comment:Desirable HDL: great er than 40 mg/dL Note: This HDL assay may give artificially low results in patients with liver disease. 08/16/2024 9:01 AM EST 08/16/2024 9:01 AM EST us Generic External Data Provider LAB BLOOD ORDERAB LES Final Result Performing Organization Address City/State/[facility] Co de Phone Number [facility] [address] [place] [phone] * BI Mammogram Screening Tomosynthesis Bilateral (07/25/2024 2:30 PM EST) Anatomical Region Laterality Modality Breast Bilateral Mammography 07/25/2024 2:30 PM EST Narrative 08/03/2024 4:35 PM EST [facility] [address] [place] [address] Mammography Report Signed Patient: Violet Pascal MR#: [id number] : 1960 Acct:[id number] Age/Sex: 64 / F ADM Date: 07/25/24 Loc: HO.MAMMO Attending Dr: Pretty Zayas MD Ordering Physician: Pretty Molina MD Results: 2Benign Findings Date of Service: 07/25/24 Follow Up: 1 Year From Orig inal Mammogram Procedure(s): MM tomosynthesis screening BI Accession Number(s): [id number] cc: Pretty Molina MD EXAMINATION: MM SCREENING [...] 08/03/24 1632 DD/ 1430 TD/TT: 07/25/24 1446 Quality Process Engineer: Procedure Note Donotuseinterpreter, Image - 08/03/2024 [facility] [address] [place] [address] Mammography Report Signed Patient: Abraham Pascal#: [id number] : 1960cct:[id number] Age/Sex: 64 / FADM Date: 07/25/24 Loc: HO.MAMMO Attending Dr: Pretty Zayas MD Ordering Physician: Pretty Molina MDResults: 2Benign Findings Date of Service: 07/25/24Follow Up: 1 Year From Orig inal Mammogram Procedure(s): MM tomosynthesis screening BI Accession Number(s): [id number] cc: Pretty Molina MD EXAMINATION: MM SCREENING [...] 08/03/24 1632 DD/ 1430 TD/TT: 07/25/24 1446 Quality Process Engineer: Pretty Zayas MD IMG BI PROCEDURES Fin al Result * HPV mRNA E6/E7 w/Reflex to HPV Genotypes 16, 18/45 (04/18/2023 2:08 PM EST) HPV nRNA E6/E7 Not Detected Not Detected [facility] Comment:Methodology: Transcr iption-Mediated AmplificationThis assay detects E6/E7 viral messenger RNA (mRNA) from 14high-risk HPV types (16,18,31,33,35,39,45,51,52,56,58,59,66,68).Cervical sources are required for HPV testing.If a vaginal source from a patient who has had atotal hysterectomy with removal of cervix wassubmitted, please contact the testing laboratoryfor alternative testing options.For additional information, please refer [email or web address].Sellfy/faq/[email or web address](This link if provided for information/educational purposes only.)THIS TEST WAS PERFORMED AT:[facility] [place] [id number] ANNE MD HPV mRNA E6/E7 TNP [facility] HPV 16 RNA TNP [facility] HPV 18/45 RNA TNP [facility] 04/18/2023 2:08 PM EST 04/19/2023 8:20 AM EST Cristian REYES LAB CYTOLOGY ORDERABLES F inal Result [facility] [address] [place] [phone] * Pap Smear (04/18/2023 2:08 PM EST) 04/18/2023 2:08 PM EST 04/19/2023 8:20 AM EST Narrative [facility] - 04/26/2023 1:40 PM EST ----- ------- Name: Violet Pascal Age/Sex: 63/F : 1960 Unit#: [id number] Attend Dr: CRISTIAN BRIONES CNM Re04/18/23 Status: DEVI REF Location: [facility] Disch: ----- ------- SPEC : [id number] RECD: 04/19/23 STATUS: MARYLIN WOODALL NUM: [id number] YASMINE: 04/18/23-[address] [facility] [address]: CRISTIAN BRIONES CNM ENTERED: 04/19/23 SP TYPE: Pap Smr OTHR DR: ORDERED: Pap Smear Interpretation Satisfactory for evaluation. No endocervical cells seen. Cytolysis noted. Negative for intraepithelial lesion or malignancy. HPV mRNA E6/E7: NOT DETECTED This assay detects E6/E7 viral messenger RNA (mRNA) from 14 high-risk HPV types (16, 18, 31, 33, 35, 39, 45, 51, 52, 56, 58, 59, 66, 68) HPV testing performed by [email or web address], [place], [place]. See reference laboratory pion of the EMR for entire report. Clinical Information LMP: Postmenopausal Previous PAP test: Unknown date/findings Material Received ThinPrep-Cervical ----- ------- Signed (signature on file) MARIOLA Walker (ASCP) 04/26/23 1340 ----- ------- END OF REPORT Cristian Briones CNM LAB CYTOLOGY ORDERABLES F inal Result [facility] [address] [place] [address] [phone] * Hepatitis C Antibody (02/03/2021 12:01 PM EDT) Pathologist [facility] Hepatitis C Antibody Nonreactive Nonreactive [facility] Comment: Antibodies to HCV not detected; does not exclude early acute HCV infection. HIV AB/AG Nonreactive Nonreactive [facility] Comment: HIV-1 p24 Ag and/or HIV-1/HIV-2 Ab not detected. A test result that is nonreactive does not exclude the possibility of exposure to or infection with HIV-1 and/or HIV-2. Nonreactive results in this assay for individuals with prior exposure to HIV-1 and/or HIV-2 may be due to antigen and antibody levels that are below the limit of detection of this assay. The [employer] Teacher HIV Ag/Ab Combo assay result and supplemental assay results should be interpreted in conjunction with the patient's clinical presentation, history and other laboratory results. If the results are inconsistent with clinical evidence, additional testing is suggested to confirm the result. Hepatitis B Surface Antigen Negative Negative [facility] 02/03/2021 12:0 1 PM EDT us Ramesh Gurrola MD HISTORICAL/NON ORDERABLE LABS Fi nal Result [facility] [address] from Last 3 Months or Most Recently Relevant to Health Maintenance Insurance [facility] C3 Care Teams Wood Dowel Machine Operator Relationship Specialty Start Date End Date Pretty Molina MD [address] [place] [address] PCP - General Family Medicine 12/24/20 Guero Burns, PoloD [address] [place] [address] Pharmacist Internal Medicine 09/20/24
--- OUTSIDE RECORDS SUMMARY | 2025-02-12 14:46 | XMS_ITS | Encounter Summary ---
Author Organization [employer] Address [address] [facility] [address]t [place] [address] Care Team Providers Care Missileman Name Role Phone Pretty Molina MD Primary Care Provide r Guero Burns PharmD Unavailable [phone] Reason for Visit * Reason Comments Med Refill Encounter Details Date Type Department Care Team ([facility] st Contact Info) Description 10/17/2024 Refill [facility] [address] [place], [place] [phone] Guero Burns, PharmD [address] [place], [place] [phone] Tobacco dependence Social History Tobacco Use Types [...] Description 04/16/2025 1:00 PM EST Clinical Support [facility] [address] [place] [address] Sandra Boyd, TONY documented as of this encounter Visit Diagnoses Diagnosis Tobacco dependence Tobacco use disorder documented in this encounter Additional Health Concerns Assessment Noted Time PHQ-9 Depression Total Score: 4 01/06/20 24 2:22 PM EDT documented as of this encounter Care Teams Missileman Relationship Specialty Start Date End Date Pretty Molina MD [address] [place] [phone] PCP - General Family Medicine 12/24/20 Guero Burns, Mario [address] [place] [address] Pharmacist Internal Medicine 09/20/24 documented as of this encounter
--- OUTSIDE RECORDS SUMMARY | 2025-02-12 14:46 | XMS_ITS | Encounter Summary ---
Author Organization [employer] Address [address] [facility] [address]t [place] [address] Care Team Providers Care Priming Machine Operator Name Role Phone Pretty Molina MD Primary Care Provide r Guero Burns PharmD Unavailable [phone] Reason for Visit * Reason Comments Med Refill Encounter Details Date Type Department Care Team ([facility] st Contact Info) Description 04/05/2024 Refill [facility] [address] [place] [address] Pretty Molina MD [address] [place] [address] Other chronic pain Social History Tobacco Use [...] Description 04/16/2025 1:00 PM EST Clinical Support [facility] [address] [place] [address] Sandra Boyd, RN documented as of this encounter Visit Diagnoses Diagnosis Other chronic pain documented in this encounter Additional Health Concerns Assessment Noted Time PHQ-9 Depression Total Score: 4 01/06/20 24 2:22 PM EDT documented as of this encounter Care Teams Priming Machine Operator Relationship Specialty Start Date End Date Pretty Molina MD [address] [place] [address] PCP - General Family Medicine 12/24/20 Guero Burns, Mario [address] [place] [address] Pharmacist Internal Medicine 09/20/24 documented as of this encounter
--- OUTSIDE RECORDS SUMMARY | 2025-02-12 14:46 | XMS_ITS | Encounter Summary ---
Author Organization [employer] Address [address] [facility] [address] [place] [address] Care Team Providers Care Technical Proposal Writer Name Role Phone Pretty Molina MD Primary Care Provide r Guero Bunrs PharmD Unavailable [phone] Reason for Visit * Reason Comments Med Refill Encounter Details Date Type Department Care Team (Late st Contact Info) Description 12/27/2022 Refill [facility] [address] [place] [address] Jocelyn Bender DO [address] [place] [address] Seasonal allergic rhinitis, unspecified trigger Social History [...] 1:00 PM EST Clinical Support [facility] [address] [place] [address] Sandra Boyd, RN documented as of this encounter Visit Diagnoses Diagnosis Seasonal allergic rhinitis, unspecified trigger documented in this encounter Additional Health Concerns Assessment Noted Time PHQ-9 Depression Total Score: 12 023 3:08 PM EDT documented as of this encounter Care Teams Technical Proposal Writer Relationship Specialty Start Date End Date Pretty Molina MD [address] [place] [phone] PCP - General Family Medicine 12/24/20 Guero Burns, PoloD [address] [place] [phone] Pharmacist Internal Medicine 09/20/24 documented as of this encounter
--- OUTSIDE RECORDS SUMMARY | 2025-02-12 14:46 | XMS_ITS | Encounter Summary ---
Author Organization [employer] Address [address] [facility] [address] [place] [address] Care Team Providers Care Lawn Care Specialist Name Role Phone Pretty Molina MD Primary Care Provide r Guero Burns PharmD Unavailable [phone] Reason for Visit * Reason Comments Med Refill Encounter Details Date Type Department Care Team ([facility] st Contact Info) Description 02/08/2025 Refill [facility] [address] [place] [address] Pretty Molina MD [address] [place], [place] [phone] Neuropathy Social History Tobacco Use Types Packs/Day [...] Description 04/16/2025 1:00 PM EST Clinical Support [facility] [address] [place] [address] Sandra Boyd, TONY documented as of this encounter Visit Diagnoses Diagnosis Neuropathy Mononeuritis of unspecified site documented in this encounter Additional Health Concerns Assessment Noted Time PHQ-9 Depression Total Score: 0 01/18/20 25 10:45 AM EDT documented as of this encounter Care Teams Lawn Care Specialist Relationship Specialty Start Date End Date Pretty Molina MD [address] [place] [phone] PCP - General Family Medicine 12/24/20 Guero Burns, Mario [address] [place] [phone] Pharmacist Internal Medicine 09/20/24 documented as of this encounter
== END 2025-02-12 14:09 | disposition home or self-care (01) ==
LOC: HO.HCS 13:28
PROVIDERS: PCP Internal Medicine
DX: I44.30 Unspecified atrioventricular block (principal); I42.2 Other hypertrophic cardiomyopathy; I10 Essential (primary) hypertension; E78.5 Hyperlipidemia, unspecified; E11.9 Type 2 diabetes mellitus without complications
CPT/HCPCS: 99214

== ENCOUNTER → 2025-02-12 13:28 | Outpatient (BNVA) | payer MEDICAID, SELFPAY | PROVIDERS: PCP Internal Medicine | DX: I10 Essential (primary) hypertension (principal); I42.2 Other hypertrophic cardiomyopathy; I44.30 Unspecified atrioventricular block; E78.5 Hyperlipidemia, unspecified; E11.9 Type 2 diabetes mellitus without complications | CPT/HCPCS: 99212 ==

== ENCOUNTER 2025-03-04 13:51 | Outpatient (REF) | payer MEDICAID, SELFPAY ==
--- NOTE | ~2025-03-04 | US_ITS ---
EXAMINATION: US PELVIS CLINICAL INFORMATION: Leiomyoma of uterus COMPARISON: Ultrasound of the pelvis 07/20/2024 TECHNIQUE: Ultrasound of the pelvis is performed using both transabdominal and transvaginal transducers along with Doppler. Transvaginal imaging is performed due to inadequate visualization transabdominally. FINDINGS: Uterus: The uterus is anteverted , anteflexed and measures 7.4 x 2.8 x 3.7 cm. The double wall endometrial thickness is 0.2 cm. There is minimal fluid seen within the endometrial canal. There are small nabothian cysts with calcification seen in the cervix. The uterus is smooth in contour and has normal myometrial echogenicity. There is a hypoechoic lesion in the fundus measuring 1.0 x 1.1 x 0.9 seen. Previously it measured 0.9 x 1.2 x 1.2 cm. No additional lesions seen.. Adnexa: Both ovaries are visualized. There is normal color flow to the adnexa. There is no ovarian torsion. There is no pelvic ascites or fluid collection. Right ovary is not visualized. Previously right ovary measured 2.4 x 1.7 x 0.8 cm. Left ovary measures 0.8 x 0.5 x 0.7 cm. Volume 0.2 mL. Previously left ovary was not visualized US/US pelvic and transvaginal IMPRESSION: Unremarkable uterus. Small nabothian cyst with calcification in cervix. Left ovary appears unremarkable. Right ovary is not seen. Electronically signed by: Paul Stevens MD 03/05/2025 07:39 AM EDT
[2025-03-04 15:35] LABS: Microalbum/Creatinine Ratio Ur 85.8 ug/mg cr (<30)
[2025-03-04 15:51] LABS: Cholesterol 151 mg/dL (<200); HDL Cholesterol 38 mg/dL (>40)
[2025-03-04 15:59] LABS: Triglycerides 184 mg/dL (<150)
[2025-03-04 16:01] LABS: Vitamin B12 505 pg/mL (200-900)
--- OUTSIDE RECORDS SUMMARY | 2025-03-04 16:19 | XMS_ITS | Encounter Summary ---
Author
--- OUTSIDE RECORDS SUMMARY | 2025-03-04 16:19 | XMS_ITS | Encounter Summary ---
Demographics
== END 2025-03-04 13:52 | disposition home or self-care (01) ==
LOC: HO.US 13:51
PROVIDERS: PCP Internal Medicine; Visit Provider Obstetrics & Gynecology
DX: E11.65 Type 2 diabetes mellitus with hyperglycemia (principal); E78.5 Hyperlipidemia, unspecified; D25.9 Leiomyoma of uterus, unspecified
CPT/HCPCS: 36415; 76830; 76856; 80061; 82043; 82570; 82607

== ENCOUNTER → 2025-03-04 14:30 | Outpatient (BNV) | payer MEDICAID, SELFPAY | PROVIDERS: PCP Internal Medicine; Visit Provider Radiology Diagnostic Radiology | DX: N88.8 Other specified noninflammatory disorders of cervix uteri (principal) | CPT/HCPCS: 76830; 76856 ==

== ENCOUNTER 2025-05-01 14:19 | Outpatient (AMB) | payer MEDICAID, SELFPAY ==
--- NOTE | 2025-05-01 14:55 | MHC.OFFVIS ---
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 Patient was referred by [facility]. Patient states her pain is located at the posterior aspect of hip that travels to the middle of her back. Scrap Preparation Supervisor Required: Yes Scrap Preparation Supervisor Services: Scrap Preparation Supervisor Present Scrap Preparation Supervisor Name: clark spencer [phone] Allergies morphine (MORPHINE) Allergy (Unknown, Verified 05/01/25 14:56) UNKNOWN Medication List - Last Reconciled 05/01/25 by Keny Edward PA-C albuterol sulfate 90 mcg/actuation (ProAir HFA) 2 puffs inhalation Q4-6H PRN albuterol sulfate 1 amp inhalation Q6H PRN ammonium lactate 12% topical BEDTIME aspirin (Adult Low Dose Aspirin) 81 mg PO DAILY atorvastatin 80 mg PO BEDTIME bisacodyl 10 mg WI DAILY PRN bisacodyl (Dulcolax (bisacodyl)) 10 mg (2 x 5 mg) PO BID 2 days blood sugar diagnostic (FreeStyle Lite Strips) As directed carvedilol 6.25 mg PO BID celecoxib (Celebrex) 200 mg PO QAM cetirizine (Allergy Relief (cetirizine)) 10 mg PO QAM cholecalciferol (vitamin D3) (Vitamin D3) 1 cap PO QAM cyclobenzaprine 10 mg (2 x 5 mg) PO TID PRN cyclosporine 0.05% (Restasis) 1 drp ophthalmic (eye) BID diclofenac sodium 1% 2 grams topical Q12H docusate sodium (Colace) 200 mg (2 x 100 mg) PO BEDTIME 30 days dulaglutide (Trulicity) mg subcut QWEEK duloxetine (Cymbalta) 60 mg PO QAM empagliflozin (Jardiance) 25 mg PO QAM estradiol 0.01%(0.1mg/gram) 1 g vaginal 2XW ezetimibe 10 mg PO DAILY fluoride (sodium) 1.1% (SF 5000 Plus) 1 appl dental BID fluticasone propionate 50 mcg/actuation (Flonase Allergy Relief) 2 sprays intranasal DAILY hydrocortisone 2.5% (Proctozone-HC) 1 appl WI BEDTIME PRN hydroxyzine pamoate 25 - 50 mg (1 - 2 x 25 mg) PO BEDTIME ketoconazole 2% 1 appl topical BID lancets (TRUEplus Lancets) As directed linaclotide (Linzess) 145 mcg PO DAILY 90 days loratadine (Claritin) 10 mg PO DAILY PRN losartan 100 mg PO QAM metformin 1,000 mg PO BID mirabegron ER (Myrbetriq) 50 mg PO DAILY naloxone 4 mg/actuation 1 spray intranasal DAILY PRN nifedipine ER 60 mg PO DAILY omeprazole 20 mg PO QAM oxycodone-acetaminophen 5-325 mg (Endocet) 1 tab PO BID PRN risperidone (Risperdal) 2 mg PO BEDTIME sennosides (senna) 17.2 mg (2 x 8.6 mg) PO BEDTIME triamcinolone acetonide 0.1% topical HPI HPI 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 She states the pain has been present for a while, she has fibromyalgia.She states her low back pain is worse with sitting. If she if walking for a long period of time she has pain in the low back. She states she does experience occassional burning down the legs. [facility] Medical History Subcutaneous mass Asymmetric septal hypertrophy Heart block atrioventricular Chronic pain Depression Vascular insufficiency Lichen Hip pain Foot pain Foot callus Cubital tunnel syndrome Chronic vulvovaginitis Carpal tunnel syndrome Burn scar contracture of upper arm Blurring of visual image Mood disorder Hyperlipidemia Renal cyst Hematuria of unknown cause Smoker Arthritis Back pain Diabetes GERD (gastroesophageal reflux disease) Fibromyalgia Anxiety and depression MARK on CPAP Chronic sinusitis Asthma Elevated cholesterol HTN (hypertension) Surgical History Hx of cystoscopy S/P lumpectomy of breast (04/20/21) Hx of colonoscopy Hx of dilation and curettage H/O tubal ligation History of skin graft Family History Father No problems noted. Mother No problems noted. 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 Right hip normal to inspection. No pain with ROM of the hip. Pain along the greater trochanter. No pain with hip flexion or abduction.There is tenderness along the si joint, Negative SLR. NVI. Results Reviewed Results Reviewed: lumbar spine xrays obtained in the office today and reviewed by me show OA of the Lumbar spine xrays of the right hip obtained prior to visit show mild OA Assessment & Plan Assessment & Plan (1) Osteoarthritis of lumbar spine: Code(s): M47.816 - Spondylosis without myelopathy or radiculopathy, lumbar region Category: Medical Qualifiers: Spinal osteoarthritis complication: with radiculopathy Qualified Code(s): M47.26 - Other spondylosis with radiculopathy, lumbar region Plan: I explained to the patient while she is c/o low back pain, it is not my area of speciality. I can see she has some OA and will refer her to Physical therapy to work on strength and conditioning and fu with Dr Del Rosario for further evaluation. (2) Osteoarthritis of right hip: Code(s): M16.11 - Unilateral primary osteoarthritis, right hip Category: Medical Qualifiers: Osteoarthritis type: primary Qualified Code(s): M16.11 - Unilateral primary osteoarthritis, right hip Plan: An order for PT was also placed for her hip. She will make an appt to schedule. I explained her hip and back pain and both be contributing to her pain but working with PT can helpful as it seems her hip pain is due to deconditioning of the surrounding hip stabilizers. I sent a rx for lidocaine patches as she has used these in the past. She will see me back prn for the hip. Orders: Orders XR hip RT min 2V Today M25.551 - Pain in right hip XR lumbar spine 2-3V Today M54.50 - Low back pain, unspecified Coding Level of Care Code Est Pt Level 3 (74730) Complex EM visit Add On G2211 Diagnoses Osteoarthritis of spine with radiculopathy, lumbar region M47.26 Spinal osteoarthritis complication: with radiculopathy Primary osteoarthritis of right hip M16.11 Osteoarthritis type: primary
[2025-05-01 15:06] VITALS: BMI 37.9
--- OUTSIDE RECORDS SUMMARY | 2025-05-02 02:47 | XMS_ITS | Encounter Summary ---
Author Organization [employer] Address [address] [facility] 7t [place] [address] Care Team Providers Care Social Worker School Name Role Phone Pretty Molina MD Primary Care Provide r Guero Burns PharmD Unavailable [phone] Reason for Visit * Reason Comments Med Refill Encounter Details Date Type Department Care Team ([facility] st Contact Info) Description 03/30/2023 Refill [facility] MEDICINE [address] [place] [address] Pretty Molina MD [address] [place] [address] Other chronic pain Social History Tobacco Use [...] Care Team (Late st Contact Info) Description 08/14/2025 2:00 PM EST Clinical Support [facility] MEDICINE [address] [place] [address] Sandra Boyd, TONY documented as of this encounter Visit Diagnoses Diagnosis Other chronic pain documented in this encounter Additional Health Concerns Assessment Noted Time PHQ-9 Depression Total Score: 12 023 3:08 PM EDT documented as of this encounter Care Teams Social Worker School Relationship Specialty Start Date End Date Pretty Molina MD [address] [place] [address] PCP - General Family Medicine 12/24/20 Guero Burns, PoloD [address] [place] [address] Pharmacist Internal Medicine 09/20/24 documented as of this encounter
--- OUTSIDE RECORDS SUMMARY | 2025-05-02 02:47 | XMS_ITS | Encounter Summary ---
Author Organization [employer] Address [address] [facility] [address] [place] [address] Care Team Providers Care Debone Processing Supervisor Name Role Phone Pretty Molina MD Primary Care Provide r Guero Burns PharmD Unavailable [phone] Encounter Details Date Type Department Care Team (Late Contact Info) Description 09/01/2022 Orders Only [facility] CHC MED & PEDS [address] [place], [place] [phone] Jocelyn Fleming LPN Social History Tobacco Use [...] Description 08/14/2025 2:00 PM EST Clinical Support [facility] MEDICINE [address] [place], [place] [phone] Sandra Boyd, TONY documented as of this encounter Visit Diagnoses Not on filedocumented in this encounter Care Teams Debone Processing Supervisor Relationship Specialty Start Date End Date Pretty Molina MD [address] [place], [place] [phone] PCP - General Family Medicine 12/24/20 Guero Burns, PharmD [address] [place] [address] [place] [address] Pharmacist Internal Medicine 09/20/24 documented as of this encounter
--- OUTSIDE RECORDS SUMMARY | 2025-05-02 02:47 | XMS_ITS | Encounter Summary ---
Author Organization [employer] Address [address] [facility] [address]t [place] [address] Care Team Providers Care Administrative Aide Name Role Phone Pretty Molina MD Primary Care Provide r Guero Burns PharmD Unavailable [phone] Reason for Visit * Reason Comments Med Refill Encounter Details Date Type Department Care Team ([facility] st Contact Info) Description 05/12/2023 Refill [facility] CHC MED & PEDS [address] [place] [address] Pretty Molina MD [address] [place] [address] Neuropathy Social History Tobacco Use Types Packs/Day [...] Description 08/14/2025 2:00 PM EST Clinical Support [facility] MEDICINE [address] [place] [address] Sandra Boyd RN documented as of this encounter Visit Diagnoses Diagnosis Neuropathy Mononeuritis of unspecified site documented in this encounter Additional Health Concerns Assessment Noted Time PHQ-9 Depression Total Score: 12 023 3:08 PM EDT documented as of this encounter Care Teams Administrative Aide Relationship Specialty Start Date End Date Pretty Molina MD [address] [place] [address] PCP - General Family Medicine 12/24/20 Guero Burns PharmD [address] [place] [address] Pharmacist Internal Medicine 09/20/24 documented as of this encounter
--- OUTSIDE RECORDS SUMMARY | 2025-05-02 02:47 | XMS_ITS | Encounter Summary ---
Author Organization [employer] Address [address] [facility] 7t [place] [address] Care Team Providers Care Aerospace Stress Engineer Name Role Phone Pretty Molina MD Primary Care Provide r Guero Burns PharmD Unavailable [phone] Reason for Visit * Reason Comments Med Refill Encounter Details Date Type Department Care Team ([facility] st Contact Info) Description 07/05/2023 Refill [facility] CHC MED & PEDS [address] [place] [address] Pretty Molina MD [address] [place] [address] Social History Tobacco Use Types Packs/Day Years [...] Description 08/14/2025 2:00 PM EST Clinical Support [facility] MEDICINE [address] [place] [address] Sandra Boyd, TONY documented as of this encounter Visit Diagnoses Not on filedocumented in this encounter Additional Health Concerns Assessment Noted Time PHQ-9 Depression Total Score: 12 023 3:08 PM EDT documented as of this encounter Care Teams Aerospace Stress Engineer Relationship Specialty Start Date End Date Pretty Molina MD [address] [place] [address] PCP - General Family Medicine 12/24/20 Guero Burns, PoloD [address] [place] [address] Pharmacist Internal Medicine 09/20/24 documented as of this encounter
--- OUTSIDE RECORDS SUMMARY | 2025-05-02 02:47 | XMS_ITS | Encounter Summary ---
Author Organization [employer] Address [address] [facility] [address] [address] Care Team Providers Care Water Service Dispatcher Name Role Phone Pretty Molina MD Primary Care Provide r Guero Burns PharmD Unavailable [phone] Reason for Visit * Reason Comments Med Refill Encounter Details Date Type Department Care Team (Late st Contact Info) Description 02/28/2023 Refill [facility] MEDICINE [address] [place] [address] Pretty Molina MD [address] [place] [address] Social History Tobacco Use Types Packs/Day Years [...] Description 08/14/2025 2:00 PM EST Clinical Support [facility] MEDICINE [address] [place] [address] aSndra Boyd RN documented as of this encounter Visit Diagnoses Not on filedocumented in this encounter Additional Health Concerns Assessment Noted Time PHQ-9 Depression Total Score: 12 023 3:08 PM EDT documented as of this encounter Care Teams Water Service Dispatcher Relationship Specialty Start Date End Date Pretty Molina MD [address] [place] [address] PCP - General Family Medicine 12/24/20 Guero Burns, PoloD [address] [place] [address] Pharmacist Internal Medicine 09/20/24 documented as of this encounter
--- OUTSIDE RECORDS SUMMARY | 2025-05-02 02:47 | XMS_ITS | Encounter Summary ---
Author Organization [employer] Address [address] [facility] [address] [address] Care Team Providers Care Oral And Maxillofacial Surgery Resident Name Role Phone Pretty Molina MD Primary Care Provide r Guero Burns PharmD Unavailable [phone] Encounter Details Date Type Department Care Team (Latest Contact Info) Description 05/31/2019 Abstract [facility] CONVERSIONS Dental, Provider, DDS Social History [...] 2:00 PM EST Clinical Support [facility] MEDICINE [address] [place] [address] Sandra Boyd, TONY documented as of this encounter Visit Diagnoses Not on filedocumented in this encounter Care Teams Oral And Maxillofacial Surgery Resident Relationship Specialty Start Date End Date Pretty Molina MD [address] [place] [address] PCP - General Family Medicine 12/24/20 Guero Burns, PharmD [address] [place] [address] Pharmacist Internal Medicine 09/20/24 documented as of this encounter
--- OUTSIDE RECORDS SUMMARY | 2025-05-02 02:47 | XMS_ITS | Encounter Summary ---
Author Organization [employer] Address [address] [facility] 7[address] [place] [address] Care Team Providers Care Corrections Lieutenant Name Role Phone Pretty Molina MD Primary Care Provide r Guero Burns PharmD Unavailable [phone] Reason for Visit * Reason Comments Med Refill Encounter Details Date Type Department Care Team ([facility] st Contact Info) Description 05/10/[address] [facility] MEDICINE [address] [place] [address] Pretty Molina MD [address] [place] [address] Other chronic pain Social History Tobacco Use [...] Description 08/14/2025 2:00 PM EST Clinical Support [facility] MEDICINE [address] [place] [address] Sandra Boyd, TONY documented as of this encounter Visit Diagnoses Diagnosis Other chronic pain documented in this encounter Additional Health Concerns Assessment Noted Time PHQ-9 Depression Total Score: 12 023 3:08 PM EDT documented as of this encounter Care Teams Corrections Lieutenant Relationship Specialty Start Date End Date Pretty Molina MD [address] [place] [address] PCP - General Family Medicine 12/24/20 Guero Burns, PoloD [address] [place] [address] Pharmacist Internal Medicine 09/20/24 documented as of this encounter
--- OUTSIDE RECORDS SUMMARY | 2025-05-02 02:47 | XMS_ITS | Encounter Summary ---
Author Organization [employer] Address [address] [facility] [address] [place] [address] Care Team Providers Care Electronics Computer Mechanic Name Role Phone Pretty Molina MD Primary Care Provide r Guero Burns PharmD Unavailable [phone] Reason for Visit * Reason Comments Med Refill Encounter Details Date Type Department Care Team (Late st Contact Info) Description 06/11/2022 Refill [facility] MEDICINE [address] [place] [address] Yasmine Hernandez MD [address] [place], [place] [phone] Chronic pain syndrome Social History Tobacco Use [...] Cedillo RN - 06/15/2022 10:45 AM EST Health Plan Manager ck 06/15/22. documented in this encounter Plan of Treatment Upcoming Encounters Date Type Department Care Team (Late st Contact Info) Description 08/14/2025 2:00 PM EST Clinical Support [facility] MEDICINE [address] [place], [place] [phone] Deb, Sandra, RN documented as of this encounter Visit Diagnoses Diagnosis Chronic pain syndrome documented in this encounter Care Teams Electronics Computer Mechanic Relationship Specialty Start Date End Date Pretty Molina MD [address] [place], [place] [phone] PCP - General Family Medicine 12/24/20 Guero Burns PharmD [address] [place] [address] Pharmacist Internal Medicine 09/20/24 documented as of this encounter
--- OUTSIDE RECORDS SUMMARY | 2025-05-02 02:47 | XMS_ITS | Encounter Summary ---
Author Organization [employer] Address [address] [place] [address] [address] [place] [address] Care Team Providers Care Central Office Maintainer Name Role Phone Pretty Molina MD Primary Care Provide r Guero Burns PharmD Unavailable [phone] Encounter Details Date Type Department Care Team (Latest Contact Info) Description 2019 Abstract [facility] CONVERSIONS Dental, Provider, DDS Social [...] Description 08/14/2025 2:00 PM EST Clinical Support [facility] MEDICINE [address] [place] [address] Sandra Boyd, TONY documented as of this encounter Visit Diagnoses Not on filedocumented in this encounter Care Teams Central Office Maintainer Relationship Specialty Start Date End Date Pretty Molina MD [address] [place] [address] PCP - General Family Medicine 12/24/20 Guero Burns, PharmD [address] [place] [address] Pharmacist Internal Medicine 09/20/24 documented as of this encounter
--- OUTSIDE RECORDS SUMMARY | 2025-05-02 02:47 | XMS_ITS | Encounter Summary ---
Author Organization [employer] Address [address] [facility] 7t [place] [address] Care Team Providers Care Medical Cash Poster Name Role Phone Pretty Molina MD Primary Care Provide r Guero Burns PharmD Unavailable [phone] Reason for Visit * Reason Comments Med Refill Encounter Details Date Type Department Care Team ([facility] st Contact Info) Description 03/23/2023 Refill [facility] CHC MED & PEDS [address] [place] [address] Pretty Molina MD [address] [place] [address] Neuropathy Social History Tobacco Use Types Packs/Day [...] Description 08/14/2025 2:00 PM EST Clinical Support [facility] MEDICINE [address] [place] [address] aSndra Boyd RN documented as of this encounter Visit Diagnoses Diagnosis Neuropathy Mononeuritis of unspecified site documented in this encounter Additional Health Concerns Assessment Noted Time PHQ-9 Depression Total Score: 12 023 3:08 PM EDT documented as of this encounter Care Teams Medical Cash Poster Relationship Specialty Start Date End Date Pretty Molina MD [address] [place] [address] PCP - General Family Medicine 12/24/20 Guero Burns PharmD [address] [place] [address] Pharmacist Internal Medicine 09/20/24 documented as of this encounter
--- OUTSIDE RECORDS SUMMARY | 2025-05-02 02:47 | XMS_ITS | Encounter Summary ---
Author Organization [employer] Address [address] [place] [address] [address] [place] [address] Care Team Providers Care Vp Clinical Research Name Role Phone Pretty Molina MD Primary Care Provide r Guero Burns PharmD Unavailable [phone] Encounter Details Date Type Department Care Team (Late st Contact Info) Description 07/01/2022 Orders Only [address] [address] Marti Cedillo RN Chronically on opiate therapy [...] Description 08/14/2025 2:00 PM EST Clinical Support [facility] [address] [place] [address] Sandra Boyd RN documented as of this encounter Visit Diagnoses Diagnosis Chronically on opiate therapy- Primary documented in this encounter Care Teams Vp Clinical Research Relationship Specialty Start Date End Date Pretty Molina MD [address] [place] [address] PCP - General Family Medicine 12/24/20 Guero Burns, PharmD [address] [place] [address] Pharmacist Internal Medicine 09/20/24 documented as of this encounter
--- OUTSIDE RECORDS SUMMARY | 2025-05-02 02:47 | XMS_ITS | Encounter Summary ---
Author Organization [employer] Address [address] [facility] [address] [place] [address] Care Team Providers Care Machinist 2Nd Shift Name Role Phone Pretty Molina MD Primary Care Provide r Guero Burns PharmD Unavailable [phone] Encounter Details Date Type Department Care Team (Late st Contact Info) Description 07/12/2022 Orders Only [facility] CHC MED & PEDS [address] [place], [place] [phone] Jocelyn Fleming LPN Social History Tobacco Use [...] Support [facility] MEDICINE [address] [place] [address] Sandra Boyd, TONY documented as of this encounter Visit Diagnoses Not on filedocumented in this encounter Care Teams Machinist 2Nd Shift Relationship Specialty Start Date End Date Pretty Molina MD [address] [place] [address] PCP - General Family Medicine 12/24/20 Guero Burns, PharmD [address] [place] [address] Pharmacist Internal Medicine 09/20/24 documented as of this encounter
--- OUTSIDE RECORDS SUMMARY | 2025-05-02 02:47 | XMS_ITS | Encounter Summary ---
Author Organization [employer] Address [address] [facility] 7t [place] [address] Care Team Providers Care Therapy Administrative Assistant Name Role Phone Pretty Molina MD Primary Care Provide r Guero Burns PharmD Unavailable [phone] Reason for Visit * Reason Comments Med Refill Encounter Details Date Type Department Care Team (Late st Contact Info) Description 09/21/2024 Refill [facility] MEDICINE [address] [place] [address] Pretty Molina MD [address] [place] [address] Type 2 diabetes mellitus with hyperglycemia, without long-term current use of insulin ([facility]) Social History Tobacco Use Types Packs/Day Years Used Date Smoking Tobacco: Every Day Cigarettes 0.8 35.9 Started: 1989 Passive Smoke Exposure: Current Smokeless [...] Description 08/14/2025 2:00 PM EST Clinical Support [facility] MEDICINE [address] [place] [address] Sandra Boyd, RN documented as of this encounter Visit Diagnoses Diagnosis Type 2 diabetes mellitus with hyperglycemia, without long-term current use of insulin (HCC) documented in this encounter Additional Health Concerns Assessment Noted Time PHQ-9 Depression Total Score: 4 01/06/20 24 2:22 PM EDT documented as of this encounter Care Teams Therapy Administrative Assistant Relationship Specialty Start Date End Date Pretty Molina MD [address] [place] [address] PCP - General Family Medicine 12/24/20 Guero Burns, PoloD [address] [place] [address] Pharmacist Internal Medicine 09/20/24 documented as of this encounter
--- OUTSIDE RECORDS SUMMARY | 2025-05-02 02:47 | XMS_ITS | Encounter Summary ---
Author Organization [employer] Address [address] [facility] [address] [place] [address] Care Team Providers Care Cuff Knitter Name Role Phone Pretty Molina MD Primary Care Provide r Guero Burns PharmD Unavailable [phone] Reason for Visit * Reason Comments Med Refill Encounter Details Date Type Department Care Team ([facility] st Contact Info) Description 07/01/2024 Refill [facility] [address] [place] [address] Keysha Nagel, YOLETTE [address] [place] [address] Social History Tobacco Use Types Packs/Day Years [...] Description 08/14/2025 2:00 PM EST Clinical Support [facility] [address] [place] [address] Sandra Boyd, RN documented as of this encounter Visit Diagnoses Not on filedocumented in this encounter Additional Health Concerns Assessment Noted Time PHQ-9 Depression Total Score: 4 01/06/20 24 2:22 PM EDT documented as of this encounter Care Teams Cuff Knitter Relationship Specialty Start Date End Date Pretty Molina MD [address] [place] [address] PCP - General Family Medicine 12/24/20 Guero Burns, PoloD [address] [place] [address] Pharmacist Internal Medicine 09/20/24 documented as of this encounter
--- OUTSIDE RECORDS SUMMARY | 2025-05-02 02:47 | XMS_ITS | Encounter Summary ---
Author Organization [employer] Address [address] [facility] [address] [place] [address] Care Team Providers Care Hookman Name Role Phone Pretty Molina MD Primary Care Provide r Guero Burns PharmD Unavailable [phone] Reason for Visit * Reason Onset Date Comments Med Refill 06/10/2022 Encounter Details Date Type Department Care Team (Late st Contact Info) Description 06/10/2022 Refill [facility] MED[facility] [address] [place] [address] Pretty Molina MD [address] [place] [address] Social History Tobacco Use Types Packs/Day Years [...] Description 08/14/2025 2:00 PM EST Clinical Support [facility] [address] [place] [address] Sandra Boyd, TONY documented as of this encounter Visit Diagnoses Not on filedocumented in this encounter Care Teams Hookman Relationship Specialty Start Date End Date Pretty Molina MD [address] [place] [address] PCP - General Family Medicine 12/24/20 Guero Burns, PoloD [address] [place] [id number] Pharmacist Internal Medicine 09/20/24 documented as of this encounter
--- OUTSIDE RECORDS SUMMARY | 2025-05-02 02:47 | XMS_ITS | Encounter Summary ---
Author Organization [employer] Address [address] [facility] [address] [place] [address] Care Team Providers Care Fabric Normalizer Name Role Phone Pretty Molina MD Primary Care Provide r Guero Burns PharmD Unavailable [phone] Reason for Visit * Reason Comments Med Refill Encounter Details Date Type Department Care Team ([facility] st Contact Info) Description 05/02/2023 Refill [facility] [address] [place] [address] Jocelyn Bender DO [address] [place], [place] [id number] Seasonal allergic rhinitis, unspecified trigger Social History [...] 2:00 PM EST Clinical Support [facility] [address] [place] [address] Sandra Boyd RN documented as of this encounter Visit Diagnoses Diagnosis Seasonal allergic rhinitis, unspecified trigger documented in this encounter Additional Health Concerns Assessment Noted Time PHQ-9 Depression Total Score: 12 023 3:08 PM EDT documented as of this encounter Care Teams Fabric Normalizer Relationship Specialty Start Date End Date Pretty Molina MD [address] [place] [address] PCP - General Family Medicine 12/24/20 Guero Burns, Mario [address] [place] [address] Pharmacist Internal Medicine 09/20/24 documented as of this encounter
--- OUTSIDE RECORDS SUMMARY | 2025-05-02 02:47 | XMS_ITS | Encounter Summary ---
Author Organization [employer] Address [address] [facility] [address] [place] [address] Care Team Providers Care Information Technology Administrator Name Role Phone Pretty Molina MD Primary Care Provide r Guero Burns PharmD Unavailable [phone] Reason for Visit * Reason Comments Med Refill Encounter Details Date Type Department Care Team ([facility] st Contact Info) Description 05/09/2023 Refill [facility] [address] [place] [address] Pretty Molina MD [address] [place] [address] Other chronic pain Social History Tobacco Use [...] Description 08/14/2025 2:00 PM EST Clinical Support [facility] [address] [place] [address] Sandra Boyd, TONY documented as of this encounter Visit Diagnoses Diagnosis Other chronic pain documented in this encounter Additional Health Concerns Assessment Noted Time PHQ-9 Depression Total Score: 12 023 3:08 PM EDT documented as of this encounter Care Teams Information Technology Administrator Relationship Specialty Start Date End Date Pretty Molina MD [address] [place] [address] PCP - General Family Medicine 12/24/20 Guero Burns, PoloD [address] [place] [phone] Pharmacist Internal Medicine 09/20/24 documented as of this encounter
--- OUTSIDE RECORDS SUMMARY | 2025-05-02 02:47 | XMS_ITS | Encounter Summary ---
Author Organization [employer] Address [address] [facility] [address] [place] [address] Care Team Providers Care College Admissions Counselor Name Role Phone Pretty Molina MD Primary Care Provide r Guero Burns PharmD Unavailable [phone] Reason for Visit * Reason Comments Med Refill Encounter Details Date Type Department Care Team ([facility] st Contact Info) Description 06/06/2024 Refill [facility] [address] [place] [address] Pretty Molina MD [address] [place] [address] Type 2 diabetes mellitus with hyperglycemia, without long-term current use of insulin ([facility]) Social History [...] Description 08/14/2025 2:00 PM EST Clinical Support [facility] [address] [place] [address] Sandra Boyd, TONY documented as of this encounter Visit Diagnoses Diagnosis Type 2 diabetes mellitus with hyperglycemia, without long-term current use of insulin (HCC) documented in this encounter Additional Health Concerns Assessment Noted Time PHQ-9 Depression Total Score: 4 01/06/20 24 2:22 PM EDT documented as of this encounter Care Teams College Admissions Counselor Relationship Specialty Start Date End Date Pretty Molina MD [address] [place] [id number] PCP - General Family Medicine 12/24/20 Guero Burns, Mario [address] [place] [phone] Pharmacist Internal Medicine 09/20/24 documented as of this encounter
--- OUTSIDE RECORDS SUMMARY | 2025-05-02 02:47 | XMS_ITS | Encounter Summary ---
Author Organization [employer] Address [address] [place] [address] [address] [place] [address] Care Team Providers Care Metal Mine Inspector Name Role Phone Pretty Molina MD Primary Care Provide r Guero Burns PharmD Unavailable [phone] Encounter Details Date Type Department Care Team (Latest Contact Info) Description 04/21/2020 Abstract [facility] CONVERSIONS Dental, [...] Support [facility] MEDICINE [address] [place] [address] Sandra Boyd, TONY documented as of this encounter Visit Diagnoses Not on filedocumented in this encounter Care Teams Metal Mine Inspector Relationship Specialty Start Date End Date Pretty Molina MD [address] [place] [address] PCP - General Family Medicine 12/24/20 Guero Burns, PharmD [address] [place] [address] Pharmacist Internal Medicine 09/20/24 documented as of this encounter
--- OUTSIDE RECORDS SUMMARY | 2025-05-02 02:48 | XMS_ITS | Clinical Summary ---
Author Organization [employer] Address [address] [facility] [address] [place] [address] Care Team Providers Care Director Of Religious Activities Name Role Phone Pretty Molina MD Primary Care Provide r Guero Burns PharmD Unavailable [phone] Allergies Active Allergy Reactions Criticality Noted Date Comments Morphine Palpitations Low 06/25/2022 tachycardia Medications hydrocortisone (Anusol-HC) 2.5 % rectal creamIndication s:Hemorrhoids, unspecified hemorrhoid type Apply a thin layer to affected area(s)twice daily to four times daily as needed 30 g 023 Active Blood Glucose Monitoring Suppl (FreeStyle Lite) w/Device kitIndications: Type 2 diabetes mellitus with hyperglycemia, without long-term current use of insulin (HCC) 1 kit 2 times daily. To monitor [...] PER WEEK. 42.5 g 1 024 Active Aspirin Low Dose 81 MG [...] AND USE vaseline THEN NEEDED Active nicotine polacrilex (FT Nicotine) 4 MG lozengeIndicati ons:Tobacco dependence Dissolve 1 lozenge (4 mg) in the mouth every 1-2 hours if needed for smoking cessation. 144 lozenge 1 025 Active glipiZIDE (Glucotrol) 10 MG tabletIndicatio ns:Diabetes mellitus type 2 in nonobese (HCC) TAKE 1 TABLET BY MOUTH EVERY MORNING BEFORE BREAKFAST 90 tablet 3 025 Active losartan (Cozaar) 100 MG tabletIndicatio ns:Primary hypertension TAKE 1 TABLET BY MOUTH EVERY MORNING 90 tablet 3 025 Active omeprazole (PriLOSEC) [address] capsule TAKE 1 CAPSULE BY MOUTH EVERY MORNING 90 capsule 1 025 Active Jardiance 25 MGIndications:T ype 2 diabetes mellitus with other specified complication, unspecified whether prison insulin use ([facility]) TAKE 1 TABLET BY MOUTH EVERY MORNING 30 tablet 5 Active Diclofenac Sodium 1 % gelIndications: Fibromyalgia APPLY 2 GRAMS TOPICALLY TO AFFECTED AREA(S) EVERY TWELVE HOURS 100 g 1 Active bisacodyl (Dulcolax) 10 MG suppository INSERT 1 SUPPOSITORY RECTALLY DAILY NEEDED FOR CONSTIPATION Active Linzess 145 MCG capsule Take 1 capsule by mouth Once per day. Active senna (Senokot) 8.6 MG tablet TAKE 2 TABLETS BY MOUTH ONCE DAILY 30 MINUTES BEFORE BEDTIME Active nicotine (Nicoderm CQ) 14 MG/24HR patchIndication s:Tobacco dependence Place 1 patch on the skin 1 (one) time each day at the same time. 21 patch 025 Active hydroCHLOROthia zide 12.5 MG tabletIndicatio ns:Primary hypertension TAKE 1 TABLET BY MOUTH EVERY MORNING (CALL IF BP CONTINUAMENTE > 140/90) 90 tablet 1 025 Active cetirizine (ZyrTEC) 10 MG tabletIndicatio ns:Seasonal allergies TAKE 1 TABLET BY MOUTH EVERY MORNING 90 tablet 025 Active Trulicity 1.5 MG/0.5ML solution auto-injectorIn dications:Type 2 diabetes mellitus with hyperglycemia, without long-term current use of insulin ([facility]) INJECT ONE PEN (=1.5MG) SUBCUTANEOUSLY ONCE A WEEK DIRECTED 2 mL 3 Active Blood Glucose Monitoring Suppl (FreeStyle Lite) device Inject 1 each under the skin Use as directed. 1 each Active polyvinyl alcohol (Liquifilm Tears) 1.4 % ophthalmic solutionIndicat ions:Dry eye syndrome of bilateral lacrimal glands PLACE 1 DROP IN EACH EYE THREE TIMES DAILY IN THE MORNING, AT NOON, AND AT BEDTIME NEEDED FOR DRY EYES 15 mL 1 Active atorvastatin (Lipitor) 80 MG tabletIndicatio ns:Essential hypertension TAKE 1 TABLET BY MOUTH AT BEDTIME 90 tablet 3 Active fluticasone (Flonase) 50 MCG/ACT nasal sprayIndication s:Cough in adult patient INSTILL 2 SPRAYS IN EACH NOSTRIL ONCE DAILY 48 g 1 Active oxyCODONE-aceta minophen (Percocet) 5-325 MG tabletIndicatio ns:Other chronic pain Take 1 tablet by mouth every 12 (twelve) hours if needed for severe pain for up to 28 days. 56 tablet 025 2024 Active gabapentin (Neurontin) 300 MG capsuleIndicati ons:Neuropathy TAKE 2 CAPSULES BY MOUTH THREE TIMES DAILY IN THE MORNING, EVENING AND BEDTIME 180 capsule 1 Active cholecalciferol (D3-1000) 25 MCG (1000 UT) capsuleIndicati ons:Vitamin D deficiency TAKE 1 CAPSULE BY MOUTH EVERY MORNING 90 capsule 1 Active glucose blood (FREESTYLE LITE) test stripIndication s:Type 2 diabetes mellitus with hyperglycemia, without long-term current use of insulin ([facility]) TEST BLOOD SUGAR THREE TIMES DAILY DIRECTED 100 strip 11 Active TRUEplus Lancets 33G miscIndications :Type 2 diabetes mellitus with hyperglycemia, without long-term current use of insulin ([facility]) TAKE 1 TABLET BY MOUTH THREE TIMES DAILY 100 each 11 Active naloxone (Narcan) 4 mg/0.1 mL nasal sprayIndication s:Long-term current use of opiate analgesic Administer 1 spray (4 mg) into affected nostril(s) if needed for opioid reversal. May repeat every 2-3 minutes if needed, alternating nostrils, until medical assistance becomes available. 2 each 3 025 2025 Active albuterol (2.5 MG/3ML) 0.083% nebulizer solution INHALE 1 AMPULE USING A NEBULIZER EVERY 6 HOURS NEEDED 90 mL 3 04/25/20 25 10:53 AM EST Active albuterol (Ventolin HFA) 108 (90 Base) MCG/ACT inhaler INHALE 2 PUFFS BY MOUTH EVERY 4 TO 6 HOURS NEEDED FOR WHEEZING OR SHORTNESS OF BREATH 18 g 3 025 Active glucose blood (FREESTYLE LITE) test strip TEST BLOOD SUGAR 3 TIMES A DAY DIRECTED 100 strip 11 024 2024 Discontinued TRUEplus Lancets 33G misc TEST BLOOD SUGAR 3 TIMES DAILY 100 each 11 024 2024 Discontinued albuterol (2.5 MG/3ML) 0.083% nebulizer solution INHALE 1 AMPULE USING A NEBULIZER EVERY 6 HOURS NEEDED 90 mL 3 024 2024 Discontinued(R eorder (will not trigger notification to Pharmacy)) cholecalciferol (D3-1000) 25 MCG (1000 UT) capsuleIndicati ons:Vitamin D deficiency TAKE 1 CAPSULE BY MOUTH EVERY MORNING 90 capsule 1 025 2024 Discontinued(R eorder (will not trigger notification to Pharmacy)) fluticasone (Flonase) 50 MCG/ACT nasal sprayIndication s:Cough in adult patient INHALE 2 SPRAYS IN EACH NOSTRIL ONCE DAILY 48 g 1 025 2024 Discontinued albuterol (Ventolin HFA) 108 (90 Base) MCG/ACT inhaler INHALE 2 PUFFS EVERY 4 TO 6 HOURS NEEDED 18 g 3 025 2024 Discontinued gabapentin (Neurontin) 300 MG capsuleIndicati ons:Neuropathy TAKE 2 CAPSULES BY MOUTH THREE TIMES DAILY IN THE MORNING, EVENING AND BEDTIME 180 capsule 1 025 2024 Discontinued(R eorder (will not trigger notification to Pharmacy)) oxyCODONE-aceta minophen (Percocet) 5-325 MG tabletIndicatio ns:Other chronic pain TAKE 1 TABLET BY MOUTH EVERY TWELVE HOURS NEEDED FOR SEVERE PAIN 56 tablet 025 2024 Discontinued(R eorder (will not trigger notification to Pharmacy)) Active Problems Problem Noted Date Diagnosed Date Right hip pain 01/17/2025 Primary hypertrophic cardiomyopathy (CMS/HCC) Assessment & Plan (01/17/2025 1:13 PM EDT): [...] first consulting health care provider Morbid obesity (CMS/HCC) 06/01/2013 Chronic pain 06/01/2013 Depressive disorder 06/01/2013 Encounters Date Type Department Care Team Description 04/26/2025 Refill [facility] [address] [place] [address] Pretty Molina MD 04/23/2025 Refill [facility] [address] [place] [address] Pretty Molina MD 04/16/2025 1:00 PM EST Clinical Support [facility] [address] [place] [address] Sandra Boyd, RN Long-term current use of opiate analgesic (Primary Dx) 04/16/2025 Refill [facility] [address] [place] [address] Sandra Boyd, RN Long-term current use of opiate analgesic (Primary Dx) 04/16/2025 Travel 04/16/2025 Refill [facility] [address] [place] [address] Pretty Molina MD Type 2 diabetes mellitus with hyperglycemia, without long-term current use of insulin (HCC) 04/09/2025 Refill [facility] [address] [place] [address] Pretty Molina MD Vitamin D deficiency 04/09/2025 Refill [facility] [address] [place] [address] Pretty Molina MD Neuropathy 04/09/2025 Refill [facility] [address] [place] [address] Pretty Molina MD Vitamin D deficiency 04/05/2025 Refill [facility] [address] [place] [address] Pretty Molina MD Other chronic pain 04/05/2025 Refill [facility] [address] [place] [address] Pretty Molina MD Neuropathy 04/02/2025 Refill [facility] [address] [place] [address] Pretty Molina MD Cough in adult patient 03/12/2025 Refill [facility] [address] [place] [address] Pretty Molina MD Essential hypertension 03/09/2025 Refill [facility] [address] [place] [address] Pretty Molina MD Dry eye syndrome of bilateral lacrimal glands 03/07/2025 Refill [facility] [address] [place] [address] Pretty Molina MD 03/06/2025 Refill [facility] [address] [place] [address] Pretty Molina MD Other chronic pain 03/05/2025 Refill [facility] [address] [place] [address] Pretty Molina MD Type 2 diabetes mellitus with hyperglycemia, without long-term current use of insulin ([facility]) 03/04/2025 Orders Only [facility] [address] [place] [address] Pretty Molina MD 02/08/2025 Refill [facility] [address] [facility], [place] [phone] Pretty Molina MD Neuropathy 02/04/2025 Refill [facility] [address] [facility], [place] [phone] Pretty Molina MD Other chronic pain from Last 3 Months Immunizations Immunization Administration [...] Clinical Support [facility] [address] [place] [phone] Sandra Boyd, RN Health Maintenance Due Date Last Done Comments CT Colonography 1961 FIT DNA/Cologuard 1961 FIT 1961 FOBT 1961 Sigmoidoscopy 1961 Diabetes: Foot Exam 1971 Eye Exam 1971 Pneumococcal Vaccine: 50+ Years (1 of 2 - PCV) 1980 COVID-19 Vaccine (3 - season) 2025 10/30/2020, 10/02/2020 Influenza Vaccine (#1) 2025 , 04/15/2022, 03/28/2020, Additional history exists Lung Cancer Screening 04/24/2025 04/24/2024 Diabetes: Hemoglobin A1C 07/20/2025 025, 10/10/2024, 04/05/2024, Additional history exists Mammogram 07/25/2025 07/25/2024, 09/2022, 03/10/2022, Additional history exists Alcohol/Substance Use Screening 10/10/2025 10/10/2024 Disability Screening 10/10/2025 10/10/2024 SDOH Screening 01/09/2026 01/09/2025 Depression Screening 01/17/2026 01/17/2025, 01/18/20 25 Tobacco Screening 01/17/2026 01/17/2025 Lipid Panel 03/04/2026 03/04/2025, 03/0 11/2024, 01/10/2024, Additional history exists DTaP/Tdap/Td Vaccines (2 - Td or Tdap) 04/15/2026 04/15/2016 Cervical Cancer Screening 04/18/2028 HPV/Cotest 04/18/2028 04/18/2023, 04/19/2018 Pap Smear 04/18/2028 04/18/2023 Colonoscopy 11/13/2034 11/13/2024, 11/13/2024 Colorectal Cancer Screening 11/13/2034 Hepatitis B [...] Name Priority Date/Time Associated Diagnosis Comments POCT HECTOR-14 URINE DRUG SCREEN Routine 04/16/2025 1:02 PM EST Long-term current use of opiate analgesic US PELVIS TRANSVAGINAL Routine 3:29 PM EDT VITAMIN B12 Routine 03/04/2025 2:23 PM EDT LIPID PANEL, STANDARD Routine 03/04/2025 2:23 PM EDT ALBUMIN, RANDOM URINE W/CREATININE Routine 03/04/2025 2:15 PM EDT POCT GLYCATED HEMOGLOBIN, TOTAL Routine 01/17/2025 10:46 AM EDT Type 2 diabetes mellitus with hyperglycemia, without long-term current use of insulin ([facility]) HM COLONOSCOPY Routine 11/13/2024 BI MAMMOGRAM SCREENING TOMOSYNTHESIS BILATERAL Routine 07/25/2024 [...] to Health Maintenance Results * (ABNORMAL) POCT HECTOR-14 Urine Drug Screen (04/16/2025 1:02 PM EST) THC Negative Negative Cocaine Screen, Urine Negative Negative Opiate Screen, Urine Negative Negative Methamphetamine Screen Urine Negative Negative Amphetamine Screen, Urine Negative Negative Benzodiazepines Screen, Urine Negative Negative Barbiturate Screen, Urine Negative Negative Methadone Screen, Urine Negative Negative Buprenophine Screen, Urine Negative Negative TCA, Urine Negative Negative MDMA Urine Negative Negative ng/mL Oxycodone Screen, Urine Positive(A) Negative Comment:[employer] pt on Percocet Phencyclidine (PCP), Urine Negative Negative Propoxyphene, Urine Negative Negative Fentanyl, Urine Negative Negative Urine Urine specimen obtained by clean catch procedure / Unknown 04/16/2025 1:02 PM EST Sandra Watt RN - 04/16/2025 1:02 PM EST UTOX cup Lot#[id number] Exp. 03/19/26 Internal Pass Control Pretty Zayas MD POINT OF CARE TEST EN TER/EDIT ORDERABLES Final Result * US Pelvis Transvaginal (03/04/2025 3:29 PM EDT) Anatomical Region Laterality Modality Pelvis Ultrasound 03/04/2025 3:29 PM EDT Narrative 03/05/2025 7:42 AM EDT [address] [address] Ultrasound Report Signed Patient: Violet Pascal MR#: [id number] : 1960 Acct:[id number] Age/Sex: 64 / F ADM Date: 03/04/25 Loc: HO.US Attending Dr: Ramesh Gurrola MD Ordering Physician: Ramesh Gurrola MD Date of Service: 03/04/25 Procedure(s): US pelvic and transvaginal Accession Number(s): [id number] cc: Prtety Molina MD; Ramesh Gurrola MD Reason for Exam: D25.9 - Leiomyoma of uterus, unspecified EXAMINATION: US PELVIS CLINICAL INFORMATION: Leiomyoma of uterus COMPARISON: Ultrasound of the pelvis 07/20/2024 TECHNIQUE: Ultrasound of the pelvis is performed using both transabdominal and transvaginal transducers along with Doppler. Transvaginal imaging is performed due to inadequate visualization transabdominally. FINDINGS: Uterus: The uterus is anteverted , anteflexed and measures 7.4 x 2.8 x 3.7 cm. The double wall endometrial thickness is 0.2 cm. There is minimal fluid seen within the endometrial canal. There are small nabothian cysts with calcification seen in the cervix. The uterus is smooth in contour and has normal myometrial echogenicity. There is a hypoechoic lesion in the fundus measuring 1.0 x 1.1 x 0.9 seen. Previously it measured 0.9 x 1.2 x 1.2 cm. No additional lesions seen.. Adnexa: Both ovaries are visualized. There is normal color flow to the adnexa. There is no ovarian torsion. There is no pelvic ascites or fluid collection. Right ovary is not visualized. Previously right ovary measured 2.4 x 1.7 x 0.8 cm. Left ovary measures 0.8 x 0.5 x 0.7 cm. Volume 0.2 mL. Previously left ovary was not visualized US/US pelvic and transvaginal IMPRESSION: Unremarkable uterus. Small nabothian cyst with calcification in cervix. Left ovary appears unremarkable. Right ovary is not seen. Electronically signed by: Paul Stevens MD 03/05/2025 07:39 AM EDT Dictated By: Paul Stevens MD Signed By: <Electronically signed by Paul Stevens MD in OV> 03/05/25 0739 DD/ 1529 TD/TT: 03/04/25 1542 Mine [employer]: ELVIA Procedure Note Donotuseinterpreter, Image - 03/05/[address] [address] Ultrasound Report Signed Patient: Abraham Pascal#: [id number] : 1960cct:[id number] Age/Sex: 64 / FADM Date: 03/04/25 Loc: HO.US Attending Dr: Ramesh Gurrola MD Ordering Physician: Ramesh Gurrola MD Date of Service: 03/04/25 Procedure(s): US pelvic and transvaginal Accession Number(s): [id number] cc: Pretty Molina MD; Ramesh Gurrola MD Reason for Exam: D25.9 - Leiomyoma of uterus, unspecified EXAMINATION: US PELVIS CLINICAL INFORMATION: Leiomyoma of uterus COMPARISON: Ultrasound of the pelvis 07/20/2024 TECHNIQUE: Ultrasound of the pelvis is performed using both transabdominal and transvaginal transducers along with Doppler. Transvaginal imaging is performed due to inadequate visualization transabdominally. FINDINGS: Uterus: The uterus is anteverted , anteflexed and measures 7.4 x 2.8 x 3.7 cm. The double wall endometrial thickness is 0.2 cm. There is minimal fluid seen within the endometrial canal. There are small nabothian cysts with calcification seen in the cervix. The uterus is smooth in contour and has normal myometrial echogenicity. There is a hypoechoic lesion in the fundus measuring 1.0 x 1.1 x 0.9 seen. Previously it measured 0.9 x 1.2 x 1.2 cm. No additional lesions seen.. Adnexa: Both ovaries are visualized. There is normal color flow to the adnexa. There is no ovarian torsion. There is no pelvic ascites or fluid collection. Right ovary is not visualized. Previously right ovary measured 2.4 x 1.7 x 0.8 cm. Left ovary measures 0.8 x 0.5 x 0.7 cm. Volume 0.2 mL. Previously left ovary was not visualized US/US pelvic and transvaginal IMPRESSION: Unremarkable uterus. Small nabothian cyst with calcification in cervix. Left ovary appears unremarkable. Right ovary is not seen. Electronically signed by: Paul Stevens MD 03/05/2025 07:39 AM EDT Dictated By: Paul Stevens MD Signed By: <Electronically signed by Paul Stevens MD in OV> 03/05/25 0739 DD/ 1529 TD/TT: 03/04/25 1542 Mine Boss: ELVIA [employer] External Provider IMG US PROCEDURES Final Result * Vitamin B12 (03/04/2025 2:23 PM EDT) Vitamin B12 505 200 - 900 pg/mL [facility] Comment:NORMAL 200-900 PG/ML INDETERMINATE 160-199 PG/ML DEFICIENT < 160 PG/ML 03/04/2025 2:23 PM EDT 03/04/2025 2:23 PM EDT Pretty Zayas MD LAB BLOOD ORDERABLES Final Result [facility] [address] [place] [phone] * (ABNORMAL) Lipid Panel, Standard (03/04/2025 2:23 PM EDT) Triglycerides 184(H) <150 mg/dL [facility] Comment:Slight Lipemia.Jimmy able Triglyceride: less than 150 mg/dLBorderline High Triglyceride 150-199 mg/dLHigh Triglyceride: 200-499 mg/dLVery High Triglyceride: greater than or equal to 5OO mg/dL Cholesterol 151 <200 mg/dL [facility] Comment:Desirable Cholestero l: less than 200 mg/dLBorderline High Cholesterol: 200-239 mg/dLHigh Cholesterol: greater than 239 mg/dL LDL Cholesterol Calculated 77 <100 mg/dL [facility] Comment:Desirable LDL: less than 100 mg/dLNear Optimal/Above Optimal LDL: 110- 129 mg/dLBorderline High LDL: 130-159 mg/dLHigh LDL: 160-189 mg/dLVery High LDL: greater than or equal to 190 mg/dL HDL Cholesterol 38(L) >40 mg/dL [facility] Comment:Desirable HDL: great er than 40 mg/dL Note: This HDL assay may give artificially low results in patients with liver disease. 03/04/2025 2:23 PM EDT 03/04/2025 2:23 PM EDT us Generic External Data Provider LAB BLOOD ORDERAB LES Final Result Performing Organization Address [facility] Co de Phone Number [facility] [address] [place] [phone] * (ABNORMAL) Albumin, Random Urine W/Creatinine (03/04/2025 2:15 PM EDT) Pathologist [facility] Creatinine, Urine 123.41 mg/dL [facility] Microalbumin Urine 106.0 mg/L [facility] Microalbum Creatinine Ratio Ur 85.8(H) <30 ug/mg cr [facility] Comment:Albumin/Creatinine R atio Reference Ranges: Normal: < 30 ug/mg creatinine Microalbuminuria: 30 - 300 ug/mg creatinineClinical Albuminuria: > 300 ug/mg creatinine 03/04/2025 2:15 PM EDT 03/04/2025 2:57 PM EDT us Pretty Zayas MD LAB URINE ORDERABLES Final Result Performing Organization Address [facility] Co de Phone Number [facility] [address] [place] [phone] * (ABNORMAL) POCT HGB A1C (01/17/2025 10:46 AM EDT) Pathologist [facility] Hemoglobin A1C 6.4(A) 4.0 - 5.7 % QC Media Lot # [id number] Lot# Expiration Date [id number] Blood 01/17/2025 10:4 6 AM EDT Pretty Zayas MD POINT OF CARE TEST EN TER/EDIT ORDERABLES Final Result * Hm Colonoscopy (11/13/2024) Pathologist [facility] Colonoscopy Normal Normal Narrative Kristi Ford - 11/13/2024 Recommended 10 years. See see external hospital admission note on 11/13/2024 us Historical Provider HEALTH MAINTENANCE Final Result * BI Mammogram Screening Tomosynthesis Bilateral (07/25/2024 2:30 PM EST) Anatomical Region Laterality Modality Breast Bilateral Mammography 07/25/2024 2:30 PM EST Narrative 08/03/2024 4:35 PM EST [place] [address] [place] [address] Mammography Report Signed Patient: Violet Pascal MR#: [id number] : 1960 Acct:[id number] Age/Sex: 64 / F ADM Date: 07/25/24 Loc: HO.MAMMO Attending Dr: Pretty Zayas MD Ordering Physician: Pretty Molina MD Results: 2Benign Findings Date of Service: 07/25/24 Follow Up: 1 Year From [facility] Mammogram Procedure(s): MM tomosynthesis screening BI Accession Number(s): [id number] cc: Pretty Molina MD EXAMINATION: MM SCREENING [...] 08/03/24 1632 DD/ 1430 TD/TT: 07/25/24 1446 Mine Boss: Procedure Note Donotuseinterpreter, Image - 08/03/20[facility] [address] [place], [place] [address] Mammography Report Signed Patient: Abraham Pascal#: [id number] : 1960cct:[id number] Age/Sex: 64 / FADM Date: 07/25/24 Loc: HO.MAMMO Attending Dr: Pretty Zayas MD Ordering Physician: Pretty Molina MDResults: 2Benign Findings Date of Service: 07/25/24Follow Up: 1 Year From Orig in[facility] Mammogram Procedure(s): MM tomosynthesis screening BI Accession Number(s): [id number] cc: Pretty Molina MD EXAMINATION: MM SCREENING [...] 08/03/24 1632 DD/ 1430 TD/TT: 07/25/24 1446 Mine Boss: us Pretty Zayas MD IMG BI PROCEDURES Fin al Result * HPV mRNA E6/E7 w/Reflex to HPV Genotypes 16, 18/45 (04/18/2023 2:08 PM EST) HPV nRNA E6/E7 Not Detected Not Detected [facility] Comment:Methodology: Transcr iption-Mediated AmplificationThis assay detects E6/E7 viral messenger RNA (mRNA) from 14high-risk HPV types (16,18,31,33,35,39,45,51,52,56,58,59,66,68).Cervical sources are required for HPV testing.If a vaginal source from a patient who has had atotal hysterectomy with removal of cervix wassubmitted, please contact the testing laboratoryfor alternative testing options.For additional information, please refer [email or web address](This link if provided for information/educational purposes only.)THIS TEST WAS PERFORMED AT:[employer] [place] [phone] ANNE MD HPV mRNA E6/E7 [facility] HPV 16 RNA [facility] HPV 18/45 RNA [facility] 04/18/2023 2:08 PM EST 04/19/2023 8:20 AM EST us Cristian REYES LAB CYTOLOGY ORDERABLES F inal Result [facility] [address] [place] [phone] * Pap Smear (04/18/2023 2:08 PM EST) 04/18/2023 2:08 PM EST 04/19/2023 8:20 AM EST Sridhar [facility] - 04/26/2023 1:40 PM EST ----- ------- Name: Violet Pascal Age/Sex: 63/F : 1960 Unit#: [id number] Attend Dr: CRISTIAN BRIONES CNM Re04/18/23 Status: [facility] REF Location: [facility] SHAWHHCLNP Disch: ----- ------- SPEC : [id number] RECD: 04/19/23 STATUS: MARYLIN WOODALL NUM: [id number] YASMINE: 04/18/23-1408 [facility] DR: CRISTIAN BRIONES CNM ENTERED: 04/19/23 SP TYPE: Pap [facility] DR: ORDERED: Pap Smear Interpretation Satisfactory for evaluation. No endocervical cells seen. Cytolysis noted. Negative for intraepithelial lesion or malignancy. HPV mRNA E6/E7: NOT DETECTED This assay detects E6/E7 viral messenger RNA (mRNA) from 14 high-risk HPV types (16, 18, 31, 33, 35, 39, 45, 51, 52, 56, 58, 59, 66, 68) HPV testing performed by [facility], [place], [place]. See reference laboratory pion of the EMR for entire report. Clinical Information LMP: Postmenopausal Previous PAP test: Unknown date/findings Material Received ThinPrep-Cervical ----- ------- Signed (signature on file) MARIOLA Walker ([facility]) 04/26/23 1340 ----- ------- END OF REPORT Cristian Briones [facility] CYTOLOGY ORDERABLES F inal Result [facility] [address] [place] [phone] * Hepatitis C Antibody (02/03/2021 12:01 PM EDT) [facility] Hepatitis C Antibody Nonreactive Nonreactive [facility] Comment: Antibodies to HCV not detected; does not exclude early acute HCV infection. HIV AB/AG Nonreactive Nonreactive [facility] Comment: HIV-1 p24 [...] of detection of this assay. [facility] [employer] HIV Ag/Ab Combo assay result and supplemental assay results should be interpreted in conjunction with the patient's clinical presentation, history and other laboratory results. If the results are inconsistent with clinical evidence, additional testing is suggested to confirm the result. Hepatitis B Surface Antigen Negative Negative [facility] 02/03/2021 12:0 1 PM EDT us Ramesh Gurrola MD HISTORICAL/NON ORDERABLE LABS Fi nal Result [facility] [address] [place] [id number], from Last 3 Months or Most Recently Relevant to Health Maintenance Insurance [employer] C3 Care Teams Director Of Religious Activities Relationship Specialty Start Date End Date Pretty Molina MD [address] [place] [address] PCP - General Family Medicine 12/24/20 Guero Burns, Mario [address] [place] [address] Pharmacist Internal Medicine 09/20/24
--- OUTSIDE RECORDS SUMMARY | 2025-05-02 02:48 | XMS_ITS | Encounter Summary ---
Author Organization [employer] Address 75 [facility] 7 [place] [address] Care Team Providers Care Head Of It Name Role Phone Pretty Molina MD Primary Care Provide r Guero Burns PharmD Unavailable [phone] Reason for Visit * Reason Onset Date Comments Med Refill 01/05/2023 Encounter Details Date Type Department Care Team (Late st Contact Info) Description 01/05/2023 Telephone [facility] MEDICINE [address] [place] [address] Pretty Molina MD [address] [place], [place] [phone] Med Refill Social History Tobacco Use Types [...] Description 08/14/2025 2:00 PM EST Clinical Support [facility] MEDICINE [address] [place] [address] Sandra Boyd, RN documented as of this encounter Visit Diagnoses Not on filedocumented in this encounter Additional Health Concerns Assessment Noted Time PHQ-9 Depression Total Score: 12 023 3:08 PM EDT documented as of this encounter Care Teams Head Of It Relationship Specialty Start Date End Date Pretty Molina MD [address] [place] [address] PCP - General Family Medicine 12/24/20 Guero Burns, PoloD [address] [place] [address] Pharmacist Internal Medicine 09/20/24 documented as of this encounter
--- OUTSIDE RECORDS SUMMARY | 2025-05-02 02:48 | XMS_ITS | Encounter Summary ---
Author Organization [employer] Address 75 [facility] 7t [place] [address] Care Team Providers Care Research Geologist Name Role Phone Pretty Molina MD Primary Care Provide r Guero Burns PharmD Unavailable [phone] Reason for Visit * Reason Onset Date Comments Results 11/14/2024 Encounter Details Date Type Department Care Team (Late st Contact Info) Description 11/14/[address] [facility] MEDICINE [address] [place] [address] Pretty Molina MD [address] [place], [place] [phone] Results Social History Tobacco Use Types Packs/Day [...] 9:26 AM EDT TC placed to patient [phone] who reports she did not call in regards to obtaining results. Patient called to inquire if she has any upcoming appointments. RN informed patient of SANITARY AIDE RN visit on 12/05/24 at 2pm. Patient verbalized understanding and did not have any further questions. Patient to f/u PRN. * Telephone Encounter - Anastacio Montano - 11/14/2024 9:16 AM EDT TC from pt requesting call back regarding Results. Type of results: Labs Date when done: 11/13/24 Facility: [facility] Labs (Danish Speaker) documented in this encounter Plan of Treatment Upcoming Encounters Date Type Department Care Team ([facility] st Contact Info) Description 08/14/2025 2:00 PM EST Clinical Support [facility] MEDICINE [address] [place] [address] Sandra Boyd, RN documented as of this encounter Visit Diagnoses Not on filedocumented in this encounter Additional Health Concerns Assessment Noted Time PHQ-9 Depression Total Score: 4 01/06/20 24 2:22 PM EDT documented as of this encounter Care Teams Research Geologist Relationship Specialty Start Date End Date Pretty Molina MD [address] [place] [address] PCP - General Family Medicine 12/24/20 Guero Burns, PoloD [address] [place] [address] Pharmacist Internal Medicine 09/20/24 documented as of this encounter
--- OUTSIDE RECORDS SUMMARY | 2025-05-02 02:48 | XMS_ITS | Encounter Summary ---
Author Organization [employer] Address 75 [facility] 7t [place] [address] Care Team Providers Care Pants Maker Name Role Phone Pretty Molina MD Primary Care Provide r Guero Burns PharmD Unavailable [phone] Reason for Visit * Reason Comments Med Refill Encounter Details Date Type Department Care Team ([facility] st Contact Info) Description 10/17/2024 Refill [facility] MEDICINE [address] [place], [place] [phone] Guero Burns, PharmD [address] [place], [place] [phone] Tobacco dependence Social History Tobacco Use Types [...] Description 08/14/2025 2:00 PM EST Clinical Support [facility] MEDICINE [address] [place] [address] Sandra Boyd, TONY documented as of this encounter Visit Diagnoses Diagnosis Tobacco dependence Tobacco use disorder documented in this encounter Additional Health Concerns Assessment Noted Time PHQ-9 Depression Total Score: 4 01/06/20 24 2:22 PM EDT documented as of this encounter Care Teams Pants Maker Relationship Specialty Start Date End Date Pretty Molina MD [address] [place] [address] PCP - General Family Medicine 12/24/20 Guero Burns, Mario [address] [place] [address] Pharmacist Internal Medicine 09/20/24 documented as of this encounter
--- OUTSIDE RECORDS SUMMARY | 2025-05-02 02:48 | XMS_ITS | Encounter Summary ---
Author Organization [employer] Address 75 [facility] 7t [place] [address] Care Team Providers Care Phlebotomist Prn Name Role Phone Pretty Molina MD Primary Care Provide r Guero Burns PharmD Unavailable [phone] Reason for Visit * Reason Comments Med Refill Encounter Details Date Type Department Care Team ([facility] st Contact Info) Description 04/15/2024 Refill [facility] CHC MED & PEDS [address] [place] [address] Pretty Molina MD [address] [place] [address] Social History Tobacco Use Types Packs/Day Years [...] [facility] [address] [place] [address] Sandra Boyd, RN documented as of this encounter Visit Diagnoses Not on filedocumented in this encounter Additional Health Concerns Assessment Noted Time PHQ-9 Depression Total Score: 4 01/06/20 24 2:22 PM EDT documented as of this encounter Care Teams Phlebotomist Prn Relationship Specialty Start Date End Date Pretty Molina MD [address] [place] [address] PCP - General Family Medicine 12/24/20 Guero Burns, PoloD [address] [place] [address] Pharmacist Internal Medicine 09/20/24 documented as of this encounter
--- OUTSIDE RECORDS SUMMARY | 2025-05-02 02:48 | XMS_ITS | Encounter Summary ---
Author Organization [employer] Address 75 [facility] 7t [place] [address] Care Team Providers Care Director Patient Financial Services Name Role Phone Pretty Molina MD Primary Care Provide r Guero Burns PharmD Unavailable [phone] Reason for Visit * Reason Comments Med Refill Encounter Details Date Type Department Care Team ([facility] st Contact Info) Description 04/21/2024 Refill [facility] MEDICINE [address] [place] [address] Pretty Molina MD [address] [place] [address] Neuropathy Social History Tobacco Use Types Packs/Day [...] Description 08/14/2025 2:00 PM EST Clinical Support [facility] MEDICINE [address] [place] [address] Sandra Boyd, RN documented as of this encounter Visit Diagnoses Diagnosis Neuropathy Mononeuritis of unspecified site documented in this encounter Additional Health Concerns Assessment Noted Time PHQ-9 Depression Total Score: 4 01/06/20 24 2:22 PM EDT documented as of this encounter Care Teams Director Patient Financial Services Relationship Specialty Start Date End Date Pretty Molina MD [address] [place] [address] PCP - General Family Medicine 12/24/20 Guero Burns, Mario [address] [place] [address] Pharmacist Internal Medicine 09/20/24 documented as of this encounter
--- OUTSIDE RECORDS SUMMARY | 2025-05-02 02:48 | XMS_ITS | Encounter Summary ---
Author Organization [employer] Address 75 [facility] 7t [place] [address] Care Team Providers Care Recycling Assistant Name Role Phone Pretty Molina MD Primary Care Provide r Guero Burns PharmD Unavailable [phone] Reason for Visit * Reason Comments Med Refill Encounter Details Date Type Department Care Team ([facility] st Contact Info) Description 12/06/2023 Refill [facility] MEDICINE [address] [place] [address] Pretty Molina MD [address] [place] [address] Other chronic pain Social History Tobacco Use [...] Description 08/14/2025 2:00 PM EST Clinical Support [facility] MEDICINE [address] [place] [address] Sandra Boyd, TONY documented as of this encounter Visit Diagnoses Diagnosis Other chronic pain documented in this encounter Additional Health Concerns Assessment Noted Time PHQ-9 Depression Total Score: 12 023 3:08 PM EDT documented as of this encounter Care Teams Recycling Assistant Relationship Specialty Start Date End Date Pretty Molina MD [address] [place] [address] PCP - General Family Medicine 12/24/20 Guero Burns, PoloD [address] [place] [address] Pharmacist Internal Medicine 09/20/24 documented as of this encounter
--- OUTSIDE RECORDS SUMMARY | 2025-05-02 02:48 | XMS_ITS | Encounter Summary ---
Author Organization [employer] Address 75 [facility] 7t [place] [address] Care Team Providers Care Net Lead Developer Name Role Phone Pretty Molina MD Primary Care Provide r Guero Burns PharmD Unavailable [phone] Reason for Visit * Reason Comments Med Refill Encounter Details Date Type Department Care Team ([facility] st Contact Info) Description 04/05/2025 Refill [facility] MEDICINE [address] [place] [address] Pretty Molina MD [address] [place], [place] [phone] Neuropathy Social History Tobacco Use Types Packs/Day [...] Description 08/14/2025 2:00 PM EST Clinical Support [facility] MEDICINE [address] [place] [address] Sandra Boyd, TONY documented as of this encounter Visit Diagnoses Diagnosis Neuropathy Mononeuritis of unspecified site documented in this encounter Additional Health Concerns Assessment Noted Time PHQ-9 Depression Total Score: 0 01/18/20 25 10:45 AM EDT documented as of this encounter Care Teams Net Lead Developer Relationship Specialty Start Date End Date Pretty Molina MD [address] [place] [address] PCP - General Family Medicine 12/24/20 Guero Burns PharmD [address] [place] [address] Pharmacist Internal Medicine 09/20/24 documented as of this encounter
--- OUTSIDE RECORDS SUMMARY | 2025-05-02 02:48 | XMS_ITS | Encounter Summary ---
Author Organization [employer] Address 75 [facility] 7t [place] [address] Care Team Providers Care Tube Turner Name Role Phone Pretty Molina MD Primary Care Provide r Guero Burns PharmD Unavailable [phone] Reason for Visit * Reason Comments Med Refill Encounter Details Date Type Department Care Team (Late st Contact Info) Description 12/27/2022 Refill [facility] MEDICINE [address] [place] [address] Jocelyn Bender DO [address] [place] [address] Seasonal allergic rhinitis, unspecified trigger Social History [...] Description 08/14/2025 2:00 PM EST Clinical Support [facility] MEDICINE [address] [place] [address] Sandra Boyd, RN documented as of this encounter Visit Diagnoses Diagnosis Seasonal allergic rhinitis, unspecified trigger documented in this encounter Additional Health Concerns Assessment Noted Time PHQ-9 Depression Total Score: 12 023 3:08 PM EDT documented as of this encounter Care Teams Tube Turner Relationship Specialty Start Date End Date Pretty Molina MD [address] [place] [address] PCP - General Family Medicine 12/24/20 Guero Burns, PoloD [address] [place] [address] Pharmacist Internal Medicine 09/20/24 documented as of this encounter
--- OUTSIDE RECORDS SUMMARY | 2025-05-02 02:48 | XMS_ITS | Encounter Summary ---
Author Organization [employer] Address 75 [facility] 7t [place] [address] Care Team Providers Care Progressive Die Maker Name Role Phone Pretty Molina MD Primary Care Provide r Guero Burns PharmD Unavailable [phone] Reason for Visit * Reason Comments Med Refill Encounter Details Date Type Department Care Team ([facility] st Contact Info) Description 10/17/2024 Refill [facility] MEDICINE [address] [place] [address] Pretty Molina MD [address] [place], [place] [phone] Neuropathy Social History Tobacco Use Types Packs/Day [...] Support [facility] MEDICINE [address] [place] [address] Sandra Boyd, TONY documented as of this encounter Visit Diagnoses Diagnosis Neuropathy Mononeuritis of unspecified site documented in this encounter Additional Health Concerns Assessment Noted Time PHQ-9 Depression Total Score: 4 01/06/20 24 2:22 PM EDT documented as of this encounter Care Teams Progressive Die Maker Relationship Specialty Start Date End Date Pretty Molina MD [address] [place] [address] PCP - General Family Medicine 12/24/20 Guero Burns PharmD [address] [place] [address] Pharmacist Internal Medicine 09/20/24 documented as of this encounter
--- OUTSIDE RECORDS SUMMARY | 2025-05-02 02:48 | XMS_ITS | Encounter Summary ---
Author Organization [employer] Address 75 [facility] 7t [place] [address] Care Team Providers Care Compounding Pharmacy Technician Name Role Phone Pretty Molina MD Primary Care Provide r Guero Burns PharmD Unavailable [phone] Reason for Visit * Reason Comments Med Refill Encounter Details Date Type Department Care Team ([facility] st Contact Info) Description 04/09/2025 Refill [facility] CHC MED & PEDS [address] [place] [address] Pretty Molina MD [address] [place] [address] Vitamin D deficiency Social History Tobacco Use Types Packs/Day Years [...] Description 08/14/2025 2:00 PM EST Clinical Support [facility] MEDICINE [address] [place] [address] Sandra Boyd, TONY documented as of this encounter Visit Diagnoses Diagnosis Vitamin D deficiency documented in this encounter Additional Health Concerns Assessment Noted Time PHQ-9 Depression Total Score: 0 01/18/20 25 10:45 AM EDT documented as of this encounter Care Teams Compounding Pharmacy Technician Relationship Specialty Start Date End Date Pretty Molina MD [address] [place] [address] PCP - General Family Medicine 12/24/20 Guero Burns PharmD [address] [place] [address] Pharmacist Internal Medicine 09/20/24 documented as of this encounter
--- OUTSIDE RECORDS SUMMARY | 2025-05-02 02:48 | XMS_ITS | Encounter Summary ---
Author Organization [employer] Address 75 [facility] 7t [place] [address] Care Team Providers Care House Player Name Role Phone Pretty Molina MD Primary Care Provide r Guero Burns PharmD Unavailable [phone] Encounter Details Date Type Department Care Team (Late Contact Info) Description 11/12/2022 Orders Only [facility] CHC MED & PEDS [address] [place] [address] Jocelyn Fleming LPN Social History Tobacco Use [...] Department Care Team (Late Contact Info) Description 08/14/2025 2:00 PM EST Clinical Support [facility] MEDICINE [address] [place] [address] Sandra Boyd, TONY documented as of this encounter Visit Diagnoses Not on filedocumented in this encounter Care Teams House Player Relationship Specialty Start Date End Date Pretty Molina MD [address] [place] [address] PCP - General Family Medicine 12/24/20 Guero Burns, PharmD [address] [place] [address] Pharmacist Internal Medicine 09/20/24 documented as of this encounter
--- OUTSIDE RECORDS SUMMARY | 2025-05-02 02:48 | XMS_ITS | Encounter Summary ---
Author Organization [employer] Address 75 [facility] 7t [place] [address] Care Team Providers Care Drafter Marine Name Role Phone Pretty Molina MD Primary Care Provide r Guero Burns PharmD Unavailable [phone] Reason for Visit * Reason Comments Med Refill Encounter Details Date Type Department Care Team (Late st Contact Info) Description 11/24/2022 Refill [facility]ULT DENTAL [address] [place] [address] Eliezer Richardson, ROBERT [address] [place] [address] Social History Tobacco Use Types Packs/Day Years [...] 11/24/2022 3:08 PM Vicki Gregory MA * How difficult have these problems made it for you to do your work, take care of things at home, or get along with other people? Answer Date of Assessment Author Somewhat difficult 11/24/2022 3:08 PM Vicki Gregory [...] Nearly every day 11/24/2022 3:08 PM Vicki Gregoyr [place] Feeling tired or having little energy [...] Health Questionnaire-9 Score 12 11/24/2022 3:08 PM Vicki Gregory MA documented as of this encounter Miscellaneous Notes * Telephone Encounter - Eliezer Richardson DDS - 11/24/2022 9:23 AM EDT Approving, but needs appt for additional refills. documented in this encounter Plan of Treatment Upcoming Encounters Date Type Department Care Team (Late st Contact Info) Description 08/14/2025 2:00 PM EST Clinical Support [facility] MEDICINE [address] [place] [address] Sandra Boyd, TONY documented as of this encounter Visit Diagnoses Not on filedocumented in this encounter Additional Health Concerns Assessment Noted Time PHQ-9 Depression Total Score: 12 023 3:08 PM EDT documented as of this encounter Care Teams Drafter Marine Relationship Specialty Start Date End Date Pretty Molina MD [address] [place] [address] PCP - General Family Medicine 12/24/20 Guero Burns, PoloD [address] [place] [address] Pharmacist Internal Medicine 09/20/24 documented as of this encounter
--- OUTSIDE RECORDS SUMMARY | 2025-05-02 02:48 | XMS_ITS | Encounter Summary ---
Author Organization [employer] Address 75 [facility] 7t [place] [address] Care Team Providers Care Retail Merchandiser Technician Name Role Phone Pretty Molina MD Primary Care Provide r Guero Burns PharmD Unavailable [phone] Reason for Visit * Reason Onset Date Comments Nurse Triage 04/26/2024 Encounter Details Date Type Department Care Team (Late st Contact Info) Description 04/26/2024 Telephone [facility] MEDICINE [address] [place] [address] Pretty Molina MD [address] [place] [address] Nurse Triage Social History Tobacco Use Types [...] 12:18 PM EST Please obtain note from [facility] ED visit 04/24/24, Upcoming appt with PCP tomorrow at 11am. * Telephone Encounter - Valeria Hooper LPN - 04/26/2024 11:58 AM EST Triage call returned with BLS #[id number] Yonathan. Patient reports that she was seen on 04/19/24. Patient is reporting following her Flu shot she has been feeling delicate . Chart shows Flu given in March. Call dropped. Return call with Printing Machine Operator Neto Rodgers78. Patient reports seen at [facility] and not improved with cough and congestion. Has no reported fever. Patient then reports presented to [facility] ED on 04/24/24 and was given scan [...] caller accepted this outcome. Contact pt at [phone] documented in this encounter Plan of Treatment Upcoming Encounters Date Type Department Care Team (Late st Contact Info) Description 08/14/2025 2:00 PM EST Clinical Support [facility] MEDICINE [address] [place] [address] Sandra Boyd RN documented as of this encounter Visit Diagnoses Not on filedocumented in this encounter Additional Health Concerns Assessment Noted Time PHQ-9 Depression Total Score: 4 01/06/20 24 2:22 PM EDT documented as of this encounter Care Teams Retail Merchandiser Technician Relationship Specialty Start Date End Date Pretty Molina MD [address] [place] [address] PCP - General Family Medicine 12/24/20 Guero Burns, Mario [address] [place] [address] Pharmacist Internal Medicine 09/20/24 documented as of this encounter
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
--- OUTSIDE RECORDS SUMMARY | 2025-05-02 02:48 | XMS_ITS | Encounter Summary ---
Author Organization [employer] Address [address] [place] [address] Care Team Providers Care Aerospace Assembler Name Role Phone Pretty Molina MD Primary Care Provide r Guero Burns PharmD Unavailable [phone] Reason for Visit * Reason Comments Med Refill Encounter Details Date Type Department Care Team ([facility] st Contact Info) Description 04/05/2024 Refill [facility] [address] [place] [address] Pretty Molina MD [address] [place] [address] Other chronic pain Social History Tobacco Use [...] Description 08/14/2025 2:00 PM EST Clinical Support [facility] [address] [place] [address] Sandra Boyd, RN documented as of this encounter Visit Diagnoses Diagnosis Other chronic pain documented in this encounter Additional Health Concerns Assessment Noted Time PHQ-9 Depression Total Score: 4 01/06/20 24 2:22 PM EDT documented as of this encounter Care Teams Aerospace Assembler Relationship Specialty Start Date End Date Pretty Molina MD [address] [place] [address] PCP - General Family Medicine 12/24/20 Guero Burns, Mario [address] [place] [address] Pharmacist Internal Medicine 09/20/24 documented as of this encounter
== END 2025-05-01 15:25 | disposition home or self-care (01) ==
LOC: HO.HOS 14:20
PROVIDERS: PCP Internal Medicine; Visit Provider Physician Assistant
DX: M47.26 Other spondylosis with radiculopathy, lumbar region (principal); M16.11 Unilateral primary osteoarthritis, right hip
CPT/HCPCS: 99203

== ENCOUNTER 2025-05-01 14:49 | Outpatient (REF) | payer MEDICAID, SELFPAY ==
--- NOTE | ~2025-05-01 | XR_ITS ---
EXAMINATION: XR LUMBOSACRAL SPINE CLINICAL INFORMATION: M54.50 - Low back pain, unspecified COMPARISON: Correlated to CT dated October 25, 2015. TECHNIQUE: AP and lateral views. FINDINGS: Multilevel small marginal osteophyte formation and multilevel endplate sclerosis throughout the axial skeleton. No acute cortical disruption or malalignment. Facet joint hypertrophy at L4-5 and L5-S1. Spina bifida occulta S1. Vascular calcifications, aorta. No lytic or blastic lesions. XR/XR lumbar spine 2-3V IMPRESSION: Multilevel thoracolumbar spondylosis pronounced at L4-5 and L5-S1. Electronically signed by: Yfn Cordova MD 05/01/2025 03:33 PM EST
== END 2025-05-01 14:50 | disposition home or self-care (01) ==
LOC: HO.HOSX 14:49
PROVIDERS: Visit Provider Physician Assistant
DX: M47.26 Other spondylosis with radiculopathy, lumbar region (principal); M16.11 Unilateral primary osteoarthritis, right hip
CPT/HCPCS: 72100; 99212

== ENCOUNTER → 2025-05-01 14:50 | Outpatient (BNV) | payer MEDICAID, SELFPAY | PROVIDERS: Visit Provider Radiology Diagnostic Radiology | DX: M47.815 Spondylosis without myelopathy or radiculopathy, thoracolumbar region (principal) | CPT/HCPCS: 72100 ==

== ENCOUNTER 2025-05-15 14:52 | Outpatient (AMB) | payer MEDICAID, SELFPAY ==
--- NOTE | 2025-05-15 15:15 | A.OFFVIS_ITS ---
Intake Visit Reasons: 6m/IC (set)UA+PVR) Intake Note: Patient is present for a 6 month follow up/IC Urology Medication:Estradiol, Myrbetriq Antibiotic Allergy:None Blood Thinner:None PVR:50ml Grease Man Required: Yes Grease Man Language: Motor Pool Clerk Name: Abelardo--[id number] Allergies morphine (MORPHINE) Allergy (Unknown, Verified 05/15/25 15:16) UNKNOWN HPI Comments Details: 05/15/25-- 09/20/24--Violet is a 63 year old female who is here for FU for LUTS pelvic pain, urgency. The patient is a [place] speaking female. Certified full time staff interpreter was present during the visit. She had previous cystoscopy hydrodistention 11/16/22, presenting with urinary frequency and nocturia. Past Medical history Fibromyalgia, Arthritis, Asthma, Back pain, Chronic vulvovaginitis. Continue Vistaril and Myrbetriq. FU 6 months. 03/22/24--Violet is a 64 year old female who is here for FU for LUTS pelvic pain, urgency. The patient is a [place] speaking female. Certified full time staff interpreter was present during the visit. She had previous cystoscopy hydrodistention 11/16/22, presenting with urinary frequency and nocturia. 09/22/23--Violet is a 63 year old female who is here for FU for LUTS pelvic pain, urgency. The patient is a [place] speaking female. Certified full time staff interpreter was present during the visit. Past Medical history Fibromyalgia, Arthritis, Asthma, Back pain, Chronic vulvovaginitis. She had previous cystoscopy hydrodistention 11/16/22, she is prescribed Vistaril 50 mg at bedtime and Myrbetriq 50 mg q.a.m.. She states that she will occasionally still get flare-ups of bladder pressure. I have reviewed the importance of avoiding dietary bladder irritants. Urinalysis 1+ trace protein, Blood 25 Alverto, leuk - tra ce; bladder scan PVR 79 mL Plan continue Vistaril 50 mg and Myrbetriq 50 mg, IC diet. follow-up in 6 months. 05/23/2023-- Violet is a 63 year old female who is here for FU for LUTS pelvic pain, urgency. The patient is a [place] speaking female. Certified full time staff interpreter was present during the visit. Past Medical history Fibromyalgia, Arthritis, Asthma, Back pain, Chronic vulvovaginitis The patient underwent cystoscopy hydrodistension procedure on 11/16/22 for pelvic pain and microscopic hematuria. The patient complains of daytime urinary frequency every 2-3 hours, denies urinary incontinence, nocturia 2-3x, denies hematuria, has intermittent dysuria, feeling of incomplete bladder emptying/pressure. I have discussed avoiding dietary bladder irritants, including to cut back on caffeine usage. She states she stopped the oxybutynin 15 mg because it was not helping, was treated with vesicare in the past, she states the vistaril 25 mg is beneficial. I will increase the vistaril to 50 mg, disussed pyridium prn dysuria, Trial myrbetriq to replace oxybutynin. Review of Tests: Imaging/Labs/Results-- 11/16/22 --Cysto/hydrodistention--Cystoscopy findings-- bladder capacity post d istention 875 milliliters. No glomerulations noted post distention. The patient stated that her bladder pain improved after the procedure 03/02/22--Renal US findings showed bilateral complex cyst. CAT scan results reviewed--05/10/2022- Suggestive of 7 mm complex cyst in the right kidney and bilateral simple cyst. There is no kidney stones. PFSH Medical History Subcutaneous mass Asymmetric septal hypertrophy Heart block atrioventricular Chronic pain Depression Vascular insufficiency Lichen Hip pain Foot pain Foot callus Cubital tunnel syndrome Chronic vulvovaginitis Carpal tunnel syndrome Burn scar contracture of upper arm Blurring of visual image Mood disorder Hyperlipidemia Renal cyst Hematuria of unknown cause Smoker Arthritis Back pain Diabetes GERD (gastroesophageal reflux disease) Fibromyalgia Anxiety and depression MARK on CPAP Chronic sinusitis Asthma Elevated cholesterol HTN (hypertension) Surgical History Hx of cystoscopy S/P lumpectomy of breast (04/20/21) Hx of colonoscopy Hx of dilation and curettage H/O tubal ligation History of skin graft Family History Father No problems noted. Mother No problems noted. 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 Female Reproductive History Menstrual Age of Menarche: 14 Results AMB Urinalysis, Automated UA Leukoctes 0 Yanni/uL Last Edit by Pam Moscoso on 05/15/25 16:23 UA Nitrite Negative Last Edit by Pam Moscoso on 05/15/25 16:23 UA Urobilinogen 0.2 mg/dL Last Edit by Pam Moscoso on 05/15/25 16:23 UA Protein 100 mg/dL Last Edit by Pam Moscoso on 05/15/25 16:23 UA pH 6.0 Last Edit by Pam Moscoso on 05/15/25 16:23 UA Blood 80 Alverto/uL Last Edit by Pam Moscoso on 05/15/25 16:23 UA Specific [place] 1.015 Last Edit by Pam Moscoso on 05/15/25 16:23 UA Ketone Positive Last Edit by Pam Moscoso on 05/15/25 16:23 UA Bilirubin 0 mg/dL Last Edit by Pam Moscoso on 05/15/25 16:23 UA Glucose 0 mg/dL Last Edit by Pam Moscoso on 05/15/25 16:23 Assessment & Plan Assessment & Plan Orders: Orders AMB Urinalysis Automated Today Z13.9 - Encounter for screening, unspecified AMB Post Void Residual by ultrasound Today R39.15 - Urgency of urination Medications: Changed From estradiol 0.01%(0.1mg/gram) 1 g vaginal 2XW To estradiol 0.01%(0.1mg/gram) use a pea sized amount on fingertip and apply vaginallybedtime; 42.5 grams 1RF Refilled hydroxyzine pamoate 25 - 50 mg (1 - 2 x 25 mg) PO BEDTIME 60 caps 3RF bladder discomfort, burning with urination mirabegron ER (Myrbetriq) 50 mg PO DAILY 90 tabs 3RF Coding
--- OUTSIDE RECORDS SUMMARY | 2025-05-15 17:45 | XMS_ITS | Clinical Summary ---
Author Organization [facility] Address [address] [place] [address] Phone Care Team Providers Care Software Developer Name Role Phone Pretty Molina MD [...] by mouth 2 times daily. Active ceramide 1,3,3-QO-romo-hyal ur (CeraVe PM) lotion,extended release Apply topically. [...] 2 times daily. Active miscellaneous medical supply [facility] [place] by Does not apply route. Active NICOTINE, [...] testing completed and was unremarkable Morbid obesity ([facility] V24, [facility] V28) 2018 Type 2 diabetes mellitus ([facility] V24, [facility] V 28) 01/23/2019 Surgical History Surgery Date Site/Laterality Comments TUBAL LIGATION PROCEDURE: HISTORICAL TUBAL LIGATION OTHER SURGICAL HISTORY PROCEDURE: [place] GRAFT COMPOSITE W/PRIMARY CLOSURE DONOR AREA Medical History Medical History Date Comments HTN (hypertension) DX:HTN (hyper tension) Depression DX:Depression Chronic pain DX:Chronic pain Obesity DX:Obesity 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[facility] V24, [facility] V28) DX:Microalbuminuric diabeti c nephropathy ([facility]) Hyperlipidemia DX:Hyperlipidemi a Carpal tunnel syndrome, bilateral DX:Carpal tunnel syndrome, bilateral Type 2 diabetes mellitus ( S/[facility] V24, [facility] V28) DX:Type 2 diabetes mellitus ([facility]) IBS (irritable bowel syndrome) D X:IBS (irritable [...] Last Done Comments Breast Cancer Screening 1961 Colorectal Cancer Screening: Colonoscopy 1961 Diabetes: Annual Foot Exam 1971 Diabetes: Annual Retina Eye Exam 1971 DTaP,Tdap,and Td Vaccines (1 - Tdap) 1980 Pneumococcal Vaccine: 50+ Ye ars (1 of 2 - PCV) 1980 Zoster Vaccines (1 of 2) 2011 HIV Screening 05/11/2022 Hepatitis C Screening 05/11/2022 Social Influencers of Health Screening 05/11/2022 Diabetes: Annual Urine Albumin-Creatinine Ratio (uACR) 05/27/2022 Diabetes: Blood Sugar Contro l Test (HGBA1C) 05/27/2022 07/20/2021 Depression Screening 06/13/2024 Diabetes: Annual GFR (Glomer ular Filtration Rate) 01/09/2025 01/10/2024 Hypertension/CHF/CAD Annual BMP Blood Test 01/09/2025 01/10/2024 COVID-19 Vaccine ( - 2024-2 6 season) 2025 Influenza Vaccine (#1) 2025 Cervical Cancer Screening: HPV 04/18/2028 04/18/2023 Cholesterol Screening (Lipid Panel) 01/09/2029 01/10/2024 RSV Immunization Adult Patie nts (1 - 1-dose 75+ series) 2036 HIB Vaccines Aged Out No longer eligi [...] * Annual BMP Blood Test (01/10/2024) Pathologist [facility] Annual BMP Blood Test abstracted [facility] Provider HEALTH MAINTENANCE Final Result * Lipid panel (01/10/2024) [facility] Triglycerides 0 mg/dL Comment:no interpretation Cholesterol 0 mg/dL Comment:no interpretation HDL 0 mg/dL Comment:no interpretation LDL Cholesterol 0 mg/dL Comment:no interpretation Blood Venous blood specimen / Unknown [facility] Provider LAB BLOOD ORDERABLES Teresa l Result * Cervical Cancer Screening: HPV (04/18/2023) [facility] Cervical Cancer Screening: HPV No interpreta tion,abstr acted [facility] Provider HEALTH MAINTENANCE Final Result * Hemoglobin A1c (07/20/2021) [facility] Hemoglobin A1C 0.0 % Comment:no interpretation Blood Venous blood specimen / Unknown [facility] Provider LAB BLOOD ORDERABLES Teresa l Result from Last 3 Months or Most Recently Relevant to Health Maintenance Insurance MEDICAID - [place] Care Teams Software Developer Relationship Specialty Start Date End Date Pretty Molina MD [address] [id number] PCP - General 06/01/23
--- OUTSIDE RECORDS SUMMARY | 2025-05-15 17:45 | XMS_ITS | Patient Health Record ---
Author Organization [facility] Address [address] [place] [address] Care Team Providers Care Blood Coordinator Name Role Phone Cecilio Hand M.D. Primary [...] social security Section Notes: She is a [place] of [place] [facility] [place] Problems Problem Type SNOMED Code ICD Code Onset Dates Problem Status W/U Status Risk Notes Problem Colon cancer screening (056890542) Colon cancer screening (Z12.11) Active confirmed Problem Long-term current use of antiplatelet drug (036258372074788) Long-term use of aspirin therapy (Z79.82) Active confirmed Plan Of Treatment Future Test Test Name Order Date COLONOSCOPY 07/06/2017 Insurance Providers Payer Name Payer Address Payer Phone Subscriber Number Group Number Insured Name Patient Relationship to Insured Coverage Start Date Coverage End Date [place] [address] [place] [phone] [id number] TEA CHAHAL Self - patient is the insured Medical (General) History Medical History History ICD Code Denies RI,DM,CVA,renal disease diabetes mellitus asthma hypertension nephropathy depression chronic pain burn scar contracture of uppper arm Surgical History Surgery Date(Month/Year) section burn grafts/ arm
== END 2025-05-15 16:23 | disposition home or self-care (01) ==
LOC: HO.HUSH 14:52
PROVIDERS: PCP Internal Medicine; Visit Provider Urology
DX: Z13.9 Encounter for screening, unspecified (principal)

== ENCOUNTER → 2025-05-15 14:52 | Outpatient (BNVA) | payer MEDICAID, SELFPAY | PROVIDERS: PCP Internal Medicine; Visit Provider Urology | DX: N30.11 Interstitial cystitis (chronic) with hematuria (principal); R35.0 Frequency of micturition; R31.29 Other microscopic hematuria; R10.20 Pelvic and perineal pain unspecified side; N28.1 Cyst of kidney, acquired; Z79.899 Other long term (current) drug therapy | CPT/HCPCS: 81003; 99212 ==

== ENCOUNTER 2025-05-29 13:09 | Outpatient (AMB) | payer MEDICAID, SELFPAY ==
[2025-05-29 13:28] VITALS: BP 153/81; PULSE 69; RESP 17; O2SAT 99; BMI 37.5
--- NOTE | 2025-05-29 13:28 | MHC.OFFVIS ---
Vital Signs 05/29/25 13:28 Height 5 ft 2 in Weight 205 lb 0.478 oz BMI 37.5 BP 153/81 H Blood Pressure Location Lt radial Position Sitting Respiration 17 Pulse 69 Pulse Source Pulse Oximeter Pulse Oximetry (%) 99 Oxygen Delivery Method Room Air Intake Visit Reasons: f/i constipation Crane Hoist Or Lift Operator Required: Yes Crane Hoist Or Lift Operator Name: DEIRDRE [id number] Allergies morphine (MORPHINE) Allergy (Unknown, Verified 05/15/25 15:16) UNKNOWN HPI Comments Details: 64 y.o F who is here to discuss repeat colo - as previous colo was poor prep. Pt seen with computer science professor. Pt reports constipation at baseline. Has to take bisacodyl and miralax 2-3 times a week to ensure daily BMs. Otherwise has hard stools that she has to strain for. Otherwise has no abd pain, N/V,D. No blood in stool. No fam hx of crc. Smokes 5-6 cigs/day. No etOH use. Last colo September 2023 - R colon not visualised. TA in transverse colon. Pt also reports lower back pain in lumbar area that is worse in the mornings, unchanged with BMs. PMH: septal hypertrophy, HTN, DM 10/03/24: Patient here for follow-up. Seen with the help of computer science professor. Has still not been booked for a colonoscopy, for which she is here. In terms of constipation, that is unchanged. Describes bowel movements as [place] scale 1-2. Takes MiraLax 1 to 2 times a day. Has not been taking bisacodyl on top. Also does not use fiber. Continues to smoke. 11/13/24: 1. Normal colon mucosa 2. Diverticulosis 3. Internal hemorrhoids 05/29/25: The patient is a 65 year old female presenting for follow-up. Results of colo reviewed which was normal with no polyps found, and she was advised a 10-year follow-up interval. At that time, she was started on Linzess for constipation, which she reports has been working well. The patient reports a recent onset of anal pain, which she notices particularly when sitting for a long time. She has a history of large hemorrhoids. She has a history of arthritis and experiences hip discomfort when sitting, but the anal pain is believed to be unrelated. [facility] Medical History Subcutaneous mass Asymmetric septal hypertrophy Heart block atrioventricular Chronic pain Depression Vascular insufficiency Lichen Hip pain Foot pain Foot callus Cubital tunnel syndrome Chronic vulvovaginitis Carpal tunnel syndrome Burn scar contracture of upper arm Blurring of visual image Mood disorder Hyperlipidemia Renal cyst Hematuria of unknown cause Smoker Arthritis Back pain Diabetes GERD (gastroesophageal reflux disease) Fibromyalgia Anxiety and depression MARK on CPAP Chronic sinusitis Asthma Elevated cholesterol HTN (hypertension) Surgical History Hx of cystoscopy S/P lumpectomy of breast (04/20/21) Hx of colonoscopy Hx of dilation and curettage H/O tubal ligation History of skin graft Family History Father No problems noted. Mother No problems noted. 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 - Gastrointestinal: Reports anal pain, particularly when sitting for extended periods. - Musculoskeletal: Reports a history of arthritis and hip discomfort while sitting. GI Reports constipation and Reports GI cramping Physical Exam Exam Exam: No apparent distress Nonicteric Abdomen soft, nondistended Alert and oriented x3, normal gait Vital Signs: Last Vital Signs Pulse 69 05/29/25 13:28 Resp 17 05/29/25 13:28 BP 153/81 H 05/29/25 13:28 Pulse Ox 99 05/29/25 13:28 Oxygen Delivery Method Room Air 05/29/25 13:28 BMI result Body Mass Index 37.5 Assessment & Plan Assessment & Plan (1) Hemorrhoids: Code(s): K64.9 - Unspecified hemorrhoids Category: Medical (2) Chronic idiopathic constipation: Code(s): K59.04 - Chronic idiopathic constipation Category: Medical (3) Encounter for screening colonoscopy: Code(s): Z12.11 - Encounter for screening for malignant neoplasm of colon Category: Medical Plan 1. Hemorrhoids The patient's anal pain, which occurs when sitting for long durations, is attributed to her known large hemorrhoids. Plan: - Avoid straining and constipation. - Start hydrocortisone topical OH x 14 days. - Take daily fiber - Use donut pillow will be recommended to alleviate pressure while sitting. 2. Constipation - The patient's constipation is well-controlled with Linzess. - She will continue her current medication regimen. 3. Colon Cancer Screening - The patient had a recent colonoscopy with no polyps found. - She is advised to have her next screening colonoscopy in 10 years. --- Pt was informed and consented to the use of ambient scribe for this encounter. --- Medications: New hydrocortisone 2.5% 1 appl OH BEDTIME PRN 30 grams 0RF hemorrhoids 14 days [donut pillow] As directed 1 ea 0RF psyllium husk (Reguloid (psyllium husk)) mix into at least 4 oz water or juice before administering 1 tsp PO DAILY 425 grams 0RF Patient Instructions: - Apply a small, pea-sized amount of steroid cream rectally every night before bed. - Take one teaspoon of a fiber supplement every day to help make your bowel movements softer. - Use a donut-shaped pillow when you sit to take pressure off the area. - Continue taking your Linzess medication for constipation as it is working well for you. - Your last colonoscopy was normal, so you do not need another one for 10 years. Coding Level of Care Code Est Pt Level 4 (74528) Diagnoses Hemorrhoids K64.9 Chronic idiopathic constipation K59.04 Encounter for screening colonoscopy Z12.11
--- OUTSIDE RECORDS SUMMARY | 2025-05-29 17:19 | XMS_ITS | Patient Health Record ---
Author Organization [facility] Address [address] [place] [address] Care Team Providers Care Central Supply Supervisor Name Role Phone Cecilio Hand M.D. [...] social security Section Notes: She is a [place] of the [facility] Problems Problem Type SNOMED Code ICD Code Onset Dates Problem Status W/U Status Risk Notes Problem Colon cancer screening (619481321) Colon cancer screening (Z12.11) Active confirmed Problem Long-term current use of antiplatelet drug (596278919994593) Long-term use of aspirin therapy (Z79.82) Active confirmed Plan Of Treatment Future Test Test Name Order Date COLONOSCOPY 07/06/2017 Insurance Providers Payer Name Payer Address Payer Phone Subscriber Number Group Number Insured Name Patient Relationship to Insured Coverage Start Date Coverage End Date MED[place] [place] [address] [place] [phone] [id number] CHAHAL Self - patient is the insured Medical (General) History Medical History History ICD Code Denies MS,DM,CVA,renal disease diabetes mellitus asthma hypertension nephropathy depression chronic pain burn scar contracture of uppper arm Surgical History Surgery Date(Month/Year) section burn grafts/ arm
--- OUTSIDE RECORDS SUMMARY | 2025-05-29 17:19 | XMS_ITS | Clinical Summary ---
Author Organization [facility] Address [address] [place] [address] Phone Care Team Providers Care Automatic Dispenser Mechanic Name Role Phone Pretty Molina MD [...] by mouth 2 times daily. Active ceramide 1,3,0-AH-hqmv-hyal ur (CeraVe PM) lotion,extended release Apply topically. [...] 2 times daily. Active miscellaneous medical supply [facility] [place] Does not apply route. Active NICOTINE, [...] HISTORICAL TUBAL LIGATION OTHER SURGICAL HISTORY PROCEDURE: ME GRAFT COMPOSITE W/PRIMARY CLOSURE DONOR AREA Medical History Medical History Date Comments HTN (hypertension) DX:HTN (hyper tension) Depression DX:Depression Chronic pain DX:Chronic pain Obesity DX:Obesity 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CMS/HCC V24, CMS/HCC V28) DX:Microalbuminuric diabeti c nephropathy (HCC) Hyperlipidemia DX:Hyperlipidemi a Carpal tunnel syndrome, bilateral DX:Carpal tunnel syndrome, bilateral Type 2 diabetes mellitus (CM S/HCC V24, CMS/HCC V28) DX:Type 2 diabetes mellitus (HCC) IBS (irritable [...] on file Sexual Orientation Not on file Last Filed Vital Signs Vital Sign Reading [...] Screening 1961 Colorectal Cancer Screening: Colonoscopy 1961 Drug Screen 1960 Non-Opioid Controlled Substa nce Agreement 1961 Diabetes: Annual Foot Exam 1971 Diabetes: [...] BMP Blood Test (01/10/2024) Pathologist [facility] Annual BMP Blood Test abstracted [facility] Provider HEALTH MAINTENANCE Final Result * Lipid panel (01/10/2024) [facility] Triglycerides 0 mg/dL Comment:no interpretation Cholesterol 0 mg/dL Comment:no interpretation HDL 0 mg/dL Comment:no interpretation LDL Cholesterol 0 mg/dL Comment:no interpretation Blood Venous blood specimen / Unknown [facility] Provider LAB BLOOD ORDERABLES Teresa l Result * Cervical Cancer Screening: HPV (04/18/2023) [facility] Cervical Cancer Screening: HPV No interpreta tion,abstr acted [facility] Provider [facility] Final Result * Hemoglobin A1c (07/20/2021) [facility] Hemoglobin A1C 0.0 % Comment:no interpretation Blood Venous blood specimen / Unknown [facility] Provider LAB BLOOD ORDERABLES Teresa l Result from Last 3 Months or Most Recently Relevant to Health Maintenance Insurance MED[place] - [place] Care Teams Automatic Dispenser Mechanic Relationship Specialty Start Date End Date Pretty Molina MD [address] [place] [address] [phone] PCP - General 06/01/23
== END 2025-05-29 13:55 | disposition home or self-care (01) ==
LOC: HO.HGI 13:09
PROVIDERS: PCP Internal Medicine; Visit Provider Internal Medicine
DX: K59.04 Chronic idiopathic constipation (principal); K64.8 Other hemorrhoids
CPT/HCPCS: 99214

== ENCOUNTER → 2025-05-29 13:09 | Outpatient (BNVA) | payer MEDICAID, SELFPAY | PROVIDERS: PCP Internal Medicine; Visit Provider Internal Medicine | DX: K59.04 Chronic idiopathic constipation (principal); K64.8 Other hemorrhoids; Z12.11 Encounter for screening for malignant neoplasm of colon | CPT/HCPCS: 99212 ==